=== PATIENT | male | born 1965 | race Caucasian/White ===

== ENCOUNTER 2022-01-25 18:08 | Emergency (ER) | payer MEDICAID, SELFPAY ==
--- NOTE | ~2022-01-25 | CT_ITS ---
EXAMINATION: CT LUMBAR SPINE WITHOUT CONTRAST CLINICAL INFORMATION: Acute on chronic pain sacrum COMPARISON: None TECHNIQUE: No intravenous contrast was utilized. Multidetector helical imaging was performed through the lumbar spine. Coronal and sagittal reformatted images were created. This CT examination was performed using dose optimization techniques as appropriate, variously including the following: *Automated exposure control *Adjustment of mA and/or kV according to patient size (this includes techniques or standardized protocols for targeted exams where dose is matched to indication/reason for exam; i.e. extremities or head) *Use of iterative reconstruction technique DLP; 484 mGy-cm FINDINGS: There is mild anterior wedge compression deformity of L1 which is favored to be chronic. Remaining lumbar vertebral body heights are maintained. Multilevel endplate osteophytes are present. No acute fracture is seen. Lumbar intervertebral disc spaces are relatively well-preserved. No significant stenoses identified, though this would be better assessed on MRI. The sacroiliac joints are intact with degenerative changes noted. Scattered vascular calcifications are present. CT/CT lumbar spine wo con IMPRESSION: Chronic appearing/degenerative changes as noted above. No acute fracture identified. If clinically warranted, assessment for stenoses would be better performed with MRI.
[2022-01-25 20:45] VITALS: BP 131/83; PULSE 89; RESP 16; TEMP 36.5; O2SAT 99; BMI 25.0
--- NOTE | 2022-01-26 02:11 | ED_ITS ---
HPI - General Adult General Chief complaint: Back Pain/Injury Stated complaint: severe back pain/ cant walk Time Seen by Provider: 01/26/22 00:33 Source: patient and family Limitations: no limitations History of Present Illness HPI narrative: This is a 56-year-old male who moved from [place] about 6 months ago. The patient has history of coccyx fracture after falling off of a horse. He subsequently had severe chronic pain and became addicted to opiates for a period of time, had to go through detox. The patient was receiving trigger point and other injections to the area in [place]. Patient has recently had worsened pain. He has had some falls, and his notes that he seems little more unsteady on his feet. He does have diabetes and has some neuropathy. He denies any difficulty with urination or incontinence. He notes the pain is so bad today that he is having trouble walking. Notes that he needs to get plugged into a cash control specialist or pain specialist in [place]. Related Data Previous Rx's Medication Instructions Recorded baclofen 20 mg tablet 20 mg PO TID #20 tab 01/26/22 naproxen 375 mg tablet,delayed 375 mg PO BID #20 tab 01/26/22 release (EC-Naprosyn) Allergies Allergy/AdvReac Type Severity Reaction Status Date / Time No Known Allergies Allergy Mild NONE Unverified 06/12/20 15:23 Review of Systems Review of Systems: As per HPI Yes all other systems are reviewed and are negative Constitutional: Constitutional: Denies fever(s) Eyes: Eyes: Reports as per HPI and Reports no additional eye complaints ENT: Reports system reviewed and no additional complaints, except as documented, Reports as per HPI, Denies nasal congestion, Denies nasal discharge and Denies sore throat Cardiovascular: Cardiovascular: Reports as per HPI, Denies chest pain and Denies dyspnea Respiratory: Respiratory: Reports as per HPI, Denies cough and Denies dyspnea Gastrointestinal: Gastrointestinal: Reports as per HPI, Denies abdominal pain, Denies diarrhea and Denies vomiting Genitourinary: Genitourinary: Reports as per HPI, Denies hematuria, Denies dysuria and Denies urinary frequency Musculoskeletal: Musculoskeletal: Reports back pain and Reports numbness (Decreased sensation to the legs secondary to diabetic neuropathy) Integumentary/Breasts: Skin/Breast: Reports as per HPI and Denies rash Neurologic: Reports numbness (Decreased sensation to the legs secondary to diabetic neuropathy) Psychiatric: Psychiatric: Reports no additional psychiatric complaints and Reports as per HPI Endocrine: Endocrine: Reports no additional endocrine complaints and Reports as per HPI Hematologic/Lymphatic: Hematologic/Lymphatic: Reports no additional hematologic/lymphatic complaints, Reports as per HPI and Reports other (No peripheral edema) Comments: Lower leg swelling [facility] Social History Social History Advance Directives: No Physical Exam ED Vital Signs: Vital Signs - 24 hr 01/25/22 20:45 01/26/22 03:11 Temperature 97.7 F Pulse Rate 89 71 Respiratory Rate 16 15 Blood Pressure 131/83 133/74 Pulse Oximetry 99 96 BMI result Body Mass Index 25.0 Const General: no acute distress Orientation/consciousness: patient oriented x3 HENMT Head: Yes normal to inspection General nose exam: Normal external nose present Mouth: moist mucous membranes Throat: Yes posterior oropharynx normal, Yes tonsils normal and Yes uvula midline Eyes Eyelids: Yes eyelids normal Conjunctivae: conjunctivae normal Pupils: Equal, round and reactive pupils present Neck Neck: Yes supple Resp Effort & Inspection: normal respiratory effort Auscultation: clear to auscultation bilaterally Cardio Rate: regular rate Rhythm: regular rhythm Heart sounds: S1 normal heart sound present, S2 normal heart sound present, no gallops, no murmurs and no rubs GI Inspection: No distended Palpation (GI): Soft to palpation and nontender Auscultation: normal bowel sounds Back/Spine/Pelvis Other: Tender sacral spine Skin General skin exam: other (Warm and dry) Neuro Other: Full power plantar flexion extension bilaterally General: patient oriented x3 and CN's II-XI intact bilaterally Cranial nerves: Yes Equal, round and reactive pupils present Extrem Other: Trace to 1+ pitting edema to the lower legs bilaterally, worse on the left General: Yes no pedal edema Psych Affect: normal affect Attitude: cooperative Medical Decision Making [facility] Narrative Medical decision making narrative: Patient with exacerbation of chronic low back pain, for which he has received extensive evaluation, steroid injections, trigger point injections in the past. Patient has a prior opiate use disorder related to his chronic pain, does not want to receive any opiate type medicines. Patient was given Toradol, Decadron, and Valium and had some improvement in his pain. CT scan not show any concerning findings, the patient has chronic degenerative changes but well- preserved disc heights, and oldL1 compression fracture. Discharge Plan Discharge Clinical Impression: Chronic sacroiliac pain Patient Disposition: Home, Self-Care Instructions: Chronic Pain (ED), Back Pain (ED) Additional Instructions: Follow-up with orthopedics. Use baclofen to help with muscle spasm. Use napr oxen for pain and inflammation Prescriptions: New baclofen 20 mg tablet 20 mg PO TID Qty: 20 0RF naproxen [EC-Naprosyn] 375 mg tablet,delayed release (DR/EC) 375 mg PO BID Qty: 20 0RF Referrals: Abisai Martin MD [Physician] -
[2022-01-26] MEDS: Ketorolac Tromethamine 30 MG/ML VIAL IM (03:00)
[2022-01-26] MEDS: diazePAM 10 MG/2 ML CARTRIDGE 5 MG IM (03:01)
[2022-01-26] MEDS: dexAMETHasone sod phosphate 4 MG/ML VIAL 8 MG IM (03:02)
[2022-01-26 03:11] VITALS: BP 133/74; PULSE 71; RESP 15; O2SAT 96
[2022-01-26 04:00] VITALS: BP 140/88; PULSE 74; RESP 18; TEMP 36.9; O2SAT 96
== END 2022-01-26 04:02 | disposition home or self-care (01) ==
PROVIDERS: Emergency Provider Emergency Medicine
DX: M54.50 Low back pain, unspecified (principal); Z79.899 Other long term (current) drug therapy
CPT/HCPCS: 72131; 96372; 99283; 99284; J1100; J1885; J3360

== ENCOUNTER 2022-06-23 09:08 | Inpatient (IN) | payer MEDICARE, SELFPAY ==
[2022-06-23] VITALS (9 sets, daily range): BP systolic 113–160; BP diastolic 64–116; PULSE 88–104; RESP 13–26; TEMP 36.3–39.5; O2SAT 95–100; BMI 26.7
--- NOTE | ~2022-06-23 | CT_ITS ---
EXAMINATION: CT HEAD WITHOUT CONTRAST CLINICAL INFORMATION: Status post fall with head strike. COMPARISON: None TECHNIQUE: Contiguous axial imaging was performed from the skull base to vertex without intravenous administration of contrast. Coronal and sagittal reformatted images were obtained. This CT examination was performed using dose optimization techniques as appropriate, variously including the following: *Automated exposure control *Adjustment of mA and/or kV according to patient size (this includes techniques or standardized protocols for targeted exams where dose is matched to indication/reason for exam; i.e. extremities or head) *Use of iterative reconstruction technique DLP: 1781 mGy-cm FINDINGS: There is mild widening of the cortical sulci and associated ventriculomegaly. The lateral ventricles are symmetrical. The third and fourth ventricles are in their normal midline position. The basilar and prepontine cisterns are unremarkable. There is no acute intra or extracerebral abnormality. There is no mass effect or midline shift. Sections through the bony calvarium are unremarkable. The orbits are intact. The paranasal sinuses are clear. The mastoid air cells are clear. Mild mid nasal septal deviation, apex of the right. CT/CT head/brain wo IV con IMPRESSION: No acute intracranial pathology.
--- NOTE | ~2022-06-23 | XR_ITS ---
EXAMINATION: XR CHEST CLINICAL INFORMATION: Fever and tachypnea COMPARISON: Previous chest x-ray August 2009 TECHNIQUE: Frontal view of the chest was obtained. FINDINGS: The cardiac and mediastinal contours are normal. The lung volumes are low. There are increased markings at the left lung base questionable for atelectasis or small pneumonia. There is minimal subsegmental atelectasis at the right lung base. There is no pleural effusion or pneumothorax. There are degenerative changes of the spine. XR/XR chest 1V IMPRESSION: Low lung volumes. Question atelectasis or small infiltrate at the left lung base.
--- NOTE | ~2022-06-23 | CT_ITS ---
EXAMINATION: CT LUMBAR SPINE WITHOUT CONTRAST CLINICAL INFORMATION: Fall, increased back pain. COMPARISON: CT lumbar spine noncontrast 01/26/2022 TECHNIQUE: CT lumbar spine is performed without intravenous or intrathecal contrast. Additional 2-D reformatted coronal and sagittal images are generated on the CT workstation and uploaded to PACS. This CT examination was performed using dose optimization techniques as appropriate, variously including the following: *Automated exposure control *Adjustment of mA and/or kV according to patient size (this includes techniques or standardized protocols for targeted exams where dose is matched to indication/reason for exam; i.e. extremities or head) *Use of iterative reconstruction technique DLP; 541 mGy-cm FINDINGS: There is normal lumbar segmentation with 5 nonrib-bearing lumbar vertebrae with normal lumbar lordosis. There is no acute bony abnormality. Old L1 superior endplate depression is similar to prior CT 01/26/2022. This again shows ridging anterior osteophyte. There is no visible fracture and no spondylolisthesis or spondylolysis. No perched facet. No interval joint narrowing. No bony destructive process. No paraspinal soft tissue swelling. No retroperitoneal hematoma. The kidney show no hydronephrosis or perinephric stranding. Abdominal aorta shows no aneurysmal enlargement. CT/CT lumbar spine wo IV con IMPRESSION: -No acute bony abnormality. No visible fracture, spondylolisthesis, or spondylolysis. -Superior endplate depression L1, similar to prior CT 01/26/2022. No paraspinal soft tissue swelling or retroperitoneal hematoma.
--- NOTE | 2022-06-23 09:32 | ECG_ITS ---
Test Reason : Fall Blood Pressure : / mmHG Vent. Rate : 096 BPM Atrial Rate : 096 BPM P-R Int : 148 ms QRS Dur : 086 ms QT Int : 344 ms P-R-T Axes : -25 -28 -18 degrees QTc Int : 434 ms Normal sinus rhythm Nonspecific T wave abnormality Abnormal ECG When compared with ECG of 09-SEP-2009 16:25, Nonspecific T wave abnormality is now Present Referred By: Ashlee Greenfield Electronically Signed By:NASIM FONTENOT
--- NOTE | 2022-06-23 09:32 | ED_ITS ---
HPI - Fall General Chief Complaint: Fall Stated Complaint: witnessed fall- no head strike Time Seen by Provider: 06/23/22 09:18 Source: patient and family Limitations: no limitations History of Present Illness HPI Narrative: Patient presents your the emergency department via EMS with his sister. Sister aids in providing detailed history and past medical history. Patient reportedly had a fall today. Patient states that his legs gave out. Patient's sister reports that this is not uncommon. His gait is unsteady reportedly due to the medications he takes to control his psychiatric conditions he is ambulatory with a cane at baseline and sometimes a walker. Last fall was earlier this month. Typically she is able to get him up with the assist of family members but today was unable to therefore EMS was called. The fall was witnessed. Denies loss of consciousness. Uncertain whether head strike occurred. Patient denies headach e, dizziness, lightheadedness, vision changes, neck pain, neck stiffness. He is reporting lower back pain. Denies chest pain, palpitations, shortness of, difficulty breathing nausea, vomiting, abdominal pain, dysuria, urinary frequency, numbness or tingling of the extremities. Patient is noted to have a resting tremor to all extremities which per his sister is normal at baseline. Denies any precipitating symptoms over the past few days. Related Data Home Medications Medication Instructions Recorded Confirmed acetaminophen 650 mg 650 mg PO TID 06/23/22 06/23/22 tablet,extended release (Mapap Arthritis Pain) benztropine 0.5 mg tablet 1 tab PO QPM 06/23/22 06/23/22 diclofenac sodium 1 % topical gel 2 g topical BID PRN Pain 06/23/22 06/23/22 divalproex 500 mg tablet,delayed 2 tab PO DAILY 06/23/22 06/23/22 release duloxetine 30 mg capsule,delayed 1 cap PO DAILY 06/23/22 06/23/22 release fluoxetine 20 mg capsule 2 cap PO BID 06/23/22 06/23/22 gabapentin 300 mg capsule 1 cap PO TID 06/23/22 06/23/22 hydrocortisone 1 % topical cream 1 appl topical BID PRN Rash 06/23/22 06/23/22 insulin glargine 100 unit/mL (3 25 unit subcut QAM 06/23/22 06/23/22 mL) subcutaneous pen (Lantus Solostar U-100 Insulin) insulin lispro 100 unit/mL 0 sliding scale dose subcut TIDAC 06/23/22 06/23/22 subcutaneous pen lidocaine 4 % topical cream 1 appl topical BID PRN pain 06/23/22 06/23/22 metoprolol tartrate 50 mg tablet 1 tab PO BID 06/23/22 06/23/22 omeprazole 40 mg capsule,delayed 1 cap PO DAILY 06/23/22 06/23/22 release primidone 50 mg tablet 1 tab PO DAILY 06/23/22 06/23/22 quetiapine 100 mg tablet 200 mg PO BEDTIME 06/23/22 06/23/22 rosuvastatin 40 mg tablet 1 tab PO BEDTIME 06/23/22 06/23/22 trazodone 100 mg tablet 1 tab PO BEDTIME 06/23/22 06/23/22 ziprasidone HCl 60 mg capsule 1 cap PO BEDTIME 06/23/22 06/23/22 Allergies Allergy/AdvReac Type Severity Reaction Status Date / Time No Known Allergies Allergy Mild NONE Unverified 06/12/20 15:23 Review of Systems Review of Systems: Constitutional: No weight loss. No fever. No chills. Positive weakness. No fatigue. Eye: No swelling. No redness. ENT: No sore throat. No rhinorrhea. No nasal congestion. No difficulty swallowing. Skin: No rash. No itching. Cardiovascular: No chest pain. No chest pressure. No palpitations. No pedal edema. Respiratory: No shortness of breath. No cough. No sputum production. Gastrointestinal: No nausea. No vomiting. No diarrhea. No abdominal pain. No blood in stool. Genitourinary: No burning micturition. No urinary frequency. No incontinence. Neurologic: No headache. No dizziness. No pre-syncope/ syncope. No unilateral weakness. No numbness. No tingling. No change in bowel or bladder control. Musculoskeletal: No muscle pain. Positive back pain. No joint pain. No stiffness. Hematologic: No bleeding. No bruising. Lymphatics: No enlarged lymph nodes. Psychiatric:No depression. No anxiety. Yes all other systems are reviewed and are negative PMFSH Past Medical History Attestation statement: The following information was validated with the patient. Source: old records reviewed Medical History Bipolar 1 disorder Chronic low back pain Depression Schizophrenia Tremor of both hands Type 2 diabetes mellitus Family History Family History Mother HTN (hypertension) Diabetes Alzheimer disease Father Diabetes HTN (hypertension) Schizophrenia PVD (peripheral vascular disease) CAD (coronary artery disease) Bipolar 1 disorder Social History Social History Patient Tobacco Use Status: Former Tobacco user Use of substances other than those prescribed or required for medical reasons: No Advance Directives: No Physical Exam Vital Signs: Vital Signs: Last Vital Signs Temp 99.6 F 06/23/22 14:58 Pulse 94 06/23/22 14:54 Resp 21 H 06/23/22 14:54 BP 146/64 H 06/23/22 14:54 Pulse Ox 98 06/23/22 14:54 O2 Del Method 06/23/22 14:54 BMI result Body Mass Index 26.7 Appearance: Alert.?Oriented to person, place and time. No acute distress.?Normal affect. Head: Normocephalic atraumatic Eyes: Pupils equal, round and reactive to light.? EOMI ENT: Pharynx normal.?? Neck: Normal inspection.? Neck supple.? No midline cervical spine tenderness, step-offs, deformities Back: No midline thoracic or lumbar spine tenderness, step-offs, deformities? CVS: Heart sounds normal. Normal heart rate and rhythm.? Pulses normal.?? Respiratory: No respiratory distress.? Lung sounds clear to auscultation bilaterally?? Abdomen: Soft and non-tender. Normoactive bowel sounds. Skin: Skin warm and dry.? Normal skin color.? ? Extremities: No lower extremity edema.? No calf ttp? Neuro: Moves all extremities spontaneously. Sensation intact bilaterally. CN II- XII intact. No focal neuro deficits. Course Course Course Narrative: Patient is a 57-year-old male with a past medical history of chronic back pain, bipolar disorder, schizophrenia, hypertension, type 2 diabetes, and chronic resting tremor. Presents to the emergency department for evaluation after a fall, reportedly due to legs giving out which is not uncommon for patient. Denies any precipitating symptoms. Only complaint at this time is lower back pain. Moving all extremities appropriately. Will obtain CBC to evaluate for leukocytosis/ anemia, CMP to evaluate for abnormal electrolytes /abnormal renal function/ abnormal hepatic function, EKG and troponin to evaluate for ischemia/ACS, Urinalysis, CT of the head and CT of lumbar spine. Reevaluation(s) Reevaluation #1: CT of the head with no acute abnormalities. CT of the lumbar spine with no acute abnormalities, similar L1 endplate depression as seen previously. CBC reveals a normocytic anemia, CMP is overall unremarkable. Troponin <3.5, EKG reveals normal sinus rhythm. Patient's sister reporting that his tremor appears to be worse than baseline at this time. Notified by nursing staff that he is febrile 103.1, pulse 104,will obtain lactic acid, blood cultures, urinalysis as previously ordered, chest x-ray, COVID-19, acetaminophen for fever. Infection suspected at this time, will cover prophylactically with Ceftriaxone IV for possible pulmonary or genitourinary source of infection. Patient is altered, attempting to get out to bed, unsteady gait, unable to state where he is trying to go, oriented only to person. Time: 11:57 Reevaluation #2: Chest x-ray reveals question of atelectasis versus small infiltrate at the left lung base. Urinalysis is unremarkable no evidence of infection. COVID-19 testing is negative. Lactic acid is 1.5. Spoke with hospitalist Service, Dr. Sigala, accepts patient for admission to medicine service. Patient and sister, Moriah updated on plan of care. Time: 13:21 MDM - Fall Medical Records Attestation: I reviewed the patient's medical records. Lab Data Attestation: I reviewed the patient's lab results. Result diagrams: 06/23/22 10:44 06/23/22 10:44 Labs: Lab Results 06/23/22 06/23/22 06/23/22 Range/Units 10:44 10:44 10:44 WBC 8.3 (4.8-10.8) X10*3/uL RBC 4.52 L (4.60-5.80) X10*6/uL Hgb 13.5 L (14.0-18.0) g/dl Hct 39.2 L (42.0-52.0) % MCV 86.7 (80.0-98.0) fL MCH 29.9 (27.0-33.0) pg MCHC 34.4 (31.0-36.0) g/dl RDW 12.3 (11.0-16.0) % Plt Count 155 L (160-400) X10*3/uL MPV 9.4 (9.4-12.4) fL Immature Gran % (Auto) 0.2 (0.0-0.4) % Neut % (Auto) 80.2 H (45-73) % Lymph % (Auto) 9.6 L (20-40) % [place] % (Auto) 7.7 (2-11) % Eos % (Auto) 1.9 (0-4) % Baso % (Auto) 0.4 (0-2) % Lymph # (Auto) 0.8 L (1.2-4.9) X10*3/uL [place] # (Auto) 0.6 (0.1-1.2) X10*3/uL Eos # (Auto) 0.2 (0.0-0.4) X10*3/uL Baso # (Auto) 0.0 (0.0-0.2) X10*3/uL Abs Immat Gran (auto) 0.02 (0.00-0.03) X10*3/uL Absolute Neuts (auto) 6.7 (2.0-8.3) x10*3/uL Absolute Nucleated RBC 0.000 (0.0-0.012) X10*3/uL Nucleated RBC % (auto) 0.0 (0.0-0.2) /100WBC Sodium 140 (135-145) mmol/L Potassium 3.9 (3.3-5.1) mmol/L Chloride 99 (96-108) mmol/L Carbon Dioxide 32 H (22-29) mmol/L Anion Gap 13 (12-20) BUN 9 (9-16) mg/dL Creatinine 1.10 (0.5-1.4) mg/dL Estim Creat Clear Calc 70.8 Estimated GFR > 60 Random Glucose 165 H (60-115) mg/dL Lactic Acid (0.5-2.0) mmol/L Calcium 9.8 (8.4-10.2) mg/dL Magnesium 1.6 (1.6-2.6) mg/dL Total Bilirubin 0.5 (0.0-1.0) mg/dL AST 21 (5-37) U/L ALT 33 (0-40) U/L Alkaline Phosphatase 76 (39-117) U/L Troponin I High Sens < 3.5 (<3.5-35.0) ng/L Total Protein 7.4 (6.5-8.0) g/dL Albumin 4.2 (3.5-5.0) g/dL Urine Color Urine Appearance Urine pH (5.0-9.0) Ur Specific [place] (1.005-1.025) Urine Protein (Neg-Trace) mg/dL Urine Glucose (UA) (Negative) mg/dL Urine Ketones (Negative) mg/dL Urine Blood (Negative) Urine Nitrite (Negative) Ur Leukocyte Esterase (Negative) COVID-19 (JERO) (Negative) COVID-19 Clin Com 06/23/22 06/23/22 06/23/22 Range/Units 12:26 12:26 12:55 WBC (4.8-10.8) X10*3/uL RBC (4.60-5.80) X10*6/uL Hgb (14.0-18.0) g/dl Hct (42.0-52.0) % MCV (80.0-98.0) fL MCH (27.0-33.0) pg MCHC (31.0-36.0) g/dl RDW (11.0-16.0) % Plt Count (160-400) X10*3/uL MPV (9.4-12.4) fL Immature Gran % (Auto) (0.0-0.4) % Neut % (Auto) (45-73) % Lymph % (Auto) (20-40) % [place] % (Auto) (2-11) % Eos % (Auto) (0-4) % Baso % (Auto) (0-2) % Lymph # (Auto) (1.2-4.9) X10*3/uL [place] # (Auto) (0.1-1.2) X10*3/uL Eos # (Auto) (0.0-0.4) X10*3/uL Baso # (Auto) (0.0-0.2) X10*3/uL Abs Immat Gran (auto) (0.00-0.03) X10*3/uL Absolute Neuts (auto) (2.0-8.3) x10*3/uL Absolute Nucleated RBC (0.0-0.012) X10*3/uL Nucleated RBC % (auto) (0.0-0.2) /100WBC Sodium (135-145) mmol/L Potassium (3.3-5.1) mmol/L Chloride (96-108) mmol/L Carbon Dioxide (22-29) mmol/L Anion Gap (12-20) BUN (9-16) mg/dL Creatinine (0.5-1.4) mg/dL Estim Creat Clear Calc Estimated GFR Random Glucose (60-115) mg/dL Lactic Acid 1.5 (0.5-2.0) mmol/L Calcium (8.4-10.2) mg/dL Magnesium (1.6-2.6) mg/dL Total Bilirubin (0.0-1.0) mg/dL AST (5-37) U/L ALT (0-40) U/L Alkaline Phosphatase (39-117) U/L Troponin I High Sens (<3.5-35.0) ng/L Total Protein (6.5-8.0) g/dL Albumin (3.5-5.0) g/dL Urine Color Yellow Urine Appearance Clear Urine pH 8.5 (5.0-9.0) Ur Specific [place] 1.015 (1.005-1.025) Urine Protein Negative (Neg-Trace) mg/dL Urine Glucose (UA) 500 H (Negative) mg/dL Urine Ketones Negative (Negative) mg/dL Urine Blood Negative (Negative) Urine Nitrite Negative (Negative) Ur Leukocyte Esterase Negative (Negative) COVID-19 (JERO) Negative (Negative) COVID-19 Clin Com See Note Imaging Data CT scan - head: Radiologist's impression: CT/CT head/brain wo IV con IMPRESSION: No acute intracranial pathology. CT Lumbar: Radiologist's impression: CT/CT lumbar spine wo IV con IMPRESSION: -No acute bony abnormality. No visible fracture, spondylolisthesis, or spondylolysis. ? -Superior endplate depression L1, similar to prior CT 01/26/2022. No paraspinal soft tissue swelling or retroperitoneal hematoma.? Chest x-ray: Radiologist's impression: XR/XR chest 1V IMPRESSION: Low lung volumes. Question atelectasis or small infiltrate at the left lung base. ECG Data Attestation: I personally reviewed and interpreted this ECG as follows: ECG interpretation date: 06/23/22 Interpretation: Rate: 96 Rhythm:? Normal sinus rhythm [place]:? Normal Normal P waves.? Normal JAMAL.?? Normal QRS complex.?? ST T wave :??No ST elevation, no ST depression, no T-wave inversion qTC: 434 prior studies:? None available for review The study has been interpreted contemporaneously by me. Discharge Plan Discharge Clinical Impression: Community acquired pneumonia Patient Disposition: Admitted As Inpatient
[2022-06-23 10:47] LABS: MANUAL DIFF FLAG NO
[2022-06-23 10:50] LABS: Basophils Percent Auto 0.4 % (0-2); Eosinophils Absolute Auto 0.2 X10*3/uL (0.0-0.4); Eosinophils Percent Auto 1.9 % (0-4); Hematocrit 39.2 % (42.0-52.0); Hemoglobin 13.5 g/dl (14.0-18.0); Imm Gran Abs Auto 0.02 X10*3/uL (0.00-0.03); Imm Gran Pct Auto 0.2 % (0.0-0.4); Lymphocytes Absolute Auto 0.8 X10*3/uL (1.2-4.9); Lymphocytes Percent Auto 9.6 % (20-40); Mean Corpuscular HGB Conc 34.4 g/dl (31.0-36.0); Mean Corpuscular Hemoglobin 29.9 pg (27.0-33.0); Mean Corpuscular Volume 86.7 fL (80.0-98.0); Mean Platelet Volume 9.4 fL (9.4-12.4); Monocytes Absolute Auto 0.6 X10*3/uL (0.1-1.2); Monocytes Percent Auto 7.7 % (2-11); Neutrophils Absolute Auto 6.7 x10*3/uL (2.0-8.3); Neutrophils Percent Auto 80.2 % (45-73); Platelet Count 155 X10*3/uL (160-400); Red Blood Count 4.52 X10*6/uL (4.60-5.80); Red Cell Distribution Width 12.3 % (11.0-16.0); White Blood Count 8.3 X10*3/uL (4.8-10.8)
[2022-06-23 11:07] LABS: Troponin-I High Sensitivity < 3.5 ng/L (<3.5-35.0)
[2022-06-23 11:09] LABS: Alanine Aminotransferase 33 U/L (0-40); Albumin Level 4.2 g/dL (3.5-5.0); Alkaline Phosphatase 76 U/L (39-117); Anion Gap 13 (12-20); Aspartate Amino Transferase 21 U/L (5-37); Bilirubin Total 0.5 mg/dL (0.0-1.0); Blood Urea Nitrogen 9 mg/dL (9-16); Calcium 9.8 mg/dL (8.4-10.2); Carbon Dioxide 32 mmol/L (22-29); Chloride 99 mmol/L (96-108); Creatinine Clr Calc Pharmacy 70.8; Estimated Glomerular Filt Rate > 60; Glucose Random 165 mg/dL (60-115); Magnesium 1.6 mg/dL (1.6-2.6); Potassium 3.9 mmol/L (3.3-5.1); Sodium 140 mmol/L (135-145); Total Protein 7.4 g/dL (6.5-8.0)
--- NOTE | 2022-06-23 12:14 | PC.NURSE ---
PT BP is with in the normal limit, Pt is on the telemetry and it shows sinus TACHY, AND HE IS AFRIBILE OF 103.1. RN notified provider. will continue to monitor.
[2022-06-23] MEDS: 0.9 % Sodium Chloride 1,000 ML 999 ML IV (12:22)
[2022-06-23] MEDS: cefTRIAXone sodium 1 GM in 0.9 % Sodium Chloride 50 ML IV (12:38)
[2022-06-23] MEDS: Acetaminophen 325 MG TABLET 975 MG PO (12:57)
[2022-06-23 13:09] LABS: Lactic Acid 1.5 mmol/L (0.5-2.0)
--- NOTE | 2022-06-23 13:09 | PC.NURSE ---
Addendum entered by Pepito Norman 06/23/22 13:19: Pt had the V/S at 11:a.m. Pt had a fiber of 103.1 rectal, MARIA ALEJANDRA Ge and provider was notified. This RN completed the assessment on pt but pt was restless and not communicating very well verbally. Pt nanny caregiver/sister is at bedside, and reported that was not normal of him to not talk. Pt had the alert on sepsis protocol and the check list and labs were drawn. Pt had IVF, and meds administered by order. RN will continue with condom cath. Will continue to monitor. Original Note: Sepsis protocol check list was completed. Pt is frible and BP is within the normal limit, pt is restlessness, and the condom cath fall off, RN will placed another condom cath. Pt was given a thin blanket and meds as order by the provider. Pt on the monitor is Sinus Tachy. RR 24. Will continue to monitor.
[2022-06-23 13:12] LABS: Appearance Urine Clear; Color Urine Yellow; Glucose Urine UA 500 mg/dL (Negative); Leukocyte Esterase Urine Negative (Negative); Nitrite Urine Negative (Negative); PH 8.5 (5.0-9.0); Specific Gravity - Urine 1.015 (1.005-1.025); Urine Blood Negative (Negative); Urine Ketones Negative (Negative); Urine Protein Negative (Neg-Trace)
[2022-06-23 13:14] LABS: COVID-19 Test Negative (Negative); IDNOW Serial# 9DB6401D
--- NOTE | 2022-06-23 13:45 | PC.NURSE ---
Pt IVF still running.
--- NOTE | 2022-06-23 14:21 | PM.IMHP ---
History of Present Illness Date of Service: 06/23/22 Attending physician on admission: Sj Sigala Chief Complaint: fall Patient is a 57-year-old male with a past medical history of chronic back pain, bipolar disorder, schizophrenia, hypertension, type 2 diabetes, and chronic tremor presented to the ED this morning after sustaining a fall because his legs gave out . The patient is a poor historian and much of the history is obtained from his sister with whom the patient lives. His sister, Moriah, states that the patient has had multiple recurrent falls related to his psychiatric medications making him on stable when walking as well as groggy. He does ambulate with a cane and occasionally a walker at baseline. On arrival, she stated she was uncertain of whether had trace occurred. The patient does deny any headaches, dizziness, lightheadedness, blurred vision, diplopia, neck pain, palpitations, shortness of breath, chest pain, nausea, vomiting, abdominal pain, urinary symptoms. He is reporting low back pain but this is noted to be chronic. Head CT negative for any acute intracranial abnormality. CT of the lumbar spine without any acute bony abnormality including fracture, spondylolisthesis, or spondylosis. There is a carrier endplate depression at L1 that has been unchanged without any paraspinal soft tissue swelling or retroperitoneal hematoma. Chest x-ray with low lung volumes as well as question of atelectasis versus small infiltrate at the left lung base. Patient noted to be febrile at 103.1, tachycardia 104, and tachypneic at 26. no hypotension or hypoxia. No leukocytosis. Lactic acid 1.5. Renal function normal. He denies fevers at home, chills, cough, sob, wheezing. No chronic lung disease. Patient denies any smoking. Patient to be admitted for left lower lobe pneumonia with sepsis as well as recurrent falls. Review of Systems Review of Systems: General: No fevers, malaise, unintentional weight loss HEENT: No blurred vision or diplopia Cardiovascular: No chest pain, palpitations, or leg edema Respiratory: No shortness of breath, wheezing, cough GI: No abdominal pain, nausea, vomiting, diarrhea, constipation, melena, hematochezia : No dysuria, hematuria, increased urinary frequency MSK: +low back pain, +falls Neuro: +weakness. No headaches, paresthesias Skin: No rashes or lesions [facility] Medical History Bipolar 1 disorder Chronic low back pain Depression Schizophrenia Tremor of both hands Type 2 diabetes mellitus Family History Mother HTN (hypertension) Diabetes Alzheimer disease Father Diabetes HTN (hypertension) Schizophrenia PVD (peripheral vascular disease) CAD (coronary artery disease) Bipolar 1 disorder Social History Patient Tobacco Use Status: Former Tobacco user Use of substances other than those prescribed or required for medical reasons: No Advance Directives: No Meds Allergies Allergy/AdvReac Type Severity Reaction Status Date / Time No Known Allergies Allergy Mild NONE Unverified 06/12/20 15:23 Active Medications: Current Medications Acetaminophen (Acetaminophen 325 Mg Tablet) 650 mg PO Q6H PRN PRN Reason: Pain, Mild, fever Docusate Sodium (Docusate Sodium 100 Mg Capsule) 100 mg PO BID PRN PRN Reason: Constipation Enoxaparin Sodium (Enoxaparin Sodium 40 Mg/0.4 Ml Syringe) 40 mg SUBCUT Q24H [facility] Azithromycin 500 mg/ Sodium (Chloride) 250 mls @ 125 mls/hr IV ONCE ONE Stop: 06/23/22 15:28 Ondansetron HCl (Ondansetron Hcl 4 Mg/2 Ml Vial) 4 mg IVPUSH Q8H PRN PRN Reason: Nausea and Vomiting Pharmacy Consult (Consult Rx Perform Med Rec) 1 each MISCELLANE ONCE PRN PRN Reason: Consult order Sodium Chloride (0.9 % Sodium Chloride Flush 3 Ml Syringe) [facility] Medication Instructions Recorded Confirmed Last Taken Type acetaminophen 650 mg 650 mg PO TID 06/23/22 06/23/22 06/23/22 History tablet,extended release (Mapap Arthritis Pain) benztropine 0.5 mg tablet 1 tab PO QPM 06/23/22 06/23/22 06/22/22 History diclofenac sodium 1 % topical gel 2 g topical BID PRN Pain 06/23/22 06/23/22 Unknown History divalproex 500 mg tablet,delayed 2 tab PO DAILY 06/23/22 06/23/22 06/23/22 History release duloxetine 30 mg capsule,delayed 1 cap PO DAILY 06/23/22 06/23/22 06/23/22 History release fluoxetine 20 mg capsule 2 cap PO BID 06/23/22 06/23/22 06/23/22 History gabapentin 300 mg capsule 1 cap PO TID 06/23/22 06/23/22 06/23/22 History hydrocortisone 1 % topical cream 1 appl topical BID PRN Rash 06/23/22 06/23/22 Unknown History insulin glargine 100 unit/mL (3 25 unit subcut QAM 06/23/22 06/23/22 06/23/22 History mL) subcutaneous pen (Lantus Solostar U-100 Insulin) insulin lispro 100 unit/mL 0 sliding scale dose subcut TIDAC 06/23/22 06/23/22 06/23/22 History subcutaneous pen lidocaine 4 % topical cream 1 appl topical BID PRN pain 06/23/22 06/23/22 Unknown History metoprolol tartrate 50 mg tablet 1 tab PO BID 06/23/22 06/23/22 06/23/22 History omeprazole 40 mg capsule,delayed 1 cap PO DAILY 06/23/22 06/23/22 06/23/22 History release primidone 50 mg tablet 1 tab PO DAILY 06/23/22 06/23/22 06/23/22 History quetiapine 100 mg tablet 200 mg PO BEDTIME 06/23/22 06/23/22 06/22/22 History rosuvastatin 40 mg tablet 1 tab PO BEDTIME 06/23/22 06/23/22 06/22/22 History trazodone 100 mg tablet 1 tab PO BEDTIME 06/23/22 06/23/22 06/22/22 History ziprasidone HCl 60 mg capsule 1 cap PO BEDTIME 06/23/22 06/23/22 06/22/22 History Physical Exam Vital Signs and Narrative: Vital Signs: Last Vital Signs Temp 102.5 F H 06/23/22 12:16 Pulse 104 H 06/23/22 12:16 Resp 26 H 06/23/22 12:16 BP 137/94 H 06/23/22 12:16 Pulse Ox 100 06/23/22 12:16 O2 Del Method 06/23/22 12:16 BMI result Body Mass Index 26.7 Constitutional - Drowsy providing limited history, but no distress Eyes - PERRLA, EOMI Cardiovascular - S1S2, RRR, No edema Respiratory - Normal lung expansion, Normal respiratory effort, No respiratory distress, CTA bilaterally Gastrointestinal - NT / ND; +BS; No rebound or guarding Extremities - no calf tenderness bilaterally, no swelling Skin - Warm/Dry Neurological - Alert & oriented x3 but a poor historian, CN II - XII in tact, 4/5 strength BUE and BLE Psychological - Appropriate affect Results Labs CBC and Chem 7: 06/23/22 10:44 06/23/22 10:44 Labs: Laboratory Results - last 24 hr 06/23/22 06/23/22 06/23/22 10:44 10:44 12:26 MCV 86.7 MCH 29.9 MCHC 34.4 RDW 12.3 Plt Count 155 L MPV 9.4 Immature Gran % (Auto) 0.2 Neut % (Auto) 80.2 H Lymph % (Auto) 9.6 L [place] % (Auto) 7.7 Eos % (Auto) 1.9 Baso % (Auto) 0.4 Lymph # (Auto) 0.8 L [place] # (Auto) 0.6 Eos # (Auto) 0.2 Baso # (Auto) 0.0 Abs Immat Gran (auto) 0.02 Absolute Neuts (auto) 6.7 Absolute Nucleated RBC 0.000 Nucleated RBC % (auto) 0.0 Anion Gap 13 Estim Creat Clear Calc 70.8 Estimated GFR > 60 Random Glucose 165 H Lactic Acid 1.5 Calcium 9.8 Magnesium 1.6 Total Bilirubin 0.5 AST 21 ALT 33 Alkaline Phosphatase 76 Total Protein 7.4 Albumin 4.2 Urine Color Urine Appearance Urine pH Ur Specific [place] Urine Protein Urine Glucose (UA) Urine Ketones Urine Blood Urine Nitrite Ur Leukocyte Esterase COVID-19 (JERO) COVID-19 Clin Com 06/23/22 06/23/22 12:26 12:55 MCV MCH MCHC RDW Plt Count MPV Immature Gran % (Auto) Neut % (Auto) Lymph % (Auto) [place] % (Auto) Eos % (Auto) Baso % (Auto) Lymph # (Auto) [place] # (Auto) Eos # (Auto) Baso # (Auto) Abs Immat Gran (auto) Absolute Neuts (auto) Absolute Nucleated RBC Nucleated RBC % (auto) Anion Gap Estim Creat Clear Calc Estimated GFR Random Glucose Lactic Acid Calcium Magnesium Total Bilirubin AST ALT Alkaline Phosphatase Total Protein Albumin Urine Color Yellow Urine Appearance Clear Urine pH 8.5 Ur Specific [place] 1.015 Urine Protein Negative Urine Glucose (UA) 500 H Urine Ketones Negative Urine Blood Negative Urine Nitrite Negative Ur Leukocyte Esterase Negative COVID-19 (JERO) Negative COVID-19 Clin Com See Note Imaging Radiologist's Impressions: Impressions Head CT 06/23/22 10:38 IMPRESSION: No acute intracranial pathology. Lumbar Spine CT 06/23/22 10:38 IMPRESSION: -No acute bony abnormality. No visible fracture, spondylolisthesis, or spondylolysis. -Superior endplate depression L1, similar to prior CT 01/26/2022. No paraspinal soft tissue swelling or retroperitoneal hematoma. Chest X-Ray 06/23/22 12:04 IMPRESSION: Low lung volumes. Question atelectasis or small infiltrate at the left lung base. Assessment and Plan (1) Community acquired pneumonia: Status: Acute (2) Sepsis: Status: Acute (3) Recurrent falls: Status: Acute Plan Patient is a 57-year-old male with a past medical history of chronic back pain, bipolar disorder, schizophrenia, hypertension, type 2 diabetes, and chronic tremor admitted for pneumonia with sepsis and recurrent falls. 1-Sepsis secondary to pneumonia -Received 1L NS bolus in ED. Continue IVF -Continue rocephin and change zithromax to doxy -No leukocytosis. Febrile, tachycardia likely secondary to fever, and tachypenic. 2-Pneumonia -CXR with lll infiltrate. COVID19 negative -Continue IV ceftriaxone. Change zithromax to doxycycline -Not hypoxic 3-Recurrent falls -He and sister report psychiatric medications cause drowsiness and unsteadiness. -Psych consult placed for medication review -PT eval ordered 4-Insulin dependent type 2 diabetes -Continue lantus. Humalog ssi -POC glucose -Diabetic diet 5-Schizophrenia/bipolar disorder -Continue home meds for now -psych consult placed 6-Chronic low back pain -lumbar CT without acute changes -Continue gabapentin and tylenol 7-HLD -Continue crestor DVT prophylaxis- lovenox Full code Pt reuquires inpt stay at least 2 midnights for management of pneumonia with sepsis requiring IV abx and IVF. Quality Stroke Does the patient have a stroke diagnosis?: No VTE Prior VTE?: No VTE Risk Level:: Medical - moderate - high VTE Device Contraindication: Treatment Not Indicated VTE Drug Contraindication: N/A - Med Ordered
--- NOTE | 2022-06-23 14:27 | PHA.MEDREC ---
Pharmacy Consult ? Medication Reconciliation Pharmacy has completed the medication reconciliation. Contacted patient's sister, Moriah, who was able to confirm patient medications. Yoselin Pedroza, TeresaD
[2022-06-23] MEDS: Azithromycin 500 MG in 0.9 % Sodium Chloride 250 ML 125 MG IV (14:57)
[2022-06-23] MEDS: Enoxaparin Sodium 40 MG/0.4 ML SYRINGE SUBCUT (14:58)
--- NOTE | 2022-06-23 15:17 | PC.NURSE ---
Pt IVF were running slow, Pt first V/S was obtain and were normal. Pt has low grade fever. Pt administer meds as order. Pt Antibiotics are running. will obtain then second BP within an hour.
[2022-06-23] MEDS: Acetaminophen 325 MG TABLET 650 MG PO (17:12)
--- NOTE | 2022-06-23 17:14 | PC.NURSE ---
patient a&ox2, pt medicated for 10/ headache with tylenol, monitoring tech nsr, vss, pts iv antibiotics continue to run as he has to be reminded to keep arm straight, will begin LR after abx finished, call ribeiro within reach, will continue to monitor
[2022-06-23] MEDS: Benztropine Mesylate 0.5 MG TABLET PO (18:02)
--- NOTE | 2022-06-23 18:03 | PC.NURSE ---
pt medicated per order
[2022-06-23] MEDS: Lactated Ringers 1,000 ML 100 ML IVCONT (18:42)
--- NOTE | 2022-06-23 21:02 | PC.NURSE ---
tech notified this nurse that the patient has a temp, pt not due for tylenol as of yet, dr hammonds has been notified, will continue to monitor
--- NOTE | 2022-06-23 21:05 | MHC.CM.PN ---
IMM 06/23. CM met with admitted patient with bed assignment pending. Pt lives with sister. Uses a cane/walker. Sister is caregiver through [facility]. Pt does not have a guardian. No HCP. Reviewed, completed and signed. Copies given and uploaded into [employer] and [employer]. HCP/sister Moriah Morris ([phone]).Vax x2/boosted x1. PCP Crissy Ritter. Psychiatrist Candace Hastings. Pt is a Rastafarian. PT and psych consult for medication management ordered. Sister is concerned that pt tremors are worsening and may be due to his psych medications. Pt is agreeable to home with PT or STR. Sister will transport home. CM to follow for D/C needs. No referrals placed yet. Awaiting PT evalution. CM to follow for d/c planning.
[2022-06-23] MEDS: traZODone HCL 100 MG TABLET PO (22:19)
[2022-06-23] MEDS: Gabapentin 300 MG CAPSULE PO (22:19)
[2022-06-23] MEDS: Ibuprofen 400 MG TABLET PO (22:19)
[2022-06-23] MEDS: Atorvastatin Calcium 80 MG TABLET PO (22:19)
--- NOTE | 2022-06-23 22:19 | PC.NURSE ---
kian called for missing meds
[2022-06-23] MEDS: Metoprolol Tartrate 50 MG TABLET PO (22:23)
[2022-06-23] MEDS: FLUoxetine HCl 20 MG CAPSULE 40 MG PO (22:23)
[2022-06-23] MEDS: QUEtiapine Fumarate 200 MG TABLET PO (22:23)
[2022-06-23] MEDS: Ziprasidone 60 MG CAPSULE PO (22:23)
[2022-06-23] MEDS: Doxycycline Hyclate 100 MG in 0.9 % Sodium Chloride 250 ML 166.67 MG IV (22:28)
[2022-06-24] VITALS (17 sets, daily range): BP systolic 79–146; BP diastolic 7–94; PULSE 82–105; RESP 15–24; TEMP 36.1–38; O2SAT 94–99
[2022-06-24] MEDS: Acetaminophen 325 MG TABLET 650 MG PO (00:21)
--- NOTE | 2022-06-24 02:29 | PC.NURSE ---
T 99.8. BP 79/42, RR 24. O2 Sat 95% on O2 t [address] Barron notified of BP reading. New order obtained to administer 1 L NS bolus. 1 L NS bolus started per MD order.
[2022-06-24] MEDS: 0.9 % Sodium Chloride 1,000 ML 999 ML IV (02:33)
[2022-06-24] MEDS: Lactated Ringers 1,000 ML 100 ML IVCONT (03:44)
--- NOTE | 2022-06-24 04:05 | PC.NURSE ---
T 98.7. SBP around 90/DBP in 50's. P 80-90. O2 Sat 96-98% on O2 at [address] Barron updated, per MD continue LR at 100 mL/hr, monitor BP.
[2022-06-24] MEDS: Omeprazole 40 MG CAPSULE.DR PO (06:32)
[2022-06-24 06:50] LABS: MANUAL DIFF FLAG NO
[2022-06-24 06:52] LABS: Basophils Percent Auto 0.2 % (0-2); Eosinophils Absolute Auto 0.1 X10*3/uL (0.0-0.4); Eosinophils Percent Auto 1.1 % (0-4); Hemoglobin 11.3 g/dl (14.0-18.0); Imm Gran Abs Auto 0.06 X10*3/uL (0.00-0.03); Imm Gran Pct Auto 0.7 % (0.0-0.4); Lymphocytes Absolute Auto 1.4 X10*3/uL (1.2-4.9); Lymphocytes Percent Auto 16.5 % (20-40); Mean Corpuscular HGB Conc 35.3 g/dl (31.0-36.0); Mean Corpuscular Hemoglobin 30.9 pg (27.0-33.0); Mean Corpuscular Volume 87.4 fL (80.0-98.0); Mean Platelet Volume 9.4 fL (9.4-12.4); Monocytes Absolute Auto 0.9 X10*3/uL (0.1-1.2); Monocytes Percent Auto 11.2 % (2-11); Neutrophils Absolute Auto 5.8 x10*3/uL (2.0-8.3); Neutrophils Percent Auto 70.3 % (45-73); Platelet Count 127 X10*3/uL (160-400); Red Blood Count 3.66 X10*6/uL (4.60-5.80); Red Cell Distribution Width 12.8 % (11.0-16.0); White Blood Count 8.2 X10*3/uL (4.8-10.8)
[2022-06-24 07:33] LABS: Glucose, Whole Blood 90 mg/dL (60-115)
[2022-06-24 08:42] LABS: Glucose, Whole Blood 112 mg/dL (60-115)
[2022-06-24] MEDS: Gabapentin 300 MG CAPSULE PO ×3 (09:03→20:17)
[2022-06-24] MEDS: DULoxetine HCl 30 MG CAPSULE.DR PO (09:03)
[2022-06-24] MEDS: FLUoxetine HCl 20 MG CAPSULE 40 MG PO (09:03)
[2022-06-24] MEDS: Divalproex Sodium 500 MG TABLET.DR 1000 MG PO (09:03)
[2022-06-24] MEDS: Insulin Glargine,Hum.rec.anlog 100 UNIT/ML 10 ML VIAL 25 UNIT SUBCUT (09:04)
[2022-06-24] MEDS: Doxycycline Hyclate 100 MG in 0.9 % Sodium Chloride 250 ML 166.67 MG IV ×2 (09:04→20:17)
--- NOTE | 2022-06-24 10:37 | P.PNIM_ITS ---
Subjective Subjective Date of Service: 06/24/22 Interval History: cc: fall interval history:feeling better today, denies sob Cardiovascular Cardiovascular: Reports no additional cardiovascular complaints Respiratory Respiratory: Reports no additional respiratory complaints Physical Exam Vital Signs: Vital Signs: Last Vital Signs Temp 98.6 F 06/24/22 08:00 Pulse 82 06/24/22 08:00 Resp 16 06/24/22 08:00 BP 135/74 06/24/22 08:00 Pulse Ox 96 06/24/22 08:00 O2 Del Method 06/24/22 08:00 O2 Flow Rate 2 06/24/22 07:45 BMI result Body Mass Index 26.7 General: AO X 3, no acute distress Resp: CTA bilateral, no accessory muscles used CVS: S1,S2,RRR GI: soft, non tender, non distended Neuro: motor grossly intact, alert, resting tremor, improves with activity, some rigidity Psych: appropriate affect, appropriate insight Objective Data Active Medications Acetaminophen (Acetaminophen 325 Mg Tablet) 650 mg PO Q6H PRN PRN Reason: Pain, Mild, fever Last Admin: 06/24/22 00:21 Dose: 650 mg Documented By: CHAITANYA Atorvastatin Calcium (Atorvastatin Calcium 80 Mg Tablet) 80 mg PO BEDTIME [facility] Last Admin: 06/23/22 22:19 Dose: 80 mg Documented By: FRANCISCO J Benztropine Mesylate (Benztropine Mesylate 0.5 Mg Tablet) 0.5 mg PO DAILY@1800 [facility] Last Admin: 06/23/22 18:02 Dose: 0.5 mg Documented By: JUN Divalproex Sodium (Divalproex Sodium 500 Mg Tablet.) 1,000 mg PO DAILY [facility] Last Admin: 06/24/22 09:03 Dose: 1,000 mg Documented By: TENISHA Docusate Sodium (Docusate Sodium 100 Mg Capsule) 100 mg PO BID PRN PRN Reason: Constipation Duloxetine HCl (Duloxetine Hcl 30 Mg Capsule.) 30 mg PO DAILY [facility] Last Admin: 06/24/22 09:03 Dose: 30 mg Documented By: TENISHA Enoxaparin Sodium (Enoxaparin Sodium 40 Mg/0.4 Ml Syringe) 40 mg SUBCUT Q24H [facility] Last Admin: 06/23/22 14:58 Dose: 40 mg Documented By: FRANCISCO J Fluoxetine HCl (Fluoxetine Hcl 20 Mg Capsule) 40 mg PO BID [facility] Last Admin: 06/24/22 09:03 Dose: 40 mg Documented By: TENISHA Gabapentin (Gabapentin 300 Mg Capsule) 300 mg PO TID [facility] Last Admin: 06/24/22 09:03 Dose: 300 mg Documented By: TENISHA Ceftriaxone Sodium 1 gm/ (Sodium Chloride) 50 mls @ 100 mls/hr IV Q24H [facility] Doxycycline Hyclate 100 mg/ (Sodium Chloride) 250 mls @ 166.67 mls/hr IV Q12H [facility] Last Admin: 06/24/22 09:04 Dose: 166.67 mls/hr Documented By: TENISHA Lactated Ringer's (Lr) 1,000 mls @ 100 mls/hr IVCONT .Q10H [facility] Last Admin: 06/24/22 03:44 Dose: 100 mls/hr Documented By: CHAITANYA Insulin Glargine (Insulin Glargine,Hum.Rec.Anlog 100 Unit/Ml 10 Ml Vial) 25 unit SUBCUT DAILY [facility] Last Admin: 06/24/22 09:04 Dose: 25 unit Documented By: TENISHA Metoprolol Tartrate (Metoprolol Tartrate 50 Mg Tablet) 50 mg PO BID [facility]; Protocol Last Admin: 06/23/22 22:23 Dose: 50 mg Documented By: FRANCISCO J Omeprazole (Omeprazole 40 Mg Capsule.Dr) 40 mg PO DAILY@0630 [facility] Last Admin: 06/24/22 06:32 Dose: 40 mg Documented By: CHAITANYA Ondansetron HCl (Ondansetron Hcl 4 Mg/2 Ml Vial) 4 mg IVPUSH Q8H PRN PRN Reason: Nausea and Vomiting Pharmacy Consult (Consult Rx Perform Med Rec) 1 each MISCELLANE ONCE PRN PRN Reason: Consult order Primidone (Primidone 50 Mg Tablet) 50 mg PO DAILY [facility] Quetiapine Fumarate (Quetiapine Fumarate 200 Mg Tablet) 200 mg PO BEDTIME [facility] Last Admin: 06/23/22 22:23 Dose: 200 mg Documented By: FRANCISCO J Sodium Chloride (0.9 % Sodium Chloride Flush 3 Ml Syringe) 3 ml IVFLUSH QSHIFT [facility] Last Admin: 06/24/22 08:47 Dose: Not Given Documented By: TENISHA Non-Admin Reason: IV Running Trazodone HCl (Trazodone Hcl 100 Mg Tablet) 100 mg PO BEDTIME [facility] Last Admin: 06/23/22 22:19 Dose: 100 mg Documented By: FRANCISCO J Ziprasidone (Ziprasidone 60 Mg Capsule) 60 mg PO BEDTIME [facility] Last Admin: 06/23/22 22:23 Dose: 60 mg Documented By: FRANCISCO J Labs CBC & Chem 7: 06/24/22 06:47 06/23/22 10:44 Labs: Laboratory Results - last 24 hr 06/23/22 06/23/22 06/23/22 10:44 10:44 10:44 MCV 86.7 MCH 29.9 MCHC 34.4 RDW 12.3 Plt Count 155 L MPV 9.4 Immature Gran % (Auto) 0.2 Neut % (Auto) 80.2 H Lymph % (Auto) 9.6 L [place] % (Auto) 7.7 Eos % (Auto) 1.9 Baso % (Auto) 0.4 Lymph # (Auto) 0.8 L [place] # (Auto) 0.6 Eos # (Auto) 0.2 Baso # (Auto) 0.0 Abs Immat Gran (auto) 0.02 Absolute Neuts (auto) 6.7 Absolute Nucleated RBC 0.000 Nucleated RBC % (auto) 0.0 Anion Gap 13 Estim Creat Clear Calc 70.8 Estimated GFR > 60 POC Glucose Random Glucose 165 H Lactic Acid Calcium 9.8 Magnesium 1.6 Total Bilirubin 0.5 AST 21 ALT 33 Alkaline Phosphatase 76 Troponin I High Sens < 3.5 Total Protein 7.4 Albumin 4.2 Urine Color Urine Appearance Urine pH Ur Specific [place] Urine Protein Urine Glucose (UA) Urine Ketones Urine Blood Urine Nitrite Ur Leukocyte Esterase COVID-19 ([facility]) COVID-19 Clin Com 06/23/22 06/23/22 06/23/22 12:26 12:26 12:55 MCV MCH MCHC RDW Plt Count MPV Immature Gran % (Auto) Neut % (Auto) Lymph % (Auto) [place] % (Auto) Eos % (Auto) Baso % (Auto) Lymph # (Auto) [place] # (Auto) Eos # (Auto) Baso # (Auto) Abs Immat Gran (auto) Absolute Neuts (auto) Absolute Nucleated RBC Nucleated RBC % (auto) Anion Gap Estim Creat Clear Calc Estimated GFR POC Glucose Random Glucose Lactic Acid 1.5 Calcium Magnesium Total Bilirubin AST ALT Alkaline Phosphatase Troponin I High Sens Total Protein Albumin Urine Color Yellow Urine Appearance Clear Urine pH 8.5 Ur Specific [place] 1.015 Urine Protein Negative Urine Glucose (UA) 500 H Urine Ketones Negative Urine Blood Negative Urine Nitrite Negative Ur Leukocyte Esterase Negative COVID-19 (JERO) Negative COVID-19 Clin Com See Note 06/24/22 06/24/22 06/24/22 06:47 07:25 08:38 MCV 87.4 MCH 30.9 MCHC 35.3 RDW 12.8 Plt Count 127 L MPV 9.4 Immature Gran % (Auto) 0.7 H Neut % (Auto) 70.3 Lymph % (Auto) 16.5 L [place] % (Auto) 11.2 H Eos % (Auto) 1.1 Baso % (Auto) 0.2 Lymph # (Auto) 1.4 [place] # (Auto) 0.9 Eos # (Auto) 0.1 Baso # (Auto) 0.0 Abs Immat Gran (auto) 0.06 H Absolute Neuts (auto) 5.8 Absolute Nucleated RBC 0.000 Nucleated RBC % (auto) 0.0 Anion Gap Estim Creat Clear Calc Estimated GFR POC Glucose 90 112 Random Glucose Lactic Acid Calcium Magnesium Total Bilirubin AST ALT Alkaline Phosphatase Troponin I High Sens Total Protein Albumin Urine Color Urine Appearance Urine pH Ur Specific [place] Urine Protein Urine Glucose (UA) Urine Ketones Urine Blood Urine Nitrite Ur Leukocyte Esterase COVID-19 (JERO) COVID-19 Clin Com Assessment and Plan (1) Sepsis: Status: Acute Plan 57M with PMH of chronic back pain, schizoaffective disorder, HTN, DM, presented with fall, fevers Sepsis present on admission secondary to suspected aspiration pneumonia Continue ceftriaxone and doxycycline Follow-up cultures Recurrent falls Possibly due to extrapyramidal symptoms from antipsychotics Follow-up psychiatry, PT Diabetes Continue insulin, monitor point of care Schizoaffective disorder Continuing antipsychotics and mood stabilizers for now, follow-up psychiatry Chronic low back pain Continue Tylenol and gabapentin Hyperlipidemia Continue statin DVT prophylaxis with Lovenox Full code reason for continued hospitalization: awaiting defervenscence Quality Stroke Does the patient have a stroke diagnosis?: No VTE Prior VTE?: No VTE Risk Level:: Medical - moderate - high VTE Device Contraindication: Treatment Not Indicated VTE Drug Contraindication: N/A - Med Ordered
[2022-06-24] MEDS: Primidone 50 MG TABLET PO (10:39)
[2022-06-24 11:15] LABS: Glucose, Whole Blood 148 mg/dL (60-115)
[2022-06-24] MEDS: cefTRIAXone sodium 1 GM in 0.9 % Sodium Chloride 50 ML IV (12:03)
--- NOTE | 2022-06-24 13:57 | MHC.CM.PN ---
CALL FROM PATIENT'S ARTIFICIAL MARBLE WORKER FOR [facility] ([facility]), GAVINO ([phone]) GAVINO STATES THAT PACE OFFERS P.T., O.T., AND RN SKILLS IN THE HOME IF NEEDED. IF PATIENT IS TO DC TO SNF, THEY ARE CONTRACTED WITH [facility], THE [address] [place] [address] AND [facility]. GAVINO WILL CALL TOMORROW FOR ANOTHER UPDATE. THERE IS A 18/04 CONTACT NUMBER FOR CARE PROVIDERS - [phone]
[2022-06-24] MEDS: Enoxaparin Sodium 40 MG/0.4 ML SYRINGE SUBCUT (15:13)
[2022-06-24] MEDS: 0.9 % Sodium Chloride Flush 3 ML SYRINGE IVFLUSH ×2 (15:14→20:17)
[2022-06-24 15:36] LABS: Glucose, Whole Blood 103 mg/dL (60-115)
--- NOTE | 2022-06-24 16:27 | PM.PSYCN ---
History of Present Illness Date of Service: 06/24/2022 Chief Complaint: Pneumonia, sepsis Reason for Consult: medication Requesting physician: Kely Waggoner Sources of Information: patient interviewed and chart reviewed HPI Narrative: 57M with PMH of chronic back pain, schizoaffective disorder, HTN, DM, presented with fall, fevers. Sepsis present on admission secondary to suspected aspiration pneumonia. Started on ceftriaxone and doxycycline. Hx of recurrent falls, consult placed to assess if psychotropic medications are contributing to mechanical instability. Low suspicion for EPS, as pt is on low doses of antypical antipsychotics. He has parkinsonian tremors, however sister reports he has had tremors for years and she is unsure if it started with medication. R/o if tremor is related to depakote. I spoke with pt's RN, she reports he has had a sitter and close observation due to his level of confusion, presents as significant fall risk. He has been somnolent, fatigued. I spoke with pt's sister who is at his bedsite. She reports at baseline pt is not oriented to the date or situation, needs prompts and reminders for ADLs. She denies that pt has issues with his mood. Pt's sister is his caregiver and she administers medications. Says when he drinks his meds he's calm. At baseline he is usually more energetic but lately he has been sleeping in the day. Pt and his sister recently moved to [place] in April 2021, as his son had brain surgery and he wanted to be close to him. Pt's sister says he has a hx of depression but he now lives with his son and has a service dog, which help. He was diagnosed with bipolar and schizophrenia years ago when he was in [place]. She describes him as a problematic child and suspects his issues started earlier but went undiagnosed. He sometimes hallucinates but there are no behavioral concerns. Pt's sister reports she is concerned with polypharm, as pt has been falling all over, although she says this is not a new issue, he has been falling for the longest now. His memory issues are also not acute and there is a family hx of Alzheimer's (pt's mother). She denies benefit on cogentin or primidone on pt's parkinsonian tremor, says his shaking started years ago when he lived in [place]. She is unable to recall all past med trials. Medical Evaluation Reviewed: Yes [facility] Medical History Bipolar 1 disorder Chronic low back pain Depression Schizophrenia Tremor of both hands Type 2 diabetes mellitus Diagnostics Vital Signs (24Hr): Vital Signs - 24 hr 06/23/22 18:44 06/23/22 20:54 06/23/22 23:14 Temperature 99.4 F 101.0 F H Pulse Rate 98 103 H Respiratory Rate 14 13 Blood Pressure 160/98 H 140/94 H Pulse Oximetry 95 95 Oxygen Delivery Method Room Air Room Air Oxygen Flow Rate 06/24/22 00:15 06/24/22 02:28 06/24/22 02:35 Temperature 100.4 F 99.8 F Pulse Rate 96 88 86 Respiratory Rate 15 24 H 16 Blood Pressure 106/61 79/42 L 81/45 L Pulse Oximetry 96 95 94 Oxygen Delivery Method Room Air Nasal Cannula Nasal Cannula Oxygen Flow Rate 2 2 06/24/22 02:44 06/24/22 02:55 06/24/22 03:06 Temperature Pulse Rate 85 86 85 Respiratory Rate 24 H 23 H 23 H Blood Pressure 90/53 L 99/58 L 103/59 L Pulse Oximetry 95 96 96 Oxygen Delivery Method Nasal Cannula Nasal Cannula Nasal Cannula Oxygen Flow Rate 2 2 2 06/24/22 03:21 06/24/22 03:59 06/24/22 06:16 Temperature 98.7 F 99.0 F Pulse Rate 86 83 86 Respiratory Rate 20 22 H 21 H Blood Pressure 107/61 92/7 L 110/61 Pulse Oximetry 98 97 97 Oxygen Delivery Method Nasal Cannula Nasal Cannula Nasal Cannula Oxygen Flow Rate 2 2 2 06/24/22 06:52 06/24/22 07:45 06/24/22 08:00 Temperature 98.9 F 98.6 F Pulse Rate 82 84 82 Respiratory Rate 15 16 16 Blood Pressure 109/65 103/71 135/74 Pulse Oximetry 98 99 96 Oxygen Delivery Method Nasal Cannula Nasal Cannula Room Air Oxygen Flow Rate 2 2 06/24/22 10:53 06/24/22 12:00 06/24/22 15:23 Temperature 97.2 F 97 F 97.1 F Pulse Rate 97 101 H Respiratory Rate 20 20 Blood Pressure 137/82 146/76 H Pulse Oximetry 94 96 Oxygen Delivery Method Room Air Room Air Oxygen Flow Rate BMI result Body Mass Index 26.7 Labs Results: 06/25/22 05:52 06/25/22 05:52 Labs: Laboratory Results - last 48 hr 06/23/22 06/23/22 06/23/22 10:44 10:44 10:44 WBC 8.3 RBC 4.52 L Hgb 13.5 L Hct 39.2 L MCV 86.7 MCH 29.9 MCHC 34.4 RDW 12.3 Plt Count 155 L MPV 9.4 Immature Gran % (Auto) 0.2 Neut % (Auto) 80.2 H Lymph % (Auto) 9.6 L [place] % (Auto) 7.7 Eos % (Auto) 1.9 Baso % (Auto) 0.4 Lymph # (Auto) 0.8 L [place] # (Auto) 0.6 Eos # (Auto) 0.2 Baso # (Auto) 0.0 Abs Immat Gran (auto) 0.02 Absolute Neuts (auto) 6.7 Absolute Nucleated RBC 0.000 Nucleated RBC % (auto) 0.0 Sodium 140 Potassium 3.9 Chloride 99 Carbon Dioxide 32 H Anion Gap 13 BUN 9 Creatinine 1.10 Estim Creat Clear Calc 70.8 Estimated GFR > 60 POC Glucose Random Glucose 165 H Lactic Acid Calcium 9.8 Magnesium 1.6 Total Bilirubin 0.5 AST 21 ALT 33 Alkaline Phosphatase 76 Troponin I High Sens < 3.5 Total Protein 7.4 Albumin 4.2 Urine Color Urine Appearance Urine pH Ur Specific [place] Urine Protein Urine Glucose (UA) Urine Ketones Urine Blood Urine Nitrite Ur Leukocyte Esterase COVID-19 (JERO) COVID-19 Clin Com 06/23/22 06/23/22 06/23/22 12:26 12:26 12:55 WBC RBC Hgb Hct MCV MCH MCHC RDW Plt Count MPV Immature Gran % (Auto) Neut % (Auto) Lymph % (Auto) Sevier % (Auto) Eos % (Auto) Baso % (Auto) Lymph # (Auto) [place]vier # (Auto) Eos # (Auto) Baso # (Auto) Abs Immat Gran (auto) Absolute Neuts (auto) Absolute Nucleated RBC Nucleated RBC % (auto) Sodium Potassium Chloride Carbon Dioxide Anion Gap BUN Creatinine Estim Creat Clear Calc Estimated GFR POC Glucose Random Glucose Lactic Acid 1.5 Calcium Magnesium Total Bilirubin AST ALT Alkaline Phosphatase Troponin I High Sens Total Protein Albumin Urine Color Yellow Urine Appearance Clear Urine pH 8.5 Ur Specific [place] 1.015 Urine Protein Negative Urine Glucose (UA) 500 H Urine Ketones Negative Urine Blood Negative Urine Nitrite Negative Ur Leukocyte Esterase Negative COVID-19 (JERO) Negative COVID-19 Clin Com See Note 06/24/22 06/24/22 06/24/22 06:47 07:25 08:38 WBC 8.2 RBC 3.66 L Hgb 11.3 L Hct 32.0 L MCV 87.4 MCH 30.9 MCHC 35.3 RDW 12.8 Plt Count 127 L MPV 9.4 Immature Gran % (Auto) 0.7 H Neut % (Auto) 70.3 Lymph % (Auto) 16.5 L [place] % (Auto) 11.2 H Eos % (Auto) 1.1 Baso % (Auto) 0.2 Lymph # (Auto) 1.4 [place]vier # (Auto) 0.9 Eos # (Auto) 0.1 Baso # (Auto) 0.0 Abs Immat Gran (auto) 0.06 H Absolute Neuts (auto) 5.8 Absolute Nucleated RBC 0.000 Nucleated RBC % (auto) 0.0 Sodium Potassium Chloride Carbon Dioxide Anion Gap BUN Creatinine Estim Creat Clear Calc Estimated GFR POC Glucose 90 112 Random Glucose Lactic Acid Calcium Magnesium Total Bilirubin AST ALT Alkaline Phosphatase Troponin I High Sens Total Protein Albumin Urine Color Urine Appearance Urine pH Ur Specific [place] Urine Protein Urine Glucose (UA) Urine Ketones Urine Blood Urine Nitrite Ur Leukocyte Esterase COVID-19 (JERO) COVID-19 Clin Com 06/24/22 06/24/22 11:11 15:33 WBC RBC Hgb Hct MCV MCH MCHC RDW Plt Count MPV Immature Gran % (Auto) Neut % (Auto) Lymph % (Auto) Sevier % (Auto) Eos % (Auto) Baso % (Auto) Lymph # (Auto) [place] # (Auto) Eos # (Auto) Baso # (Auto) Abs Immat Gran (auto) Absolute Neuts (auto) Absolute Nucleated RBC Nucleated RBC % (auto) Sodium Potassium Chloride Carbon Dioxide Anion Gap BUN Creatinine Estim Creat Clear Calc Estimated GFR POC Glucose 148 H 103 Random Glucose Lactic Acid Calcium Magnesium Total Bilirubin AST ALT Alkaline Phosphatase Troponin I High Sens Total Protein Albumin Urine Color Urine Appearance Urine pH Ur Specific [place] Urine Protein Urine Glucose (UA) Urine Ketones Urine Blood Urine Nitrite Ur Leukocyte Esterase COVID-19 (JERO) COVID-19 Clin Com Imaging Radiology Impressions: ITS Impressions Head CT 06/23/22 10:38 IMPRESSION: No acute intracranial pathology. Lumbar Spine CT 06/23/22 10:38 IMPRESSION: -No acute bony abnormality. No visible fracture, spondylolisthesis, or spondylolysis. -Superior endplate depression L1, similar to prior CT 01/26/2022. No paraspinal soft tissue swelling or retroperitoneal hematoma. Chest X-Ray 06/23/22 12:04 IMPRESSION: Low lung volumes. Question atelectasis or small infiltrate at the left lung base. Mental Status Exam Mental Status Exam Narrative: Pt is asleep, laying down in bed under the covers. In hospital attire, normal body habitus. He woke up to eat dinner and was observed to have tremors, confusion, needed assistance with eating. Insight/ Judgment poor. Medications Medications Current Medications Acetaminophen (Acetaminophen 325 Mg Tablet) 650 mg PO Q6H PRN PRN Reason: Pain, Mild, fever Last Admin: 06/24/22 00:21 Dose: 650 mg Atorvastatin Calcium (Atorvastatin Calcium 80 Mg Tablet) 80 mg PO BEDTIME [facility] Last Admin: 06/23/22 22:19 Dose: 80 mg Benztropine Mesylate (Benztropine Mesylate 0.5 Mg Tablet) 0.5 mg PO DAILY@1800 [facility] Last Admin: 06/23/22 18:02 Dose: 0.5 mg Divalproex Sodium (Divalproex Sodium 500 Mg Tablet.) 1,000 mg PO DAILY [facility] Last Admin: 06/24/22 09:03 Dose: 1,000 mg Docusate Sodium (Docusate Sodium 100 Mg Capsule) 100 mg PO BID PRN PRN Reason: Constipation Duloxetine HCl (Duloxetine Hcl 30 Mg Capsule.) 30 mg PO DAILY [facility] Last Admin: 06/24/22 09:03 Dose: 30 mg Enoxaparin Sodium (Enoxaparin Sodium 40 Mg/0.4 Ml Syringe) 40 mg SUBCUT Q24H [facility] Last Admin: 06/24/22 15:13 Dose: 40 mg Fluoxetine HCl (Fluoxetine Hcl 20 Mg Capsule) 40 mg PO BID [facility] Last Admin: 06/24/22 09:03 Dose: 40 mg Gabapentin (Gabapentin 300 Mg Capsule) 300 mg PO TID [facility] Last Admin: 06/24/22 15:13 Dose: 300 mg Ceftriaxone Sodium 1 gm/ (Sodium Chloride) 50 mls @ 100 mls/hr IV Q24H [facility] Last Infusion: 06/24/22 12:48 Dose: Infused Doxycycline Hyclate 100 mg/ (Sodium Chloride) 250 mls @ 166.67 mls/hr IV Q12H [facility] Last Infusion: 06/24/22 11:25 Dose: Infused Insulin Glargine (Insulin Glargine,Hum.Rec.Anlog 100 Unit/Ml 10 Ml Vial) 25 unit SUBCUT DAILY [facility] Last Admin: 06/24/22 09:04 Dose: 25 unit Metoprolol Tartrate (Metoprolol Tartrate 50 Mg Tablet) 50 mg PO BID [facility]; Protocol Last Admin: 06/23/22 22:23 Dose: 50 mg Omeprazole (Omeprazole 40 Mg Capsule.Dr) 40 mg PO DAILY@0630 [facility] Last Admin: 06/24/22 06:32 Dose: 40 mg Ondansetron HCl (Ondansetron Hcl 4 Mg/2 Ml Vial) 4 mg IVPUSH Q8H PRN PRN Reason: Nausea and Vomiting Pharmacy Consult (Consult Rx Perform Med Rec) 1 each MISCELLANE ONCE PRN PRN Reason: Consult order Primidone (Primidone 50 Mg Tablet) 50 mg PO DAILY [facility] Last Admin: 06/24/22 10:39 Dose: 50 mg Quetiapine Fumarate (Quetiapine Fumarate 200 Mg Tablet) 200 mg PO BEDTIME [facility] Last Admin: 06/23/22 22:23 Dose: 200 mg Sodium Chloride (0.9 % Sodium Chloride Flush 3 Ml Syringe) 3 ml IVFLUSH QSHIFT [facility] Last Admin: 06/24/22 15:14 Dose: 3 ml Trazodone HCl (Trazodone Hcl 100 Mg Tablet) 100 mg PO BEDTIME [facility] Last Admin: 06/23/22 22:19 Dose: 100 mg Ziprasidone (Ziprasidone 60 Mg Capsule) 60 mg PO BEDTIME [facility] Last Admin: 06/23/22 22:23 Dose: 60 mg Allergies Allergies Allergy/AdvReac Type Severity Reaction Status Date / Time No Known Allergies Allergy Mild NONE Unverified 06/12/20 15:23 Assessment & Plan Assessment & Plan (1) Schizoaffective disorder, bipolar type: Status: Acute Code(s): F25.0 - Schizoaffective disorder, bipolar type (2) Sepsis: Status: Acute Code(s): A41.9 - Sepsis, unspecified organism Plan Plan: Will d/c fluoxetine, as pt's sister says he is not supposed to be on this. Will obtain trough VPA level (63). Will change depakote ER to depakote sprinkles 375 BID to rule out contributing sedation, tremors. Will discontinue cogentin and primidone, as sister denies benefit and wants him off these meds and may contribute to anticholinergic burden, will trial propranolol 20 mg BID to rule out depakote related tremors. Will lower seroquel to 100 mg QHS, as sister reports oversedation in the morning and he is already on ziprasidone for psychosis and trazodone for sleep. May consider discontinuing. Psychiatry will follow up to monitor med changes for benefit. Thank you for this consultation. If you have any questions or concerns, please do not hesitate to contact psychiatry service. I spent minutes with the patient and/or on the patient floor today, greater than?50% of which was spent counseling/coordinating care. Patient educated on: diagnosis, medication risk/benefits and therapeutic strategies
[2022-06-24 19:36] LABS: Glucose, Whole Blood 177 mg/dL (60-115)
[2022-06-24] MEDS: Ziprasidone 60 MG CAPSULE PO (20:17)
[2022-06-24] MEDS: QUEtiapine Fumarate 100 MG TABLET PO (20:17)
[2022-06-24] MEDS: Atorvastatin Calcium 80 MG TABLET PO (20:17)
[2022-06-24] MEDS: traZODone HCL 100 MG TABLET PO (20:17)
[2022-06-24] MEDS: Propranolol HCL 20 MG TABLET PO (20:27)
[2022-06-25 03:11] VITALS: BP 117/63; PULSE 96; RESP 20; TEMP 37.4; O2SAT 94
[2022-06-25] MEDS: Omeprazole 40 MG CAPSULE.DR PO (05:43)
[2022-06-25 07:06] VITALS: BP 129/78; PULSE 96; RESP 20; TEMP 36.1; O2SAT 95
[2022-06-25 07:11] LABS: Glucose, Whole Blood 130 mg/dL (60-115)
[2022-06-25 07:18] LABS: Hematocrit 34.1 % (42.0-52.0); Hemoglobin 11.9 g/dl (14.0-18.0); Mean Corpuscular HGB Conc 34.9 g/dl (31.0-36.0); Mean Corpuscular Hemoglobin 30.4 pg (27.0-33.0); Mean Corpuscular Volume 87.2 fL (80.0-98.0); Mean Platelet Volume 10.3 fL (9.4-12.4); Platelet Count 148 X10*3/uL (160-400); Red Blood Count 3.91 X10*6/uL (4.60-5.80); White Blood Count 7.5 X10*3/uL (4.8-10.8)
[2022-06-25 07:36] LABS: Anion Gap 19 (12-20); Blood Urea Nitrogen 10 mg/dL (9-16); Calcium 8.6 mg/dL (8.4-10.2); Carbon Dioxide 20 mmol/L (22-29); Chloride 105 mmol/L (96-108); Creatinine Clr Calc Pharmacy 77.9; Estimated Glomerular Filt Rate > 60; Glucose Fasting 114 mg/dL (60-99); Magnesium 1.6 mg/dL (1.6-2.6); Potassium 3.6 mmol/L (3.3-5.1); Sodium 140 mmol/L (135-145)
[2022-06-25] MEDS: 0.9 % Sodium Chloride Flush 3 ML SYRINGE IVFLUSH (09:03)
[2022-06-25] MEDS: Insulin Glargine,Hum.rec.anlog 100 UNIT/ML 10 ML VIAL 25 UNIT SUBCUT (09:03)
[2022-06-25] MEDS: Doxycycline Hyclate 100 MG in 0.9 % Sodium Chloride 250 ML 166.67 MG IV (09:03)
[2022-06-25] MEDS: Propranolol HCL 20 MG TABLET PO (09:04)
[2022-06-25] MEDS: Divalproex Sodium Sprinkles 125 MG CAP.DR.SPR 375 MG PO (09:04)
[2022-06-25] MEDS: Gabapentin 300 MG CAPSULE PO ×2 (09:04→14:13)
[2022-06-25] MEDS: DULoxetine HCl 30 MG CAPSULE.DR PO (09:04)
[2022-06-25 11:13] VITALS: BP 122/75; PULSE 87; RESP 18; TEMP 36.1; O2SAT 96
[2022-06-25 11:23] VITALS: BP 122/75; PULSE 87; O2SAT 96
[2022-06-25 11:25] LABS: Glucose, Whole Blood 197 mg/dL (60-115)
--- NOTE | 2022-06-25 11:52 | P.DS_ITS ---
DS: Providers Provider Date of Service: 06/25/22 Date of admission: 06/23/22 14:04 Primary care physician: Unknown Physician Consults: 06/23/22 15:31 Consult to Psychiatry Routine Consulting Provider: Psych Covering Reason for consultation: medication review- pt having multiple falls/ weakness r/t psych drugs DS: Diagnosis Discharge Diagnosis (1) Schizoaffective disorder, bipolar type: Status: Acute (2) Sepsis: Status: Acute DS: Summary Hospital Course Hospital Course: from initial hpi: Patient is a 57-year-old male with a past medical history of chronic back pain, bipolar disorder, schizophrenia, hypertension, type 2 diabetes, and chronic tremor presented to the ED this morning after sustaining a fall because his legs gave out . The patient is a poor historian and much of the history is obtained from his sister with whom the patient lives.? His sister, Moriah, states that the patient has had multiple recurrent falls related to his psyc hiatric medications making him on stable when walking as well as groggy.? He does ambulate with a cane and occasionally a walker at baseline.? On arrival, she stated she was uncertain of whether had trace occurred.? The patient does deny any headaches, dizziness, lightheadedness, blurred vision, diplopia, neck pain, palpitations, shortness of breath, chest pain, nausea, vomiting, abdominal pain, urinary symptoms.? He is reporting low back pain but this is noted to be chronic.? Head CT negative for any acute intracranial abnormality.? CT of the lumbar spine without any acute bony abnormality including fracture, spondylolisthesis, or spondylosis.? There is a carrier endplate depression at L1 that has been unchanged without any paraspinal soft tissue swelling or retroperitoneal hematoma.? Chest x-ray with low lung volumes as well as question of atelectasis versus small infiltrate at the left lung base.? Patient noted to be febrile at 103.1, tachycardia 104, and tachypneic at 26. no hypotension or hypoxia. No leukocytosis. Lactic acid 1.5. Renal function normal. He denies fevers at home, chills, cough, sob, wheezing.? No chronic lung disease.? Patient denies any smoking.? Patient to be admitted for left lower lobe pneumonia with sepsis as well as recurrent falls. hospital course: Patient was admitted for sepsis secondary to likely aspiration pneumonia in the setting of extrapyramidal symptoms likely from antipsychotics which patient is on for schizoaffective disorder. He was given ceftriaxone doxycycline, sepsis resolved, he will be discharged on 7 more days of Augmentin. He was seen by Psychiatry who made changes to patient's psych medications, please see med reconciliation for full list of changes. For his diabetes was continued on insulin. For his chronic low back pain he will continue Tylenol gabapentin. For his hyperlipidemia is continue on statin. Patient appears back to baseline will be discharged home. Time Spent with Patient Time attestation: Total time spent providing and/or coordinating discharge services: Discharge coordination time: Greater than 30 minutes Quality: Safe Use of Opioids Does Pt have an Active Cancer Diagnosis on the Problem List?: No Quality: Stroke Does the patient have a stroke diagnosis?: No Physical Exam Vital Signs: Vital Signs: Last Vital Signs Temp 97 F 06/25/22 11:13 Pulse 87 06/25/22 11:23 Resp 18 06/25/22 11:13 BP 122/75 06/25/22 11:23 Pulse Ox 96 06/25/22 11:23 O2 Del Method 06/25/22 11:13 O2 Flow Rate 2 06/24/22 07:45 BMI result Body Mass Index 26.7 General: AO X 3, no acute distress Resp: CTA bilateral, no accessory muscles used CVS: S1,S2,RRR GI: soft, non tender, non distended Neuro: motor grossly intact, alert, resting tremor, improves with activity, some rigidity Psych: appropriate affect, appropriate insight DS: Data Data Completed and Pending Labs on day of discharge: Laboratory Results - last 24 hr 06/24/22 06/24/22 06/24/22 15:33 19:32 21:08 WBC RBC Hgb Hct MCV MCH MCHC RDW Plt Count MPV Absolute Nucleated RBC Nucleated RBC % (auto) Sodium Potassium Chloride Carbon Dioxide Anion Gap BUN Creatinine Estim Creat Clear Calc Estimated GFR POC Glucose 103 177 H Fasting Glucose Calcium Magnesium Valproic Acid 63.0 06/25/22 06/25/22 06/25/22 05:52 05:52 07:05 WBC 7.5 RBC 3.91 L Hgb 11.9 L Hct 34.1 L MCV 87.2 MCH 30.4 MCHC 34.9 RDW 13.0 Plt Count 148 L MPV 10.3 Absolute Nucleated RBC 0.000 Nucleated RBC % (auto) 0.0 Sodium 140 Potassium 3.6 Chloride 105 Carbon Dioxide 20 L Anion Gap 19 BUN 10 Creatinine 1.00 Estim Creat Clear Calc 77.9 Estimated GFR > 60 POC Glucose 130 H Fasting Glucose 114 H Calcium 8.6 D Magnesium 1.6 Valproic Acid 06/25/22 11:21 WBC RBC Hgb Hct MCV MCH MCHC RDW Plt Count MPV Absolute Nucleated RBC Nucleated RBC % (auto) Sodium Potassium Chloride Carbon Dioxide Anion Gap BUN Creatinine Estim Creat Clear Calc Estimated GFR POC Glucose 197 H Fasting Glucose Calcium Magnesium Valproic Acid Preliminary micro results at discharge 06/23/22 12:29 Blood Culture - Preliminary Blood - Venous No growth after 24 hours. 06/23/22 12:26 Blood Culture - Preliminary Blood - Venous No growth after 24 hours. Discharge Plan Discharge Anticipated Discharge Date/Time: 06/25/22 11:46 Patient Disposition: Home, Self-Care Discharge Diagnosis: aspiration, sepsis Referrals: Physician,Unknown J [Primary Care Provider] - 1 Week Discharge Medications: New amoxicillin-pot clavulanate 875-125 mg tablet 1 tab PO Q12H Qty: 14 0RF quetiapine 100 mg Tablet 100 mg PO BEDTIME Qty: 30 0RF divalproex 125 mg Capsule, Delayed Rel Sprinkle 375 mg PO BID Qty: 30 0RF Continued lidocaine 4 % cream 1 appl topical BID PRN (Reason: pain) omeprazole 40 mg capsule,delayed release(DR/EC) 1 cap PO DAILY acetaminophen [Mapap Arthritis Pain] 650 mg tablet extended release 650 mg PO TID hydrocortisone 1 % cream 1 appl topical BID PRN (Reason: Rash) metoprolol tartrate 50 mg tablet 1 tab PO BID gabapentin 300 mg capsule 1 cap PO TID ziprasidone HCl 60 mg capsule 1 cap PO BEDTIME insulin lispro 100 unit/mL insulin pen 0 sliding scale dose subcut TIDAC rosuvastatin 40 mg tablet 1 tab PO BEDTIME duloxetine 30 mg capsule,delayed release(DR/EC) 1 cap PO DAILY insulin glargine [Lantus Solostar U-100 Insulin] 100 unit/mL (3 mL) insulin pen 25 unit subcut QAM diclofenac sodium 1 % gel 2 g topical BID PRN (Reason: Pain) trazodone 100 mg tablet 1 tab PO BEDTIME Discontinued primidone 50 mg tablet 1 tab PO DAILY benztropine 0.5 mg tablet 1 tab PO QPM divalproex 500 mg tablet,delayed release (DR/EC) 2 tab PO DAILY quetiapine 100 mg tablet 200 mg PO BEDTIME fluoxetine 20 mg capsule 2 cap PO BID Discharge Orders: Discharge Order (Routine); Ordered 06/25/22 Ordered By: Sj Sigala Diet: Advance to usual diet Activity on Discharge: As tolerated Stand Alone Forms: Patient Portal Discharge page Care Plan Goals: recovery Health Concerns: pna Plan of Treatment: 7 more days augmentin, psych meds altered per med rec Assessment: see above
[2022-06-25] MEDS: cefTRIAXone sodium 1 GM in 0.9 % Sodium Chloride 50 ML IV (12:26)
--- NOTE | 2022-06-25 12:27 | MHC.CM.PN ---
Addendum entered by Sidra Jackman 06/25/22 15:40: ALEXIS SPOKE TO PTS SISTER/HCP, DENG [phone] AND INFORMED HER STR HAD BEEN RECOMMENDED BUT NONE OF THE LOCAL CONTRACTED SNFS HAVE ACCEPTED THE REFERRAL SHE REPORTS SHE FEELS IT WOULD BE BETTER FOR THE PT TO RETURN HOME AND SHE CAN ASK [facility] FOR ASSISTANCE PLACING HIM LATER IF HE DOES NEED IT. SHE IS AWARE [facility] WILL BE PROVIDING THE HOME PHYSICAL THERAPY SERVICES SHE WILL PROVIDE TRANSPORTATION FOR PT AT 1700 HOURS [facility] CM, WAS UPDATED VIA T/C Addendum entered by Sidra Jackman 06/25/22 13:19: FOLLOW UP PT EVAL ALSO PENDING Addendum entered by Sidra Jackman 06/25/22 13:17: CM MET WITH PT WHO REPORTS HE WOULD LIKE TO GO TO [facility] BUT THEN SAYS HE WOULD RATHER HIS SISTER DECIDE CM ATTEMPTED TO REACH HIS SISTER, DEGN [phone], HOWEVER THE CALL WENT TO . MESSAGE LEFT REQUESTING A RETURN CALL Addendum entered by Sidra Jackman 06/25/22 12:39: PT EVAL AND DC SUMMARY FAXED TO [facility] ELECTRONICALLY SENT TO PREFERRED PHARMACY REQUESTED Original Note: PT CLEARED TO DC TODAY CM CALLED HIS CM AT [facility], GAVINO [phone] WHO REPORTS THEY CAN PROVIDE THE HOME PT SERVICES HE REPORTS HE DOES NOT NEED A FACE TO FACE ORDER BUT DOES NEED THE DC SUMMARY AND PT EVAL FAXED TO HIM AT [phone]. HE ALSO ASKS THAT NEW MEDS BE FAXED TO THE [facility] ON [facility] IN [place] PT WILL DC HOME TODAY WITH RESUMPTION OF LABORATORY TECH CARE AND NEW HOME PT SERVICES SISTER TO TRANSPORT
--- NOTE | 2022-06-25 12:29 | W.MHC.F2F ---
Service Date Service Date: 06/25/22 Encounter Date of encounter: 06/25/22 Reasons for Services Signs and symptoms assessed: falls Reason for physical therapy: home safety and mobility, therapeutic exercises, restore joint function and gait/transfer training Homebound: Leaving the home is medically contraindicated at this time without the asist of a device and/or another person due th the listed conditions above and below. Reason homebound: unsteady gait / fall risk Certification: Based on the above findings, I certify that this patient is confined to the home and needs intermittent snf care, physical therapy and/or speech therapy, or continues to need occupational therapy. The patient is under my care, and I have initiated the establishment of the plan of care. The patient will be followed by a physician who will periodically review the plan of care.
[2022-06-25 13:43] VITALS: BP 122/75; PULSE 87; O2SAT 96
[2022-06-25] MEDS: Enoxaparin Sodium 40 MG/0.4 ML SYRINGE SUBCUT (14:13)
[2022-06-25 15:37] VITALS: BP 137/73; PULSE 83; RESP 16; TEMP 36.3; O2SAT 97
--- NOTE | 2022-06-25 15:44 | HO.PM.IMPN ---
Subjective Subjective Date of Service: 06/25/22 Interval History: cc: fall interval history:much better Cardiovascular Cardiovascular: Reports no additional cardiovascular complaints Respiratory Respiratory: Reports no additional respiratory complaints Physical Exam Vital Signs: Vital Signs: Last Vital Signs Temp 97.3 F 06/25/22 15:37 Pulse 83 06/25/22 15:37 Resp 16 06/25/22 15:37 BP 137/73 06/25/22 15:37 Pulse Ox 97 06/25/22 15:37 O2 Del Method 06/25/22 15:37 O2 Flow Rate 2 06/24/22 07:45 BMI result Body Mass Index 26.7 General: AO X 3, no acute distress Resp: CTA bilateral, no accessory muscles used CVS: S1,S2,RRR GI: soft, non tender, non distended Neuro: motor grossly intact, alert, resting tremor, improves with activity, some rigidity Psych: appropriate affect, appropriate insight Objective Data Active Medications Acetaminophen (Acetaminophen 325 Mg Tablet) 650 mg PO Q6H PRN PRN Reason: Pain, Mild, fever Last Admin: 06/24/22 00:21 Dose: 650 mg Documented By: CHAITANYA Atorvastatin Calcium (Atorvastatin Calcium 80 Mg Tablet) 80 mg PO BEDTIME [facility] Last Admin: 06/24/22 20:17 Dose: 80 mg Documented By: NENA Divalproex Sodium (Divalproex Sodium Sprinkles 125 Mg Cap.) 375 mg PO BID [facility] Last Admin: 06/25/22 09:04 Dose: 375 mg Documented By: TENISHA Docusate Sodium (Docusate Sodium 100 Mg Capsule) 100 mg PO BID PRN PRN Reason: Constipation Duloxetine HCl (Duloxetine Hcl 30 Mg Cathie.) 30 mg PO DAILY [facility] Last Admin: 06/25/22 09:04 Dose: 30 mg Documented By: TENISHA Enoxaparin Sodium (Enoxaparin Sodium 40 Mg/0.4 Ml Syringe) 40 mg SUBCUT Q24H [facility] Last Admin: 06/25/22 14:13 Dose: 40 mg Documented By: TENISHA Gabapentin (Gabapentin 300 Mg Capsule) 300 mg PO TID [facility] Last Admin: 06/25/22 14:13 Dose: 300 mg Documented By: TENISHA Ceftriaxone Sodium 1 gm/ (Sodium Chloride) 50 mls @ 100 mls/hr IV Q24H [facility] Last Infusion: 06/25/22 13:32 Dose: 0 mls/hr Documented By: TENISHA Doxycycline Hyclate 100 mg/ (Sodium Chloride) 250 mls @ 166.67 mls/hr IV Q12H [facility] Last Infusion: 06/25/22 12:32 Dose: 0 mls/hr Documented By: TENISHA Insulin Glargine (Insulin Glargine,Hum.Rec.Anlog 100 Unit/Ml 10 Ml Vial) 25 unit SUBCUT DAILY [facility] Last Admin: 06/25/22 09:03 Dose: 25 unit Documented By: TENISHA Metoprolol Tartrate (Metoprolol Tartrate 50 Mg Tablet) 50 mg PO BID [facility]; Protocol Last Admin: 06/23/22 22:23 Dose: 50 mg Documented By: FRANCISCO J Omeprazole (Omeprazole 40 Mg Capsule.) 40 mg PO DAILY@0630 [facility] Last Admin: 06/25/22 05:43 Dose: 40 mg Documented By: NENA Ondansetron HCl (Ondansetron Hcl 4 Mg/2 Ml Vial) 4 mg IVPUSH Q8H PRN PRN Reason: Nausea and Vomiting Pharmacy Consult (Consult Rx Perform Med Rec) 1 each MISCELLANE ONCE PRN PRN Reason: Consult order Propranolol HCl (Propranolol Hcl 20 Mg Tablet) 20 mg PO BID [facility]; Protocol Last Admin: 06/25/22 09:04 Dose: 20 mg Documented By: TENISHA Quetiapine Fumarate (Quetiapine Fumarate 100 Mg Tablet) 100 mg PO BEDTIME [facility] Last Admin: 06/24/22 20:17 Dose: 100 mg Documented By: NENA Sodium Chloride (0.9 % Sodium Chloride Flush 3 Ml Syringe) 3 ml IVFLUSH QSHIFT [facility] Last Admin: 06/25/22 15:02 Dose: Not Given Documented By: TENISHA Non-Admin Reason: Previously Administered Trazodone HCl (Trazodone Hcl 100 Mg Tablet) 100 mg PO BEDTIME [facility] Last Admin: 06/24/22 20:17 Dose: 100 mg Documented By: NENA Ziprasidone (Ziprasidone 60 Mg Capsule) 60 mg PO BEDTIME [facility] Last Admin: 06/24/22 20:17 Dose: 60 mg Documented By: NENA Labs CBC & Chem 7: 06/25/22 05:52 06/25/22 05:52 Labs: Laboratory Results - last 24 hr 06/24/22 06/24/22 06/25/22 19:32 21:08 05:52 MCV 87.2 MCH 30.4 MCHC 34.9 RDW 13.0 Plt Count 148 L MPV 10.3 Absolute Nucleated RBC 0.000 Nucleated RBC % (auto) 0.0 Anion Gap Estim Creat Clear Calc Estimated GFR POC Glucose 177 H Fasting Glucose Calcium Magnesium Valproic Acid 63.0 06/25/22 06/25/22 06/25/22 05:52 07:05 11:21 MCV MCH MCHC RDW Plt Count MPV Absolute Nucleated RBC Nucleated RBC % (auto) Anion Gap 19 Estim Creat Clear Calc 77.9 Estimated GFR > 60 POC Glucose 130 H 197 H Fasting Glucose 114 H Calcium 8.6 D Magnesium 1.6 Valproic Acid Microbiology Microbiology Results: Microbiology 06/23/22 12:29 Blood Culture - Preliminary Blood - Venous No growth after 48 hours. 06/23/22 12:26 Blood Culture - Preliminary Blood - Venous No growth after 48 hours. Assessment and Plan (1) Sepsis: Status: Acute Plan 57M with PMH of chronic back pain, schizoaffective disorder, HTN, DM, presented with fall, fevers Sepsis present on admission secondary to suspected aspiration pneumonia Continue ceftriaxone and doxycycline Follow-up cultures much improved Recurrent falls Possibly due to extrapyramidal symptoms from antipsychotics Follow-up psychiatry, PT Diabetes Continue insulin, monitor point of care Schizoaffective disorder psychiatry appreciated, (see note for med changes) Chronic low back pain Continue Tylenol and gabapentin Hyperlipidemia Continue statin DVT prophylaxis with Lovenox Full code reason for continued hospitalization: awaiting SNF placement Quality Stroke Does the patient have a stroke diagnosis?: No VTE Prior VTE?: No VTE Risk Level:: Medical - moderate - high VTE Device Contraindication: Treatment Not Indicated VTE Drug Contraindication: N/A - Med Ordered
[2022-06-25 16:10] LABS: Glucose, Whole Blood 245 mg/dL (60-115)
== END 2022-06-25 18:44 | disposition home health service (06) | DRG 179 ==
LOC: HO.ED 10:04 → HO.EDOVER 14:28 → HO.S3 06-24 07:29
PROVIDERS: Nurse Practitioner Family; Registered Nurse; Admitting Provider Physician Assistant; Emergency Provider Emergency Medicine; PCP Nurse Practitioner; Visit Provider Internal Medicine
DX: J69.0 Pneumonitis due to inhalation of food and vomit (principal); E78.5 Hyperlipidemia, unspecified; M54.50 Low back pain, unspecified; R29.6 Repeated falls; F25.0 Schizoaffective disorder, bipolar type; Z91.81 History of falling; G25.70 Drug induced movement disorder, unspecified; T43.505A Adverse effect of unspecified antipsychotics and neuroleptics, initial encounter; G89.29 Other chronic pain; Z20.822 Contact with and (suspected) exposure to COVID-19; Z87.891 Personal history of nicotine dependence; Z79.4 Long term (current) use of insulin; Z79.899 Other long term (current) drug therapy
CPT/HCPCS: 36415; 70450; 71045; 72131; 80048; 80053; 80164; 81003; 82947; 83605; 83735; 84484; 85025; 85027; 87040; 87635; 93005; 96361; 96374; 97110; 97116; 97162; 99285; J0456; J0696; J1650

== ENCOUNTER 2022-10-21 18:54 | Emergency (ER) | payer MEDICARE, SELFPAY ==
--- NOTE | ~2022-10-21 | XR_ITS ---
EXAMINATION: PORTABLE CHEST 1 VIEW CLINICAL INFORMATION: cp . COMPARISON: 06/23/2022. TECHNIQUE: Portable frontal view of the chest was obtained. FINDINGS: The lungs are well expanded. Linear scarring or atelectasis at both lung bases again noted. No focal infiltrate, effusion, edema, or pneumothorax. Cardiac and mediastinal silhouettes are within normal limits for technique. Cervical spine hardware partially seen. No acute bony abnormality seen. XR/XR chest 1V IMPRESSION: Chronic appearing changes similar to the 06/23/2022 study.
--- NOTE | 2022-10-21 07:36 | ECG_ITS ---
Test Reason : CP Blood Pressure : / mmHG Vent. Rate : 079 BPM Atrial Rate : 079 BPM P-R Int : 158 ms QRS Dur : 086 ms QT Int : 392 ms P-R-T Axes : 049 016 030 degrees QTc Int : 449 ms Poor data quality, interpretation may be adversely affected Normal sinus rhythm Normal ECG When compared with ECG of 21-OCT-2022 19:29, No significant change was found Referred By: Edi Novoa Electronically Signed By:SERGEY JUSTICE
--- NOTE | 2022-10-21 18:57 | ECG_ITS ---
Test Reason : CHEST PAIN Blood Pressure : / mmHG Vent. Rate : 083 BPM Atrial Rate : 083 BPM P-R Int : 162 ms QRS Dur : 084 ms QT Int : 378 ms P-R-T Axes : 018 -06 019 degrees QTc Int : 444 ms Normal sinus rhythm Normal ECG No significant changes when compared with the previous EKG of 28sept 2021 Referred By: Tosha Rees Electronically Signed By:SREGEY JUSTICE
[2022-10-21 20:13] VITALS: BP 157/97; PULSE 80; RESP 16; TEMP 36.8; O2SAT 99; BMI 26.3
[2022-10-21 21:01] VITALS: BP 161/98; PULSE 76; RESP 18; O2SAT 100
--- NOTE | 2022-10-21 21:20 | ED_ITS ---
HPI - Chest Pain General Chief Complaint: Chest Pain Stated Complaint: chest pain,headache Time Seen by Provider: 10/21/22 21:16 Source: patient Mode of arrival: ambulatory Limitations: no limitations History of Present Illness HPI narrative: Patient has a schizoaffective disorder no known coronary artery disease noticed left-sided chest pain while driving about 3 hours ago chest were localized to the left side with pressure-like feeling constant no radiation of the pain no diaphoresis no shortness of breath while in the waiting area patient also complaining of headache which is diffuse no nausea no vomiting no diaphoresis patient does get headaches off and on. Patient had previous stress test few years ago was negative also had cardiac catheterization few years ago , which was according to patient showed only 30% artery blockage patient take baby aspirin daily Related Data Home Medications Medication Instructions Recorded Confirmed acetaminophen 650 mg 650 mg PO TID 06/23/22 06/23/22 tablet,extended release (Mapap Arthritis Pain) diclofenac sodium 1 % topical gel 2 g topical BID PRN Pain 06/23/22 06/23/22 duloxetine 30 mg capsule,delayed 1 cap PO DAILY 06/23/22 06/23/22 release gabapentin 300 mg capsule 1 cap PO TID 06/23/22 06/23/22 hydrocortisone 1 % topical cream 1 appl topical BID PRN Rash 06/23/22 06/23/22 insulin glargine 100 unit/mL (3 25 unit subcut QAM 06/23/22 06/23/22 mL) subcutaneous pen (Lantus Solostar U-100 Insulin) insulin lispro 100 unit/mL 0 sliding scale dose subcut TIDAC 06/23/22 06/23/22 subcutaneous pen lidocaine 4 % topical cream 1 appl topical BID PRN pain 06/23/22 06/23/22 metoprolol tartrate 50 mg tablet 1 tab PO BID 06/23/22 06/23/22 omeprazole 40 mg capsule,delayed 1 cap PO DAILY 06/23/22 06/23/22 release rosuvastatin 40 mg tablet 1 tab PO BEDTIME 06/23/22 06/23/22 trazodone 100 mg tablet 1 tab PO BEDTIME 06/23/22 06/23/22 ziprasidone HCl 60 mg capsule 1 cap PO BEDTIME 06/23/22 06/23/22 Previous Rx's Medication Instructions Recorded amoxicillin 875 mg-potassium 1 tab PO Q12H #14 tabs 06/25/22 clavulanate 125 mg tablet divalproex 125 mg capsule,delayed 375 mg PO BID #30 caps 06/25/22 release sprinkle quetiapine 100 mg tablet 100 mg PO BEDTIME #30 tabs 06/25/22 Allergies Allergy/AdvReac Type Severity Reaction Status Date / Time No Known Allergies Allergy Mild NONE Unverified 06/12/20 15:23 Review of Systems Review of Systems: Yes all other systems are reviewed and are negative [facility] Past Medical History Medical History Bipolar 1 disorder Chronic low back pain Depression Schizophrenia Tremor of both hands Type 2 diabetes mellitus Family History Family History Mother HTN (hypertension) Diabetes Alzheimer disease Father Diabetes HTN (hypertension) Schizophrenia PVD (peripheral vascular disease) CAD (coronary artery disease) Bipolar 1 disorder Social History Social History Household Members: Family Housing: Apartment Do you presently have visiting nurse or other home services: No Patient Tobacco Use Status: Former Tobacco user Smoked in Last 30 Days: No Use of substances other than those prescribed or required for medical reasons: No Advance Directives: Yes Advance Directives Information Provided: No Advance Directives on File: No service: No Current occupational status: unemployed Physical Exam Vital Signs: Vital Signs: Last Vital Signs Temp 98.0 F 10/21/22 23:18 Pulse 79 10/21/22 23:18 Resp 15 10/21/22 23:18 BP 161/100 H 10/21/22 23:18 Pulse Ox 95 10/21/22 23:18 O2 Del Method 10/21/22 23:18 BMI result Body Mass Index 26.3 Appearance: Alert. Oriented X3. No acute distress. Eyes: PERRLA, No Nystagmus ENT: Pharynx normal. Oral Mucosa moist Neck: Normal inspection. Neck supple. CVS: Normal heart rate and rhythm. Pulses normal. Respiratory: No respiratory distress. Equal air entry bilateral, no wheezing/rales/rhonchi Abdomen: Soft and nontender. Bowel sounds are present, no mass palpable, no CVA tenderness Skin: Skin warm and dry. Normal skin color. Normal skin turgor. Extremities: No lower extremity edema. No calf tenderness Neuro: Oriented X 3. No motor deficit. No sensory deficit.No cerebellar signs , cranial nerves II-XII intact Medications Administered Discontinued Medications Generic Name Dose Route Start Last Admin Trade Name Ladonna PRN Reason Stop Dose Admin Aspirin 162 mg 10/21/22 21:38 10/21/22 21:52 Aspirin 81 Mg Tab.Chew PO 10/21/22 21:39 162 mg ONCE ONE Administration Medical Decision Making Medical Decision Making [facility] Narrative: Patient atypical chest pain normal cardiogram 2 sets of high sensitive troponin negative discharge patient home advised to follow with PCP for further evaluation Lab Data [facility] Lab Attestation statement: I reviewed the patient's lab results. 10/21/22 21:43 10/21/22 21:43 Labs: Lab Results 10/21/22 10/21/22 10/21/22 Range/Units 21:43 21:43 21:43 WBC 4.9 (4.8-10.8) X10*3/uL RBC 4.29 L (4.60-5.80) X10*6/uL Hgb 13.2 L (14.0-18.0) g/dl Hct 36.9 L (42.0-52.0) % MCV 86.0 (80.0-98.0) fL MCH 30.8 (27.0-33.0) pg MCHC 35.8 (31.0-36.0) g/dl RDW 13.8 (11.0-16.0) % Plt Count 176 (160-400) X10*3/uL MPV 10.0 (9.4-12.4) fL Immature Gran % (Auto) 0.2 (0.0-0.4) % Neut % (Auto) 54.9 (45-73) % Lymph % (Auto) 25.7 (20-40) % [place] % (Auto) 9.3 (2-11) % Eos % (Auto) 9.5 H (0-4) % Baso % (Auto) 0.4 (0-2) % Lymph # (Auto) 1.3 (1.2-4.9) X10*3/uL [place] # (Auto) 0.5 (0.1-1.2) X10*3/uL Eos # (Auto) 0.5 H (0.0-0.4) X10*3/uL Baso # (Auto) 0.0 (0.0-0.2) X10*3/uL Abs Immat Gran (auto) 0.01 (0.00-0.03) X10*3/uL Absolute Neuts (auto) 2.7 (2.0-8.3) x10*3/uL Absolute Nucleated RBC 0.000 (0.0-0.012) X10*3/uL Nucleated RBC % (auto) 0.0 (0.0-0.2) /100WBC PT 11.7 (10.0-13.1) SEC INR 1.0 (0.9-1.1) Sodium 138 (135-145) mmol/L Potassium 4.7 D (3.3-5.1) mmol/L Chloride 102 (96-108) mmol/L Carbon Dioxide 28 (22-29) mmol/L Anion Gap 13 (12-20) BUN 7 L (9-16) mg/dL Creatinine 1.07 (0.5-1.4) mg/dL Estim Creat Clear Calc 72.8 Estimated GFR > 60 Random Glucose 216 H (60-115) mg/dL Calcium 9.6 D (8.4-10.2) mg/dL Magnesium 1.9 (1.6-2.6) mg/dL Total Bilirubin 0.7 (0.0-1.0) mg/dL AST 34 (5-37) U/L ALT 51 H (0-40) U/L Alkaline Phosphatase 88 (39-117) U/L Troponin I High Sens (<3.5-35.0) ng/L Total Protein 7.3 (6.5-8.0) g/dL Albumin 4.0 (3.5-5.0) g/dL 10/21/22 10/21/22 Range/Units 21:43 23:47 WBC (4.8-10.8) X10*3/uL RBC (4.60-5.80) X10*6/uL Hgb (14.0-18.0) g/dl Hct (42.0-52.0) % MCV (80.0-98.0) fL MCH (27.0-33.0) pg MCHC (31.0-36.0) g/dl RDW (11.0-16.0) % Plt Count (160-400) X10*3/uL MPV (9.4-12.4) fL Immature Gran % (Auto) (0.0-0.4) % Neut % (Auto) (45-73) % Lymph % (Auto) (20-40) % [place] % (Auto) (2-11) % Eos % (Auto) (0-4) % Baso % (Auto) (0-2) % Lymph # (Auto) (1.2-4.9) X10*3/uL [place] # (Auto) (0.1-1.2) X10*3/uL Eos # (Auto) (0.0-0.4) X10*3/uL Baso # (Auto) (0.0-0.2) X10*3/uL Abs Immat Gran (auto) (0.00-0.03) X10*3/uL Absolute Neuts (auto) (2.0-8.3) x10*3/uL Absolute Nucleated RBC (0.0-0.012) X10*3/uL Nucleated RBC % (auto) (0.0-0.2) /100WBC PT (10.0-13.1) SEC INR (0.9-1.1) Sodium (135-145) mmol/L Potassium (3.3-5.1) mmol/L Chloride (96-108) mmol/L Carbon Dioxide (22-29) mmol/L Anion Gap (12-20) BUN (9-16) mg/dL Creatinine (0.5-1.4) mg/dL Estim Creat Clear Calc Estimated GFR Random Glucose (60-115) mg/dL Calcium (8.4-10.2) mg/dL Magnesium (1.6-2.6) mg/dL Total Bilirubin (0.0-1.0) mg/dL AST (5-37) U/L ALT (0-40) U/L Alkaline Phosphatase (39-117) U/L Troponin I High Sens < 3.5 < 3.5 (<3.5-35.0) ng/L Total Protein (6.5-8.0) g/dL Albumin (3.5-5.0) g/dL Independent Interpretation I performed an independent interpretation of an: EKG Interpretation: Normal sinus rhythm heart rate 79 beats per minute normal interval normal axis no acute distress in acute ischemia impression normal EKG Discharge Plan Discharge Clinical Impression: Chest pain Patient Disposition: Home, Self-Care Instructions: Chest Pain (ED) Additional Instructions: Cause of chest pain is not very clear Follow-up with your PCP of evaluation including stress test Report to the ER if chest pain continues Prescriptions: No Action lidocaine 4 % cream 1 appl topical BID PRN (Reason: pain) omeprazole 40 mg capsule,delayed release(DR/EC) 1 cap PO DAILY acetaminophen [Mapap Arthritis Pain] 650 mg tablet extended release 650 mg PO TID hydrocortisone 1 % cream 1 appl topical BID PRN (Reason: Rash) metoprolol tartrate 50 mg tablet 1 tab PO BID gabapentin 300 mg capsule 1 cap PO TID ziprasidone HCl 60 mg capsule 1 cap PO BEDTIME insulin lispro 100 unit/mL insulin pen 0 sliding scale dose subcut TIDAC rosuvastatin 40 mg tablet 1 tab PO BEDTIME duloxetine 30 mg capsule,delayed release(DR/EC) 1 cap PO DAILY insulin glargine [Lantus Solostar U-100 Insulin] 100 unit/mL (3 mL) insulin pen 25 unit subcut QAM diclofenac sodium 1 % gel 2 g topical BID PRN (Reason: Pain) trazodone 100 mg tablet 1 tab PO BEDTIME amoxicillin-pot clavulanate 875-125 mg tablet 1 tab PO Q12H Qty: 14 0RF quetiapine 100 mg Tablet 100 mg PO BEDTIME Qty: 30 0RF divalproex 125 mg Capsule, Delayed Rel Sprinkle 375 mg PO BID Qty: 30 0RF Interventions: ED Discharge Assessment Last Done: 10/22/22 00:44 Discharge Date/Time: 10/22/22 00:44
[2022-10-21 21:52] LABS: MANUAL DIFF FLAG NO
[2022-10-21] MEDS: Aspirin 81 MG TAB.CHEW 162 MG PO (21:52)
[2022-10-21 21:53] LABS: Basophils Percent Auto 0.4 % (0-2); Eosinophils Absolute Auto 0.5 X10*3/uL (0.0-0.4); Eosinophils Percent Auto 9.5 % (0-4); Hematocrit 36.9 % (42.0-52.0); Hemoglobin 13.2 g/dl (14.0-18.0); Imm Gran Abs Auto 0.01 X10*3/uL (0.00-0.03); Imm Gran Pct Auto 0.2 % (0.0-0.4); Lymphocytes Absolute Auto 1.3 X10*3/uL (1.2-4.9); Lymphocytes Percent Auto 25.7 % (20-40); Mean Corpuscular HGB Conc 35.8 g/dl (31.0-36.0); Mean Corpuscular Hemoglobin 30.8 pg (27.0-33.0); Monocytes Absolute Auto 0.5 X10*3/uL (0.1-1.2); Monocytes Percent Auto 9.3 % (2-11); Neutrophils Absolute Auto 2.7 x10*3/uL (2.0-8.3); Neutrophils Percent Auto 54.9 % (45-73); Platelet Count 176 X10*3/uL (160-400); Red Blood Count 4.29 X10*6/uL (4.60-5.80); Red Cell Distribution Width 13.8 % (11.0-16.0); White Blood Count 4.9 X10*3/uL (4.8-10.8)
[2022-10-21 21:58] LABS: Prothrombin Time 11.7 SEC (10.0-13.1)
[2022-10-21 22:08] LABS: Alanine Aminotransferase 51 U/L (0-40); Alkaline Phosphatase 88 U/L (39-117); Anion Gap 13 (12-20); Aspartate Amino Transferase 34 U/L (5-37); Bilirubin Total 0.7 mg/dL (0.0-1.0); Blood Urea Nitrogen 7 mg/dL (9-16); Calcium 9.6 mg/dL (8.4-10.2); Carbon Dioxide 28 mmol/L (22-29); Chloride 102 mmol/L (96-108); Creatinine Clr Calc Pharmacy 72.8; Estimated Glomerular Filt Rate > 60; Glucose Random 216 mg/dL (60-115); Magnesium 1.9 mg/dL (1.6-2.6); Potassium 4.7 mmol/L (3.3-5.1); Sodium 138 mmol/L (135-145); Total Protein 7.3 g/dL (6.5-8.0)
[2022-10-21 22:20] LABS: Troponin-I High Sensitivity < 3.5 ng/L (<3.5-35.0)
[2022-10-21 23:18] VITALS: BP 161/100; PULSE 79; RESP 15; TEMP 36.7; O2SAT 95
[2022-10-22 00:13] LABS: Troponin-I High Sensitivity < 3.5 ng/L (<3.5-35.0)
--- NOTE | 2022-10-22 00:43 | PC.NURSE ---
Pt aox4 in no apparent distress. Reports no pain. IV line removed with no complication. Pt tolerated well. Discharge instructions reviewed with pt. Pt verbalizes understanding. Pt ambulatory with steady gait. Family at bedside.
== END 2022-10-22 00:44 | disposition home or self-care (01) ==
PROVIDERS: Emergency Provider Internal Medicine
DX: R07.89 Other chest pain (principal); Z79.899 Other long term (current) drug therapy; Z87.891 Personal history of nicotine dependence
CPT/HCPCS: 36415; 71045; 80053; 83735; 84484; 85025; 85610; 93005; 99283; 99285

== ENCOUNTER 2023-03-05 10:42 | Emergency (ER) | payer MEDICARE, MEDICAID, SELFPAY ==
--- NOTE | ~2023-03-05 | XR_ITS ---
EXAMINATION: XR SHOULDER, LEFT CLINICAL INFORMATION: Left shoulder pain. COMPARISON: None available. TECHNIQUE: Three views of the left shoulder. FINDINGS: The bones and soft tissues are normal. No fracture. Glenohumeral and acromioclavicular alignment is anatomic with normal joint space. No abnormal soft tissue calcifications. Anterior cervical spine fixation plate without abnormality. XR/XR shoulder LT min 2V IMPRESSION: Unremarkable left shoulder.
[2023-03-05 10:47] VITALS: BP 136/92; PULSE 100; RESP 19; TEMP 36.6; O2SAT 98; BMI 26.6
--- NOTE | 2023-03-05 11:50 | ED_ITS ---
HPI - Extremity Problem General Chief complaint: Extremity Injury, Upper Stated complaint: l arm shoulder neck locked painfull Time Seen by Provider: 03/05/23 11:43 History of Present Illness HPI Narrative: Patient complains of left sided neck and trapezius pain and spasm similar to prior episodes There is no injury no fever there is no loss of sensation no loss of muscle strength, no change to bowel or bladder no incontinence no dysuria, no fever no headache Related Data Home Medications Medication Instructions Recorded Confirmed acetaminophen 650 mg 650 mg PO TID 06/23/22 06/23/22 tablet,extended release (Mapap Arthritis Pain) diclofenac sodium 1 % topical gel 2 g topical BID PRN Pain 06/23/22 06/23/22 duloxetine 30 mg capsule,delayed 1 cap PO DAILY 06/23/22 06/23/22 release gabapentin 300 mg capsule 1 cap PO TID 06/23/22 06/23/22 hydrocortisone 1 % topical cream 1 appl topical BID PRN Rash 06/23/22 06/23/22 insulin glargine 100 unit/mL (3 25 unit subcut QAM 06/23/22 06/23/22 mL) subcutaneous pen (Lantus Solostar U-100 Insulin) insulin lispro 100 unit/mL 0 sliding scale dose subcut TIDAC 06/23/22 06/23/22 subcutaneous pen lidocaine 4 % topical cream 1 appl topical BID PRN pain 06/23/22 06/23/22 metoprolol tartrate 50 mg tablet 1 tab PO BID 06/23/22 06/23/22 omeprazole 40 mg capsule,delayed 1 cap PO DAILY 06/23/22 06/23/22 release rosuvastatin 40 mg tablet 1 tab PO BEDTIME 06/23/22 06/23/22 trazodone 100 mg tablet 1 tab PO BEDTIME 06/23/22 06/23/22 ziprasidone HCl 60 mg capsule 1 cap PO BEDTIME 06/23/22 06/23/22 Previous Rx's Medication Instructions Recorded amoxicillin 875 mg-potassium 1 tab PO Q12H #14 tabs 06/25/22 clavulanate 125 mg tablet divalproex 125 mg capsule,delayed 375 mg PO BID #30 caps 06/25/22 release sprinkle quetiapine 100 mg tablet 100 mg PO BEDTIME #30 tabs 06/25/22 diazepam 5 mg tablet (Valium) 5 mg PO TID PRN muscle spasm #14 03/05/23 tabs naproxen 500 mg tablet (Naprosyn) 500 mg PO BID PRN pain #20 tabs 03/05/23 prednisone 20 mg tablet 60 mg PO DAILY 2 days #6 tabs 03/05/23 Allergies Allergy/AdvReac Type Severity Reaction Status Date / Time No Known Allergies Allergy Mild NONE Verified 03/05/23 10:47 [facility] Past Medical History Source: nursing notes reviewed Medical History Bipolar 1 disorder Chronic low back pain Depression Schizophrenia Tremor of both hands Type 2 diabetes mellitus Family History Family History Mother HTN (hypertension) Diabetes Alzheimer disease Father Diabetes HTN (hypertension) Schizophrenia PVD (peripheral vascular disease) CAD (coronary artery disease) Bipolar 1 disorder Social History Social History Household Members: Family Housing: Apartment Do you presently have visiting nurse or other home services: No Patient Tobacco Use Status: Former Tobacco user Advance Directives: No Advance Directives Information Provided: Yes service: No Current occupational status: unemployed Physical Exam Vital Signs: Vital Signs: Last Vital Signs Temp 98 F 03/05/23 10:47 Pulse 100 03/05/23 10:47 Resp 19 03/05/23 10:47 BP 136/92 H 03/05/23 10:47 Pulse Ox 98 03/05/23 10:47 O2 Del Method Room Air 03/05/23 10:47 BMI result Body Mass Index 26.6 General appearance uncomfortable no distress Head is normocephalic atraumatic The neck is supple in flexion and extension but lateral movement is painful, he has tenderness over the left lateral paraspinal area and left trapezius, there is no swelling, there is no redness no warmth, skin has no rash and skin is intact, there is no focal bony tenderness Chest is clear to auscultation bilateral no chest wall tenderness Extremities full range of motion x4 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 and symmetrical, sensation is intact and symmetrical in both hands Course Course Course Narrative: Patient with cervical radiculopathy with pain shooting down from the left side of neck to left shoulder and humerus area No neurologic deficit no change to bowel or bladder, there was full range of motion in the shoulder, all tenderness was left-sided neck and trapezius Left shoulder x-ray was done from triage in is normal Well-appearing patient with episode of spasm and pain in left neck and left trapezius similar to prior is discharged with muscle relaxer and analgesics and a short course of steroids Discharge Plan Discharge Clinical Impression: Cervical radiculopathy Patient Disposition: Home, Self-Care Additional Instructions: You likely have a pinched nerve in her neck sending pain into the left trapezius and the left arm Sometimes steroids will help with this so we are doing prednisone for 2 days in addition to today Check your sugars and adjust insulin as needed because prednisone can make sugars go up Follow with primary doctor if pain continues for possible referral to a specialist Return any time any worse condition or or concern Prescriptions: New naproxen [Naprosyn] 500 mg tablet 500 mg PO BID PRN (Reason: pain) Qty: 20 0RF prednisone 20 mg tablet 60 mg PO DAILY 2 Days Qty: 6 0RF diazepam [Valium] 5 mg tablet 5 mg PO TID PRN (Reason: muscle spasm) Qty: 14 0RF No Action lidocaine 4 % cream 1 appl topical BID PRN (Reason: pain) omeprazole 40 mg capsule,delayed release(DR/EC) 1 cap PO DAILY acetaminophen [Mapap Arthritis Pain] 650 mg tablet extended release 650 mg PO TID hydrocortisone 1 % cream 1 appl topical BID PRN (Reason: Rash) metoprolol tartrate 50 mg tablet 1 tab PO BID gabapentin 300 mg capsule 1 cap PO TID ziprasidone HCl 60 mg capsule 1 cap PO BEDTIME insulin lispro 100 unit/mL insulin pen 0 sliding scale dose subcut TIDAC rosuvastatin 40 mg tablet 1 tab PO BEDTIME duloxetine 30 mg capsule,delayed release(DR/EC) 1 cap PO DAILY insulin glargine [Lantus Solostar U-100 Insulin] 100 unit/mL (3 mL) insulin pen 25 unit subcut QAM diclofenac sodium 1 % gel 2 g topical BID PRN (Reason: Pain) trazodone 100 mg tablet 1 tab PO BEDTIME amoxicillin-pot clavulanate 875-125 mg tablet 1 tab PO Q12H Qty: 14 0RF quetiapine 100 mg Tablet 100 mg PO BEDTIME Qty: 30 0RF divalproex 125 mg Capsule, Delayed Rel Sprinkle 375 mg PO BID Qty: 30 0RF
[2023-03-05] MEDS: Acetaminophen 325 MG TABLET 975 MG PO (12:06)
[2023-03-05] MEDS: dexAMETHasone 2 MG TABLET 10 MG PO (12:07)
[2023-03-05] MEDS: diazePAM 2 MG TABLET 5 MG PO (12:08)
[2023-03-05] MEDS: Ketorolac Tromethamine 30 MG/ML VIAL IM (12:10)
== END 2023-03-05 12:24 | disposition home or self-care (01) ==
PROVIDERS: Emergency Provider Emergency Medicine
DX: M54.12 Radiculopathy, cervical region (principal); E11.9 Type 2 diabetes mellitus without complications; Z79.4 Long term (current) use of insulin; Z79.02 Long term (current) use of antithrombotics/antiplatelets; Z79.899 Other long term (current) drug therapy; Z87.891 Personal history of nicotine dependence
CPT/HCPCS: 73030; 96372; 99283; 99284; J1885; J8540

== ENCOUNTER 2023-04-04 12:07 | Outpatient (REF) | payer MEDICARE, SELFPAY ==
[2023-04-04 12:22] LABS: MANUAL DIFF FLAG NO
[2023-04-04 12:33] LABS: Basophils Percent Auto 0.7 % (0-2); Eosinophils Absolute Auto 0.5 X10*3/uL (0.0-0.4); Eosinophils Percent Auto 9.9 % (0-4); Hemoglobin 14.6 g/dl (14.0-18.0); Imm Gran Abs Auto 0.02 X10*3/uL (0.00-0.03); Imm Gran Pct Auto 0.4 % (0.0-0.4); Mean Corpuscular Hemoglobin 30.2 pg (27.0-33.0); Mean Corpuscular Volume 88.8 fL (80.0-98.0); Mean Platelet Volume 10.1 fL (9.4-12.4); Monocytes Absolute Auto 0.6 X10*3/uL (0.1-1.2); Neutrophils Absolute Auto 2.3 x10*3/uL (2.0-8.3); Platelet Count 215 X10*3/uL (160-400); Red Blood Count 4.84 X10*6/uL (4.60-5.80); Red Cell Distribution Width 14.9 % (11.0-16.0); White Blood Count 5.5 X10*3/uL (4.8-10.8)
[2023-04-04 13:48] LABS: Valproate 42.5 mcg/mL (50.0-100.0)
[2023-04-04 14:13] LABS: Estimated Average Glucose 189 mg/dL; Hemoglobin A1c % 8.2 %
[2023-04-04 14:21] LABS: Alanine Aminotransferase 28 U/L (0-40); Albumin Level 3.8 g/dL (3.5-5.0); Alkaline Phosphatase 73 U/L (39-117); Anion Gap 15 (12-20); Aspartate Amino Transferase 19 U/L (5-37); Bilirubin Total 1.1 mg/dL (0.0-1.0); Blood Urea Nitrogen 8 mg/dL (9-16); Calcium 9.8 mg/dL (8.4-10.2); Carbon Dioxide 28 mmol/L (22-29); Chloride 103 mmol/L (96-108); Cholesterol 117 mg/dL; Estimated Glomerular Filt Rate > 60; Glucose Random 208 mg/dL (60-115); HDL Cholesterol 37 mg/dL; LDL Cholesterol Calculated 37 mg/dl; Potassium 5.5 mmol/L (3.3-5.1); Sodium 140 mmol/L (135-145); Total Protein 7.3 g/dL (6.5-8.0); Triglycerides 215 mg/dL; Vitamin D 25-OH Total 34.3 ng/mL (>30)
== END 2023-04-04 12:08 | disposition home or self-care (01) ==
LOC: HO.LAB 12:07
PROVIDERS: Visit Provider Nurse Practitioner
DX: F25.0 Schizoaffective disorder, bipolar type (principal); Z79.899 Other long term (current) drug therapy
CPT/HCPCS: 36415; 80053; 80061; 80164; 82306; 83036; 85025

== ENCOUNTER 2023-09-04 17:12 | Inpatient (IN) | payer MEDICARE, MEDICAID, SELFPAY ==
[2023-09-04] VITALS (7 sets, daily range): BP systolic 103–160; BP diastolic 60–89; PULSE 65–96; RESP 17; TEMP 37; O2SAT 99–100; BMI 23.9
--- NOTE | 2023-09-04 | ECG_ITS ---
Test Reason : FALL Blood Pressure : / mmHG Vent. Rate : 085 BPM Atrial Rate : 085 BPM P-R Int : 128 ms QRS Dur : 092 ms QT Int : 354 ms P-R-T Axes : -23 -26 016 degrees QTc Int : 421 ms Normal sinus rhythm Lateral infarct , age undetermined Abnormal ECG When compared with ECG of 21-OCT-2022 19:47, Lateral infarct is now Present Nonspecific T wave abnormality, worse in Inferior leads Nonspecific T wave abnormality now evident in Lateral leads Referred By: Generic ED Physician Electronically Signed By:Chago Stewart
--- NOTE | ~2023-09-04 | CT_ITS ---
CT/CT head/brain wo IV con IMPRESSION: No intracranial hemorrhage. No cervical spine fracture. EXAMINATION: CT HEAD WITHOUT CONTRAST CT CERVICAL SPINE WITHOUT CONTRAST CLINICAL INFORMATION: Fall COMPARISON: CT head 06/23/2022. TECHNIQUE: Multidetector CT imaging of the head and cervical spine was performed without the use of intravenous contrast. Multiplanar reformats are reviewed. This CT examination was performed using dose optimization techniques as appropriate, variously including the following: *Automated exposure control *Adjustment of mA and/or kV according to patient size (this includes techniques or standardized protocols for targeted exams where dose is matched to indication/reason for exam; i.e. extremities or head) *Use of iterative reconstruction technique DLP: 389 mGy-cm. FINDINGS: There is no evidence of acute intracranial hemorrhage or territorial infarction. No abnormal mass effect or midline shift is seen. Perez to white matter differentiation is well preserved. No extra-axial fluid collections are identified. No hydrocephalus. Proportional prominence of the ventricles and sulcal spaces is consistent with mild volume loss. Patchy periventricular and deep white matter hypoattenuation is consistent with mild small vessel ischemic changes. No acute osseous or soft tissue abnormality. The mastoid air cells and visualized portions of the paranasal sinuses are well aerated. Prevertebral soft tissues appear normal. ACDF C5, C6, C7. Mild degenerative disc disease at C2-C3 and C3-C4. Moderate degenerative disc disease at C4-C5. Moderate facet arthrosis on the left at C2-C3. No visible fracture. Vertebral body heights appear normal. The posterior elements are intact. The paraspinal soft tissues appear normal. The lung apices are clear. No pneumothorax visible. No displaced rib fracture.
--- NOTE | ~2023-09-04 | CT_ITS ---
EXAMINATION: CT HEAD WITHOUT CONTRAST CT CERVICAL SPINE WITHOUT CONTRAST CLINICAL INFORMATION: Fall COMPARISON: CT head 06/23/2022. TECHNIQUE: Multidetector CT imaging of the head and cervical spine was performed without the use of intravenous contrast. Multiplanar reformats are reviewed. This CT examination was performed using dose optimization techniques as appropriate, variously including the following: *Automated exposure control *Adjustment of mA and/or kV according to patient size (this includes techniques or standardized protocols for targeted exams where dose is matched to indication/reason for exam; i.e. extremities or head) *Use of iterative reconstruction technique DLP: 389 mGy-cm. FINDINGS: There is no evidence of acute intracranial hemorrhage or territorial infarction. No abnormal mass effect or midline shift is seen. Perez to white matter differentiation is well preserved. No extra-axial fluid collections are identified. No hydrocephalus. Proportional prominence of the ventricles and sulcal spaces is consistent with mild volume loss. Patchy periventricular and deep white matter hypoattenuation is consistent with mild small vessel ischemic changes. No acute osseous or soft tissue abnormality. The mastoid air cells and visualized portions of the paranasal sinuses are well aerated. Prevertebral soft tissues appear normal. ACDF C5, C6, C7. Mild degenerative disc disease at C2-C3 and C3-C4. Moderate degenerative disc disease at C4-C5. Moderate facet arthrosis on the left at C2-C3. No visible fracture. Vertebral body heights appear normal. The posterior elements are intact. The paraspinal soft tissues appear normal. The lung apices are clear. No pneumothorax visible. No displaced rib fracture. CT/CT cervical spine wo IV con IMPRESSION: No intracranial hemorrhage. No cervical spine fracture.
--- NOTE | 2023-09-04 18:05 | ED.FALL ---
HPI - Fall General Chief Complaint: Fall Stated Complaint: fall Time Seen by Provider: 09/04/23 17:40 Source: patient and old records reviewed Mode of arrival: EMS Limitations: no limitations History of Present Illness HPI Narrative: 58 yo male with PMH of HLD, GERD, pneumonia, schizoaffective disorder, sepsis, from home sounds like he is being worked up for a tremor possible Parkinsons who comes in with c/o recurrent falls was standing had shaking of body then fell backwards hitting head on floor and dog bowls spouse denies LOC but he reports mild LOC it is vague - no hx of seizures. He is back to baseline, no incontinence, no postictal state, no tongue biting. New change in cymbalta from 60 to 90mg. No CP/SOB no GIB symptoms. MD complaint: fall Onset (ago): minute(s) (just prior to arrival ) Fall from: standing Fall witnessed: yes, by family Place fall occurred: home Loss of consciousness: unsure Length of LOC: second(s) Prolonged down time: no Symptoms prior to fall: other (shaking) Context: history of frequent falls Location of injury: head Severity: moderate Quality: aching Associated symptoms (after fall): headache Related Data Home Medications Medication Instructions Recorded Confirmed acetaminophen 650 mg 650 mg PO TID 06/23/22 06/23/22 tablet,extended release (Mapap Arthritis Pain) diclofenac sodium 1 % topical gel 2 g topical BID PRN Pain 06/23/22 06/23/22 duloxetine 30 mg capsule,delayed 1 cap PO DAILY 06/23/22 06/23/22 release gabapentin 300 mg capsule 1 cap PO TID 06/23/22 06/23/22 hydrocortisone 1 % topical cream 1 appl topical BID PRN Rash 06/23/22 06/23/22 insulin glargine 100 unit/mL (3 25 unit subcut QAM 06/23/22 06/23/22 mL) subcutaneous pen (Lantus Solostar U-100 Insulin) insulin lispro 100 unit/mL 0 sliding scale dose subcut TIDAC 06/23/22 06/23/22 subcutaneous pen lidocaine 4 % topical cream 1 appl topical BID PRN pain 06/23/22 06/23/22 metoprolol tartrate 50 mg tablet 1 tab PO BID 06/23/22 06/23/22 omeprazole 40 mg capsule,delayed 1 cap PO DAILY 06/23/22 06/23/22 release rosuvastatin 40 mg tablet 1 tab PO BEDTIME 06/23/22 06/23/22 trazodone 100 mg tablet 1 tab PO BEDTIME 06/23/22 06/23/22 ziprasidone HCl 60 mg capsule 1 cap PO BEDTIME 06/23/22 06/23/22 Previous Rx's Medication Instructions Recorded amoxicillin 875 mg-potassium 1 tab PO Q12H #14 tabs 06/25/22 clavulanate 125 mg tablet divalproex 125 mg capsule,delayed 375 mg (3 x 125 mg) PO BID #30 caps 06/25/22 release sprinkle quetiapine 100 mg tablet 100 mg PO BEDTIME #30 tabs 06/25/22 diazepam 5 mg tablet (Valium) 5 mg PO TID PRN muscle spasm #14 03/05/23 tabs naproxen 500 mg tablet (Naprosyn) 500 mg PO BID PRN pain #20 tabs 03/05/23 prednisone 20 mg tablet 60 mg (3 x 20 mg) PO DAILY 2 days 03/05/23 #6 tabs Allergies Allergy/AdvReac Type Severity Reaction Status Date / Time No Known Allergies Allergy Mild NONE Verified 03/05/23 10:47 Review of Systems Review of Systems: Constitutional : No Fever, No Chills, No Fatigue ENT/Mouth : No sore throat, No Rhinorrhea Eyes: No Eye Pain, No Swelling, No Redness Cardiovascular : No Chest Pain, No SOB, No Dyspnea on Exertion Respiratory : No Cough, No Sputum Gastrointestinal : No Nausea, No Vomiting, No Diarrhea, No abdominal Pain Genitourinary : No Dysuria, No Urinary Frequency, No Hematuria, Musculoskeletal : No joint pain, No Myalgias, No Joint Swelling Skin : No Skin Lesions, No rash Neuro : No Weakness, No Numbness, No Dizziness, positive Headache Psych : No Anxiety/Panic, No Depression Heme/Lymph: No Bruising, No Bleeding,No Lymphadenopathy Endocrine : No Polyuria, No Polydipsia All other systems reviewed and are negative [facility] Past Medical History Attestation statement: The following information was validated with the patient. Source: old records reviewed Medical History Tremor of both hands Chronic low back pain Type 2 diabetes mellitus Depression Bipolar 1 disorder Schizophrenia Family History Family History Mother HTN (hypertension) Diabetes Alzheimer disease Father Diabetes HTN (hypertension) Schizophrenia PVD (peripheral vascular disease) CAD (coronary artery disease) Bipolar 1 disorder Social History Social History Household Members: Family Housing: Apartment Do you presently have visiting nurse or other home services: No Patient Tobacco Use Status: Former Tobacco user Smoked in Last 30 Days: No Use of substances other than those prescribed or required for medical reasons: No Advance Directives: Yes Advance Directives on File: Yes Advance Directives Date on File: 09/04/23 service: No Current occupational status: unemployed Physical Exam Vital Signs: Vital Signs: Last Vital Signs Temp 98.6 F 09/04/23 17:21 Pulse 96 09/04/23 21:34 Resp 17 09/04/23 17:21 BP 108/60 09/04/23 21:34 Pulse Ox 100 09/04/23 17:21 O2 Del Method Room Air 09/04/23 17:21 BMI result Body Mass Index 23.9 Appearance: Alert. Oriented X3. No acute distress. Eyes: Pupils equal, round and reactive to light. ENT: Pharynx normal. Neck: Normal inspection. Neck supple. CVS: Normal heart rate and rhythm. Pulses normal. Respiratory: No respiratory distress. Breath sounds normal. Abdomen: Soft and nontender. Skin: Skin warm and dry. Normal skin color. Normal skin turgor. Extremities: No lower extremity edema. No calf ttp Neuro: Oriented X 3. No motor deficit. No sensory deficit. tremors mild both hands at rest Course Course Course Narrative: lipase is up has no abdominal pain and fell backwards no abdominal trauma Reevaluation(s) Reevaluation #1: still orthostatic after 2L of IVF and symptomatic laying 160 standing 108 SBP HR went from 65 to 96 at this time will admit for orthostatic hypotension with syncope Medications Administered Discontinued Medications Generic Name Dose Route Start Last Admin Trade Name Freq PRN Reason Stop Dose Admin Sodium Chloride 1,000 mls @ 999 mls/hr 09/04/23 18:15 09/04/23 19:53 Ns IV 09/04/23 19:15 Infused .Q1H1M JARED Infusion Sodium Chloride 1,000 mls @ 999 mls/hr 09/04/23 19:45 09/04/23 20:59 Ns IV 09/04/23 20:45 Infused .Q1H1M JARED Infusion Medical Decision Making Medical Decision Making [facility] Narrative: 58 yo male with PMH of HLD, GERD, pneumonia, schizoaffective disorder, sepsis from home had tremors of his body then was standing and fell backwards family states they think he had a seizure but they deny LOC but the patient states he doesn't remember hearing them and thinks he had LOC - it is vague, no CP/SOB. Is being worked up for parkinson's but has not seen a neurologist. He will need CT head/cspine, labs, EKG, ortho VS. Possible syncope in setting of standing up and given recurrent falls possibly BP drops Differential Diagnosis Differential Diagnoses: The differential diagnosis associated with the presentation includes orthostatics, seizures, syncope Admission/Observation Consideration of admission/observation: Escalation of care including admission/observation considered admit for orthostatic hypotension and syncope Lab Data [facility] Lab Attestation statement: I reviewed the patient's lab results. 09/04/23 18:12 09/04/23 18:12 Labs: Lab Results 09/04/23 Range/Units 18:12 WBC 4.6 L (4.8-10.8) X10*3/uL RBC 4.29 L (4.60-5.80) X10*6/uL Hgb 13.4 L (14.0-18.0) g/dl Hct 37.3 L (42.0-52.0) % MCV 86.9 (80.0-98.0) fL MCH 31.2 (27.0-33.0) pg MCHC 35.9 (31.0-36.0) g/dl RDW 12.6 (11.0-16.0) % Plt Count 152 L D (160-400) X10*3/uL MPV 9.9 (9.4-12.4) fL Immature Gran % (Auto) 0.2 (0.0-0.4) % Neut % (Auto) 52.1 (45-73) % Lymph % (Auto) 31.0 (20-40) % [place] % (Auto) 8.8 (2-11) % Eos % (Auto) 7.5 H (0-4) % Baso % (Auto) 0.4 (0-2) % Lymph # (Auto) 1.4 (1.2-4.9) X10*3/uL [place] # (Auto) 0.4 (0.1-1.2) X10*3/uL Eos # (Auto) 0.3 (0.0-0.4) X10*3/uL Baso # (Auto) 0.0 (0.0-0.2) X10*3/uL Abs Immat Gran (auto) 0.01 (0.00-0.03) X10*3/uL Absolute Neuts (auto) 2.4 (2.0-8.3) x10*3/uL Absolute Nucleated RBC 0.000 (0.0-0.012) X10*3/uL Nucleated RBC % (auto) 0.0 (0.0-0.2) /100WBC Sodium 140 (135-145) mmol/L Potassium 4.9 (3.3-5.1) mmol/L Chloride 105 (96-108) mmol/L Carbon Dioxide 29 (22-29) mmol/L Anion Gap 11 L (12-20) BUN 8 L (9-16) mg/dL Creatinine 1.32 (0.5-1.4) mg/dL Estim Creat Clear Calc 58.2 Estimated GFR 56 Random Glucose 279 H (60-115) mg/dL Calcium 10.1 (8.4-10.2) mg/dL Magnesium 1.8 (1.6-2.6) mg/dL Total Bilirubin 0.5 (0.0-1.0) mg/dL Direct Bilirubin 0.2 (0.0-0.5) mg/dL AST 17 (5-37) U/L ALT 21 (0-40) U/L Alkaline Phosphatase 69 (39-117) U/L Troponin I High Sens < 2.7 (<3.5-35.0) ng/L Total Protein 6.5 (6.5-8.0) g/dL Albumin 3.6 (3.5-5.0) g/dL Lipase 293 H (8-78) U/L Valproic Acid 48.5 L (50.0-100.0) mcg/mL Independent Interpretation I performed an independent interpretation of an: EKG and CT Scan (no trauma) Interpretation: Rate: 85 Rhythm: NSR [place]: left Normal P waves. Normal JAMAL. Normal QRS complex. ST T wave : no PER, nonspecific ST T wave changes qTC: normal prior studies: no acute ischemia The study has been interpreted contemporaneously by me. . Radiology Impression Discussion of test interpretation with radiology: I have reviewed the radiologist's reading. Independent Historian Clinical information obtained from an independent historian. History obtained from or confirmed by: Spouse External Record Review External record reviewed: Inpatient record Discharge Plan Discharge Clinical Impression: Recurrent falls, Orthostatic hypotension, Syncope due to orthostatic hypotension Patient Disposition: Admitted As Inpatient Prescriptions: No Action lidocaine 4 % cream 1 appl topical BID PRN (Reason: pain) omeprazole 40 mg capsule,delayed release(DR/EC) 1 cap PO DAILY acetaminophen [Mapap Arthritis Pain] 650 mg tablet extended release 650 mg PO TID hydrocortisone 1 % cream 1 appl topical BID PRN (Reason: Rash) metoprolol tartrate 50 mg tablet 1 tab PO BID gabapentin 300 mg capsule 1 cap PO TID ziprasidone HCl 60 mg capsule 1 cap PO BEDTIME insulin lispro 100 unit/mL insulin pen 0 sliding scale dose subcut TIDAC rosuvastatin 40 mg tablet 1 tab PO BEDTIME duloxetine 30 mg capsule,delayed release(DR/EC) 1 cap PO DAILY insulin glargine [Lantus Solostar U-100 Insulin] 100 unit/mL (3 mL) insulin pen 25 unit subcut QAM diclofenac sodium 1 % gel 2 g topical BID PRN (Reason: Pain) trazodone 100 mg tablet 1 tab PO BEDTIME amoxicillin-pot clavulanate 875-125 mg tablet 1 tab PO Q12H Qty: 14 0RF quetiapine 100 mg Tablet 100 mg PO BEDTIME Qty: 30 0RF divalproex 125 mg Capsule, Delayed Rel Sprinkle 375 mg PO BID Qty: 30 0RF naproxen [Naprosyn] 500 mg tablet 500 mg PO BID PRN (Reason: pain) Qty: 20 0RF prednisone 20 mg tablet 60 mg PO DAILY 2 Days Qty: 6 0RF diazepam [Valium] 5 mg tablet 5 mg PO TID PRN (Reason: muscle spasm) Qty: 14 0RF
[2023-09-04 18:16] LABS: MANUAL DIFF FLAG NO
[2023-09-04 18:19] LABS: Basophils Percent Auto 0.4 % (0-2); Eosinophils Absolute Auto 0.3 X10*3/uL (0.0-0.4); Eosinophils Percent Auto 7.5 % (0-4); Hematocrit 37.3 % (42.0-52.0); Hemoglobin 13.4 g/dl (14.0-18.0); Imm Gran Abs Auto 0.01 X10*3/uL (0.00-0.03); Imm Gran Pct Auto 0.2 % (0.0-0.4); Lymphocytes Absolute Auto 1.4 X10*3/uL (1.2-4.9); Mean Corpuscular HGB Conc 35.9 g/dl (31.0-36.0); Mean Corpuscular Hemoglobin 31.2 pg (27.0-33.0); Mean Corpuscular Volume 86.9 fL (80.0-98.0); Mean Platelet Volume 9.9 fL (9.4-12.4); Monocytes Absolute Auto 0.4 X10*3/uL (0.1-1.2); Monocytes Percent Auto 8.8 % (2-11); Neutrophils Absolute Auto 2.4 x10*3/uL (2.0-8.3); Neutrophils Percent Auto 52.1 % (45-73); Platelet Count 152 X10*3/uL (160-400); Red Blood Count 4.29 X10*6/uL (4.60-5.80); Red Cell Distribution Width 12.6 % (11.0-16.0); White Blood Count 4.6 X10*3/uL (4.8-10.8)
[2023-09-04 18:37] LABS: Alanine Aminotransferase 21 U/L (0-40); Albumin Level 3.6 g/dL (3.5-5.0); Alkaline Phosphatase 69 U/L (39-117); Anion Gap 11 (12-20); Aspartate Amino Transferase 17 U/L (5-37); Bilirubin Direct 0.2 mg/dL (0.0-0.5); Bilirubin Total 0.5 mg/dL (0.0-1.0); Blood Urea Nitrogen 8 mg/dL (9-16); Calcium 10.1 mg/dL (8.4-10.2); Carbon Dioxide 29 mmol/L (22-29); Chloride 105 mmol/L (96-108); Creatinine Clr Calc Pharmacy 58.2; Estimated Glomerular Filt Rate 56; Glucose Random 279 mg/dL (60-115); Lipase 293 U/L (8-78); Magnesium 1.8 mg/dL (1.6-2.6); Potassium 4.9 mmol/L (3.3-5.1); Sodium 140 mmol/L (135-145); Total Protein 6.5 g/dL (6.5-8.0)
[2023-09-04 18:42] LABS: Valproate 48.5 mcg/mL (50.0-100.0)
[2023-09-04] MEDS: 0.9 % Sodium Chloride 1,000 ML 999 ML IV ×2 (18:44→19:54)
[2023-09-04 18:48] LABS: Troponin-I High Sensitivity < 2.7 ng/L (<3.5-35.0)
--- NOTE | 2023-09-04 19:58 | PC.NURSE ---
this rn assumed care of pt @ 1900. family at bedside. pt calm and cooperative. pt medicated according to mar awaiting ed provider to discuss imagining results with pt
--- NOTE | 2023-09-04 22:17 | P.HPHOSP_ITS ---
History of Present Illness Date of Service: 09/04/23 Attending physician on admission: Andres Mcallister Chief Complaint: Syncopal episode Pt is a 58-year-old male with a PMH significant for?essential tremor, HTN, HLD, insulin-dependent diabetes type 2, bipolar disorder, and schizoaffective disorder who presents to the ED for evaluation of frequent falls at home. Pt is a poor historian and rather vague on details, but reports has been experiencing multiple falls at home for past 2-3 months, often when attempting to get up out of bed or from a prone position. Also endorses lightheadedness and dizziness with change in position. Unclear if any LOC during episodes. Reports eating and drinking normally. Patient says he presents today at the insistence of his sister, with whom he lives, and also because today's fall was different and like a seizure . However sister, who initially to the ED with pt, denies any seizure-like activity. Attempted to contact sister for further clarification, but she was unavailable. He denies recent changes to medications, but review of records indicates on 08/31/2023 his Cymbalta was increased from 60mg daily to 90mg daily. He denies any other acute physical complaint: no chest pain/pressure, palpitations. Denies SOB. No fever, chills, N/V, diarrhea, abdominal pain. Of note, pt was admitted to the hospital over a year prior in 05/2022 for similar complaints which were then attributed to side effects of anti-psychotic medications. When asked, pt states he does not remember this admission or being in the hospital before. In the ED pt was afebrile with elevated H are to 96, hypertensive to 160/73. Orthostatics initially positive with SBP drop of 47 and DBP of 10, and again positive after 2L IVF with SBP drop of 52 and DBP drop of 13. Labs were significant for stable H&H of 13.4/37.3, creatinine 1.32. No leukocytosis. Electrolytes WNL. Hepatic function baseline. Troponin negative. Valproic acid levels slightly low at 48.5. CT of head negative for acute intracranial hemorrhage. CT of cervical spine negative for acute fracture or subluxation. EKG showed normal sinus rhythm without significant ST elevations or depressions. Pt was treated with IVF. Pt will be admitted to the hospital for treatment and further evaluation of syncope with positive orthostatic hypotension despite resuscitation with IVF. Review of Systems 2 Review of Systems: Frequent falls at home Lightheadedness, dizziness PMFSH Medical History Tremor of both hands Chronic low back pain Type 2 diabetes mellitus Depression Bipolar 1 disorder Schizophrenia Family History Mother HTN (hypertension) Diabetes Alzheimer disease Father Diabetes HTN (hypertension) Schizophrenia PVD (peripheral vascular disease) CAD (coronary artery disease) Bipolar 1 disorder Social History Household Members: Family Housing: Apartment Do you presently have visiting nurse or other home services: No Patient Tobacco Use Status: Former Tobacco user Smoked in Last 30 Days: No Use of substances other than those prescribed or required for medical reasons: No Advance Directives: Yes Advance Directives on File: Yes Advance Directives Date on File: 09/04/23 service: No Current occupational status: unemployed Meds Allergies Allergy/AdvReac Type Severity Reaction Status Date / Time No Known Allergies Allergy Mild NONE Verified 03/05/23 10:47 Home Medications Medication Instructions Recorded Confirmed Last Taken Type diclofenac sodium 1 % topical gel 2 g topical BID PRN Pain 06/23/22 06/23/22 Unknown History duloxetine 30 mg capsule,delayed 1 cap PO DAILY 06/23/22 09/04/23 06/23/22 History release gabapentin 300 mg capsule 1 cap PO TID 06/23/22 09/04/23 06/23/22 History hydrocortisone 1 % topical cream 1 appl topical BID PRN Rash 06/23/22 09/04/23 Unknown History insulin glargine 100 unit/mL (3 25 unit subcut QAM 06/23/22 09/04/23 06/23/22 History mL) subcutaneous pen (Lantus Solostar U-100 Insulin) insulin lispro 100 unit/mL 0 sliding scale dose subcut TIDAC 06/23/22 09/04/23 06/23/22 History subcutaneous pen lidocaine 4 % topical cream 1 appl topical BID PRN pain 06/23/22 09/04/23 Unknown History metoprolol tartrate 50 mg tablet 1 tab PO BID 06/23/22 09/04/23 06/23/22 History omeprazole 40 mg capsule,delayed 1 cap PO DAILY 06/23/22 09/04/23 06/23/22 History release rosuvastatin 40 mg tablet 1 tab PO BEDTIME 06/23/22 09/04/23 06/22/22 History trazodone 100 mg tablet 1 tab PO BEDTIME 06/23/22 09/04/23 06/22/22 History ziprasidone HCl 60 mg capsule 1 cap PO BEDTIME 06/23/22 06/23/22 06/22/22 History aspirin 81 mg tablet,delayed 81 mg PO DAILY 09/04/23 09/04/23 Unknown History release dulaglutide 1.5 mg/0.5 mL mg subcut 09/04/23 09/04/23 Unknown History subcutaneous pen injector (Trulicity) metformin 500 mg tablet 500 mg PO BID 09/04/23 09/04/23 Unknown History Physical Exam 2 Vital Signs and Narrative: Vital Signs: Last Vital Signs Temp 98.6 F 09/04/23 17:21 Pulse 96 09/04/23 21:34 Resp 17 09/04/23 17:21 BP 108/60 09/04/23 21:34 Pulse Ox 100 09/04/23 17:21 O2 Del Method Room Air 09/04/23 17:21 BMI result Body Mass Index 23.9 General: AOx3, no acute distress Resp: CTA bilaterally CVS: S1, S2, RRR GI: +BS, NT, no distention Skin: Warm, dry Neuro: Cranial nerves II-XII grossly intact bilaterally. Motor grossly intact bilaterally. Moderate resting tremors of upper extremities bilaterally noted. Preserved upper and lower extremity strength. Extremities: No edema Psych: Appropriate affect Results Labs 09/04/23 18:12 09/04/23 18:12 Labs: Laboratory Results - last 24 hr 09/04/23 18:12 MCV 86.9 MCH 31.2 MCHC 35.9 RDW 12.6 Plt Count 152 L D MPV 9.9 Immature Gran % (Auto) 0.2 Neut % (Auto) 52.1 Lymph % (Auto) 31.0 [place] % (Auto) 8.8 Eos % (Auto) 7.5 H Baso % (Auto) 0.4 Lymph # (Auto) 1.4 [place] # (Auto) 0.4 Eos # (Auto) 0.3 Baso # (Auto) 0.0 Abs Immat Gran (auto) 0.01 Absolute Neuts (auto) 2.4 Absolute Nucleated RBC 0.000 Nucleated RBC % (auto) 0.0 Anion Gap 11 L Estim Creat Clear Calc 58.2 Estimated GFR 56 Random Glucose 279 H Calcium 10.1 Magnesium 1.8 Total Bilirubin 0.5 Direct Bilirubin 0.2 AST 17 ALT 21 Alkaline Phosphatase 69 Total Protein 6.5 Albumin 3.6 Lipase 293 H Valproic Acid 48.5 L Imaging Radiologist's Impressions: Impressions Cervical Spine CT 09/04/23 17:56 IMPRESSION: No intracranial hemorrhage. No cervical spine fracture. Head CT 09/04/23 17:56 IMPRESSION: No intracranial hemorrhage. No cervical spine fracture. Assessment and Plan (1) Orthostatic hypotension: Status: Acute (2) Recurrent falls: Status: Acute Plan Pt is a 58-year-old male with a PMH significant for?essential tremor, HTN, HLD, insulin-dependent diabetes type 2, bipolar disorder, and schizoaffective disorder who presents to the ED for evaluation of frequent falls at home. Pt will be admitted to the hospital for treatment and further evaluation of syncope with positive orthostatic hypotension despite resuscitation with IVF. Frequent falls Etiology unclear; differential includes Parkinson's, extrapyramidal side effects, cardiogenic, orthostatics, Cymbalta increase side effect; seizure less likely Orthostatics positive even after 2L IVF Echocardiogram Consider cardiology consult if etiology cardiogenic Repeat orthostatics tomorrow PT evaluation Monitor on telemetry Chronic tremors Etiology unclear: extrapyramidal side effects vs Parkinson's Pt apparently being worked up outpatient for Parkinson's Consider neurology consult Elevated Lipase Unclear etiology: denies heavy alcohol use, no abd pain Consider additional imaging if pt becomes symptomatic Insulin dependent diabetes Hold metformin SSI, Lantus Diabetic diet HLD Continue statin GERD PPI Mood disorder Continue home meds Full Code Attending:?Dr. Mcallister DVT Prophylaxis: Lovenox Pt will require a hospitalization of at least two nights for treatment of? with syncope with positive orthostatic hypotension despite resuscitation with IVF. Pt will be treated with close monitoring and specialist consulstion. Quality Stroke Does the patient have a stroke diagnosis?: No VTE Prior VTE?: No VTE Risk Level:: Medical - moderate - high VTE Device Contraindication: Treatment Not Indicated VTE Drug Contraindication: N/A - Med Ordered
[2023-09-05] VITALS (12 sets, daily range): BP systolic 95–179; BP diastolic 56–104; PULSE 59–101; RESP 12–20; TEMP 36–37.2; O2SAT 95–99; BMI 26.6
[2023-09-05] MEDS: Enoxaparin Sodium 40 MG/0.4 ML SYRINGE SUBCUT ×2 (00:17→21:43)
[2023-09-05] MEDS: 0.9 % Sodium Chloride Flush 3 ML SYRINGE IVFLUSH (00:18)
[2023-09-05] MEDS: 0.9 % Sodium Chloride 1,000 ML 100 ML IVCONT ×3 (00:18→19:23)
--- NOTE | 2023-09-05 00:48 | PC.NURSE ---
pt sister ghislaine can be contacted @ [phone]. pt sister and son went home , pt sister called this rn with pt med list med rec performed by this rn while pt sister on the phone to confirm. pt medicated according to mar
--- NOTE | 2023-09-05 01:30 | PC.NURSE ---
pt able to provide urine sample, urine sent down to lab, pt provided with eduardo jemal and sandwich pt a+o calm and cooperative
[2023-09-05 01:35] LABS: Appearance Urine Clear; Color Urine Yellow; Glucose Urine UA 500 mg/dL (Negative); Leukocyte Esterase Urine Negative (Negative); Nitrite Urine Negative (Negative); Urine Blood Negative (Negative); Urine Ketones Negative (Negative); Urine Protein Negative (Neg-Trace)
[2023-09-05] MEDS: Omeprazole 40 MG CAPSULE.DR PO (06:33)
--- NOTE | 2023-09-05 07:00 | CA_ITS ---
Transthoracic Echocardiogram Patient (Last, First, Middle): Dylan Manriquez, Gender: Male Date of : 1965 Age: 58 Procedure Date: 09/05/2023 Procedure Type: Transthoracic Echocardiogram Location: ER Height: 172.72 cm Weight: 71.22 kg BSA: 1.84 m2 Heart Rate: 69 bpm BP: 155 / 96 mmHg [place] Apprentice: Referring MD: Dorys CUMMINGS Symptoms: Positive orthostatics Study Quality: Adequate ECG Rhythm: Sinus Conclusions: - Normal left ventricular cavity size. There is mildly increased left ventricular wall thickness. The left ventricular systolic function is low normal. The visually estimated ejection fraction is between 50-55%. - E/E prime ratio is between 8 and 15 consistent with indeterminate filling pressures. - Normal right ventricular cavity size and systolic function. - There is no evidence of pericardial effusion. Findings Left Ventricle Normal left ventricular cavity size. There is mildly increased left ventricular wall thickness. The left ventricular systolic function is low normal. The visually estimated ejection fraction is between 50-55%. There is no evidence of regional wall motion abnormalities. Abnormal diastolic function is noted. Spectral Doppler is indicative of an impaired relaxation filling pattern. E/E prime ratio is between 8 and 15 consistent with indeterminate filling pressures. Right Ventricle Normal right ventricular cavity size and systolic function. Atria The left atrium is likely dilated. Aortic Valve The aortic valve structure and function is likely normal. There is no aortic valve stenosis. There is no aortic valve regurgitation. Mitral Valve The mitral valve appears normal. There is trace mitral valve regurgitation. There is no mitral valve stenosis. Pulmonic Valve The pulmonic valve is likely normal. There is trace pulmonic valve regurgitation. Tricuspid Valve Normal tricuspid valve structure. There is trace tricuspid valve regurgitation. Normal right atrial pressure. There is no evidence of pulmonary hypertension. Great Vessels All visible segments of the aorta are normal in size. The visualized portions of the pulmonary artery and branches are normal. Venous The inferior vena cava is normal in size and collapses greater than 50% with inspiration. Pericardium/Pleural There is no evidence of pericardial effusion. Prior Study Comparison No prior study available for comparison. Measurements 2D Linear Measurements IVSd: 1.04 0.6-0.9/0.6-1.0 cm LVIDd: 3.80 3.9-5.3/4.2-5.9 cm LVIDd Index: 2.07 2.4-3.2/2.2-3.1 cm/m2 LVIDs: 2.35 2.0-3.6 cm LVPWd: 1.12 0.7-1.1 cm LA Diam: 3.30 2.7-3.8/3.0-4.0 cm LAIDs Index: 1.79 1.5-2.3 cm/m2 LV Mass: 163.11 67-162/88-224 g LV Mass Index: 88.65 43-95/49-115 g/m2 LVOT Diam: 2.20 3.0+(-)1.3 cm Mitral Valve MV Pk E: 0.72 MV PK A: 0.81 MV Decel Time: 182.00 E/A: 0.90 E'Lateral: 7.18 E'Medial: 5.22 E/E' Med: 13.70 E/E' Lat: 10.00 PHT: 53.00 MVA PHT: 4.15 Decel Rice: 3.94 Aortic Valve AoV Pk Marvin: 0.92 AoV Mn Marvin: 0.60 AoV VTI: 0.20 AoV Pk Grad: 3.00 Aov Mn Grad: 2.00 CARLOS Cont.VTI: 3.12 LVOT LVOT Pk Marvin: 0.79 LVOT Mn Marvin: 0.54 LVOT VTI: 0.17 LVOT Pk Grad: 2.00 LVOT Mn Grad: 1.00 LVOT Diam: 2.20 LVOT Area: 3.80 Diastolic Function MV Pk E: 0.72 MV Pk A: 0.81 E/A: 0.90 E'Medial: 5.22 E/E' Med: 13.70 E' Laterial: 7.18 E/E' Lat: 10.00 Right Ventricle TAPSE (mm): 18.80 TVS' Marvin: 11.20 Tricuspid Valve TR Pk Marvin: 1.66 TR Pk Grad: 11.00 RA Press: 3.00 RVSP: 14.00 Great Vessels Aorta Sinus of Valsalva: 3.30 2.0-3.5 cm Ao Asc: 3.10 2.1-3.4 cm Pulmonary Valve PV Pk Marvin: 0.95 Peak PV Grad: 4.00 Updated in Other Vendor System with Status of Final Chago Stewart MD electronically signed on 09/06/2023 12:02:11 PM with status of Final
[2023-09-05 07:37] LABS: Glucose, Whole Blood 233 mg/dL (60-115)
--- NOTE | 2023-09-05 07:50 | P.PNIM_ITS ---
Subjective Subjective Date of Service: 09/05/23 Interval History: resting tremor Physical Exam 2 Vital Signs: Vital Signs: Last Vital Signs Temp 98.6 F 09/05/23 05:28 Pulse 77 09/05/23 07:15 Resp 20 09/05/23 07:15 BP 155/96 H 09/05/23 05:28 Pulse Ox 98 09/05/23 07:15 O2 Del Method Room Air 09/05/23 07:15 BMI result Body Mass Index 23.9 General: AO X 3, no acute distress Resp: CTA bilateral, no accessory muscles used CVS: S1,S2,RRR GI: soft, non tender, non distended Neuro: motor grossly intact, resting tremor does not diminish on intention, minimal cogwheel rigidity Psych: appropriate affect, appropriate insight Objective Data Active Medications Acetaminophen (Acetaminophen 325 Mg Tablet) 650 mg PO Q6H PRN PRN Reason: Pain, Mild (Pain Scale 1-3) Aspirin (Aspirin Enteric Coated 81 Mg Tablet.) 81 mg PO DAILY [facility] Atorvastatin Calcium (Atorvastatin Calcium 80 Mg Tablet) 80 mg PO BEDTIME [facility] Benzonatate (Benzonatate 100 Mg Capsule) 100 mg PO TID PRN PRN Reason: Cough Dextrose (Dextrose 50 % 25 Gm/50 Ml Syringe) 25 gm IVPUSH Q15M PRN; Protocol PRN Reason: per Hypoglycemia Standing Ord. Divalproex Sodium (Divalproex Sodium Sprinkles 125 Mg Cap.) 375 mg PO BID [facility] Docusate Sodium (Docusate Sodium 100 Mg Capsule) 100 mg PO DAILY PRN PRN Reason: Constipation Duloxetine HCl (Duloxetine Hcl 30 Mg Capsule.) 30 mg PO DAILY [facility] Enoxaparin Sodium (Enoxaparin Sodium 40 Mg/0.4 Ml Syringe) 40 mg SUBCUT Q24H [facility] Last Admin: 09/05/23 00:17 Dose: 40 mg Documented By: KRISSY Gabapentin (Gabapentin 300 Mg Capsule) 300 mg PO TID [facility] Glucose (Glucose Gel 15 Gm Gel..Gram.) 15 gm PO Q15M PRN; Protocol PRN Reason: per Hypoglycemia Standing Ord. Sodium Chloride (Ns) 1,000 mls @ 100 mls/hr IVCONT .Q10H [facility] Last Admin: 09/05/23 00:18 Dose: 100 mls/hr Documented By: KRISSY Insulin Glargine (Insulin Glargine,Hum.Rec.Anlog 100 Unit/Ml 10 Ml Vial) 18 unit SUBCUT DAILY [facility] Insulin Human Lispro (Insulin Lispro 100 Unit/Ml 3 Ml Vial) 0 unit SUBCUT QIDACHS [facility]; Protocol Metoprolol Tartrate (Metoprolol Tartrate 50 Mg Tablet) 50 mg PO BID [facility]; Protocol Naproxen (Naproxen 500 Mg Tablet) 500 mg PO BID PRN PRN Reason: Pain, Mild (Pain Scale 1-3) Omeprazole (Omeprazole 40 Mg Capsule.Dr) 40 mg PO DAILY@0630 [facility] Last Admin: 09/05/23 06:33 Dose: 40 mg Documented By: KRISSY Quetiapine Fumarate (Quetiapine Fumarate 100 Mg Tablet) 100 mg PO BEDTIME [facility] Senna (Sennosides 8.6 Mg Tablet) 17.2 mg PO BEDTIME PRN PRN Reason: Constipation Sodium Chloride (0.9 % Sodium Chloride Flush 3 Ml Syringe) 3 ml IVFLUSH QSHIFT [facility] Last Admin: 09/05/23 00:18 Dose: 3 ml Documented By: KRISSY Trazodone HCl (Trazodone Hcl 100 Mg Tablet) 100 mg PO BEDTIME [facility] Labs 09/04/23 18:12 09/04/23 18:12 Labs: Laboratory Results - last 24 hr 09/04/23 09/05/23 09/05/23 18:12 01:26 07:11 MCV 86.9 MCH 31.2 MCHC 35.9 RDW 12.6 Plt Count 152 L D MPV 9.9 Immature Gran % (Auto) 0.2 Neut % (Auto) 52.1 Lymph % (Auto) 31.0 [place] % (Auto) 8.8 Eos % (Auto) 7.5 H Baso % (Auto) 0.4 Lymph # (Auto) 1.4 Perkins # (Auto) 0.4 Eos # (Auto) 0.3 Baso # (Auto) 0.0 Abs Immat Gran (auto) 0.01 Absolute Neuts (auto) 2.4 Absolute Nucleated RBC 0.000 Nucleated RBC % (auto) 0.0 Anion Gap 11 L Estim Creat Clear Calc 58.2 Estimated GFR 56 POC Glucose 233 H Random Glucose 279 H Calcium 10.1 Magnesium 1.8 Total Bilirubin 0.5 Direct Bilirubin 0.2 AST 17 ALT 21 Alkaline Phosphatase 69 Total Protein 6.5 Albumin 3.6 Lipase 293 H Urine Color Yellow Urine Appearance Clear Urine pH 6.0 Ur Specific [place] 1.010 Urine Protein Negative Urine Glucose (UA) 500 H Urine Ketones Negative Urine Blood Negative Urine Nitrite Negative Ur Leukocyte Esterase Negative Valproic Acid 48.5 L Assessment and Plan (1) Syncope due to orthostatic hypotension: Status: Acute Plan 58M PMH essential tremor, htn, hld, dm, schizoaffective presented with syncope syncope due to orthostatic hypotension ivf, monitor orthostatics rule out other etiology check echo, monitor on tele PT eval essential tremor with changing tremor symptoms ? second tremor syndrome neuro eval DM insulin hld statin gerd ppi schizoaffective seroquel dvt prophylaxis - lovenox full code reason for continued hospitalization: still orthostatic Quality Stroke Does the patient have a stroke diagnosis?: No VTE Prior VTE?: No VTE Risk Level:: Medical - moderate - high VTE Device Contraindication: Treatment Not Indicated VTE Drug Contraindication: N/A - Med Ordered
[2023-09-05] MEDS: Divalproex Sodium Sprinkles 125 MG CAP.DR.SPR 375 MG PO ×2 (08:39→21:42)
[2023-09-05] MEDS: Metoprolol Tartrate 50 MG TABLET PO ×2 (08:39→21:43)
[2023-09-05] MEDS: Gabapentin 300 MG CAPSULE PO ×3 (08:39→21:43)
[2023-09-05] MEDS: DULoxetine HCl 30 MG CAPSULE.DR PO (08:39)
[2023-09-05] MEDS: Aspirin Enteric Coated 81 MG TABLET.DR PO (08:39)
[2023-09-05] MEDS: Insulin Glargine,Hum.rec.anlog 100 UNIT/ML 10 ML VIAL 18 UNIT SUBCUT (08:40)
[2023-09-05] MEDS: Insulin Lispro 100 UNIT/ML 3 ML VIAL SUBCUT ×2 (08:40→19:08)
--- NOTE | 2023-09-05 08:53 | MHC.CM.PN ---
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 CM ATTEMPTED TO REACH PTS SISTER/HCP, DENG MATOS [phone] TO COMPLETE BOMB TECHNICIAN VM MESSAGE LEFT REQUESTING A RETURN CALL PER EMR, PT LIVES WITH HIS SISTER WHO IS HIS PAID CAREGIVER THROUGH [facility]. HE HAS A HCP AND MOLST ON FILE NO PCP ON FILE.
--- NOTE | 2023-09-05 09:54 | PC.NURSE ---
Seen by physical therapy
--- NOTE | 2023-09-05 10:37 | PHA.MEDREC ---
Pharmacy Consult ? Medication Reconciliation Pharmacy has completed the medication reconciliation. Spoke to patient and verified medication list.
--- NOTE | 2023-09-05 12:08 | PM.CNCAR ---
History of Present Illness History of Present Illness Date of Service: 09/05/23 Requesting physician: Sj Sigala Chief complaint: Syncopal episode, positive orthostatics Narrative: [age] gentleman presenting for syncope due to orthostatic hypotension. He has background history of diabetes and peripheral neuropathy. He was a heavy drinker has a 5 years ago. He said that he has felt dizziness previously but this time he does not remember. He has a vague historian. Recently had some change in his medication including Cymbalta which was increased from 60-90 mg. He was orthostatic in the ER with systolic blood pressure dropping by 47 mm Hg on standing. Blood pressure today is lower and he is slightly more tachycardic. 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 He said he has stop using them on his own. As mentioned quite vague historian and has background of alcoholism. [facility] Past Medical History Medical History Tremor of both hands Chronic low back pain Type 2 diabetes mellitus Depression Bipolar 1 disorder Schizophrenia Family History Family History Mother HTN (hypertension) Diabetes Alzheimer disease Father Diabetes HTN (hypertension) Schizophrenia PVD (peripheral vascular disease) CAD (coronary artery disease) Bipolar 1 disorder Social History Social History Household Members: Family Housing: Apartment Do you presently have visiting nurse or other home services: No Patient Tobacco Use Status: Former Tobacco user Smoked in Last 30 Days: No Use of substances other than those prescribed or required for medical reasons: No Advance Directives: Yes Advance Directives on File: Yes Advance Directives Date on File: 09/04/23 service: No Current occupational status: unemployed Meds Allergies Allergy/AdvReac Type Severity Reaction Status Date / Time No Known Allergies Allergy Mild NONE Verified 03/05/23 10:47 Active Medications: Current Medications Acetaminophen (Acetaminophen 325 Mg Tablet) 650 mg PO Q6H PRN PRN Reason: Pain, Mild (Pain Scale 1-3) Aspirin (Aspirin Enteric Coated 81 Mg Tablet.) 81 mg PO DAILY [facility] Last Admin: 09/05/23 08:39 Dose: 81 mg Atorvastatin Calcium (Atorvastatin Calcium 80 Mg Tablet) 80 mg PO BEDTIME [facility] Benzonatate (Benzonatate 100 Mg Capsule) 100 mg PO TID PRN PRN Reason: Cough Dextrose (Dextrose 50 % 25 Gm/50 Ml Syringe) 25 gm IVPUSH Q15M PRN; Protocol PRN Reason: per Hypoglycemia Standing Ord. Divalproex Sodium (Divalproex Sodium Sprinkles 125 Mg Cap.) 375 mg PO BID [facility] Last Admin: 09/05/23 08:39 Dose: 375 mg Docusate Sodium (Docusate Sodium 100 Mg Capsule) 100 mg PO DAILY PRN PRN Reason: Constipation Duloxetine HCl (Duloxetine Hcl 30 Mg Capsule.) 30 mg PO DAILY [facility] Last Admin: 09/05/23 08:39 Dose: 30 mg Enoxaparin Sodium (Enoxaparin Sodium 40 Mg/0.4 Ml Syringe) 40 mg SUBCUT Q24H [facility] Last Admin: 09/05/23 00:17 Dose: 40 mg Gabapentin (Gabapentin 300 Mg Capsule) 300 mg PO TID [facility] Last Admin: 09/05/23 08:39 Dose: 300 mg Glucose (Glucose Gel 15 Gm Gel..Gram.) 15 gm PO Q15M PRN; Protocol PRN Reason: per Hypoglycemia Standing Ord. Sodium Chloride (Ns) 1,000 mls @ 100 mls/hr IVCONT .Q10H [facility] Last Admin: 09/05/23 10:03 Dose: 100 mls/hr Insulin Glargine (Insulin Glargine,Hum.Rec.Anlog 100 Unit/Ml 10 Ml Vial) 18 unit SUBCUT DAILY [facility] Last Admin: 09/05/23 08:40 Dose: 18 unit Insulin Human Lispro (Insulin Lispro 100 Unit/Ml 3 Ml Vial) 0 unit SUBCUT QIDACHS [facility]; Protocol Last Admin: 09/05/23 08:40 Dose: 2 unit Metoprolol Tartrate (Metoprolol Tartrate 50 Mg Tablet) 50 mg PO BID [facility]; Protocol Last Admin: 09/05/23 08:39 Dose: 50 mg Naproxen (Naproxen 500 Mg Tablet) 500 mg PO BID PRN PRN Reason: Pain, Mild (Pain Scale 1-3) Omeprazole (Omeprazole 40 Mg Capsule.) 40 mg PO DAILY@0630 [facility] Last Admin: 09/05/23 06:33 Dose: 40 mg Quetiapine Fumarate (Quetiapine Fumarate 100 Mg Tablet) 100 mg PO BEDTIME [facility] Senna (Sennosides 8.6 Mg Tablet) 17.2 mg PO BEDTIME PRN PRN Reason: Constipation Sodium Chloride (0.9 % Sodium Chloride Flush 3 Ml Syringe) 3 ml IVFLUSH QSHIFT [facility] Last Admin: 09/05/23 08:41 Dose: Not Given Trazodone HCl (Trazodone Hcl 100 Mg Tablet) 100 mg PO BEDTIME [facility] Home Medications Medication Instructions Recorded Confirmed Last Taken Type diclofenac sodium 1 % topical gel 2 g topical BID PRN Pain 06/23/22 09/05/23 Unknown History duloxetine 30 mg capsule,delayed 30 mg PO DAILY 06/23/22 09/05/23 09/04/23 History release gabapentin 300 mg capsule 1 cap PO TID 06/23/22 09/05/23 09/04/23 History insulin glargine 100 unit/mL (3 25 unit subcut QAM 06/23/22 09/05/23 09/04/23 History mL) subcutaneous pen (Lantus Solostar U-100 Insulin) insulin lispro 100 unit/mL 0 sliding scale dose subcut TIDAC 06/23/22 09/04/23 06/23/22 History subcutaneous pen metoprolol tartrate 50 mg tablet 1 tab PO BID 06/23/22 09/05/23 09/04/23 History omeprazole 40 mg capsule,delayed 1 cap PO DAILY 06/23/22 09/05/23 09/04/23 History release rosuvastatin 40 mg tablet 1 tab PO BEDTIME 06/23/22 09/05/23 09/04/23 History trazodone 100 mg tablet 1 tab PO BEDTIME 06/23/22 09/05/23 09/04/23 History aspirin 81 mg tablet,delayed 81 mg PO DAILY 09/04/23 09/05/23 09/04/23 History release dulaglutide 1.5 mg/0.5 mL 1.5 mg subcut QWEEK 09/04/23 09/05/23 Unknown History subcutaneous pen injector (Trulicity) metformin 500 mg tablet 500 mg PO BID 09/04/23 09/05/23 09/04/23 History acetaminophen 650 mg 650 mg PO TID 09/05/23 09/05/23 Unknown History tablet,extended release duloxetine 60 mg capsule,delayed 60 mg PO DAILY 09/05/23 09/05/23 09/04/23 History release sprinkle Physical Exam Vital Signs: Vital Signs: Last Vital Signs Temp 98.4 F 09/05/23 09:07 Pulse 101 H 09/05/23 09:14 Resp 14 09/05/23 09:07 BP 95/64 09/05/23 09:14 Pulse Ox 97 09/05/23 09:07 O2 Del Method Room Air 09/05/23 09:07 BMI result Body Mass Index 23.9 GENERAL APPEARANCE: in no acute distress, pleasant. NECK: no carotid bruit, no jugular venous distention. SKIN: no suspicious lesions, warm and dry. HEART: no murmurs, regular rate and rhythm. LUNGS: clear to auscultation bilaterally. ABDOMEN: soft, nontender. EXTREMITIES: no edema. PERIPHERAL PULSES: equal. NEUROLOGIC: Tremors affecting right side of the body. Objective Labs and Meds 09/04/23 18:12 09/04/23 18:12 Lab results: Laboratory Results - last 24 hr 09/04/23 09/05/23 09/05/23 18:12 01:26 07:11 WBC 4.6 L RBC 4.29 L Hgb 13.4 L Hct 37.3 L MCV 86.9 MCH 31.2 MCHC 35.9 RDW 12.6 Plt Count 152 L D MPV 9.9 Immature Gran % (Auto) 0.2 Neut % (Auto) 52.1 Lymph % (Auto) 31.0 [place] % (Auto) 8.8 Eos % (Auto) 7.5 H Baso % (Auto) 0.4 Lymph # (Auto) 1.4 George # (Auto) 0.4 Eos # (Auto) 0.3 Baso # (Auto) 0.0 Abs Immat Gran (auto) 0.01 Absolute Neuts (auto) 2.4 Absolute Nucleated RBC 0.000 Nucleated RBC % (auto) 0.0 Sodium 140 Potassium 4.9 Chloride 105 Carbon Dioxide 29 Anion Gap 11 L BUN 8 L Creatinine 1.32 Estim Creat Clear Calc 58.2 Estimated GFR 56 POC Glucose 233 H Random Glucose 279 H Calcium 10.1 Magnesium 1.8 Total Bilirubin 0.5 Direct Bilirubin 0.2 AST 17 ALT 21 Alkaline Phosphatase 69 Troponin I High Sens < 2.7 Total Protein 6.5 Albumin 3.6 Lipase 293 H Urine Color Yellow Urine Appearance Clear Urine pH 6.0 Ur Specific [place] 1.010 Urine Protein Negative Urine Glucose (UA) 500 H Urine Ketones Negative Urine Blood Negative Urine Nitrite Negative Ur Leukocyte Esterase Negative Valproic Acid 48.5 L Imaging Radiologist's impression: Impressions Cervical Spine CT 09/04/23 17:56 IMPRESSION: No intracranial hemorrhage. No cervical spine fracture. Head CT 09/04/23 17:56 IMPRESSION: No intracranial hemorrhage. No cervical spine fracture. Assessment and Plan (1) Syncope due to orthostatic hypotension: Status: Acute Plan [age] year gentleman with syncope in the setting of orthostasis. Blood pressure currently is low and he is slightly more tachycardic. Recommend fluid resuscitation and reassessment of orthostatic vital signs. AFib with adequate resuscitation the blood pressure continues to be labile then he may have autonomic issues due to diabetes and previous use of alcohol. He does have peripheral neuropathy. He should have a morning cortisol checked to make sure does not have adrenal insufficiency. Currently I think we should resuscitate him and not label him as autonomic dysfunction. Thank you for allowing me to participate in the care of your patient. Please feel free to contact me if you have any questions. Procedures Date of Service Date of Service: 09/05/23
--- NOTE | 2023-09-05 12:31 | PM.NEUROCN ---
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 He was not seeing any and neurologist at this time. He said that he has been admitted on psychiatric floor many times. He was not having any cold or flu-like illness or numbness or tingling or any significant pain. Review of Systems Review of Systems: No recent cold or flu-like illness PMFSH Past Medical History Medical History Tremor of both hands Chronic low back pain Type 2 diabetes mellitus Depression Bipolar 1 disorder Schizophrenia Family History Family History Mother HTN (hypertension) Diabetes Alzheimer disease Father Diabetes HTN (hypertension) Schizophrenia PVD (peripheral vascular disease) CAD (coronary artery disease) Bipolar 1 disorder Social History Social History Household Members: Family Housing: Apartment Do you presently have visiting nurse or other home services: No Patient Tobacco Use Status: Former Tobacco user Smoked in Last 30 Days: No Use of substances other than those prescribed or required for medical reasons: No Advance Directives: Yes Advance Directives on File: Yes Advance Directives Date on File: 09/04/23 service: No Current occupational status: unemployed Meds Allergies Allergy/AdvReac Type Severity Reaction Status Date / Time No Known Allergies Allergy Mild NONE Verified 03/05/23 10:47 Active Medications: Current Medications Acetaminophen (Acetaminophen 325 Mg Tablet) 650 mg PO Q6H PRN PRN Reason: Pain, Mild (Pain Scale 1-3) Aspirin (Aspirin Enteric Coated 81 Mg Tablet.) 81 mg PO DAILY [facility] Last Admin: 09/05/23 08:39 Dose: 81 mg Atorvastatin Calcium (Atorvastatin Calcium 80 Mg Tablet) 80 mg PO BEDTIME [facility] Benzonatate (Benzonatate 100 Mg Capsule) 100 mg PO TID PRN PRN Reason: Cough Dextrose (Dextrose 50 % 25 Gm/50 Ml Syringe) 25 gm IVPUSH Q15M PRN; Protocol PRN Reason: per Hypoglycemia Standing Ord. Divalproex Sodium (Divalproex Sodium Sprinkles 125 Mg Cap) 375 mg PO BID [facility] Last Admin: 09/05/23 08:39 Dose: 375 mg Docusate Sodium (Docusate Sodium 100 Mg Capsule) 100 mg PO DAILY PRN PRN Reason: Constipation Duloxetine HCl (Duloxetine Hcl 30 Mg Capsule.) 30 mg PO DAILY [facility] Last Admin: 09/05/23 08:39 Dose: 30 mg Enoxaparin Sodium (Enoxaparin Sodium 40 Mg/0.4 Ml Syringe) 40 mg SUBCUT Q24H [facility] Last Admin: 09/05/23 00:17 Dose: 40 mg Gabapentin (Gabapentin 300 Mg Capsule) 300 mg PO TID [facility] Last Admin: 09/05/23 08:39 Dose: 300 mg Glucose (Glucose Gel 15 Gm Gel..Gram.) 15 gm PO Q15M PRN; Protocol PRN Reason: per Hypoglycemia Standing Ord. Sodium Chloride (Ns) 1,000 mls @ 100 mls/hr IVCONT .Q10H [facility] Last Admin: 09/05/23 10:03 Dose: 100 mls/hr Insulin Glargine (Insulin Glargine,Hum.Rec.Anlog 100 Unit/Ml 10 Ml Vial) 18 unit SUBCUT DAILY [facility] Last Admin: 09/05/23 08:40 Dose: 18 unit Insulin Human Lispro (Insulin Lispro 100 Unit/Ml 3 Ml Vial) 0 unit SUBCUT QIDACHS [facility]; Protocol Last Admin: 09/05/23 08:40 Dose: 2 unit Metoprolol Tartrate (Metoprolol Tartrate 50 Mg Tablet) 50 mg PO BID [facility]; Protocol Last Admin: 09/05/23 08:39 Dose: 50 mg Naproxen (Naproxen 500 Mg Tablet) 500 mg PO BID PRN PRN Reason: Pain, Mild (Pain Scale 1-3) Omeprazole (Omeprazole 40 Mg Capsule.) 40 mg PO DAILY@0630 [facility] Last Admin: 09/05/23 06:33 Dose: 40 mg Quetiapine Fumarate (Quetiapine Fumarate 100 Mg Tablet) 100 mg PO BEDTIME [facility] Senna (Sennosides 8.6 Mg Tablet) 17.2 mg PO BEDTIME PRN PRN Reason: Constipation Sodium Chloride (0.9 % Sodium Chloride Flush 3 Ml Syringe) 3 ml IVFLUSH QSHIFT [facility] Last Admin: 12/11/23 08:41 Dose: Not Given Trazodone HCl (Trazodone Hcl 100 Mg Tablet) 100 mg PO BEDTIME [facility] Home Medications Medication Instructions Recorded Confirmed Last Taken Type diclofenac sodium 1 % topical gel 2 g topical BID PRN Pain 06/23/22 09/05/23 Unknown History duloxetine 30 mg capsule,delayed 30 mg PO DAILY 06/23/22 09/05/23 09/04/23 History release gabapentin 300 mg capsule 1 cap PO TID 06/23/22 09/05/23 09/04/23 History insulin glargine 100 unit/mL (3 25 unit subcut QAM 06/23/22 09/05/23 09/04/23 History mL) subcutaneous pen (Lantus Solostar U-100 Insulin) insulin lispro 100 unit/mL 0 sliding scale dose subcut TIDAC 06/23/22 09/04/23 06/23/22 History subcutaneous pen metoprolol tartrate 50 mg tablet 1 tab PO BID 06/23/22 09/05/23 09/04/23 History omeprazole 40 mg capsule,delayed 1 cap PO DAILY 06/23/22 09/05/23 09/04/23 History release rosuvastatin 40 mg tablet 1 tab PO BEDTIME 06/23/22 09/05/23 09/04/23 History trazodone 100 mg tablet 1 tab PO BEDTIME 06/23/22 09/05/23 09/04/23 History aspirin 81 mg tablet,delayed 81 mg PO DAILY 09/04/23 09/05/23 09/04/23 History release dulaglutide 1.5 mg/0.5 mL 1.5 mg subcut QWEEK 09/04/23 09/05/23 Unknown History subcutaneous pen injector (Trulicity) metformin 500 mg tablet 500 mg PO BID 09/04/23 09/05/23 09/04/23 History acetaminophen 650 mg 650 mg PO TID 09/05/23 09/05/23 Unknown History tablet,extended release duloxetine 60 mg capsule,delayed 60 mg PO DAILY 09/05/23 09/05/23 09/04/23 History release sprinkle Physical Exam Vital Signs: Vital Signs: Last Vital Signs Temp 98.4 F 09/05/23 09:07 Pulse 101 H 09/05/23 09:14 Resp 14 09/05/23 09:07 BP 95/64 09/05/23 09:14 Pulse Ox 97 09/05/23 09:07 O2 Del Method Room Air 09/05/23 09:07 BMI result Body Mass Index 23.9 Neuro: Other: He is alert and awake with normal spontaneity of speech fluency comprehension and affect. Face is symmetrical. Gaze is full. Visual christopher are full. Mild bilateral hand resting tremor and postural tremor is noted. Deep tendon reflexes are trace to absent with flat plantars. Results Labs 09/04/23 18:12 09/04/23 18:12 Labs: Short CBC 09/04/23 Range/Units 18:12 WBC 4.6 L (4.8-10.8) X10*3/uL Hgb 13.4 L (14.0-18.0) g/dl Hct 37.3 L (42.0-52.0) % Plt Count 152 L D (160-400) X10*3/uL BMP 09/04/23 18:12 Sodium 140 Potassium 4.9 Chloride 105 Carbon Dioxide 29 BUN 8 L Creatinine 1.32 Calcium 10.1 Liver Function 09/04/23 Range/Units 18:12 Total Bilirubin 0.5 (0.0-1.0) mg/dL Direct Bilirubin 0.2 (0.0-0.5) mg/dL AST 17 (5-37) U/L ALT 21 (0-40) U/L Alkaline Phosphatase 69 (39-117) U/L Albumin 3.6 (3.5-5.0) g/dL Urine 09/05/23 Range/Units 01:26 Urine Color Yellow Urine Appearance Clear Urine pH 6.0 (5.0-9.0) Ur Specific [place] 1.010 (1.005-1.025) Urine Protein Negative (Neg-Trace) mg/dL Urine Glucose (UA) 500 H (Negative) mg/dL Head CT did not reveal any significant abnormality more than mild atrophy. Assessment and Plan (1) Recurrent falls: Status: Acute 58 years old man with mild bilateral mixed tremor. He was here with complain of tremor and loss of balance. Examination also suggested neuropathy. This is probably chronic related to neuropathy, which might be diabetic in nature. Routine EMG nerve conduction study is recommended. Procedures Date of Service Date of Service: 09/05/23
[2023-09-05 13:20] LABS: Glucose, Whole Blood 147 mg/dL (60-115)
[2023-09-05 20:27] LABS: Glucose, Whole Blood 205 mg/dL (60-115)
[2023-09-05] MEDS: QUEtiapine Fumarate 100 MG TABLET PO (21:43)
[2023-09-05] MEDS: Atorvastatin Calcium 80 MG TABLET PO (21:43)
[2023-09-05] MEDS: traZODone HCL 100 MG TABLET PO (21:43)
[2023-09-06] VITALS (7 sets, daily range): BP systolic 102–132; BP diastolic 60–86; PULSE 75–90; RESP 18–20; TEMP 36.1–36.7; O2SAT 95–99
[2023-09-06] MEDS: Omeprazole 40 MG CAPSULE.DR PO (05:20)
[2023-09-06] MEDS: 0.9 % Sodium Chloride 1,000 ML 100 ML IVCONT ×2 (05:21→16:39)
[2023-09-06 07:15] LABS: Glucose, Whole Blood 149 mg/dL (60-115)
[2023-09-06] MEDS: Metoprolol Tartrate 50 MG TABLET PO ×2 (07:50→20:46)
[2023-09-06] MEDS: Insulin Glargine,Hum.rec.anlog 100 UNIT/ML 10 ML VIAL 18 UNIT SUBCUT (07:51)
[2023-09-06] MEDS: Divalproex Sodium Sprinkles 125 MG CAP.DR.SPR 375 MG PO ×2 (07:51→20:46)
[2023-09-06] MEDS: Gabapentin 300 MG CAPSULE PO ×3 (07:51→20:46)
[2023-09-06] MEDS: Aspirin Enteric Coated 81 MG TABLET.DR PO (07:51)
[2023-09-06] MEDS: DULoxetine HCl 30 MG CAPSULE.DR PO (07:51)
[2023-09-06 07:52] LABS: Hematocrit 36.6 % (42.0-52.0); Hemoglobin 12.8 g/dl (14.0-18.0); Mean Corpuscular Hemoglobin 30.7 pg (27.0-33.0); Mean Corpuscular Volume 87.8 fL (80.0-98.0); Mean Platelet Volume 10.9 fL (9.4-12.4); Platelet Count 134 X10*3/uL (160-400); Red Blood Count 4.17 X10*6/uL (4.60-5.80); Red Cell Distribution Width 12.7 % (11.0-16.0); White Blood Count 4.5 X10*3/uL (4.8-10.8)
[2023-09-06 08:05] LABS: Anion Gap 11 (12-20); Blood Urea Nitrogen 12 mg/dL (9-16); Carbon Dioxide 27 mmol/L (22-29); Chloride 107 mmol/L (96-108); Creatinine Clr Calc Pharmacy 73.9; Estimated Glomerular Filt Rate > 60; Glucose Fasting 161 mg/dL (60-99); Sodium 141 mmol/L (135-145)
[2023-09-06 08:21] LABS: Cortisol Random 6.1 ug/dL
--- NOTE | 2023-09-06 09:27 | P.PNIM_ITS ---
Subjective Subjective Date of Service: 09/06/23 Interval History: still dizzy on standing Physical Exam 2 Vital Signs: Vital Signs: Last Vital Signs Temp 97.4 F 09/06/23 07:16 Pulse 75 09/06/23 07:16 Resp 18 09/06/23 07:16 BP 102/68 09/06/23 07:16 Pulse Ox 96 09/06/23 07:16 O2 Del Method Room Air 09/06/23 07:16 BMI result Body Mass Index 26.6 Neuro: Other: He is alert and awake with normal spontaneity of speech fluency comprehension and affect. Face is symmetrical. Gaze is full. Visual christopher are full. Mild bilateral hand resting tremor and postural tremor is noted. Deep tendon reflexes are trace to absent with flat plantars. Objective Data Active Medications Acetaminophen (Acetaminophen 325 Mg Tablet) 650 mg PO Q6H PRN PRN Reason: Pain, Mild (Pain Scale 1-3) Aspirin (Aspirin Enteric Coated 81 Mg Tablet.) 81 mg PO DAILY [facility] Last Admin: 09/06/23 07:51 Dose: 81 mg Documented By: LYNESY Atorvastatin Calcium (Atorvastatin Calcium 80 Mg Tablet) 80 mg PO BEDTIME [facility] Last Admin: 09/05/23 21:43 Dose: 80 mg Documented By: SYLVIA Benzonatate (Benzonatate 100 Mg Capsule) 100 mg PO TID PRN PRN Reason: Cough Dextrose (Dextrose 50 % 25 Gm/50 Ml Syringe) 25 gm IVPUSH Q15M PRN; Protocol PRN Reason: per Hypoglycemia Standing Ord. Divalproex Sodium (Divalproex Sodium Sprinkles 125 Mg Cap.) 375 mg PO BID [facility] Last Admin: 09/06/23 07:51 Dose: 375 mg Documented By: LYNSEY Docusate Sodium (Docusate Sodium 100 Mg Capsule) 100 mg PO DAILY PRN PRN Reason: Constipation Duloxetine HCl (Duloxetine Hcl 30 Mg Capsule.) 30 mg PO DAILY [facility] Last Admin: 09/06/23 07:51 Dose: 30 mg Documented By: LYNSEY Enoxaparin Sodium (Enoxaparin Sodium 40 Mg/0.4 Ml Syringe) 40 mg SUBCUT Q24H [facility] Last Admin: 09/05/23 21:43 Dose: 40 mg Documented By: SYLVIA Gabapentin (Gabapentin 300 Mg Capsule) 300 mg PO TID [facility] Last Admin: 09/06/23 07:51 Dose: 300 mg Documented By: LYNSEY Glucose (Glucose Gel 15 Gm Gel..Gram.) 15 gm PO Q15M PRN; Protocol PRN Reason: per Hypoglycemia Standing Ord. Sodium Chloride (Ns) 1,000 mls @ 100 mls/hr IVCONT .Q10H [facility] Last Admin: 09/06/23 05:21 Dose: 100 mls/hr Documented By: SYLVIA Insulin Glargine (Insulin Glargine,Hum.Rec.Anlog 100 Unit/Ml 10 Ml Vial) 18 unit SUBCUT DAILY [facility] Last Admin: 09/06/23 07:51 Dose: 18 unit Documented By: LYNSEY Insulin Human Lispro (Insulin Lispro 100 Unit/Ml 3 Ml Vial) 0 unit SUBCUT QIDACHS [facility]; Protocol Last Admin: 09/06/23 07:41 Dose: Not Given Documented By: LYNSEY Non-Admin Reason: No Insulin Coverage Metoprolol Tartrate (Metoprolol Tartrate 50 Mg Tablet) 50 mg PO BID [facility]; Protocol Last Admin: 09/06/23 07:50 Dose: 50 mg Documented By: LYNSEY Naproxen (Naproxen 500 Mg Tablet) 500 mg PO BID PRN PRN Reason: Pain, Mild (Pain Scale 1-3) Omeprazole (Omeprazole 40 Mg Capsule.Dr) 40 mg PO DAILY@0630 [facility] Last Admin: 09/06/23 05:20 Dose: 40 mg Documented By: SYLVIA Quetiapine Fumarate (Quetiapine Fumarate 100 Mg Tablet) 100 mg PO BEDTIME [facility] Last Admin: 09/05/23 21:43 Dose: 100 mg Documented By: SYLVIA Senna (Sennosides 8.6 Mg Tablet) 17.2 mg PO BEDTIME PRN PRN Reason: Constipation Sodium Chloride (0.9 % Sodium Chloride Flush 3 Ml Syringe) 3 ml IVFLUSH QSHIFT [facility] Last Admin: 09/06/23 07:52 Dose: Not Given Documented By: LYNSEY Non-Admin Reason: IV Running Trazodone HCl (Trazodone Hcl 100 Mg Tablet) 100 mg PO BEDTIME [facility] Last Admin: 09/05/23 21:43 Dose: 100 mg Documented By: HO.BELANGB Labs 09/06/23 06:31 09/06/23 06:31 Labs: Laboratory Results - last 24 hr 09/05/23 09/05/23 09/06/23 13:16 19:02 06:31 MCV 87.8 MCH 30.7 MCHC 35.0 RDW 12.7 Plt Count 134 L MPV 10.9 Absolute Nucleated RBC 0.000 Nucleated RBC % (auto) 0.0 Anion Gap 11 L Estim Creat Clear Calc 73.9 Estimated GFR > 60 POC Glucose 147 H 205 H Fasting Glucose 161 H Calcium 9.0 D Random Cortisol 6.1 09/06/23 07:08 MCV MCH MCHC RDW Plt Count MPV Absolute Nucleated RBC Nucleated RBC % (auto) Anion Gap Estim Creat Clear Calc Estimated GFR POC Glucose 149 H Fasting Glucose Calcium Random Cortisol Assessment and Plan (1) Syncope due to orthostatic hypotension: Status: Acute Plan 58M PMH essential tremor, htn, hld, dm, schizoaffective presented with syncope syncope due to orthostatic hypotension ivf, monitor orthostatics follow up echo, monitor on tele taper off cymbalta PT appreciated - home vs str (TBD) am cortisol WNL DM insulin hld statin gerd ppi schizoaffective seroquel dvt prophylaxis - lovenox full code reason for continued hospitalization: still orthostatic Quality Stroke Does the patient have a stroke diagnosis?: No VTE Prior VTE?: No VTE Risk Level:: Medical - moderate - high VTE Device Contraindication: Treatment Not Indicated VTE Drug Contraindication: N/A - Med Ordered
--- NOTE | 2023-09-06 10:18 | MHC.CM.PN ---
Patient is part of [facility]; CM spoke with Portillo from [facility] @ [phone]. PT is recommending home PT and Patient is likely going to need RN visits r/t his BP. Portillo has indicated that whatever services are needed will be provided to the Patient through [facility]; Portillo will just need to be notified of the dc date and dc summary faxed to him @ [phone].CM will follow.
--- NOTE | 2023-09-06 10:48 | P.PNCA_ITS ---
Subjective Subjective Date of Service: 09/06/23 Interval history: Seen examined at bedside. He said he stood up today and had some dizziness. Physical Exam Vital Signs: Last Vital Signs Temp 97.4 F 09/06/23 07:16 Pulse 75 09/06/23 07:16 Resp 18 09/06/23 07:16 BP 102/68 09/06/23 07:16 Pulse Ox 96 09/06/23 07:16 O2 Del Method Room Air 09/06/23 07:16 BMI result Body Mass Index 26.6 GENERAL APPEARANCE: in no acute distress, pleasant. NECK: no carotid bruit, no jugular venous distention. SKIN: no suspicious lesions, warm and dry. HEART: no murmurs, regular rate and rhythm. LUNGS: clear to auscultation bilaterally. ABDOMEN: soft, nontender. EXTREMITIES: no edema. PERIPHERAL PULSES: equal. NEUROLOGIC: Tremors affecting right side of the body. Objective Labs and Meds 09/06/23 06:31 09/06/23 06:31 Lab results: Laboratory Results - last 24 hr 09/05/23 09/05/23 09/06/23 13:16 19:02 06:31 WBC 4.5 L RBC 4.17 L Hgb 12.8 L Hct 36.6 L MCV 87.8 MCH 30.7 MCHC 35.0 RDW 12.7 Plt Count 134 L MPV 10.9 Absolute Nucleated RBC 0.000 Nucleated RBC % (auto) 0.0 Sodium 141 Potassium 4.0 Chloride 107 Carbon Dioxide 27 Anion Gap 11 L BUN 12 Creatinine 1.04 Estim Creat Clear Calc 73.9 Estimated GFR > 60 POC Glucose 147 H 205 H Fasting Glucose 161 H Calcium 9.0 D Random Cortisol 6.1 09/06/23 07:08 WBC RBC Hgb Hct MCV MCH MCHC RDW Plt Count MPV Absolute Nucleated RBC Nucleated RBC % (auto) Sodium Potassium Chloride Carbon Dioxide Anion Gap BUN Creatinine Estim Creat Clear Calc Estimated GFR POC Glucose 149 H Fasting Glucose Calcium Random Cortisol Progress Note: A&P Assessment and plan (1) Syncope due to orthostatic hypotension: Status: Acute Plan 58-year-old gentleman with syncope due to orthostatic hypotension. Blood pressures are borderline. He has been hydrated with IV fluids. Check orthostatics. His cortisol level is low normal. If orthostatics are still positive despite fluid resuscitation then can try low- dose midodrine. Thank you for allowing me to participate in the care of your patient. Please feel free to contact me if you have any questions. Time Spent With Patient Time: Total time managing care of this patient today ____ minutes. Progress Note: Quality Stroke Does the patient have a stroke diagnosis?: No Procedures Date of Service Date of Service: 09/06/23
[2023-09-06 11:37] LABS: Glucose, Whole Blood 188 mg/dL (60-115)
[2023-09-06] MEDS: Insulin Lispro 100 UNIT/ML 3 ML VIAL SUBCUT ×3 (11:57→20:46)
[2023-09-06 16:20] LABS: Glucose, Whole Blood 228 mg/dL (60-115)
[2023-09-06] MEDS: 0.9 % Sodium Chloride Flush 3 ML SYRINGE IVFLUSH ×2 (16:36→20:47)
[2023-09-06] MEDS: Acetaminophen 325 MG TABLET 650 MG PO (16:37)
[2023-09-06 20:10] LABS: Glucose, Whole Blood 233 mg/dL (60-115)
[2023-09-06] MEDS: Atorvastatin Calcium 80 MG TABLET PO (20:46)
[2023-09-06] MEDS: QUEtiapine Fumarate 100 MG TABLET PO (20:46)
[2023-09-06] MEDS: traZODone HCL 100 MG TABLET PO (20:46)
[2023-09-06] MEDS: Enoxaparin Sodium 40 MG/0.4 ML SYRINGE SUBCUT (23:48)
[2023-09-07] VITALS (11 sets, daily range): BP systolic 91–153; BP diastolic 59–87; PULSE 73–91; RESP 16–20; TEMP 36.3–36.5; O2SAT 96–99
[2023-09-07] MEDS: Omeprazole 40 MG CAPSULE.DR PO (05:39)
[2023-09-07 07:39] LABS: Glucose, Whole Blood 142 mg/dL (60-115)
[2023-09-07] MEDS: DULoxetine HCl 30 MG CAPSULE.DR PO (08:01)
[2023-09-07] MEDS: Metoprolol Tartrate 50 MG TABLET PO (08:01)
[2023-09-07] MEDS: Gabapentin 300 MG CAPSULE PO ×3 (08:01→21:58)
[2023-09-07] MEDS: Aspirin Enteric Coated 81 MG TABLET.DR PO (08:01)
[2023-09-07] MEDS: Divalproex Sodium Sprinkles 125 MG CAP.DR.SPR 375 MG PO ×2 (08:02→21:58)
[2023-09-07] MEDS: 0.9 % Sodium Chloride Flush 3 ML SYRINGE IVFLUSH ×3 (08:02→22:00)
[2023-09-07] MEDS: Insulin Glargine,Hum.rec.anlog 100 UNIT/ML 10 ML VIAL 18 UNIT SUBCUT (08:02)
[2023-09-07] MEDS: Fludrocortisone Acetate 0.1 MG TABLET 0.2 MG PO (09:48)
--- NOTE | 2023-09-07 10:12 | MHC.CM.PN ---
Per ROUNDS discussion, Patient is still orthostatic and having med changes. Patient is not yet medically cleared for dc. Home with services is the goal and CM will continue to follow.
[2023-09-07 11:22] LABS: Glucose, Whole Blood 245 mg/dL (60-115)
[2023-09-07] MEDS: Insulin Lispro 100 UNIT/ML 3 ML VIAL SUBCUT ×3 (12:03→21:59)
--- NOTE | 2023-09-07 13:56 | HO.PM.IMPN ---
Subjective Subjective Date of Service: 09/07/23 Interval History: Seen and evaluated this morning Positive orthostatic vitals and feeling lightheadedness upon standing No syncopal episodes Review of Systems Review of Systems: Yes all other systems are reviewed and are negative Physical Exam Vital Signs: Vital Signs: Last Vital Signs Temp 97.6 F 09/07/23 11:17 Pulse 80 09/07/23 11:17 Resp 18 09/07/23 11:17 BP 119/75 09/07/23 11:17 Pulse Ox 97 09/07/23 11:17 O2 Del Method Room Air 09/07/23 11:17 BMI result Body Mass Index 26.6 Const: Other: Constitutional : Awake, interactive, not in distress Neck : Normal inspection, Supple Cardiovascular : RRR, no JVP, no lower extremity edema Respiratory : good bilateral air entry, no crackles, wheezes or rhonchi Gastrointestinal: soft, lax, Normal bowel sounds, Non tender Skin : Warm, Dry Neurological : Alert & oriented to self and place, No focal deficit Objective Data Active Medications Acetaminophen (Acetaminophen 325 Mg Tablet) 650 mg PO Q6H PRN PRN Reason: Pain, Mild (Pain Scale 1-3) Last Admin: 09/06/23 16:37 Dose: 650 mg Documented By: LYNSEY Aspirin (Aspirin Enteric Coated 81 Mg Tablet.) 81 mg PO DAILY [facility] Last Admin: 09/07/23 08:01 Dose: 81 mg Documented By: LYNSEY Atorvastatin Calcium (Atorvastatin Calcium 80 Mg Tablet) 80 mg PO BEDTIME [facility] Last Admin: 09/06/23 20:46 Dose: 80 mg Documented By: SHELDON Benzonatate (Benzonatate 100 Mg Capsule) 100 mg PO TID PRN PRN Reason: Cough Dextrose (Dextrose 50 % 25 Gm/50 Ml Syringe) 25 gm IVPUSH Q15M PRN; Protocol PRN Reason: per Hypoglycemia Standing Ord. Divalproex Sodium (Divalproex Sodium Sprinkles 125 Mg ) 375 mg PO BID [facility] Last Admin: 09/07/23 08:02 Dose: 375 mg Documented By: LYNSEY Docusate Sodium (Docusate Sodium 100 Mg Capsule) 100 mg PO DAILY PRN PRN Reason: Constipation Duloxetine HCl (Duloxetine Hcl 30 Mg Capsule.) 30 mg PO DAILY [facility] Last Admin: 09/07/23 08:01 Dose: 30 mg Documented By: LYNSEY Enoxaparin Sodium (Enoxaparin Sodium 40 Mg/0.4 Ml Syringe) 40 mg SUBCUT Q24H [facility] Last Admin: 09/06/23 23:48 Dose: 40 mg Documented By: SHELDON Fludrocortisone Acetate (Fludrocortisone Acetate 0.1 Mg Tablet) 0.2 mg PO DAILY [facility] Last Admin: 09/07/23 09:48 Dose: 0.2 mg Documented By: LYNSEY Gabapentin (Gabapentin 300 Mg Capsule) 300 mg PO TID [facility] Last Admin: 09/07/23 08:01 Dose: 300 mg Documented By: LYNSEY Glucose (Glucose Gel 15 Gm Gel..Gram.) 15 gm PO Q15M PRN; Protocol PRN Reason: per Hypoglycemia Standing Ord. Insulin Glargine (Insulin Glargine,Hum.Rec.Anlog 100 Unit/Ml 10 Ml Vial) 18 unit SUBCUT DAILY [facility] Last Admin: 09/07/23 08:02 Dose: 18 unit Documented By: LYNSEY Insulin Human Lispro (Insulin Lispro 100 Unit/Ml 3 Ml Vial) 0 unit SUBCUT QIDACHS [facility]; Protocol Last Admin: 09/07/23 12:03 Dose: 4 unit Documented By: LYNSEY Metoprolol Tartrate (Metoprolol Tartrate 25 Mg Tablet) 25 mg PO BID [facility]; Protocol Naproxen (Naproxen 500 Mg Tablet) 500 mg PO BID PRN PRN Reason: Pain, Mild (Pain Scale 1-3) Omeprazole (Omeprazole 40 Mg Capsule.) 40 mg PO DAILY@0630 [facility] Last Admin: 09/07/23 05:39 Dose: 40 mg Documented By: SHELDON Quetiapine Fumarate (Quetiapine Fumarate 100 Mg Tablet) 100 mg PO BEDTIME [facility] Last Admin: 09/06/23 20:46 Dose: 100 mg Documented By: SHELDON Senna (Sennosides 8.6 Mg Tablet) 17.2 mg PO BEDTIME PRN PRN Reason: Constipation Sodium Chloride (0.9 % Sodium Chloride Flush 3 Ml Syringe) 3 ml IVFLUSH QSHIFT [facility] Last Admin: 09/07/23 08:02 Dose: 3 ml Documented By: LYNSEY Trazodone HCl (Trazodone Hcl 100 Mg Tablet) 100 mg PO BEDTIME [facility] Last Admin: 09/06/23 20:46 Dose: 100 mg Documented By: SHELDON Labs 09/06/23 06:31 09/06/23 06:31 Labs: Laboratory Results - last 24 hr 09/06/23 09/06/23 09/07/23 16:16 20:03 07:02 POC Glucose 228 H 233 H 142 H 09/07/23 11:19 POC Glucose 245 H Assessment and Plan (1) Syncope due to orthostatic hypotension: Status: Acute Plan 58M PMH essential tremor, htn, hld, dm, schizoaffective presented with syncope syncope due to orthostatic hypotension still positive To give ivf Add Fludricortisone, consider Midodrine Cut down Metoprolol Echo within normal, on tele taper off cymbalta PT following am cortisol WNL DM insulin hld statin gerd ppi schizoaffective seroquel dvt prophylaxis - lovenox full code reason for continued hospitalization: still orthostatic with risk of falls and injury. Quality Stroke Does the patient have a stroke diagnosis?: No VTE Prior VTE?: No VTE Risk Level:: Medical - moderate - high VTE Device Contraindication: Treatment Not Indicated VTE Drug Contraindication: N/A - Med Ordered
[2023-09-07 16:30] LABS: Glucose, Whole Blood 188 mg/dL (60-115)
[2023-09-07] MEDS: 0.9 % Sodium Chloride 1,000 ML 100 ML IVCONT (16:56)
[2023-09-07 20:50] LABS: Glucose, Whole Blood 245 mg/dL (60-115)
[2023-09-07] MEDS: Midodrine HCl 2.5 MG TABLET PO (21:58)
[2023-09-07] MEDS: traZODone HCL 100 MG TABLET PO (21:58)
[2023-09-07] MEDS: Metoprolol Tartrate 12.5 MG HALFTAB PO (21:58)
[2023-09-07] MEDS: Atorvastatin Calcium 80 MG TABLET PO (21:58)
[2023-09-07] MEDS: Enoxaparin Sodium 40 MG/0.4 ML SYRINGE SUBCUT (21:59)
[2023-09-07] MEDS: QUEtiapine Fumarate 100 MG TABLET PO (21:59)
[2023-09-08] VITALS (7 sets, daily range): BP systolic 121–179; BP diastolic 68–101; PULSE 73–86; RESP 20; TEMP 36.1–36.6; O2SAT 96–98
[2023-09-08] MEDS: 0.9 % Sodium Chloride 1,000 ML 100 ML IVCONT (05:14)
[2023-09-08] MEDS: Omeprazole 40 MG CAPSULE.DR PO (06:09)
[2023-09-08 07:01] LABS: Glucose, Whole Blood 134 mg/dL (60-115)
[2023-09-08] MEDS: 0.9 % Sodium Chloride 500 ML IV (07:51)
[2023-09-08] MEDS: Insulin Glargine,Hum.rec.anlog 100 UNIT/ML 10 ML VIAL 18 UNIT SUBCUT (07:52)
[2023-09-08] MEDS: Aspirin Enteric Coated 81 MG TABLET.DR PO (07:52)
[2023-09-08] MEDS: Gabapentin 300 MG CAPSULE PO (07:52)
[2023-09-08] MEDS: DULoxetine HCl 30 MG CAPSULE.DR PO (07:52)
[2023-09-08] MEDS: Fludrocortisone Acetate 0.1 MG TABLET 0.2 MG PO (07:53)
[2023-09-08] MEDS: Divalproex Sodium Sprinkles 125 MG CAP.DR.SPR 375 MG PO (07:53)
[2023-09-08] MEDS: Midodrine HCl 2.5 MG TABLET PO (07:53)
--- NOTE | 2023-09-08 09:27 | P.CONNP_ITS ---
History of Present Illness Reason for Consult Consult date: 09/08/23 Reason for consult: Orthostatc Hypotension Chief Complaint Chief complaint: Syncopal episode, positive orthostatics History of Present Illness Narrative: [id number] with ?essential tremor, h/o HTN, HLD, Longstanding insulin- dependent diabetes type 2,- About 15 years bipolar disorder, and schizoaffective disorder who presented to the ED for evaluation of frequent falls at home. Pt is a poor historian and rather vague on details, but reports has been experiencing multiple falls at home for past 2-3 months, often when attempting to get up out of bed or from a prone position. Also endorses lightheadedness and dizziness with change in position. Unclear if any LOC during episodes. Reports eating and drinking normally. He denies recent changes to medications, but review of records indicates on 08/31/2023 his Cymbalta was increased from 60mg daily to 90mg daily. He denies any other acute physical complaint: no chest pain/pressure, palpitations. Denies SOB. No fever, chills, N/V, diarrhea, abdominal pain. Of note, pt was admitted to the hospital over a year prior in 05/2022 for similar complaints which were then attributed to side effects of anti-psychotic medications. He has not been on steroids He is on Gabapentin Review of Systems Constitutional: Denies fever(s) and Denies weight loss Cardiovascular: Denies chest pain Respiratory: Denies cough and Denies hemoptysis Gastrointestinal: Denies abdominal pain, Denies diarrhea and Denies nausea Musculoskeletal: Denies back pain Denies focal weakness PMFSH Past Medical History Medical History Tremor of both hands Chronic low back pain Type 2 diabetes mellitus Depression Bipolar 1 disorder Schizophrenia Family History Family History Mother HTN (hypertension) Diabetes Alzheimer disease Father Diabetes HTN (hypertension) Schizophrenia PVD (peripheral vascular disease) CAD (coronary artery disease) Bipolar 1 disorder Social History Social History Household Members: Other Household Members Other:: sister Housing: Apartment Do you presently have visiting nurse or other home services: Yes Patient Tobacco Use Status: Former Tobacco user Advance Directives Date on File: 09/04/23 service: No Current occupational status: unemployed Meds Allergies Allergy/AdvReac Type Severity Reaction Status Date / Time No Known Allergies Allergy Mild NONE Verified 03/05/23 10:47 Active Medications: Current Medications Acetaminophen (Acetaminophen 325 Mg Tablet) 650 mg PO Q6H PRN PRN Reason: Pain, Mild (Pain Scale 1-3) Last Admin: 09/06/23 16:37 Dose: 650 mg Aspirin (Aspirin Enteric Coated 81 Mg Tablet.) 81 mg PO DAILY [facility] Last Admin: 09/08/23 07:52 Dose: 81 mg Atorvastatin Calcium (Atorvastatin Calcium 80 Mg Tablet) 80 mg PO BEDTIME [facility] Last Admin: 09/07/23 21:58 Dose: 80 mg Benzonatate (Benzonatate 100 Mg Capsule) 100 mg PO TID PRN PRN Reason: Cough Dextrose (Dextrose 50 % 25 Gm/50 Ml Syringe) 25 gm IVPUSH Q15M PRN; Protocol PRN Reason: per Hypoglycemia Standing Ord. Divalproex Sodium (Divalproex Sodium Sprinkles 125 Mg ) 375 mg PO BID [facility] Last Admin: 09/08/23 07:53 Dose: 375 mg Docusate Sodium (Docusate Sodium 100 Mg Capsule) 100 mg PO DAILY PRN PRN Reason: Constipation Duloxetine HCl (Duloxetine Hcl 30 Mg Capsule.) 30 mg PO DAILY [facility] Last Admin: 09/08/23 07:52 Dose: 30 mg Enoxaparin Sodium (Enoxaparin Sodium 40 Mg/0.4 Ml Syringe) 40 mg SUBCUT Q24H [facility] Last Admin: 09/07/23 21:59 Dose: 40 mg Fludrocortisone Acetate (Fludrocortisone Acetate 0.1 Mg Tablet) 0.2 mg PO DAILY [facility] Last Admin: 09/08/23 07:53 Dose: 0.2 mg Gabapentin (Gabapentin 300 Mg Capsule) 300 mg PO TID [facility] Last Admin: 09/08/23 07:52 Dose: 300 mg Glucose (Glucose Gel 15 Gm Gel..Gram.) 15 gm PO Q15M PRN; Protocol PRN Reason: per Hypoglycemia Standing Ord. Insulin Glargine (Insulin Glargine,Hum.Rec.Anlog 100 Unit/Ml 10 Ml Vial) 18 unit SUBCUT DAILY [facility] Last Admin: 09/08/23 07:52 Dose: 18 unit Insulin Human Lispro (Insulin Lispro 100 Unit/Ml 3 Ml Vial) 0 unit SUBCUT QIDACHS [facility]; Protocol Last Admin: 09/08/23 07:52 Dose: Not Given Metoprolol Tartrate (Metoprolol Tartrate 12.5 Mg Halftab) 12.5 mg PO BID [facility]; Protocol Last Admin: 09/07/23 21:58 Dose: 12.5 mg Midodrine (Midodrine Hcl 2.5 Mg Tablet) 2.5 mg PO TID [facility] Last Admin: 09/08/23 07:53 Dose: 2.5 mg Naproxen (Naproxen 500 Mg Tablet) 500 mg PO BID PRN PRN Reason: Pain, Mild (Pain Scale 1-3) Omeprazole (Omeprazole 40 Mg Capsule.Dr) 40 mg PO DAILY@0630 [facility] Last Admin: 09/08/23 06:09 Dose: 40 mg Quetiapine Fumarate (Quetiapine Fumarate 100 Mg Tablet) 100 mg PO BEDTIME [facility] Last Admin: 09/07/23 21:59 Dose: 100 mg Senna (Sennosides 8.6 Mg Tablet) 17.2 mg PO BEDTIME PRN PRN Reason: Constipation Sodium Chloride (0.9 % Sodium Chloride Flush 3 Ml Syringe) 3 ml IVFLUSH QSHIFT [facility] Last Admin: 09/08/23 07:57 Dose: Not Given Trazodone HCl (Trazodone Hcl 100 Mg Tablet) 100 mg PO BEDTIME [facility] Last Admin: 09/07/23 21:58 Dose: 100 mg Home Medications Medication Instructions Recorded Confirmed Last Taken Type diclofenac sodium 1 % topical gel 2 g topical BID PRN Pain 06/23/22 09/05/23 Unknown History duloxetine 30 mg capsule,delayed 30 mg PO DAILY 06/23/22 09/05/23 09/04/23 History release gabapentin 300 mg capsule 1 cap PO TID 06/23/22 09/05/23 09/04/23 History insulin glargine 100 unit/mL (3 25 unit subcut QAM 06/23/22 09/05/23 09/04/23 History mL) subcutaneous pen (Lantus Solostar U-100 Insulin) insulin lispro 100 unit/mL 0 sliding scale dose subcut TIDAC 06/23/22 09/04/23 06/23/22 History subcutaneous pen metoprolol tartrate 50 mg tablet 1 tab PO BID 06/23/22 09/05/23 09/04/23 History omeprazole 40 mg capsule,delayed 1 cap PO DAILY 06/23/22 09/05/23 09/04/23 History release rosuvastatin 40 mg tablet 1 tab PO BEDTIME 06/23/22 09/05/23 09/04/23 History trazodone 100 mg tablet 1 tab PO BEDTIME 06/23/22 09/05/23 09/04/23 History aspirin 81 mg tablet,delayed 81 mg PO DAILY 09/04/23 09/05/23 09/04/23 History release dulaglutide 1.5 mg/0.5 mL 1.5 mg subcut QWEEK 09/04/23 09/05/23 Unknown History subcutaneous pen injector (Trulicity) metformin 500 mg tablet 500 mg PO BID 09/04/23 09/05/23 09/04/23 History acetaminophen 650 mg 650 mg PO TID 09/05/23 09/05/23 Unknown History tablet,extended release duloxetine 60 mg capsule,delayed 60 mg PO DAILY 09/05/23 09/05/23 09/04/23 History release sprinkle Physical Exam Vital Signs: Last Vital Signs Temp 97.9 F 09/08/23 06:59 Pulse 80 09/08/23 06:59 Resp 20 09/08/23 06:59 BP 127/73 09/08/23 06:59 Pulse Ox 98 09/08/23 06:59 O2 Del Method Room Air 09/08/23 06:59 BMI result Body Mass Index 26.6 Const General: comfortable Nutritional Appearance: well nourished Orientation/consciousness: patient oriented x3 HEENT Head: No normal to inspection Mouth: moist mucous membranes Neck Neck: Yes supple and Yes no JVD Resp Auscultation: clear to auscultation bilaterally, no rales and rub present Cardio Jugular venous distension: no JVD Palpation: no palpable S3 and no palpable S4 Heart sounds: no rubs GI Palpation (GI): Soft to palpation and nontender Percussion: No Fluid wave present General: Yes no CVA tenderness Back/Spine/Pelvis Back: no CVA tenderness Skin General skin exam: no rashes or lesions noted Neuro General: patient oriented x3 Extrem General: Yes no pedal edema and No clubbing Results Lab Results 09/06/23 06:31 09/06/23 06:31 Lab results: Chemistry 09/06/23 06:31 Sodium 141 Potassium 4.0 Carbon Dioxide 27 BUN 12 Creatinine 1.04 Calcium 9.0 D Hematology 09/06/23 06:31 WBC 4.5 L Hgb 12.8 L Plt Count 134 L Assessment and Plan (1) Orthostatic hypotension: Status: Acute Plan Middle aged man with long standing DM with orhtstatic hypotension r/o Autonomic dysfunction r/o Adrenal insufficiency r/o other causes including volume depletion ? secondary to medications Recommend Urine Na/Cr Serum cortisol check Metanephrines ( all ordered) Agree with IV hydration with NS and reassess BP Orthostatic precautions: Head end elevation : 30 Deg; TRAVIS, Cautious change in posture.- Discussed with patient Shall follow along Thank you Procedures Date of Service Date of Service: 09/08/23
[2023-09-08 11:02] LABS: Glucose, Whole Blood 193 mg/dL (60-115)
--- NOTE | 2023-09-08 11:15 | P.F2F_ITS ---
Service Date Service Date: 09/08/23 Encounter Date of encounter: 09/08/23 Reasons for Services Signs and symptoms assessed: Physical deconditioning, postural hypotension Falls Reason for physical therapy: home safety and mobility and therapeutic exercises Homebound: Leaving the home is medically contraindicated at this time without the asist of a device and/or another person due th the listed conditions above and below. Reason homebound: unsteady gait / fall risk and fall risk related to blood pre ssure changes Certification: Based on the above findings, I certify that this patient is confined to the home and needs intermittent residential care, physical therapy and/or speech therapy, or continues to need occupational therapy. The patient is under my care, and I have initiated the establishment of the plan of care. The patient will be followed by a physician who will periodically review the plan of care. Time Spent With Patient Time: Total time managing care of this patient today ____ minutes.
--- NOTE | 2023-09-08 11:16 | PM.DS ---
DS: Providers Provider Date of Service: 09/08/23 Date of admission: 09/04/23 23:03 Primary care physician: Ashlee Coon NP Consults: 09/04/23 23:09 Consult to Cardiology Routine Consulting Provider: [facility] Reason for consultation: Positive orthostatics 09/05/23 07:10 Consult to Neurology Routine Consulting Provider: [facility] Reason for consultation: frequent falls, orthostatic, ?parkinsons 09/07/23 15:58 Consult to Nephrology Routine Consulting Provider: Dieter Martinez Reason for consultation: Orthostatic hypotension DS: Diagnosis Discharge Diagnosis (1) Orthostatic hypotension: Status: Acute (2) Syncope due to orthostatic hypotension: Status: Acute (3) Recurrent falls: Status: Acute (4) Tremor of both hands: Status: Acute DS: Summary Hospital Course Hospital Course: Admission note HPI Pt is a 58-year-old male with a PMH significant for?essential tremor, HTN, HLD, insulin-dependent diabetes type 2, bipolar disorder, and schizoaffective disorder who presents to the ED for evaluation of frequent falls at home. Pt is a poor historian and rather vague on details, but reports has been experiencing multiple falls at home for past 2-3 months, often when attempting to get up out of bed or from a prone position. Also endorses lightheadedness and dizziness with change in position. Unclear if any LOC during episodes. Reports eating and drinking normally. Patient says he presents today at the insistence of his sister, with whom he lives, and also because today's fall was different and like a seizure . However sister, who initially to the ED with pt, denies any seizure-like activity. Attempted to contact sister for further clarification, but she was unavailable. He denies recent changes to medications, but review of records indicates on 08/31/2023 his Cymbalta was increased from 60mg daily to 90mg daily. He denies any other acute physical complaint: no chest pain/pressure, palpitations. Denies SOB. No fever, chills, N/V, diarrhea, abdominal pain. Of note, pt was admitted to the hospital over a year prior in 05/2022 for similar complaints which were then attributed to side effects of anti-psychotic medications. When asked, pt states he does not remember this admission or being in the hospital before. In the ED pt was afebrile with elevated H are to 96, hypertensive to 160/73. Orthostatics initially positive with SBP drop of 47 and DBP of 10, and again positive after 2L IVF with SBP drop of 52 and DBP drop of 13. Labs were significant for stable H&H of 13.4/37.3, creatinine 1.32. No leukocytosis. Electrolytes WNL. Hepatic function baseline. Troponin negative. Valproic acid levels slightly low at 48.5. CT of head negative for acute intracranial hemorrhage. CT of cervical spine negative for acute fracture or subluxation. EKG showed normal sinus rhythm without significant ST elevations or depressions. Pt was treated with IVF. Pt will be admitted to the hospital for treatment and further evaluation of syncope with positive orthostatic hypotension despite resuscitation with IVF. Hospital course The patient was evaluated for syncope due to orthostatic hypotension as he reports falling at home and dizziness upon standing up. Treated with IV fluids with minimal improvement as cortisol level came low normal. Metoprolol was stopped and Fludricortisone was added with good response along with Midodrine. Given high BP readings will discharge him only on Fludricortisone and discontinuation of Metoprolol (originally prescribed for HTN and essential tremors). the Tremors were evaluated by neurologist who recommended outpatient EMG study. He was able to participate with PT who recommended home PT. Follow with dr Villalpando from Neurology for Routine EMG nerve conduction study Stop Metoprolol Start Fludricortisone Take your time with changing position. increase physical activity as tolerated Time Attestation Discharge coordination time: Greater than 30 minutes Quality: Safe Use of Opioids Does Pt have an Active Cancer Diagnosis on the Problem List?: No Quality: Stroke Does the patient have a stroke diagnosis?: No Physical Exam Vital Signs: Vital Signs: Last Vital Signs Temp 97.5 F 09/08/23 11:00 Pulse 84 09/08/23 11:00 Resp 20 09/08/23 11:00 BP 167/87 H 09/08/23 11:00 Pulse Ox 97 09/08/23 11:00 O2 Del Method Room Air 09/08/23 11:00 BMI result Body Mass Index 26.6 Const: Other: Constitutional : Awake, interactive, not in distress Neck : Normal inspection, Supple Cardiovascular : RRR, no JVP, no lower extremity edema Respiratory : good bilateral air entry, no crackles, wheezes or rhonchi Gastrointestinal: soft, lax, Normal bowel sounds, Non tender Skin : Warm, Dry Neurological : Alert & oriented to self and place, No focal deficit DS: Data Data Completed and Pending Labs on day of discharge: Laboratory Results - last 24 hr 09/07/23 09/07/23 09/07/23 11:19 16:26 20:40 POC Glucose 245 H 188 H 245 H 09/08/23 09/08/23 06:54 10:55 POC Glucose 134 H 193 H Imaging Chest x-ray: Radiologist's impression: ITS Impressions Cervical Spine CT 09/04/23 17:56 IMPRESSION: No intracranial hemorrhage. No cervical spine fracture. Head CT 09/04/23 17:56 IMPRESSION: No intracranial hemorrhage. No cervical spine fracture. Discharge Plan Discharge Anticipated Discharge Date/Time: 09/08/23 11:08 Patient Disposition: Home Health Service Discharge Diagnosis: Orthostatic hypotension Referrals: Ashlee Coon, [facility] ENGINE[employer] [Primary Care Provider] - 1 Week Discharge Medications: New fludrocortisone 0.1 mg Tablet 0.2 mg PO DAILY Qty: 60 0RF Continued omeprazole 40 mg capsule,delayed release(DR/EC) 1 cap PO DAILY gabapentin 300 mg capsule 1 cap PO TID insulin lispro 100 unit/mL insulin pen 0 sliding scale dose subcut TIDAC rosuvastatin 40 mg tablet 1 tab PO BEDTIME duloxetine 30 mg capsule,delayed release(DR/EC) 30 mg PO DAILY insulin glargine [Lantus Solostar U-100 Insulin] 100 unit/mL (3 mL) insulin pen 25 unit subcut QAM diclofenac sodium 1 % gel 2 g topical BID PRN (Reason: Pain) trazodone 100 mg tablet 1 tab PO BEDTIME quetiapine 100 mg Tablet 100 mg PO BEDTIME Qty: 30 0RF divalproex 125 mg Capsule, Delayed Rel Sprinkle 375 mg PO BID Qty: 30 0RF diazepam [Valium] 5 mg tablet 5 mg PO TID PRN (Reason: muscle spasm) Qty: 14 0RF metformin 500 mg tablet 500 mg PO BID aspirin 81 mg tablet,delayed release (DR/EC) 81 mg PO DAILY Trulicity 1.5 mg/0.5 mL pen injector 1.5 mg subcut QWEEK duloxetine 60 mg Capsule, Delayed Rel Sprinkle 60 mg PO DAILY Rx Instructions: take 30mg with 60mg acetaminophen 650 mg tablet extended release 650 mg PO TID Discontinued metoprolol tartrate 50 mg tablet 1 tab PO BID Discharge Orders: Discharge Order (Routine); Ordered 09/08/23 Ordered By: Nelly Bolivar Diet: Advance to usual diet Activity on Discharge: As tolerated Stand Alone Forms: Patient Portal Discharge page Care Plan Goals: Read below Health Concerns: Read below Plan of Treatment: Read below Assessment: You were admitted to the hospital for evaluation of falls. found to have a drop in blood pressure. Metoprolol was stopped and Fludricortisone was added along with IV fluids with good response as your blood pressure improved. Follow with dr Villalpando from Neurology for Routine EMG nerve conduction study Stop Metoprolol Start Fludricortisone Take your time with changing position. increase physical activity as tolerated
--- NOTE | 2023-09-08 11:49 | MHC.CM.PN ---
Patient has been medically cleared for dc to home today, with services. AELXIS spoke with [place] [facility] REP/Port[facility] @ [phone] and informed him of today's dc. Portillo stated that [facility] will have a RN/PT/OT eval Patient once home. ALEXIS left a detailed message for Sister/HCP/[place] @ [phone], addressing the IMM and informing her of today's dc.
--- NOTE | 2023-09-08 11:56 | MHC.CM.PN ---
DC Summary has been successfully faxed to Portillo from [place] [facility] @ [phone].
[2023-09-08] MEDS: Insulin Lispro 100 UNIT/ML 3 ML VIAL SUBCUT (11:57)
== END 2023-09-08 13:07 | disposition home health service (06) | DRG 312 ==
LOC: HO.ED 21:50 → HO.EDOVER 23:17 → HO.IMC 09-05 18:52
PROVIDERS: Internal Medicine; Admitting Provider Student in an Organized Health Care Education/Training Program; Emergency Provider Emergency Medicine; PCP Nurse Practitioner Gerontology; Visit Provider Student in an Organized Health Care Education/Training Program
DX: I95.1 Orthostatic hypotension (principal); E78.5 Hyperlipidemia, unspecified; F43.10 Post-traumatic stress disorder, unspecified; F41.1 Generalized anxiety disorder; F25.9 Schizoaffective disorder, unspecified; E11.42 Type 2 diabetes mellitus with diabetic polyneuropathy; Z87.891 Personal history of nicotine dependence; Z79.4 Long term (current) use of insulin; Z79.82 Long term (current) use of aspirin; Z79.84 Long term (current) use of oral hypoglycemic drugs; Z79.85 Long-term (current) use of injectable non-insulin antidiabetic drugs; Z79.899 Other long term (current) drug therapy
CPT/HCPCS: 36415; 70450; 72125; 80048; 80076; 80164; 81003; 82533; 82947; 83690; 83735; 84484; 85025; 85027; 93005; 93306; 97116; 97161; 97530; 99285; J1650

== ENCOUNTER 2023-09-04 23:03 | Outpatient (BNV) | payer MEDICARE, MEDICAID, SELFPAY | END 2023-09-05 07:00 | PROVIDERS: Admitting Provider Student in an Organized Health Care Education/Training Program; Emergency Provider Emergency Medicine; PCP Nurse Practitioner Gerontology; Visit Provider Internal Medicine Cardiovascular Disease | DX: I95.1 Orthostatic hypotension (principal); R29.6 Repeated falls | CPT/HCPCS: 93306 ==

== ENCOUNTER → 2023-09-04 23:03 | Outpatient (BNV) | payer MEDICARE, MEDICAID, SELFPAY | PROVIDERS: Admitting Provider Student in an Organized Health Care Education/Training Program; Emergency Provider Emergency Medicine; Visit Provider Internal Medicine Cardiovascular Disease | DX: I95.1 Orthostatic hypotension (principal); R94.31 Abnormal electrocardiogram [ECG] [EKG] | CPT/HCPCS: 93010; 99222; 99232 ==

== ENCOUNTER → 2023-09-04 23:03 | Outpatient (BNV) | payer MEDICARE, MEDICAID, SELFPAY | PROVIDERS: Admitting Provider Student in an Organized Health Care Education/Training Program; Emergency Provider Emergency Medicine; PCP Nurse Practitioner Gerontology; Visit Provider Internal Medicine Hypertension Specialist | DX: I95.1 Orthostatic hypotension (principal) | CPT/HCPCS: 99222 ==

== ENCOUNTER → 2023-09-04 23:03 | Outpatient (BNV) | payer MEDICARE, MEDICAID, SELFPAY | PROVIDERS: Admitting Provider Student in an Organized Health Care Education/Training Program; Emergency Provider Emergency Medicine; Visit Provider Student in an Organized Health Care Education/Training Program | DX: I95.1 Orthostatic hypotension (principal); R29.6 Repeated falls; R25.1 Tremor, unspecified | CPT/HCPCS: 99223; 99232; 99239; G0180 ==

== ENCOUNTER 2025-02-03 13:37 | Inpatient (IN) | payer MEDICARE, MEDICAID, SELFPAY ==
[2025-02-03] VITALS (8 sets, daily range): BP systolic 82–160; BP diastolic 55–91; PULSE 72–113; RESP 14–17; TEMP 36.6; O2SAT 93–100; BMI 19.8
--- NOTE | ~2025-02-03 | CT_ITS ---
CLINICAL HISTORY: syncope, elevated d dimer CT angiography of the chest with IV contrast. 3D/MIP post processing reconstructions were performed. COMPARISON: None FINDINGS: There are no intraluminal filling defects to suggest pulmonary embolism. No evidence of right heart strain. Visualized thyroid is unremarkable. No supraclavicular or axillary lymphadenopathy. Ascending aorta and main pulmonary artery are normal in caliber. Coronary artery calcifications present within the LAD and circumflex. No pericardial effusion. Normal esophagus. No mediastinal or hilar lymphadenopathy. No pleural effusion. Minimal layering atelectasis along the posterior lower lobes. Mild subpleural intralobular septal thickening along the mid to lower lungs. Trachea and central airways are clear. No significant bronchial wall thickening. Cholelithiasis present within the gallbladder neck. No pericholecystic inflammatory changes. Flowing marginal osteophytes present throughout the thoracic spine. No acute fracture or suspicious bone lesion IMPRESSION: 1. No evidence of pulmonary embolism. 2. No acute intrathoracic findings. No evidence of pneumonia. 3. Mild subpleural fibrotic interstitial anomaly along the mid to lower lungs may represent an early lung fibrosis. Would recommend clinical evaluation for potential causes, including collagen vascular disease and inhalation exposures. Continual annual evaluation is likely appropriate. This document has been electronically signed by: Muarice Amador MD on 02/03/2025 17:49:19
--- NOTE | ~2025-02-03 | US_ITS ---
EXAMINATION: BILATERAL CAROTID ULTRASOUND WITH DOPPLER HISTORY: syncope COMPARISON: There are no prior studies for comparison. TECHNIQUE: Real time and Color and Spectral doppler ultrasonography of the carotid and vertebral arteries was performed in multiple planes. FINDINGS: There is a small amount of plaque in both internal carotid arteries. VERTEBRAL FLOW DIRECTION: Antegrade bilaterally. PEAK SYSTOLIC VELOCITIES (in cm/sec): RIGHT: CCA: Prox: 81.4 Dist: 81.2 ICA: Prox: 58.0 Mid: 99.8 Dist: 96.6 ICA/CCA Ratio: 1.23 ECA: 138 Peak ICA end diastolic velocity (EDV): 32.9 LEFT: CCA: Prox: 129 Dist: 91.8 ICA: Prox: 87.0 Mid: 100 Dist: 86.9 ICA/CCA Ratio: 0.78 ECA: 120 Peak ICA end diastolic velocity (EDV): 30.8 US/US carotid duplex BI IMPRESSION: Findings consistent with 0-49% stenosis of the bilateral internal carotid arteries. Electronically signed by: Rodney Pendleton MD 02/04/2025 10:20 AM EDT
--- NOTE | ~2025-02-03 | CT_ITS ---
CLINICAL HISTORY: dizziness, fall, head strike CT head without contrast. COMPARISON: CT head dated 09/04/23 at 17:46 EST FINDINGS: The visualized paranasal sinuses are clear. The mastoid air cells are clear. No calvarial fracture. Atherosclerotic intracranial vasculature. No evidence for mass or mass effect. No intracranial hemorrhage or abnormal extra-axial fluid collection. No CT evidence of acute infarct. The ventricles are proportional with the degree of mild global cerebral volume loss without evidence of hydrocephalus. Basilar cisterns are patent. There are periventricular areas of low attenuation compatible with mild white matter small vessel disease. Posterior fossa appears unremarkable. IMPRESSION: 1. No acute intracranial findings. This document has been electronically signed by: Maurice Amador MD on 02/03/2025 15:06:29
--- NOTE | ~2025-02-03 | XR_ITS ---
CLINICAL HISTORY: pain, injury ; PT states previous FX about a year and a half ago, pain after fall today. Four views of the right ankle. COMPARISON: None FINDINGS: Lateral right ankle soft tissue swelling. Atherosclerotic vascular calcifications. Calcaneal enthesophyte present. Mildly displaced oblique fracture of the lateral malleolus of the distal fibula. Distal tibia appears intact. Ankle mortise appears symmetric on non-stressed views. Talar dome appears intact. Visualized tarsal bones appear intact. IMPRESSION: 1. Mildly displaced oblique fracture of the lateral malleolus of the distal fibula. There is overlying soft tissue swelling. This document has been electronically signed by: Maurice Amador MD on 02/03/2025 14:31:50
--- NOTE | 2025-02-03 13:46 | ED_ITS ---
HPI - General Adult General Chief complaint: Dizziness Stated complaint: fall Time Seen by Provider: 02/03/25 14:18 Source: patient, RN notes reviewed and old records reviewed Mode of arrival: ambulatory Limitations: no limitations History of Present Illness ED Provider: Gretchen HPI narrative: Patient is a 59-year-old male with history of essential tremor, HTN, HLD, bipolar disorder, schizoaffective disorder, T2DM presenting to the emergency department with complaint of right ankle pain and swelling after a fall at home this morning. States that he became dizzy and blacked out, then woke up on the floor with injuries. Lives with sister, fall was unwitnessed. He is not anticoagulated. States he has had similar episodes in the past, and has been evaluated for this dizziness/syncope. Denies seizure history. Denies headache, vision changes, neck or back pain. Denies chest pain, dyspnea, palpitations. Reports history of fracture to right ankle in the past. Denies numbness/tingling to right foot. MD complaint: right ankle pain, syncope Related Data Home Medications ?Medication ?Instructions ?Recorded ?Confirmed diclofenac sodium 1 % topical gel 2 g topical BID PRN Pain 06/23/22 09/05/23 duloxetine 30 mg capsule,delayed 30 mg PO DAILY 06/23/22 09/05/23 release gabapentin 300 mg capsule 1 cap PO TID 06/23/22 09/05/23 insulin glargine 100 unit/mL (3 25 unit subcut QAM 06/23/22 09/05/23 mL) subcutaneous pen (Lantus Solostar U-100 Insulin) insulin lispro 100 unit/mL 0 sliding scale dose subcut TIDAC 06/23/22 09/04/23 subcutaneous pen omeprazole 40 mg capsule,delayed 1 cap PO DAILY 06/23/22 09/05/23 release rosuvastatin 40 mg tablet 1 tab PO BEDTIME 06/23/22 09/05/23 trazodone 100 mg tablet 1 tab PO BEDTIME 06/23/22 09/05/23 aspirin 81 mg tablet,delayed 81 mg PO DAILY 09/04/23 09/05/23 release dulaglutide 1.5 mg/0.5 mL 1.5 mg subcut QWEEK 09/04/23 09/05/23 subcutaneous pen injector ([facility]) metformin 500 mg tablet 500 mg PO BID 09/04/23 09/05/23 acetaminophen 650 mg 650 mg PO TID 09/05/23 09/05/23 tablet,extended release duloxetine 60 mg capsule,delayed 60 mg PO DAILY 09/05/23 09/05/23 release sprinkle Previous Rx's ?Medication ?Instructions ?Recorded divalproex 125 mg capsule,delayed 375 mg (3 x 125 mg) PO BID #30 caps 06/25/22 release sprinkle quetiapine 100 mg tablet 100 mg PO BEDTIME #30 tabs 06/25/22 diazepam 5 mg tablet (Valium) 5 mg PO TID PRN muscle spasm #14 03/05/23 tabs fludrocortisone 0.1 mg tablet 0.2 mg (2 x 0.1 mg) PO DAILY #60 09/08/23 tabs Allergies Allergy/AdvReac Type Severity Reaction Status Date / Time No Known Allergies Allergy Mild NONE Verified 02/03/25 13:48 Review of Systems 2 Review of Systems: As per HPI Yes all other systems are reviewed and are negative Constitutional: Constitutional: Reports as per HPI PMFSH Past Medical History Medical History (Updated 02/03/25 @ 17:45 by Zoraida Godinez NP) Tremor of both hands Chronic low back pain Type 2 diabetes mellitus Depression Bipolar 1 disorder Schizophrenia Family History Family History Mother HTN (hypertension) Diabetes Alzheimer disease Father Diabetes HTN (hypertension) Schizophrenia PVD (peripheral vascular disease) CAD (coronary artery disease) Bipolar 1 disorder Social History Social History Household Members: Other Household Members Other:: sister Housing: Apartment Do you presently have visiting nurse or other home services: Yes Patient Tobacco Use Status: Former Tobacco user Smoked in Last 30 Days: No Use of substances other than those prescribed or required for medical reasons: No Advance Directives: Yes Advance Directives on File: Yes Advance Directives Date on File: 09/04/23 Do you have a plan to hurt others: No Plan service: No Current occupational status: unemployed Physical Exam ED Vital Signs: Vital Signs - 24 hr 02/03/25 13:47 02/03/25 14:24 02/03/25 16:00 Temperature 98 F 97.9 F Pulse Rate 93 93 85 Respiratory Rate 17 16 15 Blood Pressure 115/80 123/64 139/87 Pulse Oximetry 98 99 94 Oxygen Delivery Method Room Air Room Air Room Air 02/03/25 16:14 02/03/25 16:14 02/03/25 16:14 Temperature Pulse Rate 79 81 81 Respiratory Rate Blood Pressure 128/84 101/73 82/68 L Pulse Oximetry Oxygen Delivery Method BMI result Body Mass Index 19.8 Vital signs have been reviewed and appear to be correct. Blood pressure normal. Heart rate normal. Respiratory rate normal. Temperature normal. Oxygen saturation normal. Const General: cooperative, healthy appearing and no acute distress Orientation/consciousness: oriented to person, oriented to place, oriented to time and patient oriented x3 Limitations: no limitations HENMT Head: Yes normocephalic and Yes atraumatic Ears: external ears normal General nose exam: Normal external nose present Face and sinus: Yes face symmetric Mouth: oropharynx normal and moist mucous membranes Throat: Yes uvula midline Eyes Pupils: Equal, round and reactive pupils present Neck Neck: Yes normal visual inspection, Yes supple and Yes no JVD Resp Effort & Inspection: normal respiratory effort and able to speak in complete sentences Auscultation: clear to auscultation bilaterally Cardio Rate: regular rate Rhythm: regular rhythm Heart sounds: S1 normal heart sound present and S2 normal heart sound present GI Palpation (GI): Soft to palpation and nontender Auscultation: normoactive bowel sounds General: Yes no CVA tenderness Back/Spine/Pelvis Back: no CVA tenderness Skin General skin exam: elasticity normal and turgor normal Neuro General: oriented to person, oriented to place, oriented to time, patient oriented x3, moves all extremities, no focal motor deficits and CN's II-XI intact bilaterally Cranial nerves: Yes Equal, round and reactive pupils present Cognition (Neuro): normal cognition Extrem General: Yes full ROM, Yes no pedal edema and Yes no calf tenderness Right lower extremity: lower leg Details: abrasion proximal lower leg anterior , ankle Details: tenderness Location: of the lateral malleolus and swelling Details: laterally; no ecchymosis and foot Details: toes with normal ROM and vascular exam Details: dorsalis pedis pulse present, posterior tibial pulse present and normal capillary refill Left lower extremity: lower leg Details: abrasion proximal lower leg anterior Psych Mental Status: mental status grossly normal Affect: normal affect Thought process: Normal thought process present Course Course Course Narrative: RME performed by Jacy Ramos PA-C. Patient is a 59 year old assigned male at presenting to the emergency department with right ankle pain after a fall. Patient states that he got dizzy and fell 2 hours prior to arrival, striking his head and injuring his right ankle. Detailed physical exam and review of systems are deferred to the booth usher. EKG, labs, imaging, and swabs ordered. Patient placed back in the waiting room pending room availability and results. Medications Administered Discontinued Medications Generic Name Dose Route Start Last Admin Trade Name Freq PRN Reason Stop Dose Admin Sodium Chloride 1,000 mls @ 999 mls/hr 02/03/25 15:30 02/03/25 16:48 Ns IV 02/03/25 16:30 Infused .Q1H1M JARED Infusion Sodium Chloride 1,000 mls @ 999 mls/hr 02/03/25 17:30 02/03/25 17:26 Ns IV 02/03/25 18:30 999 mls/hr .Q1H1M JARED Administration Insulin Human Regular 5 unit 02/03/25 15:29 02/03/25 15:47 Insulin Regular, Human 100 Unit/Ml 10 Ml Vial IVPUSH 02/03/25 15:30 5 unit ONCE ONE Administration Iohexol 100 ml 02/03/25 16:22 02/03/25 16:23 Iohexol 350 Mg/Ml 100 Ml Infus..Btl IV 02/03/25 16:23 65 ml ONCE ONE Administration Oxycodone HCl 5 mg 02/03/25 17:35 02/03/25 17:48 Oxycodone Hcl Immed Release 5 Mg Tablet PO 02/03/25 17:36 5 mg ONCE ONE Administration Sodium Zirconium Cyclosilicate 10 gm 02/03/25 15:25 02/03/25 15:47 Sodium Zirconium Cyclosilicate 10 Gm Powd.Pack PO 02/03/25 15:26 10 gm ONCE ONE Administration Procedures Orthopedic Splinting/Casting Injury #1: Side: right Lower Extremity Injury Location: ankle Lower Extremity Immobilizer: posterior splint and stirrup splint Additional Comments: +CMS prior to and after application of splint Medical Decision Making Medical Decision Making MDM Narrative: Patient is a 59-year-old male with history of essential tremor, HTN, HLD, bipolar disorder, schizoaffective disorder, T2DM presenting to the emergency department with complaint of right ankle pain and swelling after a fall/?syncope at home this morning. On exam patient is awake, A+Ox3, VS WNL, afebrile, normal neurological exam without focal deficits, physical exam findings as above. Given reported symptoms and physical exam findings, initial differential includes but is not limited to right ankle strain, sprain, fracture, syncope, seizure, orthostatic intolerance, electrolyte abnormality, ICH, PE, arrhythmia. Labs notable for no leukocytosis, hyperkalemia to 5.5, mildly elevated BUN/Cr, hyperglycemia without anion gap,troponin negative, elevated D-dimer. Viral serology negativ. EKG shows normal sinus rhythm, no significant changes or prolonged QTc. CTA chest ordered. X-ray right ankle ordered by triage provider notable for lateral malleolus fracture. CT head notable for no evidence of ICH. My interpretation is in agreement with the radiologist's interpretation. Orthostatic intolerance noted on orthostatic vital signs. Right ankle splinted as per procedure note. Patient was admitted here in Aug for similar episodes of syncope and orthostatic hypotension, was discharged home on fludricortisone which he is still taking. CTA notable for no PE. Differential Diagnosis Differential Diagnoses: The differential diagnosis associated with the presentation includes as per [facility] Admission/Observation Consideration of admission/observation: Escalation of care including admission/observation considered Consult Healthcare Provider Management of the patient was discussed with: Hospitalist (Dr. Tyson) Lab Data [facility] Lab Attestation statement: I reviewed the patient's lab results. as per [facility] 02/03/25 14:37 02/03/25 14:37 Labs: Lab Results 02/03/25 02/03/25 Range/Units 14:37 15:40 WBC 6.3 (4.8-10.8) X10*3/uL RBC 4.46 L (4.60-5.80) X10*6/uL Hgb 13.5 L (14.0-18.0) g/dl Hct 39.7 L (42.0-52.0) % MCV 89.0 (80.0-98.0) fL MCH 30.3 (27.0-33.0) pg MCHC 34.0 (31.0-36.0) g/dl RDW 13.2 (11.0-16.0) % Plt Count 183 D (160-400) X10*3/uL MPV 10.1 (9.4-12.4) fL Immature Gran % (Auto) 0.2 (0.0-0.4) % Neut % (Auto) 56.6 (45-73) % Lymph % (Auto) 26.0 (20-40) % [place] % (Auto) 8.7 (2-11) % Eos % (Auto) 7.7 H (0-4) % Baso % (Auto) 0.8 (0-2) % Lymph # (Auto) 1.7 (1.2-4.9) X10*3/uL [place] # (Auto) 0.6 (0.1-1.2) X10*3/uL Eos # (Auto) 0.5 H (0.0-0.4) X10*3/uL Baso # (Auto) 0.1 (0.0-0.2) X10*3/uL Abs Immat Gran (auto) 0.01 (0.00-0.03) X10*3/uL Absolute Neuts (auto) 3.6 (2.0-8.3) x10*3/uL Absolute Nucleated RBC 0.000 (0.0-0.012) X10*3/uL Nucleated RBC % (auto) 0.0 (0.0-0.2) /100WBC PT 11.7 (10.9-12.4) SEC INR 1.0 (0.9-1.1) D-Dimer High Sensitivty 1006 NG/ML Sodium 138 (135-145) mmol/L Potassium 5.5 H (3.3-5.1) mmol/L Chloride 99 (96-108) mmol/L Carbon Dioxide 26 (22-29) mmol/L Anion Gap 19 (12-20) BUN 18 H (9-16) mg/dL Creatinine 1.59 H (0.5-1.4) mg/dL Estim Creat Clear Calc 41.2 Estimated GFR 45 Random Glucose 476 H* (60-115) mg/dL Calcium 10.2 D (8.4-10.2) mg/dL Magnesium 2.3 (1.6-2.6) mg/dL Total Bilirubin 0.6 (0.0-1.0) mg/dL AST 37 (5-37) U/L ALT 58 H (0-40) U/L Alkaline Phosphatase 80 (39-117) U/L Troponin I High Sens < 2.7 (<3.5-35.0) ng/L Total Protein 7.6 (6.5-8.0) g/dL Albumin 4.0 (3.5-5.0) g/dL Urine Color Yellow Urine Appearance Clear Urine pH 5.5 (5.0-9.0) Ur Specific [place] 1.025 (1.005-1.025) Urine Protein Negative (Neg-Trace) mg/dL Urine Glucose (UA) >=1000 H (Negative) mg/dL Urine Ketones Negative (Negative) mg/dL Urine Blood Negative (Negative) Urine Nitrite Negative (Negative) Ur Leukocyte Esterase Negative (Negative) Urine RBC 0-2 (0-2) /HPF Urine WBC 0-5 (0-5) /HPF Ur Squamous Epith Cells 0-2 (0-2) /HPF Urine Bacteria None Seen (None Seen) Hyaline Casts 0-2 (0-2) /LPF Influenza Type A (PCR) NEGATIVE (Negative) Influenza Type B (PCR) NEGATIVE (Negative) RSV RNA Qual (PCR) NEGATIVE (Negative) SARS-CoV-2 RNA (RT-PCR) NEGATIVE (Negative) Independent Interpretation I performed an independent interpretation of an: EKG (Normal sinus rhythm, rate 88 beats per minute, normal DE interval and QTC) and Plain X-Ray Interpretation: Right ankle x-ray shows lateral malleolus fracture. Radiology Impression Discussion of test interpretation with radiology: I have reviewed the radiologist's reading. Radiologist Impression: CLINICAL HISTORY: pain, injury ; PT states previous FX about a year and a half ago, pain after fall today. Four views of the right ankle. COMPARISON: None FINDINGS: Lateral right ankle soft tissue swelling. Atherosclerotic vascular calcifications. Calcaneal enthesophyte present. Mildly displaced oblique fracture of the lateral malleolus of the distal fibula. Distal tibia appears intact. Ankle mortise appears symmetric on non-stressed views. Talar dome appears intact. Visualized tarsal bones appear intact. IMPRESSION: 1. Mildly displaced oblique fracture of the lateral malleolus of the distal fibula. There is overlying soft tissue swelling. External Record Review External record reviewed: Inpatient record, Office record and Outpatient record Discharge Plan Discharge Clinical Impression: Fracture of distal end of fibula, Syncope Patient Disposition: Admitted As Inpatient
--- NOTE | 2025-02-03 13:47 | ECG_ITS ---
Test Reason : DIZZINESS Blood Pressure : */* mmHG Vent. Rate : 88 BPM Atrial Rate : 88 BPM P-R Int : 156 ms QRS Dur : 92 ms QT Int : 350 ms P-R-T Axes : 13 11 16 degrees QTcB Int : 423 ms Normal sinus rhythm Normal ECG When compared with ECG of 04-Sep-2023 18:22, QRS axis Shifted right Criteria for Lateral infarct are no longer Present Nonspecific T wave abnormality, improved in Inferior leads Nonspecific T wave abnormality no longer evident in Lateral leads Referred By: Jacy Ramos Electronically Signed By: CYRUS SOLIS MD
--- OUTSIDE RECORDS SUMMARY | 2025-02-03 14:38 | XMS_ITS | Data Portability ---
Author Organization [facility] - Edi mandyLAKEISHA_CARDIO_CC_CCMOB [address] Address [address] [place] [address] Care Team Providers Care Coke Wheeler Name Role Phone NASIM BOLANOS Psychiatrist [facility] Assessment Encounter Date Assessment Date Assessment LastModified by Organization Details LastModified Time 05/16/2019 05/16/2019 30% stenosis from [facility] a year ago he says asymptomatic cv Patient had his psych meds changed and in mid February patient was falling and having increased weakness. March patient fell out of car and was unable to get up. In ED patient was ruled out for stroke and carotid within nl limits . Since stopping the Valium no further isssues with fall and weakness. [place] to be non cardiac creat elevated on admission and improved after IVF's. Due to fall/weakness will check echo to assess EF and r/o valvular disease . CV maddox doing well denies any complaints. EKG; SR tot chol 190, trig 240, HDL 37 , LDL 117 ---last OV started on Atorvastatin 20mg daily H/H -nl BUN/Creat 20/1.29, pot 5.1 AST 30/ ALT 49 PLAN Increase Atorvastatin 40mg daily Hepatic profile, lipids recheck in 4 months Echo now F/u one year as long as Echo normal ecg reviewed/interp eted today -nsr and normal normal carotids [email or web address] Not available 05/16/2019 14:13:30 03/14/2020 03/14/2020 The Patient (or patient's guardian) acknowledged, consented and participated in this virtual visit which was conducted over the phone. 1. Patient's identity was verbally confirmed 2. Provider's identity was verbally confirmed 3..The visit lasted 15 minutes. Please select the time duration of the visit and use the appropriate code. 11-20 minutes, [id number] Heart cath 2016 --30% stenosis asymptomatic cv Labs 10/2019 Creatinine 0.8 lfts normal otherwise, TC 229, HDL 32, TG 261, LDL 154, CBC hgb 15.8, plt 230 pt stopped taking all statin and fibrate -CV maddox doing well denies any complaints. EKG; SR baseline on metoprolol, aspirin, mikel-i [id number] lvef normal, mild lvh, mild mvp/ MR/TR PLAN start Atorvastatin 40mg daily Hepatic profile, lipids recheck F/u 3 months with lipids/labs ecg baseline -nsr and normal Not available 03/14/2020 16:09:10 Plan of Treatment Reminders Order Date Submit Date Provider Last Modified By Organization Details Last Modified Time Details Appointments None recorded. Lab lipid panel, serum 2019 020 [employer] [facility], [address], [place], [address], 0 03:08:56 hepatic function panel, serum 2019 020 [employer] [facility], [address], [place], [address], 0 03:08:57 lipid panel, serum 2018 019 [employer] [facility], [address], [place], [address], 9 05:34:59 hepatic function panel, serum 2018 020 [email or web address] [id number] [facility], [address], [place], [address], 0 15:53:12 CHEM8+ iStat 2018 019 [email or web address] 9 [facility] (For In-Office Services Only), [address] [place], [address], 9 13:50:32 hemoglobin A1C, fingerstic k 2018 019 [id number] 9 [facility] (For In-Office Services Only), [address] [place], [address], 9 15:56:32 CMP, serum or plasma 2018 019 [employer] [facility], [address], [place], [address], 9 16:57:26 CBC w/ auto diff 2018 019 [employer] [facility], [address], [place], [address], 9 16:56:47 lipid panel, serum 2018 019 [employer] [facility], [address], [place], [address], 9 11:29:50 Referral emergency medicine referral 2018 019 [email or web address] 5 [facility] Emergency [facility], [address], [place], [address], 9 16:18:26 Procedures None recorded. Surgeries None recorded. Imaging electrocar diogram 2018 019 [facility] [employer] (For In-Office Services Only), [address] [place], [address], 9 14:42:13 US, echocardio gram 2018 019 [facility], [address], [address], [place], [address], 9 12:31:51 US, echocardio gram, transthora cic, complete, w/ color flow 2018 019 [facility] - [facility], [address], [address], [place], [address], 0 11:26:08 electrocar diogram 2018 019 [email or web address] 5 [facility] (For In-Office Services Only), [address] [facility], [place], [address], 9 16:18:26 XR, chest, 2 view - right sided chest pain, described as a burning sensation. 2018 019 [facility], [address], [address], [place], [address], 9 17:11:50 Medication Orders atorvastat in 40 mg tablet 2019 020 [facility] #54468, [address] [place], [place], [id number], 0 16:07:54 atorvastat in 40 mg tablet 2018 019 [facility] #[id number], [address] [place], [place], [id number], 0 16:03:41 neomycin-p olymyxin-h ydrocort 3.5 mg/mL-10,0 00 unit/mL-1 % ear solution 2018 019 [facility] #31493, [address] [place], [place], [id number], 9 13:38:45 amoxicilli n 500 mg tablet 2018 [facility]78, [address] [facility], [place], [place], [id number], 9 13:32:37 Patient Targets Encounter Date Encounter Id Patient Goals Patient Target Last Modified By Organization Details Last Modified Time 09/07/2018 [id number] [employer] goal of Blood Pressure 140/90 Not available Not available Not available Blood Pressure 140/90 Not available Not available Not available Hemoglobin A1C <7.0 Not available Not available Not available [employer] goal of Glucose, Fasting 70-130 Not available Not available Not available Cholesterol, LDL <100 Not available Not available Not available Patient Instructions Encounter Date Encounter Id Patient Instructions Last Modified By Organization Details Last Modified Time 09/07/2018 [id number] presi? ? ?n arterial elevada: instrucciones de cuidado - [elevated blood pressure: care instructions] Not available 09/07/2018 15:26:00 diabetes tipo 2: instrucciones de cuidado - [type 2 diabetes: care instructions] Not available 09/07/2018 15:26:00 02/26/2019 [id number] go to emergency room [email or web address] Not available 02/26/2019 14:25:29 swimmer's ear: care instructions [id number] Not available 02/26/2019 13:50:32 type 2 diabetes: care instructions [id number] Not available 02/26/2019 14:26:22 high cholesterol : care instructions [id number] Not available 02/26/2019 14:26:22 A healthy lifestyle: care instructions [id number] Not available 03/03/2019 11:05:11 ear infection (otitis media): care instructions [id number] Not available 02/26/2019 13:50:32 Reason for Referral Emergency Medicine Referral for Chest pain Referring Physician: Joleen Estrada, Urgent Care, Encounter Date: 02/26/2019 Results Created Date Observation Date Name Description Value Unit Range Abnormal Flag Note LastModifiedBy Organization Detail LastModifiedTime 02/27/20 19 02/26/2019 hemog lobin A1C, finge rstic k HbA1c 7.8 Not Available [facility] (For In-Office Services Only) [address] [place], [address], 02/26/2019 13:49:48 08/09/20 18 08/09/2018 hemog lobin A1C, miesha knowles k HbA1c 7.3% Not Available [facility] Services Only) 1 [place], [address], 08/09/2018 08:23:35 08/14/20 18 08/14/2018 lipid panel , serum cholesterol total 122 mg/dL <=200 normal Not Available [facility] [address] [place], [address], 08/14/2018 21:03:27 08/14/20 18 08/14/2018 lipid panel , serum triglyceride s 175 mg/dL <=150 high Not Available [facility] [address] [place], [address], 08/14/2018 21:03:27 08/14/20 18 08/14/2018 lipid panel , serum HDL cholesterol 32 mg/dL >=40 low + Inter preta tive data: Pleas e note HDL and LDL calcu latio ns are not accur ate when Trigl yceri apolonia are great er than 400 mg/dL . Not Available [facility] [address] [place], [address], 08/14/2018 21:03:27 08/14/20 18 08/14/2018 lipid panel , serum low density lipoprotein chol 55 mg/dL <=130 normal Not Available [facility] [address] [place], [address], 08/14/2018 21:03:27 08/14/20 18 08/14/2018 lipid panel , serum LDL/HDL ratio 1.7 <=3.6 normal Not Available [facility] [address] [place], [address], 08/14/2018 21:03:27 08/14/20 18 08/14/2018 GFR, estim ated (eGFR ), serum eGFR- 94 >=60 normal Not Available [facility] [address], [address], 08/14/2018 21:03:27 08/14/20 18 08/14/2018 GFR, estim ated (eGFR ), serum eGFR- non 78 >=60 normal + Inter preta tive data: Value s are race depen dent and units are in ml/mi n/1.7 3m2. The MDRD formu la for estim ation of GFR (eGFR ) was valid ated in a popul ation of adult s 19-70 years old with slowl y-dec linin g or stabl e reduc ed kidne y funct ion and eGFR up to 90. It shoul d not be used alone to predi ct GFR in unsta ble patie nts and beyon d this age range . Decre ased GFR for >= 3 month s to level s of 30-59 is class ified as chron ic renal disea se, Stage 3, and 15-29 as Stage 4. Not Available [facility] [address], [address], 08/14/2018 21:03:27 08/14/20 18 08/14/2018 CMP, serum or plasm a sodium level 137 mmol/ L 135-14 5 normal Not Available [facility] [address], [address], 08/14/2018 21:03:28 08/14/20 18 08/14/2018 CMP, serum or plasm a potassium level 5.2 mmol/ L 3.5-5. 4 normal Not Available [facility] [address], [address], 08/14/2018 21:03:28 08/14/20 18 08/14/2018 CMP, serum or plasm a chloride level 101 mmol/ L 98-110 normal Not Available [facility] [address], [address], 08/14/2018 21:03:28 08/14/20 18 08/14/2018 CMP, serum or plasm a carbon dioxide 29 mmol/ L 22-32 normal Not Available [facility] [address], [address], 08/14/2018 21:03:28 08/14/20 18 08/14/2018 CMP, serum or plasm a anion gap (cls) 12 mmol/ L 9-22 normal Not Available [facility] [address], [address], 08/14/2018 21:03:28 08/14/20 18 08/14/2018 CMP, serum or plasm a glucose level 157 mg/dL 70-99 high + Inter preta tive data: Fasti ng plasm a gluco se value s: Melissa l: <100 mg/dL Impai red fasti ng gluco se: >100 mg/dL but <126 mg/dL Abnor mal fasti ng gluco se: >or = 126 mg/dL Abnor mal fasti ng gluco ses (>= 126 mg/dL ) shoul d be confi rmed by repea t testi ng on anoth er day or by doing an oral gluco se thomas ance. Not Available [facility] [address], [address], 08/14/2018 21:03:28 08/14/20 18 08/14/2018 CMP, serum or plasm a blood urea nitrogen (cls) 13 mg/dL 7-25 normal Not Available [facility] [address], [address], 08/14/2018 21:03:28 08/14/20 18 08/14/2018 CMP, serum or plasm a creatinine 1.0 mg/dL 0.7-1. 5 normal Not Available [facility] [address], [address], 08/14/2018 21:03:28 08/14/20 18 08/14/2018 CMP, serum or plasm a osmolality calculated (cls) 293 mOsm/ kg 280-30 0 normal Pleas e note that the calcu latio n for Osmol ethan garza has gomez ed 2017* Previ ous Calcu latio n: ( 1.86 * Na ) + ( Glu / 18.0 ) + ( BUN / 2.80 ) + 9.0 Curre nt Calcu latio n: (1.86 *(Na+ K))+( 1.15* (Glu* 0.055 5))+( BUN*0 .357) +14 Curre nt refer ence range will remai n the same at 280-3 00 mOSM/ kg Pleas e note that there will be a one-t deepthi incre ase of appro ximat herman 5% in patie nt resul ts. Not Available [facility] [address], [address], 08/14/2018 21:03:28 08/14/20 18 08/14/2018 CMP, serum or plasm a protein, total 7.2 g/dL 6.0-8. 5 normal Not Available [facility] [address], [address], 08/14/2018 21:03:28 08/14/20 18 08/14/2018 CMP, serum or plasm a bilirubin, total 0.8 mg/dL 0.3-1. 8 normal Not Available [facility] [address], [address], 08/14/2018 21:03:28 08/14/20 18 08/14/2018 CMP, serum or plasm a albumin level 4.1 g/dL 3.4-5. 1 normal Not Available [facility] [address], [address], 08/14/2018 21:03:28 08/14/20 18 08/14/2018 CMP, serum or plasm a albumin/glob ulin ratio 1.3 1.0-2. 2 normal Not Available [facility] [address], [address], 08/14/2018 21:03:28 08/14/20 18 08/14/2018 CMP, serum or plasm a calcium level 9.7 mg/dL 8.5-10 .5 normal Not Available [facility] [address], [address], 08/14/2018 21:03:28 08/14/20 18 08/14/2018 CMP, serum or plasm a alkaline phosphatase 63 intun it/L 38-126 normal Not Available [facility] [address], [address], 08/14/2018 21:03:28 08/14/20 18 08/14/2018 CMP, serum or plasm a AST asparate aminotransfe rase 19 intun it/L 15-41 normal Not Available [facility] [address], [address], 08/14/2018 21:03:28 08/14/20 18 08/14/2018 CMP, serum or plasm a ALT alanine aminotransfe rase 26 intun it/L 17-63 normal + Inter preta tive data: Patie nts treat ed with Sulfa pamela ine may gener ate a false low resul t for ALT by appro ximat herman 30%. Not Available [facility] [address], [address], 08/14/2018 21:03:28 08/14/20 18 08/15/2018 HbA1c (hemo globi n A1c), blood hemoglobin A1C (glyco) 7.1 % 4.0-7. 0 high + Inter preta tive data: 4.0 to 6.0 Non Diabe tic Range < 7.0 ADA Goal for Diabe tics Hemog lobin A1c is perfo rmed using an Ion Excha nge High Perfo rmanc e Liqui d Chrom atogr aphy (HPLC ) metho d certi fied by the Kashif villavicencio Glyco hemog lobin Stand tereza ation Progr am. Not Available [facility] [address], [address], 08/15/2018 09:26:32 02/27/20 19 02/27/2019 lipid panel , serum cholesterol, total 190 mg/dL <200 normal Not Available [facility] [address], [place], [address], 02/27/2019 11:29:50 02/27/2002/27/2019 lipid panel , serum HDL cholesterol 37 mg/dL >40 low Not Available [facility] [place] [facility] [address], [place], [address], 02/27/2019 11:29:50 02/27/2002/27/2019 lipid panel , serum triglyceride s 240 mg/dL <150 high Not Available [facility] [address], [place], [address], 02/27/2019 11:29:50 02/27/2002/27/2019 lipid panel , serum LDL-choleste rol 117 mg/dL _(darling c) high Refer ence range : <100 Peter able range <100 mg/dL for prima ry preve ntion ; <70 mg/dL for patie nts with CHD or diabe tic patie nts with > or = 2 CHD risk facto rs. LDL-C is now calcu lated using the Heather n-Hop kins calcu ravi n, which is a valid ated novel shawandao manuela carmona r accur acy than the Fried rachel equat ion in the estim ation of LDL-C . Heather rodriguez SS et al. ONESIMO. 2013; 310(1 9): 2061- 2068 (http ://ed ucati on.Qu estDi vetoos Boujus. com/f aq/FA Q164) Not Available [facility] [address], [place], [address], 02/27/2019 11:29:50 02/27/2002/27/2019 lipid panel , serum chol/HDLC ratio 5.1 (calc ) <5.0 high Not Available [facility] [address], [place], [address], 02/27/2019 11:29:50 02/27/2002/27/2019 lipid panel , serum non HDL cholesterol 153 mg/dL _(darling c) <130 high For patie nts with diabe cristhian plus 1 major ASCVD risk facto r, treat ing to a non-H DL-C goal of <100 mg/dL (LDL- C of <70 mg/dL ) is consi dered a thera peuti c optio n. Not Available [facility] [place] [facility] [address], [place], [address], 02/27/2019 11:29:50 02/27/2002/27/2019 CMP, serum or plasm a glucose 138 mg/dL 65-99 high Fasti ng refer ence inter andrea For someo ne witho ut known diabe cristhian, a gluco se value >125 mg/dL indic ates that they may have diabe cristhian and this shoul d be confi rmed with a follo w-up test. Not Available [facility] [place] [facility] [address], [place], [address], 02/27/2019 11:29:50 02/27/2002/27/2019 CMP, serum or plasm a urea nitrogen (BUN) 20 mg/dL 7-25 normal Not Available [facility] [place] [facility] [address], [place], [address], 02/27/2019 11:29:50 02/27/2002/27/2019 CMP, serum or plasm a creatinine 1.29 mg/dL 0.70-1 .33 normal For patie nts >49 years of age, the refer ence limit for Creat inine is appro ximat herman 13% highe r for peopl e ident ified as Afric an-Am armen n. Not Available [facility] [place] [facility] [address], [place], [address], 02/27/2019 11:29:50 02/27/20 19 02/27/2019 CMP, serum or plasm a eGFR non-afr. malaysian 62 mL/mi n/1.7 3m2 > or = 60 normal Not Available [facility] [address], [place], [address], 02/27/2019 11:29:50 02/27/20 19 02/27/2019 CMP, serum or plasm a eGFR 72 mL/mi n/1.7 3m2 > or = 60 normal Not Available [facility] [address], [place], [address], 02/27/2019 11:29:50 02/27/20 19 02/27/2019 CMP, serum or plasm a BUN/creatini ne ratio NOT APPLIC ABLE (calc ) 6-22 Not Available [facility] [address], [place], [address], 02/27/2019 11:29:50 02/27/20 19 02/27/2019 CMP, serum or plasm a sodium 139 mmol/ L 135-14 6 normal Not Available [facility] [address], [place], [address], 02/27/2019 11:29:50 02/27/20 19 02/27/2019 CMP, serum or plasm a potassium 5.1 mmol/ L 3.5-5. 3 normal Not Available [facility] [address] [place], [address], 02/27/2019 11:29:50 02/27/20 19 02/27/2019 CMP, serum or plasm a chloride 100 mmol/ L 98-110 normal Not Available [facility] [address] [place], [address], 02/27/2019 11:29:50 02/27/20 19 02/27/2019 CMP, serum or plasm a carbon dioxide 31 mmol/ L 20-32 normal Not Available [facility] [place] [facility] [address], [place], [address], 02/27/2019 11:29:50 02/27/20 19 02/27/2019 CMP, serum or plasm a calcium 9.3 mg/dL 8.6-10 .3 normal Not Available [facility] [address], [place], [address], 02/27/2019 11:29:50 02/27/2002/27/2019 CMP, serum or plasm a protein, total 7.6 g/dL 6.1-8. 1 normal Not Available [facility] [address], [place], [address], 02/27/2019 11:29:50 02/27/20 19 02/27/2019 CMP, serum or plasm a albumin 4.4 g/dL 3.6-5. 1 normal Not Available [facility] [address], [place], [address], 02/27/2019 11:29:50 02/27/2002/27/2019 CMP, serum or plasm a globulin 3.2 g/dL_ (calc ) 1.9-3. 7 normal Not Available [facility] [address], [place], [address], 02/27/2019 11:29:50 02/27/2002/27/2019 CMP, serum or plasm a albumin/glob ulin ratio 1.4 (calc ) 1.0-2. 5 normal Not Available [facility] [address], [place], [address], 02/27/2019 11:29:50 02/27/2002/27/2019 CMP, serum or plasm a bilirubin, total 0.6 mg/dL 0.2-1. 2 normal Not Available [facility] [address], [place], [address], 02/27/2019 11:29:50 02/27/20 19 02/27/2019 CMP, serum or plasm a alkaline phosphatase 66 U/L 40-115 normal Not Available [facility] [address], [place], [address], 02/27/2019 11:29:50 02/27/20 19 02/27/2019 CMP, serum or plasm a AST 30 U/L 10-35 normal Not Available [facility] [address], [place], [address], 02/27/2019 11:29:50 02/27/20 19 02/27/2019 CMP, serum or plasm a ALT 49 U/L 9-46 high Not Available [facility] [address], [place], [address], 02/27/2019 11:29:50 02/27/20 19 02/27/2019 CBC w/ auto diff white blood cell count 8.8 thous and/u L 3.8-10 .8 normal Not Available [facility] [address] [place], [address], 02/27/2019 11:29:51 02/27/20 19 02/27/2019 CBC w/ auto diff red blood cell count 4.38 lisa on/uL 4.20-5 .80 normal Not Available [facility] [address] [place], [address], 02/27/2019 11:29:51 02/27/2002/27/2019 CBC w/ auto diff hemoglobin 14.5 g/dL 13.2-1 7.1 normal Not Available [facility] [address] [place], [address], 02/27/2019 11:29:51 02/27/2002/27/2019 CBC w/ auto diff hematocrit 42.4 % 38.5-5 0.0 normal Not Available [facility] [address], [place], [address], 02/27/2019 11:29:51 02/27/20 19 02/27/2019 CBC w/ auto diff MCV 96.8 fL 80.0-1 00.0 normal Not Available [facility] [address], [place], [address], 02/27/2019 11:29:51 02/27/20 19 02/27/2019 CBC w/ auto diff MCH 33.1 pg 27.0-3 3.0 high Not Available [facility] [address], [place], [address], 02/27/2019 11:29:51 02/27/20 19 02/27/2019 CBC w/ auto diff MCHC 34.2 g/dL 32.0-3 6.0 normal Not Available [facility] [address], [place], [address], 02/27/2019 11:29:51 02/27/20 19 02/27/2019 CBC w/ auto diff RDW 14.0 % 11.0-1 5.0 normal Not Available [facility] [address], [place], [address], 02/27/2019 11:29:51 02/27/20 19 02/27/2019 CBC w/ auto diff platelet count 205 thous and/u L 140-40 0 normal Not Available [facility] [address], [place], [address], 02/27/2019 11:29:51 02/27/2002/27/2019 CBC w/ auto diff MPV 10.2 fL 7.5-12 .5 normal Not Available [facility] [address], [place], [address], 02/27/2019 11:29:51 06/03/20 19 02/27/2019 CBC w/ auto diff absolute neutrophils 6424 cells /uL 1500-7 800 normal Not Available [facility] [place] [facility] [address], [place], [address], 02/27/2019 11:29:51 02/27/20 19 02/27/2019 CBC w/ auto diff absolute lymphocytes 1522 cells /uL 850-39 00 normal Not Available [facility] [place] [facility] [address], [place], [address], 02/27/2019 11:29:51 02/27/20 19 02/27/2019 CBC w/ auto diff absolute monocytes 678 cells /uL 200-95 0 normal Not Available [facility] [place] [facility] [address], [place], [address], 02/27/2019 11:29:51 02/27/20 19 02/27/2019 CBC w/ auto diff absolute eosinophils 150 cells /uL 15-500 normal Not Available [facility] [place] [facility] [address], [place], [address], 02/27/2019 11:29:51 02/27/20 19 02/27/2019 CBC w/ auto diff absolute basophils 26 cells /uL 0-200 normal Not Available [facility] [place] [facility] [address], [place], [address], 02/27/2019 11:29:51 02/27/2002/27/2019 CBC w/ auto diff neutrophils 73 % normal Not Available [facility] [place] [facility] [address], [place], [address], 02/27/2019 11:29:51 02/27/20 19 02/27/2019 CBC w/ auto diff lymphocytes 17.3 % normal Not Available [facility] [place] [facility] [address], [place], [address], 02/27/2019 11:29:51 02/27/20 19 02/27/2019 CBC w/ auto diff monocytes 7.7 % normal Not Available [facility] [place] [facility] [address], [place], [address], 02/27/2019 11:29:51 02/27/20 19 02/27/2019 CBC w/ auto diff eosinophils 1.7 % normal Not Available [facility] [place] [facility] [address], [place], [address], 02/27/2019 11:29:51 02/27/20 19 02/27/2019 CBC w/ auto diff basophils 0.3 % normal Not Available [facility] [place] [facility] [address], [place], [address], 02/27/2019 11:29:51 02/27/20 19 02/26/2019 CHEM8 + iStat Na 140 normal Not Available [facility] (For In-Office Services Only) 1 [place], [address], 02/26/2019 13:49:42 02/27/20 19 02/26/2019 CHEM8 + iStat K 4.4 normal Not Available [facility] (For In-Office Services Only) 1 [place], [address], 02/26/2019 13:49:42 02/27/20 19 02/26/2019 CHEM8 + iStat ica 1.22 normal Not Available [facility] Physician [place] Orders (For In-Office Services Only) 1 [place], [address], 02/26/2019 13:49:42 02/27/20 19 02/26/2019 CHEM8 + iStat glu 149 high Not Available [facility] (For In-Office Services Only) 1 [place], [address], 02/26/2019 13:49:42 02/27/20 19 02/26/2019 CHEM8 + iStat BUN/urea 21 normal Not Available [facility] Physician [facility] Orders (For In-Office Services Only) 1 [place], [address], 02/26/2019 13:49:42 02/27/20 19 02/26/2019 CHEM8 + iStat TCO2 26 normal Not Available [facility] Orders (For In-Office Services Only) 1 [place], [address], 02/26/2019 13:49:42 02/27/20 19 02/26/2019 CHEM8 + iStat crea 1.2 intermedi ate Not Available [facility] Physician [facility] Orders (For In-Office Services Only) 1 [place], [address], 02/26/2019 13:49:42 02/27/20 19 02/26/2019 CHEM8 + iStat HCT 44 normal Not Available [facility]ician [facility] Orders (For In-Office Services Only) 1 [place], [address], 02/26/2019 13:49:42 02/27/20 19 02/26/2019 CHEM8 + iStat anion gap 22 high Not Available [facility] Physician [facility] Orders (For In-Office Services Only) 1 [place], [address], 02/26/2019 13:49:42 02/27/20 19 02/26/2019 CHEM8 + iStat HGB 15 normal Not Available [facility] Orders (For In-Office Services Only) 1 [place], [address], 02/26/2019 13:49:42 02/27/20 19 02/26/2019 CHEM8 + iStat cL 98 normal Not Available [facility] Orders (For In-Office Services Only) 1 [place], [address], 02/26/2019 13:49:42 02/27/20 19 elect rocar diogr am No observ ation record ed. [email or web address] Not Available 12/2018 09:20:32 02/27/20 19 02/26/2019 elect rocar diogr am No observ ation record ed. BARCODE Not Available 2018 15:47:24 03/14/20 19 02/26/2019 XR, chest , 2 view No observ ation record ed. [facility] [address] [facility], [place], [address], 03/14/2019 17:19:58 05/16/20 19 elect rocar diogr am No observ ation record ed. [email or web address] Not Available 14:08:23 08/04/20 19 08/03/2019 , [facility] ardio gram No observ ation record ed. [email or web address] [facility] [address] [facility], [place], [address], 11/12/2019 09:51:39 12/07/19 20 10/18/2019 exerc ise stres s test No observ ation record ed. [email or web address] Not Available 2019 15:08:01 12/07/19 20 elect rocar diogr am No observ ation record ed. [email or web address] Not Available 2019 15:20:44 02/25/20 20 02/20/2020 , [facility] ardio gram No observ ation record ed. [facility] [address], [place], [address], 03/14/2020 15:58:58 Result Notes None recorded. Problems Name Problem SNOMED Code Status Onset Date Resolution Date Notes Provider Name and Address Organization Details Recorded Time Bipolar disorder 73025253 Active 2017 Paige Tarango INTERNAL MEDICINE SPECIALIST [address], [place], [address] , [facility] 8 15:31:58 Hypertensive disorder 99429677 Active 2017 Paige Tarango INTERNAL MEDICINE SPECIALIST [address], [place], [address] , [facility] 8 15:32:22 Uncontrolled type 2 diabetes mellitus 817569926 Active 2017 Paige Tarango INTERNAL MEDICINE SPECIALIST [address], [place], [address] , [facility] 8 15:32:37 Neuropathy due to diabetes mellitus 493322804 Active 2017 Paige Tarango INTERNAL MEDICINE SPECIALIST [address], [facility] [place], [address] , [facility] 8 15:32:48 Anxiety 06308202 Active 2017 Paige Tarango INTERNAL MEDICINE SPECIALIST [address], [facility] [place], [address] , [facility] 8 15:39:52 Degeneration of cervical intervertebr al disc 26684343 Active 2017 S/P fusion ÁLVARO NORMAN MD [address], [place], [address] , [facility] 8 12:12:26 Spasm of back muscles 607627194 Active 2017 ÁLVARO NORMAN MD [address], [facility] [place], [address] , [facility] 8 12:12:41 Coronary arterioscler osis 33349385 Active 2017 Last cath 2015. ÁLVARO NORMAN MD [address], [facility] [place], [address] , [facility] 8 12:26:24 Chronic tremor 284440207 Active 2017 ÁLVARO NORMAN MD [address], [facility] [place], [address] , [facility] 8 12:28:20 Problem Notes None recorded. Procedures Surgical History Date Name Laterality Status Provider Name and Address Organization Details Recorded Time 12/17/19 18 Functional Assessment (Rhodes Index) completed ÁLVARO NORMAN MD [address], [place], [address], [facility] 12/16/2017 12:01:30 09/26/19 18 catheterization of left heart completed Joleen Estrada PA-C [address], [place], [address], [facility] 03/03/2019 11:02:22 [facility] 14:24:57 Imaging Results Imaging Date Name Status LastModified by Organization Details LastModified Time 02/26/2019 electrocardiogram completed [email or web address] Inform ation not available 02/27/2019 09:20:32 02/26/2019 electrocardiogram completed [email or web address] Informa tion not available 02/26/2019 15:47:24 02/26/2019 XR, chest, 2 view completed [address] [place] [address], [place], [address], 03/14/2019 17:19:58 05/16/2019 electrocardiogram completed [email or web address] Info rmation not available 05/16/2019 14:08:23 08/03/2019 US, echocardiogram completed [email or web address] [facility] [address] [place] [address], [place], [address], 11/12/2019 09:51:39 10/18/2019 exercise stress test completed Info rmation not available 12/10/2019 15:08:01 12/07/2019 electrocardiogram completed Informa tion not available 12/10/2019 15:20:44 02/20/2020 US, echocardiogram completed [facility] [address], [place], [address], 03/14/2020 15:58:58 Procedure Notes None recorded. Medical Equipment None Reported. Allergies No known drug allergies Medications Name Sig Start Date Stop Date Status Note LastModified by Organization Details LastModified Time insulin syringe 31g x 5/16 1 ml misc 03/14 completed Not Available Not Available Not Available quetiapin e 25 mg tablet 08/09 completed Not Available Not Available Not Available cyclobenz aprine 10 mg tablet TK 1 T PO TID active Not Available Not Available No t Available hydroxyzi ne pamoate 100 mg capsule 08/09 completed Not Available Not Available Not Available amoxicill in 500 mg capsule 03/14 completed Not Available Not Available Not Available atorvasta tin 40 mg tablet TAKE 1 TABLET BY MOUTH EVERY DAY FOR 30 DAYS 2019 active Not Available Not Available Not Avai lable neomycin- polymyxin -hydrocor t 3.5 mg/mL-10, 000 unit/mL-1 % ear solution INSTILL 4 DROPS INTO AFFECTED EAR(S) BY OTIC ROUTE 3 TIMES PER DAY 05/16 completed Not Available Not Available Not Available clonidine HCl 0.1 mg tablet TK 1 TO 2 TS PO PRF WITHDRAW AL SYMPTOMS FOR 10 DAYS active Not Available Not Available No t Available atorvasta tin 20 mg tablet Take 1 tablet every day by oral route at dinner. 03/14 completed Not Available Not Available Not Available quetiapin e 300 mg tablet TK 1 T PO QHS active Not Available Not Available No t Available loperamid e 2 mg capsule active Not Available Not Available Not Available atorvasta tin 10 mg tablet Take 1 tablet every day by oral route. 12/16 completed Not Available Not Available Not Available Prozac 40 mg capsule Take 1 capsule every day by oral route. active Not Available Not Available No t Available ibuprofen 800 mg tablet 03/14 completed Not Available Not Available Not Available levetirac etam 500 mg tablet 05/16 completed Not Available Not Available Not Available risperido ne 4 mg tablet 08/09 completed Not Available Not Available Not Available hydrocodo ne 5 mg-acetam inophen 325 mg tablet 03/14 completed Not Available Not Available Not Available Nystop 100,000 unit/gram topical powder APPLY A THIN LAYER BID FOR 25 DAYS active Not Available Not Available No t Available quetiapin e 200 mg tablet 05/16 completed Not Available Not Available Not Available divalproe x 500 mg tablet,de layed release TK 2 TS PO QD active Not Available Not Available No t Available hydrocodo ne 10 mg-acetam inophen 325 mg tablet 05/16 completed Not Available Not Available Not Available omeprazol e 40 mg capsule,d elayed release TK ONE C PO QD active Not Available Not Available No t Available aspirin 81 mg tablet,de layed release Take 1 tablet every day by oral route. 2017 active Over the counter Not Available Not Available Not Available tramadol 50 mg tablet 01/31 completed drug interact ion with psych meds Not Available Not Available Not Available quetiapin e 100 mg tablet Take 1 tablet twice a day by oral route. active Not Available Not Available No t Available amoxicill in 500 mg tablet Take 2 tablets 3 times a day by oral route for 7 days. 05/16 completed Not Available Not Available Not Available baclofen 20 mg tablet TAKE 1 TABLET BY MOUTH ONE TO TWICE DAILY 05/16 completed Not Available Not Available Not Available ketorolac 10 mg tablet TK 1 T PO QD active Not Available Not Available No t Available risperido ne 2 mg tablet TAKE 1 TABLET BY MOUTH TWICE DAILY 08/09 completed Not Available Not Available Not Available lorazepam 0.5 mg tablet 01/31 completed Not Available Not Available Not Available tamsulosi n 0.4 mg capsule TK 1 C PO QHS active Not Available Not Available No t Available gabapenti n 800 mg tablet TAKE 1 TABLET BY MOUTH TWICE DAILY active Not Available Not Available No t Available trazodone 100 mg tablet TK 1 T PO QHS active Not Available Not Available No t Available meclizine 25 mg tablet 05/16 completed Not Available Not Available Not Available lithium carbonate 300 mg capsule 05/16 completed Rx by Annalee Green Not Available Not Available Not Available buspirone 30 mg tablet 05/26 completed Not Available Not Available Not Available buspirone 10 mg tablet 08/09 completed Rx by Annalee sharpe Not Available Not Available Not Available divalproe x ER 500 mg tablet,ex tended release 24 hr 05/16 completed Not Available Not Available Not Available clonazepa m 2 mg tablet 05/16 completed Not Available Not Available Not Available Humulin 70/30 U-100 Insulin 100 unit/mL subcutane ous suspensio n USE UTD SUBCUTAN EOUSLY BID FOR 90 DAYS active Not Available Not Available No t Available benztropi ne 1 mg tablet 05/26 completed Rx by Psychiat rist Not Available Not Available Not Available metoprolo l tartrate 50 mg tablet TK 1 T PO BID active Not Available Not Available No t Available benztropi ne 2 mg tablet 05/16 completed Not Available Not Available Not Available diclofena c sodium 75 mg tablet,de layed release 05/16 completed Not Available Not Available Not Available hydroxyzi ne HCl 25 mg tablet TK 1 TO 2 TS PO PRN FOR WITHDRAW AL SYMPTOMS FOR 10 DAYS SUPPLY active Not Available Not Available No t Available morphine ER 15 mg tablet,ex tended release TK 1 T PO Q 12 H FOR NON ACUTE PAIN active Not Available Not Available No t Available pravastat in 20 mg tablet Take 1 tablet every day by oral route. 05/26 completed Not Available Not Available Not Available lisinopri l 5 mg tablet TK 1 T PO QD active Not Available Not Available No t Available diclofena c sodium 50 mg tablet,de layed release TAKE 1 TABLET BY MOUTH WITH FOOD ONLY NEEDED FOR PAIN, UP TO ONCE OR TWICE A DAY DIRECTED 08/09 completed Not Available Not Available Not Available ziprasido ne 40 mg capsule TK 1 C PO QHS active Not Available Not Available No t Available lorazepam 1 mg tablet Take 1 tablet 3 times a day by oral route as needed for 30 days. 01/31 completed Not Available Not Available Not Available zaleplon 5 mg capsule 08/09 completed Not Available Not Available Not Available testoster one cypionate 200 mg/mL intramusc ular oil active Not Available Not Available Not Available levofloxa ewa 500 mg tablet 03/14 completed Not Available Not Available Not Available oxycodone -acetamin ophen 7.5 mg-325 mg tablet TK 1 T PO Q 8 H FOR PAIN active Not Available Not Available No t Available zolpidem 10 mg tablet Take 1 tablet as needed by oral route at bedtime for 30 days. 01/31 completed Not Available Not Available Not Available methylpre dnisolone 4 mg tablets in a dose pack 05/16 completed Not Available Not Available Not Available fluoxetin e 20 mg capsule TK 3 CS PO QD FOR PTSD active Not Available Not Available No t Available risperido ne 1 mg tablet 05/16 completed Not Available Not Available Not Available lisinopri l 2.5 mg tablet TAKE 1 TABLET BY MOUTH EVERY DAY in am 09/07 completed Not Available Not Available Not Available dicyclomi ne 10 mg capsule active Not Available Not Available Not Available buspirone 15 mg tablet 05/16 completed Rx by Psychiat calvint - Dr Green Not Available Not Available Not Available rosuvasta tin 40 mg tablet TK 1 T PO QD active Not Available Not Available No t Available eszopiclo ne 1 mg tablet 08/09 completed Not Available Not Available Not Available Humulin 70/30 U-100 Insulin 10/06 completed Not Available Not Available Not Available aripipraz ole 2 mg tablet 08/09 completed Not Available Not Available Not Available quetiapin e 50 mg tablet 05/16 completed Not Available Not Available Not Available cholecalc iferol (vitamin D3) 1,250 mcg (50,000 unit) capsule Take 1 capsule twice a week by oral route at dinner. 05/16 completed Not Available Not Available Not Available fenofibra te 54 mg tablet 03/14 completed pt not aware of being prescrib ed Not Available Not Available Not Available Accu-Chek Sana Plus test strips USE 1 STRIP VIA METER ONCE A DAY active Not Available Not Available No t Available Accu-Chek Sana Plus Meter USE UTD ONCE A DAY active Not Available Not Available No t Available Narcan 4 mg/actuat ion nasal spray JUSTEN REP ALN active Not Available Not Available No t Available Shingrix (PF) 50 mcg/0.5 mL intramusc ular suspensio n, kit active Not Available Not Available Not Available Flucelvax Quad (PF) 60 mcg (15 mcg x 4)/0.5 mL IM syringe active Not Available Not Available Not Available Vitals Date Recorded Body height Body mass index (BMI) Body weight Body temperature Respiratory rate Oxygen saturation Oxygen saturation in Arterial blood by Pulse oximetry Heart rate Systolic blood pressure Diastolic blood pressure Provider Name and Address Organization Details Last Updated DateTime 8 175.26 cm 27 kg/m2 33851.4 g 97.8 [degF] 17 /min 100 % 100 % 97 /min 113 mm[Hg] 83 mm[Hg] Rebekah Shaikh [facility] [place] - [facility] 8 14:39:30 Date Recorded Body height Body mass index (BMI) Body weight Heart rate Respiratory rate Oxygen saturation Oxygen saturation in Arterial blood by Pulse oximetry Body temperature Systolic blood pressure Diastolic blood pressure Provider Name and Address Organization Details Last Updated DateTime 9 175.26 cm 27.3 kg/m2 59107.5 9 g 98 /min 18 /min 94 % 94 % 98.2 [degF] 112 mm[Hg] 81 mm[Hg] Laura Sanabria [facility] 9 13:36:30 Date Recorded Body height Body mass index (BMI) Body weight Heart rate Systolic blood pressure Diastolic blood pressure Provider Name and Address Organization Details Last Updated DateTime 9 175.26 cm 27.2 kg/m2 57588 g 86 /min 110 mm[Hg] 70 mm[Hg] Kely Christensen [facility] 9 13:33:29 Date Recorded Body height Provider Name an d Address Organization Details Last Updated DateTime 03/14/2020 175.26 cm Apolonia Kuhnell [facility] 03/14/2020 15:56:33 Social History Question Answer Notes LastModified by Organizat ion Details LastModified Time Tobacco Smoking Status [facility]2017 15:05:37 What Is Your Level Of Alcohol Consumption? Occasional Very Little Information not available 10/31/2017 How Many Years Have You Consumed Alcohol? 020 Information not available 12/16/2017 Are You Blind Or Do You Have Difficulty Seeing? No Information not available 10/06/2017 What Is Your Level Of Caffeine Consumption? Moderate 1 Cup Of Coffee Per Day, Diet Soda Information not available 10/31/2017 How Much Tobacco Do You Chew? None Information not available 10/31/2017 Are You Currently Employed? No Information not available 12/16/2017 Are You Deaf Or Do You Have Serious Difficulty Hearing? No Information not available 10/06/2017 What Type Of Diet Are You Following? REGULAR Information not available 10/31/2017 Which Illicit Or Recreational Drugs Have You Used? None Reported Information not available 10/31/2017 How Many Days Of Moderate To Strenuous Exercise, Like A Brisk Walk, Did You Do In The Last 7 Days? 0 Information not available 12/16/2017 On Those Days That You Engage In Moderate To Strenuous Exercise, How Many Minutes, On Average, Do You Exercise? 0 Information not available 12/16/2017 How Hard Is It For You To Pay For The Very Basics Like Food, Housing, Medical Care, And Heating? [id number] Information not available 12/16/2017 How Many Days In The Past Year Have You Had A Heavy Drinking Consumption (4+ Female, 5+ Male)? 0 Information not available 10/31/2017 Hard Of Hearing Or Deaf In One Or Both Ears? No Information not available 10/31/2017 Legally Blind In One Or Both Eyes? No Information not available 10/31/2017 Live Alone Or With Others? With Others Information not available 10/31/2017 Marital Status Informatio n not available 12/16/2017 What Was The Date Of Your Most Recent Tobacco Screening? 03/03/2019 Information not available 04/20/2019 How Many Children Do You Have? 3 Information not available 10/31/2017 Performs Monthly Self-breast Exam? No Information not available 10/31/2017 Seat Belts Used Routinely Yes Information not available 10/31/2017 Are You Sexually Active? No Information not available 10/31/2017 Are You Passively Exposed To Smoke? No Information not available 10/31/2017 How Much Tobacco Do You Smoke? No Information not available 10/06/2017 Do You Feel Stressed (tense, Restless, Nervous, Or Anxious, Or Unable To Sleep At Night)? [id number] Information not available 12/16/2017 Do You Use Sunscreen Routinely? Yes Information not available 10/31/2017 Sex: Unknown Functional Status Question Answer Note LastModified by Organization D etails LastModified Time Do you have difficulty walking or climbing stairs? No Information not available 10/06/2017 Do you have difficulty doing errands alone? No Information not available 10/06/2017 Do you have difficulty dressing or bathing? No Information not available 10/06/2017 What is your exercise level? None Information not available 10/31/2017 Mental Status Question Answer Note LastModified by Organization D etails LastModified Time Do you have difficulty concentrating, remembering or making decisions? No Information no t available 10/06/2017 Family History Relationship Description Onset Age of this Age Resolved Age Notes LastModified by Organization Details LastModified Time Mother Hypertensive disorder [email or web address] Not available 2017 14:24:38 Father Blood coagulation disorder wnelms Not available 2017 14:24:38 Sister Depressive disorder wnelms Not available 2017 14:24:38 Sister Diabetes mellitus wnelms Not available 2017 14:24:38 Sister Blood coagulation disorder wnelms Not available 2017 14:24:38 Sister Hypercholest erolemia wnelms Not available 2017 14:24:38 Sister Coronary artery bypass grafts x 3 restolas Not available 01/31 09:18:18 Sister Coronary arterioscler osis restolas Not available 2017 09:18:18 Medical History Condition Response HIV or AIDS N lupus N valvular heart disease N varicosities N asthma N cardiomyopathy N heart arrhythmia N ulcers N pacemaker N coronary artery disease N obesity N acid reflux/GERD N aortic aneurysm N bleeding disorder N diabetes mellitus N aneurysm N seizures N migraines N sleep apnea N kidney stones N developmental or behavioral disorder N breast problems N deep vein thrombosis N hiatal hernia N carotid disease N congestive heart failure N heart murmur N other cardiovascular issue N high cholesterol N cancer N other genitourinary issue N ADD or ADHD N depression Y high blood pressure Y peripheral arterial disease N emphysema N heart attack (NM) N blood clots N atrial fibrillation N leg or foot ulcers N psychiatric illness N thyroid disease N arrhythmia N heart problems N positive PPD N heart disease N hay fever N hyperlipidemia N hepatitis N stroke N Immunizations Vaccine Type Date Status Note Provider Nam e and Address Organization Details Recorded Time Influenza, split virus, trivalent, PF 10/31/2017 completed Not Available [facility] 2019 02:47:55 Influenza, MDCK, quadrivalent, PF 08/09/2018 completed Not Available [facility] 0 02:57:42 Past Encounters Encounter ID Performer Location Encounter Start Date Encounter Closed Date Diagnosis/Indication Diagnosis SNOMED-CT Code Diagnosis ICD10 Code Diagnosis Note [id number] Paige Tarango APRN [facility] _[place] [address] 10/06/2017 13:57:52 10/06/2017 15:56:44 Body mass index 25-29 - overweight 660445426 Z68.27 Uncontroll ed type 2 diabetes mellitus 388264946 E11.65 Neuropathy due to diabetes mellitus 489936533 E11.40 Hypertensive disorder 38 182719 I10 Bipolar disorder 3928628 4 F31.9 Informed pt that psych is a self referral. Anxiety 61913260 F41.9 Chronic neck pain 713973 3466 107 M54.2 Vitamin D deficiency 347 63712 E55.9 Thyroid di sorder screening 116516352 Z13.29 Screening for malignant neoplasm of prostate 562739796 Z12.5 [id number] ÁLVARO NORMAN MD [facility] [place] [address] 10/31/2017 11:14:58 10/31/2017 13:40:21 Administration of influenza vaccine 94666018 Z23 Diabetes mellitus 079999 09 E11.65 Provided patient education to assist in self-manag ement their disease state. Plan of care (POC) for the patient's specific disease developed and reviewed with patient. Instructio ns on how to monitor the patient's disease state provided. Provided patient with educationa l material related to their disease. Patient encouraged to monitor their disease state, to keep log of such and to bring to each visit for review. Bipolar disorder 3107873 4 F31.9 Hyperlipidemia 94566262 E78.5 Degenerati on of cervical intervertebral disc 07393938 M50.30 Liver func tion tests outside reference range 505718826 R94.5 Uncontroll ed type 2 diabetes mellitus 474531057 E11.65 Hypertensive disorder 38 968947 I10 Neuropathy due to diabetes mellitus 460393394 E11.40 Coronary arteriosclerosis 84813341 I25.10 Viral screening 30727200 4 Z11.59 [id number] YINKA lizCLSD_SVP E_CARDIO_ [facility] [id number] [place] [address] 12/02/2017 13:01:29 12/02/2017 13:37:55 Coronary arteriosclerosis 51980821 I25.10 Hypertensive disorder 38 572715 I10 Uncontroll ed type 2 diabetes mellitus 231738361 E11.65 [id number] MD Lusi GARCIA_[facility] E_PRIMARY _[address] [place] [address] 12/16/2017 10:43:56 12/16/2017 12:01:06 Adult health examination 464826792 Z00.01 Risk assessment done 712 167475 Z76.89 Neuropathy due to diabetes mellitus 673580021 E11.40 Chronic neck pain 919910 2051 107 M54.2 Bipolar disorder 2525545 4 F31.9 Hypertensive disorder 38 094461 I10 Uncontroll ed type 2 diabetes mellitus 965748633 E11.65 Anxiety 83254904 F41.9 Depression screening 171 773902 Z13.89 Screening for malignant neoplasm of colon 326109247 Z12.11 Z12.12 [id number] MD Luis GARCIA_SVP [address] [place] [address] 01/31/2018 09:12:01 01/31/2018 10:24:37 Bipolar disorder 56255863 F31.9 Uncontroll ed type 2 diabetes mellitus 621792851 E11.65 Hypertensive disorder 38 242706 I10 Chronic neck pain 238315 3354 107 M54.2 Gastroesop hageal reflux disease without esophagitis 754663773 K21.9 [id number] MD Lusi GARCIA_SVP [address] [place] [address] 05/26/2018 09:45:35 05/26/2018 11:06:48 Hypertensive disorder 28509310 I10 Neuropathy due to diabetes mellitus 059892338 E11.40 Coronary arteriosclerosis 41452985 I25.10 Degenerati on of cervical intervertebral disc 30594527 M50.30 Bipolar disorder 0932918 4 F31.9 FU w psych. Uncontroll ed type 2 diabetes mellitus 951241660 E11.65 Spasm of back muscles 20 6006766 M62.830 Hyperlipidemia 53906962 E78.5 [id number] Paige Paezre SOLORZANO zCLSD_SVP E_PRIMARY _[address],[facility] [place] [address] 08/09/2018 08:08:50 08/09/2018 08:54:25 Uncontrolled type 2 diabetes mellitus 995908824 E11.65 Hypertensive disorder 38 292291 I10 increase lisinopril to 5 mg/day Bipolar disorder 1961137 4 F31.9 f/u w/psych as scheduled Blurring o f visual image 485962056 H53.8 Vitamin D deficiency 347 28692 E55.9 Body mass index 25-29 - overweight 518585064 Z68.26 Administra tion of influenza vaccine 19254841 Z23 [id number] Paige Emelinare SOLORZANO zCLSD_SVP E_[address],[facility] [place] [address] 09/07/2018 14:25:57 09/07/2018 15:42:09 Spasm of back muscles 195309068 M62.830 discuss baclofen with pain mgmt. Degenerati on of cervical intervertebral disc 75473667 M50.30 Neuropathy due to diabetes mellitus 476825463 E11.40 discuss pain mgmt about switching from gabapentin to nortriptyl ine. Uncontroll ed type 2 diabetes mellitus 201858789 E11.65 pending scheduling w/endo Hypertensive disorder 38 472853 I10 Bipolar disorder 1953496 4 F31.9 f/u w/psych as scheduled. Discuss new med cogentin. Stressed importance of getting involved in community , helping others, having fun, going to gym - at least 2-3 x/wk and work up to 5 days/wk. Discussed several ideas. [id number] Joleen Estrada PA-C [facility] [address] [place] [address] 02/26/2019 13:22:16 02/26/2019 16:18:26 Chest pain 52162853 R07.9 - The patient is actively followed by a Cardiologi . He had a left heart catheteriz ation one year ago that showed 30% stenosis. He was started on secondary prevention but admits to not taking his statin.- EKG showed NSR at a rate of [address]-T waves.- iSTAT showed elevated glucose and elevated serum creatinine . Otherwise, no significan t abnormalit ies.- Fingerstic k hemoglobin A1c was elevated at 7.8 (his las A1c from July 2018 was 7.1).- CXR showed no acute cardiopulm onary process.- Discussed limitation s to today's evaluation . We cannot definitely rule out a cardiac cause for the patient's symptoms without obtaining cardiac enzymes. While the patient's EKG and chest XR are normal, my recommenda tion is that the patient have a complete cardiac work up in the Emergency Department . The patient understand s my recommenda tions. Otitis media 96968201 H6 6.93 Otitis externa 2771764 H 60.93 Dyslipidemia 934742573 E 78.5 - Patient has orders for lipid panel, CBC, CMP, and A1c but there are no results noted in the [facility] result database.- The last set of labs that I can find for him are from 2018. Will reorder the tests that the patient was supposed to complete.- The patient should contact Dr. Tarango / his PCP to schedule a follow up appointmen t where he can discuss the results of his lab work. Uncontrol ed type 2 diabetes mellitus 878922532 E11.65 - Fingerstic k hemoglobin A1c obtained in the [facility] today was elevated at 7.8. His las A1c from July 2018 was 7.1.- Patient has orders for lipid panel, CBC, CMP, and A1c but there are no results noted in the [facility] result database. - The last set of labs that I can find for him are from 2018. Will reorder the tests that the patient was supposed to complete.- The patient should contact Dr. Tarango / his PCP to schedule a follow up appointmen t where he can discuss the results of his lab work. Body mass index 25-29 - overweight 401322525 Z68.27 [id number] YINKA BENNETT MD zCLSD_SVP E_CARDIO_ SS_JAB [address] [facility] [place] [address] 05/16/2019 13:25:17 05/16/2019 15:47:26 Coronary arteriosclerosis 48311837 I25.10 Started on ASA 11/2018 Hypertensive disorder 38 377109 I10 Stable Uncontroll ed type 2 diabetes mellitus 007929752 E11.65 Dyslipidemia 091537524 E 78.5 results above will increase Atorvastat in 40mg daily [place] 563449011 R29.6 EKG within nl limitsWill check echo assess EF and valvular diseaseHea rt cath 2017 --30% stenosis [id number] YINKA lizCLSD_SVP E_CARDIO_ SS_JAB [address] [facility],[address] [place] [address] 08/31/2019 14:45:55 09/05/2019 03:47:52 [id number] YINKA lizCLSD_SVP E_CARDIO_ SS_JAB [address] [facility],[address] [place] [address] 03/14/2020 15:56:10 03/17/2020 14:07:10 Coronary arteriosclerosis 91220527 I25.10 Started on ASA 11/2018 Hypertensive disorder 38 065799 I10 Stable Uncontroll ed type 2 diabetes mellitus 014260727 E11.65 Dyslipidemia 758770327 E 78.5 results above will increase Atorvastat in 40mg daily Health Concerns Section Related Observation LastModified by Organization Detai ls LastModified Time None Recorded Concern Status LastModified by Organization Details LastModified Time None Recorded Advance Directives Directive None Recorded Payers Insurance Date Sequence Insurance Name Policy Number Policy Nj Covered Member ID Nj Member ID Guarantor Name 05/03/2024 1 [employer] - GOLD PLUS (MEDICARE REPLACEMENT HMO) Dylan Navarro [id number] Dylan Navarro 10/31/2017 1 [place] Dylan Navarro [id number] Dylan Navarro 02/14/2020 1 [employer] [place] HEALTH[place] - BLUE PREFERRED (MEDICARE REPLACEMENT HMO) Dylan Navarro [id number] Dylan Navarro Notes Date Note Type Note Provider Name and Address Organization Details Recorded Time 09/07/2018 text/html Diabetes*Reporte d bypatient.Review finger sticks:fasting: >170-200 Duration:chronic Control:normal range of home blood sugars (in the low 100s) Compliance:compliant with medications; compliant with follow-up visits;noncompliant with diet;noncompliant with home glucose monitoring Self Care:not seeing eye doctor yearly Associated Symptoms:no dizziness; no sweats; no headaches; no confusion;increased thirst;increased appetite;increased urination;blurred vision; states w/lithium Complications:no diabetic ketoacidosis;hyperten sionHyperlipidemia*Re ported bypatient.Type of hyperlipidemia:combin ed;hypercholesterolem ia Duration:chronic Compliance:compliant; compliant with dietHypertension F/U*Reported bypatient.Associated Symptoms:no dizziness; no lightheadedness; no chest pain; no shortness of breath; no palpitations; no edema; no calf pain with exertion; blurred vision, no headaches Lifestyle:regular exercise; limiting/avoiding salt Medications:taking medications as directed; no side effects from medication; checks blood pressure at home, range: (120/90); due for eye exam.Pain Management F/UReported bypatient.Location:ar m bilateral; upper back bilateral; leg bilateral; Chronic neck, back, arms, legs pains Quality:sharp Severity:moderate (5-7);interference with sleep;interference with work Duration:present for >12 months; chronic Timing:constant Context:overuse Aggravating Factors:movement/posi tioning; bending over Associated Symptoms:no skin changes; no fever; no swelling; no bowel changes; no bladder changesNotes:FU w pain management, dosen't want percocet and baclofen, only wants to sleep and takes pills Paige Tarango INTERNAL MEDICINE SPECIALIST [address], [place], [address], [facility] 09/07/2018 15:26:04 02/26/2019 text/html HISTORY OF PRESE NT ILLNESS: The patient is a very pleasant 53yo male who presents to the [facility] requesting evaluation of right sided chest pain. Symptoms have been occuring intermittently for the last 2-3 days. Patient describesA right sided, burning sensation in the chest that radiates to both arms. He has some intermittent episodes where he feels dizzy and has tingling in his fingertips as well. The patient's sister presents specifically asking to have the patient's glucose checked because she is not confident that he has been taking his medications.Patient has a history of a left heart catheterization last year showing 36% stenosis. The patient was started on a cholesterol medication for secondary prevention but he admits to not consistently taking the medicine. When asked when the last time he took it was, he implies that it has been over a year since he last took a statin.Symptoms come and go randomly. They are not associated with exertion or moving around. He denies any associated shortness of breath. No sweating episodes. Currently, his symptoms are not present. As also reports some mild pressure in the bilateral ears that started this week. His family member reports that the patient is swimming every day and they have seen him using Q tips a lot after he swims. Besides what is described above, the patient has no other complaints at this time. Patient denies any fevers, chills, nausea, vomiting, diarrhea, or abdominal pain. No cough, shortness of breath, lower extremity swelling, or palpitations. No dysuria, flank pain, or black/bloody stools. The patient denies any headache, dizziness, vision changes, slurred speech, confusion, or focal neurological deficits. REVIEW OF SYSTEMS: All other systems reviewed and negative except for what is described in the HPI PAST MEDICAL HISTORY: Reviewed/discussed. See problem list. PAST SURGICAL HISTORY: Reviewed/discussed. See list in the patient's EMR. CURRENT MEDICATIONS: Reviewed. Please see list in medication reconciliation. ALLERGIES: Reviewed. NKDA. SOCIAL HISTORY: The patient is . He lives locally with family. He is a former smoker with tobacco cessation several years ago. He denies any significant alcohol use. FAMILY MEDICAL HISTORY: Discussed/reviewed. See detailed family medical history in the patient's EMR. Joleen Estrada PA-C [address], [place], [address], [facility] 03/03/2019 11:07:46 05/16/2019 text/html Patient returns for followup after his inital consultation.Patient was in ED in March due to increased falls and weakness. He was admitted for dehydration and ruled out for stroke. His carotid duplex was normal. YINKA BENNETT MD [address], [place], [address], [facility] 05/16/2019 14:13:37 03/14/2020 text/html doing wellno car diac c/osdiscussed echo resultsverified personally home meds todaynot taking atorvastatin or crestor, or fibrate YINKA BENNETT MD [address], [place], [address], [facility] 03/14/2020 16:09:21
--- OUTSIDE RECORDS SUMMARY | 2025-02-03 14:38 | XMS_ITS | Data Portability ---
Author Organization [facility] - [facility] Address [address] [place] [address] Care Team Providers Care Focused Factory Manager Name Role Phone MOLLY DRIVER Primary Care Provider [phone] MOLLY DRIVER Referring Provider Assessment Encounter Date Assessment Date Assessment LastModified by Organization Details LastModified Time 03/12/2024 03/12/2024 IMAGING: Radiographs were taken of the patient's right lower extremity. The radiographs demonstrate a Maisonneuve fracture, where the patient fractured down the ankle and up in the fibula. The fractures have not shifted, and the ankle appears stable. ASSESSMENT: Dylan Navarro is a 58-year-old male diagnosed with a right Maisonneuve fracture. PLAN: - Follow up with Dr. Hutchinson for consultation - Splint the patient's right lower leg - Advise the patient to be non-weight bearing at this time - Future physical therapy is anticipated once the fracture has healed [email or web address] Not available 03/12/2024 17:42:48 04/05/2024 04/05/2024 Impression: 1) Maisonneuve's fracture of right proximal fibula Onset: Injury Date: 2-3 weeks ago Comorbidities: N/A [email or web address] Not available 04/05/2024 10:03:40 06/11/2024 06/11/2024 Impression: 1) Maisonneuve's fracture of right proximal fibula Onset: Injury Date: 2-3 weeks ago Comorbidities: N/A [email or web address] Not available 06/11/2024 07:51:31 Plan of Treatment Reminders Order Date Submit Date Provider Last Modified By Organization Details Last Modified Time Details Appointments None recorded. Lab None recorded. Referral orthopedi c surgeon referral 2023 024 [email or web address] Deyvi Vidal MD, [address], [place], [address], 4 14:22:52 Procedures None recorded. Surgeries None recorded. Imaging XR, ankle, 3 or more view 2023 024 [email or web address] [facility], [address], [address], [place], [address], Ph [phone] 4 15:14:59 XR, tibia + fibula, 2 view 2023 024 [email or web address] [facility], [address], [place], [address], Ph [phone] 4 15:14:59 XR, ankle, 3 or more view 2023 024 [email or web address] [facility], [address], [place], [address], Ph [phone] 4 10:04:21 XR, tibia + fibula, 2 view 2023 024 [email or web address] [facility], [address], [address], [place], [address], Ph [phone] 4 10:04:04 XR, tibia + fibula, 2 view 2023 024 [email or web address] [facility], [address] [address], [place], [address], 4 16:26:57 Medication Orders None recorded. Patient TargetsNo targets recorded. Patient InstructionsNo instructions recorded. Reason for Referral Orthopedic Surgeon Referral for Fracture of fibula Referring Physician: Aaron Guerra, Orthopedics, Encounter Date: 03/12/2024 Results Created Date Observation Date Name Description Value Unit Range Abnormal Flag Note LastModifiedBy Organization Detail LastModifiedTime 03/12/20 24 XR, tibia + fibul a, 2 view No observ ation [facility] [address], [place], [address], 03/12/2024 14:23:30 04/05/20 24 XR, tibia + fibul a, 2 view No observ ation record ed. jose antonio Krishnan [address], [place], [address], Ph [phone] 04/05/2024 10:04:04 04/05/20 24 XR, ankle , 3 or more view No observ ation record ed. jose antonio [address], [place], [address], Ph [phone] 04/05/2024 10:04:20 06/11/20 24 XR, tibia + fibul a, 2 view No observ ation record ed. savannah [address], [place], [address], Ph [phone] 06/11/2024 15:14:53 06/11/20 24 XR, ankle , 3 or more view No observ ation record ed. savannah [address], [place], [address], Ph [phone] 06/11/2024 15:14:42 Result Notes None recorded. Procedures Surgical History None recorded. Imaging Results Imaging Date Name Status LastModified by [employer] Details LastModified Time 03/12/2024 XR, tibia + fibula, 2 view completed eric [facility] [address], [place], [address], 03/12/2024 14:23:30 04/05/2024 XR, tibia + fibula, 2 view completed jose antonio Krishnan [address], [place], [address], Ph [phone] 04/05/2024 10:04:04 04/05/2024 XR, ankle, 3 or more view completed [email or web address] [facility] [address], [place], [address], Ph [phone] 04/05/2024 10:04:20 06/11/2024 XR, tibia + fibula, 2 view completed [email or web address] [facility] [address], [place], [address], Ph [phone] 06/11/2024 15:14:53 06/11/2024 XR, ankle, 3 or more view completed [email or web address] [facility] [address], [place], [address], Ph [phone] 06/11/2024 15:14:42 Procedure Notes None recorded. Medical Equipment None Reported. Allergies No known drug allergies Medications Name Sig Start Date Stop Date Status Note LastModified by Organization Details LastModified Time celecoxib 200 mg capsule TAKE 1 CAPSULE BY MOUTH DAILY active Not Available Not Available Not Available fluconazole 100 mg tablet TAKE 1 TABLET BY MOUTH DAILY FOR 3 DAYS active Not Available Not Available N ot Available gabapentin 600 mg tablet TAKE 1 TABLET BY MOUTH THREE TIMES DAILY active Not Available Not Available Not Available tizanidine 4 mg tablet TAKE 1 TABLET BY MOUTH THREE TIMES DAILY active Not Available Not Available Not Available metformin 850 mg tablet TAKE 1 TABLET BY MOUTH TWICE DAILY WITH A MEAL active Not Available Not Available No t Available omeprazole 40 mg capsule,delgado yed release TAKE 1 CAPSULE BY MOUTH DAILY 30 MINUTES BEFORE BREAKFAST active Not Available Not Available No t Available tramadol 50 mg tablet TAKE 1 TABLET BY MOUTH THREE TIMES DAILY FOR NON ACUTE PAIN active Not Available Not Available N ot Available quetiapine 100 mg tablet TAKE 1 TABLET BY MOUTH AT BEDTIME active Not Available Not Available No t Available lamotrigine 25 mg tablet TAKE 2 TABLETS BY MOUTH TWICE DAILY FOR 15 DAYS FOR MOOD active Not Available Not Available No t Available trazodone 100 mg tablet active Not Available Not Available Not Available divalproex ER 500 mg tablet,exten ded release 24 hr TAKE 1 TABLET BY MOUTH TWICE DAILY FOR 15 DAYS FOR SEIZURES active Not Available Not Available No t Available lidocaine 5 % topical patch APPLY 1 PATCH TOPICALLY TO THE SKIN DAILY. MAY WEAR UP TO 12 HOURS active Not Available Not Available No t Available bupropion HCl 75 mg tablet TAKE 1/2 TABLET BY MOUTH EVERY MORNING FOR 7 DAYS. THEN INCREASE TO 1 TABLET BY MOUTH EVERY MORNING active Not Available Not Available No t Available metoprolol succinate ER 25 mg tablet,exten ded release 24 hr TAKE 1 TABLET BY MOUTH DAILY active Not Available Not Available Not Available fludrocortis one 0.1 mg tablet TAKE 2 TABLETS BY MOUTH ONCE A DAY IN THE MORNING active Not Available Not Available Not Available lisinopril 2.5 mg tablet TAKE 1 TABLET BY MOUTH DAILY active Not Available Not Available Not Available aripiprazole 5 mg tablet TAKE 1 TABLET BY MOUTH TWICE DAILY FOR 15 DAYS FOR PSYCHOSIS active Not Available Not Available No t Available rosuvastatin 40 mg tablet TAKE 1 TABLET BY MOUTH DAILY active Not Available Not Available Not Available duloxetine 30 mg capsule,delgado yed release TAKE 1 CAPSULE BY MOUTH DAILY active Not Available Not Available Not Available duloxetine 60 mg capsule,delgdao yed release TAKE 1 CAPSULE BY MOUTH DAILY active Not Available Not Available Not Available diclofenac potassium 25 mg capsule TAKE 1 CAPSULE BY MOUTH FOUR TIMES DAILY active Not Available Not Available Not Available Trulicity 1.5 mg/0.5 mL subcutaneous pen injector ADMINISTER 1.5 MG UNDER THE SKIN 1 TIME A WEEK active Not Available Not Available No t Available quetiapine 150 mg tablet TAKE 1 TABLET BY MOUTH DAILY AT BEDTIME active Not Available Not Available N ot Available Vitals Date Recorded Body height Body mass index (BMI) Body weight Provider Name and Address Organization Details Last Updated DateTime 03/12/2024 172.72 cm 24.5 kg/m2 99635.37 g Rodney Bourne [facility] 03/12/2024 14:25:49 Date Recorded Body height Body mass index (BMI) Body weight Provider Name and Address Organization Details Last Updated DateTime 04/05/2024 172.72 cm 24.5 kg/m2 28038.37 g Lawrence Jackson [facility] 04/05/2024 09:39:36 Social History Question Answer Notes LastModified by Organizat ion Details LastModified Time Tobacco Smoking Status Former Smoker Rodney amezcua [facility] 03/12/2024 14:26:10 What Was The Date Of Your Most Recent Tobacco Screening? 04/05/2024 [email or web address] Information not available 04/05/2024 Sex: Unknown Functional Status None recorded. Mental Status None recorded. Family History Nothing Reported. Medical History No medical history recorded. Past Encounters Encounter ID Performer Location Encounter Start Date Encounter Closed Date Diagnosis/Indication Diagnosis SNOMED-CT Code Diagnosis ICD10 Code Diagnosis Note [id number] Aaron Guerra MD [facility] [address] [place] [address] 03/12/2024 14:01:14 03/12/2024 15:40:30 Pain in right lower limb 079581329 M79.604 Fracture of fibula 37952 007 S82.861A Closed fra cture of medial malleolus of right distal tibia [id number] 1743558 S82.54XA [id number] Deyvi Vidal MD [facility] [address] [place] [address] N,[address] [place] [address] 04/05/2024 08:33:45 04/05/2024 14:02:26 Pain in right lower limb 869823611 M79.604 Pain of ri ght ankle joint 2583366360 6315934 M25.571 Closed fra cture of shaft of fibula 26179273 S82.431A Clinical and radiograph ic findings discussed at length with the patient. All questions were answered. I have advised the patient to {{initiate * continue }} use of ice and NSAIDS (if tolerated) to reduce pain and swelling as needed and continue with activity modificati on. The patient has been placed in a CAM boot that is medically necessary for immobiliza tion and support. The patient was advised to wear the CAM boot continuous ly, including sleeping, only removing for one hour daily for hygiene purposes. I advised the patient that they may begin gentle dorsal/viki ntar flexion exercises occasional ly while out of the boot. Patient advised to remain {{non weightbear ing partia l weightbear ing full weightbear ing*}}. The patient will follow up in 2 weeks for reevaluati on. [id number] Deyvi Vidal MD [facility] [address] [place] [address] 06/11/2024 14:01:40 06/11/2024 16:39:20 Pain in right lower limb 915989656 M79.604 X-rays demonstrat e good overall bone alignment and progressiv e healing. Soft tissue are normal. There is otherwise no evidence of any new fracture, dislocatio n or osseous lesion. Pain of ri ght ankle joint [id number] 6069673 M25.571 X-rays demonstrat e good overall bone alignment and progressiv e healing. Soft tissue are normal. There is otherwise no evidence of any new fracture, dislocatio n or osseous lesion. Closed fra cture of shaft of fibula 99159528 S82.431A Clinical and radiograph ic findings discussed at length with the patient. All questions were answered. I have advised the patient to {{initiate * continue }} use of ice and NSAIDS (if tolerated) to reduce pain and swelling as needed and continue with activity modificati on. Patient ordered {{velocity ankle brace* air stirrup ankle brace lace up ankle brace}} at today's appointmen t that is medically necessary for ambulation and support. Patient to transition from tall CAM boot into ankle brace as tolerated. The patient will follow up in 4-6 weeks for reevaluati on. Health Concerns Section Related Observation LastModified by Organization Detai ls LastModified Time None Recorded Concern Status LastModified by Organization Details LastModified Time None Recorded Advance Directives Directive None Recorded Payers Insurance Date Sequence Insurance Name Policy Number Policy Nj Covered Member ID Nj Member ID Guarantor Name 08/11/2024 1 [employer] - GOLD [employer]US (MEDICARE REPLACEMENT HMO) Dylan Navarro [id number] Dylan Navarro Notes Date Note Type Note Provider Name and Address Organization Details Recorded Time 03/12/2024 text/html New patient reports to clinic for right knee pain. Patient states his current pain is 8/10 and at its worst 10/10. Patient states he fell about 3-4 weeks ago, standing behind his couch and turned and fell, then was not able to work. Patient states he went to [facility] urgent care the day of his fall in [facility] and xrays and said he had a sprain, they gave him pain medications then sent him home. He states they went back 2-3 days later due to how bad the pain was and they did a sonogram which then noticed a fracture, then he came here.Dylan Navarro is a 58-year-old male who presents to the clinic for a knee issue. The patient reports that he was standing near the kitchen counter when he put his foot down, and it twisted, causing him to fall. He has a history of multiple surgeries, including 14 surgeries on his right arm and 5 surgeries on his left arm. 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 The patient's doctor suspects that he might have osteoporosis due to his frequent bone fractures at a young age and a family history of the condition. The patient [place] on [address], [place] [address] [facility], near [facility]. Aaron Guerra MD [address], [place], [address], [facility] [place]12[place]24 17:46:08 04/05/2024 text/html Patient presents to the clinic for {{left right* bila teral}} {{foot ankle* feet ankles}} {{follow up post op new problem* new patient}} appointment. Patient reports current pain is {{mild moderate se divina*}}. Patient states that 3 weeks ago he was in his kitchen, twisted around to talk to someone, and injured his right calf and ankle. Patient presents PWB with a short splint and walker. Deyvi Vidal MD [address], [place], [address], [facility] [place] 04/05/2024 10:13:02 06/11/2024 text/html Patient presents to the clinic for {{left right* bila teral}} {{foot ankle* feet ankles}} {{follow up* post op new problem new patient}} appointment. Patient reports current pain is {{mild* moderate s evere}}. Patient denies any new falls or traumas since last appointment. Patient denies any calf tenderness. ZOILA ARAMBULA [address], [place], [address], [facility] [place] 06/11/2024 15:15:35
[2025-02-03 14:48] LABS: MANUAL DIFF FLAG NO
[2025-02-03 14:50] LABS: Basophils Absolute Auto 0.1 X10*3/uL (0.0-0.2); Basophils Percent Auto 0.8 % (0-2); Eosinophils Absolute Auto 0.5 X10*3/uL (0.0-0.4); Eosinophils Percent Auto 7.7 % (0-4); Hematocrit 39.7 % (42.0-52.0); Hemoglobin 13.5 g/dl (14.0-18.0); Imm Gran Abs Auto 0.01 X10*3/uL (0.00-0.03); Imm Gran Pct Auto 0.2 % (0.0-0.4); Lymphocytes Absolute Auto 1.7 X10*3/uL (1.2-4.9); Mean Corpuscular Hemoglobin 30.3 pg (27.0-33.0); Mean Platelet Volume 10.1 fL (9.4-12.4); Monocytes Absolute Auto 0.6 X10*3/uL (0.1-1.2); Monocytes Percent Auto 8.7 % (2-11); Neutrophils Absolute Auto 3.6 x10*3/uL (2.0-8.3); Neutrophils Percent Auto 56.6 % (45-73); Platelet Count 183 X10*3/uL (160-400); Red Blood Count 4.46 X10*6/uL (4.60-5.80); Red Cell Distribution Width 13.2 % (11.0-16.0); White Blood Count 6.3 X10*3/uL (4.8-10.8)
[2025-02-03 15:09] LABS: Prothrombin Time 11.7 SEC (10.9-12.4)
[2025-02-03 15:14] LABS: Troponin-I High Sensitivity < 2.7 ng/L (<3.5-35.0)
[2025-02-03 15:15] LABS: Alanine Aminotransferase 58 U/L (0-40); Anion Gap 19 (12-20); Aspartate Amino Transferase 37 U/L (5-37); Bilirubin Total 0.6 mg/dL (0.0-1.0); Blood Urea Nitrogen 18 mg/dL (9-16); Calcium 10.2 mg/dL (8.4-10.2); Carbon Dioxide 26 mmol/L (22-29); Chloride 99 mmol/L (96-108); Creatinine Clr Calc Pharmacy 41.2; Estimated Glomerular Filt Rate 45; Glucose Random 476 mg/dL (60-115); Magnesium 2.3 mg/dL (1.6-2.6); Potassium 5.5 mmol/L (3.3-5.1); Sodium 138 mmol/L (135-145); Total Protein 7.6 g/dL (6.5-8.0)
[2025-02-03 15:20] LABS: Alkaline Phosphatase 80 U/L (39-117)
[2025-02-03 15:24] LABS: D Dimer High Sensitivity 1006 NG/ML
[2025-02-03] MEDS: 0.9 % Sodium Chloride 1,000 ML 999 ML IV ×2 (15:37→17:26)
[2025-02-03] MEDS: Insulin Regular, Human 100 UNIT/ML 10 ML VIAL IVPUSH (15:47)
[2025-02-03] MEDS: Sodium Zirconium Cyclosilicate 10 GM POWD.PACK PO (15:47)
[2025-02-03 15:52] LABS: Appearance Urine Clear; Color Urine Yellow; Glucose Urine UA >=1000 mg/dL (Negative); Leukocyte Esterase Urine Negative (Negative); Nitrite Urine Negative (Negative); PH 5.5 (5.0-9.0); Specific Gravity - Urine 1.025 (1.005-1.025); UMIC TRIGGER UACC YES; Urine Blood Negative (Negative); Urine Ketones Negative (Negative); Urine Protein Negative (Neg-Trace)
[2025-02-03 15:57] LABS: Bacteria Urine None Seen (None Seen); Hyaline Casts Urine 0-2 /LPF (0-2); RBC Urine 0-2 /HPF (0-2); Squamous Epithelial Cell Urine 0-2 /HPF (0-2); WBC Urine 0-5 /HPF (0-5)
[2025-02-03] MEDS: iohexoL 350 MG/ML 100 ML INFUS..BTL IV (16:23)
[2025-02-03 17:44] LABS: Influenza A PCR NEGATIVE (Negative); Influenza B PCR NEGATIVE (Negative); Resp Syncy Virus RNA Qual PCR NEGATIVE (Negative); SARS COV2 PCR INHOUSE NEGATIVE (Negative)
[2025-02-03] MEDS: oxyCODONE HCl Immed Release 5 MG TABLET PO (17:48)
--- NOTE | 2025-02-03 19:00 | P.HPHOSP_ITS ---
History of Present Illness Date of Service: 02/03/25 Attending physician on admission: Quintin [place] Chief Complaint: fainted, RLE pain Patient is a 59-year-old male with past medical history osteoarthritis, GERD, insulin-dependent diabetes type 2, right elbow replacement, syncope, orthostasis, severe depression, bipolar disorder, schizoaffective disorder, urinary incontinence, penile pump for erectile dysfunction, degenerative spine disease and cervical spine surgery,l right hand trauma, essential tremor, history of alcohol abuse, history of cocaine abuse, history of tobacco abuse and patient is a Jehovah Witness and is against blood transfusions presents to the emergency department with complaint of a syncopal episode unwitnessed. Patient states the incident occurred while he was in the kitchen walking to his sister's bedroom and patient was found down in front of his sister's bedroom door. Patient feels he was out for approximately a few sec. Patient denies a hit to the head. Patient did report pain in the right lower extremity and patient was not able to bear weight. Patient was not diaphoretic but is not sure if his blood sugar was low at the time. Patient states his appetite has been poor but denies any weight loss. This policy writer sales has not been able to contact pt's sister to review this occurrence or review pt's medication status and hx. Head CT negative for any acute findings. Pt found to have Mildly displaced oblique fracture of the lateral malleolus of the distal fibula with overlying soft tissue swelling. Pt splinted in ED. Pain is well controlled. Per ED note, pt states he has fractured the right ankle in the past. Incidentally D-dimer was also elevated and CTA completed which was negative for PE. Noted was cholelithiasis and early lung fibrosis. Pt currently on RA. Potassium also elevated, 5.5 to 5.8 and pt received lokelma in the ED. Renal fx slightly decreaed but rebounded with fluids. UA negative for ketones, protein. Patient reports ongoing issues with dizziness, orthostasis and syncopal episodes over the last year. Patient was started on medication to help with this (fludrocortisone)but patient continues to have episodes. Patient moved from [place] with his sister back to [place] 2 months ago as he was about to become homeless. The relative they were living in [place] with sold their home and they had no where to go. Patient has not had any psychiatric or primary care since moving to [place]. Patient has been feeling more depressed and has not been managing his diabetes using insulin or checking his blood sugars. In addition, patient has had no psychiatric medications as he does not currently have a provider in this area. Pt has his first PCP appt in August 2025. Pt states he has been feeling suicidal lately but has no plan. Pt denies having SI, HI at this time. Pt reports he feels safe and is very close to his sister and safe at home. Pt being admitted for syncope, R ankle injury, hyperkalemia, hyperglycemia and noted psychiatric hx off medications due to lack of access to care feeling depressed. [facility] Medical History (Updated 02/03/25 @ 19:10 by MICHAEL Garcia) Cocaine abuse History of tobacco abuse History of alcohol abuse Penile lump Urinary incontinence GERD (gastroesophageal reflux disease) Osteoarthritis Injury of right hand Syncope Tremor of both hands Chronic low back pain Type 2 diabetes mellitus Depression Bipolar 1 disorder Schizophrenia Cognitive capacity: alert and orientated x3, poor recall Functional capacity: uses cane/walker Family History Mother HTN (hypertension) Diabetes Alzheimer disease Father Diabetes HTN (hypertension) Schizophrenia PVD (peripheral vascular disease) CAD (coronary artery disease) Bipolar 1 disorder Surgical History H/O cervical spine surgery Elbow joint replacement status Social History Household Members: Other Household Members Other:: sister Housing: Apartment Do you presently have visiting nurse or other home services: Yes Patient Tobacco Use Status: Former Tobacco user Smoked in Last 30 Days: No Use of substances other than those prescribed or required for medical reasons: No Advance Directives: Yes Advance Directives on File: Yes Advance Directives Date on File: 09/04/23 Do you have a plan to hurt others: No Plan service: No Current occupational status: unemployed Ebola Risk: Travel/Contact With Anyone From Affected Area/s: No Has Patient Experienced Ebola Symptoms: No Meds Allergies Allergy/AdvReac Type Severity Reaction Status Date / Time No Known Allergies Allergy Mild NONE Verified 02/03/25 13:48 Active Medications: Current Medications Acetaminophen (Acetaminophen 325 Mg Tablet) 650 mg PO Q6H PRN PRN Reason: Pain, Mild 1-3,fever,headache Acetaminophen (Acetaminophen 325 Mg Tablet) 650 mg PO Q6H PRN PRN Reason: Pain, Mild 1-3,fever,headache Calcium Carbonate (Calcium Carbonate 750 Mg Tab.Chew) 750 mg PO Q4H PRN PRN Reason: Heartburn Calcium Carbonate (Calcium Carbonate 750 Mg Tab.Chew) 750 mg PO Q4H PRN PRN Reason: Heartburn Dextrose (Dextrose 50 % 25 Gm/50 Ml Syringe) 25 gm IVPUSH Q15M PRN; Protocol PRN Reason: per Hypoglycemia Standing Ord. Enoxaparin Sodium (Enoxaparin Sodium 40 Mg/0.4 Ml Syringe) 40 mg SUBCUT Q24H [facility] Glucose (Glucose Gel 15 Gm Gel..Gram.) 15 gm PO Q15M PRN; Protocol PRN Reason: per Hypoglycemia Standing Ord. Sodium Chloride (Ns) 1,000 mls @ 100 mls/hr IVCONT .Q10H [facility] Insulin Human Lispro (Insulin Lispro 100 Unit/Ml 3 Ml Vial) 0 unit SUBCUT QIDACHS [facility]; Protocol Magnesium Hydroxide (Milk Of Magnesia 30 Ml Oral.Susp) 30 ml PO DAILY PRN PRN Reason: Constipation Magnesium Hydroxide (Milk Of Magnesia 30 Ml Oral.Susp) 30 ml PO DAILY PRN PRN Reason: Constipation Melatonin (Melatonin 3 Mg Tablet) 6 mg PO BEDTIME PRN PRN Reason: Insomnia Melatonin (Melatonin 3 Mg Tablet) 6 mg PO BEDTIME PRN PRN Reason: Insomnia Ondansetron HCl (Ondansetron Hcl 4 Mg/2 Ml Vial) 4 mg IVPUSH Q8H PRN PRN Reason: Nausea and Vomiting Senna (Sennosides 8.6 Mg Tablet) 17.2 mg PO BEDTIME [facility] Sodium Chloride (0.9 % Sodium Chloride Flush 3 Ml Syringe) 3 ml IVFLUSH QSHIFT [facility] Sodium Chloride (0.9 % Sodium Chloride Flush 3 Ml Syringe) 3 ml IVFLUSH QSHIFT [facility] Home Medications ?Medication ?Instructions ?Recorded ?Confirmed ?Last Taken ?Type diclofenac sodium 1 % topical gel 2 g topical BID PRN Pain 06/23/22 09/05/23 Unknown History duloxetine 30 mg capsule,delayed 30 mg PO DAILY 06/23/22 09/05/23 09/04/23 History release gabapentin 300 mg capsule 1 cap PO TID 06/23/22 09/05/23 09/04/23 History insulin glargine 100 unit/mL (3 25 unit subcut QAM 06/23/22 09/05/23 09/04/23 History mL) subcutaneous pen (Lantus Solostar U-100 Insulin) insulin lispro 100 unit/mL 0 sliding scale dose subcut TIDAC 06/23/22 09/04/23 06/23/22 History subcutaneous pen omeprazole 40 mg capsule,delayed 1 cap PO DAILY 06/23/22 09/05/23 09/04/23 History release rosuvastatin 40 mg tablet 1 tab PO BEDTIME 06/23/22 09/05/23 09/04/23 History trazodone 100 mg tablet 1 tab PO BEDTIME 06/23/22 09/05/23 09/04/23 History aspirin 81 mg tablet,delayed 81 mg PO DAILY 09/04/23 09/05/23 09/04/23 History release dulaglutide 1.5 mg/0.5 mL 1.5 mg subcut QWEEK 09/04/23 09/05/23 Unknown History subcutaneous pen injector (Trulicity) metformin 500 mg tablet 500 mg PO BID 09/04/23 09/05/23 09/04/23 History acetaminophen 650 mg 650 mg PO TID 09/05/23 09/05/23 Unknown History tablet,extended release duloxetine 60 mg capsule,delayed 60 mg PO DAILY 09/05/23 09/05/23 09/04/23 History release sprinkle Physical Exam 2 Vital Signs and Narrative: Vital Signs: Last Vital Signs Temp 97.9 F 02/03/25 14:24 Pulse 81 02/03/25 16:14 Resp 15 02/03/25 16:00 BP 82/68 L 02/03/25 16:14 Pulse Ox 94 02/03/25 16:00 O2 Del Method Room Air 02/03/25 16:00 BMI result Body Mass Index 19.8 Alert and orientated X3, poor recall with names, diagnoses, dates Neuro: CN II-X11 intact, no deficits, visual acuity intact EYES: PERRLA, EOM intact, wears glasses ENT: hearing intact, no issues with swallowing, uvula midline, lips moist, nares patent no epistaxis, possible incomplete septum due to hx of cocaine use Cardiac: S1 S2 RRR, no murmur, no JVD, no edema in Lower ext, no carotid bruit B Pulmonary: lungs clear to ausculation B Abdominal: BS active in all 4 quadrants, no guarding, tenderness, rebounding MSK: strength 4/5 upper and L lower extremities , unable to assess strength in RLE due to cast , skin warm, sensation intact : no CVA tenderness no bladder distension Extremities: no edema in lower extremities, PT and DP pulses palpable +2 Psych: mood depressed, judgement and insight fair Skin: no open wounds noted or reported by pt Results Labs 02/03/25 14:37 02/03/25 18:53 Labs: Laboratory Results - last 24 hr 02/03/25 02/03/25 14:37 15:40 MCV 89.0 MCH 30.3 MCHC 34.0 RDW 13.2 Plt Count 183 D MPV 10.1 Immature Gran % (Auto) 0.2 Neut % (Auto) 56.6 Lymph % (Auto) 26.0 [place] % (Auto) 8.7 Eos % (Auto) 7.7 H Baso % (Auto) 0.8 Lymph # (Auto) 1.7 [place] # (Auto) 0.6 Eos # (Auto) 0.5 H Baso # (Auto) 0.1 Abs Immat Gran (auto) 0.01 Absolute Neuts (auto) 3.6 Absolute Nucleated RBC 0.000 Nucleated RBC % (auto) 0.0 PT 11.7 INR 1.0 D-Dimer High Sensitivty 1006 Anion Gap 19 Estim Creat Clear Calc 41.2 Estimated GFR 45 Random Glucose 476 H* Calcium 10.2 D Magnesium 2.3 Total Bilirubin 0.6 AST 37 ALT 58 H Alkaline Phosphatase 80 Total Protein 7.6 Albumin 4.0 Urine Color Yellow Urine Appearance Clear Urine pH 5.5 Ur Specific [place] 1.025 Urine Protein Negative Urine Glucose (UA) >=1000 H Urine Ketones Negative Urine Blood Negative Urine Nitrite Negative Ur Leukocyte Esterase Negative Urine RBC 0-2 Urine WBC 0-5 Ur Squamous Epith Cells 0-2 Urine Bacteria None Seen Hyaline Casts 0-2 Influenza Type A (PCR) NEGATIVE Influenza Type B (PCR) NEGATIVE RSV RNA Qual (PCR) NEGATIVE SARS-CoV-2 RNA (RT-PCR) NEGATIVE ECG Attestation: I personally reviewed and interpreted this ECG as follows: (NSR normal Qtc, no ischemic changes ) Prior ECG tracings: available for review Imaging Radiologist's Impressions: CTA IMPRESSION: 1. No evidence of pulmonary embolism. 2. No acute intrathoracic findings. No evidence of pneumonia. 3. Mild subpleural fibrotic interstitial anomaly along the mid to lower lungs may represent an early lung fibrosis. Would recommend clinical evaluation for potential causes, including collagen vascular disease and inhalation exposures. Continual annual evaluation is likely appropriate. HEAD CT FINDINGS: The visualized paranasal sinuses are clear. The mastoid air cells are clear. No calvarial fracture. Atherosclerotic intracranial vasculature. No evidence for mass or mass effect. No intracranial hemorrhage or abnormal extra-axial fluid collection. No CT evidence of acute infarct. The ventricles are proportional with the degree of mild global cerebral volume loss without evidence of hydrocephalus. Basilar cisterns are patent. There are periventricular areas of low attenuation compatible with mild white matter small vessel disease. Posterior fossa appears unremarkable. IMPRESSION: 1. No acute intracranial findings. Assessment and Plan (1) Syncope: Qualifiers: Syncope type: unspecified Qualified Code(s): R55 - Syncope and collapse Status: Acute Plan Patient is a 59-year-old male with past medical history osteoarthritis, GERD, insulin-dependent diabetes type 2, right elbow replacement, syncope, orthostasis, severe depression, bipolar disorder, schizoaffective disorder, urinary incontinence, penile pump for erectile dysfunction, degenerative spine disease and cervical spine surgery, right hand trauma, essential tremor, history of alcohol abuse, history of cocaine abuse, history of tobacco abuse and patient is a Jehovah Witness and is against blood transfusions admitted for syncope/ orthostasis, R ankle injury currently splinted, hyperkalemia, hyperglycemia, depression and no current access to psychiatric care due to recent move. Syncope/Orthostasis -Cardiology consulted -ECHO and carotid dopplers ordered -TEDS ordered -IV 0.9 NS 100 per hour -Orthostatics QShift X48 hours -hold fludrocortisol -Telemetry -Troponin, BNP and ECG WNL Hyperkalemia -Lokelma in ED, 10 gms -repeat BMP, treat accordingly -telemetry -IVF R malleolus/distal fibula fracture -Orthopedics consulted -pain well controlled, start with nonnarcotics, advance as needed Hyperglycemia/ IDDM II -Pt has been non compliant with insulin and checking BG levels over last 2-3 months due to move from [place] and depression. BG 476 closed AG, no ketones on arrival, repeat with fluids and Regular Insulin 5 units, BG 196. -SSI -Lantus 10 HS, pt had been on Lantus in [place] -AIC AM -Diabetic diet, nutritional consult for education -unclear if pt is still using Trulicity weekly, if so this could be contributing to poor appetite (no wt loss or constipation reported) -PCP/ endocrine as an outpatient Depression/schizoaffective disorder/ Bipolar -Psychiatric consult ordered -Await med rec, review with sister if pt has had access to usual medications, pt states no psych meds in 2-3 months -Section 12 not indicated pt is not currently having SI, HI with a plan, has had feelings of suicide with no plan in the recent past Essential tremor -Chronic with no report of hx of tardive dyskinesia, EPS or parkinson's or parkinsonism like symptoms GERD -Omeperazole ordered HX of polysubstance abuse -remission with no relapses in 7 years -once transitioned to Jehovah Witness, pt has abstained from alcohol and drug use Jehova Witness - no blood transfusions DVT prophylaxis: lovenox PPI prophylaxis: omeperazole Full Code: unclear if pt has a guardian, unable to reach sister to confirm this. Pt did state verbally that he would want to be a DNR/DNI. This should be reviewed with family and HCP (not a relative) prior to changing. MED REC pending Quality Stroke Does the patient have a stroke diagnosis?: No Reason for No Anti-thrombotic by Day Two: N/A - Med Ordered VTE Prior VTE?: No VTE Risk Level:: Medical - moderate - high VTE Device Contraindication: N/A - Device Ordered VTE Drug Contraindication: N/A - Med Ordered
[2025-02-03] MEDS: 0.9 % Sodium Chloride 1,000 ML 100 ML IVCONT (19:13)
[2025-02-03 19:16] LABS: Anion Gap 15 (12-20); Blood Urea Nitrogen 16 mg/dL (9-16); Calcium 9.1 mg/dL (8.4-10.2); Carbon Dioxide 27 mmol/L (22-29); Chloride 106 mmol/L (96-108); Creatinine Clr Calc Pharmacy 55.5; Estimated Glomerular Filt Rate > 60; Glucose Random 196 mg/dL (60-115); Potassium 5.8 mmol/L (3.3-5.1); Sodium 142 mmol/L (135-145)
[2025-02-03] MEDS: Enoxaparin Sodium 40 MG/0.4 ML SYRINGE SUBCUT (19:16)
[2025-02-03 19:20] LABS: B Type Natriuretic Peptide 26 pg/mL (<100)
[2025-02-03 19:39] LABS: Free T4 (Free Thyroxine) 0.91 ng/dL (0.71-1.85); Thyroid Stimulating Hormone 3.72 uIU/mL (0.32-4.0)
[2025-02-03 21:57] LABS: Glucose, Whole Blood 196 mg/dL (60-115)
[2025-02-03] MEDS: Insulin Glargine,Hum.rec.anlog 100 UNIT/ML 10 ML VIAL 10 UNIT SUBCUT (23:02)
[2025-02-03] MEDS: Insulin Lispro 100 UNIT/ML 3 ML VIAL SUBCUT (23:03)
[2025-02-03] MEDS: Sennosides 8.6 MG TABLET 17.2 MG PO (23:07)
[2025-02-03] MEDS: HYDROmorphone HCl 1 MG/ML SYRINGE IVPUSH (23:32)
[2025-02-04] VITALS (11 sets, daily range): BP systolic 102–169; BP diastolic 62–96; PULSE 72–118; RESP 17–18; TEMP 36.1–37.3; O2SAT 95–99; BMI 19.5
[2025-02-04] MEDS: 0.9 % Sodium Chloride 1,000 ML 100 ML IVCONT ×3 (04:37→22:58)
[2025-02-04] MEDS: Omeprazole 20 MG CAPSULE.DR PO (04:40)
[2025-02-04 06:13] LABS: MANUAL DIFF FLAG NO
[2025-02-04 06:19] LABS: Basophils Absolute Auto 0.1 X10*3/uL (0.0-0.2); Basophils Percent Auto 0.8 % (0-2); Eosinophils Absolute Auto 0.7 X10*3/uL (0.0-0.4); Eosinophils Percent Auto 10.9 % (0-4); Hematocrit 37.5 % (42.0-52.0); Imm Gran Abs Auto 0.01 X10*3/uL (0.00-0.03); Imm Gran Pct Auto 0.2 % (0.0-0.4); Lymphocytes Absolute Auto 1.7 X10*3/uL (1.2-4.9); Lymphocytes Percent Auto 26.6 % (20-40); Mean Corpuscular HGB Conc 34.7 g/dl (31.0-36.0); Mean Corpuscular Hemoglobin 30.4 pg (27.0-33.0); Mean Corpuscular Volume 87.8 fL (80.0-98.0); Mean Platelet Volume 10.1 fL (9.4-12.4); Monocytes Absolute Auto 0.6 X10*3/uL (0.1-1.2); Neutrophils Absolute Auto 3.2 x10*3/uL (2.0-8.3); Neutrophils Percent Auto 51.5 % (45-73); Platelet Count 165 X10*3/uL (160-400); Red Blood Count 4.27 X10*6/uL (4.60-5.80); Red Cell Distribution Width 13.1 % (11.0-16.0); White Blood Count 6.2 X10*3/uL (4.8-10.8)
[2025-02-04 06:33] LABS: Alanine Aminotransferase 39 U/L (0-40); Albumin Level 3.4 g/dL (3.5-5.0); Alkaline Phosphatase 71 U/L (39-117); Anion Gap 13 (12-20); Aspartate Amino Transferase 31 U/L (5-37); Bilirubin Total 0.5 mg/dL (0.0-1.0); Blood Urea Nitrogen 11 mg/dL (9-16); Calcium 8.6 mg/dL (8.4-10.2); Carbon Dioxide 22 mmol/L (22-29); Chloride 107 mmol/L (96-108); Creatinine Clr Calc Pharmacy 67.5; Estimated Glomerular Filt Rate > 60; Glucose Random 145 mg/dL (60-115); Potassium 4.3 mmol/L (3.3-5.1); Sodium 138 mmol/L (135-145); Total Protein 6.7 g/dL (6.5-8.0)
[2025-02-04 06:48] LABS: Estimated Average Glucose 186 mg/dL; Hemoglobin A1C 221.6728 umol/L; Hemoglobin A1c % 8.1 % (<6.0); Total Hemoglobin (HGBA1C) 3399.5918 umol/L
--- NOTE | 2025-02-04 07:00 | CA_ITS ---
Transthoracic Echocardiogram Patient (Last, First, Middle): Dylan Manriquez, Gender: Male Date of : 1965 Age: 59 Procedure Date: 02/04/2025 Procedure Type: Transthoracic Echocardiogram Location: [facility] [place] Height: 172.72 cm Weight: 58.06 kg BSA: 1.69 m2 Heart Rate: 90 bpm BP: 163 / 94 mmHg Pretzel Cooker: BRINA Referring MD: Char Arreguin [facility] Activity Therapy Teacher: Isaac Leach MD Symptoms: syncope Study Quality: Adequate ECG Rhythm: Sinus Conclusions: - 1. Normal LV ejection fraction 55-60% 2. Moderate mitral calcification with normal cardiac valvular Dopplers 3. No gross pericardial effusion Findings Left Ventricle Normal left ventricular size, thickness, and systolic function. The visually estimated ejection fraction is between 55-60%. Spectral Doppler is indicative of an impaired relaxation filling pattern. E/E prime ratio is between 8 and 15 consistent with indeterminate filling pressures. There is mild septal asymmetric hypertrophy. Right Ventricle Normal right ventricular cavity size and systolic function. Atria Both atria are normal in size. Interatrial shunt cannot be excluded. Aortic Valve Normal aortic valve structure and function. There is no aortic valve stenosis. There is no aortic valve regurgitation. Mitral Valve There is mild anterior and moderate posterior mitral leaflet thickening. There is moderate mitral annular calcification. There is trace mitral valve regurgitation. There is no mitral valve stenosis. Pulmonic Valve The pulmonic valve was not well visualized. Tricuspid Valve Likely normal tricuspid valve structure and function. Tricuspid regurgitation envelope is inadequate for calculation of right ventricular systolic pressure. Normal right atrial pressure. Great Vessels All visible segments of the aorta are normal in size. The pulmonary artery was not well visualized. There is no dilatation of the ascending aorta measuring 3.20 cm. Venous The inferior vena cava is normal in size and collapses greater than 50% with inspiration. Pericardium/Pleural There is no evidence of pericardial effusion. Prior Study Comparison No significant change compared to prior study dated: 09/05/2023. Measurements 2D Linear Measurements IVSd: 0.89 0.6-0.9/0.6-1.0 cm LVIDd: 3.94 3.9-5.3/4.2-5.9 cm LVIDd Index: 2.33 2.4-3.2/2.2-3.1 cm/m2 LVIDs: 2.95 2.0-3.6 cm LA Diam: 3.30 2.7-3.8/3.0-4.0 cm LAIDs Index: 1.95 1.5-2.3 cm/m2 LVOT Diam: 2.30 3.0+(-)1.3 cm 2D Systolic Function EF 4C: 60.70 >55% Mitral Valve MV VTI: 0.22 MV Pk Marvin: 1.18 MV Mn Marvin: 0.81 MV Pk Grad: 6.00 MV Mn Grad: 3.00 MV Pk E: 0.87 MV PK A: 1.15 MV Decel Time: 157.00 E/A: 0.80 E'Lateral: 10.70 E'Medial: 6.20 E/E' Med: 14.00 E/E' Lat: 8.10 PHT: 46.00 MVA PHT: 4.78 MVA Continuity: 4.90 Decel [place]: 5.53 Aortic Valve AoV Pk Marvin: 1.16 AoV Pk Grad: 5.00 CARLOS: 4.22 LVOT LVOT Pk Marvin: 1.15 LVOT Mn Marvin: 0.88 LVOT VTI: 0.25 LVOT Pk Grad: 5.00 LVOT Mn Grad: 3.00 LVOT Diam: 2.30 LVOT Area: 4.15 Diastolic Function MV Pk E: 0.87 MV Pk A: 1.15 E/A: 0.80 E'Medial: 6.20 E/E' Med: 14.00 E' Laterial: 10.70 E/E' Lat: 8.10 Right Ventricle TAPSE (mm): 23.50 TVS' Marvin: 14.90 Tricuspid Valve RA Press: 3.00 Great Vessels Aorta Sinus of Valsalva: 3.30 2.0-3.5 cm Ao Asc: 3.20 2.1-3.4 cm Pulmonary Veins Pulm Vein S/D 1.80 Pulmonary Valve PV Pk Marvin: 1.00 Peak PV Grad: 4.00 Updated in Other Vendor System with Status of Final Isaac Leach MD electronically signed on 02/04/2025 4:23:00 PM with status of Final
[2025-02-04] MEDS: oxyCODONE HCl Immed Release 5 MG TABLET PO ×3 (07:34→17:35)
[2025-02-04] MEDS: 0.9 % Sodium Chloride Flush 3 ML SYRINGE IVFLUSH ×3 (07:34→21:22)
[2025-02-04 08:20] LABS: Glucose, Whole Blood 117 mg/dL (60-115)
--- NOTE | 2025-02-04 08:54 | P.PNIM_ITS ---
Subjective Subjective Date of Service: 02/04/25 Interval History: Follow up fall and syncope, orthostasis No dizziness at this time Review of Systems Review of Systems: Yes all other systems are reviewed and are negative Physical Exam 2 Vital Signs: Vital Signs: Last Vital Signs Temp 98.4 F 02/04/25 07:58 Pulse 100 02/04/25 08:26 Resp 17 02/04/25 07:58 BP 124/83 02/04/25 08:26 Pulse Ox 99 02/04/25 07:58 O2 Del Method Room Air 02/04/25 07:58 BMI result Body Mass Index 19.5 Appearing in no acute distress lung sounds are clear to auscultation heart regular rate rhythm, clear S1, S2 positive bowel sounds, abdomen is soft, nontender neuro patient is alert x3, no focal deficits Right leg cast Objective Data Active Medications Acetaminophen (Acetaminophen 325 Mg Tablet) 650 mg PO Q6H PRN PRN Reason: Pain, Mild 1-3,fever,headache Acetaminophen (Acetaminophen 325 Mg Tablet) 650 mg PO Q6H PRN PRN Reason: Pain, Mild 1-3,fever,headache Calcium Carbonate (Calcium Carbonate 750 Mg Tab.Chew) 750 mg PO Q4H PRN PRN Reason: Heartburn Calcium Carbonate (Calcium Carbonate 750 Mg Tab.Chew) 750 mg PO Q4H PRN PRN Reason: Heartburn Dextrose (Dextrose 50 % 25 Gm/50 Ml Syringe) 25 gm IVPUSH Q15M PRN; Protocol PRN Reason: per Hypoglycemia Standing Ord. Enoxaparin Sodium (Enoxaparin Sodium 40 Mg/0.4 Ml Syringe) 40 mg SUBCUT Q24H [facility] Last Admin: 02/03/25 19:16 Dose: 40 mg Documented By: ARMINDA Glucose (Glucose Gel 15 Gm Gel..Gram.) 15 gm PO Q15M PRN; Protocol PRN Reason: per Hypoglycemia Standing Ord. Hydromorphone HCl (Hydromorphone Hcl 0.5 Mg/0.5 Ml Syringe) 0.5 mg IVPUSH Q4H PRN; Protocol PRN Reason: Pain, Severe (Pain Scale 7-10) Sodium Chloride (Ns) 1,000 mls @ 100 mls/hr IVCONT .Q10H [facility] Last Admin: 02/04/25 04:37 Dose: 100 mls/hr Documented By: ALICIA Insulin Glargine (Insulin Glargine,Hum.Rec.Anlog 100 Unit/Ml 10 Ml Vial) 10 unit SUBCUT BEDTIME [facility] Last Admin: 02/03/25 23:02 Dose: 10 unit Documented By: ALICIA Insulin Human Lispro (Insulin Lispro 100 Unit/Ml 3 Ml Vial) 0 unit SUBCUT QIDACHS [facility]; Protocol Last Admin: 02/04/25 08:28 Dose: Not Given Documented By: JEAN PAUL Non-Admin Reason: poc= 117 Magnesium Hydroxide (Milk Of Magnesia 30 Ml Oral.Susp) 30 ml PO DAILY PRN PRN Reason: Constipation Magnesium Hydroxide (Milk Of Magnesia 30 Ml Oral.Susp) 30 ml PO DAILY PRN PRN Reason: Constipation Melatonin (Melatonin 3 Mg Tablet) 6 mg PO BEDTIME PRN PRN Reason: Insomnia Melatonin (Melatonin 3 Mg Tablet) 6 mg PO BEDTIME PRN PRN Reason: Insomnia Omeprazole (Omeprazole 20 Mg Capsule.Dr) 20 mg PO DAILY@0630 [facility] Last Admin: 02/04/25 04:40 Dose: 20 mg Documented By: ALICIA Ondansetron HCl (Ondansetron Hcl 4 Mg/2 Ml Vial) 4 mg IVPUSH Q8H PRN PRN Reason: Nausea and Vomiting Oxycodone HCl (Oxycodone Hcl Immed Release 5 Mg Tablet) 5 mg PO Q4H PRN PRN Reason: Pain, Moderate(Pain Scale 4-6) Last Admin: 02/04/25 07:34 Dose: 5 mg Documented By: JEAN PAUL Senna (Sennosides 8.6 Mg Tablet) 17.2 mg PO BEDTIME [facility] Last Admin: 02/03/25 23:07 Dose: 17.2 mg Documented By: ALICIA Sodium Chloride (0.9 % Sodium Chloride Flush 3 Ml Syringe) 3 ml IVFLUSH [facility] Last Admin: 02/04/25 07:34 Dose: 3 ml Documented By: JEAN PAUL Sodium Chloride (0.9 % Sodium Chloride Flush 3 Ml Syringe) 3 ml IVFLUSH [facility] Last Admin: 02/04/25 07:34 Dose: Not Given Documented By: JEAN PAUL Non-Admin Reason: Duplicate Order Labs 02/04/25 05:43 02/04/25 05:43 Labs: Laboratory Results - last 24 hr 02/03/25 02/03/25 02/03/25 14:37 15:40 18:53 MCV 89.0 MCH 30.3 MCHC 34.0 RDW 13.2 Plt Count 183 D MPV 10.1 Immature Gran % (Auto) 0.2 Neut % (Auto) 56.6 Lymph % (Auto) 26.0 Garrett % (Auto) 8.7 Eos % (Auto) 7.7 H Baso % (Auto) 0.8 Lymph # (Auto) 1.7 Garrett # (Auto) 0.6 Eos # (Auto) 0.5 H Baso # (Auto) 0.1 Abs Immat Gran (auto) 0.01 Absolute Neuts (auto) 3.6 Absolute Nucleated RBC 0.000 Nucleated RBC % (auto) 0.0 PT 11.7 INR 1.0 D-Dimer High Sensitivty 1006 Anion Gap 19 15 Estim Creat Clear Calc 41.2 55.5 Estimated GFR 45 > 60 POC Glucose Random Glucose 476 H* 196 H Estimat Average Glucose Hemoglobin A1c % Calcium 10.2 D 9.1 D Magnesium 2.3 Total Bilirubin 0.6 AST 37 ALT 58 H Alkaline Phosphatase 80 B-Natriuretic Peptide 26 Total Protein 7.6 Albumin 4.0 TSH 3.72 Free T4 0.91 Urine Color Yellow Urine Appearance Clear Urine pH 5.5 Ur Specific [place] 1.025 Urine Protein Negative Urine Glucose (UA) >=1000 H Urine Ketones Negative Urine Blood Negative Urine Nitrite Negative Ur Leukocyte Esterase Negative Urine RBC 0-2 Urine WBC 0-5 Ur Squamous Epith Cells 0-2 Urine Bacteria None Seen Hyaline Casts 0-2 Influenza Type A (PCR) NEGATIVE Influenza Type B (PCR) NEGATIVE RSV RNA Qual (PCR) NEGATIVE SARS-CoV-2 RNA (RT-PCR) NEGATIVE 02/03/25 02/04/25 02/04/25 21:54 05:43 07:57 MCV 87.8 MCH 30.4 MCHC 34.7 RDW 13.1 Plt Count 165 MPV 10.1 Immature Gran % (Auto) 0.2 Neut % (Auto) 51.5 Lymph % (Auto) 26.6 Garrett % (Auto) 10.0 Eos % (Auto) 10.9 H Baso % (Auto) 0.8 Lymph # (Auto) 1.7 Garrett # (Auto) 0.6 Eos # (Auto) 0.7 H Baso # (Auto) 0.1 Abs Immat Gran (auto) 0.01 Absolute Neuts (auto) 3.2 Absolute Nucleated RBC 0.000 Nucleated RBC % (auto) 0.0 PT INR D-Dimer High Sensitivty Anion Gap 13 Estim Creat Clear Calc 67.5 Estimated GFR > 60 POC Glucose 196 H 117 H Random Glucose 145 H Estimat Average Glucose 186 Hemoglobin A1c % 8.1 H Calcium 8.6 Magnesium Total Bilirubin 0.5 AST 31 ALT 39 Alkaline Phosphatase 71 B-Natriuretic Peptide Total Protein 6.7 Albumin 3.4 L TSH Free T4 Urine Color Urine Appearance Urine pH Ur Specific [place] Urine Protein Urine Glucose (UA) Urine Ketones Urine Blood Urine Nitrite Ur Leukocyte Esterase Urine RBC Urine WBC Ur Squamous Epith Cells Urine Bacteria Hyaline Casts Influenza Type A (PCR) Influenza Type B (PCR) RSV RNA Qual (PCR) SARS-CoV-2 RNA (RT-PCR) Assessment and Plan (1) Type 2 diabetes mellitus: Status: Acute Plan Patient is a 59-year-old male with past medical history osteoarthritis, GERD, insulin-dependent diabetes type 2, right elbow replacement, syncope, orthostasis, severe depression, bipolar disorder, schizoaffective disorder, urinary incontinence, penile pump for erectile dysfunction, degenerative spine disease and cervical spine surgery, right hand trauma, essential tremor, history of alcohol abuse, history of cocaine abuse, history of tobacco abuse and patient is a Jehovah Witness and is against blood transfusions admitted for syncope/ orthostasis, R ankle injury currently splinted, hyperkalemia, hyperglycemia, depression and no current access to psychiatric care due to recent move. Syncope/Orthostasis, acute on chronic Cardiology consulted ECHO and carotid dopplers ordered TEDS ordered orthostatics QShift X48 hours hold fludrocortisol Troponin, BNP and ECG WNL Hyperkalemia. Resolved Lokelma in ED, 10 gms R malleolus/distal fibula fracture Orthopedics consulted pain well controlled Hyperglycemia/ IDDM II Pt has been non compliant with insulin and checking BG levels over last 2-3 months due to move from [place] and depression. BG 476 closed AG SSI, Lantus 10 HS AIC 8.1 Diabetic diet unclear if pt is still using Trulicity weekly, if so this could be contributing to poor appetite (no wt loss or constipation reported) Depression/schizoaffective disorder/ Bipolar Await med rec, review with sister if pt has had access to usual medications, pt states no psych meds in 2-3 months Essential tremor Chronic with no report of hx of tardive dyskinesia, EPS or parkinson's or parkinsonism like symptoms GERD Omeperazole Jeh[place] Witness no blood transfusions DVT prophylaxis: lovenox Full code Quality Stroke Does the patient have a stroke diagnosis?: No Reason for No Anti-thrombotic by Day Two: N/A - Med Ordered VTE Prior VTE?: No VTE Risk Level:: Medical - moderate - high VTE Device Contraindication: N/A - Device Ordered VTE Drug Contraindication: N/A - Med Ordered
--- NOTE | 2025-02-04 09:07 | PM.CNOR ---
History of Present Illness HPI Consult date: 02/04/25 Chief complaint: Syncope Narrative: Patient is a 59-year-old male admitted to the hospital for syncope and hyperglycemia Patient was also found to have a right lateral malleolus fracture, minimally displaced Patient resting comfortably in bed this morning Pain well managed No acute events overnight No other acute complaints or concerns at this time PMFSH Past Medical History Medical History (Updated 02/04/25 @ 09:11 by ZOILA Nguyen) Cocaine abuse History of tobacco abuse History of alcohol abuse Penile lump Urinary incontinence GERD (gastroesophageal reflux disease) Osteoarthritis Injury of right hand Syncope Tremor of both hands Chronic low back pain Type 2 diabetes mellitus Depression Bipolar 1 disorder Schizophrenia Family History Family History Mother HTN (hypertension) Diabetes Alzheimer disease Father Diabetes HTN (hypertension) Schizophrenia PVD (peripheral vascular disease) CAD (coronary artery disease) Bipolar 1 disorder Surgical History Surgical History H/O cervical spine surgery Elbow joint replacement status Social History Social History Household Members: Family Household Members Other:: sister Housing: Apartment Do you presently have visiting nurse or other home services: Yes Patient Tobacco Use Status: Former Tobacco user Smoked in Last 30 Days: No Use of substances other than those prescribed or required for medical reasons: No Advance Directives: Yes Advance Directives on File: Yes Advance Directives Date on File: 09/04/23 Do you have a plan to hurt others: No Plan Recently lost weight without trying: No service: No Current occupational status: unemployed Travel History Ebola Risk: Travel/Contact With Anyone From Affected Area/s: No Has Patient Experienced Ebola Symptoms: No Meds Allergies Allergy/AdvReac Type Severity Reaction Status Date / Time No Known Allergies Allergy Mild NONE Verified 02/03/25 13:48 Active Medications: Current Medications Acetaminophen (Acetaminophen 325 Mg Tablet) 650 mg PO Q6H PRN PRN Reason: Pain, Mild 1-3,fever,headache Acetaminophen (Acetaminophen 325 Mg Tablet) 650 mg PO Q6H PRN PRN Reason: Pain, Mild 1-3,fever,headache Calcium Carbonate (Calcium Carbonate 750 Mg Tab.Chew) 750 mg PO Q4H PRN PRN Reason: Heartburn Calcium Carbonate (Calcium Carbonate 750 Mg Tab.Chew) 750 mg PO Q4H PRN PRN Reason: Heartburn Dextrose (Dextrose 50 % 25 Gm/50 Ml Syringe) 25 gm IVPUSH Q15M PRN; Protocol PRN Reason: per Hypoglycemia Standing Ord. Enoxaparin Sodium (Enoxaparin Sodium 40 Mg/0.4 Ml Syringe) 40 mg SUBCUT Q24H [facility] Last Admin: 02/03/25 19:16 Dose: 40 mg Glucose (Glucose Gel 15 Gm Gel..Gram.) 15 gm PO Q15M PRN; Protocol PRN Reason: per Hypoglycemia Standing Ord. Hydromorphone HCl (Hydromorphone Hcl 0.5 Mg/0.5 Ml Syringe) 0.5 mg IVPUSH Q4H PRN; Protocol PRN Reason: Pain, Severe (Pain Scale 7-10) Sodium Chloride (Ns) 1,000 mls @ 100 mls/hr IVCONT .Q10H [facility] Last Admin: 02/04/25 04:37 Dose: 100 mls/hr Insulin Glargine (Insulin Glargine,Hum.Rec.Anlog 100 Unit/Ml 10 Ml Vial) 10 unit SUBCUT BEDTIME [facility] Last Admin: 02/03/25 23:02 Dose: 10 unit Insulin Human Lispro (Insulin Lispro 100 Unit/Ml 3 Ml Vial) 0 unit SUBCUT QIDACHS [facility]; Protocol Last Admin: 02/04/25 08:28 Dose: Not Given Magnesium Hydroxide (Milk Of Magnesia 30 Ml Oral.Susp) 30 ml PO DAILY PRN PRN Reason: Constipation Magnesium Hydroxide (Milk Of Magnesia 30 Ml Oral.Susp) 30 ml PO DAILY PRN PRN Reason: Constipation Melatonin (Melatonin 3 Mg Tablet) 6 mg PO BEDTIME PRN PRN Reason: Insomnia Melatonin (Melatonin 3 Mg Tablet) 6 mg PO BEDTIME PRN PRN Reason: Insomnia Omeprazole (Omeprazole 20 Mg Capsule.Dr) 20 mg PO DAILY@0630 [facility] Last Admin: 02/04/25 04:40 Dose: 20 mg Ondansetron HCl (Ondansetron Hcl 4 Mg/2 Ml Vial) 4 mg IVPUSH Q8H PRN PRN Reason: Nausea and Vomiting Oxycodone HCl (Oxycodone Hcl Immed Release 5 Mg Tablet) 5 mg PO Q4H PRN PRN Reason: Pain, Moderate(Pain Scale 4-6) Last Admin: 02/04/25 07:34 Dose: 5 mg Senna (Sennosides 8.6 Mg Tablet) 17.2 mg PO BEDTIME [facility] Last Admin: 02/03/25 23:07 Dose: 17.2 mg Sodium Chloride (0.9 % Sodium Chloride Flush 3 Ml Syringe) [facility] Last Admin: 02/04/25 07:34 Dose: 3 ml Sodium Chloride (0.9 % Sodium Chloride Flush 3 Ml Syringe) 3 ml IVFLUSH [facility] Last Admin: 02/04/25 07:34 Dose: Not Given Home Medications ?Medication ?Instructions ?Recorded ?Confirmed ?Last Taken ?Type diclofenac sodium 1 % topical gel 2 g topical BID PRN Pain 06/23/22 09/05/23 Unknown History duloxetine 30 mg capsule,delayed 30 mg PO DAILY 06/23/22 09/05/23 09/04/23 History release gabapentin 300 mg capsule 1 cap PO TID 06/23/22 09/05/23 09/04/23 History insulin glargine 100 unit/mL (3 25 unit subcut QAM 06/23/22 09/05/23 09/04/23 History mL) subcutaneous pen (Lantus Solostar U-100 Insulin) insulin lispro 100 unit/mL 0 sliding scale dose subcut TIDAC 06/23/22 09/04/23 06/23/22 History subcutaneous pen omeprazole 40 mg capsule,delayed 40 mg PO DAILY@0630 06/23/22 09/05/23 09/04/23 History release rosuvastatin 40 mg tablet 1 tab PO BEDTIME 06/23/22 09/05/23 09/04/23 History trazodone 100 mg tablet 1 tab PO BEDTIME 06/23/22 09/05/23 09/04/23 History aspirin 81 mg tablet,delayed 81 mg PO DAILY 09/04/23 09/05/23 09/04/23 History release dulaglutide 1.5 mg/0.5 mL 1.5 mg subcut QWEEK 09/04/23 09/05/23 Unknown History subcutaneous pen injector (Trulicity) metformin 500 mg tablet 500 mg PO BID 09/04/23 09/05/2309/04/23 History acetaminophen 650 mg 650 mg PO TID 09/05/23 09/05/23 Unknown History tablet,extended release duloxetine 60 mg capsule,delayed 60 mg PO DAILY 09/05/23 09/05/23 09/04/23 History release sprinkle divalproex 250 mg tablet,delayed 500 mg PO BID 02/04/25 Unknown History release fluticasone propionate 50 1 spray intranasal BID 02/04/25 Unknown History mcg/actuation nasal spray,suspension metoprolol succinate 25 mg 50 mg PO DAILY 02/04/25 Unknown History tablet,extended release 24 hr primidone 50 mg tablet 50 mg PO BEDTIME 02/04/25 Unknown History tamsulosin 0.4 mg capsule 0.4 mg PO BEDTIME 02/04/25 Unknown History tramadol 50 mg tablet 50 mg PO TID 02/04/25 Unknown History Physical Exam Vital Signs: Vital Signs: Last Vital Signs Temp 98.4 F 02/04/25 07:58 Pulse 100 02/04/25 08:26 Resp 17 02/04/25 07:58 BP 124/83 02/04/25 08:26 Pulse Ox 99 02/04/25 07:58 O2 Del Method Room Air 02/04/25 07:58 BMI result Body Mass Index 19.5 Extrem: Other: Splint on right ankle clean, dry, intact No evidence of surrounding erythema, ecchymosis No evidence of infection Patient is able to flex and extend the digits of the right foot without difficulty Compartments soft, nontender Distal sensation intact Capillary refill brisk Results Labs 02/04/25 05:43 02/04/25 05:43 Labs: Abnormal lab results 02/03/25 02/03/25 02/03/25 Range/Units 14:37 15:40 18:53 RBC 4.46 L (4.60-5.80) X10*6/uL Hgb 13.5 L (14.0-18.0) g/dl Hct 39.7 L (42.0-52.0) % Eos % (Auto) 7.7 H (0-4) % Eos # (Auto) 0.5 H (0.0-0.4) X10*3/uL Potassium 5.5 H 5.8 H (3.3-5.1) mmol/L BUN 18 H (9-16) mg/dL Creatinine 1.59 H (0.5-1.4) mg/dL POC Glucose (60-115) mg/dL Random Glucose 476 H* 196 H (60-115) mg/dL Hemoglobin A1c % (<6.0) % ALT 58 H (0-40) U/L Albumin (3.5-5.0) g/dL Urine Glucose (UA) >=1000 H (Negative) mg/dL 02/03/25 02/04/25 02/04/25 Range/Units 21:54 05:43 07:57 RBC 4.27 L (4.60-5.80) X10*6/uL Hgb 13.0 L (14.0-18.0) g/dl Hct 37.5 L (42.0-52.0) % Eos % (Auto) 10.9 H (0-4) % Eos # (Auto) 0.7 H (0.0-0.4) X10*3/uL Potassium (3.3-5.1) mmol/L BUN (9-16) mg/dL Creatinine (0.5-1.4) mg/dL POC Glucose 196 H 117 H (60-115) mg/dL Random Glucose 145 H (60-115) mg/dL Hemoglobin A1c % 8.1 H (<6.0) % ALT (0-40) U/L Albumin 3.4 L (3.5-5.0) g/dL Urine Glucose (UA) (Negative) mg/dL H & H 02/03/25 02/04/25 Range/Units 14:37 05:43 Hgb 13.5 L 13.0 L (14.0-18.0) g/dl Hct 39.7 L 37.5 L (42.0-52.0) % Coagulation 02/03/25 Range/Units 14:37 INR 1.0 (0.9-1.1) All other labs normal. Diagnostic results Ankle/Foot x-ray: report reviewed and image reviewed Assessment and Plan (1) Fracture of right ankle, lateral malleolus: Status: Acute Plan 1. Right lateral malleolus fracture Date of injury 02/03/2025 Patient is educated about this condition Patient is educated about the typical treatment course No acute intervention indicated for this fracture while patient is hospitalized Should follow-up with us in outpatient clinic upon discharge Nonweightbearing on right lower extremity Splint must remain clean, dry, intact Elevate right foot and ankle on at least 1-2 pillows as much as possible Continue with all other recommendations per Medicine Procedures Date of Service Date of Service: 02/04/25
--- NOTE | 2025-02-04 09:54 | P.CONCA_ITS ---
History of Present Illness History of Present Illness Date of Service: 02/04/25 [facility] reason: other ( syncope) Chief complaint: Syncope Narrative: I was consulted to see Dylan in cardiology consultation today for syncopal episode leading to right ankle fracture. Patient is a 59-year-old male with prior history of diabetes for about last 30 years, psychiatric disorder on psychoactive medications, prior history of syncope. He said over the last year he has had multiple episodes of syncope in the past. He also has prior history of alcoholism as well as spinal injury and spinal surgeries and corrections he said he has history with peripheral neuropathy with diabetes, related to also spine injury is unclear. Patient came to the hospital after he said that he passed out while walking to the bathroom. He unfortunately does not have any clear aura or symptoms preceding passing out. He said when he is upright these episodes come on to him. He then passes out and wakes up very quickly. Same thing happened. He has no clear seizure disorder noted. He was admitted 1 time in August here with orthostatic hypotension and syncope. Was started on fludrocortisone at that point time. Came in yesterday again with similar episode and noted to have right ankle injury with right ankle fracture unfortunately. Blood pressure initially noted to be in the 80s. Blood pressure now than 150s and 160s supine. Patient is currently not having any cardiac symptoms. Patient denies any palpitations, chest pain, shortness of breath. Overall functionality is limited. He has diffuse tremors of both hands question related to his psychoactive medications and/or Parkinson's disease. Review of Systems 2 Constitutional: Constitutional: Reports poor appetite Eyes: Eyes: Reports no additional eye complaints Cardiovascular: Cardiovascular: Denies chest pain, Denies rapid heart rate, Denies lightheadedness, Reports Loss of Consciousness, Denies palpitations and Denies dyspnea Respiratory: Respiratory: Reports no additional respiratory complaints and Denies dyspnea Gastrointestinal: Gastrointestinal: Reports no additional gastrointestinal complaints Genitourinary: Genitourinary: Reports no additional male genitourinary complaints Integumentary/Breasts: Skin/Breast: Reports system reviewed and no additional complaints, except as docu Psychiatric: Psychiatric: Reports no additional psychiatric complaints Endocrine: Endocrine: Reports no additional endocrine complaints and Denies palpitations PMFSH Past Medical History Medical History Cocaine abuse History of tobacco abuse History of alcohol abuse Penile lump Urinary incontinence GERD (gastroesophageal reflux disease) Osteoarthritis Injury of right hand Syncope Tremor of both hands Chronic low back pain Type 2 diabetes mellitus Depression Bipolar 1 disorder Schizophrenia Family History Family History Mother HTN (hypertension) Diabetes Alzheimer disease Father Diabetes HTN (hypertension) Schizophrenia PVD (peripheral vascular disease) CAD (coronary artery disease) Bipolar 1 disorder Surgical History Surgical History H/O cervical spine surgery Elbow joint replacement status Social History Social History Household Members: Family Household Members Other:: sister Housing: Apartment Do you presently have visiting nurse or other home services: Yes Patient Tobacco Use Status: Former Tobacco user Smoked in Last 30 Days: No Use of substances other than those prescribed or required for medical reasons: No Advance Directives: Yes Advance Directives on File: Yes Advance Directives Date on File: 09/04/23 Do you have a plan to hurt others: No Plan Recently lost weight without trying: No service: No Current occupational status: unemployed Travel History Ebola Risk: Travel/Contact With Anyone From Affected Area/s: No Has Patient Experienced Ebola Symptoms: No Meds Allergies Allergy/AdvReac Type Severity Reaction Status Date / Time No Known Allergies Allergy Mild NONE Verified 02/03/25 13:48 Active Medications: Current Medications Acetaminophen (Acetaminophen 325 Mg Tablet) 650 mg PO Q6H PRN PRN Reason: Pain, Mild 1-3,fever,headache Acetaminophen (Acetaminophen 325 Mg Tablet) 650 mg PO Q6H PRN PRN Reason: Pain, Mild 1-3,fever,headache Calcium Carbonate (Calcium Carbonate 750 Mg Tab.Chew) 750 mg PO Q4H PRN PRN Reason: Heartburn Calcium Carbonate (Calcium Carbonate 750 Mg Tab.Chew) 750 mg PO Q4H PRN PRN Reason: Heartburn Dextrose (Dextrose 50 % 25 Gm/50 Ml Syringe) 25 gm IVPUSH Q15M PRN; Protocol PRN Reason: per Hypoglycemia Standing Ord. Enoxaparin Sodium (Enoxaparin Sodium 40 Mg/0.4 Ml Syringe) 40 mg SUBCUT Q24H [facility] Last Admin: 02/03/25 19:16 Dose: 40 mg Glucose (Glucose Gel 15 Gm Gel..Gram.) 15 gm PO Q15M PRN; Protocol PRN Reason: per Hypoglycemia Standing Ord. Hydromorphone HCl (Hydromorphone Hcl 0.5 Mg/0.5 Ml Syringe) 0.5 mg IVPUSH Q4H PRN; Protocol PRN Reason: Pain, Severe (Pain Scale 7-10) Sodium Chloride (Ns) 1,000 mls @ 100 mls/hr IVCONT .Q10H [facility] Last Admin: 02/04/25 04:37 Dose: 100 mls/hr Insulin Glargine (Insulin Glargine,Hum.Rec.Anlog 100 Unit/Ml 10 Ml Vial) 10 unit SUBCUT BEDTIME [facility] Last Admin: 02/03/25 23:02 Dose: 10 unit Insulin Human Lispro (Insulin Lispro 100 Unit/Ml 3 Ml Vial) 0 unit SUBCUT QIDACHS [facility]; Protocol Last Admin: 02/04/25 08:28 Dose: Not Given Magnesium Hydroxide (Milk Of Magnesia 30 Ml Oral.Susp) 30 ml PO DAILY PRN PRN Reason: Constipation Magnesium Hydroxide (Milk Of Magnesia 30 Ml Oral.Susp) 30 ml PO DAILY PRN PRN Reason: Constipation Melatonin (Melatonin 3 Mg Tablet) 6 mg PO BEDTIME PRN PRN Reason: Insomnia Melatonin (Melatonin 3 Mg Tablet) 6 mg PO BEDTIME PRN PRN Reason: Insomnia Omeprazole (Omeprazole 20 Mg Capsule.Dr) 20 mg PO DAILY@0630 [facility] Last Admin: 02/04/25 04:40 Dose: 20 mg Ondansetron HCl (Ondansetron Hcl 4 Mg/2 Ml Vial) 4 mg IVPUSH Q8H PRN PRN Reason: Nausea and Vomiting Oxycodone HCl (Oxycodone Hcl Immed Release 5 Mg Tablet) 5 mg PO Q4H PRN PRN Reason: Pain, Moderate(Pain Scale 4-6) Last Admin: 02/04/25 07:34 Dose: 5 mg Senna (Sennosides 8.6 Mg Tablet) 17.2 mg PO BEDTIME [facility] Last Admin: 02/03/25 23:07 Dose: 17.2 mg Sodium Chloride (0.9 % Sodium Chloride Flush 3 Ml Syringe) [facility] Last Admin: 02/04/25 07:34 Dose: 3 ml Sodium Chloride (0.9 % Sodium Chloride Flush 3 Ml Syringe) 3 ml IVFLUSH [facility] Last Admin: 02/04/25 07:34 Dose: Not Given Home Medications ?Medication ?Instructions ?Recorded ?Confirmed ?Last Taken ?Type diclofenac sodium 1 % topical gel 2 g topical BID PRN Pain 06/23/22 09/05/23 Unknown History duloxetine 30 mg capsule,delayed 30 mg PO DAILY 06/23/22 09/05/23 09/04/23 History release gabapentin 300 mg capsule 1 cap PO TID 06/23/22 09/05/23 09/04/23 History insulin glargine 100 unit/mL (3 25 unit subcut QAM 06/23/22 09/05/23 09/04/23 History mL) subcutaneous pen (Lantus Solostar U-100 Insulin) insulin lispro 100 unit/mL 0 sliding scale dose subcut TIDAC 06/23/22 09/04/23 06/23/22 History subcutaneous pen omeprazole 40 mg capsule,delayed 40 mg PO DAILY@0630 06/23/22 09/05/23 09/04/23 History release rosuvastatin 40 mg tablet 1 tab PO BEDTIME 06/23/22 09/05/23 09/04/23 History trazodone 100 mg tablet 1 tab PO BEDTIME 06/23/22 09/05/23 09/04/23 History aspirin 81 mg tablet,delayed 81 mg PO DAILY 09/04/23 09/05/23 09/04/23 History release dulaglutide 1.5 mg/0.5 mL 1.5 mg subcut QWEEK 09/04/23 09/05/23 Unknown History subcutaneous pen injector (Trulicity) metformin 500 mg tablet 500 mg PO BID 09/04/23 09/05/23 09/04/23 History acetaminophen 650 mg 650 mg PO TID 09/05/23 09/05/23 Unknown History tablet,extended release duloxetine 60 mg capsule,delayed 60 mg PO DAILY 09/05/23 09/05/23 09/04/23 History release sprinkle divalproex 250 mg tablet,delayed 500 mg PO BID 02/04/25 Unknown History release fluticasone propionate 50 1 spray intranasal BID 02/04/25 Unknown History mcg/actuation nasal spray,suspension metoprolol succinate 25 mg 50 mg PO DAILY 02/04/25 Unknown History tablet,extended release 24 hr primidone 50 mg tablet 50 mg PO BEDTIME 02/04/25 Unknown History tamsulosin 0.4 mg capsule 0.4 mg PO BEDTIME 02/04/25 Unknown History tramadol 50 mg tablet 50 mg PO TID 02/04/25 Unknown History Physical Exam 2 Vital Signs: Vital Signs: Last Vital Signs Temp 98.4 F 02/04/25 07:58 Pulse 100 02/04/25 08:26 Resp 17 02/04/25 07:58 BP 124/83 02/04/25 08:26 Pulse Ox 99 02/04/25 07:58 O2 Del Method Room Air 02/04/25 07:58 BMI result Body Mass Index 19.5 Const: General: cooperative, comfortable, no acute distress, alert and awake Nutritional Appearance: average body habitus Orientation/consciousness: p atient oriented x3 HEENT: Head: Yes normocephalic and Yes atraumatic Neck: Neck: Yes trachea midline, Yes supple and Yes no JVD Resp: Effort & Inspection: normal respiratory effort Auscultation: clear to auscultation bilaterally Cardio: Jugular venous distension: no JVD Rate: regular rate Rhythm: r egular rhythm Heart sounds: S1 normal heart sound present, S2 normal heart sound present, no click, no gallops, no murmurs and no rubs GI: Auscultation: normal bowel sounds Skin: General skin exam: no rashes or lesions noted Neuro: General: patient oriented x3, no focal motor deficits and other ( Bilateral tremors) Extrem: General: Yes no clubbing, cyanosis or edema Objective Labs and Meds 02/04/25 05:43 02/04/25 05:43 Lab results: Laboratory Results - last 24 hr 02/03/25 02/03/25 02/03/25 14:37 15:40 18:53 WBC 6.3 RBC 4.46 L Hgb 13.5 L Hct 39.7 L MCV 89.0 MCH 30.3 MCHC 34.0 RDW 13.2 Plt Count 183 D MPV 10.1 Immature Gran % (Auto) 0.2 Neut % (Auto) 56.6 Lymph % (Auto) 26.0 Ritchie % (Auto) 8.7 Eos % (Auto) 7.7 H Baso % (Auto) 0.8 Lymph # (Auto) 1.7 Ritchie # (Auto) 0.6 Eos # (Auto) 0.5 H Baso # (Auto) 0.1 Abs Immat Gran (auto) 0.01 Absolute Neuts (auto) 3.6 Absolute Nucleated RBC 0.000 Nucleated RBC % (auto) 0.0 PT 11.7 INR 1.0 D-Dimer High Sensitivty 1006 Sodium 138 142 Potassium 5.5 H 5.8 H Chloride 99 106 Carbon Dioxide 26 27 Anion Gap 19 15 BUN 18 H 16 Creatinine 1.59 H 1.18 Estim Creat Clear Calc 41.2 55.5 Estimated GFR 45 > 60 POC Glucose Random Glucose 476 H* 196 H Estimat Average Glucose Hemoglobin A1c % Calcium 10.2 D 9.1 D Magnesium 2.3 Total Bilirubin 0.6 AST 37 ALT 58 H Alkaline Phosphatase 80 Troponin I High Sens < 2.7 B-Natriuretic Peptide 26 Total Protein 7.6 Albumin 4.0 TSH 3.72 Free T4 0.91 Urine Color Yellow Urine Appearance Clear Urine pH 5.5 Ur Specific Lincoln 1.025 Urine Protein Negative Urine Glucose (UA) >=1000 H Urine Ketones Negative Urine Blood Negative Urine Nitrite Negative Ur Leukocyte Esterase Negative Urine RBC 0-2 Urine WBC 0-5 Ur Squamous Epith Cells 0-2 Urine Bacteria None Seen Hyaline Casts 0-2 Influenza Type A (PCR) NEGATIVE Influenza Type B (PCR) NEGATIVE RSV RNA Qual (PCR) NEGATIVE SARS-CoV-2 RNA (RT-PCR) NEGATIVE 02/03/25 02/04/25 02/04/25 21:54 05:43 07:57 WBC 6.2 RBC 4.27 L Hgb 13.0 L Hct 37.5 L MCV 87.8 MCH 30.4 MCHC 34.7 RDW 13.1 Plt Count 165 MPV 10.1 Immature Gran % (Auto) 0.2 Neut % (Auto) 51.5 Lymph % (Auto) 26.6 Ritchie % (Auto) 10.0 Eos % (Auto) 10.9 H Baso % (Auto) 0.8 Lymph # (Auto) 1.7 Ritchie # (Auto) 0.6 Eos # (Auto) 0.7 H Baso # (Auto) 0.1 Abs Immat Gran (auto) 0.01 Absolute Neuts (auto) 3.2 Absolute Nucleated RBC 0.000 Nucleated RBC % (auto) 0.0 PT INR D-Dimer High Sensitivty Sodium 138 Potassium 4.3 D Chloride 107 Carbon Dioxide 22 Anion Gap 13 BUN 11 Creatinine 0.97 Estim Creat Clear Calc 67.5 Estimated GFR > 60 POC Glucose 196 H 117 H Random Glucose 145 H Estimat Average Glucose 186 Hemoglobin A1c % 8.1 H Calcium 8.6 Magnesium Total Bilirubin 0.5 AST 31 ALT 39 Alkaline Phosphatase 71 Troponin I High Sens B-Natriuretic Peptide Total Protein 6.7 Albumin 3.4 L TSH Free T4 Urine Color Urine Appearance Urine pH Ur Specific Lincoln Urine Protein Urine Glucose (UA) Urine Ketones Urine Blood Urine Nitrite Ur Leukocyte Esterase Urine RBC Urine WBC Ur Squamous Epith Cells Urine Bacteria Hyaline Casts Influenza Type A (PCR) Influenza Type B (PCR) RSV RNA Qual (PCR) SARS-CoV-2 RNA (RT-PCR) Assessment and Plan (1) Dysautonomia orthostatic hypotension syndrome: Status: Acute patient with syncope secondary to orthostatic hypotension and has had this in the past with supine hypertension now suggestive of this autonomic syndrome with labile blood pressure most likely related to I had the longstanding diabetes with neuropathy and/or central parkinsonian syndrome. this is an extremely difficult clinical scenario to treat as patient does not have clear aura prior to passing out that can be corrected quickly. Patient does pass out and has significant injury especially current admission with right ankle fracture. Likelihood to have these episodes in the future. These low blood pressure issues may need to be treated with vasoconstrictors such as midodrine and/or Northera. We can start him on midodrine 2.5 mg initially and b.i.d. prior to breakfast and lunch so as to make him able to be able to somewhat upright in the day hours. This is likely to cause supine hypertension which can then be treated with low dose short-acting vasodilators such as hydralazine to be given at nighttime to avoid significant supine nocturnal hypotension. Again mentioned with patient about difficulty in managing this situation. He should be adequately hydrated and advised him to continue to push fluid. For now I would treat him for 1 more day of IV fluids. Check orthostatic vitals frequently. Other potential interventions who can perform is to sleep in his semi reclining position to reduce risk of sudden change in position and was this into eventually may mitigate his orthostatic hypotension hopefully. Also compression stockings can help. Overall though this is a difficult clinical scenario and will have to titrate his medications as tolerated and assessing his response. Will sign of the case. Thank you for allowing me to partake in his care Procedures Date of Service Date of Service: 02/04/25
--- NOTE | 2025-02-04 10:25 | MHC.CM.PN ---
IMM 02/04/25 S/P Fall, Ankle FX He lives with his sister. She is his Primary before and after school daycare worker. She is admitted to [facility] too. She passed out and broke her ankle in the front loby. She was coming in to visit her brother. DME Cane Walker Requires assist with ADLs. He does not have a PCP. He was on Brule Pace. His PCP was Ashlee Coon. Now he is active with [employer] insurance. [facility] Doctors brochure has been provided. DP pending PT eval STR via BLS vs home with services. He may need assist from [facility] transport.
[2025-02-04 11:25] LABS: Glucose, Whole Blood 258 mg/dL (60-115)
[2025-02-04] MEDS: Insulin Lispro 100 UNIT/ML 3 ML VIAL SUBCUT ×3 (11:50→21:21)
[2025-02-04] MEDS: Midodrine HCl 2.5 MG TABLET PO ×2 (11:50→21:20)
--- NOTE | 2025-02-04 12:40 | PHA.MEDREC ---
Pharmacy Consult ? Medication Reconciliation Pharmacy has completed the medication reconciliation. Rachna spoke with patient to confirm meds, but patient was unaware of dosages for most, pt referrefili hutchison to contact sister. [facility] did the med rec with sister to confirm meds. Both pt and sister state she takes tramadol for bedtime, flonase prn for sinus pressure, metoprolol at night. There are no claims for insulin, but both pt and sister confirmed Lantus 25 units HS and lispro sliding scale. Pt takes metformin 850mg BID with meals. Trulicity on Tuesdays.
[2025-02-04 15:51] LABS: Glucose, Whole Blood 278 mg/dL (60-115)
[2025-02-04] MEDS: Enoxaparin Sodium 40 MG/0.4 ML SYRINGE SUBCUT (17:21)
[2025-02-04 21:07] LABS: Glucose, Whole Blood 200 mg/dL (60-115)
[2025-02-04] MEDS: Sennosides 8.6 MG TABLET 17.2 MG PO (21:20)
[2025-02-04] MEDS: traMADoL HCL 50 MG TABLET PO (21:20)
[2025-02-04] MEDS: Gabapentin 300 MG CAPSULE 600 MG PO (21:20)
[2025-02-04] MEDS: QUEtiapine Fumarate 100 MG TABLET PO (21:20)
[2025-02-04] MEDS: Primidone 50 MG TABLET PO (21:20)
[2025-02-04] MEDS: Atorvastatin Calcium 80 MG TABLET PO (21:20)
[2025-02-04] MEDS: Divalproex Sodium 500 MG TABLET.DR PO (21:21)
[2025-02-04] MEDS: Insulin Glargine,Hum.rec.anlog 100 UNIT/ML 10 ML VIAL 10 UNIT SUBCUT (21:21)
[2025-02-04] MEDS: Metoprolol Succinate ER 50 MG TAB.ER.24H PO (21:21)
[2025-02-05] VITALS (12 sets, daily range): BP systolic 92–154; BP diastolic 58–90; PULSE 78–95; RESP 16–18; TEMP 36.1–36.6; O2SAT 96–100
[2025-02-05] MEDS: Omeprazole 40 MG CAPSULE.DR PO (06:39)
[2025-02-05] MEDS: oxyCODONE HCl Immed Release 5 MG TABLET PO ×3 (06:39→16:20)
[2025-02-05 08:02] LABS: Glucose, Whole Blood 154 mg/dL (60-115)
[2025-02-05] MEDS: Insulin Lispro 100 UNIT/ML 3 ML VIAL SUBCUT ×4 (08:14→21:02)
[2025-02-05] MEDS: Gabapentin 300 MG CAPSULE 600 MG PO ×2 (08:14→21:00)
[2025-02-05] MEDS: Aspirin Enteric Coated 81 MG TABLET.DR PO (08:14)
[2025-02-05] MEDS: DULoxetine HCl 30 MG CAPSULE.DR PO (08:14)
[2025-02-05] MEDS: DULoxetine HCl 60 MG CAPSULE.DR PO (08:14)
[2025-02-05] MEDS: Acetaminophen 325 MG TABLET 650 MG PO (08:14)
[2025-02-05] MEDS: Divalproex Sodium 500 MG TABLET.DR PO ×2 (08:14→21:00)
[2025-02-05] MEDS: Midodrine HCl 2.5 MG TABLET PO ×2 (08:14→21:01)
[2025-02-05] MEDS: 0.9 % Sodium Chloride Flush 3 ML SYRINGE IVFLUSH ×3 (08:15→21:02)
[2025-02-05] MEDS: 0.9 % Sodium Chloride 1,000 ML 100 ML IVCONT (09:05)
--- NOTE | 2025-02-05 10:35 | HO.PM.IMPN ---
Subjective Subjective Date of Service: 02/05/25 Interval History: Follow up fall and syncope, orthostasis No dizziness at this time Review of Systems Review of Systems: Yes all other systems are reviewed and are negative Physical Exam Vital Signs: Vital Signs: Last Vital Signs Temp 97.2 F 02/05/25 07:18 Pulse 80 02/05/25 09:00 Resp 18 02/05/25 07:18 BP 114/76 02/05/25 09:00 Pulse Ox 96 02/05/25 07:18 O2 Del Method Room Air 02/05/25 07:18 BMI result Body Mass Index 19.5 Appearing in no acute distress lung sounds are clear to auscultation heart regular rate rhythm, clear S1, S2 positive bowel sounds, abdomen is soft, nontender neuro patient is alert x3, no focal deficits Objective Data Active Medications Acetaminophen (Acetaminophen 325 Mg Tablet) 650 mg PO Q6H PRN PRN Reason: Pain, Mild 1-3,fever,headache Last Admin: 02/05/25 08:14 Dose: 650 mg Documented By: DAR Aspirin (Aspirin Enteric Coated 81 Mg Tablet.) 81 mg PO DAILY [facility] Last Admin: 02/05/25 08:14 Dose: 81 mg Documented By: DAR Atorvastatin Calcium (Atorvastatin Calcium 80 Mg Tablet) 80 mg PO BEDTIME [facility] Last Admin: 02/04/25 21:20 Dose: 80 mg Documented By: YOJANA-JACLYNZEKelsea Calcium Carbonate (Calcium Carbonate 750 Mg Tab.Chew) 750 mg PO Q4H PRN PRN Reason: Heartburn Dextrose (Dextrose 50 % 25 Gm/50 Ml Syringe) 25 gm IVPUSH Q15M PRN; Protocol PRN Reason: per Hypoglycemia Standing Ord. Divalproex Sodium (Divalproex Sodium 500 Mg Tablet.) 500 mg PO BID [facility] Last Admin: 02/05/25 08:14 Dose: 500 mg Documented By: DAR Duloxetine HCl (Duloxetine Hcl 30 Mg Capsule.) 30 mg PO DAILY [facility] Last Admin: 02/05/25 08:14 Dose: 30 mg Documented By: DAR Duloxetine HCl (Duloxetine Hcl 60 Mg Capsule.) 60 mg PO DAILY [facility] Last Admin: 02/05/25 08:14 Dose: 60 mg Documented By: DAR Enoxaparin Sodium (Enoxaparin Sodium 40 Mg/0.4 Ml Syringe) 40 mg SUBCUT Q24H [facility] Last Admin: 02/04/25 17:21 Dose: 40 mg Documented By: JEAN PAUL Gabapentin (Gabapentin 300 Mg Capsule) 600 mg PO BID [facility] Last Admin: 02/05/25 08:14 Dose: 600 mg Documented By: DAR Glucose (Glucose Gel 15 Gm Gel..Gram.) 15 gm PO Q15M PRN; Protocol PRN Reason: per Hypoglycemia Standing Ord. Hydromorphone HCl (Hydromorphone Hcl 0.5 Mg/0.5 Ml Syringe) 0.5 mg IVPUSH Q4H PRN; Protocol PRN Reason: Pain, Severe (Pain Scale 7-10) Sodium Chloride (Ns) 1,000 mls @ 100 mls/hr IVCONT .Q10H [facility] Last Admin: 02/05/25 09:05 Dose: 100 mls/hr Documented By: DAR Insulin Glargine (Insulin Glargine,Hum.Rec.Anlog 100 Unit/Ml 10 Ml Vial) 10 unit SUBCUT BEDTIME [facility] Last Admin: 02/04/25 21:21 Dose: 10 unit Documented By: ALICIA Comments: barcode damaged Insulin Human Lispro (Insulin Lispro 100 Unit/Ml 3 Ml Vial) 0 unit SUBCUT QIDACHS [facility]; Protocol Last Admin: 02/05/25 08:14 Dose: 2 unit Documented By: DAR Magnesium Hydroxide (Milk Of Magnesia 30 Ml Oral.Susp) 30 ml PO DAILY PRN PRN Reason: Constipation Melatonin (Melatonin 3 Mg Tablet) 6 mg PO BEDTIME PRN PRN Reason: Insomnia Metoprolol Succinate (Metoprolol Succinate Er 50 Mg Tab.Er.24h) 50 mg PO BEDTIME [facility]; Protocol Last Admin: 02/04/25 21:21 Dose: 50 mg Documented By: ALICIA Midodrine (Midodrine Hcl 2.5 Mg Tablet) 2.5 mg PO BID [facility] Last Admin: 02/05/25 08:14 Dose: 2.5 mg Documented By: DAR Omeprazole (Omeprazole 40 Mg Capsule.Dr) 40 mg PO DAILY@0630 [facility] Last Admin: 02/05/25 06:39 Dose: 40 mg Documented By: ALICIA Ondansetron HCl (Ondansetron Hcl 4 Mg/2 Ml Vial) 4 mg IVPUSH Q8H PRN PRN Reason: Nausea and Vomiting Oxycodone HCl (Oxycodone Hcl Immed Release 5 Mg Tablet) 5 mg PO Q4H PRN PRN Reason: Pain, Moderate(Pain Scale 4-6) Last Admin: 02/05/25 06:39 Dose: 5 mg Documented By: ALICIA Primidone (Primidone 50 Mg Tablet) 50 mg PO BEDTIME [facility] Last Admin: 02/04/25 21:20 Dose: 50 mg Documented By: ALICIA Quetiapine Fumarate (Quetiapine Fumarate 100 Mg Tablet) 100 mg PO BEDTIME [facility] Last Admin: 02/04/25 21:20 Dose: 100 mg Documented By: ALICIA Senna (Sennosides 8.6 Mg Tablet) 17.2 mg PO BEDTIME [facility] Last Admin: 02/04/25 21:20 Dose: 17.2 mg Documented By: ALICIA Sodium Chloride (0.9 % Sodium Chloride Flush 3 Ml Syringe) 3 ml IVFLUSH [facility] Last Admin: 02/05/25 08:15 Dose: 3 ml Documented By: DAR Sodium Chloride (0.9 % Sodium Chloride Flush 3 Ml Syringe) 3 ml IVFLUSH [facility] Last Admin: 02/05/25 08:11 Dose: Not Given Documented By: DAR Non-Admin Reason: Duplicate Order Tramadol HCl (Tramadol Hcl 50 Mg Tablet) 50 mg PO BEDTIME [facility] Last Admin: 02/04/25 21:20 Dose: 50 mg Documented By: ALICIA Trazodone HCl (Trazodone Hcl 100 Mg Tablet) 100 mg PO BEDTIME PRN PRN Reason: Sleep Labs 02/04/25 05:43 02/04/25 05:43 Labs: Laboratory Results - last 24 hr 02/04/25 02/04/25 02/04/25 11:20 15:19 21:03 POC Glucose 258 H 278 H 200 H 02/05/25 07:58 POC Glucose 154 H Assessment and Plan (1) Type 2 diabetes mellitus: Status: Acute Plan 59-year-old male with past medical history osteoarthritis, GERD, insulin-dependent diabetes type 2, right elbow replacement, syncope, orthostasis, severe depression, bipolar disorder, schizoaffective disorder, urinary incontinence, penile pump for erectile dysfunction, degenerative spine disease and cervical spine surgery, right hand trauma, essential tremor, history of alcohol abuse, history of cocaine abuse, history of tobacco abuse and patient is a Jehovah Witness and is against blood transfusions admitted for syncope/ orthostasis, R ankle injury currently splinted, hyperkalemia, hyperglycemia, depression and no current access to psychiatric care due to recent move. Syncope/Orthostasis, acute on chronic ECHO with EF of 55-60% and no significant valvular abnormalities carotid dopplers showing 0-49% stenosis of the bilateral internal carotid arteries TEDS ordered orthostatics QShift X48 hours Cardiology following>rec midodrine 2.5 mg before breakfast and lunch. , may use hydralazine for rebound hypertension Physical therapy consultation Hyperkalemia. Resolved s/p Lokelma R malleolus/distal fibula fracture Orthopedics consulted> no acute intervention indicated, follow up with Orthopedic surgery outpatient, nonweightbearing on right lower extremity, foot elevation with at least 1-2 pillows as much as possible pain well controlled Hyperglycemia/ IDDM II AIC 8.1 Sliding scale, Diabetic diet Depression/schizoaffective disorder/ Bipolar Seroquel at bedtime Cymbalta and Depakote Essential tremor Chronic with no report of hx of tardive dyskinesia, EPS or parkinson's or parkinsonism like symptoms GERD Omeperazole Jehova Witness no blood transfusions DVT prophylaxis: lovenox Full code Quality Stroke Does the patient have a stroke diagnosis?: No Reason for No Anti-thrombotic by Day Two: N/A - Med Ordered VTE Prior VTE?: No VTE Risk Level:: Medical - moderate - high VTE Device Contraindication: N/A - Device Ordered VTE Drug Contraindication: N/A - Med Ordered
[2025-02-05 11:15] LABS: Glucose, Whole Blood 274 mg/dL (60-115)
--- NOTE | 2025-02-05 12:51 | MHC.CM.PN ---
Addendum entered by Emily Santa 02/05/25 15:50: [place] is reviewing the EMR. Original Note: Patient and his sister would like to go to the same [facility]. Information has been sent to [facility]. The PT eval has been ordered, but is still pending. DP STR via BLS.
[2025-02-05 15:34] LABS: Glucose, Whole Blood 294 mg/dL (60-115)
--- NOTE | 2025-02-05 15:51 | P.DS_ITS ---
DS: Providers Provider Date of admission: 02/03/25 18:04 Primary care physician: None Physician Consults: 02/03/25 18:57 Consult to Cardiology Routine Consulting Provider: [facility] Reason for consultation: syncope, orthostasis Has provider been notified: No 02/03/25 19:49 Consult to Orthopedics Routine Consulting Provider: [facility] Reason for consultation: R ankle injury, malleolus and distal fibular fracture Has provider been notified: No DS: Diagnosis Discharge Diagnosis (1) Type 2 diabetes mellitus: Status: Acute DS: Summary Hospital Course Hospital Course: History and physical as per admitting provider. Patient is a 59-year-old male with past medical history osteoarthritis, GERD, insulin- dependent diabetes type 2, right elbow replacement, syncope, orthostasis, severe depression, bipolar disorder, schizoaffective disorder, urinary incontinence, penile pump for erectile dysfunction, degenerative spine disease and cervical spine surgery,l right hand trauma, essential tremor, history of alcohol abuse, history of cocaine abuse, history of tobacco abuse and patient is a Jehovah Witness and is against blood transfusions presents to the emergency department with complaint of a syncopal episode unwitnessed. Patient states the incident occurred while he was in the kitchen walking to his sister's bedroom and patient was found down in front of his sister's bedroom door. Patient feels he was out for approximately a few sec. Patient denies a hit to the head. Patient did report pain in the right lower extremity and patient was not able to bear weight. Patient was not diaphoretic but is not sure if his blood sugar was low at the time. Patient states his appetite has been poor but denies any weight loss. This racebook writer has not been able to contact pt's sister to review this occurrence or review pt's medication status and hx. Head CT negative for any acute findings. Pt found to have Mildly displaced oblique fracture of t he lateral malleolus of the distal fibula with overlying soft tissue swelling. Pt splinted in ED. Pain is well controlled. Per ED note, pt states he has fractured the right ankle in the past. Incidentally D-dimer was also elevated and CTA completed which was negative for PE. Noted was cholelithiasis and early lung fibrosis. Pt currently on RA. Potassium also elevated, 5.5 to 5.8 and pt received lokelma in the ED. Renal fx slightly decreaed but rebounded with fluids. UA negative for ketones, protein.Patient reports ongoing issues with dizziness, orthostasis and syncopal episodes over the last year. Patient was started on medication to help with this (fludrocortisone)but patient continues to have episodes. Patient moved from [place] with his sister back to [place] 2 months ago as he was about to become homeless. The relative they were living in [place] with sold their home and they had no where to go. Patient has not had any psychiatric or primary care since moving to [place]. Patient has been feeling more depressed and has not been managing his diabetes using insulin or checking his blood sugars. In addition, patient has had no psychiatric medications as he does not currently have a provider in this area. Pt has his first PCP appt in August 2025. Pt states he has been feeling suicidal lately but has no plan. Pt denies having SI, HI at this time. Pt reports he feels safe and is very close to his sister and safe at home. Pt being admitted for syncope, R ankle injury, hyperkalemia, hyperglycemia and noted psychiatric hx off medications due to lack of access to care feeling depressed. Syncope/Orthostasis, acute on chronic . ECHO with EF of 55-60% and no significant valvular abnormalities. carotid dopplers showing 0-49% stenosis of the bilateral internal carotid arteries. TEDS ordered . Cardiology following>rec midodrine 2.5 mg before breakfast and lunch. may use hydralazine for rebound hypertension. Physical therapy rec STR. Hyperkalemia. Resolved . s/p Lokelma R malleolus/distal fibula fracture . Orthopedics consulted> no acute intervention indicated, follow up with Orthopedic surgery outpatient, nonweightbearing on right lower extremity, foot elevation with at least 1-2 pillows as much as possible. pain well controlled Hyperglycemia/ IDDM II . AIC 8.1. continue home medications Depression/schizoaffective disorder/ Bipolar . Seroquel at bedtime. Cymbalta and Depakote Essential tremor Chronic with no report of hx of tardive dyskinesia, EPS or parkinson's or parkinsonism like symptoms GERD. Omeperazole Jehova Witness .no blood transfusions Physical Exam Vital Signs: Vital Signs: Last Vital Signs Temp 97.9 F 02/05/25 15:26 Pulse 81 02/05/25 15:26 Resp 18 02/05/25 15:26 BP 142/77 H 02/05/25 15:26 Pulse Ox 100 02/05/25 15:26 O2 Del Method Room Air 02/05/25 15:26 BMI result Body Mass Index 19.5 DS: Data Data Completed and Pending Labs on day of discharge: Laboratory Results - last 24 hr 02/04/25 02/04/25 02/05/25 15:19 21:03 07:58 POC Glucose 278 H 200 H 154 H 02/05/25 02/05/25 11:09 15:29 POC Glucose 274 H 294 H Discharge Plan Discharge Discharge Diagnosis: Syncope Orthostasis R malleolus/distal fibula fracture Referrals: Physician,None [Primary Care Provider] - 1 Week Discharge Medications: New midodrine 2.5 mg Tablet 2.5 mg PO BID Qty: 60 0RF Rx Instructions: before breakfast and before lunch Continued omeprazole 40 mg capsule,delayed release(DR/EC) 40 mg PO DAILY@0630 gabapentin 300 mg capsule 600 mg PO BID insulin lispro 100 unit/mL insulin pen 0 sliding scale dose subcut TIDAC rosuvastatin 40 mg tablet 1 tab PO BEDTIME duloxetine 30 mg capsule,delayed release(DR/EC) 30 mg PO DAILY insulin glargine [Lantus Solostar U-100 Insulin] 100 unit/mL (3 mL) insulin pen 25 unit subcut BEDTIME trazodone 100 mg tablet 1 tab PO BEDTIME PRN (Reason: Sleep) quetiapine 100 mg Tablet 100 mg PO BEDTIME Qty: 30 0RF primidone 50 mg tablet 50 mg PO BEDTIME divalproex 250 mg tablet,delayed release (DR/EC) 500 mg PO BID tramadol 50 mg tablet 50 mg PO BEDTIME metoprolol succinate 25 mg tablet extended release 24 hr 50 mg PO BEDTIME fluticasone propionate 50 mcg/actuation spray,suspension 1 spray intranasal BID PRN (Reason: sinus pressure) diclofenac sodium 25 mg tablet,delayed release (DR/EC) 25 mg PO BID PRN (Reason: Pain) metformin 850 mg tablet 850 mg PO BIDWM ibuprofen [Advil] 200 mg Tablet 200 mg PO Q6H PRN (Reason: Pain) aspirin 81 mg tablet,delayed release (DR/EC) 81 mg PO DAILY Trulicity 1.5 mg/0.5 mL pen injector 1.5 mg subcut TU duloxetine 60 mg Capsule, Delayed Rel Sprinkle 60 mg PO DAILY Rx Instructions: take 30mg with 60mg acetaminophen 650 mg tablet extended release 650 mg PO TID PRN (Reason: Pain) Diet: Advance to usual diet Activity on Discharge: As tolerated Print Language: [place] Health Concerns: Syncope Orthostasis R malleolus/distal fibula fracture Plan of Treatment: Follow up with primary care provider as needed Take all medications as prescribed Assessment: See discharge summary
[2025-02-05] MEDS: Enoxaparin Sodium 40 MG/0.4 ML SYRINGE SUBCUT (17:39)
[2025-02-05 20:20] LABS: Glucose, Whole Blood 201 mg/dL (60-115)
[2025-02-05] MEDS: traMADoL HCL 50 MG TABLET PO (21:00)
[2025-02-05] MEDS: Metoprolol Succinate ER 50 MG TAB.ER.24H PO (21:01)
[2025-02-05] MEDS: Primidone 50 MG TABLET PO (21:01)
[2025-02-05] MEDS: Atorvastatin Calcium 80 MG TABLET PO (21:01)
[2025-02-05] MEDS: Sennosides 8.6 MG TABLET 17.2 MG PO (21:01)
[2025-02-05] MEDS: QUEtiapine Fumarate 100 MG TABLET PO (21:01)
[2025-02-05] MEDS: Insulin Glargine,Hum.rec.anlog 100 UNIT/ML 10 ML VIAL 10 UNIT SUBCUT (21:03)
[2025-02-06] VITALS (7 sets, daily range): BP systolic 101–124; BP diastolic 63–77; PULSE 70–100; RESP 16–18; TEMP 36–37.2; O2SAT 96–98; BMI 24.1
[2025-02-06] MEDS: Omeprazole 40 MG CAPSULE.DR PO (06:02)
[2025-02-06] MEDS: oxyCODONE HCl Immed Release 5 MG TABLET PO ×3 (06:04→16:05)
[2025-02-06 07:35] LABS: Glucose, Whole Blood 158 mg/dL (60-115)
[2025-02-06] MEDS: 0.9 % Sodium Chloride Flush 3 ML SYRINGE IVFLUSH ×3 (08:44→20:55)
[2025-02-06] MEDS: Aspirin Enteric Coated 81 MG TABLET.DR PO (08:45)
[2025-02-06] MEDS: DULoxetine HCl 60 MG CAPSULE.DR PO (08:45)
[2025-02-06] MEDS: Gabapentin 300 MG CAPSULE 600 MG PO ×2 (08:45→19:28)
[2025-02-06] MEDS: DULoxetine HCl 30 MG CAPSULE.DR PO (08:45)
[2025-02-06] MEDS: Divalproex Sodium 500 MG TABLET.DR PO ×2 (08:46→19:28)
[2025-02-06] MEDS: Insulin Lispro 100 UNIT/ML 3 ML VIAL SUBCUT ×4 (08:46→20:52)
[2025-02-06] MEDS: Midodrine HCl 2.5 MG TABLET PO ×2 (08:46→19:28)
[2025-02-06] MEDS: Acetaminophen 325 MG TABLET 650 MG PO (08:47)
[2025-02-06 11:13] LABS: Glucose, Whole Blood 269 mg/dL (60-115)
--- NOTE | 2025-02-06 11:26 | MHC.CM.PN ---
[facility] has requested a psych eval before they can consider offering a bed. The PA has been notified. A clinical update has been sent to the facility. DP STR via BLS. Patients sister has accepted a bed offer from the facility.
--- NOTE | 2025-02-06 14:34 | MHC.CARE ---
RAD Team completed CC referral for this pt via email
[2025-02-06 15:23] LABS: Glucose, Whole Blood 160 mg/dL (60-115)
--- NOTE | 2025-02-06 15:46 | PM.PSYCN ---
History of Present Illness Date of Service: 02/06/2025 Chief Complaint: Syncope Discussed with referring provider: Yes Sources of Information: patient interviewed, chart reviewed and crisis/core team assessment reviewed HPI Narrative: Mr. Manriquez is a 59 year-old male with hx of mood disorder who was admitted for R ankle fracture. Pt reported he recently moved back from [place] with his sister and has not been able to continue medications for depression. He reported feeling more depressed in the past 2 weeks. He denies SI/HI. Pt is known to psychiatric service through previous admission when pt presented increasingly more confused and it appears that at baseline he has memory impairments. No formal dx of dementia. He also has movement disorder- resting and action tremor. It does not appear essential tremors but parkinsonian tremor. Psychiatry asked to assess pt for depression. He was recently restarted on cymbalta 90mg po daily, seroquel at bedtime and depakote. Pt seen in his room. He presents as calm and friendly. He reports he has been feeling more depressed for the past 2 weeks. This in the context of recent ankle fracture and moving back from [place] to [facility]. He reports his sister is main caregiver but she is also going through medical issues. He denies SI/HI. He reports he is sleeping well. He does not know what medications he has been in the past. He reports his sister assists with this. No signs of psychosis or delusions at this time. [facility] Medical History Cocaine abuse History of tobacco abuse History of alcohol abuse Penile lump Urinary incontinence GERD (gastroesophageal reflux disease) Osteoarthritis Injury of right hand Syncope Tremor of both hands Chronic low back pain Type 2 diabetes mellitus Depression Bipolar 1 disorder Schizophrenia Surgical History H/O cervical spine surgery Elbow joint replacement status Diagnostics Vital Signs (24Hr): Vital Signs - 24 hr 02/05/25 20:00 02/05/25 23:35 02/05/25 23:36 Temperature 97.1 F Pulse Rate 79 95 83 Respiratory Rate 16 Blood Pressure 148/90 H 92/58 L 106/73 Pulse Oximetry 98 Oxygen Delivery Method Room Air 02/05/25 23:37 02/05/25 23:38 02/06/25 03:21 Temperature 97 F 98.3 F Pulse Rate 79 79 77 Respiratory Rate 16 16 Blood Pressure 154/90 H 154/90 H 116/76 Pulse Oximetry 100 98 Oxygen Delivery Method Room Air Room Air 02/06/25 07:40 02/06/25 11:16 02/06/25 14:18 Temperature 98.9 F 97.9 F Pulse Rate 77 70 100 Respiratory Rate 18 18 Blood Pressure 101/63 124/74 Pulse Oximetry 97 97 Oxygen Delivery Method Room Air Room Air 02/06/25 15:30 Temperature 98.3 F Pulse Rate 84 Respiratory Rate 18 Blood Pressure 117/74 Pulse Oximetry 97 Oxygen Delivery Method Room Air BMI result Body Mass Index 24.1 Labs 02/04/25 05:43 02/04/25 05:43 Labs: Laboratory Results - last 48 hr 02/04/25 02/04/25 02/05/25 15:19 21:03 07:58 POC Glucose 278 H 200 H 154 H 02/05/25 02/05/25 02/05/25 11:09 15:29 20:07 POC Glucose 274 H 294 H 201 H 02/06/25 02/06/25 02/06/25 07:27 11:09 15:19 POC Glucose 158 H 269 H 160 H Imaging Radiology Impressions: ITS Impressions Carotid Doppler Study 02/04/25 08:50 IMPRESSION: Findings consistent with 0-49% stenosis of the bilateral internal carotid arteries. Electronically signed by: Rodney Pendleton MD 02/04/2025 10:20 AM EDT RP Mental Status Exam Mental Status Exam Narrative: Appearance: wearing hospital gown, fair hygine, in NAD Behavior: cooperative, friendly Psychomotor: resting bilat tremor, also noted action tremors, mild cogwheel Speech: mostly clear, normal rate/rhythm/volume, spontaneous TP: mostly linear but limited but memory gaps TC: feeling better but concern about process to get providers back here in [place] Mood: better Affect: somewhat constricted. SI: denies HI: denies VH/AH: none Delusions: none Insight/judgment: poor x 2. Memory/cog: alert, oriented to place, situation. not assessed for month or year. nor additional formal testing. but would recommend OP referral to assess memory/cog. Medications Medications Current Medications Acetaminophen (Acetaminophen 325 Mg Tablet) 650 mg PO Q6H PRN PRN Reason: Pain, Mild 1-3,fever,headache Last Admin: 02/06/25 08:47 Dose: 650 mg Aspirin (Aspirin Enteric Coated 81 Mg Tablet.) 81 mg PO DAILY [facility] Last Admin: 02/06/25 08:45 Dose: 81 mg Atorvastatin Calcium (Atorvastatin Calcium 80 Mg Tablet) 80 mg PO BEDTIME [facility] Last Admin: 02/05/25 21:01 Dose: 80 mg Calcium Carbonate (Calcium Carbonate 750 Mg Tab.Chew) 750 mg PO Q4H PRN PRN Reason: Heartburn Dextrose (Dextrose 50 % 25 Gm/50 Ml Syringe) 25 gm IVPUSH Q15M PRN; Protocol PRN Reason: per Hypoglycemia Standing Ord. Divalproex Sodium (Divalproex Sodium 500 Mg Tablet.) 500 mg PO BID [facility] Last Admin: 02/06/25 08:46 Dose: 500 mg Duloxetine HCl (Duloxetine Hcl 30 Mg Capsule.) 30 mg PO DAILY [facility] Last Admin: 02/06/25 08:45 Dose: 30 mg Duloxetine HCl (Duloxetine Hcl 60 Mg Capsule.) 60 mg PO DAILY [facility] Last Admin: 02/06/25 08:45 Dose: 60 mg Enoxaparin Sodium (Enoxaparin Sodium 40 Mg/0.4 Ml Syringe) 40 mg SUBCUT Q24H [facility] Last Admin: 02/05/25 17:39 Dose: 40 mg Gabapentin (Gabapentin 300 Mg Capsule) 600 mg PO BID [facility] Last Admin: 02/06/25 08:45 Dose: 600 mg Glucose (Glucose Gel 15 Gm Gel..Gram.) 15 gm PO Q15M PRN; Protocol PRN Reason: per Hypoglycemia Standing Ord. Hydromorphone HCl (Hydromorphone Hcl 0.5 Mg/0.5 Ml Syringe) 0.5 mg IVPUSH Q4H PRN; Protocol PRN Reason: Pain, Severe (Pain Scale 7-10) Insulin Glargine (Insulin Glargine,Hum.Rec.Anlog 100 Unit/Ml 10 Ml Vial) 10 unit SUBCUT BEDTIME [facility] Last Admin: 02/05/25 21:03 Dose: 10 unit Insulin Human Lispro (Insulin Lispro 100 Unit/Ml 3 Ml Vial) 0 unit SUBCUT QIDACHS [facility]; Protocol Last Admin: 02/06/25 11:52 Dose: 6 unit Magnesium Hydroxide (Milk Of Magnesia 30 Ml Oral.Susp) 30 ml PO DAILY PRN PRN Reason: Constipation Melatonin (Melatonin 3 Mg Tablet) 6 mg PO BEDTIME PRN PRN Reason: Insomnia Metoprolol Succinate (Metoprolol Succinate Er 50 Mg Tab.Er.24h) 50 mg PO BEDTIME [facility]; Protocol Last Admin: 02/05/25 21:01 Dose: 50 mg Midodrine (Midodrine Hcl 2.5 Mg Tablet) 2.5 mg PO BID [facility] Last Admin: 02/06/25 08:46 Dose: 2.5 mg Omeprazole (Omeprazole 40 Mg Capsule.Dr) 40 mg PO DAILY@0630 [facility] Last Admin: 02/06/25 06:02 Dose: 40 mg Ondansetron HCl (Ondansetron Hcl 4 Mg/2 Ml Vial) 4 mg IVPUSH Q8H PRN PRN Reason: Nausea and Vomiting Oxycodone HCl (Oxycodone Hcl Immed Release 5 Mg Tablet) 5 mg PO Q4H PRN PRN Reason: Pain, Moderate(Pain Scale 4-6) Last Admin: 02/06/25 11:52 Dose: 5 mg Primidone (Primidone 50 Mg Tablet) 50 mg PO BEDTIME [facility] Last Admin: 02/05/25 21:01 Dose: 50 mg Quetiapine Fumarate (Quetiapine Fumarate 100 Mg Tablet) 100 mg PO BEDTIME [facility] Last Admin: 02/05/25 21:01 Dose: 100 mg Senna (Sennosides 8.6 Mg Tablet) 17.2 mg PO BEDTIME [facility] Last Admin: 02/05/25 21:01 Dose: 17.2 mg Sodium Chloride (0.9 % Sodium Chloride Flush 3 Ml Syringe) 3 ml IVFLUSH [facility] Last Admin: 02/06/25 08:44 Dose: 3 ml Sodium Chloride (0.9 % Sodium Chloride Flush 3 Ml Syringe) [facility] Last Admin: 02/06/25 08:38 Dose: Not Given Tramadol HCl (Tramadol Hcl 50 Mg Tablet) 50 mg PO BEDTIME [facility] Last Admin: 02/05/25 21:00 Dose: 50 mg Trazodone HCl (Trazodone Hcl 100 Mg Tablet) 100 mg PO BEDTIME PRN PRN Reason: Sleep Allergies Allergies Allergy/AdvReac Type Severity Reaction Status Date / Time No Known Allergies Allergy Mild NONE Verified 02/03/25 13:48 Assessment & Plan Assessment & Plan (1) Mood disorder: Status: Acute Code(s): F39 - Unspecified mood [affective] disorder Plan Mr. Manriquez is a 59 year-old male with hx of mood disorder. He was admitted due to R ankle fracture. He reported increase depression for the past 2 weeks. No SI/HI. He reported he has not been on medication for depression/mood. He was since restarted on cymbalta, depakote, seroquel. PLAN 1. no need for inpt psych level of care 2. continue cymbalta, depakote, seroquel 3. tremors seem parkinsonism. not essential tremors. Total time managing care of this patient today ____ minutes.
[2025-02-06] MEDS: Enoxaparin Sodium 40 MG/0.4 ML SYRINGE SUBCUT (18:30)
--- NOTE | 2025-02-06 19:09 | P.PNIM_ITS ---
Subjective Subjective Date of Service: 02/06/25 Interval History: Pain well-controlled on current regimen Denies numbness or tingling in extremities Has been experiencing increased depression with the past few weeks after moving from [place] to [place] Denies SI No lightheadedness, dizziness Denies SOB or difficulty breathing, no chest pain/pressure, palpitations Review of Systems Review of Systems: Yes all other systems are reviewed and are negative Physical Exam 2 Vital Signs: Vital Signs: Last Vital Signs Temp 98.3 F 02/06/25 15:30 Pulse 84 02/06/25 15:30 Resp 18 02/06/25 15:30 BP 117/74 02/06/25 15:30 Pulse Ox 97 02/06/25 15:30 O2 Del Method Room Air 02/06/25 15:30 BMI result Body Mass Index 24.1 General: AOx3, no acute distress Resp: CTA bilaterally CVS: S1, S2, RRR GI: +BS, NT, no distention Skin: Warm, dry Neuro: Cranial nerves II-XII grossly intact bilaterally. Motor grossly intact bilaterally Extremities: No edema. Right foot and ankle in brace Psych: Appropriate affect Objective Data Active Medications Acetaminophen (Acetaminophen 325 Mg Tablet) 650 mg PO Q6H PRN PRN Reason: Pain, Mild 1-3,fever,headache Last Admin: 02/06/25 08:47 Dose: 650 mg Documented By: DAR Aspirin (Aspirin Enteric Coated 81 Mg Tablet.) 81 mg PO DAILY [facility] Last Admin: 02/06/25 08:45 Dose: 81 mg Documented By: DAR Atorvastatin Calcium (Atorvastatin Calcium 80 Mg Tablet) 80 mg PO BEDTIME [facility] Last Admin: 02/05/25 21:01 Dose: 80 mg Documented By: TRISHA Calcium Carbonate (Calcium Carbonate 750 Mg Tab.Chew) 750 mg PO Q4H PRN PRN Reason: Heartburn Dextrose (Dextrose 50 % 25 Gm/50 Ml Syringe) 25 gm IVPUSH Q15M PRN; Protocol PRN Reason: per Hypoglycemia Standing Ord. Divalproex Sodium (Divalproex Sodium 500 Mg Tablet.) 500 mg PO BID [facility] Last Admin: 02/06/25 08:46 Dose: 500 mg Documented By: DAR Duloxetine HCl (Duloxetine Hcl 30 Mg Capsule.) 30 mg PO DAILY [facility] Last Admin: 02/06/25 08:45 Dose: 30 mg Documented By: DAR Duloxetine HCl (Duloxetine Hcl 60 Mg Capsule.) 60 mg PO DAILY [facility] Last Admin: 02/06/25 08:45 Dose: 60 mg Documented By: DAR Enoxaparin Sodium (Enoxaparin Sodium 40 Mg/0.4 Ml Syringe) 40 mg SUBCUT Q24H [facility] Last Admin: 02/06/25 18:30 Dose: 40 mg Documented By: DAR Gabapentin (Gabapentin 300 Mg Capsule) 600 mg PO BID [facility] Last Admin: 02/06/25 08:45 Dose: 600 mg Documented By: DAR Glucose (Glucose Gel 15 Gm Gel..Gram.) 15 gm PO Q15M PRN; Protocol PRN Reason: per Hypoglycemia Standing Ord. Hydromorphone HCl (Hydromorphone Hcl 0.5 Mg/0.5 Ml Syringe) 0.5 mg IVPUSH Q4H PRN; Protocol PRN Reason: Pain, Severe (Pain Scale 7-10) Insulin Glargine (Insulin Glargine,Hum.Rec.Anlog 100 Unit/Ml 10 Ml Vial) 10 unit SUBCUT BEDTIME [facility] Last Admin: 02/05/25 21:03 Dose: 10 unit Documented By: TRISHA Insulin Human Lispro (Insulin Lispro 100 Unit/Ml 3 Ml Vial) 0 unit SUBCUT QIDACHS [facility]; Protocol Last Admin: 02/06/25 16:05 Dose: 2 unit Documented By: DAR Magnesium Hydroxide (Milk Of Magnesia 30 Ml Oral.Susp) 30 ml PO DAILY PRN PRN Reason: Constipation Melatonin (Melatonin 3 Mg Tablet) 6 mg PO BEDTIME PRN PRN Reason: Insomnia Metoprolol Succinate (Metoprolol Succinate Er 50 Mg Tab.Er.24h) 50 mg PO BEDTIME [facility]; Protocol Last Admin: 02/05/25 21:01 Dose: 50 mg Documented By: TRISHA Midodrine (Midodrine Hcl 2.5 Mg Tablet) 2.5 mg PO BID [facility] Last Admin: 02/06/25 08:46 Dose: 2.5 mg Documented By: DAR Omeprazole (Omeprazole 40 Mg Capsule.) 40 mg PO DAILY@0630 [facility] Last Admin: 02/06/25 06:02 Dose: 40 mg Documented By: TRISHA Ondansetron HCl (Ondansetron Hcl 4 Mg/2 Ml Vial) 4 mg IVPUSH Q8H PRN PRN Reason: Nausea and Vomiting Oxycodone HCl (Oxycodone Hcl Immed Release 5 Mg Tablet) 5 mg PO Q4H PRN PRN Reason: Pain, Moderate(Pain Scale 4-6) Last Admin: 02/06/25 16:05 Dose: 5 mg Documented By: DAR Primidone (Primidone 50 Mg Tablet) 50 mg PO BEDTIME [facility] Last Admin: 02/05/25 21:01 Dose: 50 mg Documented By: TRISHA Quetiapine Fumarate (Quetiapine Fumarate 100 Mg Tablet) 100 mg PO BEDTIME [facility] Last Admin: 02/05/25 21:01 Dose: 100 mg Documented By: TRISHA Senna (Sennosides 8.6 Mg Tablet) 17.2 mg PO BEDTIME [facility] Last Admin: 02/05/25 21:01 Dose: 17.2 mg Documented By: TRISHA Sodium Chloride (0.9 % Sodium Chloride Flush 3 Ml Syringe) 3 ml IVFLUSH [facility] Last Admin: 02/06/25 16:05 Dose: 3 ml Documented By: DAR Sodium Chloride (0.9 % Sodium Chloride Flush 3 Ml Syringe) 3 ml IVFLUSH [facility] Last Admin: 02/06/25 16:05 Dose: Not Given Documented By: DAR Non-Admin Reason: Duplicate Order Tramadol HCl (Tramadol Hcl 50 Mg Tablet) 50 mg PO BEDTIME [facility] Last Admin: 02/05/25 21:00 Dose: 50 mg Documented By: TRISHA Trazodone HCl (Trazodone Hcl 100 Mg Tablet) 100 mg PO BEDTIME PRN PRN Reason: Sleep Labs 02/04/25 05:43 02/04/25 05:43 Labs: Laboratory Results - last 24 hr 02/05/25 02/06/25 02/06/25 20:07 07:27 11:09 POC Glucose 201 H 158 H 269 H 02/06/25 15:19 POC Glucose 160 H Assessment and Plan (1) Fracture of distal end of fibula: Status: Acute Plan 59-year-old male with past medical history osteoarthritis, GERD, insulin-dependent diabetes type 2, right elbow replacement, syncope, orthostasis, severe depression, bipolar disorder, schizoaffective disorder, urinary incontinence, penile pump for erectile dysfunction, degenerative spine disease and cervical spine surgery, right hand trauma, essential tremor, history of alcohol abuse, history of cocaine abuse, history of tobacco abuse and patient is a Jehovah Witness and is against blood transfusions admitted for syncope/ orthostasis, R ankle injury currently splinted, hyperkalemia, hyperglycemia, depression and no current access to psychiatric care due to recent move. Syncope/Orthostasis, acute on chronic ECHO with EF of 55-60% and no significant valvular abnormalities carotid dopplers showing 0-49% stenosis of the bilateral internal carotid arteries TEDS ordered Cardiology following>rec midodrine 2.5 mg before breakfast and lunch. may use hydralazine for rebound hypertension STR at dc Hyperkalemia. Resolved s/p Lokelma R malleolus/distal fibula fracture Orthopedics consulted> no acute intervention indicated, follow up with Orthopedic surgery outpatient, nonweightbearing on right lower extremity, foot elevation with at least 1-2 pillows as much as possible pain well controlled Hyperglycemia/ IDDM II AIC 8.1 Sliding scale, Diabetic diet Depression/schizoaffective disorder/ Bipolar Pt apparently voiced passive SI in the ED Currently reports being increasingly depressed, but denies SI Seroquel at bedtime Cymbalta and Depakote Care team/psychiatry evaluation Pt will need psychiatric clearance prior to acceptance at [facility] Essential tremor Chronic with no report of hx of tardive dyskinesia, EPS or parkinson's or parkinsonism like symptoms GERD Omeperazole Jehova Witness no blood transfusions DVT prophylaxis: lovenox Full code Pt will require additional hospital stay while awaiting placement to ST are that will likely occur tomorrow Quality Stroke Does the patient have a stroke diagnosis?: No Reason for No Anti-thrombotic by Day Two: N/A - Med Ordered VTE Prior VTE?: No VTE Risk Level:: Medical - moderate - high VTE Device Contraindication: N/A - Device Ordered VTE Drug Contraindication: N/A - Med Ordered
[2025-02-06] MEDS: Atorvastatin Calcium 80 MG TABLET PO (19:27)
[2025-02-06] MEDS: QUEtiapine Fumarate 100 MG TABLET PO (19:28)
[2025-02-06] MEDS: Primidone 50 MG TABLET PO (19:28)
[2025-02-06] MEDS: Metoprolol Succinate ER 50 MG TAB.ER.24H PO (19:28)
[2025-02-06 20:02] LABS: Glucose, Whole Blood 236 mg/dL (60-115)
[2025-02-06] MEDS: Insulin Glargine,Hum.rec.anlog 100 UNIT/ML 10 ML VIAL 10 UNIT SUBCUT (20:52)
[2025-02-06] MEDS: traMADoL HCL 50 MG TABLET PO (20:53)
[2025-02-07 03:36] VITALS: BP 112/74; PULSE 75; RESP 20; TEMP 37.1; O2SAT 98
[2025-02-07] MEDS: oxyCODONE HCl Immed Release 5 MG TABLET PO (05:12)
[2025-02-07] MEDS: Omeprazole 40 MG CAPSULE.DR PO (05:13)
[2025-02-07 06:00] VITALS: BMI 24.4
[2025-02-07 07:20] LABS: Glucose, Whole Blood 161 mg/dL (60-115)
[2025-02-07 07:23] VITALS: BP 110/74; PULSE 79; RESP 14; TEMP 37.1; O2SAT 100
[2025-02-07] MEDS: DULoxetine HCl 60 MG CAPSULE.DR PO (07:52)
[2025-02-07] MEDS: Divalproex Sodium 500 MG TABLET.DR PO ×2 (07:52→19:29)
[2025-02-07] MEDS: Midodrine HCl 2.5 MG TABLET PO ×2 (07:52→11:47)
[2025-02-07] MEDS: Gabapentin 300 MG CAPSULE 600 MG PO ×2 (07:52→19:29)
[2025-02-07] MEDS: Aspirin Enteric Coated 81 MG TABLET.DR PO (07:52)
[2025-02-07] MEDS: DULoxetine HCl 30 MG CAPSULE.DR PO (07:52)
[2025-02-07] MEDS: Insulin Lispro 100 UNIT/ML 3 ML VIAL SUBCUT ×4 (07:53→21:24)
[2025-02-07] MEDS: 0.9 % Sodium Chloride Flush 3 ML SYRINGE IVFLUSH ×3 (07:59→19:34)
--- NOTE | 2025-02-07 08:23 | P.CNNE_ITS ---
History of Present Illness Data of Consult Service Date: 02/07/25 Primary Care Provider: None Physician HPI Reason for consult: Tremor 59 years old man with complicated past medical and psychiatric history who I was asked to see for possibility of Parkinson's disease. Patient stated that he suffered from tremor since he was about 29 years old. Many family members suffered from similar tremor. He said that he was taking primidone but that was not helping. He was taking a dose at night. He probably had fallen recently. Review of Systems 2 Review of Systems: Generalized tremor. [facility] Past Medical History Medical History Cocaine abuse History of tobacco abuse History of alcohol abuse Penile lump Urinary incontinence GERD (gastroesophageal reflux disease) Osteoarthritis Injury of right hand Syncope Tremor of both hands Chronic low back pain Type 2 diabetes mellitus Depression Bipolar 1 disorder Schizophrenia Family History Family History Mother HTN (hypertension) Diabetes Alzheimer disease Father Diabetes HTN (hypertension) Schizophrenia PVD (peripheral vascular disease) CAD (coronary artery disease) Bipolar 1 disorder Surgical History Surgical History H/O cervical spine surgery Elbow joint replacement status Social History Social History Household Members: Family Household Members Other:: sister Housing: Apartment Do you presently have visiting nurse or other home services: Yes Patient Tobacco Use Status: Former Tobacco user Advance Directives Date on File: 09/04/23 service: No Current occupational status: unemployed Travel History Ebola Risk: Travel/Contact With Anyone From Affected Area/s: No Has Patient Experienced Ebola Symptoms: No Meds Allergies Allergy/AdvReac Type Severity Reaction Status Date / Time No Known Allergies Allergy Mild NONE Verified 02/03/25 13:48 Active Medications: Current Medications Acetaminophen (Acetaminophen 325 Mg Tablet) 650 mg PO Q6H PRN PRN Reason: Pain, Mild 1-3,fever,headache Last Admin: 02/06/25 08:47 Dose: 650 mg Aspirin (Aspirin Enteric Coated 81 Mg Tablet.) 81 mg PO DAILY [facility] Last Admin: 02/07/25 07:52 Dose: 81 mg Atorvastatin Calcium (Atorvastatin Calcium 80 Mg Tablet) 80 mg PO BEDTIME [facility] Last Admin: 02/06/25 19:27 Dose: 80 mg Calcium Carbonate (Calcium Carbonate 750 Mg Tab.Chew) 750 mg PO Q4H PRN PRN Reason: Heartburn Dextrose (Dextrose 50 % 25 Gm/50 Ml Syringe) 25 gm IVPUSH Q15M PRN; Protocol PRN Reason: per Hypoglycemia Standing Ord. Divalproex Sodium (Divalproex Sodium 500 Mg Tablet.) 500 mg PO BID [facility] Last Admin: 02/07/25 07:52 Dose: 500 mg Duloxetine HCl (Duloxetine Hcl 30 Mg Capsule.) 30 mg PO DAILY [facility] Last Admin: 02/07/25 07:52 Dose: 30 mg Duloxetine HCl (Duloxetine Hcl 60 Mg Capsule.) 60 mg PO DAILY [facility] Last Admin: 02/07/25 07:52 Dose: 60 mg Enoxaparin Sodium (Enoxaparin Sodium 40 Mg/0.4 Ml Syringe) 40 mg SUBCUT Q24H [facility] Last Admin: 02/06/25 18:30 Dose: 40 mg Gabapentin (Gabapentin 300 Mg Capsule) 600 mg PO BID [facility] Last Admin: 02/07/25 07:52 Dose: 600 mg Glucose (Glucose Gel 15 Gm Gel..Gram.) 15 gm PO Q15M PRN; Protocol PRN Reason: per Hypoglycemia Standing Ord. Hydromorphone HCl (Hydromorphone Hcl 0.5 Mg/0.5 Ml Syringe) 0.5 mg IVPUSH Q4H PRN; Protocol PRN Reason: Pain, Severe (Pain Scale 7-10) Insulin Glargine (Insulin Glargine,Hum.Rec.Anlog 100 Unit/Ml 10 Ml Vial) 10 unit SUBCUT BEDTIME [facility] Last Admin: 02/06/25 20:52 Dose: 10 unit Insulin Human Lispro (Insulin Lispro 100 Unit/Ml 3 Ml Vial) 0 unit SUBCUT QIDACHS [facility]; Protocol Last Admin: 02/07/25 07:53 Dose: 2 unit Magnesium Hydroxide (Milk Of Magnesia 30 Ml Oral.Susp) 30 ml PO DAILY PRN PRN Reason: Constipation Melatonin (Melatonin 3 Mg Tablet) 6 mg PO BEDTIME PRN PRN Reason: Insomnia Metoprolol Succinate (Metoprolol Succinate Er 50 Mg Tab.Er.24h) 50 mg PO BEDTIME [facility]; Protocol Last Admin: 02/06/25 19:28 Dose: 50 mg Midodrine (Midodrine Hcl 2.5 Mg Tablet) 2.5 mg PO BID [facility] Last Admin: 02/07/25 07:52 Dose: 2.5 mg Omeprazole (Omeprazole 40 Mg Capsule.Dr) 40 mg PO DAILY@0630 [facility] Last Admin: 02/07/25 05:13 Dose: 40 mg Ondansetron HCl (Ondansetron Hcl 4 Mg/2 Ml Vial) 4 mg IVPUSH Q8H PRN PRN Reason: Nausea and Vomiting Oxycodone HCl (Oxycodone Hcl Immed Release 5 Mg Tablet) 5 mg PO Q4H PRN PRN Reason: Pain, Moderate(Pain Scale 4-6) Last Admin: 02/07/25 05:12 Dose: 5 mg Primidone (Primidone 50 Mg Tablet) 50 mg PO BEDTIME [facility] Last Admin: 02/06/25 19:28 Dose: 50 mg Quetiapine Fumarate (Quetiapine Fumarate 100 Mg Tablet) 100 mg PO BEDTIME [facility] Last Admin: 02/06/25 19:28 Dose: 100 mg Senna (Sennosides 8.6 Mg Tablet) 17.2 mg PO BEDTIME [facility] Last Admin: 02/06/25 20:45 Dose: Not Given Sodium Chloride (0.9 % Sodium Chloride Flush 3 Ml Syringe) [facility] Last Admin: 02/07/25 07:59 Dose: 3 ml Sodium Chloride (0.9 % Sodium Chloride Flush 3 Ml Syringe) [facility] Last Admin: 02/07/25 07:59 Dose: Not Given Tramadol HCl (Tramadol Hcl 50 Mg Tablet) 50 mg PO BEDTIME [facility] Last Admin: 02/06/25 20:53 Dose: 50 mg Trazodone HCl (Trazodone Hcl 100 Mg Tablet) 100 mg PO BEDTIME PRN PRN Reason: Sleep Home Medications ?Medication ?Instructions ?Recorded ?Confirmed ?Last Taken ?Type duloxetine 30 mg capsule,delayed 30 mg PO DAILY 06/23/22 02/04/25 09/04/23 History release gabapentin 300 mg capsule 600 mg PO BID 06/23/22 02/04/25 02/02/25 History insulin glargine 100 unit/mL (3 25 unit subcut BEDTIME 09/28/22 05/12/25 05/10/25 History mL) subcutaneous pen (Lantus Solostar U-100 Insulin) insulin lispro 100 unit/mL 0 sliding scale dose subcut TIDAC 06/23/22 02/04/25 02/02/25 History subcutaneous pen omeprazole 40 mg capsule,delayed 40 mg PO DAILY@0630 06/23/22 02/04/25 09/04/23 History release rosuvastatin 40 mg tablet 1 tab PO BEDTIME 06/23/22 02/04/25 09/04/23 History trazodone 100 mg tablet 1 tab PO BEDTIME PRN Sleep 06/23/22 02/04/25 09/04/23 History aspirin 81 mg tablet,delayed 81 mg PO DAILY 09/04/23 02/04/25 02/02/25 History release dulaglutide 1.5 mg/0.5 mL 1.5 mg subcut TU 09/04/23 02/04/25 Unknown History subcutaneous pen injector (Trulicity) acetaminophen 650 mg 650 mg PO TID PRN Pain 09/05/23 02/04/25 Unknown History tablet,extended release duloxetine 60 mg capsule,delayed 60 mg PO DAILY 09/05/23 02/04/25 09/04/23 History release sprinkle diclofenac sodium 25 mg 25 mg PO BID PRN Pain 02/04/25 02/04/25 Unknown History tablet,delayed release divalproex 250 mg tablet,delayed 500 mg PO BID 02/04/25 02/04/25 02/02/25 History release fluticasone propionate 50 1 spray intranasal BID PRN sinus 02/04/25 02/04/25 Unknown History mcg/actuation nasal pressure spray,suspension ibuprofen 200 mg tablet (Advil) 200 mg PO Q6H PRN Pain 02/04/25 02/04/25 Unknown History metformin 850 mg tablet 850 mg PO BIDWM 02/04/25 02/04/25 02/02/25 History metoprolol succinate 25 mg 50 mg PO BEDTIME 02/04/25 02/04/25 Unknown History tablet,extended release 24 hr primidone 50 mg tablet 50 mg PO BEDTIME tremors 02/04/25 02/04/25 Unknown History tramadol 50 mg tablet 50 mg PO BEDTIME 02/04/25 02/04/25 Unknown History Physical Exam 2 Vital Signs: Vital Signs: Last Vital Signs Temp 98.7 F 02/07/25 07:23 Pulse 79 02/07/25 07:23 Resp 14 02/07/25 07:23 BP 110/74 02/07/25 07:23 Pulse Ox 100 02/07/25 07:23 O2 Del Method Room Air 02/07/25 07:23 BMI result Body Mass Index 24.4 Neuro: Other: He is alert and awake with normal spontaneity of speech fluency comprehension and affect. Face is symmetrical. Facial expressions are maintained. Extraocular muscles are intact. Visual christopher are full. Moderate postural and action tremor is noted bilaterally. Mild speech tremor is noted. Deep tendon reflexes are absent with flexor plantars. Examination is limited partly due to his back wound and dressing due to which she could not lay flat. Results Labs 02/04/25 05:43 02/04/25 05:43 Labs: Head CT revealed mild diffuse cerebral and cerebellar atrophy. Assessment and Plan (1) Benign essential tremor: Status: Acute 59 years old man with complicated medical and psychiatric history reported having tremor sense he was about 29 years old. He said that many family members also suffered from similar tremor. At this time on examination he has moderate amount of action or postural tremor with mild speech tremor. There are no significant signs to suggest Parkinson's disease. I had noticed that he is taking Depakote, which seem to make this tremor worse but the dizzy and about Depakote should be made based upon its behavioral response. Usually, treatment is beta blockers or primidone. I would suggest increasing dose of primidone 250 mg 3 times a day. Procedures Date of Service Date of Service: 02/07/25
[2025-02-07 11:12] LABS: Glucose, Whole Blood 290 mg/dL (60-115)
[2025-02-07 11:31] VITALS: BP 110/71; PULSE 81; RESP 17; TEMP 36.1; O2SAT 97
--- NOTE | 2025-02-07 11:47 | PC.NURSE ---
pt was administered 4 units of insulin during lunch as pt requested and reported poor appetite today.
--- NOTE | 2025-02-07 12:20 | MHC.CM.PN ---
[facility] @ [facility] has accepted Patient and CM has asked that they initiate insurance auth with [employer]. CM will follow.
--- NOTE | 2025-02-07 15:49 | HO.PM.IMPN ---
Subjective Subjective Date of Service: 02/07/25 Interval History: Seen and examined this morning Follow-up for ankle fracture, orthostatic hypotension No overnight events, no specific complaints this morning Review of Systems Review of Systems: Yes all other systems are reviewed and are negative Constitutional Constitutional: Denies fever(s) Physical Exam Vital Signs: Vital Signs: Last Vital Signs Temp 97 F 02/07/25 11:31 Pulse 81 02/07/25 11:31 Resp 17 02/07/25 11:31 BP 110/71 02/07/25 11:31 Pulse Ox 97 02/07/25 11:31 O2 Del Method Room Air 02/07/25 11:31 BMI result Body Mass Index 24.4 Const: General: cooperative, comfortable, no acute distress, alert and awake Nutritional Appearance: average body habitus Orientation/consciousness: patient oriented x3 Resp: Effort & Inspection: normal respiratory effort, able to speak in complete sentences, no respiratory distress and no use of accessory muscles Cardio: Rate: regular rate GI: Inspection: No distended Palpation (GI): Soft to palpation and nontender Neuro: General: patient oriented x3, moves all extremities and CN's II-XI intact bilaterally Extrem: Other: Right foot/ankle splinted Objective Data Active Medications Acetaminophen (Acetaminophen 325 Mg Tablet) 650 mg PO Q6H PRN PRN Reason: Pain, Mild 1-3,fever,headache Last Admin: 02/06/25 08:47 Dose: 650 mg Documented By: DAR Aspirin (Aspirin Enteric Coated 81 Mg Tablet.) 81 mg PO DAILY [facility] Last Admin: 02/07/25 07:52 Dose: 81 mg Documented By: BEBETO Atorvastatin Calcium (Atorvastatin Calcium 80 Mg Tablet) 80 mg PO BEDTIME [facility] Last Admin: 02/06/25 19:27 Dose: 80 mg Documented By: LOU Calcium Carbonate (Calcium Carbonate 750 Mg Tab.Chew) 750 mg PO Q4H PRN PRN Reason: Heartburn Dextrose (Dextrose 50 % 25 Gm/50 Ml Syringe) 25 gm IVPUSH Q15M PRN; Protocol PRN Reason: per Hypoglycemia Standing Ord. Divalproex Sodium (Divalproex Sodium 500 Mg Tablet.) 500 mg PO BID [facility] Last Admin: 02/07/25 07:52 Dose: 500 mg Documented By: BEBETO Duloxetine HCl (Duloxetine Hcl 30 Mg Capsule.) 30 mg PO DAILY [facility] Last Admin: 02/07/25 07:52 Dose: 30 mg Documented By: BEBETO Duloxetine HCl (Duloxetine Hcl 60 Mg Capsule.) 60 mg PO DAILY [facility] Last Admin: 02/07/25 07:52 Dose: 60 mg Documented By: BEBETO Enoxaparin Sodium (Enoxaparin Sodium 40 Mg/0.4 Ml Syringe) 40 mg SUBCUT Q24H [facility] Last Admin: 02/06/25 18:30 Dose: 40 mg Documented By: DAR Gabapentin (Gabapentin 300 Mg Capsule) 600 mg PO BID [facility] Last Admin: 02/07/25 07:52 Dose: 600 mg Documented By: BEBETO Glucose (Glucose Gel 15 Gm Gel..Gram.) 15 gm PO Q15M PRN; Protocol PRN Reason: per Hypoglycemia Standing Ord. Hydromorphone HCl (Hydromorphone Hcl 0.5 Mg/0.5 Ml Syringe) 0.5 mg IVPUSH Q4H PRN; Protocol PRN Reason: Pain, Severe (Pain Scale 7-10) Insulin Glargine (Insulin Glargine,Hum.Rec.Anlog 100 Unit/Ml 10 Ml Vial) 10 unit SUBCUT BEDTIME [facility] Last Admin: 02/06/25 20:52 Dose: 10 unit Documented By: LOU Insulin Human Lispro (Insulin Lispro 100 Unit/Ml 3 Ml Vial) 0 unit SUBCUT QIDACHS [facility]; Protocol Last Admin: 02/07/25 11:47 Dose: 4 unit Documented By: BEBETO Magnesium Hydroxide (Milk Of Magnesia 30 Ml Oral.Susp) 30 ml PO DAILY PRN PRN Reason: Constipation Melatonin (Melatonin 3 Mg Tablet) 6 mg PO BEDTIME PRN PRN Reason: Insomnia Metoprolol Succinate (Metoprolol Succinate Er 50 Mg Tab.Er.24h) 50 mg PO BEDTIME [facility]; Protocol Last Admin: 02/06/25 19:28 Dose: 50 mg Documented By: LOU Midodrine (Midodrine Hcl 2.5 Mg Tablet) 2.5 mg PO BID@0730,1130 [facility] Last Admin: 02/07/25 11:47 Dose: 2.5 mg Documented By: BEBETO Omeprazole (Omeprazole 40 Mg Capsule.) 40 mg PO DAILY@0630 [facility] Last Admin: 02/07/25 05:13 Dose: 40 mg Documented By: LOU Ondansetron HCl (Ondansetron Hcl 4 Mg/2 Ml Vial) 4 mg IVPUSH Q8H PRN PRN Reason: Nausea and Vomiting Oxycodone HCl (Oxycodone Hcl Immed Release 5 Mg Tablet) 5 mg PO Q4H PRN PRN Reason: Pain, Moderate(Pain Scale 4-6) Last Admin: 02/07/25 05:12 Dose: 5 mg Documented By: LOU Primidone (Primidone 50 Mg Tablet) 50 mg PO BEDTIME [facility] Last Admin: 02/06/25 19:28 Dose: 50 mg Documented By: LOU Quetiapine Fumarate (Quetiapine Fumarate 100 Mg Tablet) 100 mg PO BEDTIME [facility] Last Admin: 02/06/25 19:28 Dose: 100 mg Documented By: LOU Senna (Sennosides 8.6 Mg Tablet) 17.2 mg PO BEDTIME [facility] Last Admin: 02/06/25 20:45 Dose: Not Given Documented By: LOU Non-Admin Reason: Patient Refused Sodium Chloride (0.9 % Sodium Chloride Flush 3 Ml Syringe) 3 ml IVFLUSH [facility] Last Admin: 02/07/25 07:59 Dose: 3 ml Documented By: BEBETO Sodium Chloride (0.9 % Sodium Chloride Flush 3 Ml Syringe) 3 ml IVFLUSH [facility] Last Admin: 02/07/25 07:59 Dose: Not Given Documented By: BEBETO Non-Admin Reason: Duplicate Order Tramadol HCl (Tramadol Hcl 50 Mg Tablet) 50 mg PO BEDTIME [facility] Last Admin: 02/06/25 20:53 Dose: 50 mg Documented By: LOU Trazodone HCl (Trazodone Hcl 100 Mg Tablet) 100 mg PO BEDTIME PRN PRN Reason: Sleep Labs 02/04/25 05:43 02/04/25 05:43 Labs: Laboratory Results - last 24 hr 02/06/25 02/07/25 02/07/25 19:58 07:16 11:08 POC Glucose 236 H 161 H 290 H Assessment and Plan (1) Dysautonomia orthostatic hypotension syndrome: Status: Acute (2) Fracture of right ankle, lateral malleolus: Status: Acute (3) Benign essential tremor: Status: Acute Plan This is a 59-year-old male with past medical history osteoarthritis, GERD, insulin-dependent diabetes type 2, right elbow replacement, syncope, orthostasis, severe depression, bipolar disorder, schizoaffective disorder, urinary incontinence, penile pump for erectile dysfunction, degenerative spine disease and cervical spine surgery, right hand trauma, essential tremor, history of alcohol abuse, history of cocaine abuse, history of tobacco abuse and patient is a Jehov[employer] Witness and is against blood transfusions admitted for syncope/ orthostasis, R ankle injury currently splinted, hyperkalemia, hyperglycemia, depression and no current access to psychiatric care due to recent move. Syncope/Orthostasis, acute on chronic ECHO with EF of 55-60% and no significant valvular abnormalities carotid dopplers showing 0-49% stenosis of the bilateral internal carotid arteries TEDS ordered Cardiology following>rec midodrine 2.5 mg before breakfast and lunch. may use hydralazine for rebound hypertension STR at dc Hyperkalemia. Resolved s/p Lokelma R malleolus/distal fibula fracture Orthopedics consulted> no acute intervention indicated, follow up with Orthopedic surgery outpatient, nonweightbearing on right lower extremity, foot elevation with at least 1-2 pillows as much as possible Hyperglycemia/ IDDM II AIC 8.1 Sliding scale, Diabetic diet Depression/schizoaffective disorder/ Bipolar Pt apparently voiced passive SI in the ED Currently reports being increasingly depressed, but denies SI Seroquel at bedtime Cymbalta and Depakote Care team/psychiatry evaluation Seen by psychiatric team, no change to medications recommended. Cleared by care team. Essential tremor Chronic with no report of hx of tardive dyskinesia, EPS or parkinson's or parkinsonism like symptoms psych requested neuro consult - consider increasing primidone to 250 3 times daily. Although already on multiple sedating medications GERD Omeprazole Jeh[employer] Witness no blood transfusions DVT prophylaxis: lovenox Full code Pt will require additional hospital stay while awaiting placement to STR Quality Stroke Does the patient have a stroke diagnosis?: No Reason for No Anti-thrombotic by Day Two: N/A - Med Ordered VTE Prior VTE?: No VTE Risk Level:: Medical - moderate - high VTE Device Contraindication: N/A - Device Ordered VTE Drug Contraindication: N/A - Med Ordered
[2025-02-07 16:00] VITALS: BP 141/82; PULSE 80; RESP 20; TEMP 36.3; O2SAT 98
[2025-02-07 16:04] LABS: Glucose, Whole Blood 246 mg/dL (60-115)
[2025-02-07 19:00] VITALS: BP 144/85; PULSE 90; RESP 18; TEMP 36; O2SAT 98
[2025-02-07] MEDS: Atorvastatin Calcium 80 MG TABLET PO (19:28)
[2025-02-07] MEDS: Primidone 50 MG TABLET PO (19:28)
[2025-02-07] MEDS: traMADoL HCL 50 MG TABLET PO (19:28)
[2025-02-07] MEDS: QUEtiapine Fumarate 100 MG TABLET PO (19:28)
[2025-02-07] MEDS: Metoprolol Succinate ER 50 MG TAB.ER.24H PO (19:28)
[2025-02-07] MEDS: Enoxaparin Sodium 40 MG/0.4 ML SYRINGE SUBCUT (19:29)
[2025-02-07 20:46] LABS: Glucose, Whole Blood 315 mg/dL (60-115)
[2025-02-07] MEDS: Insulin Glargine,Hum.rec.anlog 100 UNIT/ML 10 ML VIAL 10 UNIT SUBCUT (21:23)
[2025-02-07 23:11] VITALS: BP 105/63; PULSE 83; RESP 18; TEMP 36.8; O2SAT 99
[2025-02-08 02:34] VITALS: BP 125/79; PULSE 80; RESP 18; TEMP 36.8; O2SAT 99
[2025-02-08] MEDS: oxyCODONE HCl Immed Release 5 MG TABLET PO ×2 (04:23→13:07)
[2025-02-08] MEDS: Omeprazole 40 MG CAPSULE.DR PO (04:23)
[2025-02-08 06:00] VITALS: BMI 24.4
[2025-02-08 07:15] LABS: Glucose, Whole Blood 275 mg/dL (60-115)
[2025-02-08 07:19] VITALS: BP 129/83; PULSE 82; RESP 15; TEMP 36.1; O2SAT 98
[2025-02-08] MEDS: Gabapentin 300 MG CAPSULE 600 MG PO (07:37)
[2025-02-08] MEDS: Aspirin Enteric Coated 81 MG TABLET.DR PO (07:37)
[2025-02-08] MEDS: Midodrine HCl 2.5 MG TABLET PO ×2 (07:37→11:59)
[2025-02-08] MEDS: Divalproex Sodium 500 MG TABLET.DR PO (07:37)
[2025-02-08] MEDS: DULoxetine HCl 60 MG CAPSULE.DR PO (07:37)
[2025-02-08] MEDS: DULoxetine HCl 30 MG CAPSULE.DR PO (07:38)
[2025-02-08] MEDS: Insulin Lispro 100 UNIT/ML 3 ML VIAL SUBCUT ×2 (07:38→11:59)
[2025-02-08] MEDS: 0.9 % Sodium Chloride Flush 3 ML SYRINGE IVFLUSH (07:46)
--- NOTE | 2025-02-08 09:43 | PM.DS ---
DS: Providers Provider Date of Service: 02/08/25 Date of admission: 02/03/25 18:04 Date of discharge: 02/08/25 Primary care physician: None Physician Consults: 02/03/25 18:57 Consult to Cardiology Routine Consulting Provider: [facility] Reason for consultation: syncope, orthostasis Has provider been notified: No 02/03/25 19:49 Consult to Orthopedics Routine Consulting Provider: [facility] Reason for consultation: R ankle injury, malleolus and distal fibular fracture Has provider been notified: No 02/06/25 10:50 Inpt CARE Team Crisis Consult Routine Comment: Reason for consultation: Depression, ?SI as reported in the ED 02/06/25 15:47 Consult to Neurology Routine Consulting Provider: [facility] Reason for consultation: parkinson's Has provider been notified: Yes Attending physician on discharge: Quintin Mclean [place] Discharging clinician: Jessica Chaves DS: Diagnosis Discharge Diagnosis (1) Dysautonomia orthostatic hypotension syndrome: Status: Acute (2) Fracture of right ankle, lateral malleolus: Status: Acute (3) Benign essential tremor: Status: Acute DS: Summary Hospital Course Hospital Course: History and physical as per admitting provider. Patient is a 59-year-old male with past medical history osteoarthritis, GERD, insulin-dependent diabetes type 2, right elbow replacement, syncope, orthostasis, severe depression, bipolar disorder, schizoaffective disorder, urinary incontinence, penile pump for erectile dysfunction, degenerative spine disease and cervical spine surgery,l right hand trauma, essential tremor, history of alcohol abuse, history of cocaine abuse, history of tobacco abuse and patient is a Jehovah Witness and is against blood transfusions presents to the emergency department with complaint of a syncopal episode unwitnessed. Patient states the incident occurred while he was in the kitchen walking to his sister's bedroom and patient was found down in front of his sister's bedroom door. Patient feels he was out for approximately a few sec. Patient denies a hit to the head. Patient did report pain in the right lower extremity and patient was not able to bear weight. Patient was not diaphoretic but is not sure if his blood sugar was low at the time. Patient states his appetite has been poor but denies any weight loss. This newswriter has not been able to contact pt's sister to review this occurrence or review pt's medication status and hx. Head CT negative for any acute findings. Pt found to have Mildly displaced oblique fracture of the lateral malleolus of the distal fibula with overlying soft tissue swelling. Pt splinted in ED. Pain is well controlled. Per ED note, pt states he has fractured the right ankle in the past. Incidentally D-dimer was also elevated and CTA completed which was negative for PE. Noted was cholelithiasis and early lung fibrosis. Pt currently on RA. Potassium also elevated, 5.5 to 5.8 and pt received lokelma in the ED. Renal fx slightly decreaed but rebounded with fluids. UA negative for ketones, protein.Patient reports ongoing issues with dizziness, orthostasis and syncopal episodes over the last year. Patient was started on medication to help with this (fludrocortisone)but patient continues to have episodes. Patient moved from [place] with his sister back to [place] 2 months ago as he was about to become homeless. The relative they were living in [place] with sold their home and they had no where to go. Patient has not had any psychiatric or primary care since moving to [place]. Patient has been feeling more depressed and has not been managing his diabetes using insulin or checking his blood sugars. In addition, patient has had no psychiatric medications as he does not currently have a provider in this area. Pt has his first PCP appt in August 2025. Pt states he has been feeling suicidal lately but has no plan. Pt denies having SI, HI at this time. Pt reports he feels safe and is very close to his sister and safe at home. Pt being admitted for syncope, R ankle injury, hyperkalemia, hyperglycemia and noted psychiatric hx off medications due to lack of access to care feeling depressed. Syncope/Orthostasis, acute on chronic . ECHO with EF of 55-60% and no significant valvular abnormalities. carotid dopplers showing 0-49% stenosis of the bilateral internal carotid arteries. TEDS ordered. Cardiology following>rec midodrine 2.5 mg before breakfast and lunch. may use hydralazine for rebound hypertension. Physical therapy rec STR. R malleolus/distal fibula fracture . Orthopedics consulted> no acute intervention indicated, follow up with Orthopedic surgery outpatient, nonweightbearing on right lower extremity, foot elevation with at least 1-2 pillows as much as possible. pain well controlled Hyperglycemia/ IDDM II . AIC 8.1. continue home medications Depression/schizoaffective disorder/ Bipolar Seroquel at bedtime. Cymbalta and Depakote Hyperkalemia. Resolved. s/p Lokelma Essential tremor Chronic with no report of hx of tardive dyskinesia, EPS or parkinson's or parkinsonism like symptoms. Seen by Neurology-no significant size to suggest Parkinson's disease. can consider increasing primidone to 250 three times daily if worsens GERD. Omeperazole Jehova Witness .no blood transfusions Anticipate less than 30 day stay at SNF Time Attestation Discharge Coordination Time (in mins): 36 Quality: Safe Use of Opioids Does Pt have an Active Cancer Diagnosis on the Problem List?: No Quality: Stroke Does the patient have a stroke diagnosis?: No Physical Exam Vital Signs: Vital Signs: Last Vital Signs Temp 97.0 F 02/08/25 07:19 Pulse 82 02/08/25 07:19 Resp 15 02/08/25 07:19 BP 129/83 02/08/25 07:19 Pulse Ox 98 02/08/25 07:19 O2 Del Method Room Air 02/08/25 07:19 BMI result Body Mass Index 24.4 Const: General: cooperative, comfortable, no acute distress, alert and awake Nutritional Appearance: average body habitus Orientation/consciousness: patient oriented x3 Resp: Effort & Inspection: normal respiratory effort, able to speak in complete sentences, no respiratory distress and no use of accessory muscles Cardio: Rate: regular rate GI: Inspection: No distended Palpation (GI): Soft to palpation and nontender Neuro: General: patient oriented x3, moves all extremities and CN's II-XI intact bilaterally Extrem: Other: Right foot/ankle splinted DS: Data Data Completed and Pending Labs on day of discharge: Laboratory Results - last 24 hr 02/07/25 02/07/25 02/07/25 11:08 15:59 20:41 POC Glucose 290 H 246 H 315 H 02/08/25 07:06 POC Glucose 275 H Discharge Plan Discharge Anticipated Discharge Date/Time: 02/08/25 09:47 Patient Disposition: Xfer SNF Discharge Diagnosis: Syncope Orthostasis R malleolus/distal fibula fracture Referrals: [facility] [Outside] - 1 Week (TRANSFER FOR SHORT TERM REHAB) Alex Wooten PA [Physician Supervisor Grounds] - 1 Week Physician,None [Primary Care Provider] - 1 Week Discharge Medications: New midodrine 2.5 mg Tablet 2.5 mg PO BID Qty: 60 0RF Rx Instructions: before breakfast and before lunch oxycodone 5 mg Tablet 5 mg PO Q4H PRN (Reason: Pain, Moderate(Pain Scale 4-6)) Qty: 10 0RF Rx Instructions: Partial Fill upon patient request. Continued omeprazole 40 mg capsule,delayed release(DR/EC) 40 mg PO DAILY@0630 gabapentin 300 mg capsule 600 mg PO BID insulin lispro 100 unit/mL insulin pen 0 sliding scale dose subcut TIDAC rosuvastatin 40 mg tablet 1 tab PO BEDTIME duloxetine 30 mg capsule,delayed release(DR/EC) 30 mg PO DAILY trazodone 100 mg tablet 1 tab PO BEDTIME PRN (Reason: Sleep) quetiapine 100 mg Tablet 100 mg PO BEDTIME Qty: 30 0RF primidone 50 mg tablet 50 mg PO BEDTIME divalproex 250 mg tablet,delayed release (DR/EC) 500 mg PO BID tramadol 50 mg tablet 50 mg PO BEDTIME metoprolol succinate 25 mg tablet extended release 24 hr 50 mg PO BEDTIME fluticasone propionate 50 mcg/actuation spray,suspension 1 spray intranasal BID PRN (Reason: sinus pressure) diclofenac sodium 25 mg tablet,delayed release (DR/EC) 25 mg PO BID PRN (Reason: Pain) metformin 850 mg tablet 850 mg PO BIDWM ibuprofen [Advil] 200 mg Tablet 200 mg PO Q6H PRN (Reason: Pain) aspirin 81 mg tablet,delayed release (DR/EC) 81 mg PO DAILY Trulicity 1.5 mg/0.5 mL pen injector 1.5 mg subcut TU duloxetine 60 mg Capsule, Delayed Rel Sprinkle 60 mg PO DAILY Rx Instructions: take 30mg with 60mg acetaminophen 650 mg tablet extended release 650 mg PO TID PRN (Reason: Pain) Changed insulin glargine [Lantus Solostar U-100 Insulin] 100 unit/mL (3 mL) insulin pen 15 unit subcut BEDTIME Qty: 15 0RF Discharge Orders: Discharge Order (Routine); Ordered 02/08/25 Ordered By: Jessica Chaves Diet: Advance to usual diet Activity on Discharge: As tolerated Stand Alone Forms: Patient Portal Discharge page Print Language: Cook Islander Care Plan Goals: see below Health Concerns: Syncope Orthostasis R malleolus/distal fibula fracture Plan of Treatment: Follow up with primary care provider as needed Take all medications as prescribed - midodrine dosed at breakfast and lunch For R malleolus/distal fibula fracture: Should follow-up with us in outpatient clinic next week- call to schedule an appointment Nonweightbearing on right lower extremity Splint must remain clean, dry, intact Elevate right foot and ankle on at least 1-2 pillows as much as possible Assessment: See discharge summary
--- NOTE | 2025-02-08 10:42 | MHC.CM.PN ---
DP: PT HAS BEEN MEDICALLY CLEARED FOR DC TO [facility]. [facility] HAS OBTAINED INSURANCE AUTH FOR ADMISSION. PA/RN AWARE. BLS TRANSPORT BOOKED FOR 1 PM VIA [facility]. FINAL IMM DELIVERED.
[2025-02-08 11:18] VITALS: BP 127/77; PULSE 85; RESP 17; TEMP 36.7; O2SAT 98
[2025-02-08 11:20] LABS: Glucose, Whole Blood 353 mg/dL (60-115)
== END 2025-02-08 13:23 | disposition skilled nursing facility (03) | DRG 312 ==
LOC: HO.ED 18:08 → HO.EDOVER 18:25 → HO.IMC 19:33
PROVIDERS: Nurse Practitioner Acute Care; Physician Assistant Medical; Registered Nurse Emergency; Student in an Organized Health Care Education/Training Program; Admitting Provider Nurse Practitioner Family; Emergency Provider Emergency Medicine Emergency Medical Services; Visit Provider Physician Assistant Medical
DX: I95.1 Orthostatic hypotension (principal); S82.431A Displaced oblique fracture of shaft of right fibula, initial encounter for closed fracture; W19.XXXA Unspecified fall, initial encounter; E11.65 Type 2 diabetes mellitus with hyperglycemia; K21.9 Gastro-esophageal reflux disease without esophagitis; F32.A Depression, unspecified; F25.9 Schizoaffective disorder, unspecified; G25.0 Essential tremor; I65.23 Occlusion and stenosis of bilateral carotid arteries; E87.5 Hyperkalemia; Z20.822 Contact with and (suspected) exposure to COVID-19; Z87.891 Personal history of nicotine dependence; Z79.4 Long term (current) use of insulin; Z79.82 Long term (current) use of aspirin; Z79.84 Long term (current) use of oral hypoglycemic drugs; Z79.85 Long-term (current) use of injectable non-insulin antidiabetic drugs; Z79.899 Other long term (current) drug therapy
CPT/HCPCS: 0241U; 36415; 70450; 71275; 73610; 80048; 80053; 81001; 82947; 83036; 83735; 83880; 84439; 84443; 84484; 85025; 85379; 85610; 93005; 93306; 93880; 97116; 97162; 99285; J1171; J1650; Q9967; S9485

== ENCOUNTER → 2025-02-03 13:47 | Outpatient (BNV) | payer MEDICARE, MEDICAID, SELFPAY | PROVIDERS: Emergency Provider Emergency Medicine Emergency Medical Services; Visit Provider Radiology Diagnostic Radiology | DX: R55 Syncope and collapse (principal); R42 Dizziness and giddiness; S82.64XA Nondisplaced fracture of lateral malleolus of right fibula, initial encounter for closed fracture | CPT/HCPCS: 70450; 71275; 73610 ==

== ENCOUNTER 2025-02-03 18:04 | Outpatient (BNV) | payer MEDICARE, MEDICAID, SELFPAY | END 2025-02-04 07:00 | PROVIDERS: Admitting Provider Nurse Practitioner Family; Emergency Provider Emergency Medicine Emergency Medical Services; Visit Provider Radiology Diagnostic Radiology | DX: R55 Syncope and collapse (principal) | CPT/HCPCS: 93880 ==

== ENCOUNTER 2025-02-03 18:04 | Outpatient (BNV) | payer MEDICARE, MEDICAID, SELFPAY | END 2025-02-04 07:00 | PROVIDERS: Admitting Provider Nurse Practitioner Family; Emergency Provider Emergency Medicine Emergency Medical Services; Visit Provider Internal Medicine Cardiovascular Disease | DX: I34.81 Nonrheumatic mitral (valve) annulus calcification (principal); I34.0 Nonrheumatic mitral (valve) insufficiency; I36.1 Nonrheumatic tricuspid (valve) insufficiency; I42.8 Other cardiomyopathies | CPT/HCPCS: 93306 ==

== ENCOUNTER → 2025-02-03 18:04 | Outpatient (BNV) | payer MEDICARE, MEDICAID, SELFPAY | PROVIDERS: Admitting Provider Nurse Practitioner Family; Emergency Provider Emergency Medicine Emergency Medical Services; Visit Provider Internal Medicine Cardiovascular Disease | DX: I95.1 Orthostatic hypotension (principal) | CPT/HCPCS: 93010; 99222 ==

== ENCOUNTER → 2025-02-03 18:04 | Outpatient (BNV) | payer MEDICARE, MEDICAID, SELFPAY | PROVIDERS: Admitting Provider Nurse Practitioner Family; Emergency Provider Emergency Medicine Emergency Medical Services | DX: S82.61XA Displaced fracture of lateral malleolus of right fibula, initial encounter for closed fracture (principal) | CPT/HCPCS: 99222 ==

== ENCOUNTER → 2025-02-03 18:04 | Outpatient (BNV) | payer MEDICARE, MEDICAID, SELFPAY | PROVIDERS: Admitting Provider Nurse Practitioner Family; Emergency Provider Emergency Medicine Emergency Medical Services; Visit Provider Social Worker | DX: F39 Unspecified mood [affective] disorder (principal) | CPT/HCPCS: 99232 ==

== ENCOUNTER → 2025-02-03 18:04 | Outpatient (BNV) | payer MEDICARE, MEDICAID, SELFPAY | PROVIDERS: Admitting Provider Nurse Practitioner Family; Emergency Provider Emergency Medicine Emergency Medical Services; Visit Provider Psychiatry & Neurology Neurology | DX: G25.0 Essential tremor (principal) | CPT/HCPCS: 99222 ==

== ENCOUNTER → 2025-02-03 18:04 | Outpatient (BNV) | payer MEDICARE, MEDICAID, SELFPAY | PROVIDERS: Admitting Provider Nurse Practitioner Family; Emergency Provider Emergency Medicine Emergency Medical Services; Visit Provider Nurse Practitioner Acute Care | DX: E11.9 Type 2 diabetes mellitus without complications (principal); R55 Syncope and collapse | CPT/HCPCS: 99223; 99232 ==

== ENCOUNTER 2025-02-11 08:38 | Outpatient (REF) | payer MEDICARE, MEDICAID, SELFPAY | END 2025-02-11 08:39 | disposition home or self-care (01) | LOC: HO.HOSX 08:38 | PROVIDERS: Visit Provider Physician Assistant | DX: Z13.89 Encounter for screening for other disorder (principal) ==

== ENCOUNTER 2025-02-22 08:39 | Outpatient (REF) | payer MEDICARE, MEDICAID, SELFPAY ==
--- NOTE | ~2025-02-22 | XR_ITS ---
EXAMINATION: XR ANKLE, RIGHT CLINICAL INFORMATION: M25.571 - Pain in right ankle and joints of right foot COMPARISON: None available. TECHNIQUE: AP, lateral, and mortise views of the right ankle. FINDINGS: Bilateral oblique fracture of the lateral malleolus with minimal displacement, unchanged. Fracture line still well seen without gross callus. No additional fractures evident. The mortise remains intact. The talar dome is normal. The subtalar joints and calcaneus appear intact. There is a moderate-sized dorsal calcaneal spur. There is similar lateral soft tissue swelling. There are vascular calcifications in the soft tissues. XR/XR ankle RT min 3V IMPRESSION: Fracture of the lateral malleolus, minimally displaced, unchanged. Overlying soft tissue swelling. Electronically signed by: Juan Antonio Parham MD 02/22/2025 11:58 AM EDT
--- OUTSIDE RECORDS SUMMARY | 2025-02-25 08:58 | XMS_ITS | Continuity of Care Document ---
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 Name Role Phone Jer FREY, Ujjwala Unavailable [...] 08/31/2023 appt with psych amrit hastings from [facility] Lantus U-100 Insulin 100 unit/mL subcutaneous [...] Has been filled by Psych so far SEElogix Bebe 2 Independence use to read blood sugar QID - Active Advance Directives Directive Yes / No Effective Date File Name No Information Encounters Encounter Description Practice Location Reason(s) For Visit Diagnoses Date Provider [facility], 1 On license of [facility] [address], [place], [place], [id number], [place] tel:[phone] [place] No Information Shreyas- 0-202 4 Jer Fletcherjjjanea. [address] [place], [place], [id number], [place]. tel:[phone] [facility], [address], [place], [place], [id number], [place] tel:[phone] [place] No Information January-2 4-202 4 Coon Ashlee. [address] [place], [place], [id number], [place]. tel:[phone] [facility], [address] [facility], [place], [place], [id number], [place] tel:[phone] [place] No Information January-2 3-202 4 Coon Ashlee. [address] [place], [place], [id number], [place]. tel:[phone] [facility], [address], [place], [place], [address], [place] tel:[phone] [place] No Information Dec-3 0-202 4 Coon Ashlee. [address] [place], [place], [address], [place]. tel:[phone] [facility], [facility] [address], [place], [place], [id number], [place] tel:[phone] [place] No Information Dec-2 2-202 4 Coon Ashlee. [address] [place], [place], [id number], [place]. tel:[phone] [facility], [address], [place], [place], [address], [place] tel:[phone] [place] No Information Dec-1 9-202 4 Coon Ashlee. [address] [place], [place], [address], [place]. tel:[phone] [facility], [address], [place], [place], [id number], [place] tel:[phone] [place] No Information 4 Coon Ashlee. [address] [place], [address], [place]. tel:[phone] [facility], 1 [facility] [address] [facility] [facility], [place], [place], [address], [place] tel:[phone] [place] No Information 4 Pitsiladis Adelina. [address] [facility] [place], [id number], [place]. tel:[phone] [facility], [address] [address], [place], [place], [address], [place] tel:[phone] [place] No Information 4 Coon Ashlee. [address] [facility] [place], [address], [place]. tel:[phone] [facility], 1 [facility], [place], [place], [address], [place] tel:[phone] [place] Encounter for nutritional assessmentDiabetic nutritional counseling completed 4 Normile Caitlin. [address] [facility] [place], [id number], [place]. tel:[phone] [facility], [address] [address], [place], [place], [address], [place] tel:[phone] [place] No Information 4 Coon Ashlee. [address] [facility] [place], [address], [place]. tel:[phone] [facility], [address] [address], [place], [place], [address], [place] tel:[phone] [place] Muscle weakness (generalized) b0 4 Brianna Leonarda. [address] [facility] [place], [address], [place]. tel:[phone] [facility], 1 [facility] [address], [place], [place], [address], [place] tel:[phone] [place] Difficulty in walkin g, not elsewhere classified [address] Caraballo[address] [facility] [place], [address], [place]. tel:[phone] [facility], 1 [facility], [place], [place], [address], [place] tel:[phone] [place] Muscle weakness (generalized) 4 Brianna Brower. [address] [facility] [place], [address], [place]. tel:[phone] [facility], 1 [facility], [place], [place], [address], [place] tel:[phone] [place] Encounter for rehabilitation evaluation 4 Brianna Brower. [address], [place], [place], [address], [place]. tel:[phone] [facility], 1 [facility] [address] [facility], [place], [place], [address], [place] tel:[phone] [place] Semi-Annua l (chief complaint) cont (chief complaint) Type 2 diabetes mellitus with diabetic polyneuropathy, unspecified whether mcfp insulin useCurrent use of insulinSeizureOpioid dependence in remissionHistory of cocaine abusePTSD (post-traumatic stress disorder)Schizoaffectiv e disorder, bipolar typeHypercholesteremiaH ypertension, unspecified typeOrthostatic hypotensionEssential tremorCervical disc diseaseChronic bilateral low back pain without sciaticaOther chronic painObstructive sleep apneaDysautonomiaMercy Hospital care maintenance 4 Shaggy Rosado. [address] [place], [place], [address], [place]. tel:[phone] [facility], 1 [facility] [address] [facility], [place], [place], [address], [place] tel:[phone] [place] No Information 4 Coonbridgett Rosado. [address] [place], [place], [address], [place]. tel:[phone] [facility], [address], [place], [place], [address], [place] tel:[phone] [place] No Information 4 Jake Hoffman. [address] [place], [place], [address], [place]. tel:[phone] [facility], [address], [place], [place], [address], [place] tel:[phone] [place] Difficulty in walkin g, not elsewhere classified [address] Caraballo[address] [place], [place], [address], [place]. tel:[phone] [facility], [address], [place], [place], [address], [place] tel:[phone] [place] Difficulty in walkin g, not elsewhere classified [address] Caraballo[address] [place], [place], [address], [place]. tel:[phone] [facility], [address], [place], [place], [address], [place] tel:[phone] [place] Encounter for rehabilitation evaluationDifficulty in walking, not elsewhere classified [address] Caraballo. [address], [place], [place], [address], [place]. tel:[phone] [facility], [address], [place], [place], [address], [place] tel:[phone] [place] No Information 3 Shaggy Rosado. [address] [place], [place], [address], [place]. tel:[phone] [facility], [address], [place], [place], [address], [place] tel:[phone] [place] Muscle weakness (generalized) Aug- 3 [address] Caraballo. [address] [place], [place], [address], [place]. tel:[phone] [facility], [address], [place], [place], [address], [place] tel:[phone] [place] Other abnormalities of gait and mobility [address] Caraballo[address], [place], [place], [address], [place]. tel:[phone] [facility], [address], [place], [place], [address], [place] tel:[phone] [place] No Information 3 Shaggy Rosado. [address] [place], [place], [address], [place]. tel:[phone] [facility], [address], [place], [place], [address], [place] tel:[phone] [place] No Information 3 Shaggy Rosado. [address] [place], [place], [address], [place]. tel:[phone] [facility], [address], [place], [place], [address], [place] tel:[phone] [place] Difficulty in walkin g, not elsewhere classified [address]ab[address] [place], [place], [address], [place]. tel:[phone] [facility], [address], [place], [place], [address], [place] tel:[phone] [place] Difficulty in walkin g, not elsewhere classified [address] Carab[address] [place], [place], [address], [place]. tel:[phone] [facility], [address] [facility], [place], [place], [address], [place] tel:[phone] [place] Acute Visit (chief complaint) Essential tremorObstructive sleep apneaOrthostatic hypotensionOther chronic pain 3 Shaggy Rosado. [address] [place], [place], [address], [place]. tel:[phone] [facility], 1 [facility], [place], [place], [address], [place] tel:[phone] [place] Difficulty in walkin g, not elsewhere classified [address]ab[address] [place], [place], [address], [place]. tel:[phone] [facility], 1 [facility], [place], [place], [address], [place] tel:[phone] [place] Difficulty in walkin g, not elsewhere classified [address]mi[address] [place], [place], [address], [place]. tel:[phone] [facility], 1 [facility], [place], [place], [address], [place] tel:[phone] [place] Encounter for rehabilitation evaluation [address] Rashmi[address] [place], [place], [address], [place]. tel:[phone] [facility], 1 [facility], [place], [place], [address], [place] tel:[phone] [place] No Information 3 Danny Hodges. [address] [place], [place], [address], [place]. tel:[phone] [facility], 1 [facility] [address], [place], [place], [address], [place] tel:[phone] [place] Semi-Annua l (chief complaint) Schizophrenia, unspecified typeBipolar 1 disorderHealthcare maintenanceObstructive sleep apneaEssential tremorChronic pain syndromeCervical disc diseaseSeizureHyperchol esteremiaChronic bilateral low back pain, unspecified whether sciatica presentOther chronic painErectile dysfunction, unspecified erectile dysfunction typeUrinary incontinence, unspecified typeType 2 diabetes mellitus with diabetic polyneuropathy, unspecified whether mcfp insulin useCurrent use of insulinPrimary hypertensionOpioid dependence in remissionHistory of cocaine abusePTSD (post-traumatic stress disorder) 3 Shaggy Rosado. [address] [facility] [address], [place], [place], [id number], [place]. tel:[phone] [facility], [facility] [address] [facility], [place], [place], [address], [place] tel:[phone] [place] Encounter for nutritional assessmentAt risk for inadequate oral intakeDiabetic nutritional counseling completed 3 Pelon Tucker. [address] [place], [place], [address], [place]. tel:[phone] [facility], [address] [facility] [facility] [address] [facility], [place], [place], [address], [place] tel:[phone] [place] Dorsalgia, unspecified 3 Bhagavatula Uclaricejwala. [address], [place], [place], [address], [place]. tel:[phone] [facility], 1 [facility] AQSte [facility], [place], [place], [address], [place] tel:[phone] [place] Encounter for genera l adult medical examination without abnormal findings 3 Robert Johnson. [address] [place], [place], [id number], [place]. tel:[phone] [facility], [facility], [place], [place], [address], [place] tel:[phone] [place] Type 2 diabetes mellitus with other skin complications 3 Bhagavatula Ujjwala. [address] [facility] [place], [address], [place]. tel:[phone] [facility], [address], [place], [place], [address], [place] tel:[phone] [place] Other chest pain 3 Robert Johnson. [address] [place], [place], [address], [place]. tel:[phone] [facility], [facility], [place], [place], [address], [place] tel:[phone] [place] Encounter for nutritional assessmentDiabetes education, encounter forExcessive carbohydrate intakeAt risk for inadequate oral intake 3 Pelon Tucker. [address] [facility] [place], [address], [place]. tel:[phone] [facility], [facility], [place], [place], [address], [place] tel:[phone] [place] Other chronic pain 3 Praneeth Cerna. [address] [facility], [place], [place], [address], [place]. tel:[phone] [facility], 1 [facility] [address] [facility], [place], [place], [address], [place] tel:[phone] [place] Encounter for rehabilitation evaluation 3 Praneeth Cerna. [address] [facility] [place], [address], [place]. tel:[phone] [facility], [address], [place], [place], [address], [place] tel:[phone] [place] Encounter for rehabilitation evaluation 3 Jamshid Fregoso. [address] [facility] [place], [address], [place]. tel:[phone] [facility], [address], [place], [place], [address], [place] tel:[phone] [place] FATOU (chief complaint) Schizophrenia, unspecified typeBipolar 1 disorderLong term current use of antipsychotic medicationHistory of cocaine abuseHypertension, unspecified typeHypercholesteremiaT ype 2 diabetes mellitus with diabetic polyneuropathy, with long-term current use of insulinLong term (current) use of insulinEssential tremorSeizureLong term (current) use of oral hypoglycemic drugsOpioid dependence, in remission 3 Robert Alex. [address] [place], [place], [id number], [place]. tel:[phone] [facility], [facility], [place], [place], [address], [place] tel:[phone] [place] No Information 2 Danny Hodges. [address] [place], [place], [address], [place]. tel:[phone] [facility], [address] [facility] [facility], [place], [place], [address], [place] tel:[phone] [place] Muscle weakness (generalized) 2 Kirsten Kip. [address] [place], [address]. tel:[phone] [facility], [address], [place], [place], [address], [place] tel:[phone] [place] PHV (chief complaint) longterm current use of antipsychotic medicationAspiration pneumonia, unspecified aspiration pneumonia type, unspecified laterality, unspecified part of lung 2 Os Crissy. [address] [place], [place], [address], [place]. tel:[phone] [facility], [address] [facility] [address] [place] [address], [id number], [place] tel:[phone] [place] No Information 2 Danny Hodges. [address] [place], [place], [address], [place]. tel:[phone] [facility], [address] [facility] [facility], [place], [place], [address], [place] tel:[phone] [place] Muscle weakness (generalized) 2 Kirsten Kip. [address] [place], [address]. tel:[phone] [facility], 1 [facility] [address] [facility], [place], [place], [address], [place] tel:[phone] [place] Muscle weakness (generalized) 2 Kirsten Kip. [address] [place] [place], [address]. tel:[phone] [facility], 1 [facility] [facility], [place], [place], [address], [place] tel:[phone] [place] No Information 2 Os Crissy. [address] [place], [place], [address], [place]. tel:[phone] [facility], 1 [facility], [place], [place], [address], [place] tel:[phone] [place] Hemiplegia and hemiparesis following unspecified cerebrovascular disease affecting right non-dominant sideMuscle weakness (generalized) 2 Kirsten Kip. [address] [place], [address]. tel:[phone] [facility], 1 [facility], [place], [place], [address], [place] tel:[phone] [place] Diabetes education, encounter forEncounter for nutritional assessmentExcessive carbohydrate intake 2 Normile Caitlin. [address] [place], [place], [address], [place]. 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 [address] [place], [place], [address], [place]. tel:[phone] [facility], 1 [facility], [place], [place], [address], [place] tel:[phone] [place] Extraction of tooth needed 2 Os Crissy. [address] [place], [place], [address], [place]. tel:[phone] [facility], 1 [facility] [address] [facility], [place], [place], [address], [place] tel:[phone] [place] Muscle weakness (generalized) 2 Kirsten Kip. [address] [place], [address]. tel:[phone] [facility], 1 [facility] [address] [facility], [place], [place], [address], [place] tel:[phone] [place] Muscle weakness (generalized) 2 Kirsten Kip. [address], [place], [address]. tel:[phone] [facility], 1 [facility], [place], [place], [address], [place] tel:[phone] [place] Obstructive sleep apnea 2 Os Crissy. [address] [place], [place], [address], [place]. tel:[phone] [facility], 1 [facility] [address] [facility], [place], [place], [address], [place] tel:[phone] [place] Difficulty in walkin g, not elsewhere classified 2 Kirsten Kip. [address] [place], [address]. tel:[phone] [facility], [facility] [facility], [place], [place], [address], [place] tel:[phone] [place] Other chronic pain 2 Danny Carroll. [address] [place], [address], [place]. tel:[phone] [facility], [facility] [address], [place], [place], [address], [place] tel:[phone] [place] Type 2 diabetes mellitus with diabetic polyneuropathy, unspecified whether mcfp insulin use 2 Os Crissy. [address] [place], [place], [address], [place]. tel:[phone] [facility], 1 [facility] [address] [facility], [place], [place], [address], [place] tel:[phone] [place] FUV (chief complaint) Edema, unspecified type 2 Os Crissy. [address] [place], [place], [address], [place]. tel:[phone] [facility], 1 [facility], [place], [place], [address], [place] tel:[phone] [place] PHV (chief complaint) Back pain, unspecified back location, unspecified back pain laterality, unspecified chronicity 2 Os Crissy. [address] [place], [place], [address], [place]. tel:[phone] [facility], [facility], [place], [place], [address], [place] tel:[phone] [place] OV (chief complaint) Current use of insulinFall, initial encounterType 2 diabetes mellitus without complication, with long-term current use of insulin 2 Os Crissy. [address] [place], [place], [address], [place]. tel:[phone] [facility], [facility] [facility], [place], [place], [address], [place] tel:[phone] [place] No Information 2 Os Crissy. [address] [place], [place], [address], [place]. tel:[phone] [facility], 1 [facility] [facility], [place], [place], [address], [place] tel:[phone] [place] Type 2 diabetes mellitus with diabetic polyneuropathy, unspecified whether mcfp insulin use 2 Os Crissy. [address] [place], [place], [address], [place]. tel:[phone] [facility], 1 [facility], [place], [place], [address], [place] tel:[phone] [place] Encounter for nutritional assessmentAbnormal weight lossDiabetes education, encounter for 2 Normile Caitlin. [address] [place], [place], [address], [place]. 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 [address] [place], [place], [address], [place]. tel:[phone] [facility], 1 [facility] [address], [place], [place], [address], [place] tel:[phone] [place] Encounter for rehabilitation evaluation 2 Kirsten Shin. [address], [place], [address]. tel:[phone] [facility], 1 [facility] [address] [facility], [place], [place], [address], [place] tel:[phone] [place] Encounter for rehabilitation evaluationDifficulty in walking, not elsewhere classifiedAlteration in performance of activities of daily living 2 Deirdre Garcia Zenobia Leonard. [address] [place], [place], [address]. tel:[phone] [facility], 1 [facility] [address] [facility], [place], [place], [address], [place] tel:[phone] [place] Encounter for genera l adult medical examination without abnormal findings 2 Jeffrey Robins. [address], [place], [place], [address], [place]. tel:[phone] [facility], 1 [facility] [address] [facility], [place], [place], [address], [place] tel:[phone] [place] No Information 2 Aria Chambers. [address] [place], [address], [place]. tel:[phone] Family History Family Member Type Diagnosis Age At Onset Mother Problem Diabetes mellitus Father Problem Heart disease Immunizations Vaccine Date Status Comments Zoster recombinant subunit administered S ource: New Immunization Record Flu-IIV4, p-free administered Source: Ot er Registry COVID-19 Pfizer Bivalent 12y+ administere d Source: Other Registry Fluzone Quad administered [facility] e: New Immunization Record Prevnar 13 administered Source: New Imm unization Record Fluzone Quad [id number] administered Note: Got influenza vaccine same day as COVID ; Source: Other Registry COVID-19 (Pfizer) administered Source: Ot [facility] Provider COVID-19 (Pfizer) administered Source: Ot her Provider Payers Payer name Insurance type Covered republican ID Keiko berman(abiel) [facility] 16 [id number] [facility] 16 [id number] [facility] 16 [id number] [facility] 16 [id number] Social History Type Description Quantity Date Captured Comments Sex Male Smoking Status No Information Chief Complaint And Reason For Visit No Information Plan Of Treatment Date Type Action Status Referral Ordered: Referrals: Neurology. Location: [facility] Appointment date/timeframe: 10/26/2023 ordered Referral Ordered: Referrals: Cardiology. Location: [facility]. Consult Appointment date/timeframe: 02/28/2024 ordered Referral Ordered: Referrals: Pain Medicine. Consult ordered Referral Ordered: Referrals: Gastroenterology Appointment date/timeframe: 03/08/2023 ordered Referral Ordered: Referrals: [facility] [place] [facility] [place] ordered Referral Ordered: Referrals: Podiatry Appointment date/timeframe: 11/29/2022 ordered Referral Ordered: Referrals: [facility] [employer] Appointment date/timeframe: 01/18/2023 ordered Referral Referred To: [...] 2D image, spectral Doppler, color flow image ([id number]), Ordered on: Ordered Future Order: Radiology Order Po lysomnography, 4+ add'l params ([id number]), Ordered on: Ordered History Of Present Illness Encounter Date Complaint History Of Prese nt Illness Semi-Annual Patient was seen today for their Semiannual at the office accompanied by sister who is paid manager long term care. Marquise is known for cancelling or not showing up for appts and had cancelled this appt multiple times and had to be reminded the importance of coming into appts so we can take care of him. Marquise enrolled at in 10/2021. Marquise lives with his sister/paid manager long term care and son who his sister and himself take care of in a first floor appt in [place]. The main goal of marquise and his [...] have orthostasis. No falls in last month. [facility] 09/04- presented for frequent falls at home [...] saw neuro today. ADLs/services: Sister is paid manager long term care and helps with meals, drives ppt [...] this. Mental Health: Follows with Candace Hastings [facility] for schizoaffective disorder bipolar type and [...] has his own teeth and [place] [facility] [place] last seen 05/16/2023 when he had a filling done however this was not scanned in. Denies issues with chewing or swallowing. Had a prior tooth extraction in may 2022. Currently no issues will assess follow up at next semi unless issues. Ophthalmology: Follows with [facility] optometry seen 12/2022 ordered bifocals for presbyopia, age related cataracts bilateral not yet indicated for surgical intervention. Will need follow up at next semi. Cardiology: March 19, 2022 [facility] cardiology Dr. Banda [...] without regional wall motion.Endocrinology: I actually saw [facility] as endo provider through [facility] last apr 2022 most recently was seen [...] : polysommogram with cpap on 04/19/2022 at [facility] referred for non-restorative sleep. Found [...] pain and reported had injections monthly in [place]. He states he had injections of Toradol. Worse pain in his back and his spine does not support his upper body and he falls from side to side but no falls recently. Sister said issue with morphine and this was stopped. Moved from [place] in apr 2021 to be with son who has brain tumor. Ppt was never seen by a provider needed [place] pain management notes and did not offer medical management at this time. This note was written by an RN and it was just a call to the ppt. Awaiting notes from [place] pain management to go any further. Currently pain more controlled does not seem interested at this point. Neurology: 10/26/2023 Dr. Villalpando from [facility] went for tremor that has [...] anything in the last [address] [facility]. Referral placed awaiting [...] given shingles vaccines today and due for obys6Wz:Mind: AxOx4 can be forgetful mild cognitive impairment [...] and +s2Abd soft, non tender, non distended, +tjk8Ftxufc gait Skin intactFeet well taken care for, [...] no nystagmusMAE=strongLSCTA bilaterallyheart rate regular +s1 and +p9yzzbqecbn hand tremors moderate at rest and when [...] home accompanied by sister who is paid manager long term care. We have made multiple attempts to get ppt to come into site and call but no one picked up. Discussed with paid manager long term care that she needs to be available by phone. She checked her phone to make sure there was nothing wrong. She reported she never got any calls. We verified her number along with ppt. Ppt FATOU was due a week earlier but never showed up multiple times and then there was two provider changes. This is my first time meeting [facility] as new pcp. Ppt enrolled at in 10/2021. Ppt lives with his sister/paid manager long term care and son in an first floor appt in [place]. HHN will be getting VS as not done today due to equipment errorNo recent hospitalization, SNFs or falls per ppt, collective and [facility] review in the last year.Complaints/concerns: No real concerns. Sister feels ppt is a little down however ppt reports he just wishes he was living in [place] and that is his goal. ADLs/services: Sister is paid manager long term care and helps with meals, drives ppt [...] has his own teeth and follows with [facility] last seen 05/16/2023 when he had a filling done. Denies issues with chewing or swallowing.Ophthalmology: Follows with [facility] optometry seen 12/2022 ordered bifocals for presbyopia, age related cataracts bilateral not yet indicated for surgical intervention. Cardiology: March 19, 2022 [facility] cardiology Dr. Banda [...] as endo provider through [facility] last apr 2022 most recently was seen [...] of month. 2022 labs [facility] Urine microalbumin neg, lipid panel 108/217/33/32, alc 8%, cr 1.1 and gfr 81. Olvin wnlNlaisha diagnostic: polysommogram with cpap on 04/19/2022 at [facility] referred for non-restorative sleep. Found [...] pain and reported had injections monthly in [place]. He states he had injections of Toradol. Worse pain in his back and his spine does not support his upper body and he falls from side to side but no falls recently. Sister said issue with morphine and this was stopped. Moved from [place] in apr 2021 to be with son who has brain tumor. Ppt was never seen by a provider needed [place] pain management notes and did not offer medical management at this time. This note was written by an RN and it was just a call to the ppt. Awaiting notes from [place] pain management to go any further. Colonoscopy: ppt is unsure. I do not see anything in the last [address] [facility]. Will try to [...] for shingles vaccines, tdap, and flu in iwbx4Ua:Mind: AxOx4 can be forgetful mild cognitive impairment [...] sometimes praveena related to [place] living [place] middle age rdtsAuYs8YBSMRInzgbrr intact Pt has own teeth with no concerns Moist mucous membranesNo enlarged cervical lymph nodes, thyroid inspected with no nodules palpatedBilateral hand tremor restingLSCTA bilaterally Heart regular rate +s1 and +s2Abd soft, non tender, non distended, +rgy5Vwdurt gait Skin intactFeet well taken care for, [...] - appt pending Prescriber - Candace Hastings ([facility])No questions or concerns he is doing so much better reports a family memberHX OF COCCAINE/OPIOID ABUSEDenies current useHTNMetoprololBP 104/70 todayLabs later DM w/ [id number] - 7% (04/2022)Foot exam?Metformin, lantus, HumalogDoes not [...] to paul feetOrdered CBC, CMP today FUV Comments: Rogelio mo is a 56 year old male who is being seen today for a PHV. Pt was brought to [facility] on 01/25 for back pain. He [...] on referrals in placeAll questions answered. OV PEE Comments: Rogelio mo is a 56 [...] his 30s when he was living in [place]. He reported his ex- determined he had [...] is a good support along with his mandaen. -Currently denies any type of hallucinations or delusions. Denies wanting to hurt himself or anyone else. Denies SI. Both he and his sister feel he is the best he has been and in a stable place. Reports a little depressed as he wants to move to [place] but comes and goes. Follows with Candace Hastings [facility] for schizoaffective disorder bipolar type and [...] prnSW is working on getting ppt into [facility] therapyContinue to monitor Related to Schizoaffective [...] a good support and also Jehovah witness mandaen. No longer doing drugs for some time [...] the same as well as sister (in [place])denies any current useusing non opioid alternatives for chronic pain with sucess like gabapentin and cymbalta Related to Opioid dependence in remission no seizure activityN a wnl at [facility] depokote 375 bid with [...] s endo provider through [facility] last apr 2022 most recently was seen [...] care givergoal is to move down [place] to find out if had colonoscopy if [...] po lysommogram with cpap on 04/19/2022 at [facility] referred for non-restorative sleep. Found [...] notes from pts previous pain clinic in [facility].Pt does not want any aggressive measures nor wanting any narcotics d/t past hx of addition. Currently on cymbalta, gabapentin and voltaren, tylenol and recently went up on gabapentin. Reports pain controlled. Since pain clinic won't see him without [place] notes and unable to obtain and ppt reports controlled willl d/c referral ppt is okay with this. Related to Chronic bilateral low back pain without sciatica Chronic back pain r/ t multiple surgeries per pt. Pt has pain clinic referral though pain clinic is waiting for past notes from pts previous pain clinic in [facility].Pt does not want any aggressive measures nor wanting any narcotics d/t past hx of addition. Currently on cymbalta, gabapentin and voltaren, tylenol and recently went up on gabapentin. Reports pain controlled. Since pain clinic won't see him without [place] notes and unable to obtain and ppt [...] placed but unable to get notes from [place] and wont' see him. Reports currently pain controlled and does not need referral. Related to Cervical disc disease 10/26/[address] Sanjay finley from [facility] due to ongoing tremors affecting quality [...] gait and speech at times. However admitted [facility] 09/04-09/08 for syncope found [...] plan to do echo. Treadmill standard with [facility] on 09/2008 due to chest pain found [...] can result in this had admit [place] [facility] [place] for syncope, falls, dizziness found [...] pain and reported had injections monthly in [place]. He states he had injections of Toradol. Worse pain in his back and his spine does not support his upper body and he falls from side to side but no falls recently until today. Sister said issue with morphine and this was stopped. Moved from [place] in apr 2021 to be with son who has brain tumor. Ppt was never seen by a provider needed [place] pain management notes and did not offer [...] po lysommogram with cpap on 04/19/2022 at [facility] referred for non-restorative sleep. Found [...] pain mangement but didn't have records from [facility] so wouldn't see him per pptneuro can [...] opioids ie morphineppt enodrses the same (in [place])denies any current usewill re-eval for acute pain/surgical [...] s endo provider through [facility] last apr 2022 most recently was seen [...] of month. 2022 labs [facility] Urine microalbumin neg, lipid panel 108/217/33/32, alc 8%, cr 1.1 and gfr 81. Lytes wnlgoal alc less than 7% and discussed microvascular and macrovascular complications of uncontrolled dm Related to Type 2 diabetes mellitus with diabetic polyneuropathy, unspecified whether mcfp insulin use has seen urology in past [...] notes from pts previous pain clinic in [facility].Pt does not want any aggressive measures nor [...] notes from pts previous pain clinic in [facility].Pt does not want any aggressive measures nor [...] pain and reported had injections monthly in [place]. He states he had injections of Toradol. Worse pain in his back and his spine does not support his upper body and he falls from side to side but no falls recently. Sister said issue with morphine and this was stopped. Moved from [place] in apr 2021 to be with son who has brain tumor. Ppt was never seen by a provider needed [place] pain management notes and did not offer [...] po lysommogram with cpap on 04/19/2022 at [facility] referred for non-restorative sleep. Found [...] care givergoal [place] to [place] if had [place]oscopy if not due for oneno longer needs to see endo I can manage thatcontinue to follow with pysch Related to Healthcare maintenance bipolar well control led without symptoms just some mild sadness as he wants to move to [place] but reports he is happy most days [...] his 30s when he was living in [place]. He reported his ex- determined he had [...] depressed as he wants to move to [place] but comes and goes. -Continue: seroquel 100mg [...] dependance on opioidsppt enodrses the same (in [place])denies any current usewill re-eval for acute pain/surgical [...] exam benign except for decreased sensationref to adpnueciz3b and labs todayeval ongoing Related to Type 2 diabetes mellitus with diabetic polyneuropathy, with long-term current use of insulin last a1c 7.00using C GMsugars sometimes labile - may be d/t antipsychotic use continues on humalog, lantus, metforminfoot exam benign except for decreased sensationref to zplpnchjm5b and labs todayeval ongoing Related to longterm [...] cymbalta, seroq uel, trazodone, ziprasidone 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 He did not receive the medication nor notify [facility] until Tuesday that the pharmacy could not fill as they were out of stock . Ppt did tell SE he would be going back to [facility] for symptoms on 06/28/22 at 4:15p. [...] type, unspecified laterality, unspecified part of lung [facility] 05/29 Admitted for sepsis secondary to [...] for medical records from pain clinic in [place] Related to Opioid dependence, in remission He [...] prescribed and managed by psych. Related to longterm current use of antipsychotic medication Mild tremor [...] notes from pts previous pain clinic in [facility].Pt does not want any aggressive measures nor wanting any narcotics d/t past hx of addition. He is agreeable to wait for pain clinic. Related to Back pain, unspecified back location, unspecified back pain laterality, unspecified chronicity Pt had been diagnose d w/ bipolar and schizophrenia in his 30s when he was living in [place]. He reported his ex- determined he had [...] and made the following recommendations -Changed: insulin [id number]> 17unitsSTARTED lantus 24units in AMCONTINUE metformin 500mg BIDNeuropathy reported in paul feet; numbness and tingling.Abnormal monofilment exam, loss of protective sensation. Diabetic foot exam education. -Continue gabapentin-Education provided on new medications and daily feet checks. 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 Pt was brought to [facility] on 01/25 for back pain. He received 3 injections (1 in each arm and one in his left leg per sister). Today pt continues to complain of back pain. 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 -Has attempted suicide 2x in the past: cutting and cocaine overdose. Identifies his sister is a good support. Plan: drug screen Related to History of cocaine abuse History of T2DM [facility] age 34 being treated w/ [...] neck and spine. Last injection was in [place] 5 months ago. Pt reports 8/10 pain [...] be contributing. Related to Essential tremor Pt at first was hesi tant to open up about past traumas. 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 He reported his ex- determined he had [...] his 30s when he was living in [place]. He reported his ex- determined he had [...] of dose. Related to Bipolar 1 disorder BP 114/60-Currently taking metoprolol and lisinopril Related to Hypertension, unspecified type Per preenrollment re cords. Lipid panel ordered.-Currently taking [id number] daily Related to Hypercholesteremia History of T2DM [...]
== END 2025-02-22 08:40 | disposition home or self-care (01) ==
LOC: HO.HOSX 08:39
PROVIDERS: Visit Provider Physician Assistant
DX: M25.571 Pain in right ankle and joints of right foot (principal); S82.61XA Displaced fracture of lateral malleolus of right fibula, initial encounter for closed fracture
CPT/HCPCS: 27786; 73610; 99202

== ENCOUNTER 2025-02-22 09:40 | Outpatient (AMB) | payer MEDICARE, MEDICAID, SELFPAY ==
[2025-02-22 09:44] VITALS: BMI 24.3
--- NOTE | 2025-02-22 09:44 | A.OFFVIS_ITS ---
Vital Signs 02/22/25 09:44 Height 5 ft 8 in Weight 160 lb BMI 24.3 Intake Visit Reasons: FC- Right lateral malleolus fx DOI 02/03/25 Intake Note: Dylan is a 59 year old male who presents today for an ER follow up of right lateral malleolus fracture, DOI 02/03/25. Patient presented to [facility] after he sustained a fall at home. Per ER note patient became dizzy and blacked out, then woke up on the floor. X-rays were obtained which revealed a fracture and was placed in a posterior and stirrup splint. Today patient reports ongoing pain at the lateral aspect of ankle. Hisotry of repeat fractures, stating this is the 3rd time in the same place. Allergies No Known Allergies Allergy (Mild, Verified 02/22/25 10:00) NONE Medication List - Last Reconciled 02/22/25 by Rigo Candelario PA-C acetaminophen ER 650 mg PO TID PRN aspirin 81 mg PO DAILY diclofenac sodium 25 mg PO BID PRN divalproex 500 mg PO BID dulaglutide (Trulicity) 1.5 mg subcut TU duloxetine 60 mg PO DAILY enoxaparin (Lovenox) 40 mg subcut DAILY fluticasone propionate 50 mcg/actuation 1 spray intranasal BID PRN gabapentin 600 mg PO BID ibuprofen (Advil) 200 mg PO Q6H PRN insulin glargine (Lantus Solostar U-100 Insulin) 15 units (0.15 mL) subcut BEDTIME insulin lispro 0 sliding scale doses subcut TIDAC metformin 850 mg PO BIDWM metoprolol succinate ER 50 mg PO BEDTIME midodrine 2.5 mg PO BID omeprazole 40 mg PO DAILY@0630 oxycodone 5 mg PO Q4H PRN primidone 50 mg PO BEDTIME quetiapine 100 mg PO BEDTIME tamsulosin 0.4 mg PO BEDTIME tramadol 50 mg PO BEDTIME HPI HPI FC- Right lateral malleolus fx DOI 02/03/25: Details: 59-year-old gentleman presents to the office today for an injury he sustained to his right ankle on 02/03/2025. States he was at home when he became dizzy and fell. He noticed immediate pain and inability to weightbear on his right ankle therefore he was brought to the emergency department. X-rays revealed a minimally displaced distal fibular fracture. He was placed in a splint and transferred to a short-term rehab. He was referred to our office for ortho eval. [facility] Medical History Cocaine abuse History of tobacco abuse History of alcohol abuse Penile lump Urinary incontinence GERD (gastroesophageal reflux disease) Osteoarthritis Injury of right hand Syncope Tremor of both hands Chronic low back pain Type 2 diabetes mellitus Depression Bipolar 1 disorder Schizophrenia Surgical History H/O cervical spine surgery Elbow joint replacement status Family History Mother HTN (hypertension) Diabetes Alzheimer disease Father Diabetes HTN (hypertension) Schizophrenia PVD (peripheral vascular disease) CAD (coronary artery disease) Bipolar 1 disorder Social History Household Members: Family Household Members Other:: sister Housing: Apartment Do you presently have visiting nurse or other home services: Yes Patient Tobacco Use Status: Former Tobacco user Advance Directives Date on File: 09/04/23 service: No Current occupational status: unemployed Review of Systems Const All systems reviewed & are unremarkable except as noted in HPI and below Physical Exam Vital Signs: BMI result Body Mass Index 24.3 Const General: cooperative and no acute distress Orientation/consciousness: patient oriented x3 Resp Effort & Inspection: normal respiratory effort and able to speak in complete sentences Cardio Peripheral pulses: Peripheral pulses 2+ throughout Neuro General: patient oriented x3 Extrem Other: Right ankle is normal to inspection he does have diffuse swelling in the foot. Mild tenderness over the distal fibula. Pulses are present sensation intact. Office Procedures AMB Fracture Care Fracture Billing Code: Fracture Billing Code Casting/Splints 21947-[id number] Leg Cast Application Procedure code (CPT) selection complete Results Reviewed Results Reviewed: X-rays of the right ankle obtained in the office today and reviewed by me show minimally displaced distal fibular fracture. Ankle mortise intact. Assessment & Plan Assessment & Plan (1) Fracture of right ankle, lateral malleolus: Code(s): S82.61XA - Displaced fracture of lateral malleolus of right fibula, initial encounter for closed fracture Category: Medical Plan: I explained the extent of the injury to the patient. We will treat this nonoperatively with a cast. He was placed in a short-leg cast today. He will remain nonweightbearing for up to 6 weeks. I explained to the patient if there is any discomfort with the cast or becomes loose or painful he should contact our office for a cast change. Otherwise I will see him back in 4 weeks with cast off and new x-rays, sooner if needed. Orders: Orders XR ankle RT min 3V Today M25.571 - Pain in right ankle and joints of right foot Coding Level of Care Code New Pt Level 3 (22557) Complex EM visit Add On G2211 Diagnoses Fracture of right ankle, lateral malleolus S82.61XA CPT Codes Fracture Care - Fracture Billing Code: Fracture Billing Code ([id number]) Casting - CPT: 08416-Fvvgy Leg Cast Application ([id number])
--- OUTSIDE RECORDS SUMMARY | 2025-02-22 10:04 | XMS_ITS | Continuity of Care Document ---
Author Organization [facility] Address [address] [address] Phone Care Team Providers Care Try Out Person Name Role Phone Jer FREY, Ujjwala Unavailable [...] 08/31/2023 appt with psych amrit hastings from [facility] Lantus U-100 Insulin 100 unit/mL subcutaneous solution [...] Has been filled by Psych so far Smart Gardener Bebe 2 [place] use to read blood sugar QID - Active Advance Directives Directive Yes / No Effective Date File Name No Information Encounters Encounter Description Practice Location Reason(s) For Visit Diagnoses Date Provider [facility], [address] [facility] [address], [place], [place], [id number], [place] tel:[phone] [place] No Information Shreyas- 0-202 4 Jer Fletcherjjjanea. [address] [place], [place], [id number], [place]. tel:[phone] [facility], [address], [place], [place], [id number], [place] tel:[phone] [place] No Information January-2 4-202 4 Coon Ashlee. [address] [place], [place], [id number], [place]. tel:[phone] [facility], [address] [facility], [place], [place], [id number], [place] tel:[phone] [place] No Information January-2 3-202 4 Coon Ashlee. [address] [place], [place], [id number], [place]. tel:[phone] [facility], [address], [place], [place], [id number], [place] tel:[phone] [place] No Information Dec-3 0-202 4 Coon Ashlee. [address] [place], [place], [address], [place]. tel:[phone] [facility], [address] [facility], [place], [place], [id number], [place] tel:[phone] [place] No Information Dec-2 2-202 4 Coon Ashlee. [address] [place], [place], [id number], [place]. tel:[phone] [facility], [address], [place], [place], [id number], [place] tel:[phone] [place] No Information Dec-1 9-202 4 Coon Ashlee. [address] [place], [place], [id number], [place]. tel:[phone] [facility], [address], [place], [place], [id number], [place] tel:[phone] [place] No Information 4 Coon Ashlee. [address] [place], [place], [id number], [place]. tel:[phone] [facility], [address] [facility], [place], [place], [id number], [place] tel:[phone] [place] No Information [address] [facility], [id number], [place]. tel:[phone] [facility], [address] [address], [place], [place], [address], [place] tel:[phone] [place] No Information [address] [facility] [place], [id number], [place]. tel:[phone] [facility], [address] [facility], [place], [place], [id number], [place] tel:[phone] [place] Encounter for nutritional assessmentDiabetic nutritional counseling completed [address] [facility] [place], [id number], [place]. tel:[phone] [facility], [address] [address], [place], [place], [address], [place] tel:[phone] [place] No Information [address] [facility] [place], [address], [place]. tel:[phone] [facility], [address] [address], [place], [place], [address], [place] tel:[phone] [place] Muscle weakness (generalized) b0 [address] [facility] [place], [id number], [place]. tel:[phone] [facility], [address] [facility] [address], [place], [place], [address], [place] tel:[phone] [place] Difficulty in walkin g, not elsewhere classified [address] [facility] [place], [address], [place]. tel:[phone] [facility], [address] [facility], [place], [place], [address], [place] tel:[phone] [place] Muscle weakness (generalized) [address] [facility] [place], [address], [place]. tel:[phone] [facility], [address] [facility], [place], [place], [address], [place] tel:[phone] [place] Encounter for rehabilitation evaluation 4 Brianna Brower. [address], [place], [place], [address], [place]. tel:[phone] [facility], [address] [facility] [address], [place], [place], [address], [place] tel:[phone] [place] Semi-Annua l (chief complaint) cont (chief complaint) Type 2 diabetes mellitus with diabetic polyneuropathy, unspecified whether prison insulin useCurrent use of insulinSeizureOpioid dependence in remissionHistory of cocaine abusePTSD (post-traumatic stress disorder)Schizoaffectiv e disorder, bipolar typeHypercholesteremiaH ypertension, unspecified typeOrthostatic hypotensionEssential tremorCervical disc diseaseChronic bilateral low back pain without sciaticaOther chronic painObstructive sleep apneaDysautonomiaMer[facility] Health [facility] care maintenance 4 Shaggy Rosado. [address] [place], [place], [id number], [place]. tel:[phone] [facility], [address] [facility] [address] [facility], [place], [place], [address], [place] tel:[phone] [place] No Information 4 Coonbridgett Rosado. [address] [place], [place], [id number], [place]. tel:[phone] [facility], [address], [place], [place], [address], [place] tel:[phone] [place] No Information 4 Jake Hoffman. [address] [place], [place], [id number], [place]. tel:[phone] [facility], [address], [place], [place], [address], [place] tel:[phone] [place] Difficulty in walkin g, not elsewhere classified [address] Caraballo[address] [place], [place], [address], [place]. tel:[phone] [facility], [address], [place], [place], [address], [place] tel:[phone] [place] Difficulty in walkin g, not elsewhere classified [address] Caraballo[address] [place], [place], [address], [place]. tel:[phone] [facility], [address], [place], [place], [address], [place] tel:[phone] [place] Encounter for rehabilitation evaluationDifficulty in walking, not elsewhere classified [address] Caraballo[address], [place], [place], [address], [place]. tel:[phone] [facility], [address], [place], [place], [address], [place] tel:[phone] [place] No Information 3 Shaggy Rosado. [address] [place], [place], [address], [place]. tel:[phone] [facility], [address], [place], [place], [address], [place] tel:[phone] [place] Muscle weakness (generalized) Aug- 3 [address] Caraballo. [address] [place], [place], [id number], [place]. tel:[phone] [facility], [address], [place], [place], [address], [place] tel:[phone] [place] Other abnormalities of gait and mobility [address] Caraballo[address], [place], [place], [address], [place]. tel:[phone] [facility], [address], [place], [place], [address], [place] tel:[phone] [place] No Information 3 Shaggy Rosado. [address] [place], [place], [address], [place]. tel:[phone] [facility], [address], [place], [place], [address], [place] tel:[phone] [place] No Information 3 Shaggy Rosado. [address] [place], [place], [address], [place]. tel:[phone] [facility], [address], [place], [place], [address], [place] tel:[phone] [place] Difficulty in walkin g, not elsewhere classified [address] Caraballo[address] [place], [place], [id number], [place]. tel:[phone] [facility], [address], [place], [place], [address], [place] tel:[phone] [place] Difficulty in walkin g, not elsewhere classified [address] Caraballo[address] [place], [place], [id number], [place]. tel:[phone] [facility], [address] [facility], [place], [place], [id number], [place] tel:[phone] [place] Acute Visit (chief complaint) Essential tremorObstructive sleep apneaOrthostatic hypotensionOther chronic pain 3 Shaggy Rosado. [address] [place], [place], [address], [place]. tel:[phone] [facility], [address] [facility], [place], [place], [address], [place] tel:[phone] [place] Difficulty in walkin g, not elsewhere classified [address] Caraballo[address] [place], [place], [address], [place]. tel:[phone] [facility], [address] [facility], [place], [place], [address], [place] tel:[phone] [place] Difficulty in walkin g, not elsewhere classified [address] Rashmi[address] [place], [place], [address], [place]. tel:[phone] [facility], [address] [facility], [place], [place], [address], [place] tel:[phone] [place] Encounter for rehabilitation evaluation 3 [address] Rashmi[address] [place], [place], [id number], [place]. tel:[phone] [facility], [address] [facility], [place], [place], [address], [place] tel:[phone] [place] No Information 3 Danny Hodges. [address] [place], [place], [address], [place]. tel:[phone] [facility], [address] [facility] [address] [address], [place], [place], [address], [place] tel:[phone] [place] Semi-Annua l (chief complaint) Schizophrenia, unspecified typeBipolar 1 disorderHealthcare maintenanceObstructive sleep apneaEssential tremorChronic pain syndromeCervical disc diseaseSeizureHyperchol esteremiaChronic bilateral low back pain, unspecified whether sciatica presentOther chronic painErectile dysfunction, unspecified erectile dysfunction typeUrinary incontinence, unspecified typeType 2 diabetes mellitus with diabetic polyneuropathy, unspecified whether prison insulin useCurrent use of insulinPrimary hypertensionOpioid dependence in remissionHistory of cocaine abusePTSD (post-traumatic stress disorder) [address] [facility] [place], [place], [place], [id number], [place]. tel:[phone] [facility], [address] [facility], [place], [place], [address], [place] tel:[phone] [place] Encounter for nutritional assessmentAt risk for inadequate oral intakeDiabetic nutritional counseling completed 3 Pelon Tucker. [address] [place], [place], [id number], [place]. tel:[phone] [facility], [address] [facility] [address], [place], [place], [address], [place] tel:[phone] [place] Dorsalgia, unspecified 3 Bhagavatula Uclaricejwala. [address] [facility] [place], [place], [place], [address], [place]. tel:[phone] [facility], [address] [facility], [place], [place], [address], [place] tel:[phone] [place] Encounter for genera l adult medical examination without abnormal findings 3 Robert Johnson. [address] [place], [place], [id number], [place]. tel:[phone] [facility], [address] [facility] [address], [place], [place], [address], [place] tel:[phone] [place] Type 2 diabetes mellitus with other skin complications [address] [facility] [place], [id number], [place]. tel:[phone] [facility], [address], [place], [place], [address], [place] tel:[phone] [place] Other chest pain 3 Robert Johnson. [address] [place], [place], [address], [place]. tel:[phone] [facility], [address] [facility] [address], [place], [place], [address], [place] tel:[phone] [place] Encounter for nutritional assessmentDiabetes education, encounter forExcessive carbohydrate intakeAt risk for inadequate oral intake [address] [facility] [place], [id number], [place]. tel:[phone] [facility], [address] [facility] [address], [place], [place], [address], [place] tel:[phone] [place] Other chronic pain [address] [facility] [address], [place], [place], [address], [place]. tel:[phone] [facility], [address] [facility] [address], [place], [place], [address], [place] tel:[phone] [place] Encounter for rehabilitation evaluation [address] [facility] [place], [address], [place]. tel:[phone] [facility], [address], [place], [place], [address], [place] tel:[phone] [place] Encounter for rehabilitation evaluation [address] [facility] [place], [address], [place]. tel:[phone] [facility], [address], [place], [place], [address], [place] tel:[phone] [place] FATOU (chief complaint) Schizophrenia, unspecified typeBipolar 1 disorderLong term current use of antipsychotic medicationHistory of cocaine abuseHypertension, unspecified typeHypercholesteremiaT ype 2 diabetes mellitus with diabetic polyneuropathy, with long-term current use of insulinLong term (current) use of insulinEssential tremorSeizureLong term (current) use of oral hypoglycemic drugsOpioid dependence, in remission 3 Robert Alex. [address] [place], [place], [id number], [place]. tel:[phone] [facility], [address] [facility] [address], [place], [place], [address], [place] tel:[phone] [place] No Information 2 Danny Hodges. [address] [place], [place], [address], [place]. tel:[phone] [facility], [address] [facility], [place], [place], [address], [place] tel:[phone] [place] Muscle weakness (generalized) 2 Kirsten Kip. [address] [place], [address]. tel:[phone] [facility], [address], [place], [place], [address], [place] tel:[phone] [place] PHV (chief complaint) [facility] current use of antipsychotic medicationAspiration pneumonia, unspecified aspiration pneumonia type, unspecified laterality, unspecified part of lung 2 Os Crissy. [address] [place], [place], [address], [place]. tel:[phone] [facility], [address] [facility] [place] [address], [id number], [place] tel:[phone] [place] No Information 2 Danny Hodges. [address] [place], [place], [id number], [place]. tel:[phone] [facility], [address] [facility], [place], [place], [address], [place] tel:[phone] [place] Muscle weakness (generalized) 2 Kirsten Kip. [address] [place], [address]. tel:[phone] [facility], [address] [facility] [address], [place], [place], [address], [place] tel:[phone] [place] Muscle weakness (generalized) 2 Kirsten Kip. [address] [place], [address]. tel:[phone] [facility], [address] [facility], [place], [place], [address], [place] tel:[phone] [place] No Information 2 Os Crissy. [address] [place], [place], [address], [place]. tel:[phone] [facility], [address] [facility], [place], [place], [address], [place] tel:[phone] [place] Hemiplegia and hemiparesis following unspecified cerebrovascular disease affecting right non-dominant sideMuscle weakness (generalized) 2 Kirsten Kip. [address] [place], [address]. tel:[phone] [facility], [address] [facility], [place], [place], [address], [place] tel:[phone] [place] Diabetes education, encounter forEncounter for nutritional assessmentExcessive carbohydrate intake 2 Normile Caitlin. [address] [place], [place], [address], [place]. 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 [address] [place], [place], [address], [place]. tel:[phone] [facility], [address] [facility], [place], [place], [address], [place] tel:[phone] [place] Extraction of tooth needed 2 Os Crissy. [address] [place], [place], [address], [place]. tel:[phone] [facility], [address] [facility] [address], [place], [place], [address], [place] tel:[phone] [place] Muscle weakness (generalized) 2 Kirsten Kip. [address] [place], [address]. tel:[phone] [facility], [address] [facility] [address], [place], [place], [address], [place] tel:[phone] [place] Muscle weakness (generalized) 2 Kirsten Kip. [address], [place], [address]. tel:[phone] [facility], [address] [facility], [place], [place], [address], [place] tel:[phone] [place] Obstructive sleep apnea 2 Os Crissy. [address] [place], [place], [address], [place]. tel:[phone] [facility], [address] [facility] [address], [place], [place], [address], [place] tel:[phone] [place] Difficulty in walkin g, not elsewhere classified 2 Kirsten Kip. [address] [place], [address]. tel:[phone] [facility], [address] [facility], [place], [place], [address], [place] tel:[phone] [place] Other chronic pain 2 Danny Carroll. [address] [place], [place], [address], [place]. tel:[phone] [facility], [address] [facility], [place], [place], [address], [place] tel:[phone] [place] Type 2 diabetes mellitus with diabetic polyneuropathy, unspecified whether prison insulin use 2 Os Crissy. [address] [place], [place], [address], [place]. tel:[phone] [facility], [address] [facility] [address] [facility], [place], [place], [address], [place] tel:[phone] [place] FUV (chief complaint) Edema, unspecified type 2 Os Crissy. [address] [place], [place], [address], [place]. tel:[phone] [facility], [address] [facility], [place], [place], [address], [place] tel:[phone] [place] PHV (chief complaint) Back pain, unspecified back location, unspecified back pain laterality, unspecified chronicity 2 Os Crissy. [address] [place], [place], [address], [place]. tel:[phone] [facility], [address] [facility], [place], [place], [address], [place] tel:[phone] [place] OV (chief complaint) Current use of insulinFall, initial encounterType 2 diabetes mellitus without complication, with long-term current use of insulin 2 Os Crissy. [address] [place], [place], [address], [place]. tel:[phone] [facility], [address] [facility], [place], [place], [address], [place] tel:[phone] [place] No Information 2 Os Crissy. [address] [place], [place], [address], [place]. tel:[phone] [facility], [address] [facility], [place], [place], [address], [place] tel:[phone] [place] Type 2 diabetes mellitus with diabetic polyneuropathy, unspecified whether prison insulin use 2 Os Crissy. [address] [place], [place], [address], [place]. tel:[phone] [facility], [address] [facility], [place], [place], [address], [place] tel:[phone] [place] Encounter for nutritional assessmentAbnormal weight lossDiabetes education, encounter for 2 Normile Caitlin. [address] [place], [place], [address], [place]. 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 [address] [place], [place], [address], [place]. tel:[phone] [facility], [address] [facility], [place], [place], [address], [place] tel:[phone] [place] Encounter for rehabilitation evaluation 2 Kirsten Shin. [address], [place], [address]. tel:[phone] [facility], [address] [facility] [address], [place], [place], [address], [place] tel:[phone] [place] Encounter for rehabilitation evaluationDifficulty in walking, not elsewhere classifiedAlteration in performance of activities of daily living 2 Deirdre Garcia Zenobia Leonard. [address] [place], [place], [address]. tel:[phone] [facility], [address] [facility] [address], [place], [place], [address], [place] tel:[phone] [place] Encounter for genera l adult medical examination without abnormal findings 2 Jeffrey Robins. [address], [place], [place], [address], [place]. tel:[phone] [facility], [address] [facility] [address], [place], [place], [address], [place] tel:[phone] [place] No Information 2 Aria Chambers. [address] [place], [address], [place]. tel:[phone] Family History Family Member Type Diagnosis Age At Onset Mother Problem Diabetes mellitus Father Problem Heart disease Immunizations Vaccine Date Status Comments Zoster recombinant subunit administered S ource: New Immunization Record Flu-IIV4, p-free administered Source: Ot er Registry COVID-19 Pfizer Bivalent 12y+ administere d Source: Other Registry Fluzone Quad administered [facility] e: New Immunization Record Prevnar 13 administered Source: New Imm unization Record Fluzone Quad [id number] administered Note: Got influenza vaccine same day as COVID ; Source: Other Registry COVID-19 (Pfizer) administered Source: Ot [facility] Provider COVID-19 (Pfizer) administered Source: Ot her Provider Payers Payer name Insurance type Covered constitution party ID Keiko berman(abiel) [facility] 16 [id number] [facility] 16 [id number] [facility] 16 [id number] [facility] 16 [id number] Social History Type Description Quantity Date Captured Comments Sex Male Smoking Status No Information Chief Complaint And Reason For Visit No Information Plan Of Treatment Date Type Action Status Referral Ordered: Referrals: Neurology. Location: [facility] Appointment date/timeframe: 10/26/2023 ordered Referral Ordered: Referrals: Cardiology. Location: [facility]. Consult Appointment date/timeframe: 02/28/2024 ordered Referral Ordered: Referrals: Pain Medicine. Consult ordered Referral Ordered: Referrals: Gastroenterology Appointment date/timeframe: 03/08/2023 ordered Referral Ordered: Referrals: [facility] [place] [facility] [place] and treat ordered Referral Ordered: Referrals: Podiatry Appointment date/timeframe: 11/29/2022 ordered Referral Ordered: Referrals: Storage Manager Appointment date/timeframe: 01/18/2023 ordered Referral Referred To: [...] 2D image, spectral Doppler, color flow image ([id number]), Ordered on: Ordered Future Order: Radiology Order Po lysomnography, 4+ add'l params (97304), Ordered on: Ordered History Of Present Illness Encounter Date Complaint History Of Prese nt Illness Semi-Annual Patient was seen today for their Semiannual at the office accompanied by sister who is paid rn wound care. Marquise is known for cancelling or not showing up for appts and had cancelled this appt multiple times and had to be reminded the importance of coming into appts so we can take care of him. Maruqise enrolled at in 10/2021. Marquise lives with his sister/paid rn wound care and son who his sister and himself take care of in a first floor appt in [place]. The main goal of marquise and his sister is to move to [place] to the sun[place] and get away from the cold and meet up with family down there. This has been a goal for some time but has not come to fruition. The family will be going to [place] for 2 weeks of vacation and the [...] have orthostasis. No falls in last month. [facility] 09/04- presented for frequent falls at [...] rain, snow and wants to move to [place]. Intermittent chest pressure/burning and dizziness/sweating when going up or down the stairs that goes away when sitting down. Ppt being worked up by neuro and cards recent hospitalization for syncope and dizziness due to orthostasis. Worried about his tremors and worried has parkinsons saw neuro today. ADLs/services: Sister is paid rn wound care and helps with meals, drives ppt to [...] this. Mental Health: Follows with Candace Hastings [facility] for schizoaffective disorder bipolar type and used [...] has his own teeth and follows with [facility] last seen 05/16/2023 when he had a filling done however this was not scanned in. Denies issues with chewing or swallowing. Had a prior tooth extraction in may 2022. Currently no issues will assess follow up at next semi unless issues. Ophthalmology: Follows with [facility] optometry seen 12/2022 ordered bifocals for presbyopia, age related cataracts bilateral not yet indicated for surgical intervention. Will need follow up at next semi. Cardiology: March 19, 2022 [facility] cardiology Dr. Banda for HTN had been [...] wall motion.Endocrinology: I actually saw [facility] as endo provider through [facility] last apr 2022 most recently was seen [...] : polysommogram with cpap on 04/19/2022 at [facility] referred for non-restorative sleep. Found [...] pain and reported had injections monthly in [place]. He states he had injections of Toradol. Worse pain in his back and his spine does not support his upper body and he falls from side to side but no falls recently. Sister said issue with morphine and this was stopped. Moved from [place] in apr 2021 to be with son who has brain tumor. Ppt was never seen by a provider needed [place] pain management notes and did not offer medical management at this time. This note was written by an RN and it was just a call to the ppt. Awaiting notes from [place] pain management to go any further. Currently [...] anything in the last 5 years at [facility]. Referral placed awaiting for colonoscopy. Dexa: Has [...] given shingles vaccines today and due for gpsc8Vb:Mind: AxOx4 can be forgetful mild cognitive impairment moca in 10/2021 not reflective of cognitive ability, very independantMeds: sister helps with meds but makes him do it while supervises so he knows how to do itMobility: independentMM: Ppt wants to move to [place] and is his main goal. ROSDenies fever [...] sometimes praveena related to not living in [place]. Does not like the cold. Does still [...] and +s2Abd soft, non tender, non distended, +hem2Yuzymx gait Skin intactFeet well taken care for, [...] no nystagmusMAE=strongLSCTA bilaterallyheart rate regular +s1 and +q7jewzdojmv hand tremors moderate at rest and when [...] home accompanied by sister who is paid rn wound care. We have made multiple attempts to get ppt to come into site and call but no one picked up. Discussed with paid rn wound care that she needs to be available by phone. She checked her phone to make sure there was nothing wrong. She reported she never got any calls. We verified her number along with ppt. Ppt FATOU was due a week earlier but never showed up multiple times and then there was two provider changes. This is my first time meeting [facility] as new pcp. Ppt enrolled at in 10/2021. Ppt lives with his sister/paid rn wound care and son in an first floor appt in [place]. HHN will be getting VS as not done today due to equipment errorNo recent hospitalization, SNFs or falls per ppt, collective and [facility] review in the last year.Complaints/concerns: No real concerns. Sister feels ppt is a little down however ppt reports he just wishes he was living in [place] and that is his goal. ADLs/services: Sister is paid rn wound care and helps with meals, drives ppt to [...] has his own teeth and follows with [facility] last seen 05/16/2023 when he had a filling done. Denies issues with chewing or swallowing.Ophthalmology: Follows with [facility] optometry seen 12/2022 ordered bifocals for presbyopia, age related cataracts bilateral not yet indicated for surgical intervention. Cardiology: March 19, 2022 [facility] cardiology Dr. Banda for HTN had been [...] actually saw ppt as endo provider through [facility] last apr 2022 most recently was seen [...] do at end of month. 2022 labs [facility] Urine microalbumin neg, lipid panel 108/217/33/32, alc 8%, cr 1.1 and gfr 81. Olvin wnlNlaisha diagnostic: polysommogram with cpap on 04/19/2022 at [facility] referred for non-restorative sleep. Found [...] pain and reported had injections monthly in [place]. He states he had injections of Toradol. Worse pain in his back and his spine does not support his upper body and he falls from side to side but no falls recently. Sister said issue with morphine and this was stopped. Moved from [place] in apr 2021 to be with son who has brain tumor. Ppt was never seen by a provider needed [place] pain management notes and did not offer medical management at this time. This note was written by an RN and it was just a call to the ppt. Awaiting notes from [place] pain management to go any further. Colonoscopy: ppt is unsure. I do not see anything in the last 5 years at [facility]. Will try to find if he has [...] for shingles vaccines, tdap, and flu in zwzf4Ch:Mind: AxOx4 can be forgetful mild cognitive impairment [...] sometimes praveena related to [place] living [place] middle age amdxGsNk4YMETELpnoldd intact Pt has own teeth with no concerns Moist mucous membranesNo enlarged cervical lymph nodes, thyroid inspected with no nodules palpatedBilateral hand tremor restingLSCTA bilaterally Heart regular rate +s1 and +s2Abd soft, non tender, non distended, +ami8Amvjth gait Skin intactFeet well taken care for, [...] - appt pending Prescriber - Candace Hastings ([facility])No questions or concerns he is doing so much better reports a family memberHX OF COCCAINE/OPIOID ABUSEDenies current useHTNMetoprololBP 104/70 todayLabs later DM w/ [id number] - 7% (04/2022)Foot exam?Metformin, lantus, HumalogDoes not [...] injections- pt cant go until records form [place] get to pain clinic-Pysch: referral in place- [...] for a PHV. Pt was brought to [facility] on 01/25 for back pain. He [...] is a good support along with his hindu. -Currently denies any type of hallucinations or delusions. Denies wanting to hurt himself or anyone else. Denies SI. Both he and his sister feel he is the best he has been and in a stable place. Reports a little depressed as he wants to move to [place] but comes and goes. Follows with Candace Hastings [facility] for schizoaffective disorder bipolar type and [...] prnSW is working on getting ppt into [facility] therapyContinue to monitor Related to Schizoaffective [...] a good support and also Jehovah witness hindu. No longer doing drugs for some time [...] the same as well as sister (in [place])denies any current useusing non opioid alternatives for chronic pain with sucess like gabapentin and cymbalta Related to Opioid dependence in remission no seizure activityN a wnl at [facility] depokote 375 bid with valporic acid level [...] saw ppt a s endo provider through [facility] last apr 2022 most recently was seen [...] diabetes mellitus with diabetic polyneuropathy, unspecified whether prison insulin use wants cpr but dni wh ich doesn't make sense but does not want to change anything. Ppt is his own person and educated.lives with sister who is hcp proxy and paid care givergoal [place] if had colonoscopy if [...] po lysommogram with cpap on 04/19/2022 at [facility] referred for non-restorative sleep. Found [...] notes from pts previous pain clinic in [facility].Pt does not want any aggressive measures nor wanting any narcotics d/t past hx of addition. Currently on cymbalta, gabapentin and voltaren, tylenol and recently went up on gabapentin. Reports pain controlled. Since pain clinic won't see him without [place] notes and unable to obtain and ppt reports controlled willl d/c referral ppt is okay with this. Related to Chronic bilateral low back pain without sciatica Chronic back pain r/ t multiple surgeries per pt. Pt has pain clinic referral though pain clinic is waiting for past notes from pts previous pain clinic in [facility].Pt does not want any aggressive measures nor wanting any narcotics d/t past hx of addition. Currently on cymbalta, gabapentin and voltaren, tylenol and recently went up on gabapentin. Reports pain controlled. Since pain clinic won't see him without [place] notes and unable to obtain and ppt reports controlled willl d/c referral ppt is okay with this. Related to Other chronic pain I have deterioratio n of my spine like my father he reported. He reports he had been getting monthly injections in his neck and spine. Last injection was in [place].Pt reports chronic pain in his back. He [...] placed but unable to get notes from [place] and wont' see him. Reports currently pain controlled and does not need referral. Related to Cervical disc disease 10/26/[address] Sanjay finley from [facility] due to ongoing tremors affecting quality [...] gait and speech at times. However admitted [facility] 09/04-09/08 for syncope found to have orthostasis [...] plan to do echo. Treadmill standard with [facility] on 09/2008 due to chest pain [...] can result in this had admit to [facility] in aug for syncope, falls, dizziness found [...] pain and reported had injections monthly in [place]. He states he had injections of Toradol. Worse pain in his back and his spine does not support his upper body and he falls from side to side but no falls recently until today. Sister said issue with morphine and this was stopped. Moved from [place] in apr 2021 to be with son who has brain tumor. Ppt was never seen by a provider needed [place] pain management notes and did not offer medical management at this time. This note was written by an RN and it was just a call to the ppt. Awaiting notes from [place] pain management to go any further. on [...] po lysommogram with cpap on 04/19/2022 at [facility] referred for non-restorative sleep. Found [...] pain mangement but didn't have records from [facility] so wouldn't see him per pptneuro [...] troy call to make another appt. PHQ2=0 currenclaudio. Still awaiting therapist referral is in. denies [...] psych Related to PTSD (post-traumatic stress disorder) no current useno que stions or concerns from patient or family present Related to History of cocaine abuse Records indicate pas t dependance on opioids ie morphineppt enodrses the same (in [place])denies any current usewill re-eval for acute pain/surgical needswould consider non opioid alternatives if needed Related to Opioid dependence in remission due to equiptment er ror no bp [...] saw ppt a s endo provider through [facility] last apr 2022 most recently was seen [...] do at end of month. 2022 labs [facility] Urine microalbumin neg, lipid panel 108/217/33/32, alc 8%, cr 1.1 and gfr 81. Lytes wnlgoal alc less than 7% and discussed microvascular and macrovascular complications of uncontrolled dm Related to Type 2 diabetes mellitus with diabetic polyneuropathy, unspecified whether prison insulin use has seen urology in past [...] notes from pts previous pain clinic in [facility].Pt does not want any aggressive measures nor wanting any narcotics d/t past hx of addition. He is agreeable to wait for pain clinic. Currently on cymbalta, gabapentin and voltaren, tylenol Related to Other chronic pain Chronic back pain r/ t multiple surgeries per pt. Pt has pain clinic referral though pain clinic is waiting for past notes from pts previous pain clinic in [facility].Pt does not want any aggressive measures nor wanting any narcotics d/t past hx of addition. He is agreeable to wait for pain clinic. Currently on cymbalta, gabapentin and voltaren, tylenol Related to Chronic bilateral low back pain, unspecified whether sciatica present 2022 [facility] lipid panel 108/217/33/32continue crestor [...] pain and reported had injections monthly in [place]. He states he had injections of Toradol. Worse pain in his back and his spine does not support his upper body and he falls from side to side but no falls recently. Sister said issue with morphine and this was stopped. Moved from [place] in apr 2021 to be with son who has brain tumor. Ppt was never seen by a provider needed [place] pain management notes and did not offer medical management at this time. This note was written by an RN and it was just a call to the ppt. Awaiting notes from [place] pain management to go any further. on [...] po lysommogram with cpap on 04/19/2022 at [facility] referred for non-restorative sleep. Found [...] care givergoal is to [place] if had [place]oscopy if not due for oneno longer needs to see endo I can manage thatcontinue to follow with pysch Related to Healthcare maintenance bipolar well control led without symptoms just some mild sadness as he wants to move to [place] but reports he is happy most days [...] depressed as he wants to move to [place] but comes and goes. -Continue: seroquel 100mg [...] dependance on opioidsppt enodrses the same (in [place])denies any current usewill re-eval for acute pain/surgical [...] exam benign except for decreased sensationref to tfofsakcc5y and labs todayeval ongoing Related to Type 2 diabetes mellitus with diabetic polyneuropathy, with long-term current use of insulin last a1c 7.00using C GMsugars sometimes labile - may be d/t antipsychotic use continues on humalog, lantus, metforminfoot exam benign except for decreased sensationref to mcgciodnj6x and labs todayeval ongoing Related to [facility] (current) use of insulin continues on STATIN [...] seroq uel, trazodone, ziprasidone 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 He did not receive the medication nor notify [facility] until Tuesday that the pharmacy could not fill as they were out of stock . Ppt did tell SE he would be going back to [facility] for symptoms on 06/28/22 at 4:15p. [...] type, unspecified laterality, unspecified part of lung [facility] 05/29 Admitted for sepsis secondary to likely aspiration pneumonia in the setting of extrapyramidal symptoms from Antipsychotics. He was given ceftriaxone, doxycycline sepsis resolved and was discharged home on 7 more days of augmentin.Medication changes:Antipsychotics have been prescribed by Jeremias Vizcarra's office-Seroquel 100mg at bedtime-Depakote DR 375mg BID Related to [facility] current use of antipsychotic medication Pt reports [...] for medical records from pain clinic in [place] Related to Opioid dependence, in remission Chronic back pain r/ t multiple surgeries per pt. Pt has pain clinic referral though pain clinic is waiting for past notes from pts previous pain clinic in [facility].Pt does not want any aggressive [...] prescribed and managed by psych. Related to [facility] current use of antipsychotic medication Pt at [...] taking his medication from previous PCP in [place]). He had been referred to a therapist [...] and made the following recommendations -Changed: insulin -143 [id number]> 17unitsSTARTED lantus 24units in AMCONTINUE metformin 500mg BIDNeuropathy reported in paul feet; numbness and tingling.Abnormal monofilment exam, loss of protective sensation. Diabetic foot exam education. -Continue gabapentin-Education provided on new medications and daily feet checks. Related to Type 2 diabetes mellitus with diabetic polyneuropathy, unspecified whether prison insulin use No symptoms reported at this [...] and made the following recommendations -Changed: insulin [id number]> 17unitsSTARTED lantus 24units in AMCONTINUE metformin 500mg [...] diabetes mellitus with diabetic polyneuropathy, unspecified whether prison insulin use Discussed during las t visit [...] a PHV . Pt was brought to [facility] on 01/25 for back pain. He received 3 injections (1 in each arm and one in his left leg per sister). Today pt continues to complain of back pain. Pt had been going to pain clinic when he was living in [place] and reported relief w/ injections.Plan: Discussed trying [...] Current use of insulin History of T2DM [facility] age 34 being treated w/ [...] mellitus with diabetic polyneuropathy, unspecified whether terminal makeup operator insulin use Denied cocaine abuse early in our conversation though then discussed cocaine use for a suicide attempt. -Has attempted suicide 2x in the past: cutting and cocaine overdose. Identifies his sister is a good support. Plan: drug screen Related to History of cocaine abuse History of T2DM [facility] age 34 being treated w/ [...] diabetes mellitus with diabetic polyneuropathy, unspecified whether prison insulin use I have deterieratio n of [...] referral Related to Opioid dependence, in remission Per preenrollment re cords. Evident on exam. Pt reports tremor has been noted since living in [place]. Treated w/ primidone.He is on several psychiatric [...] clinic referral Related to Chronic pain syndrome I have deterieratio n of my spine [...] clinic referral Related to Cervical disc disease ED treated w/ a IPP 10 years ago. He takes testosterone injections monthly though has not taken since leaving [place] 5 months ago. Discussed referring back to [...] taking his medication from previous PCP in [place]). He had been referred to a therapist [...] taking his medication from previous PCP in [place]). He had been referred to a therapist [...] taking his medication from previous PCP in [place]). -Continue: seroquel 200mg at bedtime ziprasidone 80mg at bedtime, fluoxetine 60mg daily, primodone 50mg daily, trazodone 10mg daily, and depakote 1000mg daily. 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 He had been referred to a therapist [...] of dose. Related to Schizophrenia, unspecified type BP 114/60-Currently taking metoprolol and lisinopril Related to Hypertension, unspecified type Per preenrollment re cords. Lipid panel ordered.-Currently taking [id number] daily Related to Hypercholesteremia History of T2DM [...] Health Concern Goal Type Priority Status Date Dlyan is at risk for falls due to [...]
== END 2025-02-22 11:09 | disposition home or self-care (01) ==
LOC: HO.HOS 09:41
PROVIDERS: Visit Provider Physician Assistant
DX: S82.61XA Displaced fracture of lateral malleolus of right fibula, initial encounter for closed fracture (principal)
CPT/HCPCS: 27786; 99203; G2211

== ENCOUNTER → 2025-02-22 09:45 | Outpatient (BNV) | payer MEDICARE, MEDICAID, SELFPAY | PROVIDERS: Visit Provider Radiology Diagnostic Radiology | DX: M25.571 Pain in right ankle and joints of right foot (principal); S82.61XA Displaced fracture of lateral malleolus of right fibula, initial encounter for closed fracture | CPT/HCPCS: 73610 ==

== ENCOUNTER 2025-03-25 07:10 | Outpatient (REF) | payer MEDICARE, MEDICAID, SELFPAY ==
--- OUTSIDE RECORDS SUMMARY | 2024-03-05 05:14 | XMS_ITS | Continuity of Care Document ---
Author Organization [facility] Address [address] [address] Phone Care Team Providers Care Master Automotive Technician Name Role Phone Jer FREY, Ujjwala Unavailable [...] 08/31/2023 appt with psych amrit hastings from [facility] Lantus U-100 Insulin 100 unit/mL subcutaneous [...] Has been filled by Psych so far [id number] Bebe 2 [place] use to read blood sugar QID - Active Advance Directives Directive Yes / No Effective Date File Name No Information Encounters Encounter Description Practice Location Reason(s) For Visit Diagnoses Date Provider [facility], [address] [facility] [address], [place], [place], [id number], [place] tel:[phone] Ashley No Information Shreyas- 0-202 4 Jer Fletcherjjjanea. [address] [place], [place], [id number], [place]. tel:[phone] [facility], [address], [place], [place], [id number], [place] tel:[phone] Ashley No Information January-2 4-202 4 Coon Ashlee. [address] [place], [place], [id number], [place]. tel:[phone] [facility], [address] [facility], [place], [place], [id number], [place] tel:[phone] Ashley No Information January-2 3-202 4 Coon Ashlee. [address] [place], [place], [address], [place]. tel:[phone] [facility], [address], [place], [place], [id number], [place] tel:[phone] Ashley No Information Dec-3 0-202 4 Coon Ashlee. [address] [place], [place], [id number], [place]. tel:[phone] [facility], [address] [facility] [address], [place], [place], [address], [place] tel:[phone] Ashley No Information Dec-2 2-202 4 Coon Ashlee. [address] [place], [place], [address], [place]. tel:[phone] [facility], [address], [place], [place], [id number], [place] tel:[phone] Ashley No Information Dec-1 9-202 4 Coon Ashlee. [address] [place], [place], [address], [place]. tel:[phone] [facility], [address], [place], [place], [id number], [place] tel:[phone] Ashley No Information 4 Coon Ashlee. [address] [place], [id number], [place]. tel:[phone] [facility], [address] [facility], [place], [place], [id number], [place] tel:[phone] Ashley No Information 4 Pitsiladis Adelina. [address] [facility] [place], [id number], [place]. tel:[phone] [facility], [address] [address], [place], [place], [id number], [place] tel:[phone] Ashley No Information 4 Coon Ashlee. [address] [facility] [place], [address], [place]. tel:[phone] [facility], [address] [facility], [place], [place], [id number], [place] tel:[phone] Ashley Encounter for nutritional assessmentDiabetic nutritional counseling completed 4 Normile Caitlin. [address] [facility] [place], [id number], [place]. tel:[phone] [facility], [address] [address], [place], [place], [address], [place] tel:[phone] Ashley No Information 4 Coon Ashlee. [address] [facility] [address] [place], [id number], [place]. tel:[phone] [facility], [address] [address], [place], [place], [address], [place] tel:[phone] Ashley Muscle weakness (generalized) b0 4 Brianna Leonarda. [address] [facility] [place] [place], [address], [place]. tel:[phone] [facility], [address] [facility] [address], [place], [place], [address], [place] tel:[phone] Ashley Difficulty in walkin g, not elsewhere classified [address] Caraballo. [address] [facility] [place], [address], [place]. tel:[phone] [facility], [address] [facility], [place], [place], [id number], [place] tel:[phone] Ashley Muscle weakness (generalized) 4 Brianna Brower. [address] [facility] [place], [address], [place]. tel:[phone] [facility], [address] [facility], [place], [place], [id number], [place] tel:[phone] Ashley Encounter for rehabilitation evaluation 4 Brianna Brower. [address], [place], [place], [address], [place]. tel:[phone] [facility], [address] [facility] [address] [facility], [place], [place], [id number], [place] tel:[phone] Ashley Semi-Annua l (chief complaint) cont (chief complaint) Type 2 diabetes mellitus with diabetic polyneuropathy, unspecified whether fpc insulin useCurrent use of insulinSeizureOpioid dependence in remissionHistory of cocaine abusePTSD (post-traumatic stress disorder)Schizoaffectiv e disorder, bipolar typeHypercholesteremiaH ypertension, unspecified typeOrthostatic hypotensionEssential tremorCervical disc diseaseChronic bilateral low back pain without sciaticaOther chronic painObstructive sleep apneaDysautonomiaSelect Medical Specialty [facility] care maintenance 4 Shaggy Rosado. [address] [place], [address], [place]. tel:[phone] [facility], [address] [facility] [address] [facility], [place], [place], [address], [place] tel:[phone] Ashley No Information 4 Coonbridgett Rosado. [address] [place], [place], [address], [place]. tel:[phone] [facility], [address], [place], [place], [address], [place] tel:[phone] Ashley No Information 4 Jake Hoffman. [address] [place], [place], [address], [place]. tel:[phone] [facility], [address], [place], [place], [address], [place] tel:[phone] Ashley Difficulty in walkin g, not elsewhere classified [address] [place], [place], [address], [place]. tel:[phone] [facility], [address], [place], [place], [id number], [place] tel:[phone] Ashley Difficulty in walkin g, not elsewhere classified [address] [place], [place], [address], [place]. tel:[phone] [facility], [address], [place], [place], [address], [place] tel:[phone] Ashley Encounter for rehabilitation evaluationDifficulty in walking, not elsewhere classified [address] Carab[address], [place], [place], [address], [place]. tel:[phone] [facility], [address], [place], [place], [address], [place] tel:[phone] Ashley No Information 3 Shaggy Rosado. [address] [place], [place], [address], [place]. tel:[phone] [facility], [address], [place], [place], [id number], [place] tel:[phone] Ashley Muscle weakness (generalized) Aug- [address] Carab[address]. [address] [place], [place], [address], [place]. tel:[phone] [facility], [address], [place], [place], [id number], [place] tel:[phone] Ashley Other abnormalities of gait and mobility [address] Carab[address], [place], [place], [address], [place]. tel:[phone] [facility], [address], [place], [place], [address], [place] tel:[phone] Ashley No Information 3 Shaggy Rosado. [address] [place], [place], [address], [place]. tel:[phone] [facility], [address], [place], [place], [address], [place] tel:[phone] Ashley No Information 3 Shaggy Rosado. [address] [place], [place], [address], [place]. tel:[phone] [facility], [address], [place], [place], [address], [place] tel:[phone] Ashley Difficulty in walkin g, not elsewhere classified [address] [place], [place], [address], [place]. tel:[phone] [facility], [address], [place], [place], [address], [place] tel:[phone] Ashley Difficulty in walkin g, not elsewhere classified [address] [place], [place], [address], [place]. tel:[phone] [facility], [address] [facility], [place], [place], [address], [place] tel:[phone] Ashley Acute Visit (chief complaint) Essential tremorObstructive sleep apneaOrthostatic hypotensionOther chronic pain 3 Shaggy Rosado. [address] [place], [place], [address], [place]. tel:[phone] [facility], [address] [facility], [place], [place], [address], [place] tel:[phone] Ashley Difficulty in walkin g, not elsewhere classified [address] [place], [place], [address], [place]. tel:[phone] [facility], [address] [facility], [place], [place], [id number], [place] tel:[phone] Ashley Difficulty in walkin g, not elsewhere classified [address] [place], [place], [id number], [place]. tel:[phone] [facility], [address] [facility], [place], [place], [id number], [place] tel:[phone] Ashley Encounter for rehabilitation evaluation [address] [place], [place], [id number], [place]. tel:[phone] [facility], [address] [facility], [place], [place], [id number], [place] tel:[phone] Ashley No Information 3 Danny Hodges. [address] [place], [place], [address], [place]. tel:[phone] [facility], [address], [place], [place], [address], [place] tel:[phone] Ashley Semi-Annua l (chief complaint) Schizophrenia, unspecified typeBipolar 1 disorderHealthcare maintenanceObstructive sleep apneaEssential tremorChronic pain syndromeCervical disc diseaseSeizureHyperchol esteremiaChronic bilateral low back pain, unspecified whether sciatica presentOther chronic painErectile dysfunction, unspecified erectile dysfunction typeUrinary incontinence, unspecified typeType 2 diabetes mellitus with diabetic polyneuropathy, unspecified whether fpc insulin useCurrent use of insulinPrimary hypertensionOpioid dependence in remissionHistory of cocaine abusePTSD (post-traumatic stress disorder) 3 Shaggy Rosado. [address] [facility] [address], [place], [place], [address], [place]. tel:[phone] [facility], [address] [facility] [address], [place], [place], [address], [place] tel:[phone] Ashley Encounter for nutritional assessmentAt risk for inadequate oral intakeDiabetic nutritional counseling completed 3 Pelon Tucker. [address] [place], [place], [id number], [place]. tel:[phone] [facility], [address] [facility], [place], [place], [address], [place] tel:[phone] Ashley Dorsalgia, unspecified 3 Bhagavatula Uclaricejwala. [address] [facility] [address], [place], [place], [address], [place]. tel:[phone] [facility], [address] [facility] InstrumentLifete [facility], [place], [place], [address], [place] tel:[phone] Ashley Encounter for genera l adult medical examination without abnormal findings 3 Robert Johnson. [address] [place], [place], [address], [place]. tel:[phone] [facility], [address] [facility] [address], [place], [place], [address], [place] tel:[phone] Ashley Type 2 diabetes mellitus with other skin complications 3 Bhagavatula Ujjwala. [address] [facility] [place], [address], [place]. tel:[phone] [facility], [address], [place], [place], [address], [place] tel:[phone] Ashley Other chest pain 3 Robert Johnson. [address] [place], [address], [place]. tel:[phone] [facility], [address] [facility] [address], [place], [place], [address], [place] tel:[phone] Ashley Encounter for nutritional assessmentDiabetes education, encounter forExcessive carbohydrate intakeAt risk for inadequate oral intake 3 Pelon Tucker. [address] [facility] [place], [address], [place]. tel:[phone] [facility], [address] [facility] [address], [place], [place], [address], [place] tel:[phone] Ashley Other chronic pain 3 Praneeth Cerna. [address] [facility] [address], [place], [place], [address], [place]. tel:[phone] [facility], [address] [facility] [address] [facility], [place], [place], [address], [place] tel:[phone] Ashley Encounter for rehabilitation evaluation 3 Praneeth Cerna. [address] [facility] [place], [address], [place]. tel:[phone] [facility], [address], [place], [place], [address], [place] tel:[phone] Ashley Encounter for rehabilitation evaluation 3 Jamshid Fregoso. [address] [facility] [place], [address], [place]. tel:[phone] [facility], [address], [place], [place], [address], [place] tel:[phone] Ashley FATOU (chief complaint) Schizophrenia, unspecified typeBipolar 1 disorderLong term current use of antipsychotic medicationHistory of cocaine abuseHypertension, unspecified typeHypercholesteremiaT ype 2 diabetes mellitus with diabetic polyneuropathy, with long-term current use of insulinLong term (current) use of insulinEssential tremorSeizureLong term (current) use of oral hypoglycemic drugsOpioid dependence, in remission 3 Robert Alex. [address] [place], [place], [id number], [place]. tel:[phone] [facility], [address] [facility] [address], [place], [place], [address], [place] tel:[phone] Ashley No Information 2 Danny Hodges. [address] [place], [place], [id number], [place]. tel:[phone] [facility], [address] [facility] [address] [facility], [place], [place], [address], [place] tel:[phone] Ashley Muscle weakness (generalized) 2 Kirsten Kip. [address] [place], [address]. tel:[phone] [facility], [address], [place], [place], [address], [place] tel:[phone] Ashley PHV (chief complaint) assisted current use of antipsychotic medicationAspiration pneumonia, unspecified aspiration pneumonia type, unspecified laterality, unspecified part of lung 2 Os Crissy. [address] [place], [place], [id number], [place]. tel:[phone] [facility], [address] [facility] [address] [place] [address], [id number], [place] tel:[phone] Ashley No Information 2 Danny Hodges. [address] [place], [place], [id number], [place]. tel:[phone] [facility], [address] [facility] [address] [facility], [place], [place], [address], [place] tel:[phone] Ashley Muscle weakness (generalized) 2 Kirsten Kip. [address] [place], [address]. tel:[phone] [facility], [address] [facility] [address], [place], [place], [address], [place] tel:[phone] Ashley Muscle weakness (generalized) 2 Kirsten Kip. [address] [place], [address]. tel:[phone] [facility], [address] [facility], [place], [place], [address], [place] tel:[phone] Ashley No Information 2 Os Crissy. [address] [place], [address], [place]. tel:[phone] [facility], [address] [facility], [place], [place], [address], [place] tel:[phone] Ashley Hemiplegia and hemiparesis following unspecified cerebrovascular disease affecting right non-dominant sideMuscle weakness (generalized) 2 Kirsten Kip. [address] [place], [address]. tel:[phone] [facility], [address] [facility], [place], [place], [address], [place] tel:[phone] Ashley Diabetes education, encounter forEncounter for nutritional assessmentExcessive carbohydrate intake 2 Normile Caitlin. [address] [place], [place], [address], [place]. tel:[phone] [facility], [address] [facility], [place], [place], [address], [place] tel:[phone] Ashley FATOU (chief complaint) Hypertension, unspecified typeHypercholesteremiaC urrent use of insulinType 2 diabetes mellitus with diabetic polyneuropathy, unspecified whether intermediate designer insulin useSchizophrenia, unspecified typeBipolar 1 disorderPTSD (post-traumatic stress disorder)intermediate designer current use of antipsychotic medicationBack pain, unspecified back location, unspecified back pain laterality, unspecified chronicitySeizureEssent ial tremorOpioid dependence, in remission 2 Os Crissy. [address] [place], [place], [address], [place]. tel:[phone] [facility], [address] [facility], [place], [place], [address], [place] tel:[phone] Ashley Extraction of tooth needed 2 Os Crissy. [address] [place], [place], [address], [place]. tel:[phone] [facility], [address] [facility] [address] [facility], [place], [place], [address], [place] tel:[phone] Ashley Muscle weakness (generalized) 2 Kirsten Kip. [address] [place], [address]. tel:[phone] [facility], [address] [facility] [address] [facility], [place], [place], [address], [place] tel:[phone] Ashley Muscle weakness (generalized) 2 Kirsten Kip. [address], [place], [address]. tel:[phone] [facility], [address] [facility], [place], [place], [address], [place] tel:[phone] Ashley Obstructive sleep apnea 2 Os Crissy. [address] [place], [place], [address], [place]. tel:[phone] [facility], [address] [facility] [address] [facility], [place], [place], [address], [place] tel:[phone] Ashley Difficulty in walkin g, not elsewhere classified 2 Kirsten Ikp. [address] [place], [address]. tel:[phone] [facility], [address] [facility] [address] [facility], [place], [place], [address], [place] tel:[phone] Ashley Other chronic pain 2 Danny Carroll. [address] [place], [address], [place]. tel:[phone] [facility], [address] [facility] [facility], [place], [place], [address], [place] tel:[phone] Ashley Type 2 diabetes mellitus with diabetic polyneuropathy, unspecified whether fpc insulin use 2 Os Crissy. [address] [place], [address], [place]. tel:[phone] [facility], [address] [facility] [address] [facility], [place], [place], [address], [place] tel:[phone] Ashley FUV (chief complaint) Edema, unspecified type 2 Os Crissy. [address] [place], [address], [place]. tel:[phone] [facility], [address] [facility], [place], [place], [address], [place] tel:[phone] Ashley PHV (chief complaint) Back pain, unspecified back location, unspecified back pain laterality, unspecified chronicity 2 Os Crissy. [address] [place], [place], [address], [place]. tel:[phone] [facility], [address] [facility] [address] [facility], [place], [place], [address], [place] tel:[phone] Ashley OV (chief complaint) Current use of insulinFall, initial encounterType 2 diabetes mellitus without complication, with long-term current use of insulin 2 Os Crissy. [address] [place], [place], [address], [place]. tel:[phone] [facility], [address] [facility] [address] [facility], [place], [place], [address], [place] tel:[phone] Ashley No Information 2 Os Crissy. [address] [place], [place], [address], [place]. tel:[phone] [facility], [address] [facility] [address] [facility], [place], [place], [address], [place] tel:[phone] Ashley Type 2 diabetes mellitus with diabetic polyneuropathy, unspecified whether fpc insulin use 2 Os Crissy. [address] [place], [place], [address], [place]. tel:[phone] [facility], [address] [facility], [place], [place], [address], [place] tel:[phone] Ashley Encounter for nutritional assessmentAbnormal weight lossDiabetes education, encounter for 2 Normile Caitlin. [address] [place], [place], [address], [place]. tel:[phone] [facility], [address] [facility] [address], [place], [place], [address], [place] tel:[phone] Ashley PEE (chief complaint) Hypertension, unspecified typeHypercholesteremiaC urrent use of insulinErectile dysfunction, unspecified erectile dysfunction typeSchizophrenia, unspecified typeBipolar 1 disorderPTSD (post-traumatic stress disorder)intermediate designer current use of antipsychotic medicationSeizureCervic al disc diseaseChronic pain syndromeEssential tremorEncounter for general adult medical examination without abnormal findingsOpioid dependence, in remissionType 2 diabetes mellitus with diabetic polyneuropathy, unspecified whether intermediate designer insulin useHistory of cocaine abuse 2 Os Crissy. [address] [place], [place], [address], [place]. tel:[phone] [facility], [address], [place], [place], [address], [place] tel:[phone] Ashley Encounter for rehabilitation evaluation 2 Kirsten Shin. [address], [place], [address]. tel:[phone] [facility], [address] [facility] [address] [facility], [place], [place], [address], [place] tel:[phone] Ashley Encounter for rehabilitation evaluationDifficulty in walking, not elsewhere classifiedAlteration in performance of activities of daily living 2 Deirdre Garcia Zenobia Leonard. [address] [place], [place], [address]. tel:[phone] [facility], [address] [facility] [address], [place], [place], [address], [place] tel:[phone] Ashley Encounter for genera l adult medical examination without abnormal findings 2 Jeffrey Robins. [address], [place], [place], [address], [place]. tel:[phone] [facility], [address] [facility] [address] [facility], [place], [place], [address], [place] tel:[phone] Ashley No Information 2 Aria Chambers. [address] [place], [address], [place]. tel:[phone] Family History Family Member Type Diagnosis Age At Onset Mother Problem Diabetes mellitus Father Problem Heart disease Immunizations Vaccine Date Status Comments Zoster recombinant subunit administered S ource: New Immunization Record Flu-IIV4, p-free administered Source: Ot er Registry COVID-19 Pfizer Bivalent 12y+ administere d Source: Other Registry Fluzone Quad administered [facility] e: New Immunization Record Prevnar 13 administered Source: New Imm unization Record Fluzone Quad [id number] administered Note: Got influenza vaccine same day as COVID ; Source: Other Registry COVID-19 (Pfizer) administered Source: Ot [facility] Provider COVID-19 (Pfizer) administered Source: Ot her Provider Payers Payer name Insurance type Covered alliance party ID Keiko berman(abiel) [facility] 16 [id number] [facility] 16 [id number] [facility] 16 [id number] [facility] Health 16 [id number] Social History Type Description Quantity Date Captured Comments Sex Male Smoking Status No Information Chief Complaint And Reason For Visit No Information Plan Of Treatment Date Type Action Status Referral Ordered: Referrals: Neurology. Location: [facility] Appointment date/timeframe: 10/26/2023 ordered Referral Ordered: Referrals: Cardiology. Location: [facility]. Consult Appointment date/timeframe: 02/28/2024 ordered Referral Ordered: Referrals: Pain Medicine. Consult ordered Referral Ordered: Referrals: Gastroenterology Appointment date/timeframe: 03/08/2023 ordered Referral Ordered: Referrals: [facility] [facility] Evaluate and treat ordered Referral Ordered: Referrals: Podiatry Appointment date/timeframe: 11/29/2022 ordered Referral Ordered: Referrals: [facility] [employer] Appointment date/timeframe: 01/18/2023 ordered Referral Referred To: [...] 2D image, spectral Doppler, color flow image ([id number]), Ordered on: Ordered Future Order: Radiology Order Po lysomnography, 4+ add'l params ([id number]), Ordered on: Ordered History Of Present Illness Encounter Date Complaint History Of Prese nt Illness cont Neuro diagnostic : polysommogram with cpap on 04/19/2022 at [facility] referred for non-restorative sleep. Found [...] pain and reported had injections monthly in [place]. He states he had injections of Toradol. Worse pain in his back and his spine does not support his upper body and he falls from side to side but no falls recently. Sister said issue with morphine and this was stopped. Moved from [place] in apr 2021 to be with son who has brain tumor. Ppt was never seen by a provider needed [place] pain management notes and did not offer medical management at this time. This note was written by an RN and it was just a call to the ppt. Awaiting notes from [place] pain management to go any further. Currently pain more controlled does not seem interested at this point. Neurology: 10/26/2023 Dr. Villalpando from [facility] went for tremor that has affected [...] anything in the last 5 [place] [facility] Referral placed awaiting for colonoscopy. Dexa: Has [...] given shingles vaccines today and due for [id number]:Mind: AxOx4 can be forgetful mild cognitive impairment [...] and +s2Abd soft, non tender, non distended, +pjk9Ucywfd gait Skin intactFeet well taken care for, nails trimmed, +pp, no edema, reduced microfilament test, +cmsCalm and cooperative Semi-Annual Patient was seen today for their Semiannual at the office accompanied by sister who is paid career based intervention coordinator. Marquise is known for cancelling or not showing up for appts and had cancelled this appt multiple times and had to be reminded the importance of coming into appts so we can take care of him. Marquise enrolled at in 10/2021. Marquise lives with his sister/paid career based intervention coordinator and son who his sister and himself take care of in a first floor appt in [place]. The main goal of marquise and his [...] have orthostasis. No falls in last month. [facility] 09/04- presented for frequent falls at [...] saw neuro today. ADLs/services: Sister is paid career based intervention coordinator and helps with meals, drives ppt to [...] this. Mental Health: Follows with Candace Hastings [facility] for schizoaffective disorder bipolar type [...] next semi unless issues. Ophthalmology: Follows with [facility]ometry seen 12/2022 ordered bifocals for presbyopia, age related cataracts bilateral not yet indicated for surgical intervention. Will need follow up at next semi. Cardiology: March 19, 2022 [facility] [place] Dr. Banda for HTN had been on lisinopril and amlodipine in past that were stopped due to renal dysfunction ? blood clot in kidney per [facility]. Ppt had swelling at time [...] without regional wall motion.Endocrinology: I actually saw [facility] as endo provider through [facility] last apr 2022 most recently was seen [...] no nystagmusMAE=strongLSCTA bilaterallyheart rate regular +s1 and +r4fnrbhiwtv hand tremors moderate at rest and when [...] home accompanied by sister who is paid career based intervention coordinator. We have made multiple attempts to get ppt to come into site and call but no one picked up. Discussed with paid career based intervention coordinator that she needs to be available by phone. She checked her phone to make sure there was nothing wrong. She reported she never got any calls. We verified her number along with ppt. Ppt FATOU was due a week earlier but never showed up multiple times and then there was two provider changes. This is my first time meeting [facility] as new pcp. Ppt enrolled at in 10/2021. Ppt lives with his sister/paid career based intervention coordinator and son in an first floor appt in [place]. HHN will be getting VS as not done today due to equipment errorNo recent hospitalization, SNFs or falls per ppt, collective and [facility] review in the last year.Complaints/concerns: No real concerns. Sister feels ppt is a little down however ppt reports he just wishes he was living in [place] and that is his goal. ADLs/services: Sister is paid career based intervention coordinator and helps with meals, drives ppt to [...] issues with chewing or swallowing.Ophthalmology: Follows with [facility] optometry seen 12/2022 ordered bifocals for presbyopia, age related cataracts bilateral not yet indicated for surgical intervention. Cardiology: March 19, 2022 [facility] cardi[place] Dr. Banda for HTN had been [...] actually saw ppt as endo provider through [facility] last apr 2022 most recently was seen [...] do at end of month. 2022 labs [facility] Urine microalbumin neg, lipid panel 108/217/33/32, alc 8%, cr 1.1 and gfr 81. Olvin wnlNlaisha diagnostic: polysommogram with cpap on 04/19/2022 at [facility] referred for non-restorative sleep. Found [...] pain and reported had injections monthly in [place]. He states he had injections of Toradol. Worse pain in his back and his spine does not support his upper body and he falls from side to side but no falls recently. Sister said issue with morphine and this was stopped. Moved from [place] in apr 2021 to be with son who has brain tumor. Ppt was never seen by a provider needed [place] pain management notes and did not offer medical management at this time. This note was written by an RN and it was just a call to the ppt. Awaiting notes from [place] pain management to go any further. Colonoscopy: ppt is unsure. I do not see anything in the last 5 years at [facility]. Will try to find if he has [...] for shingles vaccines, tdap, and flu in tbig5Fs:Mind: AxOx4 can be forgetful mild cognitive impairment [...] sometimes praveena related to not living in [place] middle age [id number] intact Pt has own teeth with no concerns Moist mucous membranesNo enlarged cervical lymph nodes, thyroid inspected with no nodules palpatedBilateral hand tremor restingLSCTA bilaterally Heart regular rate +s1 and +s2Abd soft, non tender, non distended, +yup7Oukzma gait Skin intactFeet well taken care for, [...] - appt pending Prescriber - Candace Hastings ([facility])No questions or concerns he is doing so much better reports a family memberHX OF COCCAINE/OPIOID ABUSEDenies current useHTNMetoprololBP 104/70 todayLabs later DM w/ [id number] - 7% (04/2022)Foot exam?Metformin, lantus, HumalogDoes not [...] ect.): pain be managed without addictive medications Comments: Rogelio mo is a 56 year [...] for a PHV. Pt was brought to [facility] on 01/25 for back pain. He [...] his 30s when he was living in [place]. He reported his ex- determined he had [...] is a good support along with his pentecostal. -Currently denies any type of hallucinations or delusions. Denies wanting to hurt himself or anyone else. Denies SI. Both he and his sister feel he is the best he has been and in a stable place. Reports a little depressed as he wants to move to [place] but comes and goes. Follows with Candace Hastings [facility] for schizoaffective disorder bipolar type [...] prnSW is working on getting ppt into [facility] therapyContinue to monitor Related to [...] a good support and also Jehovah witness pentecostal. No longer doing drugs for some time [...] the same as well as sister (in [place])denies any current useusing non opioid alternatives for chronic pain with sucess like gabapentin and cymbalta Related to Opioid dependence in remission no seizure activityN a wnl at [facility] depokote 375 bid with valporic acid level [...] saw ppt a s endo provider through [facility] last apr 2022 most recently was seen [...] diabetes mellitus with diabetic polyneuropathy, unspecified whether fpc insulin use wants cpr but dni wh ich doesn't make sense but does not want to change anything. Ppt is his own person and educated.lives with sister who is hcp proxy and paid care givergoal is to move down [place] to find out if had colonoscopy if [...] po lysommogram with cpap on 04/19/2022 at [facility] referred for non-restorative sleep. Found [...] notes from pts previous pain clinic in [facility].Pt does not want any aggressive measures nor wanting any narcotics d/t past hx of addition. Currently on cymbalta, gabapentin and voltaren, tylenol and recently went up on gabapentin. Reports pain controlled. Since pain clinic won't see him without [place] notes and unable to obtain and ppt reports controlled willl d/c referral ppt is okay with this. Related to Chronic bilateral low back pain without sciatica Chronic back pain r/ t multiple surgeries per pt. Pt has pain clinic referral though pain clinic is waiting for past notes from pts previous pain clinic in [facility].Pt does not want any aggressive measures nor wanting any narcotics d/t past hx of addition. Currently on cymbalta, gabapentin and voltaren, tylenol and recently went up on gabapentin. Reports pain controlled. Since pain clinic won't see him without [place] notes and unable to obtain and ppt [...] placed but unable to get notes from [place] and wont' see him. Reports currently pain controlled and does not need referral. Related to Cervical disc disease 10/26/[address] Sanjay finley from [place] [facility] due to ongoing tremors affecting quality [...] speech at times. However admitted [facility] 09/04[facility]08 for syncope found to have orthostasis [...] result in this had admit to [facility] [place] for syncope, falls, dizziness found [...] pain and reported had injections monthly in [place]. He states he had injections of Toradol. Worse pain in his back and his spine does not support his upper body and he falls from side to side but no falls recently until today. Sister said issue with morphine and this was stopped. Moved from [place] in apr 2021 to be with son who has brain tumor. Ppt was never seen by a provider needed [place] pain management notes and did not offer [...] po lysommogram with cpap on 04/19/2022 at [facility] referred for non-restorative sleep. Found [...] pain mangement but didn't have records from [facility] so wouldn't see him per pptneuro [...] opioids ie morphineppt enodrses the same (in [place])denies any current usewill re-eval for acute pain/surgical [...] saw ppt a s endo provider through [facility] last apr 2022 most recently was seen [...] do at end of month. 2022 labs [facility] Urine microalbumin neg, lipid panel 108/217/33/32, alc 8%, cr 1.1 and gfr 81. Lytes wnlgoal alc less than 7% and discussed microvascular and macrovascular complications of uncontrolled dm Related to Type 2 diabetes mellitus with diabetic polyneuropathy, unspecified whether fpc insulin use has seen urology in past [...] notes from pts previous pain clinic in [facility].Pt does not want any aggressive measures [...] notes from pts previous pain clinic in [facility].Pt does not want any aggressive measures [...] pain and reported had injections monthly in [place]. He states he had injections of Toradol. Worse pain in his back and his spine does not support his upper body and he falls from side to side but no falls recently. Sister said issue with morphine and this was stopped. Moved from [place] in apr 2021 to be with son who has brain tumor. Ppt was never seen by a provider needed [place] pain management notes and did not offer [...] po lysommogram with cpap on 04/19/2022 at [facility] referred for non-restorative sleep. Found [...] care givergoal [place] to [place] if had colonoscopy if not due for oneno longer needs to see endo I can manage thatcontinue to follow with pysch Related to Healthcare maintenance bipolar well control led without symptoms just some mild sadness as he wants to move to [place] but reports he is happy most days [...] his 30s when he was living in [place]. He reported his ex- determined he had [...] depressed as he wants to move to [place] but comes and goes. -Continue: seroquel 100mg [...] dependance on opioidsppt enodrses the same (in [place])denies any current usewill re-eval for acute pain/surgical [...] exam benign except for decreased sensationref to oauxrmwmz9n and labs todayeval ongoing Related to Type 2 diabetes mellitus with diabetic polyneuropathy, with long-term current use of insulin last a1c 7.00using C GMsugars sometimes labile - may be d/t antipsychotic use continues on humalog, lantus, metforminfoot exam benign except for decreased sensationref to otljloqpp5v and labs todayeval ongoing Related to assisted (current) use of insulin continues on STATIN [...] cymbalta, seroq uel, trazodone, ziprasidone Related to intermediate designer current use of antipsychotic medication No symptoms [...] 06/25 w/ script sent to his pharmacy [facility]. He did not receive the medication nor notify [facility] until Tuesday that the pharmacy could not fill as they were out of stock . Ppt did tell SE he would be going back to [facility] for symptoms on 06/28/22 at 4:15p. [...] type, unspecified laterality, unspecified part of lung [facility] 05/29 Admitted for sepsis secondary to likely aspiration pneumonia in the setting of extrapyramidal symptoms from Antipsychotics. He was given ceftriaxone, doxycycline sepsis resolved and was discharged home on 7 more days of augmentin.Medication changes:Antipsychotics have been prescribed by Jeremias Vizcarra's office-Seroquel 100mg at bedtime-Depakote DR 375mg BID Related to assisted current use of antipsychotic medication Pt reports [...] for medical records from pain clinic in [place] Related to Opioid dependence, in remission Chronic back pain r/ t multiple surgeries per pt. Pt has pain clinic referral though pain clinic is waiting for past notes from pts previous pain clinic in [facility].Pt does not want any aggressive measures [...] prescribed and managed by psych. Related to assisted current use of antipsychotic medication Pt at [...] and made the following recommendations -Changed: insulin [id number]> 17unitsSTARTED lantus 24units in AMCONTINUE metformin 500mg BIDNeuropathy reported in paul feet; numbness and tingling.Abnormal monofilment exam, loss of protective sensation. Diabetic foot exam education. -Continue gabapentin-Education provided on new medications and daily feet checks. Related to Type 2 diabetes mellitus with diabetic polyneuropathy, unspecified whether fpc insulin use No symptoms reported at this [...] his 30s when he was living in [place]. He reported his ex- determined he had [...] and made the following recommendations -Changed: insulin [id number]> 17unitsSTARTED lantus 24units in AMCONTINUE metformin 500mg [...] diabetes mellitus with diabetic polyneuropathy, unspecified whether fpc insulin use Discussed during las t visit [...] a PHV . Pt was brought to [facility] on 01/25 for back pain. He received 3 injections (1 in each arm and one in his left leg per sister). Today pt continues to complain of back pain. Pt had been going to pain clinic when he was living in [place] and reported relief w/ injections.Plan: Discussed trying [...] Current use of insulin History of T2DM [facility] age 34 being treated w/ [...] diabetes mellitus with diabetic polyneuropathy, unspecified whether intermediate designer insulin use Denied cocaine abuse early in our conversation though then discussed cocaine use for a suicide attempt. -Has attempted suicide 2x in the past: cutting and cocaine overdose. Identifies his sister is a good support. Plan: drug screen Related to History of cocaine abuse History of T2DM [facility] age 34 being treated w/ [...] diabetes mellitus with diabetic polyneuropathy, unspecified whether fpc insulin use I have deterieratio n of [...] his 30s when he was living in [place]. He reported his ex- determined he had [...] his 30s when he was living in [place]. He reported his ex- determined he had [...] valporic acid level, primidone level Related to assisted current use of antipsychotic medication Pt reports I had a seizure along time ago . No clarity on when this event took place. He is on depakote. Related to Seizure BP 114/60-Currently taking metoprolol and lisinopril Related to Hypertension, unspecified type Per preenrollment re cords. Lipid panel ordered.-Currently taking ojuothu49nd daily Related to Hypercholesteremia History of T2DM [...]
--- NOTE | ~2025-03-25 | XR_ITS ---
EXAMINATION: XR ANKLE, RIGHT CLINICAL INFORMATION: M25.571 - Pain in right ankle and joints of right foot COMPARISON: February 22, 2025. TECHNIQUE: AP, lateral, and mortise views of the right ankle. FINDINGS: Diagonally oriented fracture with a 3 mm gap between the fragments involving the lateral malleolus. There is minimal callus formation. Distal tibia and talus and calcaneus are intact. There is an exostosis at the Achilles tendon insertion. Vascular calcifications. XR/XR ankle RT min 3V IMPRESSION: Minimal healing, lateral malleolus fracture. Nonunion fracture cannot be excluded. Electronically signed by: Noe Bolaños MD 03/25/2025 11:28 AM EDT
--- OUTSIDE RECORDS SUMMARY | 2025-03-26 07:12 | XMS_ITS | Patient Health Record ---
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 Name Role Phone Nino Gonsalves Primary Care Provider Reason For Referral No Information Medications Medication SIG (Take, Route, Frequency, Duration) Notes Start Date End Date Status Antivert 25 mg 1 tab po tid prn for 30 day(s) 04/10/2019 Active Nystatin powder 100,000 units/g as directed topically apply thin layer bid for 30 day(s) 02/12/2019 Active gabapentin 800 mg 1 tab(s) orally 2 ti mes a day for 30 day(s) Active diclofenac sodium 50 mg 1 tab(s) orally 2 times a day Active HumuLIN 70/30 human recombinant 70 units-30 units/mL 38 units am, 18 units hs subcutaneously bid for 30 day(s) Active cyclobenzaprine 10 mg 1 tab(s) orally 3 times a day Active Atorvastatin Calcium 20 mg 1 tab(s) oral ly once a day for 90 days Active Baclofen 20 mg 1 tab(s) orally bid Active divalproex sodium 500 mg 1 tab(s) orally 3 times a day Active omeprazole 40 mg 1 cap(s) orally once a day for 90 Active FLUoxetine 20 mg 1 cap(s) orally once a day for 30 day(s) Active clonazePAM 2 mg 1 tab(s) orally qhs Active metoprolol 50 mg 1 tab(s) orally 2 ti mes a day for 90 Active Zofran ODT 4 mg 1 tab(s) orally 3 ti mes a day for 30 day(s) Active Levaquin 500 mg 1 tab(s) orally ever y 24 hours for 14 day(s) 08/08/2019 Active Aspir-Low 81 mg 1 tab(s) orally once a day for 90 days Active QUEtiapine 100 mg 1 tab orally qhs Active Dicyclomine Hydrochloride 10 mg 1 cap(s) orally tid for 10 day(s) Active lisinopril 5 mg 1 tab(s) orally once a day for 90 Active Social History Tobacco Use: Social History Observation Description Date Details (start date - stop date) Never Smoker NA - NA Alcohol: Question Answer Notes How often did you have a dri nk containing alcohol in the past year? never (0 points) How many drinks did you have on a typical day when you were drinking in the past year? 1 or 2 drinks (0 points) How often did you have 6 or more drinks on one occasion in the past year? never (0 points) Did you have a drink contain ing alcohol in the past year? No Points 0 Interpretation Negative Smoking: Question Answer Notes Are you a: never smoker Additional Findings: Tobacco Non-User Aggressive non-smoker Problems Problem Type SNOMED Code ICD Code Onset Dates Problem Status W/U Status Risk Notes Problem Mixed hyperlipidemia (681636897) Mixed hyperlipidemia (E78.2) Active confirmed Problem Insomnia (437404694) Insomnia, unspecified (G47.00) Active confirmed Problem Bipolar disorder (55396204) Bipolar disorder, unspecified (F31.9) Active confirmed Problem Schizophrenia (49718908) Schizophrenia, unspecified (F20.9) Active confirmed Problem Diabetic polyneuropathy (80523980) Other specified diabetes mellitus with diabetic polyneuropathy (E13.42) Active confirmed Problem Vaccination given (224085076) Encounter for immunization (Z23) Active confirmed Problem Problem, abnormal examination (11307944) Encounter for general adult medical examination with abnormal findings (Z00.01) Active confirmed Problem Atherosclerotic heart disease of [place] coronary artery without angina pectoris (299289469345505) Atherosclerotic heart disease of [place] coronary artery without angina pectoris (I25.10) Active confirmed Problem Type II diabetes mellitus without complication (877183435) Type 2 diabetes mellitus without complications (E11.9) Active confirmed Problem Essential hypertension (44285401) Essential (primary) hypertension (I10) Active confirmed Problem Screening for malignant neoplasm of colon (684980235) Encounter for screening for malignant neoplasm of colon (Z12.11) Active confirmed Problem Diarrhea (24487933) Diarrhea, unspecified (R19.7) Active confirmed Problem Nausea and vomiting (20626333) Nausea with vomiting, unspecified (R11.2) Active confirmed Problem Generalized abdominal pain (031552320) Generalized abdominal pain (R10.84) Active confirmed Problem Labyrinthitis (95840999) Labyrinthitis, unspecified ear (H83.09) Active confirmed Problem Epilepsy (49093805) Epilepsy, unspecified, not intractable, without status epilepticus (G40.909) Active confirmed Problem Polyneuropathy due to type 2 diabetes mellitus (924696021) Type 2 diabetes mellitus with diabetic polyneuropathy (E11.42) Active confirmed Problem Salmonella enteritis (605024957) Salmonella enteritis (A02.0) Active confirmed Problem Gastro-esophageal reflux disease without esophagitis (372766779) Gastro-esophageal reflux disease without esophagitis (K21.9) Active confirmed Problem Dizziness and giddiness (346361133) Dizziness and giddiness (R42) Active confirmed Problem Screening for malignant neoplasm of prostate (009064941) Encounter for screening for malignant neoplasm of prostate (Z12.5) Active confirmed Problem Body mass index 20-24 - normal (056284432) Body mass index (BMI) 23.0-23.9, adult (Z68.23) Active confirmed Problem Body mass index 25-29 - overweight (192305816) Body mass index (BMI) 27.0-27.9, adult (Z68.27) Active confirmed Problem Syncope and collapse (794086180) Syncope and collapse (R55) Active confirmed Problem Eruption of skin (132010841) Rash and other nonspecific skin eruption (R21) Active confirmed Plan Of Treatment Pending Test Test Name Order Date STOOL, CULTURE, FATOU/SHIG/CAMPY AND SHIGA TOXINS EI 07/12/2019 LIPID PANEL WITH REFLEX TO DIRECT LDL-14 852 02/12/2019 CBC (H/H, RBC, INDICES, WBC, PLT)-1759 0 01/01/2019 H.PYLORI AB (IGG), WB 07/12/2019 H.PYLORI AB (IGA), WB 07/12/2019 Stool C Difficile Toxins A+B, EIA 2018 Stool Guaiac (Occult Blood) 07/12/2019 HEMOGLOBIN [id number] 02/12/2019 HEMOGLOBIN H4e-004 01/01/2019 PSA, TOTAL 01/01/2019 URINALYSIS, COMPLETE-5463 01/01/2019 MICROALBUMIN, RANDOM URINE (W/CREATININE ) 02/12/2019 MICROALBUMIN, RANDOM URINE (W/CREATININE ) 01/01/2019 STOOL, OVA AND PARASITES 07/12/2019 LIPID PANEL 01/01/2019 TSH, 3RD GENERATION-899 01/01/2019 CLOSTRIDIUM DIFFICILE TOXIN/GDH W/REFL T O PCR 07/12/2019 CT ABDOMEN W/O CONT 07/12/2019 US CAROTID DOPPLER 03/27/2019 COMPREHENSIVE METABOLIC PANEL-60363 01/25 COMPREHENSIVE METABOLIC PANEL-92567 04/2019 URINALYSIS, COMPLETE 01/01/2019 LIPID PANEL WITH DIRECT LDL 01/01/2019 LIPID PANEL WITH DIRECT LDL 02/12/2019 COMPREHENSIVE METABOLIC PANEL 02/12/2019 COMPREHENSIVE METABOLIC PANEL 01/01/2019 HEMOGLOBIN A1c 01/01/2019 HEMOGLOBIN A1c 02/12/2019 Insurance Providers Payer Name Payer Address Payer Phone Subscriber Number Group Number Insured Name Patient Relationship to Insured Coverage Start Date Coverage End Date [employer] [address] [address] [place] [address] MESSI MCRAE Self - patient is the insured Medical (General) History Medical History History ICD Code DEPRESSION MUSCLE SPAMS DIABETes TYPE 2 dx 2009 HYPERTENSION GERD EPILEPSY BIPOLAR Insomnia Surgical History Surgery Date(Month/Year) 3 Right Hand Surgery 4 right arm Elbow Surgery 2 Cervical Surgery Left hand Middle finger surgery 2 right wrist surgery heart cath [place] 2013 colonoscopy [place]-- polypectomy
--- OUTSIDE RECORDS SUMMARY | 2025-03-26 07:12 | XMS_ITS | Patient Health Record ---
Author Organization [facility] Address [address] [place] [address] Care Team Providers Care Lead Driver Name Role Phone Jerri FREY, Sophia Primary Care Provider [phone] Nayeli FREY, Tutu Unavailable [phone] Caitlin Qureshi Unavailable [phone] Allergies No Known Allergies Results Component Value Reference Range Notes HEPATITIS PANEL, GENERAL Reviewed date:04/13/2024 09:24:05 AM Interpretation: Performing Lab:TP, [facility][id number] [address], [id number] Gualberto Sesay MD Notes/Report: 0 0 0 0 HEPATITIS A AB, TOTAL REACTIVE NON-REACTIVE educational purposes only.) http://TellFi/faq/AXF009 (This link is being provided for informational/ For additional information, please refer to HEPATITIS B SURFACE ANTIBODY QL NON-REACTIVE NON-REACTIVE HEPATITIS B SURFACE ANTIGEN NON-REACTIVE NON-REACTIVE educational purposes only.) (This link is being provided for informational/ For additional information, please refer to http://Catawiki.Jiankongbao/faq/FYJ618 HEPATITIS B CORE AB TOTAL NON-REACTIVE NON-REACTIVE http://TellFi/faq/PMI739 For additional information, please refer to educational purposes only.) (This link is being provided for informational/ HEPATITIS C ANTIBODY NON-REACTIVE NON-REACTIVE educational purposes only.) if recent HCV exposure is suspected, a test for HCV RNA In most cases, no further action is required. However, For additional information please refer to evidence of HCV infection. http://Catawiki.Jiankongbao/faq/ONS14c9 (This link is being provided for informational/ (test code 69068) is suggested. HCV antibody was non-reactive. There is no laboratory HIV 1/2 ANTIGEN/ANTIBODY,FOU RTH GENERATION W/RFL Reviewed date:04/13/2024 09:24:05 AM Interpretation: Performing Lab:[facility]-[id number], [id number] Gualberto Sesay MD Notes/Report: 0 0 0 0 HIV AG/AB, 4TH GEN NON-REACTIVE NON-REACTIVE detected. There is no laboratory evidence of HIV protected by state law. If your state requires such http://TellFi/faq/PCW412 PLEASE NOTE: This information has been disclosed to other information is NOT sufficient for this purpose. HIV-1 antigen and HIV-1/HIV-2 antibodies were not educational purposes only.) A general authorization for the release of medical or you from records whose confidentiality may be The performance of this assay has not been clinically For additional information please refer to without the specific written consent of the person to whom it pertains, or as otherwise permitted by law. protection, then the state law prohibits you from making any further disclosure of the information validated in patients less than 2 years old. infection. (This link is being provided for informational/ VDRL, SERUM Reviewed date:04/13/2024 09:24:05 AM Interpretation: Performing Lab:[facility]/Johnathan Vu [id number] Jacek Sandhu, [id number] Mario Rubio M.D.,PhD Notes/Report: 0 0 0 0 VDRL, SERUM Nonreactive Reference range: NONREACTIVE a treponemal-specific confirmatory test should be documented for this patient. performed unless prior syphilis infection has been The VDRL is a qfm-zybbfsstvd-vqmbnuxv test; therefore, MICROALBUMIN, RANDOM URINE ( W/CREATININE) Reviewed date:10/25/2024 10:26:20 AM Interpretation: Performing Lab:[facility]-[id number] [address], [id number] Gualberto Sesay MD Notes/Report: FASTING FASTING FASTING FASTING FASTING FASTING FASTING FASTING CREATININE, RANDOM URINE 51 20-320 mg/dL ALBUMIN, URINE 0.8 See Note: mg/dL Not established Reference Range: Reference Range ALBUMIN/CREATININE RATIO, RANDOM URINE 16 <30 mg/g creat Normal to Mildly increased <30 The ADA defines abnormalities in albumin excretion as follows: Albuminuria Category Result (mg/g creatinine) Moderately increased 30-299 abnormal before considering a patient to be The ADA recommends that at least two of three within a diagnostic category. specimens collected within a 3-6 month period be Severely increased > OR = 300 LIPID PANEL Reviewed date:10/25/2024 10:26:20 AM Interpretation: Performing Lab:[facility]-Smets2275 Christelle [id number] Gualberto Sesay MD Notes/Report: FASTING FASTING FASTING FASTING FASTING FASTING FASTING FASTING CHOLESTEROL, TOTAL 91 <200 mg/dL HDL CHOLESTEROL 28 > OR = 40 mg/dL TRIGLYCERIDES 160 <150 mg/dL LDL-CHOLESTEROL 39 (http://education.Impel NeuroPharma/faq/LDX325) <70 mg/dL for patients with CHD or diabetic patients better accuracy than the Friedewald equation in the LDL-C is now calculated using the [facility] Reference range: <100 calculation, which is a validated novel method providing Robert SS et al. ONESIMO. 2013;310(19): 8425-6345 Desirable range <100 mg/dL for primary prevention; estimation of LDL-C. with > or = 2 CHD risk factors. CHOL/HDLC RATIO 3.3 <5.0 (calc) NON HDL CHOLESTEROL 63 <130 mg/dL (calc) option. (LDL-C of <70 mg/dL) is considered a therapeutic factor, treating to a non-HDL-C goal of <100 mg/dL For patients with diabetes plus 1 major ASCVD risk COMPREHENSIVE METABOLIC PANE L Reviewed date:10/25/2024 10:26:20 AM Interpretation: Performing Lab:[facility] MigueEjioo7452 Magdalena [id number] Gualberto Sesay MD Notes/Report: FASTING FASTING FASTING FASTING FASTING FASTING FASTING FASTING GLUCOSE 144 65-99 mg/dL diabetes and this should be confirmed with a For someone without known diabetes, a glucose follow-up test. value >125 mg/dL indicates that they may have Fasting reference interval UREA NITROGEN (BUN) 10 7-25 mg/dL CREATININE 1.26 0.70-1.35 mg/dL EGFR 65 > OR = 60 mL/min/1.73m2 BUN/CREATININE RATIO SEE NOTE: 6-22 (calc) Not Reported: BUN and Creatinine are within reference range. SODIUM 139 135-146 mmol/L POTASSIUM 4.6 3.5-5.3 mmol/L CHLORIDE 101 98-110 mmol/L CARBON DIOXIDE 29 20-32 mmol/L CALCIUM 9.7 8.6-10.3 mg/dL PROTEIN, TOTAL 6.8 6.1-8.1 g/dL ALBUMIN 4.0 3.6-5.1 g/dL GLOBULIN 2.8 1.9-3.7 g/dL (calc) ALBUMIN/GLOBULIN RATIO 1.4 1.0-2.5 (calc) BILIRUBIN, TOTAL 0.4 0.2-1.2 mg/dL ALKALINE PHOSPHATASE 66 35-144 U/L AST 19 10-35 U/L ALT 20 9-46 U/L CBC (INCLUDES DIFF/PLT) Reviewed date:10/25/2024 10:26:20 AM Interpretation: Performing Lab:[facility], [facility]Ulquf[address], [id number] Gualberto Sesay MD Notes/Report: FASTING FASTING FASTING FASTING FASTING FASTING FASTING FASTING WHITE BLOOD CELL COUNT 6.5 3.8-10.8 Thousand/ uL RED BLOOD CELL COUNT 4.18 4.20-5.80 Million/uL HEMOGLOBIN 12.8 13.2-17.1 g/dL HEMATOCRIT 39.4 38.5-50.0 % MCV 94.3 80.0-100.0 fL MCH 30.6 27.0-33.0 pg MCHC 32.5 32.0-36.0 g/dL not clinically significant; however, it should be interpreted with caution in correlation with other red cell parameters and the patient's clinical value (in the range of 30 to 32 g/dL) is most likely For adults, a slight decrease in the calculated MCHC condition. RDW 13.4 11.0-15.0 % PLATELET COUNT 203 140-400 Thousand/uL MPV 11.6 7.5-12.5 fL ABSOLUTE NEUTROPHILS 2951 6665-1132 cells/uL ABSOLUTE LYMPHOCYTES 2256 850-3900 cells/uL ABSOLUTE MONOCYTES 559 200-950 cells/uL ABSOLUTE EOSINOPHILS 676 15-500 cells/uL ABSOLUTE BASOPHILS 59 0-200 cells/uL NEUTROPHILS 45.4 LYMPHOCYTES 34.7 MONOCYTES 8.6 EOSINOPHILS 10.4 BASOPHILS 0.9 URINALYSIS, COMPLETE Reviewed date:10/25/2024 10:26:20 AM Interpretation: Performing Lab:[facility]Nnqjv7599 [address] [id number] Gualberto Sesay MD Notes/Report: FASTING FASTING FASTING FASTING FASTING FASTING FASTING FASTING COLOR YELLOW YELLOW APPEARANCE CLEAR CLEAR SPECIFIC GRAVITY 1.012 1.001-1.035 PH 7.0 5.0-8.0 GLUCOSE 1+ NEGATIVE BILIRUBIN NEGATIVE NEGATIVE KETONES NEGATIVE NEGATIVE OCCULT BLOOD NEGATIVE NEGATIVE PROTEIN NEGATIVE NEGATIVE NITRITE NEGATIVE NEGATIVE LEUKOCYTE ESTERASE NEGATIVE NEGATIVE WBC NONE SEEN < OR = 5 /HPF RBC NONE SEEN < OR = 2 /HPF SQUAMOUS EPITHELIAL CELLS NONE SEEN < OR = 5 /HPF BACTERIA NONE SEEN NONE SEEN /HPF HYALINE CAST NONE SEEN NONE SEEN /LPF NOTE Only those elements seen were reported. This urine was analyzed for the presence of WBC, RBC, bacteria, casts, and other formed elements. HEMOGLOBIN A1c Reviewed date:10/25/2024 10:26:20 AM Interpretation: Performing Lab:[facility]-Mbaos2878 [address] [id number] Gualberto Sesay MD Notes/Report: FASTING FASTING FASTING FASTING FASTING FASTING FASTING FASTING HEMOGLOBIN A1c 6.6 <5.7 % of total Hgb hemoglobin A1c for diagnosis of diabetes for children. value of 6.5% or greater indicates that they may have control. A1c targets should be individualized based on test. duration of diabetes, age, comorbid conditions, and that their diabetes is well controlled and a value diabetes and this should be confirmed with a follow-up For someone with known diabetes, a value <7% indicates Currently, no consensus exists regarding use of For someone without known diabetes, a hemoglobin A1c other considerations. greater than or equal to 7% indicates suboptimal VITAMIN D,25-OH,TOTAL,IA Reviewed date:10/25/2024 10:26:20 AM Interpretation: Performing Lab:[facility] MigueJjsgb6103 [address] [id number] Gualberto Sesay MD Notes/Report: FASTING FASTING FASTING FASTING FASTING FASTING FASTING FASTING VITAMIN D,25-OH,TOTAL,IA 42 30-100 ng/mL Insufficiency: 20 - 29 ng/mL (This link is being provided for informational/ For 25-OH Vitamin D testing on patients on 25-OH VIT D, (D2,D3), LC/MS/MS is recommended: order D2-supplementation and patients for whom quantitation educational purposes only.) http://education.Crelow/faq/DDC792 Note 1 Optimal: > or = 30 ng/mL See Note 1 For additional information, please refer to Vitamin D Status 25-OH Vitamin D: code 90587 (patients >2yrs). of D2 and D3 fractions is required, the QuestAssureD(TM) Deficiency: <20 ng/mL VITAMIN B12/FOLATE, SERUM PA EDYTA Reviewed date:10/25/2024 10:26:20 AM Interpretation: Performing Lab:TP, [facility]Hpzhe1013 [address], [id number] Gualberto Sesay MD Notes/Report: FASTING FASTING FASTING FASTING FASTING FASTING FASTING FASTING VITAMIN B12 400 078-2161 pg/mL FOLATE, SERUM 10.7 Borderline: 3.4-5.4 Reference Range Normal: >5.4 Low: <3.4 COVID Rapid Test (Rebekah ) Reviewed date:11/13/2024 04:45:50 PM Interpretation:Negative Performing Lab: Notes/Report: Negative Urinalysis, Auto, without mi croscopy (Dip Stick) Reviewed date:11/13/2024 04:47:19 PM Interpretation: Performing Lab: Notes/Report: Urine-Color YELLOW Glucose 3+ Bilirubin NEG Ketones +- 5 MG/DL Specific [place] 1.010 Blood NEG pH 6.0 Protein NEG Urobilinogen 0.2 MG/DL Nitrite NEG Leukocytes NEG IH Rapid Strep Reviewed date:11/13/2024 04:45:11 PM Interpretation:Negative Performing Lab: Notes/Report: Negative Strep Screen, Rapid NEG IH Rapid Flu Reviewed date:11/13/2024 04:44:23 PM Interpretation:Negative Performing Lab: Notes/Report: Negative Influenza A NEG Influenza B NEG Cardiology : 2D Echo with Co kristel-Flow Doppler Reviewed date:07/16/2024 09:09:23 AM Interpretation: Performing Lab: Notes/Report: TESTOSTERONE, TOTAL, MALES ( ADULT), IA Reviewed date:04/13/2024 09:24:05 AM Interpretation: Performing Lab:TP, [facility]-[id number] [address] Hamiltonlokesh, [id number] Gualberto Sesay MD Notes/Report: 0 0 0 0 TESTOSTERONE, TOTAL, MALES (ADULT), IA 331 250-827 ng/dL XRAY, spine, sacrum and cocc yx, minimum 2 views Reviewed date:05/03/2024 08:47:17 AM Interpretation: Performing Lab: Notes/Report: CULTURE, URINE, ROUTINE Reviewed date:10/25/2024 10:26:20 AM Interpretation: Performing Lab:[facility]-Hytwm0138 [address], [id number] Gualberto Sesay MD Notes/Report: FASTING FASTING FASTING FASTING FASTING FASTING FASTING FASTING CULTURE, URINE, ROUTINE tube with either no order indicated or a source Specimen Quality: Adequate Specimen Source: Urine Micro Number: [id number] Result: No Growth We received a preserved urine culture transport CULTURE, URINE, ROUTINE Test Status: Final which is inappropriate for the test requested. A also inquire about alternative or additional we can adjust our billing appropriately. You may urine culture was performed. If this is not what testing. you intended to order, please contact your local client support manager immediately so that Reason For Referral Reason pt was dx with spira l fubila fracture at [facility] on February 2024, has not been seeing as aoutpatient ortho, BDT osteopenia Diagnosis 1 Fibula fracture (S82 .409A) Referral Organization [facility] [place] Referring Provider First Name Sophia Referring Provider Last Name Jerri Referring Provider Speciality Critical access hospital Referred Provider [facility], . Referred Provider Specialty Surgery - Or thopedic Procedure 1 Office Visit, New Pt ., Level 4 (45 min) (64067) Procedure 2 EST. PT. 25 MIN. MOD ERATE (13248) General Notes Crissy Dacosta 0 04/04/2024 11:13:52 AM >Rec'd ref req from Dr. Sánchez for ortho, sent for ref numb., eclinicalworks, support 04/04/2024 11:16:02 AM>, Authorization is based on information provided; it is not a guarantee of payment. Billed services are subject to medical necessity, appropriate setting, billing/coding, plan limits, eligibility at time of service. Verify benefits online or call Customer Service., Crissy Dacosta 04/04/2024 12:47:11 PM >Ref approved and faxed to [phone]., Radha Estrada 04/04/2024 12:55:46 PM >VOICEMAIL WASLEFT A SMS TXT WAS SENT. Clinical Notes Crissy Dacosta 0 04/04/2024 11:13:02 AM >Please fax consult notes to [phone]. Referral Priority Routine Referral Appointment Date 04/05/2024 Reason Echocardiogram Diagnosis 1 Encounter for screen ing for cardiovascular disorders (Z13.6) Referral Organization [facility] Referring Provider First Name Sophia Referring Provider Last Name Lorena Referring Provider [facility] ctice Ref[facility] Provider [facility], . Referred Provider Specialty Diagnostic T esting Procedure 1 Tte wdoppler complet e (90268) General Notes Zarina Greenwood 024 03:51:00 PM >Received referral via referral queue from Dr. Sánchez referring the pt to Radiology. This referral was created and processed for in house echo.Krystyna Leah 04/10/2024 03:51:18 PM >A TE was not sent due to pt already being contacted by front desk attendant. Referral Priority Routine Reason walking boot right s emily Diagnosis 1 Fibula fracture (S82 .409A) Referral Organization [facility] [place] Referring Provider First Name Sophia Referring Provider Last Name [facility] Referring Provider [facility] ctice Referred Provider [facility], . Referred Provider Specialty Orthotics/Pr osthetics Procedure 1 Office Visit, New Pt ., Level 4 (45 min) (41444) Procedure 2 EST. PT. 25 MIN. MOD ERATE (00852) General Notes Roseline Johnson 09/2023 09:05:59 AM >REFERRAL PLACED BY SOPHIA SÁNCHEZ IN THE [place]. [facility], eclinicalworks, support 04/26/2024 09:07:21 AM>, Authorization is based on information provided; it is not a guarantee of payment. Billed services are subject to medical necessity, appropriate setting, billing/coding, plan limits, eligibility at time of service. Verify benefits online or call Customer Service., Roseline Johnson 04/26/2024 09:18:10 AM >REFERRAL HAS BEEN APPROVED AND FAXED WITH OFFICE NOTES TO CAROLINE AT [phone], Radha Estrada 04/26/2024 09:25:51 AM >PT WAS NOTIFIED AND A SMS TXT MESSAGE WAS SENT Referral Priority Urgent Reason eval and treat and m edication management RN EVAL AND TREAT, INTERMEDIATE, OT. Diagnosis 1 Schizophrenia (F20.9 ) Referral Organization [facility] Referring Provider First Name Caitlin Referring Provider Last Name Titus Referring Provider Speciality Internal M edicine Referred Provider [facility], . Referred Provider Specialty [facility] General Notes Roseline Johnson 04/27 10:18:16 AM >HOME HEALTH REFERRAL PLACED BY CAITLIN QURESHI IN THE [place], I HAVE EMAILED THE [facility] REFERRAL FORM TO BIJAN AT [facility] FOR THE PROVIDER TO SIGN. Alex EDWARDS Makayla 05/24/2024 04:47:20 PM >REFERRAL, OFFICE NOTES AND REFERRAL FORM HAVE BEEN UPLOADED INTO THE [facility] PORTAL AND FAXED TO [facility] AT . [facility].Zach Franz 05/29/2024 11:15:59 AM >PER [facility] PORTAL PATIENT IS ASSIGNED TO [facility]. - PHONE :[phone] Referral Priority Routine Reason right ankle pain aft er a fall , needs stat x ray Diagnosis 1 Ankle pain (M25.579) Referral Organization [facility] Referring Provider First Name Sophia Referring Provider Last Name Jerri Referring Provider Speciality [facility] Referred Provider [facility], . Referred Provider Specialty Radiology Procedure 1 RT RAD EXAM ANKLE CO MPLT MINI 3 VIEWS (05616) General Notes Sandra Balatzar 2023 10:43:34 AM >This request was received via the referral queue, from PCP who is referring the patient to Radiology .This referral was created and processed., [employer]ett[employer], support 07/31/2024 10:45:40 AM>, Authorization is based on information provided; it is not a guarantee of payment. Billed services are subject to medical necessity, appropriate setting, billing/coding, plan limits, eligibility at time of service. Verify benefits online or call Customer Service., Sandra Baltazar 07/31/2024 10:52:48 AM >Referral has been authorized and faxed to specialist office. , Radha Estrada 07/31/2024 10:57:00 AM >PT WAS NOTIFIED A SMS TXT WAS SENT Clinical Notes Sandra Baltazar 2023 10:43:47 AM >: Please fax results back to PCP office [phone] Referral Priority Stat Reason having fall due to b uckling of the right knee, already had a ankle fracture few months ago Diagnosis 1 Right knee buckling (M25.361) Referral Organization [facility] [place] Referring Provider First Name Sophia Referring Provider Last Name Lorena Referring Provider [facility] Referred Provider [facility], . Referred Provider Specialty Surgery - Or thopedic Procedure 1 Office Visit, New Pt ., Level 4 (45 min) (22973) Procedure 2 EST. PT. 25 MIN. MOD ERATE (64434) Procedure 3 RT X-ray exam knee 4 or more (14641) Procedure 4 Draininject jointbur sa () Procedure 5 DRAIN/INJ JOINT/BURS A W/US () Procedure 6 Kenalog-10 MG (J3301 ) General Notes Sandra Baltazar 2023 12:58:57 PM >This STAT/ URGENT request was received via Fadi Camarena, from Pcp who is referring the patient . This referral was created and processed., [employer], support 07/31/2024 13:01:20 PM>, Authorization is based on information provided; it is not a guarantee of payment. Billed services are subject to medical necessity, appropriate setting, billing/coding, plan limits, eligibility at time of service. Verify benefits online or call Customer Service., Sandra Baltazar 07/31/2024 02:07:27 PM >Referral has been authorized and faxed to specialist office. , Radha Estrada 07/31/2024 02:12:16 PM >PT WAS NOTIFIED A SMS TXT WAS SENT Clinical Notes Brian Baltazarin 2023 12:59:02 PM >Please fax office notes. If patient cancels/misses appointment please notify our office. Thank you. Referral Priority Stat Reason MRI CERVICAL SPINE MRI LUMBAR SPINE Diagnosis 1 Cervical radiculopat hy (M54.12) Diagnosis 2 Lumbar radiculopathy (M54.16) Referral Organization [facility] Referring Provider First Name Sophia Referring Provider Last Name [facility] Referring Provider [facility] ctice Referred Provider [facility], . Referred Provider Specialty Radiology Procedure 1 Mri neck spine wo dy e (19262) Procedure 2 Mri lumbar spine wo dye (57262) General Notes Lorenza Raya 07/31/2024 03:20:11 PM >RECV'D A FAX REQUEST FROM DR LUONG FOR AN MRI CERVICAL AND LUMBAR SPINE. CREATED A REFERRAL FOR CAIN AND SENT FOR APPROVAL, [employer], support 07/31/2024 15:22:40 PM>, Authorization is based on information provided; it is not a guarantee of payment. Billed services are subject to medical necessity, appropriate setting, billing/coding, plan limits, eligibility at time of service. 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 Referred Provider Specialty Radiology Procedure 1 Radiologic examinati on, hip, bilateral, with pelvis when performed, 2 views (11987) General Notes Radha Estrada 05/2024 01:04:36 PM >I received referral from danie camarena pt will be seen at [facility] for radiology hips with pelvis referral is being completed, [employer], support 08/04/2024 13:06:40 PM>, Authorization is based on information provided; it is not a guarantee of payment. Billed services are subject to medical necessity, appropriate setting, billing/coding, plan limits, eligibility at time of service. Verify benefits online or call Customer Service., Radha Estrada 08/04/2024 01:10:56 PM >REFERRAL IS APPROVAL COMPLETED AND FAX WITH A AUTH Clinical Notes Radha Estrada 05/2024 01:03:16 PM >PLEASE FAX CONSULTS NOTES TO [facility] AT [phone] Referral Priority Routine Reason Home Health Aid- Pat ient needs assistance with taking medications, cleaning the house, going to medical appointments. RN EVAL AND TREAT Diagnosis 1 Dementia in other di seases classified elsewhere, unspecified severity, without behavioral disturbance, psychotic disturbance, mood disturbance, and anxiety (F02.80) Referral Organization [facility] Referring Provider First Name Sophia Referring Provider Last Name Jerri Referring Provider Speciality Family Pra ctice Referred Provider [facility], . Referred Provider Specialty Home Health General Notes Aggie Avitia 1 11/13/2023 09:00:09 AM >This is not a covered service under medicare unless the pt has a qualifying skill in the home., Kaushik Tomlin 09/12/2024 09:54:34 AM >UNDERSTOOD. WILL TRY TO SEE WHAT ONE HOME IN CASE., HOME HEALTH REFERRAL PLACED BY SOPHIA SÁNCHEZ IN THE [place], I HAVE EMAILED THE [facility] REFERRAL FORM TO [facility] FOR PCP TO SIGN.Nabor Joe 09/13/2024 10:51:08 AM >REFERRAL, REFERRAL REQUEST FORM, AND PROGRESS NOTES [facility]ED [facility] 10/09/2024 08:37:29 AM > PER TE RECIEVED ON 10/08/2024, [facility] DOES NOT OFFER SERVICE. INSTEAD, THEY HAVE OFFERED AN ALTERNATIVE NUMBER FOR PATIENT TO RECIEVE THE TYPE OF SERVICE REQUESTED. CALLED PT. TO PROVIDE INFO BUT NO RESPONSE. WILL TRY AGAIN LATER. Referral Priority Routine Reason Wants to be transfer red to [address] Diagnosis 1 Falls (R29.6) Diagnosis 2 Dementia in other di seases classified elsewhere, unspecified severity, without behavioral disturbance, psychotic disturbance, mood disturbance, and anxiety (F02.80) Diagnosis 3 Assistance needed fo r personal hygiene (Z74.1) Referral Organization [facility] Referring Provider First Name Sophia Referring Provider Last Name Jerri Referring Provider [facility] fredyingrid Referred Provider [address], . Referred Provider Specialty Physical Med icine and Rehabilitation Procedure 1 PT EVAL LOW COMPLEX 20 MIN (90589) Procedure 2 PT EVAL MOD COMPLEX 30 MIN (68436) Procedure 3 PT EVAL HIGH COMPLEX 45 MIN (50039) General Notes Doug Estrada 0 10/05/2024 10:41:06 AM >Received referral from Fadi Soriano , Referral was created and processed to the office. Once approved the referral will be faxed back to the specialist. Consult notes requested to be sent back to pcp., Doug Estrada 10/05/2024 10:41:25 AM >REFERRAL COMPLETED AND FAXED TO PHILLY AT , COMPLETED AND FAXED, Radha Estrada 10/05/2024 11:20:02 AM >PT VM IS FULL I SENT A SMS TXT Clinical Notes Doug Estrada 0 10/05/2024 10:41:33 AM >Please fax all consult notes [facility] . If pt no shows or cancels please let us know., Urmila Taylor 12/12/2024 04:07:13 PM >LEFT MESSAGE, THEY CLOSE AT 4PM ON WEDNESDAYS Referral Priority Routine Reason SIMA WEI - DR ALLISON GA OV- EVAL AND TREAT Diagnosis 1 Abdominal pain (R10. 9) Referral Organization [facility] Referring Provider First Name Sophia Referring Provider Last Name Jerri [facility] Provider [address]A AGU[address]A [address], . Referred Provider Specialty Gastroentero logy Procedure 1 Office Visit, New Pt ., Level 4 (45 min) (73053) Procedure 2 EST. PT. 25 MIN. MOD ERATE (67944) General Notes Dana Mckeon 04/2025 01:16:23 PM >REF REQ VIA FAX FROM [facility] - SIMA SANJUANA - [place] - PLACED STAT VIA TEAMS - REF CREATED, jeison, support 10/03/2024 13:17:40 PM>, Authorization is based on information provided; it is not a guarantee of payment. Billed services are subject to medical necessity, appropriate setting, billing/coding, plan limits, eligibility at time of service. Verify benefits online or call Customer Service., MckeonClariceDana 10/03/2024 01:19:16 PM >PROCESSED AND COMPLETED - FAXED TO REQUESTOR - BRANDT RANKIN [phone] Clinical Notes Clarice Mckeonberly 04/2025 01:19:28 PM >PLEASE FAX ALL CONSULT NOTES AND RESULTS TO PCP: KEREN SIDDIQUI - ALONG WITH ANY NOTIFICATIONS OF CANCELLATIONS OR NO-SHOWS- THANK YOU., Urmila Taylor 12/21/2024 03:04:38 PM >PATIENT NO SHOWED FOR HIS APPT ON 10-04-2024 Referral Priority Routine Referral Appointment Date 10/04/[address] [facility], AYED Diagnosis 1 Acute anemia (D64.9) Referral Organization [facility] Referring Provider First Name Sophia Referring Provider Last Name Lorena Referring Provider Speciality [facility] ctice Referred Provider [facility] Referred Provider Specialty Hematology/O ncology Procedure 1 Office Visit, New Pt ., Level 4 (45 min) (71092) Procedure 2 EST. PT. 25 MIN. MOD ERATE (06866) General Notes Lorenza Raya 10/24/2024 02:42:18 PM >RECV'D A FAX REQUEST FROM [facility] TO ESTABLISH CARE. CREATED A REFERRAL AND SENT FOR APPROVAL, jeison, support 10/24/2024 14:44:00 PM>, Incorrect number of visits, Procedure quantity value must be between 1 and 99, [employer], support 10/24/2024 16:09:40 PM>, Authorization is based on information provided; it is not a guarantee of payment. Billed services are subject to medical necessity, appropriate setting, billing/coding, plan limits, eligibility at time of service. Verify benefits online or call Customer Service., Giorgio Raya 10/24/2024 04:10:28 PM >APPROVED AND FAXED TO [phone] Clinical Notes Lorenza Raya navneet 10/24/2024 02:42:31 PM >PLEASE FAX NOTES TO [facility]. THANK YOU! Referral Priority Routine Reason pt on Divalproex sin ce 08/2024 due to seizures, taking 500mg BID, therapeutic level at d/c from MD alvin believes seizures caused by to many pain meds prescribed at the same time by pain management. brain athrophy, cxognitive impairment, DM uncontrolled, non compliance. Diagnosis 1 Epilepsy, unspecifie d, not intractable, without status epilepticus (G40.909) Referral Organization [facility] Referring Provider First Name Sophia Referring Provider Last Name Jerri Referring Provider [facility] Referred Provider MARYANN FRANCOIS Referred Provider Specialty Neurology Procedure 1 Office Visit, New Pt ., Level 4 (45 min) (83772) Procedure 2 EST. PT. 25 MIN. MOD ERATE (31477) General Notes Sandra Baltazar 2024 11:51:46 AM >This request was received via Fadi Camarena, from Pcp who is referring the patient . This referral was created and processed., [employer], support 11/01/2024 11:54:21 AM>, The referral reason exceeds the length 264 allowed by [facility], [employer], support 11/02/2024 09:48:00 AM>, Authorization is based on information provided; it is not a guarantee of payment. Billed services are subject to medical necessity, appropriate setting, billing/coding, plan limits, eligibility at time of service. Verify benefits online or call Customer Service.Giovanny Jasmin 11/02/2024 09:50:44 AM >Referral has been authorized and faxed to specialist office. , Aggie Avitia 11/02/2024 09:53:55 AM >pt notified of neurology referral via sms and voice message with information.Moses Shaik 12/26/2024 07:54:33 PM >REFERRAL NOT CLOSED, AUTH TYPE IS PENDING Clinical Notes Sandra Baltazar 02/06/ 2025 11:51:41 AM >Please fax office notes. If patient cancels/misses appointment please notify our office. Thank you. Referral Priority Routine Referral Appointment Date 11/08/2024 Reason OFFICE VISIT Diagnosis 1 Chronic pain syndrom e (G89.4) Referral Organization [facility] Referring Provider First Name Sophia Referring Provider Last Name Jerri Referring Provider [facility] Referred Provider YVETTE LUONG Referred Provider Specialty Pain Managem ent Procedure 1 EST. PT. 25 MIN. MOD ERATE (75008) General Notes Lorenza Raya navneet 12/17/2024 02:30:21 PM >RECV'D A FAX REQUEST FROM DR LUONG FOR AN OV. CREATED A REFERRAL AND SENT FOR APPROVAL, [employer], support 12/17/2024 14:32:00 PM>, Authorization is based on information provided; it is not a guarantee of payment. Billed services are subject to medical necessity, appropriate setting, billing/coding, plan limits, eligibility at time of service. Verify benefits online or call Customer Service., Neha Rayakeisha 12/17/2024 03:18:30 PM >APPROVED AND FAXED TO [phone] Clinical Notes Lorenza Raya navneet 12/17/2024 02:30:33 PM >PLEASE FAX NOTES TO [facility], THANK YOU! Referral Priority Routine Reason EEG Awake and Drowsy Diagnosis 1 Other seizures (G40. 89) Diagnosis 2 Anxiety related trem or (R25.1) Referral Organization [facility] Referring Provider First Name Sophia Referring Provider Last Name Jerri [facility] Referred Provider MARYANN FRANCOIS Referred Provider Specialty Neurology Procedure 1 Eeg awake and drowsy (65497) General Notes Aggie Avitia 0 01/01/2025 02:35:46 PM >recv'd fax request from dr francois office requestng auth for upcoming eeg appt. referral was created and submitted for approval., [employer], support 01/01/2025 14:37:20 PM>, Authorization is based on information provided; it is not a guarantee of payment. Billed services are subject to medical necessity, appropriate setting, billing/coding, plan limits, eligibility at time of service. Verify benefits online or call Customer Service., Aggie Avitia 01/01/2025 02:50:53 PM >referral was approved and faxed back to dr francois office. Clinical Notes Aggie Avitia 0 01/01/2025 02:35:05 PM >please [facility]. thank you Referral Priority Routine Referral Appointment Date 01/01/2025 Reason RN evaluation, OT an d PT 3 times per week for 4 weeks RN EVAL AND TREAT Diagnosis 1 Repeated falls (R29. 6) Diagnosis 2 Muscle weakness (M62 .81) Referral Organization [facility] Referring Provider First Name Sophia Referring Provider Last Name Jerri Referring Provider [facility] ctice Referred Provider [facility], . Referred Provider Specialty Home Health General Notes Roseline Johnson 09/27 08:40:36 AM >HOME HEALTH REFERRAL PLACED BY SOPHIA S[facility]NCHEZ IN THE [facility], I HAVE EMAILED THE ONE HOME REFERRAL FORM TO [place] AT [facility] FOR PCP TO SIGN. MRPAlex Makayla 10/18/2024 03:25:05 PM >REFERRAL, OFFICE NOTES AND REFERRAL FORM HAVE BEEN FAXED TO [facility] AT VIA SureDone. MRP Referral Priority Routine Reason EMG/NCS Diagnosis 1 Displacement of lumb ar disc with radiculopathy (M51.16) Diagnosis 2 Acute painful diabet ic polyneuropathy (E11.42) Referral Organization [facility] Referring Provider First Name Sophia Referring Provider Last Name Jerri Referring Provider [facility] ctice Referred Provider YVETTE LUONG Referred Provider Specialty Pain Managem ent Procedure 1 Musc test done wn te st comp (05669) Procedure 2 Nrv cndj test 11-12 studies (91927) Procedure 3 Autonomic nrv parasy m inervj (41398) Procedure 4 Autonomic nrv syst f unj test (62433) Procedure 5 Autonomic nrv adrenr g inervj (42129) General Notes Kely Nash 08/22/2024 08:33:40 AM >RCVD A REFERRAL REQUEST IN THE INCOMING FAX QUE FOR PATIENT TO SEE SPECIALIST OFFICE. REFERRAL HAS BEEN CREATED., [employer], support 08/22/2024 08:35:41 AM>, Authorization is based on information provided; it is not a guarantee of payment. Billed services are subject to medical necessity, appropriate setting, billing/coding, plan limits, eligibility at time of service. Verify benefits online or call Customer Service., Kely Nash 08/22/2024 09:43:30 AM >AUTHORIZATION HAS BEEN OBTAINED. A COPY OF THIS AUTH HAS BEEN FAXED TO SPECIALIST OFFICE . THANKS Clinical Notes Kely Nash 08/22/2024 08:33:47 AM >PLEASE FAX ALL NOTES TO [facility] AT [phone]. THANKS Referral Priority Routine Reason Coccygeal Nerve Bloc k Diagnosis 1 Coccyalgia (M53.3) Referral Organization [facility] Referring Provider First Name Sophia Referring Provider Last Name [facility] Referring Provider [facility] Referred Provider YVETTE LUONG Referred Provider Specialty Pain Managem ent Procedure 1 N block other periph eral (18704) General Notes Aggie Avitia 1 10/13/2023 03:47:17 PM >recv'd fax request from dr luong requesting auth for injections. referral was created and submitted for approval., [employer], support 08/13/2024 15:49:01 PM>, Authorization is based on information provided; it is not a guarantee of payment. Billed services are subject to medical necessity, appropriate setting, billing/coding, plan limits, eligibility at time of service. Verify benefits online or call Customer Service., Aggie Avitia 08/13/2024 04:03:56 PM >referral was approved and faxed back to dr luong office. Clinical Notes Aggie Avitia 1 10/13/2023 03:46:46 PM >please fax notes [facility] to [facility]. thank you Referral Priority Routine Referral Appointment Date 08/17/2024 Reason Velocity ankle brace Diagnosis 1 Displaced oblique fr acture of shaft of right fibula, initial encounter for closed fracture (S82.431A) Referral Organization [facility] Referring Provider First Name Sophia Referring Provider Last Name [facility] Referring Provider [facility] Referred Provider [facility], . Referred Provider Specialty DME Procedure 1 AFO MXILIGUS ANK SUP P PRFAB W/FIT&A (L1906) General Notes Crissy Dacosta 0 06/19/2024 07:07:08 PM >Rec'd ref req from ortho for velocity ankle brace, sent for ref numb., [employer], support 06/19/2024 19:10:40 PM>, Authorization is based on information provided; it is not a guarantee of payment. Billed services are subject to medical necessity, appropriate setting, billing/coding, plan limits, eligibility at time of service. Verify benefits online or call Customer Service., Crissy Dacosta 06/19/2024 07:12:24 PM >Ref approved and faxed to [phone]. Clinical Notes Crissy Dacosta 0 06/19/2024 07:07:29 PM >Please fax consult notes to [phone]. Referral Priority Routine Reason refer to Dr Yvette Peters Diagnosis 1 Chronic pain (G89.29 ) Referral Organization [facility] [place] Referring Provider First Name Sophia Referring Provider Last Name Jerri Referring Provider [facility] Referred Provider YVETTE LUONG Referred Provider Specialty Pain Managem ent Procedure 1 EST. PT. 25 MIN. MOD ERATE (62900) General Notes Crissy Dacosta 0 06/13/2024 12:59:57 PM >rec'd ref req from Dr. Sánchez for pain management f/u, sent for ref numb., [employer], support 06/13/2024 13:02:20 PM>, Authorization is based on information provided; it is not a guarantee of payment. Billed services are subject to medical necessity, appropriate setting, billing/coding, plan limits, eligibility at time of service. Verify benefits online or call Customer Service., Crissy Dacosta 06/13/2024 03:36:42 PM >Ref approved and faxed to [phone]., Radha Estrada 06/13/2024 04:02:13 PM >PT WAS NOTIFIED A SMS TXT WAS SENT Clinical Notes Crissy Dacosta 0 06/13/2024 01:00:22 PM >Please fax consult notes to [phone]. Referral Priority Routine Referral Appointment Date 07/24/2024 Reason XRAY CERVICAL SPINE Diagnosis 1 Cervical pain (neck) (M54.2) Referral Organization [facility] Referring Provider First Name Sophia Referring Provider Last Name Jerri Referring Provider [facility] Referred Provider [facility], . Referred Provider Specialty Radiology Procedure 1 X-ray exam neck spin e 2-3 vw (38666) General Notes Asiya Perry 05/29/2024 11:33:33 AM >REF REQ VIA QUEUE FOR CERVICAL SPINE XRAY COMPLETED. WAITING FOR AUTH, [employer], support 05/29/2024 11:35:01 AM>, Authorization is based on information provided; it is not a guarantee of payment. Billed services are subject to medical necessity, appropriate setting, billing/coding, plan limits, eligibility at time of service. Verify benefits online or call Customer Service., Josué Asiya Steele Deangelo 05/29/2024 11:46:10 AM >REF AUTH FAXED TO [phone] FOR AN APPTShane Catherine M 05/29/2024 03:01:42 PM >SMS TEXT AND VOICE MESSAGE SENT Clinical Notes Asiya Perry 05/29/2024 11:33:12 AM >PLEASE CALL PATIENT TO SCHEDULE AN APPOINTMENT AND FAX PATIENT'S CLINICALS BACK TO US AFTER THE APPOINTMENT. THANK YOU. Referral Priority Routine Reason XRAY, spine, sacrum and coccyx, minimum 2 views Diagnosis 1 Chronic pain syndrom e (G89.4) Referral Organization [facility] Referring Provider First Name Sophia Referring Provider Last Name Jerri Referring Provider [facility] Referred Provider [facility], . Referred Provider Specialty Radiology Procedure 1 X-ray exam sacrum ta jack (43336) General Notes Zarina Greenwood 024 02:26:50 PM >Received referral via referral queue from Dr. Sánchez referring the pt to Radiology . This referral was created and processed for [place] [facility]., [employer], support 04/10/2024 14:28:40 PM>, Authorization is based on information provided; it is not a guarantee of payment. Billed services are subject to medical necessity, appropriate setting, billing/coding, plan limits, eligibility at time of service. Verify benefits online or call Customer Service., Zarina Greenwood 04/10/2024 02:48:25 PM >A copy of the referral was faxed to their office a [phone]. I requested the results to be sent back to the PCP for review., Radha Estrada 04/10/2024 02:55:11 PM >PATIENT WAS NOTIFIED A SMS TXT WAS SENT. Clinical Notes Zarina Greenwood 024 02:26:35 PM >PLEASE CONTACT THE PT TO SCHEDULE AN APPT. IF PT MISSES/CANCELS APPT PLEASE NOTIFY US. CLINICAL NOTES CAN BE FAXED TO [phone] Referral Priority Routine Referral Appointment Date 04/27/2024 Reason Pnuematic Tall Walki ng Boot Diagnosis 1 Displaced oblique fr acture of shaft of right fibula, initial encounter for closed fracture (S82.431A) Referral Organization [facility] Referring Provider First Name Sophia Referring Provider Last Name Jerri Referring Provider [facility], . Referred Provider Specialty DME Procedure 1 WALKING BOOT PNEUMAT IC AND/OR VAC (L4361) General Notes Lorenza Raya 04/10/2024 11:42:26 AM >Recv'd a fax request from [facility] [place] for a Walking Boot to be ordered through [facility]. Created a referral and sent for approval, [employer], support 04/10/2024 11:45:02 AM>, Authorization is based on information provided; it is not a guarantee of payment. Billed services are subject to medical necessity, appropriate setting, billing/coding, plan limits, eligibility at time of service. Verify benefits online or call Customer Service., Giorgio Raya 04/10/2024 01:17:23 PM >Auth approved and faxed to [facility] Clinical Notes Lorenza Raya 04/10/2024 11:43:14 AM >Please contact [facility] for any questions. Thank you! Referral Priority Routine Reason refer to Dr Yvette Peters Diagnosis 1 Chronic pain syndrom e (G89.4) [facility] Referring Provider First Name Sophia Referring Provider Last Name Jerri Referring Provider [facility] radha Referred Provider YVETTE LUONG Referred Provider Specialty Pain Managem ent Procedure 1 Office Visit, New Pt ., Level 4 (45 min) (12750) Procedure 2 EST. PT. 25 MIN. MOD ERATE (09707) General Notes Zarina Greenwood 03:20:30 PM >Received referral via referral queue from referring the pt to Pain Management. This referral was created and processed for Dr. Luong., [employer], support 04/09/2024 15:22:01 PM>, Authorization is based on information provided; it is not a guarantee of payment. Billed services are subject to medical necessity, appropriate setting, billing/coding, plan limits, eligibility at time of service. Verify benefits online or call Customer Service., Krystyna Zarina 04/09/2024 03:47:05 PM >A copy of the referral was faxed to their office a [phone]. I requested the results to be sent back to the PCP for review., Radha Estrada 04/09/2024 03:56:14 PM >PATIENT WAS NOTIFIED A SMS TXT WAS SENT Clinical Notes Zarina Greenwood 03:20:33 PM >PLEASE CONTACT THE PT TO SCHEDULE AN APPT. IF PT MISSES/CANCELS APPT PLEASE NOTIFY US. CLINICAL NOTES CAN BE FAXED TO [phone] Referral Priority Routine Reason eval and treat Diagnosis 1 Displacement of lumb ar disc with radiculopathy (M51.16) [facility] Referring Provider First Name Sophia Referring Provider Last Name Jerri [facility] Referred Provider MARYANN FRANCOIS Referred Provider Specialty Neurology Procedure 1 Musc test done wn te st comp (20633) Procedure 2 Nrv cndj test 9-10 s tudies (20339) Procedure 3 Nrv cndj test 11-12 studies (92626) General Notes Savannah Sanders 04:09:16 PM >REFERRAL RECEIVED VIA FAX PROCESSED AND FAXED FOR AUTHORIZATION FOR [facility] FOR NEUROLOGY.THANKS, [employer], support 01/09/2025 16:10:41 PM>, Authorization is based on information provided; it is not a guarantee of payment. Billed services are subject to medical necessity, appropriate setting, billing/coding, plan limits, eligibility at time of service. Verify benefits online or call Customer Service., SandersSavannah 01/09/2025 04:31:02 PM >REFERRAL COMPLETED AND FAXED TO [facility] @ [phone].THANKS Clinical Notes Savannah Sanders 04:09:20 PM >PLEASE FAX ALL CONSULT NOTES AND OR PROCEDURES BACK TO PCP PERTAINING TO THIS REFERRAL @ [phone].THANKS, PLEASE CONTACT PATIENT FOR APPT.THANKS Referral Priority Urgent Medications Medication SIG (Take, Route, Frequency, Duration) Notes Start Date End Date Status Fluticasone Propionate 50 MCG/ACT 1 spray in each nostril Nasally Twice a day for 30 days 11/13/2024 Active Tamsulosin HCl 0.4 MG 1 capsule Orally e very night for 90 days 11/13/2024 Active Aspirin 81 81 MG 1 tablet Orally Once a day Active Buprenorphine 5 MCG/HR APPLY ONE PATCH T O THE SKIN EVERY WEEK FOR NONACUTE PAIN Transdermal for Not Available Active Rosuvastatin Calcium 40 MG 1 tablet Orally Once a day for 90 days Active DULoxetine HCl 60 MG TAKE 1 CAPSULE BY M OUTH DAILY for 90 Active Diclofenac Potassium 25 MG 1 capsule as needed Orally Four times a day for 30 days Active traZODone HCl 100 MG 1 tablet at bedtime Orally Once a day for sleep Active Divalproex Sodium 250 MG TAKE TWO TABLET S BY MOUTH TWICE A DAY Oral for Not Available Active CeleBREX 200 MG 1 capsule with food Orally Once a day for 30 days 10/24/2024 Not-Taking Metoprolol Succinate ER 25 MG Take 2 tablets Orally Once a day for 90 days Active DULoxetine HCl 30 MG TAKE 1 CAPSULE BY M OUTH DAILY for 90 Active Lisinopril 2.5 MG 1 tablet Orally Once a day for 90 days 04/09/2024 Not-Taking Gabapentin 300 MG 2 capsule Orally twi ce a day for 90 days Active Lantus 100 UNIT/ML as directed 24Units Subcutaneous Active metFORMIN HCl 850 MG 1 tablet with a whitney l Orally Twice a day for 90 days Active Trulicity 1.5 MG/0.5ML inject 1.5mg Subcutaneously once a week Active Omeprazole 40 MG 1 capsule 30 minutes before morning meal Orally Once a day for 90 days Active QUEtiapine Fumarate 100 MG TAKE 1 TABLET BY MOUTH AT BEDTIME for 90 Active Immunizations Vaccine Route Administration Date Status Comme nts COVID-19 Vaccine Moderna 1st dose IM Intramuscular 01/08/2021 Administered Pt tolerated vaccine well. No adverse reaction to vaccine. COVID-19 Vaccine Moderna 1st dose Unknown 01/08/2021 Administered Administered at [facility] Influenza (Flucelvax Multi Dose), trivalent (ccIIV3), derived from cell cultures, subunit, antibiotic free, 0.5-mL dosage, for intramuscular use IM Intramuscular 06/05/2024 Administered Influenza Flucelvax (CCIIV4) (single-dose syringe) IM Intramuscular 06/17/2020 Administered given by [facility] Pneumococcal Conjugate PCV20 (Prevnar 20) IM Intramuscular 04/09/2024 Administered Shingles RZV (Shingrix) Unknown 06/18/2020 Administered given by [facility] Shingles RZV (Shingrix) IM Intramuscular 08/29/2020 Administered LOT # [id number], GS K Social History Tobacco Use: Social History Observation Description Date Details (start date - stop date) Never Smoker NA - NA Tobacco Use/Smoking Question Answer Notes Are you a nonsmoker Additional Findings: Tobacco Non-User Current no n-smoker Sexual History Question Answer Notes Had sex in the past 12 months (vaginal, oral, or anal)? No Have you ever had a Sexually transmitted disease ? No AUDIT-C (Standard) Question Answer Notes Did you have a drink containing alcohol in the p ast year? No Points 0 Interpretation Negative Section Notes: PATIENT IS ON DISABILITY, KARRIE BALDERAS IS HIS SISTER DENG, HE HAS A SON IN [place], HE DOES NOT USE STREET [employer] PATIENT IS ON DISABILITY, KARRIE BALDERAS IS HIS SISTER DENG, HE HAS A SON IN [place], HE DOES NOT USE STREET [employer]UGS PATIENT IS ON DISABILITY, KARRIE BALDERAS IS HIS SISTER DENG, HE HAS A SON IN [place], HE DOES NOT USE STREET [employer]UGS PATIENT IS ON DISABILITY, KARRIE BALDERAS IS HIS SISTER DENG, HE HAS A SON IN [place], HE DOES NOT USE STREET [employer]UGS PATIENT IS ON DISABILITY, KARRIE BALDERAS IS HIS SISTER DENG, HE HAS A SON IN [place], HE DOES NOT USE STREET [employer]UGS Problems Problem Type SNOMED Code ICD Code Onset Dates Problem Status W/U Status Risk Notes Problem Hyperlipidemia (78301880) Hyperlipidemia (E78.5) Active confirmed Problem Gastroesophageal reflux disease (447866267) GERD (gastroesophageal reflux disease) (K21.9) Active confirmed Problem Mixed hyperlipidemia (520675380) Mixed hyperlipidemia (E78.2) Inactive confirmed Stable Problem Chronic kidney disease stage 1 (383647278) Chronic kidney disease, stage I (N18.1) Inactive confirmed Problem Testicular hypofunction (033117778) 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 confirmed Stable Problem Chronic diastolic heart failure (921204683) Chronic diastolic (congestive) heart failure (I50.32) Active confirmed Problem Chronic pain (43961873) Chronic pain (G89.29) Active confirmed Problem Bipolar disorder (35960167) Bipolar disorder (F31.9) Active confirmed Problem Long-term current use of insulin (535144635) Insulin long-term use (Z79.4) Active confirmed Problem Schizophrenia (26069470) Schizophrenia (F20.9) Active confirmed Problem 680932540 Essential tremor (G25.0) Active confirmed Stable Problem Atherosclerosis of aorta (75744340) Aortic atherosclerosis (I70.0) Active confirmed Problem Altered mental status (906646380) Altered mental status (R41.82) Active confirmed Problem Chronic pain syndrome (112843767) Chronic pain syndrome (G89.4) Active confirmed Stable Problem Osteoarthritis (480141906) Unspecified osteoarthritis, unspecified site (M19.90) Active confirmed Problem Hyperglycemia due to type 2 diabetes mellitus (978750410394345) Type 2 diabetes mellitus with hyperglycemia (E11.65) Inactive confirmed Stable Problem Essential hypertension (76602005) Essential (primary) hypertension (I10) Inactive confirmed Stable Problem Abnormal glucose level (787232199) Other abnormal glucose (R73.09) Inactive confirmed Problem Anxiety disorder (846014639) Anxiety disorder, unspecified (F41.9) Active confirmed Problem Bipolar disorder (27445758) Bipolar disorder, unspecified (F31.9) Active confirmed Problem Moderate recurrent major depression (46436433) Major depressive disorder, recurrent, moderate (F33.1) Active confirmed Problem Epilepsy (30113782) Epilepsy, unspecified, not intractable, without status epilepticus (G40.909) Active confirmed Problem Bronchiolectasis (80003454) Bronchiectasis, uncomplicated (J47.9) Active confirmed Problem 728908225 Post-void dribbling (N39.43) Active confirmed Problem Impotence of organic origin (594182582) Male erectile dysfunction, unspecified (N52.9) Active confirmed Problem 99175924 Ataxic gait (R26.0) Active confirmed Problem Recurrent falls (742631076) Repeated falls (R29.6) Active confirmed Problem Problem, abnormal examination (91869232) Encounter for general adult medical examination with abnormal findings (Z00.01) Problem resolved confirmed Problem Viral screening (419613021) Encounter for screening for other viral diseases (Z11.59) Problem resolved confirmed Problem Normal body mass index (72394016) Body mass index (BMI) 24.0-24.9, adult (Z68.24) Problem resolved confirmed Problem Counseling (150978079) Other specified counseling (Z71.89) Problem resolved confirmed Problem Nicotine dependence (91708845) Personal history of nicotine dependence (Z87.891) Inactive confirmed Problem Bladder incontinence (448946973) Bladder incontinence (R32) Active confirmed Problem Nicotine dependence (16140481) Nicotine dependence (F17.200) Active confirmed Problem Chronic kidney disease stage 2 (236154710) Chronic kidney disease (CKD), stage II (mild) (N18.2) Active confirmed Problem 104310666 Benign prostatic hyperplasia with lower urinary tract symptoms (N40.1) Active confirmed Problem Atherosclerosis of southern [place] arteries of the extremities (176791004564926) Bilateral atherosclerosis of legs (I70.203) Inactive confirmed Problem Displacement of thoracic intervertebral disc without myelopathy (24522297) Bulge of thoracic disc without myelopathy (M51.24) Active confirmed Problem Type 2 diabetes mellitus with peripheral angiopathy (327788145) Controlled diabetes mellitus with diabetic peripheral angiopathy without gangrene (E11.51) Inactive confirmed Problem Polyneuropathy due to type 2 diabetes mellitus (440700639) Diabetes mellitus type II with polyneuropathy (E11.42) Active confirmed Problem Polyneuropathy due to type 2 diabetes mellitus (609374091) Diabetes mellitus type II with polyneuropathy (E11.42) Active confirmed Problem Diabetes mellitu s II with other specified complication (E11.69) Active confirmed Problem 749157644 Penile lump (N48.89) Inactive confirmed Stable Problem Cervical spondylosis without myelopathy (480229392) Cervical spondylosis without cord compression (M47.812) Active confirmed Problem Diabetic renal disease (218999010) Diabetes mellitus with chronic kidney disease (E11.22) Active confirmed Problem Dementia (82080965) Dementia in other diseases classified elsewhere, unspecified severity, without behavioral disturbance, psychotic disturbance, mood disturbance, and anxiety (F02.80) Active confirmed Vital Signs Heart Rate 115 /min 11/13/2024 Emani Hammond 11/13/2024 04:12:05 PM EST > Temperature 98.0 degrees Fahrenheit 11/13/2024 Will Carly warren 11/13/2024 04:12:05 PM EST > Respiratory Rate 17 /min 11/13/2024 Navneet Hammond 11/13/2024 04:12:05 PM EST > Oximetry 93 % 11/13/2024 Emani Hammond 11/13/2024 04:12:05 PM EST > Blood pressure diastolic 82 mm Hg 11/13/2024 Raymond Carly caldera 11/13/2024 04:12:05 PM EST > Height 69 inches 11/13/2024 Emani Hammond 11/13/2024 04:12:05 PM EST > Blood pressure systolic 116 mm Hg 11/13/2024 Will Carly warren 11/13/2024 04:12:05 PM EST > Weight 154.2 lbs 11/13/2024 Emani Hammond 11/13/2024 04:12:05 PM EST > BMI 22.77 kg/m2 11/13/2024 Emani Hammond 11/13/2024 04:12:05 PM EST > Procedures Procedure Date Ordered Date Performed Result Body Sit e Monofilament 04/09/2024 04/09/2024 N/A Encounters Encounter Location Date Provider Diagnosis [facility] [address] [place] [phone] 03/28/2024 Sophia Sánchez [facility] [address] [place] [phone] 04/03/2024 Sophia Yssa [facility] [address] [place] [id number] 04/24/2024 Sophia Yssa [facility] [address] [place] [phone] 04/25/2024 Sophia Sánchez Fibula fracture S82.409A [facility] [address] [place] [phone] 04/26/2024 Sophia Yssa [facility] [address] [place] [phone] 04/26/2024 Sophia Yssa [facility] [address] [place] [phone] 04/30/2024 Sophia Yssa [facility] [address] [place] [phone] 04/30/2024 Sophia Yssa [facility] [address] [place] [phone] 05/02/2024 Sophia Yssa [facility] [address] [place] [phone] 05/18/2024 Sophia Yssa [facility] [address] [place] [phone] 05/21/2024 Sophia Yssa [facility] [address] [place] [phone] 05/21/2024 Sophia Yssa [facility] [address] [place] [phone] 05/22/2024 Sophia Yssa [facility] [address] [place] [phone] 05/22/2024 Sophia Yssa [facility] [address] [place] [phone] 05/22/2024 Sophia Yssa [facility] [address] [place] [address] 05/22/2024 Sophia Yssa [facility] [address] [place] [address] 05/23/2024 Sophia Yssa [facility] [address] [place] [address] 05/24/2024 Sophia Yssa [facility] [address] [place] [address] 05/29/2024 Sophia Yssa [facility] [address] [place] [address] 05/30/2024 Sophia Yssa [facility] [address] [place] [phone] 06/04/2024 Sophia Yssa [facility] [address] [place] [address] 06/04/2024 Sophia Yssa [facility] [address] [place] [address] 06/08/2024 Sophia Yssa [facility] [address] [place] [address] 06/14/2024 Sophia Yssa [facility] [address] [place] [phone] 06/15/2024 Sophia Carrillosa [facility] [address] [place] [phone] 06/21/2024 Sophia Yssa [facility] [address] [place] [address] 07/03/2024 Sophia Yssa [facility] [address] [place] [address] 07/05/2024 Sophia Yssa [facility] [address] [place] [phone] 07/06/2024 Sophia Yssa [facility] [address] [place] [phone] 07/09/2024 Sophia Yssa [facility] [address] [place] [phone] 07/09/2024 Sophia Yssa [facility] [address] [place] [phone] 07/10/2024 Sophia Sánchez [facility] [address] [place] [phone] 07/10/2024 Sophia Sánchez [facility] [address] [place] [phone] 07/11/2024 Sophia Sánchez [facility] [address] [place] [phone] 07/11/2024 Sophia Sánchez [facility] [address] [place] [phone] 07/11/2024 Sophia Sánchez [facility] [address] [place] [phone] 07/30/2024 Sophia Sánchez [facility] [address] [place] [phone] 07/30/2024 Sophia Sánchez Diabetes mellitus wi th chronic kidney disease E11.22 [facility] [address] [place] [phone] 08/02/2024 Sophia Sánchez [facility] [address] [place] [phone] 08/08/2024 Sophia Sánchez Diabetes mellitus wi th chronic kidney disease E11.22 [facility] [address] [place] [phone] 08/21/2024 Sophia Sánchez [facility] [address] [place] [phone] 08/22/2024 Sophia Sánchez [facility] [address] [place] [phone] 08/23/2024 Sophia Sánchez [facility] [address] [place] [phone] 08/30/2024 Sophia Sánchez [facility] [address] [place] [phone] 09/03/2024 Sophia Sánchez [facility] [address] [place] [phone] 09/10/2024 Sophia Sánchez Schizophrenia, unspecified type F20.9 [facility] [address] [place] [phone] 09/10/2024 Sophia Jerri Dementia in other diseases classified elsewhere, unspecified severity, without behavioral disturbance, psychotic disturbance, mood disturbance, and anxiety F02.80 [facility] [address] 09/11/2024 [facility] [address] 09/11/2024 [facility] [address] [place] [address] 09/12/2024 Sophia Carrillosa [facility] [address] [place] [phone] 09/20/2024 Sophia Carrillosa [facility] [address] [address] 09/24/2024 Sophia Carrillosa [facility] [address] 09/28/2024 Sophia Lorena [facility] [address] [place] [address] 09/28/2024 Sophia Sánchez [address] [address] 09/28/2024 Sophia S[facility]chez [facility] [address] 10/01/2024 Sophia Sánchez [facility] [address] 10/04/2024 Sophia Lorenasa [facility] [address] [place] [address] 10/08/2024 Sophia S[facility]chez [facility] [address] 10/11/2024 Sophia Yssa [facility] [address] [place] [address] 10/16/2024 Sophia Lorenasa [facility] [address] [place] [address] 10/17/2024 Sophia Sánchez Repeated falls R29.6 and Muscle weakness M62.81 [facility] [address] [place] [address] 10/17/2024 [facility] [address] 10/17/2024 Sophia Sánchez Diabetes mellitus ty pe II with polyneuropathy E11.42 [facility] [address] [place] [address] 10/23/2024 Sophia Sánchez Diabetes mellitus ty pe II with polyneuropathy E11.42 [facility] [address] [place] [address] 10/24/2024 Sophia Sánchez Tachycardia R00.0 an d Diabetes mellitus type II with polyneuropathy E11.42 [facility] [address] [place] [id number] 10/24/2024 Sophia Sánchez [facility] [address] [place] [address] 10/26/2024 Sophia Sánchez [facility] [address] [place] [phone] 11/01/2024 Sophia Sánchez [facility] [address] [place] [address] 11/06/2024 Sophia Sánchez [facility] [address] [place] [phone] 11/06/2024 Sophia Sánchez [facility] [address] [place] [phone] 11/06/2024 Sophia Sánchez [facility] [address] [place] [phone] 11/07/2024 Sophia Sánchez [facility] [address] [place] [phone] 11/07/2024 Sophia Sánchez [facility] [address] [place] [phone] 11/08/2024 Sophia Sánchez [facility] [address] [place] [phone] 11/13/2024 Sophia Sánchez [facility] [address] [place] [phone] 11/13/2024 Sophia Carrillosa [facility] [address] [place] [phone] 11/19/2024 Sophia Sánchez Diabetes mellitus ty pe II with polyneuropathy E11.42 [facility] [address] [place] [phone] 11/20/2024 Sophia Sánchez [facility] [address] [place] [phone] 11/23/2024 Sophia Sánchez [facility] [address] [place] [phone] 11/26/2024 Sophia Sánchez Tachycardia R00.[address] [address] 12/04/2024 [facility] [address] [place] [phone] 12/05/2024 Sophia Sánchez [facility] [address] [place] [phone] 01/01/2025 [facility] [address] [place] [phone] 01/08/2025 [facility] [address] [place] [phone] 07/11/2024 Sophia Jerri Screening for cardiovascular condition Z13.[address] [address] 04/09/2024 Sophia Sánchez Diabetes mellitus wi th chronic kidney disease E11.22 ; Diabetes mellitus II with other specified complication E11.69 ; Diabetes mellitus type II with polyneuropathy E11.42 ; Chronic kidney disease (CKD), stage II (mild) N18.2 ; Male erectile dysfunction, unspecified N52.9 ; Insulin long-term use Z79.4 ; Bladder incontinence R32 ; Aortic atherosclerosis I70.0 ; Unspecified osteoarthritis, unspecified site M19.90 ; Chronic pain syndrome G89.4 ; Cervical spondylosis without cord compression M47.812 ; Bulge of thoracic disc without myelopathy M51.24 ; Sexually transmitted disease exposure Z20.2 ; Testicular hypofunction E29.1 ; Schizophrenia F20.9 ; Tachycardia R00.0 ; Encounter for screening for cardiovascular disorders Z13.6 ; Hyperlipidemia E78.5 ; GERD (gastroesophageal reflux disease) K21.9 ; Essential tremor G25.0 ; Encounter for immunization Z23 ; Major depressive disorder, recurrent, moderate F33.1 ; Anxiety disorder, unspecified F41.9 ; Osteopenia M85.80 ; Rash R21 ; Coccyalgia M53.3 and Encounter for administration of vaccine Z23 [facility] [address] [place] [phone] 06/05/2024 Sophia Sánchez Encounter for immunization Z23 [facility] [address] [place] [phone] 10/23/2024 [facility] [address] [place] [phone] 10/23/2024 Sophia Encounter for medication counseling Z71.89 [facility] [address] [place] [phone] 05/24/2024 Sophia [facility] Encounter for medication counseling Z71.[address] [address] 11/13/2024 Tutu Tyler Acute non-recurrent sinusitis, unspecified location J01.90 ; Post-void dribbling N39.43 and Benign prostatic hyperplasia with lower urinary tract symptoms N40.[address] [address] 06/06/2024 Sophia Sánchez Chronic pain G89.[address] [address] 07/31/2024 Sophia Sánchez Ankle pain M25.579 ; Falls W19.XXXA and Right knee buckling M25.[address] [address] 07/03/2024 Sophia Sánchez Advance directive discussed with patient Z71.89 ; Alcohol screening Z13.39 ; Colon cancer screening Z12.11 ; Depression screening Z13.31 ; Diabetes mellitus screening Z13.1 ; Diabetes mellitus type II with polyneuropathy E11.42 and Penile implant failure, 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 [address] [address] 10/24/2024 Sophia Sánchez Encounter for examination following treatment at hospital Z09 ; Altered mental status R41.82 ; Epilepsy, unspecified, not intractable, without status epilepticus G40.909 ; Chronic diastolic (congestive) heart failure I50.32 and Chronic pain G89.[address] [address] 04/30/2024 Machel Titus Schizophrenia F20.9 ; Suicidal ideation R45.851 ; Major depressive disorder, recurrent, moderate F33.1 and Anxiety disorder, unspecified F41.[address] [address] 04/03/2024 Sophia Sánchez Fibula fracture S82.409A and Osteopenia M85.[address] [address] 05/22/2024 Machkb Qureshi Schizophrenia F20.9 ; Hospital discharge follow-up Z09 ; Major depressive disorder, recurrent, moderate F33.1 ; Anxiety disorder, unspecified F41.9 ; Diabetes mellitus type II with polyneuropathy E11.42 and Cervical pain (neck) M54.2 Assessments Encounter Date Diagnosis (ICD Code) Assessment Notes Treatment Notes Treatment Clinical Notes Section Notes 04/03/2024 Fibula fracture (ICD-10 - S82.409A) right fibular fracture Referral to be seen as an outpatient orthopedic doctor March. 04/03/2024 Osteopenia (ICD-10 - M85.80) bone density test March 27, 2024 lumbar spine T score-0.3 Left hip T score -0.7 Left hip trochanteric T score -1.3 Osteopenia. Recommendation to take Caltrate D1 tablet daily 04/09/2024 Diabetes mellitus with chronic kidney disease (ICD-10 - E11.22) Blood sugar 334Hemoglobin A1c 7.7% in February 2024Medications:increa se Metformin 850 mg twice a day April 09, 2024.Lantus TrulicityEye exam recommendedKidney function Creatinine 1.11 eGFR 76 March 07, 2024 ADA diet education every visitDiabetic shoes recommendedFeet exam April 09, 2024.Quanta elizabeth next visitARB/Stephen restart lisinopril 2.5 mg daily April 09, 2024.LDL 35 March 07, 2024 rosuvastatin PO QHS 04/09/2024 Diabetes mellitus II with other specified complication (ICD-10 - E11.69) ED Blood sugar 334Hemoglobin A1c 7.7% in February 2024Medications:increa se Metformin 850 mg twice a day April 09, 2024.Lantus TrulicityEye exam recommendedKidney function Creatinine 111 eGFR 76 March 07, 2024 ADA diet education every visitJb hobbspaolo recommendedFeet exam April 09, 2024.Quanta elizabeth next visitARB/Stephen restart lisinopril 2.5 mg daily April 09, 2024.LDL 35 March 07, 2024 rosuvastatin PO QHS 04/25/2024 Fibula fracture (ICD-10 - S82.409A) 04/30/2024 Schizophrenia (ICD-10 - F20.9) as under R45.851 05/24/2024 Encounter for medication counseling (ICD-10 - Z71.89) 06/05/2024 Encounter for immunization (ICD-10 - Z23) 06/06/2024 Chronic pain (ICD-10 - G89.29) 07/03/2024 Advance directive discussed with patient (ICD-10 - Z71.89) 07/03/2024 Alcohol screening (ICD-10 - Z13.39) 04/30/2024 Suicidal ideation (ICD-10 - R45.851) Pt is on multiple medications but apparently, his regimen was changed on last visit. Based on what the caregiver is stating from the list he came home with from last visit, there was a drastic change in his regimen and she had wanted to get clarification but was never able to reach his PCP Dr. Sánchez. She went ahead and gave him the medications according to the list. However, on chart review, I do not see where there was a significant change in his regimen. I do see where there was a lot of medications discontinued but it apparently appeared as if they were d/c because of duplicates. His original regimen appeared to remain the same. Now, since the pt has been getting under-dosed from his original regimen, he has succumbed to multiple issues including suicidal ideation, hearing voices, insomnia, increased aggressiveness and likely some withdrawal effects. To caregiver's knowledge, he has not attempted suicide during this episode. He is becoming very aggressive and caregiver is very concerned that he may harm himself. I have advised to bring pt straight to ED and caregiver has agreed. I have also advised that he will need to come after for f/u for ED vs hosp f/u to readress his medications. She reports that she will definitely be there on the next visit. It is likely that he will need to go back on his original regimen. Again, this likely seems to be miscommunication on his medication regimen that has precipitated this psychotic break. Will advise pt's PCP to follow through. 05/22/2024 Schizophrenia (ICD-10 - F20.9) Pt's medication regimen has changed. We did not recieve inpatient psych notes. Sister will call w/ updated medication list. Home health referral for medication management 07/11/2024 Screening for cardiovascular condition (ICD-10 - Z13.6) 07/30/2024 Diabetes mellitus with chronic kidney disease (ICD-10 - E11.22) 07/31/2024 Ankle pain (ICD-10 - M25.579) printed and given referral for stat right ankle xray, given to pt 07/31/24 i will communicate with pt as soon as x ray is done 09/10/2024 Dementia in other diseases classified elsewhere, unspecified severity, without behavioral disturbance, psychotic disturbance, mood disturbance, and anxiety (ICD-10 - F02.80) 10/17/2024 Repeated falls (ICD-10 - R29.6) 10/17/2024 Muscle weakness (ICD-10 - M62.81) 10/17/2024 Diabetes mellitus type II with polyneuropathy (ICD-10 - E11.42) 10/23/2024 Encounter for medication counseling (ICD-10 - Z71.89) 10/23/2024 Diabetes mellitus type II with polyneuropathy (ICD-10 - E11.42) 10/24/2024 Encounter for examination following treatment at hospital (ICD-10 - Z09) altered mental status hypotension. All other diagnosis stable 10/24/2024 Altered mental status (ICD-10 - R41.82) strong recommendation to improve nutrition strong recommendation to avoid opioids All other diagnosis stable 07/31/2024 Falls (ICD-10 - W19.XXXA) caused by buckling of the right knee ref to ortho 07/31/24 strong recommendation to use walker to prevent more falls 08/08/2024 Diabetes mellitus with chronic kidney disease (ICD-10 - E11.22) 09/10/2024 Schizophrenia, unspecified type (ICD-10 - F20.9) 05/22/2024 Hospital discharge follow-up (ICD-10 - Z09) Pt was admitted to inpatient psych and sister reports he was in there for about 2 weeks. We have initial ED notes but we do not have inpatient psych notes. Entire medication regimen was changed, therefore unable to do correct medication reconciliation as med list from ED is no longer up to date. Sister will call w/ updated medication list. 10/24/2024 Tachycardia (ICD-10 - R00.0) 11/13/2024 Acute non-recurrent sinusitis, unspecified location (ICD-10 - J01.90) Patient has a pretty classic acute sinusitis bacterial. He had a cold with fevers and bodyaches he was very congested in his head and then it started to turn into ear pressure face pressure face swelling headache and thick discharge on 1 side. Will prescribe Augmentin 875 twice a day for 10 days All conditions stable 11/13/2024 Post-void dribbling (ICD-10 - N39.43) Try tamsulosin All conditions stable 11/19/2024 Diabetes mellitus type II with polyneuropathy (ICD-10 - E11.42) 11/26/2024 Tachycardia (ICD-10 - R00.0) 11/13/2024 Benign prostatic hyperplasia with lower urinary tract symptoms (ICD-10 - N40.1) Patient has pretty significant BPH symptoms. Will try tamsulosin since he is on nothing but he may need urology at this point based on the degree of his symptoms but will give tamsulosin 0.4 at bedtime to try All conditions stable 10/24/2024 Diabetes mellitus type II with polyneuropathy (ICD-10 - E11.42) 10/24/2024 Epilepsy, unspecified, not intractable, without status epilepticus (ICD-10 - G40.909) neurologist referral October 24, 2024. Refill 1 month of the divalproex 250 mg 2 tablets twice a day as per hospital discharge papersTo many pain medications as started at the same time decrease day threshold for seizures His pain management is Dr. Yvette Peters, patient missed his appointment today, patient made the doctor's appointments on the same day All other diagnosis stable 07/31/2024 Right knee buckling (ICD-10 - M25.361) ortho referral 07/31/24 strong recommendation to use walker to prevent more falls use walker 18/04 pt has a walker at home rec the use of a knee brace to give some support 05/22/2024 Major depressive disorder, recurrent, moderate (ICD-10 - F33.1) Pt's medication regimen has changed. We did not recieve inpatient psych notes. Sister will call w/ updated medication list. Pt currently denies any SI. States his mood is stable at this time. 07/03/2024 Colon cancer screening (ICD-10 - Z12.11) 04/30/2024 Major depressive disorder, recurrent, moderate (ICD-10 - F33.1) as under R45.851 04/09/2024 Diabetes mellitus type II with polyneuropathy (ICD-10 - E11.42) Blood sugar 334Hemoglobin A1c 7.7% in February 2024Medications:increa se Metformin 850 mg twice a day April 09, 2024.Chelsey Swift exam recommendedKidney function Creatinine 1.11 eGFR 76 March 07, 2024 ADA diet education every visitDiabetic shoes recommendedFeet exam April 09, 2024.Quanta elizabeth next visitARB/Stephen restart lisinopril 2.5 mg daily April 09, 2024.LDL 35 March 07, 2024 rosuvastatin PO QHS 04/30/2024 Anxiety disorder, unspecified (ICD-10 - F41.9) as under R45.851 04/09/2024 Chronic kidney disease (CKD), stage II (mild) (ICD-10 - N18.2) Creatinine 1.11 eGFR 76 March 07, 2024 Avoid nephrotoxic agents like alcohol , anti-inflammatories such as ibuprofen , Advil, Aleve, Naproxen, Meloxican, Celebrex . 07/03/2024 Depression screening (ICD-10 - Z13.31) 05/22/2024 Anxiety disorder, unspecified (ICD-10 - F41.9) as under F33.1 10/24/2024 Chronic diastolic (congestive) heart failure (ICD-10 - I50.32) as per echo cont observation All other diagnosis stable 10/24/2024 Chronic pain (ICD-10 - G89.29) continue follow-up Dr. Peters His sister does know what to patient to be on any opioids Sister requesting Celebrex for patient Medication prescribed All other diagnosis stable 05/22/2024 Diabetes mellitus type II with polyneuropathy (ICD-10 - E11.42) [facility] 07/03/2024 Diabetes mellitus screening (ICD-10 - Z13.1) 04/09/2024 Male erectile dysfunction, unspecified (ICD-10 - N52.9) continue observation secondary to diabetes Currently notTaking any medications 04/09/2024 Insulin long-term use (ICD-10 - Z79.4) bring insulin next visit 07/03/2024 Diabetes mellitus type II with polyneuropathy (ICD-10 - E11.42) Requesting refills on trulicity. 05/22/2024 Cervical pain (neck) (ICD-10 - M54.2) This is chronic but pt reports it is not well controlled. He is requesting neck xray as his pain has been worsening. Stats to have had hx of neck injections Xray of cervical spine. Toradol shot. Tylenol as needed; warm compress to neck as needed. 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 Relax and tighten the muscles that controlled the urine flow. Several times a day and also during urination. 04/09/2024 Aortic atherosclerosis (ICD-10 - I70.0) continue rosuvastatin 04/09/2024 Unspecified osteoarthritis, unspecified site (ICD-10 - M19.90) referral pain management Dr. Yvette peters April 09, 2024. refill duloxetine 30 mg He takes duloxetine 60 as well 04/09/2024 Chronic pain syndrome (ICD-10 - G89.4) referral to pain management Dr. Yvette Nguyen 04/09/2024 Cervical spondylosis without cord compression (ICD-10 - M47.812) Referral to pain management April 09, 2024. Duloxetine 90 mg daily gabapentin 04/09/2024 Bulge of thoracic disc without myelopathy (ICD-10 - M51.24) referral to pain management April 09, 2024. Duloxetine 90 mg daily Gabapentin 04/09/2024 Sexually transmitted disease exposure (ICD-10 - Z20.2) blood work today April 09, 2024. Fluconazole 100 mg daily for 3 days 04/09/2024 Testicular hypofunction (ICD-10 - E29.1) order testosterone level April 09, 2024. 04/09/2024 Schizophrenia (ICD-10 - F20.9) printed psych referral from March 02, 2024 04/09/2024 Tachycardia (ICD-10 - R00.0) restart metoprolol ER 25 mg daily April 09, 2024. EKG is sinus tachycardia 112 April 09, 2024. 04/09/2024 Encounter for screening for cardiovascular disorders (ICD-10 - Z13.6) order for echocardiogram April 09, 2024. 04/09/2024 Hyperlipidemia (ICD-10 - E78.5) LDL 43 March 07, 2024 rosuvastatin 40 mg daily Encouraged patient to consume a healthy diet consisting of lean protein, low in fat, low in simple carbohydrates. Encouraged patient to increase fruit and vegetable consumption. Discussed importance of complying with medication regimen as indicated. Patient to excercise as tolerated with stretching and weight bearing, low impact excercise. 04/09/2024 GERD (gastroesophagea l reflux disease) (ICD-10 - K21.9) Omeprazole 40 mg by mouth daily as needed, aware of the association with prolonged use of PPI with memory loss , and kidney failure, Patient decided to keep taking it diet recommendations Diet recommendations for reflux , Avoiding acid food, fatty food and over eating, avoid eating 3 hours before bed time void triggers such as caffeine, chocolate, spicy foods, high fat foods, carbonated beverage. Avoid tight fitting garments. Avoid tobacco and alcohol, elevation of head of bed. 04/09/2024 Essential tremor (ICD-10 - G25.0) discontinue caffeine Restart metoprolol April 09, 2024. 04/09/2024 Encounter for immunization (ICD-10 - Z23) Prevnar 20 04/09/24 04/09/2024 Major depressive disorder, recurrent, moderate (ICD-10 - F33.1) Depression test done 0 April 09, 2024.Patient denies suicidal or homicidal ideationPsychotherapy offered in cases needed.printed referral to psychiatry is done March 02, 2024 04/09/2024 Anxiety disorder, unspecified (ICD-10 - F41.9) printed referral to psychiatry is done March 02, 2024 04/09/2024 Osteopenia (ICD-10 - M85.80) bone density test March 27, 2024 Recommendation to take Caltrate D1 tablet daily 04/09/2024 Rash (ICD-10 - R21) fluconazole 100 mg daily for 3 days Continue topical powder with miconazole 04/09/2024 Coccyalgia (ICD-10 - M53.3) referral to pain management April 09, 2024. 04/09/2024 Encounter for administration of vaccine (ICD-10 - Z23) 04/09/2024 Other prevnar April 09, 2024. 40 minutes were spent with the patient reviewing his history, performingthe exam, and establishing a treatment plan. 04/03/2024 Other 22 minutes were spent with the patient reviewing his history by audio telemedicine, and establishing a treatment plan. 05/04/2024 Other I have reviewed and updated the HPI, Current Medications, PFSH, ROS, and Preventive Medicine Screening done by ancillary staff. Patient was given a personalized prevention plan. 04/30/2024 Other I spent 30 minutes on this patient encounter 05/22/2024 Other Patient's hospital records have been reviewed. Only the one from ED recieved. Records for inpatient psych has not been reviewed. Unable to reconcile medications due to medications have been changed w/ psych and no records received. Patient has been instructed to call if symptoms progress/worse n or develops any acute concerning changes. 07/03/2024 Other I have reviewed and updated the HPI, Current Medications, PFSH, ROS, and Preventive Medicine Screening done by ancillary staff. Patient was given a personalized prevention plan. 05/24/2024 Other Medication Action Plan The patient's hospital discharge medications were reconciled with the current list in [facility], the patient's sister, and external fill history, Medications were reviewed post hospital discharge: ASV OBS summary available. Ovid summary was not available New medications per discharge: 1) Lisinopril (per ASV OBS) 2) Lamotrigine (per claims - same date as Ovid discharge) 3) Trazodone (per claims - same date as Ovid discharge) 4) Aripiprazole (per claims - same date as Ovid discharge) Medications discontinued per discharge: 1) Trazodone (ASV OBS) Dose changes per discharge: 1) Divalproex (dose decreased, formulation changed - new claim seen same date as Ovid discharge) 2) Duloxetine (dose decreased - new claim seen same date as Ovid discharge) Discrepancies noted as follows: 1) Trazodone was d/c by psych inpatient. Outpatient psych initiated. Agree with inpatient d/c if patient taking Mirtazapine (No mentions of medication by sister and no claims seen despite medication being listed in ASV discharge summary). Adherence to prescribed regimen: Yes Additional Notes/ Recommendation s: 1) Encouraged sister administer medications based off most recent discharge. (IE continue with new dosing for Duloxetine and Divalproex.) 2) Refill requested for Omeprazole. Will send TE request for further evaluation. 07/31/2024 Other 20 minutes were spent with the patient reviewing his history, performingthe exam, and establishing a treatment plan. 10/24/2024 Other 40 minutes were spent with the patient reviewing his history by video and audio telemedicine, and establishing a treatment plan. Patient at home, at office . All other diagnosis stable 10/23/2024 Other Medication Action Plan The patient's hospital discharge medications were reconciled with the current list in ecw,and external fill history. Medications were reviewed post hospital discharge: Yes, summary available New medications per discharge: (7 Day supplies, additional refills may be needed). 1) Buprenorphine Film 2) Divalproex 250 3) Gabapentin 300 4) Morphine Medications discontinued per discharge: None specified Dose changes per discharge: None specified Discrepancies noted as follows: 1) Duplicate therapy - Omeprazole and Pantoprazole (both recently filled. Clarity on which to continue warranted. - Metoprolol XL. Appear dose changed once discharged. Recent fill for both. Clarity warranted on how to continue. Adherence to prescribed regimen: No. Please see notes in medication list Additional notes/ Recommendation s 1) CARDIOPULMONARY PHYSICAL THERAPIST Depressants/ Fall Risk - Morphine - Seroquel - Trazodone - Gabapentin - Buprenorphine 2) DM. Happy to collaborate with MD upon referral and patient agreement. Pt BG has been increasing. No recent claims seen for insulins. Only Metformin and Trulicity. Insulin would be warranted based of FBG and inpatient A1C. 11/13/2024 Other I spent time wi th the patient reviewing history, performing the exam, reviewing the record and establishing a treatment plan for . 30 minutes All conditions stable Plan Of Treatment Pending Test Test Name Order Date IH Electrocardiogram (ECG) 01/29/2021 DPN Exam 01/29/2021 Future Test Test Name Order Date Echocardiogram 04/09/2024 XRAY, spine, cervical, 2 or 3 views 04/27 Insurance Providers Payer Name Payer Address Payer Phone Subscriber Number Group Number Insured Name Patient Relationship to Insured Coverage Start Date Coverage End Date [employer] AD[employer] HMO [address] [address] [place] [phone] [id number] [id number] Self - patient is the insured Medications Administered Medication Instructions Date of Administration Dosage Notes Ketorolac Tromethamine 05/22/2024 2 mL methylPREDNISolone Sodium Succ 06/06/2024 125 mg Patient Tolerate d Well Testosterone (Patient Supplied) 05/28/2020 100 mg lot # [id number] [facility] [place] 2[place] [id number] Testosterone (Patient Supplied) 07/31/2020 1 mg Testosterone (Patient Supplied) 04/23/2021 1 mg Testosterone Cypionate 200mg 06/24/2020 0.5 mL Testosterone Cypionate 200mg 07/10/2020 100 mg Testosterone Cypionate 200mg 09/02/2020 1 mL Testosterone Cypionate 200mg 10/17/2020 1 mL Testosterone Cypionate 200mg 11/07/2020 1 mL Testosterone Cypionate 200mg 11/28/2020 2 mL Testosterone Cypionate 200mg 12/30/2020 2 mL Testosterone Cypionate 200mg 01/29/2021 200 mg lot -[id number] t brought injection Testosterone Cypionate 200mg 04/02/2021 1 mL Medical (General) History Medical History History ICD Code R leg fracture late January 2024 Encounter for general adult medical examination with abnormal findings (resolved 01/26/2021) undefined Body mass index (BMI) 24.0-24.9, adult ( resolved 01/26/2021) Other specified counseling (resolved 11/2020) Frequent falls (resolved 01/28/2021) Encounter for screening for other viral diseases (resolved 03/25/2021) Benign prostatic hyperplasia with lower urinary tract symptoms N40.1 Surgical History Surgery Date(Month/Year) Right Hand Surgery 2001 C3 and C7 surgery 2006 Hospitalization History Reason Date(Month/Year) Right leg pain-[facility] 02/25/2024
--- OUTSIDE RECORDS SUMMARY | 2025-03-26 07:13 | XMS_ITS | Patient Health Record ---
Author Organization [facility] Address [address] [facility] [address] [place] [address] Care Team Providers Care Awning Maker And Installer Name Role Phone YVETTE LUONG Unavailable [phone] Allergies No Known Allergies Results Component Value Reference Range Notes EMG/NCV Upper Extremities Reviewed date:07/30/2024 11:03:44 AM Interpretation: Performing Lab: Notes/Report: EMG/NCV Lower Extremities Reviewed date:08/20/2024 12:55:32 PM Interpretation: Performing Lab: Notes/Report: MRI : Lumbar without contras t Reviewed date:07/30/2024 08:43:35 AM Interpretation: Performing Lab: Notes/Report: MRI : Cervical without Contr ast Reviewed date:07/30/2024 08:51:09 AM Interpretation: Performing Lab: Notes/Report: X ray : Pelvis Reviewed date:07/30/2024 08:42:43 AM Interpretation: Performing Lab: Notes/Report: Reason For Referral Reason [id number] DIETARY COOK OV Diagnosis 1 Chronic pain disorde r (G89.4) Referred Organization [facility] Referred Provider YVETTE LUONG Referred Address [address] [facility] [address], [place],[address], Referred Provider Specialty [facility] Medic[facility] e Referral Priority Routine Reason 12431 EST OV Diagnosis 1 Chronic pain disorde r (G89.4) Referred Organization [facility] Referred Provider YVETTE LUONG Referred Address [address] [facility] [address], [place],[address], Referred Provider Specialty Pain Medic[facility] e Referral Priority Routine Reason EMG/NCS: BLE Send to PCP to refer Diagnosis 1 Lumbar disc disease with radiculopathy (M51.16) Ref[facility] Referred Provider YVETTE LUONG Referred Address [address] [place] [address],[address],[place], [place],[address], Referred Provider Specialty Pain Medicin e Referral Priority Routine Reason NVT Diagnosis 1 Type 2 diabetes mono itus with peripheral neuropathy (E11.42) Ref[facility] Referred Provider YVETTE LUNOG Referred Address [address] [place] [address],[address],[place], [place],[address], Referred Provider Specialty Pain Medicin e Referral Priority Routine Reason BL Coccygeal NB unde r fluoro Diagnosis 1 Coccydynia (M53.3) Referred Organization [facility] Referred Provider YVETTE LUONG Referred Address [address] [place] [address],[address],[place], [place],[address] [place] [address], Referred Provider Specialty Pain Medicin e Referral Priority Routine Reason EST OV x3 Diagnosis 1 Chronic pain syndrom e (G89.4) Referred Organization [facility] Referred Provider YVETTE LUONG Referred Address [address] [place] [address],[address],[place], [place],[address] [place] [address], Referred Provider Special[facility] Pain Medic[facility] Referral Priority Routine Reason EST OV x3 Diagnosis 1 Chronic pain syndrom e (G89.4) Referred Organization [facility] Referred Provider YVETTE LUONG Referred Address [address] [place] [address],[address],[place], [place],[address], Referred Provider Special[facility] Referral Priority Routine Medications Medication SIG (Take, Route, Frequency, Duration) Notes Start Date End Date Status Divalproex Sodium ER 500 MG TAKE 1 TABLE T BY MOUTH TWICE DAILY FOR 15 DAYS FOR SEIZURES Oral; Duration: 15 Days Active FreeStyle Bebe 2 Sensor - USE TO CHECK BLOOD SUGAR CHANGE EVERY 14 DAYS; Duration: 28 Days Active lamoTRIgine 25 MG Oral; Duration: 15 Days Active Gabapentin 300 MG Oral; Duration: 28 Days Active Lidocaine 5 % APPLY 1 PATCH TOPICA LLY TO THE SKIN DAILY. MAY WEAR UP TO 12 HOURS External; Duration: 30 Days Active QUEtiapine Fumarate 100 MG Oral; Duration: 28 Days Active Primidone 50 MG Oral; Duration: 28 Days Active Rosuvastatin Calcium 40 MG TAKE 1 TABLET BY MOUTH DAILY Oral; Duration: 90 Days Active Lantus 100 UNIT/ML Subcutaneous; Durati on: 30 Days Active ARIPiprazole 5 MG TAKE 1 TABLET BY BIPIN TH TWICE DAILY FOR 15 DAYS FOR PSYCHOSIS Oral; Duration: 15 Days Active True Comfort Pen [place] 32G X 4 MM ; Duration: 30 Days Active Omeprazole 40 MG TAKE 1 CAPSULE BY MO UTH DAILY 30 MINUTES BEFORE BREAKFAST Oral; Duration: 90 Days Active Senna 8.6 MG Oral; Duration: 28 Days Active metFORMIN HCl 850 MG TAKE 1 TABLET BY MO UTH TWICE DAILY WITH A MEAL Oral; Duration: 30 Days Active buPROPion HCl 75 MG TAKE 1/2 TABLET BY M OUTH EVERY MORNING FOR 7 DAYS. THEN INCREASE TO 1 TABLET BY MOUTH EVERY MORNING Oral; Duration: 33 Days Active Lisinopril 2.5 MG TAKE 1 TABLET BY BIPIN TH DAILY Oral; Duration: 90 Days Active Diclofenac Potassium 25 MG TAKE 1 CAPSUL E BY MOUTH FOUR TIMES DAILY Oral; Duration: 30 Days Active Metoprolol Succinate ER 25 MG TAKE 1 TABLET BY MOUTH DAILY Oral; Duration: 30 Days Active Trulicity 1.5 MG/0.5ML ADMINISTER 1.5 MG UNDER THE SKIN 1 TIME A WEEK Subcutaneous; Duration: 84 Days Active Aspirin Low Dose 81 MG Oral; Duration: 28 Days Active DULoxetine HCl 60 MG TAKE 1 CAPSULE BY M OUTH DAILY Oral; Duration: 90 Days Active traZODone HCl 100 MG Oral; Duration: 15 Days Active Gabapentin 600 MG 1 TAB BY MOUTH THREE TIMES PER DAY; Duration: 30 days 07/24/2024 Active QUEtiapine Fumarate 100 MG TAKE 1 TABLET BY MOUTH AT BEDTIME Oral; Duration: 90 Days Active Social History Tobacco Use: Social History Observation Description Date Details (start date - stop date) Former Smoker NA - NA Sex Assigned At : Social History Observation Description Sex Assigned At Male Tobacco Control (Standard) Question Answer Notes Tobacco use: Former smoker How long has it been since you last smoked? 5-10 years Additional Findings: Tobacco user Cigar smoker Additional Findings: Tobacco non-user Current no nsmoker,Ex-cigar smoker Section Notes: SOAPP- 21 ORT- 29 SOAPP- ORT- 29 SOAPP- ORT- 29 SOAPP- 21 ORT- 29 SOAPP- 21 ORT- 29 SOAPP- 21 ORT- 29 SOAPP- ORT- 29 Problems Problem Type SNOMED Code ICD Code Onset Dates Problem Status W/U Status Risk Notes Problem Chronic pain syndrome (723758120) Chronic pain syndrome (G89.4) Active confirmed Problem Osteoarthritis of knee (331075764) Bilateral primary osteoarthritis of knee (M17.0) Active confirmed Problem Localized, primary osteoarthritis of the shoulder region (731295226) Primary osteoarthritis, right shoulder (M19.011) Active confirmed Problem Localized, primary osteoarthritis of the shoulder region (601538734) Primary osteoarthritis, left shoulder (M19.012) Active confirmed Problem Localized, primary osteoarthritis of the hand (527010359) Primary osteoarthritis, right hand (M19.041) Active confirmed Problem Localized, primary osteoarthritis of the hand (648128662) Primary osteoarthritis, left hand (M19.042) Active confirmed Problem Therapeutic drug monitoring, quantitative (regime/therapy) (20790063) Encounter for therapeutic drug level monitoring (Z51.81) Active confirmed Problem Lumbar spondylosis (902219018) Lumbar spondylosis (M47.816) Active confirmed Problem Localized, primary osteoarthritis of the pelvic region and thigh (158082166) Primary osteoarthritis of both hips (M16.0) Active confirmed Problem Sacroiliitis (05455405) Sacroiliitis (M46.1) Active confirmed Problem Coccydynia (60857405) Coccydynia (M53.3) Active confirmed Problem Cervical disc disorder with radiculopathy (904000143) Cervical disc disorder with radiculopathy (M50.10) Active confirmed Problem Radiculopathy due to lumbar intervertebral disc disorder (915807484161101) Lumbar disc disease with radiculopathy (M51.16) Active confirmed Problem Polyneuropathy due to type 2 diabetes mellitus (397495029) Type 2 diabetes mellitus with peripheral neuropathy (E11.42) Active confirmed Problem 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) Active confirmed Vital Signs Heart Rate 84 /min 11/23/2024 Respiratory Rate 16 /min 11/23/2024 Height-cm 175.26 cm 11/23/2024 Blood pressure diastolic 76 mm Hg 11/23/2024 Weight-kg 72.12 kg 11/23/2024 Height 69 in 11/23/2024 Blood pressure systolic 114 mm Hg 11/23/2024 Weight 159 lbs 11/23/2024 BMI 23.48 kg/m2 11/23/2024 Procedures Procedure Date Ordered Date Performed Result Body Sit e ANNUAL DEPRESSION SCREENING 15 MIN 07/24/2024 07/27/2024 N /A Psychological Testing 07/24/2024 07/27/2024 N/A NRPSYC TST EVAL PHYS/QHP 07/24/2024 07/27/2024 N/A Alcohol and/or abuse 07/24/2024 07/27/2024 N/A PSYCL/NRPSYC TECH 1ST 07/24/2024 07/27/2024 N/A AUTONOMIC NERV FUNCTION TEST 07/24/2024 08/20/2024 N/A AUTONOMIC NERV FUNCTION TEST 07/24/2024 08/20/2024 N/A EXTREMITY STUDY 07/24/2024 08/20/2024 N/A Coccygeal Nerve Block 07/24/2024 08/27/2024 N/A Shoulder Joint Injection 11/23/2024 11/30/2024 N/A Coccygeal Nerve Block 11/23/2024 11/30/2024 N/A Encounters Encounter Location Date Provider Diagnosis [facility] [address] [facility] [address] [place] [address] 07/24/2024 YVETTE AG Coccydynia M53.3 ; Lumbar disc disease with radiculopathy M51.16 ; Lumbar spondylosis M47.816 ; Cervical disc disorder with radiculopathy M50.10 ; Disorder of sacrococcygeal spine M53.3 ; Sacroiliitis M46.1 ; Primary osteoarthritis of both hips M16.0 ; Bilateral primary osteoarthritis of knee M17.0 ; Primary osteoarthritis, right hand M19.041 ; Primary osteoarthritis, left hand M19.042 ; Chronic pain syndrome G89.4 ; Encounter for therapeutic drug level monitoring Z51.81 and Type 2 diabetes mellitus with peripheral neuropathy E11.42 [facility] [address] [facility] [address] [place] [address] 08/17/2024 [facility] Lumbar disc disease with radiculopathy M51.16 ; Lumbar spondylosis M47.816 ; Cervical disc disorder with radiculopathy M50.10 ; Disorder of sacrococcygeal spine M53.3 ; Sacroiliitis M46.1 ; Primary osteoarthritis of both hips M16.0 ; Bilateral primary osteoarthritis of knee M17.0 ; Primary osteoarthritis, right hand M19.041 ; Primary osteoarthritis, left hand M19.042 ; Chronic pain syndrome G89.4 ; Encounter for therapeutic drug level monitoring Z51.81 and Type 2 diabetes mellitus with peripheral neuropathy E11.42 [facility] [address] [place] [address] 09/03/2024 [facility] [address] [place] [address] 10/05/2024 [facility] Lumbar spondylosis M47.816 ; Lumbar disc disease with radiculopathy M51.16 ; Cervical disc disorder with radiculopathy M50.10 ; Disorder of sacrococcygeal spine M53.3 ; Sacroiliitis M46.1 ; Primary osteoarthritis of both hips M16.0 ; Bilateral primary osteoarthritis of knee M17.0 ; Primary osteoarthritis, right hand M19.041 ; Primary osteoarthritis, left hand M19.042 ; Chronic pain syndrome G89.4 ; Encounter for therapeutic drug level monitoring Z51.81 and Type 2 diabetes mellitus with peripheral neuropathy E11.42 [facility] [address] [place] [address] 11/23/2024 [facility] Disorder of sacrococcygeal spine M53.3 ; Lumbar disc disease with radiculopathy M51.16 ; Primary osteoarthritis, right shoulder M19.011 ; Primary osteoarthritis, left shoulder M19.012 ; Lumbar spondylosis M47.816 ; Cervical disc disorder with radiculopathy M50.10 ; Primary osteoarthritis of both hips M16.0 ; Bilateral primary osteoarthritis of knee M17.0 ; Chronic pain syndrome G89.4 ; Encounter for therapeutic drug level monitoring Z51.81 and Type 2 diabetes mellitus with peripheral neuropathy E11.42 [facility] [address] [place] [address] [facility] Disorder of sacrococcygeal spine M53.3 ; Lumbar disc disease with radiculopathy M51.16 ; Primary osteoarthritis, right shoulder M19.011 ; Primary osteoarthritis, left shoulder M19.012 ; Lumbar spondylosis M47.816 ; Cervical disc disorder with radiculopathy M50.10 ; Primary osteoarthritis of both hips M16.0 ; Bilateral primary osteoarthritis of knee M17.0 ; Chronic pain syndrome G89.4 ; Encounter for therapeutic drug level monitoring Z51.81 and Type 2 diabetes mellitus with peripheral neuropathy E11.42 [facility] [address] [facility] [address] [place] [address] 04/10/2024 YVETTE FLORETE [facility] [address] [facility] [address] [place] [address] 04/12/2024 YVETTE FLORETE [facility] [address] [facility] [address] [place] [address] 04/16/2024 YVETTE FLORETE [facility] [address] [facility] [address] [place] [address] 06/27/2024 YVETTE FLORETE [facility] [address] [facility] [address] [place] [address] 06/27/2024 YVETTE FLORETE [facility] [address] [facility] [address] [place] [address] 07/26/2024 YVETTE FLORETE [facility] [address] [facility] [address] [place] [address] 07/26/2024 YVETTE FLORETE [facility] [address] [facility] [address] [place] [address] 08/27/2024 YVETTE FLORETE [facility] [address] [facility] [address] [place] [address] 08/30/2024 YVETTE FLORETE [facility] [address] [facility] [address] [place] [address] 09/03/2024 YVETTE FLORETE Lumbar disc disease with radiculopathy M51.16 [facility] [address] [facility] [address] [place] [address] 09/03/2024 YVETTE FLORETE [facility] [address] [facility] [address] [place] [address] 09/06/2024 YVETTE FLORETE [facility] [address] [facility] [address] [place] [address] 09/06/2024 YVETTE FLORETE [facility] [address] [facility] [address] [place] [address] 09/14/2024 YVETTE FLORETE [facility] [address] [facility] [address] [place] [address] 10/19/2024 [facility] [address] [place] [address] [address] [place] [address] 11/23/2024 [facility] [address] [place] [address] [address] [place] [address] 11/30/2024 [facility] Assessments Encounter Date Diagnosis (ICD Code) Assessment Notes Treatment Notes Treatment Clinical Notes Section Notes 07/24/2024 Coccydynia (ICD-10 - M53.3) Injective therapy: I will schedule this patient to undergo bilateral coccygeal nerve block x 2, 2 weeks apart 08/17/2024 Lumbar spondylosis (ICD-10 - M47.816) 08/17/2024 Lumbar disc disease with radiculopathy (ICD-10 - M51.16) The appropriate use of opioids or any controlled medications was explained to the patient. Relevant questioning of the patient revealed nothing to suggest past or potential aberrant behavior or medication abuse or diversion. Emphasis was placed on tolerance abuse and dependence. The patient was educated on proper storage and safe keeping of controlled medications. The opioid medication use contract was reviewed and signed by the patient. The patient agrees to comply in full. The patient is aware that if there is any evidence of illicit substance abuse or diversion, the opiate prescriptions will immediately be canceled. The patient was also advised that random urine analysis or blood testing can be done at any time for screening and monitoring purposes. Reports improved quality of life; no adverse effects of opioid analgesics. Review of PDMP shows acceptable prescription patterns, no evidence of addiction, urine drug screen consistent with prescribed products, increased functionality and equivalent dose medically necessary due to none efficiency of the lower dose opiates was determined. Discussed multimodal pain management approach including medications, procedures, therapies and consultations as needed. Discussed role of non-opiate pain medication and role of extended release appeared medication. If appropriate may utilize opiates and non-opiate pain medications every 30 days and reassess benefits thereafter the expected duration of intervention is 99 months. As per [place] Bill 21, the prescription drug monitoring program (PDMP) was accessed and reviewed at today's visit prior to prescriptions being given. 09/03/2024 Lumbar disc disease with radiculopathy (ICD-10 - M51.16) 10/05/2024 Lumbar spondylosis (ICD-10 - M47.816) 11/23/2024 Disorder of sacrococcygeal spine (ICD-10 - M53.3) 12/21/2024 Disorder of sacrococcygeal spine (ICD-10 - M53.3) 12/21/2024 Lumbar disc disease with radiculopathy (ICD-10 - M51.16) 11/23/2024 Lumbar disc disease with radiculopathy (ICD-10 - M51.16) The appropriate use of opioids or any controlled medications was explained to the patient. Relevant questioning of the patient revealed nothing to suggest past or potential aberrant behavior or medication abuse or diversion. Emphasis was placed on tolerance abuse and dependence. The patient was educated on proper storage and safe keeping of controlled medications. The opioid medication use contract was reviewed and signed by the patient. The patient agrees to comply in full. The patient is aware that if there is any evidence of illicit substance abuse or diversion, the opiate prescriptions will immediately be canceled. The patient was also advised that random urine analysis or blood testing can be done at any time for screening and monitoring purposes. Reports improved quality of life; no adverse effects of opioid analgesics. Review of PDMP shows acceptable prescription patterns, no evidence of addiction, urine drug screen consistent with prescribed products, increased functionality and equivalent dose medically necessary due to none efficiency of the lower dose opiates was determined. Discussed multimodal pain management approach including medications, procedures, therapies and consultations as needed. Discussed role of non-opiate pain medication and role of extended release appeared medication. If appropriate may utilize opiates and non-opiate pain medications every 30 days and reassess benefits thereafter the expected duration of intervention is 99 months. As per [place] Bill 21, the prescription drug monitoring program (PDMP) was accessed and reviewed at today's visit prior to prescriptions being given. 11/23/2024 Primary osteoarthritis, right shoulder (ICD-10 - M19.011) 10/05/2024 Lumbar disc disease with radiculopathy (ICD-10 - M51.16) 08/17/2024 Cervical disc disorder with radiculopathy (ICD-10 - M50.10) 07/24/2024 Lumbar disc disease with radiculopathy (ICD-10 - M51.16) Diagnostic: MRI of the lumbar spineEMG/NCV of the bilateral lower extremitiesFor neurovascular testing 07/24/2024 Lumbar spondylosis (ICD-10 - M47.816) Patient has completed >6 weeks of formal physical therapy in the past as well as physician directed home exercise program (HEP) consisting of lower trunk rotation stretch, lumbar extensions, cat camel, bridging, single knee to chest, piriformis stretch, pelvic tilt within the prior 6 months without substantial relief. Patient have been doing the HEP 30 mins/day, 4-5 days/week. Has had xray of affected area which have been reviewed. Reports constant disabling pain unreasponsive to NSAIDs, heat, ice, immobilization and alternative conservative therapies. Patient have symptoms that are not getting better with therapy. MRI and Xray bending views requested. I will plan procedures based on results. TED/Facet Joint Injection/MBB/RFA if needed. Please include in the MRI report if there are Modic Changes. These are recognized on magnetic resonance imaging (MRI) scans as alterations in signal intensity of the bone marrow adjacent to a degenerated disc. There are three types of Modic changes namely signs of bone marrow edema (Modic Type I), fat (Modic Type II) and osseous sclerosis (Modic Type III). Please document at least one of the following if present. Modic Type I and/or Modic Type II. Endplate changes, inflammation, edema, disruption, and/or fissuring; Fibrovascular bone marrow changes (hypointensive signal for Modic Type I); Fatty bone marrow replacement (hyperintensive signal for Modic Type II). 08/17/2024 Disorder of sacrococcygeal spine (ICD-10 - M53.3) 10/05/2024 Cervical disc disorder with radiculopathy (ICD-10 - M50.10) 11/23/2024 Primary osteoarthritis, left shoulder (ICD-10 - M19.012) 12/21/2024 Primary osteoarthritis, right shoulder (ICD-10 - M19.011) 12/21/2024 Primary osteoarthritis, left shoulder (ICD-10 - M19.012) 11/23/2024 Lumbar spondylosis (ICD-10 - M47.816) 10/05/2024 Disorder of sacrococcygeal spine (ICD-10 - M53.3) 07/24/2024 Cervical disc disorder with radiculopathy (ICD-10 - M50.10) MRI of the cervical spineEMG/NCV of the bilateral upper extremitiesPatient has completed >6 weeks of formal physical therapy in the past as well as physician directed home exercise program (HEP) consisting of cervical chin tuck, cervical rotations, cervical nods, upper trap stretch, levator scapulae stretch for 4-5 days a week and for 30 mins/day within the prior 6 months without substantial relief. Has had xray of affected area which have been reviewed. Reports constant disabling pain unresponsive to NSAIDs, heat, ice, immobilization, HEP and alternative conservative therapies. Patient has pain (with reported nerve problems) that does not improve depsite aiming to avoid surgery. Patient also has worsening of nerve problems despite treatment. MRI and Xray Bending Views requested. I will plan procedures based on results. TED/Facet MBB/FJI/RFA if needed. 08/17/2024 Sacroiliitis (ICD-10 - M46.1) 08/17/2024 Primary osteoarthritis of both hips (ICD-10 - M16.0) 07/24/2024 Disorder of sacrococcygeal spine (ICD-10 - M53.3) 10/05/2024 Sacroiliitis (ICD-10 - M46.1) 11/23/2024 Cervical disc disorder with radiculopathy (ICD-10 - M50.10) 12/21/2024 Lumbar spondylosis (ICD-10 - M47.816) 12/21/2024 Cervical disc disorder with radiculopathy (ICD-10 - M50.10) 11/23/2024 Primary osteoarthritis of both hips (ICD-10 - M16.0) 10/05/2024 Primary osteoarthritis of both hips (ICD-10 - M16.0) 08/17/2024 Bilateral primary osteoarthritis of knee (ICD-10 - M17.0) 07/24/2024 Sacroiliitis (ICD-10 - M46.1) 07/24/2024 Primary osteoarthritis of both hips (ICD-10 - M16.0) X-ray of the bilateral hip and pelvis AP and lateral views 08/17/2024 Primary osteoarthritis, right hand (ICD-10 - M19.041) 10/05/2024 Bilateral primary osteoarthritis of knee (ICD-10 - M17.0) 11/23/2024 Bilateral primary osteoarthritis of knee (ICD-10 - M17.0) 12/21/2024 Primary osteoarthritis of both hips (ICD-10 - M16.0) 12/21/2024 Bilateral primary osteoarthritis of knee (ICD-10 - M17.0) 11/23/2024 Chronic pain syndrome (ICD-10 - G89.4) 10/05/2024 Primary osteoarthritis, right hand (ICD-10 - M19.041) 08/17/2024 Primary osteoarthritis, left hand (ICD-10 - M19.042) 07/24/2024 Bilateral primary osteoarthritis of knee (ICD-10 - M17.0) X-rays of the bilateral knees AP and lateral views 07/24/2024 Primary osteoarthritis, right hand (ICD-10 - M19.041) 08/17/2024 Chronic pain syndrome (ICD-10 - G89.4) 10/05/2024 Primary osteoarthritis, left hand (ICD-10 - M19.042) 11/23/2024 Encounter for therapeutic drug level monitoring (ICD-10 - Z51.81) 12/21/2024 Chronic pain syndrome (ICD-10 - G89.4) 11/23/2024 Type 2 diabetes mellitus with peripheral neuropathy (ICD-10 - E11.42) 12/21/2024 Encounter for therapeutic drug level monitoring (ICD-10 - Z51.81) 10/05/2024 Chronic pain syndrome (ICD-10 - G89.4) 07/24/2024 Primary osteoarthritis, left hand (ICD-10 - M19.042) 08/17/2024 Encounter for therapeutic drug level monitoring (ICD-10 - Z51.81) 07/24/2024 Chronic pain syndrome (ICD-10 - G89.4) Discussed initial diagnosis and treatment recommendations with the patient. Explained the risks and benefits of behavioral health assessments. Discussed program related to current medication management protocols. Developed treatment plan above with the patient. Patient verbalized understanding and agreement with treatment plan. Discussed confidentiallity and limits of confidentiality as it applies to behavioral health assessments. Reviewed the behavioral health informed consent form with the patient and provided an opportunity for him/her to ask questions. The patient verbalized understanding of informed consent form and agreed to enter treatment. Provided the patient with Behavioral Response Evaluation Program brochure that outlines the program objectives and how he/she can reach me and the office and provided him/her with instructions on how to contact [facility] in the event that he/she has an emergency/crisis. Individual behavioral health therapy is recommended for the patient. Treatment will be coordinated with [facility] Behavioral Response Evaluation Program. Frequency of service: Patient to participate in monthly [facility] assessment via Telehealth with assigned [facility] Clinical Cage Tender on my behalf every 1 month. Frequency of sessions will be monthly and reevaluated annually to address treatment goals. Projected Discharge Date: [1 year: 07/23/2025] Treatment Plan: see HPI above. Behavioral Health Treatment Plan: Start Date of Plan: 07/24/2024 Services: Referred to [facility] Program Services Strengths: Patient is highly motivated. Patient also have good family support. Limitations: Patient needs reinforcement. Frequency of Service: We will meet every 1 month. Frequency of sessions will decrease as the patient reaches his/her treatment goals/medication management protocols. Projected Discharge Date: [1 year: 07/23/2025] Date of Next Review: 1 month This plan was developed collaboratively with the patient. Discussed therapeutic interventions designed to assist him/her in reaching his/her goals and objectives. The patient verbalized understanding and agreement with the goals, objectives, and interventions. Goals/Objectives: Reduce hospitalizations and emergency services. Identify even slight changes in mental health. Reduce common medication side-effects and interactions. Reduce other mental health incidences having to do with depression, addiction and cognitive decline. 08/17/2024 Type 2 diabetes mellitus with peripheral neuropathy (ICD-10 - E11.42) 10/05/2024 Encounter for therapeutic drug level monitoring (ICD-10 - Z51.81) 12/21/2024 Type 2 diabetes mellitus with peripheral neuropathy (ICD-10 - E11.42) 10/05/2024 Type 2 diabetes mellitus with peripheral neuropathy (ICD-10 - E11.42) 07/24/2024 Encounter for therapeutic drug level monitoring (ICD-10 - Z51.81) 07/24/2024 Type 2 diabetes mellitus with peripheral neuropathy (ICD-10 - E11.42) Patient have a medical history of peripheral autonomic neuropathy and peripheral vascular disease. We will proceed with Neurovascular Testing (NVT) to evaluate sensory and motor function ( neuro ) and peripheral circulation. 07/24/2024 Other The appropriate use of opioids or any controlled medications was explained to the patient. Relevant questioning of the patient revealed nothing to suggest past or potential aberrant behavior or medication abuse or diversion. Emphasis was placed on tolerance abuse and dependence. The patient was educated on proper storage and safe keeping of controlled medications. The opioid medication use contract was reviewed and signed by the patient. The patient agrees to comply in full. The patient is aware that if there is any evidence of illicit substance abuse or diversion, the opiate prescriptions will immediately be canceled. The patient was also advised that random urine analysis or blood testing can be done at any time for screening and monitoring purposes. Reports improved quality of life; no adverse effects of opioid analgesics. Review of PDMP shows acceptable prescription patterns, no evidence of addiction, urine drug screen consistent with prescribed products, increased functionality and equivalent dose medically necessary due to none efficiency of the lower dose opiates was determined. Discussed multimodal pain management approach including medications, procedures, therapies and consultations as needed. Discussed role of non-opiate pain medication and role of extended release appeared medication. If appropriate may utilize opiates and non-opiate pain medications every 30 days and reassess benefits thereafter the expected duration of intervention is 99 months. As per [place] Bill 21, the prescription drug monitoring program (PDMP) was accessed and reviewed at today's visit prior to prescriptions being given. 08/17/2024 Other [facility] Time Spent 30-39 minutes. Time was spent in the following manner: Reviewing tests in preparation for the visit. Obtaining and/or reviewing separately obtained history. Performing a medically necessary appropriate examination. Counseling and educating the patient, family or caregiver. Ordering medications, tests, procedures. Referring and communicating with other healthcare providers. Documenting clinical information in the EHR. Independently interpreting results (not separately reported) and communications to the patient, family or caregiver. Care coordination. 11/23/2024 Other [facility] Time Spent 30-39 minutes. Time was spent in the following manner: Obtaining and/or reviewing separately obtained history. Performing a medically necessary appropriate examination. Ordering medications, tests, procedures. Documenting clinical information in the EHR. Independently interpreting results (not separately reported) and communications to the patient, family or caregiver. Care coordination. Reviewing tests in preparation for the visit. Counseling and educating the patient, family or caregiver. Referring and communicating other healthcare providers. Plan Of Treatment Pending Test Test Name Order Date X ray : Hip, bilateral 07/24/2024 X ray : Knee, left 2 views 07/24/2024 X ray : Knee, right 2 views 07/24/2024 Urine toxicology 07/24/2024 Insurance Providers Payer Name Payer Address Payer Phone Subscriber Number Group Number Insured Name Patient Relationship to Insured Coverage Start Date Coverage End Date [employer] G[employer] O [address] [address] [place], [place] [id number] [phone] [id number] Dylan Cooney Self - patient is the insured Medical (General) History Medical History History ICD Code diabetes hypertension gastroesophageal reflux disease depression constipation hyperlipidemia Arthritis bipolar disorder schizophrenia cane use Surgical History Surgery Date(Month/Year) elbow surgery (LEFT) neck surgery 1989 hand surgery 1979
--- OUTSIDE RECORDS SUMMARY | 2025-03-26 07:13 | XMS_ITS | Data Portability ---
Author Organization [place] - [facility] Dodge CL N [facility] Address [address] [facility] [address] [place] [address] Care Team Providers Care Weight Loss Physician Name Role Phone MOLLY DRIVER Primary Care [...] is anticipated once the fracture has healed [email or web address] Not available 03/12/2024 17:42:48 04/05/2024 04/05/2024 Impression: [...] MD, [address], [place], [address], 4 14:22:52 Procedures None recorded. Surgeries None recorded. Imaging XR, ankle, 3 or more view 2023 024 [email or web address] Sos [facility], [address], [place], [address], Ph [phone] 4 15:14:59 XR, tibia + fibula, 2 view 2023 024 [email or web address] S[facility], [address], [place], [address], Ph [phone] 4 15:14:59 XR, ankle, 3 or more view 2023 024 [email or web address] Sos [facility], [address], [place], [address], Ph [phone] 4 10:04:21 XR, tibia + fibula, 2 view 2023 024 [email or web address] Sos [facility], [address], [place], [address], Ph [phone] 4 10:04:04 XR, tibia + fibula, 2 view 2023 024 [email or web address] Sos [facility], [address], [place], [address], 4 16:26:57 Medication Orders None recorded. Patient [...] No observ ation record ed. eric Krishnan [facility] [address], [place], [address], 03/12/2024 14:23:30 04/05/20 24 XR, tibia + fibul a, 2 view No observ ation record ed. jose antonio [facility] [id number] [place] [address] [address], [place], [address], Ph [phone] 04/05/2024 10:04:04 04/05/20 24 XR, ankle , 3 or more view No observ ation record ed. jose antonio [address], [place], [address], Ph [phone] 04/05/2024 10:04:20 06/11/20 24 XR, tibia + fibul a, 2 view No observ ation record ed. savannah [address], [place], [address], Ph [phone] 06/11/2024 15:14:53 06/11/20 24 XR, ankle , 3 or more view No observ ation record ed. savannah [address], [place], [address], Ph [phone] 06/11/2024 15:14:42 Result Notes None recorded. Medical [...] Updated DateTime 03/12/2024 172.72 cm 24.5 kg/m2 70137.37 g Rodney Bourne [facility] 03/12/2024 14:25:49 Date Recorded Body height Body mass index (BMI) Body weight Provider Name and Address Organization Details Last Updated DateTime 04/05/2024 172.72 cm 24.5 kg/m2 46494.37 g Lawrence Jackson [facility] 04/05/2024 09:39:36 Social History Question Answer Notes LastModified by Organizat ion Details LastModified Time Tobacco Smoking Status Former Smoker Rodney [email or web address], [facility] 03/12/2024 14:26:10 What Was The Date Of Your Most Recent Tobacco Screening? 04/05/2024 [email or web address] Information not available 04/05/2024 Sex: Unknown Functional Status None recorded. Mental Status None recorded. Family History Nothing Reported. Medical History No medical history recorded. Past Encounters Encounter ID Performer Location Encounter Start Date Encounter Closed Date Diagnosis/Indication Diagnosis SNOMED-CT Code Diagnosis ICD10 Code Diagnosis Note [id number] Aaron Guerra MD [facility] [address] [place] [address] 03/12/2024 14:01:14 03/12/2024 15:40:30 Pain in right lower limb 749867872 M79.604 Fracture of fibula 74833 007 S82.861A Closed fra cture of medial malleolus of right distal tibia [id number] 9340338 S82.54XA [id number] Deyvi Vidal MD [facility] [address] [place], [place] [address] [place] [address] 04/05/2024 08:33:45 04/05/2024 14:02:26 Pain in right lower limb 552061459 M79.604 Pain of ri ght ankle joint 4888450752 1061347 M25.571 Closed fra cture of shaft of fibula 52242739 S82.431A Clinical and radiograph ic findings discussed [...] up in 2 weeks for reevaluati on. [id number] Deyvi Vidal MD [facility] [address] [place] [address] 06/11/2024 14:01:40 06/11/2024 16:39:20 Pain in right lower limb 301758227 M79.604 X-rays demonstrat e good overall bone alignment and progressiv e healing. Soft tissue are normal. There is otherwise no evidence of any new fracture, dislocatio n or osseous lesion. Pain of ri ght ankle joint 6856822627 9900455 M25.571 X-rays demonstrat e good overall bone alignment and progressiv e healing. Soft tissue are normal. There is otherwise no evidence of any new fracture, dislocatio n or osseous lesion. Closed fra cture of shaft of fibula 22378489 S82.431A Clinical and radiograph ic findings discussed at length with the patient. All questions were answered. I have advised the patient to initiate use of ice and NSAIDS (if tolerated) to reduce pain and swelling as needed and continue with activity modificati on. Patient ordered velocity ankle brace at today's [facility] that is medically necessary for ambulation and [...] (MEDICARE REPLACEMENT/A DVANTAGE - HMO) Dylan Navarro [id number] Dylan Navarro Notes Date Note Type Note [...] to work. Patient states he went to [facility] urgent care the day of his fall in [facility] and xrays and said he had [...] of the condition. The patient lives on [facility] [facility], [place] off [facility], near [facility]. Aaron Guerra MD [address], [place], [address], [facility] 03/12/2024 17:46:08 04/05/2024 text/html Patient presents to the clinic for right ankle new problem appointment. Patient reports current pain is severe. Patient states that 3 weeks ago he was in his kitchen, twisted around to talk to someone, and injured his right calf and ankle. Patient presents PWB with a short splint and walker. Deyvi Vidal MD [address], [place], [address], [facility] 04/05/2024 10:13:02 06/11/2024 text/html Patient presents to the clinic for right ankle follow up appointment. Patient reports current pain is mild. Patient denies any new falls or traumas since last appointment. Patient denies any calf tenderness. ZOILA ARAMBULA [address], [place], [address], [facility] 06/11/2024 15:15:35
== END 2025-03-25 07:11 | disposition home or self-care (01) ==
LOC: HO.HOSX 07:10
PROVIDERS: Visit Provider Physician Assistant
DX: S82.61XA Displaced fracture of lateral malleolus of right fibula, initial encounter for closed fracture (principal)
CPT/HCPCS: 73610; 99212

== ENCOUNTER 2025-03-25 10:57 | Outpatient (AMB) | payer MEDICARE, MEDICAID, SELFPAY ==
--- NOTE | 2025-03-25 11:24 | MHC.OFFVIS ---
Intake Visit Reasons: OV- Right lateral malleolus fx DOI 02/03/25 Intake Note: Dylan is a 59 year old male who presents today for a follow up of right lateral malleolus fracture, DOI 02/03/25. AT his last visit he was placed in a short leg cast, instructed to follow up in 4 weeks with cast off and x-rays updated. Patient reports he was placed in a splint due to cast being wet, he states ongoing pain however it has been tolerable. Allergies No Known Allergies Allergy (Mild, Verified 03/25/25 11:26) NONE Medication List - Last Reconciled 03/25/25 by Rigo Candelario PA-C acetaminophen ER 650 mg PO TID PRN aspirin 81 mg PO DAILY diclofenac sodium 25 mg PO BID PRN divalproex 500 mg PO BID dulaglutide (Trulicity) 1.5 mg subcut TU duloxetine 60 mg PO DAILY enoxaparin (Lovenox) 40 mg subcut DAILY fluticasone propionate 50 mcg/actuation 1 spray intranasal BID PRN gabapentin 600 mg PO BID ibuprofen (Advil) 200 mg PO Q6H PRN insulin glargine (Lantus Solostar U-100 Insulin) 15 units (0.15 mL) subcut BEDTIME insulin lispro 0 sliding scale doses subcut TIDAC metformin 850 mg PO BIDWM metoprolol succinate ER 50 mg PO BEDTIME midodrine 2.5 mg PO BID omeprazole 40 mg PO DAILY@0630 oxycodone 5 mg PO Q4H PRN primidone 50 mg PO BEDTIME quetiapine 100 mg PO BEDTIME tamsulosin 0.4 mg PO BEDTIME tramadol 50 mg PO BEDTIME HPI HPI OV- Right lateral malleolus fx DOI 02/03/25: Details: 59-year-old gentleman returns to the office today 6 weeks follow-up right ankle fracture date of injury 02/03/2025. He was placed in a cast at his last visit however this got wet a few days ago and was seen in the emergency department where the cast was removed and he was placed in a short-leg splint. The patient has been nonweightbearing. He states his pain has improved and he has no concerns. [facility] Medical History Cocaine abuse History of tobacco abuse History of alcohol abuse Penile lump Urinary incontinence GERD (gastroesophageal reflux disease) Osteoarthritis Injury of right hand Syncope Tremor of both hands Chronic low back pain Type 2 diabetes mellitus Depression Bipolar 1 disorder Schizophrenia Surgical History H/O cervical spine surgery Elbow joint replacement status Family History Mother HTN (hypertension) Diabetes Alzheimer disease Father Diabetes HTN (hypertension) Schizophrenia PVD (peripheral vascular disease) CAD (coronary artery disease) Bipolar 1 disorder Social History Household Members: Family Household Members Other:: sister Housing: Apartment Do you presently have visiting nurse or other home services: Yes Patient Tobacco Use Status: Former Tobacco user Advance Directives Date on File: 09/04/23 service: No Current occupational status: unemployed Review of Systems Const All systems reviewed & are unremarkable except as noted in HPI and below Physical Exam Const General: cooperative and no acute distress Orientation/consciousness: patient oriented x3 Resp Effort & Inspection: normal respiratory effort and able to speak in complete sentences Cardio Peripheral pulses: Peripheral pulses 2+ throughout Neuro General: patient oriented x3 Extrem Other: Right ankle normal to inspection no swelling. Mild tenderness over the distal fibula. No tenderness over the syndesmosis. Pulses present sensation intact. Results Reviewed Results Reviewed: X-rays of the right ankle obtained in the office today and reviewed by me show a healing minimally displaced distal fibular fracture. Ankle mortise intact. Assessment & Plan Assessment & Plan (1) Fracture of right ankle, lateral malleolus: Code(s): S82.61XA - Displaced fracture of lateral malleolus of right fibula, initial encounter for closed fracture Category: Medical Plan: Patient was transitioned to a boot weightbearing as tolerated. Can remove the boot for hygiene and exercises. If physical therapy order was placed for range of motion gentle strengthening and proprioceptive training. I would like to see him back in 6 weeks with x-rays, sooner if needed. Orders: Orders PT Evaluation and Treatment Today S82.61XA - Displaced fracture of lateral malleolus of right fibula, initial encounter for closed fracture XR ankle RT min 3V Today M25.571 - Pain in right ankle and joints of right foot Coding Level of Care Code Global (81098) Diagnoses Fracture of right ankle, lateral malleolus S82.61XA
--- OUTSIDE RECORDS SUMMARY | 2025-03-25 11:49 | XMS_ITS | Data Portability ---
Author Organization [place] [facility] Address [address] [facility] [address] [place] [address] Care Team Providers Care Top Stop Attacher Name Role Phone MOLLY DRIVER Primary Care Provider MOLLY DRIVER Referring Provider Assessment Encounter Date [...] is anticipated once the fracture has healed [email or web address] Not available 03/12/2024 17:42:48 04/05/2024 04/05/2024 Impression: [...] MD, [address], [place], [address], 4 14:22:52 Procedures None recorded. Surgeries None recorded. Imaging XR, ankle, 3 or more view 2023 024 [email or web address] Sos [facility], [address], [place], [address], Ph [phone] 4 15:14:59 XR, tibia + fibula, 2 view 2023 024 [email or web address] Sos [facility], [address], [place], [address], Ph [phone] 4 15:14:59 XR, ankle, 3 or more view 2023 024 [email or web address] Sos [facility], [address], [place], [address], Ph [phone] 4 10:04:21 XR, tibia + fibula, 2 view 2023 024 [email or web address] Sos [facility], [address], [place], [address], Ph [phone] 4 10:04:04 XR, tibia + fibula, 2 view 2023 024 [email or web address] Sos [facility], [address], [place], [address], 4 16:26:57 Medication Orders None recorded. Patient TargetsNo targets recorded. Patient InstructionsNo instructions recorded. Reason for Referral Orthopedic Surgeon Referral for Fracture of fibula Referring Physician: Aaron Guerra, Orthopedics, Encounter Date: 03/12/2024 Results Created Date Observation Date Name Description Value Unit Range Abnormal Flag Note LastModifiedBy Organization Detail LastModifiedTime 03/12/20 24 XR, tibia + fibul a, 2 view No observ ation record ed. eric Krishnan [facility] [address], [place], [address], 03/12/2024 14:23:30 04/05/20 24 XR, tibia + fibul a, 2 view No observ ation record ed. jose antonio [facility] [address] [place] [address] [address], [place], [address], Ph [phone] 04/05/2024 10:04:04 04/05/20 24 XR, ankle , 3 or more view No observ ation record ed. jose antonio [address], [place], [address], Ph [phone] 04/05/2024 10:04:20 06/11/20 24 XR, tibia + fibul a, 2 view No observ ation record ed. savannah [address], [place], [address], Ph [phone] 06/11/2024 15:14:53 06/11/20 24 XR, ankle , 3 or more view No observ ation record ed. savannah [address], [place], [address], Ph [phone] 06/11/2024 15:14:42 Result Notes None recorded. Medical Equipment None Reported. [...] Not Available Not Available duloxetine 60 mg capsule,delgado yed release TAKE 1 CAPSULE [...] Updated DateTime 03/12/2024 172.72 cm 24.5 kg/m2 54877.37 g Rodney Bourne [facility] 03/12/2024 14:25:49 Date Recorded Body height Body mass index (BMI) Body weight Provider Name and Address Organization Details Last Updated DateTime 04/05/2024 172.72 cm 24.5 kg/m2 68174.37 g Lawrence [place] [facility] 04/05/2024 09:39:36 Social History Question Answer Notes LastModified by Organizat ion Details LastModified Time Tobacco Smoking Status Former Smoker Rodney [email or web address], [facility] 03/12/2024 14:26:10 What Was The Date Of Your Most Recent Tobacco Screening? 04/05/2024 [email or web address] Information not available 04/05/2024 Sex: Unknown Functional Status None recorded. Mental Status None recorded. Family History Nothing Reported. Medical History No medical history recorded. Past Encounters Encounter ID Performer Location Encounter Start Date Encounter Closed Date Diagnosis/Indication Diagnosis SNOMED-CT Code Diagnosis ICD10 Code Diagnosis Note [id number] Aaron Guerra MD [facility] [address] [place] [address] 03/12/2024 14:01:14 03/12/2024 15:40:30 Pain in right lower limb 365962880 M79.604 Fracture of fibula 37542 007 S82.861A Closed fra cture of medial malleolus of right distal tibia [id number] 0470157 S82.54XA [id number] Deyvi Vidal MD [facility] [address] [place], [place] [address] [place] [address] 04/05/2024 08:33:45 04/05/2024 14:02:26 Pain in right lower limb [id number] M79.604 Pain of ri ght ankle joint 1433978315 4677852 M25.571 Closed fra cture of shaft of fibula 65099283 S82.431A Clinical and radiograph ic findings discussed at length with the patient. All questions were answered. I have advised the patient to initiate use of ice and NSAIDS (if tolerated) [...] of the boot. Patient advised to remain full weightbear ing. The patient will follow up in 2 weeks for reevaluati on. [id number] Deyvi Vidal MD [facility] [address] [facility] [place] [address] 06/11/2024 14:01:40 06/11/2024 16:39:20 Pain in right lower limb 947482442 M79.604 X-rays demonstrat e good overall bone alignment and progressiv e healing. Soft tissue are normal. There is otherwise no evidence of any new fracture, dislocatio n or osseous lesion. Pain of ri ght ankle joint 6269911184 8121905 M25.571 X-rays demonstrat e good overall bone alignment and progressiv e healing. Soft tissue are normal. There is otherwise no evidence of any new fracture, dislocatio n or osseous lesion. Closed fra cture of shaft of fibula 53193407 S82.431A Clinical and radiograph ic findings discussed at length with the patient. All questions were answered. I have advised the patient to initiate use of ice and NSAIDS (if tolerated) to reduce pain and swelling as needed and continue with activity modificati on. Patient ordered velocity ankle brace at [facility]'s [facility] that is medically necessary for ambulation and [...] 08/11/2024 1 [employer] - GOLD [employer]US (MEDICARE REPLACEMENT/A DVANTAGE - HMO) Dylan Navarro [id number] Dylan Navarro Notes Date Note Type Note [...] to work. Patient states he went to [facility] urgent care the day of his fall in [facility] and xrays and said he had [...] of the condition. The patient lives on [facility], [place] [address] off [facility], near [facility]. Aaron Guerra MD [address], [place], [address], [facility] 03/12/2024 17:46:08 04/05/2024 text/html Patient presents to the clinic for right ankle new problem appointment. Patient reports current pain is severe. Patient states that 3 weeks ago he was in his kitchen, twisted around to talk to someone, and injured his right calf and ankle. Patient presents PWB with a short splint and walker. Deyvi Vidal MD [address], [place], [address], [facility] 04/05/2024 10:13:02 06/11/2024 text/html Patient presents to the clinic for right ankle follow up appointment. Patient reports current pain is mild. Patient denies any new falls or traumas since last appointment. Patient denies any calf tenderness. ZOILA ARAMBULA [address], [place], [address], [facility] 06/11/2024 15:15:35
== END 2025-03-25 11:42 | disposition home or self-care (01) ==
LOC: HO.HOS 10:57
PROVIDERS: Visit Provider Physician Assistant
DX: S82.61XA Displaced fracture of lateral malleolus of right fibula, initial encounter for closed fracture (principal)
CPT/HCPCS: 99024

== ENCOUNTER → 2025-03-25 11:02 | Outpatient (BNV) | payer MEDICARE, MEDICAID, SELFPAY | PROVIDERS: Visit Provider Radiology Diagnostic Radiology | DX: S82.66 Nondisplaced fracture of lateral malleolus of unspecified fibula (principal) | CPT/HCPCS: 73610 ==

== ENCOUNTER 2025-03-27 13:14 | Outpatient (REF) | payer MEDICARE, MEDICAID, SELFPAY ==
--- OUTSIDE RECORDS SUMMARY | 2024-03-05 05:14 | XMS_ITS | Continuity of Care Document ---
Author Organization [facility] Address [address] [address] Phone Care Team Providers Care Nursery Hand Name Role Phone Jer FREY, Ujjwala Unavailable [...] 08/31/2023 appt with psych amrit hastings from [facility] Lantus U-100 Insulin 100 unit/mL [...] Has been filled by Psych so far Qui.lt Bebe 2 [place] use to read blood sugar QID - Active Advance Directives Directive Yes / No Effective Date File Name No Information Encounters Encounter Description Practice Location Reason(s) For Visit Diagnoses Date Provider [facility], [address] [facility] [address], [place], [place], [id number], [place] tel:[phone] [place] No Information Shreyas- 0-202 4 Jer Fletcherjjjanea. [address] [place], [place], [id number], [place]. tel:[phone] [facility], [address], [place], [place], [id number], [place] tel:[phone] [place] No Information January-2 4-202 4 Coon Ashlee. [address] [place], [place], [id number], [place]. tel:[phone] [facility], [address] [facility], [place], [place], [id number], [place] tel:[phone] [place] No Information January-2 3-202 4 Coon Ashlee. [address] [place], [place], [id number], [place]. tel:[phone] [facility], [address], [place], [place], [id number], [place] tel:[phone] [place] No Information Dec-3 0-202 4 Coon Ashlee. [address] [place], [place], [id number], [place]. tel:[phone] [facility], [address] [facility] [facility], [place], [place], [id number], [place] tel:[phone] [place] No Information Dec-2 2-202 4 Coon Ashlee. [address] [place], [place], [id number], [place]. tel:[phone] [facility], [address], [place], [place], [id number], [place] tel:[phone] [place] No Information Dec-1 9-202 4 Coon Ashlee. [address] [place], [place], [id number], [place]. tel:[phone] [facility], [address], [place], [place], [id number], [place] tel:[phone] [place] No Information 4 Coon Ashlee. [address] [place], [id number], [place]. tel:[phone] [facility], [address] [facility], [place], [place], [id number], [place] tel:[phone] [place] No Information 4 Pitsiladis Adelina. [address] [facility] [place], [id number], [place]. tel:[phone] [facility], [address] [address], [place], [place], [id number], [place] tel:[phone] [place] No Information 4 Coon Ashlee. [address] [facility] [address] [place], [id number], [place]. tel:[phone] [facility], [address] [facility], [place], [place], [id number], [place] tel:[phone] [place] Encounter for nutritional assessmentDiabetic nutritional counseling completed 4 Normile Caitlin. [address] [facility] [address] [place], [id number], [place]. tel:[phone] [facility], [address] [address], [place], [place], [id number], [place] tel:[phone] [place] No Information 4 Coon Ashlee. [address] [facility] [address] [place], [id number], [place]. tel:[phone] [facility], [address] [address], [place], [place], [id number], [place] tel:[phone] [place] Muscle weakness (generalized) b0 4 Brianna Leonarda. [address] [facility] [address] [place], [id number], [place]. tel:[phone] [facility], [address] [facility] [address], [place], [place], [id number], [place] tel:[phone] [place] Difficulty in walkin g, not elsewhere classified 4 [address] Caraballo. [address] [facility] [address] [place], [id number], [place]. tel:[phone] [facility], [address] [facility], [place], [place], [id number], [place] tel:[phone] [place] Muscle weakness (generalized) 4 Brianna Brower. [address] [facility] [address] [place], [id number], [place]. tel:[phone] [facility], [address] [facility], [place], [place], [id number], [place] tel:[phone] [place] Encounter for rehabilitation evaluation 4 Brianna Brower. [address], [place], [place], [id number], [place]. tel:[phone] [facility], [address] [facility] [address] [facility], [place], [place], [id number], [place] tel:[phone] [place] Semi-Annua l (chief complaint) cont (chief complaint) Type 2 diabetes mellitus with diabetic polyneuropathy, unspecified whether fci insulin useCurrent use of insulinSeizureOpioid dependence in remissionHistory of cocaine abusePTSD (post-traumatic stress disorder)Schizoaffectiv e disorder, bipolar typeHypercholesteremiaH ypertension, unspecified typeOrthostatic hypotensionEssential tremorCervical disc diseaseChronic bilateral low back pain without sciaticaOther chronic painObstructive sleep apneaDysautonomiaOhiohealth Nelsonville [facility] Center care maintenance 4 Shaggy Rosado. [address] [place], [id number], [place]. tel:[phone] [facility], [address] [facility] [address] [facility], [place], [place], [id number], [place] tel:[phone] [place] No Information 4 Coonbridgett Rosado. [address] [place], [place], [id number], [place]. tel:[phone] [facility], [address], [place], [place], [id number], [place] tel:[phone] [place] No Information 4 Jake Hoffman. [address] [place], [place], [id number], [place]. tel:[phone] [facility], [address], [place], [place], [address], [place] tel:[phone] [place] Difficulty in walkin g, not elsewhere classified [address] Caraballo[address] [place], [place], [id number], [place]. tel:[phone] [facility], [address], [place], [place], [id number], [place] tel:[phone] [place] Difficulty in walkin g, not elsewhere classified [address] Caraballo[address] [place], [place], [address], [place]. tel:[phone] [facility], [address], [place], [place], [id number], [place] tel:[phone] [place] Encounter for rehabilitation evaluationDifficulty in walking, not elsewhere classified [address] Caraballo. [address], [place], [place], [address], [place]. tel:[phone] [facility], [address], [place], [place], [id number], [place] tel:[phone] [place] No Information 3 Shaggy Rosado. [address] [place], [place], [id number], [place]. tel:[phone] [facility], [address], [place], [place], [id number], [place] tel:[phone] [place] Muscle weakness (generalized) Aug- 3 Court Caraballo. [address] [place], [place], [id number], [place]. tel:[phone] [facility], [address], [place], [place], [id number], [place] tel:[phone] [place] Other abnormalities of gait and mobility 3 [address] Caraballo. [address], [place], [place], [id number], [place]. tel:[phone] [facility], [address], [place], [place], [address], [place] tel:[phone] [place] No Information 3 Shaggy Rosado. [address] [place], [place], [address], [place]. tel:[phone] [facility], [address], [place], [place], [id number], [place] tel:[phone] [place] No Information 3 Shaggy Rosado. [address] [place], [place], [id number], [place]. tel:[phone] [facility], [address], [place], [place], [id number], [place] tel:[phone] [place] Difficulty in walkin g, not elsewhere classified [address]ab[address] [place], [place], [id number], [place]. tel:[phone] [facility], [address], [place], [place], [address], [place] tel:[phone] [place] Difficulty in walkin g, not elsewhere classified [address] [place], [place], [id number], [place]. tel:[phone] [facility], [address] [facility], [place], [place], [address], [place] tel:[phone] [place] Acute Visit (chief complaint) Essential tremorObstructive sleep apneaOrthostatic hypotensionOther chronic pain 3 Shaggy Rosado. [address] [place], [place], [id number], [place]. tel:[phone] [facility], [address] [facility], [place], [place], [id number], [place] tel:[phone] [place] Difficulty in walkin g, not elsewhere classified [address] Carab[address] [place], [place], [id number], [place]. tel:[phone] [facility], [address] [facility], [place], [place], [id number], [place] tel:[phone] [place] Difficulty in walkin g, not elsewhere classified [address]mi[address] [place], [place], [address], [place]. tel:[phone] [facility], [address] [facility], [place], [place], [id number], [place] tel:[phone] [place] Encounter for rehabilitation evaluation [address] Court Rashmi[address] [place], [place], [id number], [place]. tel:[phone] [facility], [address] [facility], [place], [place], [id number], [place] tel:[phone] [place] No Information 3 Danny Hodges. [address] [place], [place], [id number], [place]. tel:[phone] [facility], [address] [facility] [address], [place], [place], [address], [place] tel:[phone] [place] Semi-Annua l (chief complaint) Schizophrenia, unspecified typeBipolar 1 disorderHealthcare maintenanceObstructive sleep apneaEssential tremorChronic pain syndromeCervical disc diseaseSeizureHyperchol esteremiaChronic bilateral low back pain, unspecified whether sciatica presentOther chronic painErectile dysfunction, unspecified erectile dysfunction typeUrinary incontinence, unspecified typeType 2 diabetes mellitus with diabetic polyneuropathy, unspecified whether fci insulin useCurrent use of insulinPrimary hypertensionOpioid dependence in remissionHistory of cocaine abusePTSD (post-traumatic stress disorder) 3 Shaggy Rosado. [address] [facility] [address], [place], [place], [id number], [place]. tel:[phone] [facility], [address] [facility] [address] [facility], [place], [place], [id number], [place] tel:[phone] [place] Encounter for nutritional assessmentAt risk for inadequate oral intakeDiabetic nutritional counseling completed 3 Pelon Tucker. [address] [place], [place], [id number], [place]. tel:[phone] [facility], [address] [facility] [facility], [place], [place], [id number], [place] tel:[phone] [place] Dorsalgia, unspecified 3 Bhagavatula Uclaricejwala. [address] [facility] [address], [place], [place], [id number], [place]. tel:[phone] [facility], 1 [facility], [place], [place], [id number], [place] tel:[phone] [place] Encounter for genera l adult medical examination without abnormal findings 3 Robert Johnson. [address] [place], [place], [id number], [place]. tel:[phone] [facility], [address] [facility] [address], [place], [place], [id number], [place] tel:[phone] [place] Type 2 diabetes mellitus with other skin complications 3 Bhagavatula Ujjwala. [address] [facility] [address] [place], [address], [place]. tel:[phone] [facility], [address], [place], [place], [id number], [place] tel:[phone] [place] Other chest pain 3 Robert Johnson. [address] [place], [address], [place]. tel:[phone] [facility], [address] [facility] [address], [place], [place], [id number], [place] tel:[phone] [place] Encounter for nutritional assessmentDiabetes education, encounter forExcessive carbohydrate intakeAt risk for inadequate oral intake 3 Pelon Tucker. [address] [facility] [address] [place], [id number], [place]. tel:[phone] [facility], [address] [facility] [address], [place], [place], [address], [place] tel:[phone] [place] Other chronic pain 3 Praneeth Cerna. [address] [facility] [address], [place], [place], [id number], [place]. tel:[phone] [facility], [address] [facility] [address] [facility], [place], [place], [id number], [place] tel:[phone] [place] Encounter for rehabilitation evaluation 3 Praneeth Cerna. [address] [facility] [address] [place], [id number], [place]. tel:[phone] [facility], [address], [place], [place], [id number], [place] tel:[phone] [place] Encounter for rehabilitation evaluation 3 Jamshid Fregoso. [address] [facility] [address] [place], [id number], [place]. tel:[phone] [facility], [address], [place], [place], [address], [place] tel:[phone] [place] FATOU (chief complaint) Schizophrenia, unspecified typeBipolar 1 disorderLong term current use of antipsychotic medicationHistory of cocaine abuseHypertension, unspecified typeHypercholesteremiaT ype 2 diabetes mellitus with diabetic polyneuropathy, with long-term current use of insulinLong term (current) use of insulinEssential tremorSeizureLong term (current) use of oral hypoglycemic drugsOpioid dependence, in remission 3 Robert Alex. [address] [place], [place], [id number], [place]. tel:[phone] [facility], [address] [facility] [address], [place], [place], [address], [place] tel:[phone] [place] No Information 2 Danny Hodges. [address] [place], [place], [id number], [place]. tel:[phone] [facility], [address] [facility] [address] [facility], [place], [place], [id number], [place] tel:[phone] [place] Muscle weakness (generalized) 2 Kirsten Kip. [address] [place], [address]. tel:[phone] [facility], [address], [place], [place], [address], [place] tel:[phone] [place] PHV (chief complaint) snf current use of antipsychotic medicationAspiration pneumonia, unspecified aspiration pneumonia type, unspecified laterality, unspecified part of lung 2 Os Crissy. [address] [place], [place], [id number], [place]. tel:[phone] [facility], [address] [facility] [address] [place] [address], [id number], [place] tel:[phone] [place] No Information 2 Danny Hodges. [address] [place], [place], [id number], [place]. tel:[phone] [facility], [address] [facility] [address] [facility], [place], [place], [address], [place] tel:[phone] [place] Muscle weakness (generalized) 2 Kirsten Kip. [address] [place], [address]. tel:[phone] [facility], [address] [facility] [address] [facility], [place], [place], [id number], [place] tel:[phone] [place] Muscle weakness (generalized) 2 Kirsten Kip. [address] [place], [address]. tel:[phone] [facility], [address] [facility], [place], [place], [address], [place] tel:[phone] [place] No Information 2 Os Crissy. [address] [place], [id number], [place]. tel:[phone] [facility], [address] [facility], [place], [place], [address], [place] tel:[phone] [place] Hemiplegia and hemiparesis following unspecified cerebrovascular disease affecting right non-dominant sideMuscle weakness (generalized) 2 Kirsten Kip. [address] [place], [address]. tel:[phone] [facility], [address] [facility], [place], [place], [id number], [place] tel:[phone] [place] Diabetes education, encounter forEncounter for nutritional assessmentExcessive carbohydrate intake 2 Normile Caitlin. [address] [place], [place], [address], [place]. 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 [address] [place], [place], [id number], [place]. tel:[phone] [facility], [address] [facility], [place], [place], [address], [place] tel:[phone] [place] Extraction of tooth needed 2 Os Crissy. [address] [place], [place], [id number], [place]. tel:[phone] [facility], [address] [facility] [address] [facility], [place], [place], [address], [place] tel:[phone] [place] Muscle weakness (generalized) 2 Kirsten Kip. [address] [place], [address]. tel:[phone] [facility], [address] [facility] [address] [facility], [place], [place], [address], [place] tel:[phone] [place] Muscle weakness (generalized) 2 Kirsten Kip. [address], [place], [address]. tel:[phone] [facility], [address] [facility], [place], [place], [id number], [place] tel:[phone] [place] Obstructive sleep apnea 2 Os Crissy. [address] [place], [place], [address], [place]. tel:[phone] [facility], [address] [facility] [address] [facility], [place], [place], [id number], [place] tel:[phone] [place] Difficulty in walkin g, not elsewhere classified 2 Kirsten Kip. [address] [place], [address]. tel:[phone] [facility], [address] [facility] [address] [facility], [place], [place], [address], [place] tel:[phone] [place] Other chronic pain 2 Danny Carroll. [address] [place], [address], [place]. tel:[phone] [facility], [address] [facility] [address] [facility], [place], [place], [address], [place] tel:[phone] [place] Type 2 diabetes mellitus with diabetic polyneuropathy, unspecified whether fci insulin use 2 Os Crissy. [address] [place], [address], [place]. tel:[phone] [facility], [address] [facility] [address] [facility], [place], [place], [address], [place] tel:[phone] [place] FUV (chief complaint) Edema, unspecified type 2 Os Crissy. [address] [place], [address], [place]. tel:[phone] [facility], [address] [facility], [place], [place], [address], [place] tel:[phone] [place] PHV (chief complaint) Back pain, unspecified back location, unspecified back pain laterality, unspecified chronicity 2 Os Crissy. [address] [place], [place], [address], [place]. tel:[phone] [facility], [address] [facility] [address] [facility], [place], [place], [address], [place] tel:[phone] [place] OV (chief complaint) Current use of insulinFall, initial encounterType 2 diabetes mellitus without complication, with long-term current use of insulin 2 Os Crissy. [address] [place], [place], [id number], [place]. tel:[phone] [facility], [address] [facility] [address] [facility], [place], [place], [address], [place] tel:[phone] [place] No Information 2 Os Crissy. [address] [place], [place], [address], [place]. tel:[phone] [facility], [address] [facility] [address] [facility], [place], [place], [id number], [place] tel:[phone] [place] Type 2 diabetes mellitus with diabetic polyneuropathy, unspecified whether fci insulin use 2 Os Crissy. [address] [place], [place], [address], [place]. tel:[phone] [facility], [address] [facility], [place], [place], [address], [place] tel:[phone] [place] Encounter for nutritional assessmentAbnormal weight lossDiabetes education, encounter for 2 Normile Caitlin. [address] [place], [place], [id number], [place]. 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 [address] [place], [place], [address], [place]. tel:[phone] [facility], [address] [facility] [address], [place], [place], [address], [place] tel:[phone] [place] Encounter for rehabilitation evaluation 2 Kirsten Shin. [address], [place], [address]. tel:[phone] [facility], [address] [facility] [address] [facility], [place], [place], [address], [place] tel:[phone] [place] Encounter for rehabilitation evaluationDifficulty in walking, not elsewhere classifiedAlteration in performance of activities of daily living 2 Deirdre Garcia Zenobia Leonard. [address] [place], [place], [address]. tel:[phone] [facility], [address] [facility] [address] [facility], [place], [place], [address], [place] tel:[phone] [place] Encounter for genera l adult medical examination without abnormal findings 2 Jeffrey Robins. [address], [place], [place], [id number], [place]. tel:[phone] [facility], [address] [facility] [address] [facility], [place], [place], [address], [place] tel:[phone] [place] No Information 2 Aria Chambers. [address] [place], [address], [place]. tel:[phone] Family History Family Member Type Diagnosis Age At Onset Mother Problem Diabetes mellitus Father Problem Heart disease Immunizations Vaccine Date Status Comments Zoster recombinant subunit administered S ource: New Immunization Record Flu-IIV4, p-free administered Source: Ot er Registry COVID-19 Pfizer Bivalent 12y+ administere d Source: Other Registry Fluzone Quad administered [facility] e: New Immunization Record Prevnar 13 administered Source: New Imm unization Record Fluzone Quad [id number] administered Note: Got influenza vaccine same day as COVID ; Source: Other Registry COVID-19 (Pfizer) administered Source: Ot [facility] Provider COVID-19 (Pfizer) administered Source: Ot her Provider Payers Payer name Insurance type Covered constitution party ID Keiko berman(abiel) [facility] 16 [id number] [facility] 16 [id number] [facility] 16 [id number] [facility] 16 [id number] Social History Type Description Quantity Date Captured Comments Sex Male Smoking Status No Information Chief Complaint And Reason For Visit No Information Plan Of Treatment Date Type Action Status Referral Ordered: Referrals: Neurology. Location: [facility] Appointment date/timeframe: 10/26/2023 ordered Referral Ordered: Referrals: Cardiology. Location: [facility]. Consult Appointment date/timeframe: 02/28/2024 ordered Referral Ordered: Referrals: Pain Medicine. Consult ordered Referral Ordered: Referrals: Gastroenterology Appointment date/timeframe: 03/08/2023 ordered Referral Ordered: Referrals: [facility] [place] [facility] Evaluate and treat ordered Referral Ordered: Referrals: Podiatry Appointment date/timeframe: 11/29/2022 ordered Referral Ordered: Referrals: Preparer Making Department Appointment date/timeframe: 01/18/2023 ordered Referral Referred To: [...] 2D image, spectral Doppler, color flow image ([id number]), Ordered on: Ordered Future Order: Radiology Order Po lysomnography, 4+ add'l params ([id number]), Ordered on: Ordered History Of Present Illness Encounter Date Complaint History Of Prese nt Illness cont Neuro diagnostic : polysommogram with cpap on 04/19/2022 at [facility] referred for non-restorative sleep. Found [...] pain and reported had injections monthly in [place]. He states he had injections of Toradol. Worse pain in his back and his spine does not support his upper body and he falls from side to side but no falls recently. Sister said issue with morphine and this was stopped. Moved from [place] in apr 2021 to be with son who has brain tumor. Ppt was never seen by a provider needed [place] pain [place] notes and did not offer medical management at this time. This note was written by an RN and it was just a call to the ppt. Awaiting notes from [place] pain management to go any further. Currently pain more controlled does not seem interested at this point. Neurology: 10/26/2023 Dr. Villalpando [facility] went for tremor that has [...] anything in the last 5 years at [facility]. Referral placed awaiting for colonoscopy. Dexa: Has [...] given shingles vaccines today and due for rpkc5Kr:Mind: AxOx4 can be forgetful mild cognitive impairment moca in 10/2021 not reflective of cognitive ability, very independantMeds: sister helps with meds but makes him do it while supervises so he knows how to do itMobility: independentMM: Ppt wants to move to [place] and is his main goal. ROSDenies fever [...] sometimes praveena related to not living in [place]. Does not like the cold. Does still [...] and +s2Abd soft, non tender, non distended, +fmv0Mptxij gait Skin intactFeet well taken care for, nails trimmed, +pp, no edema, reduced microfilament test, +cmsCalm and cooperative Semi-Annual Patient was seen today for their Semiannual at the office accompanied by sister who is paid healthcare corporate account director. Marquise is known for cancelling or not showing up for appts and had cancelled this appt multiple times and had to be reminded the importance of coming into appts so we can take care of him. Marquise enrolled at in 10/2021. Marquise lives with his sister/paid healthcare corporate account director and son who his sister and himself take care of in a first floor appt in [place]. The main goal of marquise and his sister is to move to [place] to the sunshine and get away from the cold and meet up with family down there. This has been a goal for some time but has not come to fruition. The family will be going to [place] for 2 weeks of vacation and the [...] have orthostasis. No falls in last month. [facility] 09/04- presented for frequent falls at home [...] rain, snow and wants to move to [place]. Intermittent chest pressure/burning and dizziness/sweating when going up or down the stairs that goes away when sitting down. Ppt being worked up by neuro and cards recent hospitalization for syncope and dizziness due to orthostasis. Worried about his tremors and worried has parkinsons saw neuro today. ADLs/services: Sister is paid healthcare corporate account director and helps with meals, drives ppt to [...] this. Mental Health: Follows with Candace Hastings [facility] for schizoaffective disorder bipolar type and [...] has his own teeth and follows with [facility] dental last seen 05/16/2023 when he had a filling done however this was not scanned in. Denies issues with chewing or swallowing. Had a prior tooth extraction in may 2022. Currently no issues will assess follow up at next semi unless issues. Op[place]mology: [place] [facility] [place]22 ordered bifocals for presbyopia, age related cataracts bilateral not yet indicated for surgical intervention. Will need follow up at next semi. Cardiology: March 19, 2022 [facility] cardiology Dr. Banda for HTN had been on lisinopril and amlodipine in past that were stopped due to renal dysfunction ? blood clot in kidney per [facility]. Ppt had swelling at time and had [...] without regional wall motion.Endocrinology: I actually saw [facility] as endo provider through [facility] last apr 2022 most recently was seen [...] no nystagmusMAE=strongLSCTA bilaterallyheart rate regular +s1 and +c9zrwnnvpwm hand tremors moderate at rest and when [...] home accompanied by sister who is paid healthcare corporate account director. We have made multiple attempts to get ppt to come into site and call but no one picked up. Discussed with paid healthcare corporate account director that she needs to be available by phone. She checked her phone to make sure there was nothing wrong. She reported she never got any calls. We verified her number along with ppt. Ppt FATOU was due a week earlier but never showed up multiple times and then there was two provider changes. This is my first time meeting [facility] as new pcp. Ppt enrolled at in 10/2021. Ppt lives with his sister/paid healthcare corporate account director and son in an first floor appt in [place]. HHN will be getting VS as not done today due to equipment errorNo recent hospitalization, SNFs or falls per ppt, collective and [facility] review in the last year.Complaints/concerns: No real concerns. Sister feels ppt is a little down however ppt reports he just wishes he was living in [place] and that is his goal. ADLs/services: Sister is paid healthcare corporate account director and helps with meals, drives ppt to [...] has his own teeth and follows with [facility] last seen 05/16/2023 when he had a filling done. Denies issues with chewing or swallowing.Ophthalmology: [place] [facility] [place] seen 12/2022 ordered bifocals for presbyopia, age related cataracts bilateral not yet indicated for surgical intervention. Cardiology: March 19, 2022 [facility] cardiology Dr. Banda for HTN had been [...] actually saw ppt as endo provider through [facility] last apr 2022 most recently was seen [...] do at end of month. 2022 labs [facility] Urine microalbumin neg, lipid panel 108/217/33/32, alc 8%, cr 1.1 and gfr 81. Olvin wnlNlaisha diagnostic: polysommogram with cpap on 04/19/2022 at [facility] referred for non-restorative sleep. Found [...] pain and reported had injections monthly in [place]. He states he had injections of Toradol. Worse pain in his back and his spine does not support his upper body and he falls from side to side but no falls recently. Sister said issue with morphine and this was stopped. Moved from [place] in apr 2021 to be with son who has brain tumor. Ppt was never seen by a provider needed [place] pain [place] notes and did not offer medical management at this time. This note was written by an RN and it was just a call to the ppt. Awaiting notes from [place] pain management to go any further. Colonoscopy: ppt is unsure. I do not see anything in the last 5 years at [facility]. Will try to find if he has [...] for shingles vaccines, tdap, and flu in kmtw3Go:Mind: AxOx4 can be forgetful mild cognitive impairment [...] sometimes praveena related [place] middle [place] [id number] intact Pt has own teeth with no concerns Moist mucous membranesNo enlarged cervical lymph nodes, thyroid inspected with no nodules palpatedBilateral hand tremor restingLSCTA bilaterally Heart regular rate +s1 and +s2Abd soft, non tender, non distended, +cxg3Pjgfai gait Skin intactFeet well taken care for, [...] - appt pending Prescriber - Candace Hastings ([facility])No questions or concerns he is doing so much better reports a family memberHX OF COCCAINE/OPIOID ABUSEDenies current useHTNMetoprololBP 104/70 todayLabs later DM w/ [id number] - 7% (04/2022)Foot exam?Metformin, lantus, HumalogDoes not [...] injections- pt cant go until records form [place] get to pain clinic-Pysch: referral in place- [...] for a PHV. Pt was brought to [facility] on 01/25 for back pain. He received [...] his 30s when he was living in [place]. He reported his ex- determined he had [...] is a good support along with his holiness. -Currently denies any type of hallucinations or delusions. Denies wanting to hurt himself or anyone else. Denies SI. Both he and his sister feel he is the best he has been and in a stable place. Reports a little depressed as he wants to move to [place] but comes and goes. Follows with Candace Hastings [facility] for schizoaffective disorder bipolar type and [...] prnSW is working on getting ppt into [facility] therapyContinue to monitor Related to Schizoaffective [...] a good support and also Jehovah witness holiness. No longer doing drugs for some time [...] the same as well as sister (in [place])denies any current useusing non opioid alternatives for chronic pain with sucess like gabapentin and cymbalta Related to Opioid dependence in remission no seizure activityN a wnl at [facility] depokote 375 bid with valporic acid level [...] saw ppt a s endo provider through [facility] last apr 2022 most recently was seen [...] diabetes mellitus with diabetic polyneuropathy, unspecified whether fci insulin use wants cpr but dni wh ich doesn't make sense but does not want to change anything. Ppt is his own person and educated.lives with sister who is hcp proxy and paid care givergoal [place] if [...] po lysommogram with cpap on 04/19/2022 at [facility] referred for non-restorative sleep. Found [...] notes from pts previous pain clinic in [facility].Pt does not want any aggressive measures nor wanting any narcotics d/t past hx of addition. Currently on cymbalta, gabapentin and voltaren, tylenol and recently went up on gabapentin. Reports pain controlled. Since pain clinic won't see him without [place] notes and unable to obtain and ppt reports controlled willl d/c referral ppt is okay with this. Related to Chronic bilateral low back pain without sciatica Chronic back pain r/ t multiple surgeries per pt. Pt has pain clinic referral though pain clinic is waiting for past notes from pts previous pain clinic in [facility].Pt does not want any aggressive measures nor wanting any narcotics d/t past hx of addition. Currently on cymbalta, gabapentin and voltaren, tylenol and recently went up on gabapentin. Reports pain controlled. Since pain clinic won't see him without [place] notes and unable to obtain and ppt reports controlled willl d/c referral ppt is okay with this. Related to Other chronic pain I have deterioratio n of my spine like my father he reported. He reports he had been getting monthly injections in his neck and spine. Last injection was in [place].Pt reports chronic pain in his back. He [...] placed but unable to get notes from [place] and wont' see him. Reports currently pain controlled and does not need referral. Related to Cervical disc disease 10/26/[address] Sanjay finley from [place] [facility] due to ongoing tremors affecting quality [...] gait and speech at times. However admitted [facility] 09/04-[facility]/08 for syncope found to have orthostasis [...] continue to follow.Saw neuro on 10/08/[address]23 Dr. Vlilalpando reported primary problem is dysautonomia causing dizziness [...] plan to do echo. Treadmill standard with [facility] on 09/2008 due to chest pain found [...] can result in this had admit [place] [facility] [place] for syncope, falls, dizziness found [...] pain and reported had injections monthly in [place]. He states he had injections of Toradol. Worse pain in his back and his spine does not support his upper body and he falls from side to side but no falls recently until today. Sister said issue with morphine and this was stopped. Moved from [place] in apr 2021 to be with son who has brain tumor. Ppt was never seen by a provider needed [place] pain [place] notes and did not offer medical management at this time. This note was written by an RN and it was just a call to the ppt. Awaiting notes from [place] pain management to go any further. on [...] po lysommogram with cpap on 04/19/2022 at [facility] referred for non-restorative sleep. Found [...] pain mangement but didn't have records from [facility] so wouldn't see him per pptneuro [...] opioids ie morphineppt enodrses the same (in [place])denies any current usewill re-eval for acute pain/surgical [...] saw ppt a s endo provider through [facility] last apr 2022 most recently was seen [...] do at end of month. 2022 labs [facility] Urine microalbumin neg, lipid panel 108/217/33/32, alc 8%, cr 1.1 and gfr 81. Lytes wnlgoal alc less than 7% and discussed microvascular and macrovascular complications of uncontrolled dm Related to Type 2 diabetes mellitus with diabetic polyneuropathy, unspecified whether fci insulin use has seen urology in past [...] notes from pts previous pain clinic in [facility].Pt does not want any aggressive measures nor [...] notes from pts previous pain clinic in [facility].Pt does not want any aggressive measures nor [...] pain and reported had injections monthly in [place]. He states he had injections of Toradol. Worse pain in his back and his spine does not support his upper body and he falls from side to side but no falls recently. Sister said issue with morphine and this was stopped. Moved from [place] in apr 2021 to be with son who has brain tumor. Ppt was never seen by a provider needed [place] pain [place] notes and did not offer medical management at this time. This note was written by an RN and it was just a call to the ppt. Awaiting notes from [place] pain management to go any further. on [...] po lysommogram with cpap on 04/19/2022 at [facility] referred for non-restorative sleep. Found [...] care givergoal [place] if not due for oneno longer needs to see endo I can manage thatcontinue to follow with pysch Related to Healthcare maintenance bipolar well control led without symptoms just some mild sadness as he wants to move to [place] but reports he is happy most days [...] his 30s when he was living in [place]. He reported his ex- determined he had [...] depressed as he wants to move to [place] but comes and goes. -Continue: seroquel 100mg [...] dependance on opioidsppt enodrses the same (in [place])denies any current usewill re-eval for acute pain/surgical [...] exam benign except for decreased sensationref to [id number] and labs todayeval ongoing Related to Type 2 diabetes mellitus with diabetic polyneuropathy, with long-term current use of insulin last a1c 7.00using C GMsugars sometimes labile - may be d/t antipsychotic use continues on humalog, lantus, metforminfoot exam benign except for decreased sensationref to [id number] and labs todayeval ongoing Related to snf (current) use of insulin continues on STATIN [...] cymbalta, seroq uel, trazodone, ziprasidone 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 He did not receive the medication nor notify [facility] until Tuesday that the pharmacy could not fill as they were out of stock . Ppt did tell SE he would be going back to [facility] for symptoms on 06/28/22 at 4:15p. Ppt [...] type, unspecified laterality, unspecified part of lung [facility] 05/29 Admitted for sepsis secondary to likely aspiration pneumonia in the setting of extrapyramidal symptoms from Antipsychotics. He was given ceftriaxone, doxycycline sepsis resolved and was discharged home on 7 more days of augmentin.Medication changes:Antipsychotics have been prescribed by Jeremias Vizcarra's office-Seroquel 100mg at bedtime-Depakote DR 375mg BID Related to snf current use of antipsychotic medication Pt reports [...] for medical records from pain clinic in [place] Related to Opioid dependence, in remission Chronic back pain r/ t multiple surgeries per pt. Pt has pain clinic referral though pain clinic is waiting for past notes from pts previous pain clinic in [facility].Pt does not want any aggressive measures nor [...] prescribed and managed by psych. Related to snf current use of antipsychotic medication Pt at [...] taking his medication from previous PCP in [place]). He had been referred to a therapist [...] and made the following recommendations -Changed: insulin [id number]> 17unitsSTARTED lantus 24units in AMCONTINUE metformin 500mg BIDNeuropathy reported in paul feet; numbness and tingling.Abnormal monofilment exam, loss of protective sensation. Diabetic foot exam education. -Continue gabapentin-Education provided on new medications and daily feet checks. Related to Type 2 diabetes mellitus with diabetic polyneuropathy, unspecified whether fci insulin use No symptoms reported at this [...] his 30s when he was living in [place]. He reported his ex- determined he had [...] and made the following recommendations -Changed: insulin [id number]> 17unitsSTARTED lantus 24units in AMCONTINUE metformin 500mg [...] diabetes mellitus with diabetic polyneuropathy, unspecified whether fci insulin use Discussed during las t visit [...] a PHV . Pt was brought to [facility] on 01/25 for back pain. He received 3 injections (1 in each arm and one in his left leg per sister). Today pt continues to complain of back pain. Pt had been going to pain clinic when he was living in [place] and reported relief w/ injections.Plan: Discussed trying [...] Current use of insulin History of T2DM [facility] age 34 being treated w/ metformin [...] diabetes mellitus with diabetic polyneuropathy, unspecified whether nutritional chemist insulin use Denied cocaine abuse early in our conversation though then discussed cocaine use for a suicide attempt. -Has attempted suicide 2x in the past: cutting and cocaine overdose. Identifies his sister is a good support. Plan: drug screen Related to History of cocaine abuse History of T2DM [facility] age 34 being treated w/ metformin [...] diabetes mellitus with diabetic polyneuropathy, unspecified whether fci insulin use I have deterieratio n of my spine like my father . He reports he had been getting monthly injections in his neck and spine. Last injection was in [place] 5 months ago. Pt reports 8/10 pain [...] tremor has been noted since living in [place]. Treated w/ primidone.He is on several psychiatric medications which could be contributing. Related to Essential tremor ED treated w/ a IPP 10 years ago. He takes testosterone injections monthly though has not taken since leaving [place] 5 months ago. Discussed referring back to urology for guidance on the need to continue injections. Plan: refer to urology Related to Erectile dysfunction, unspecified erectile dysfunction type Pt had been diagnose d w/ bipolar and schizophrenia in his 30s when he was living in [place]. He reported his ex- determined he had [...] taking his medication from previous PCP in [place]). He had been referred to a therapist [...] his 30s when he was living in [place]. He reported his ex- determined he had [...] taking his medication from previous PCP in [place]). He had been referred to a therapist [...] taking his medication from previous PCP in [place]). He had been referred to a therapist [...] taking his medication from previous PCP in [place]). -Continue: seroquel 200mg at bedtime ziprasidone 80mg at bedtime, fluoxetine 60mg daily, primodone 50mg daily, trazodone 10mg daily, and depakote 1000mg daily. -prescirbed and managed by psych; pt reports ziprasidone was increased but unsure of dose.11/10/21 EKG: normal; QT/QTC 406/418Ordered valporic acid level, primidone level Related to snf current use of antipsychotic medication Pt reports I had a seizure along time ago . No clarity on when this event took place. He is on depakote. Related to Seizure BP 114/60-Currently taking metoprolol and lisinopril Related to Hypertension, unspecified type Per preenrollment re cords. Lipid panel ordered.-Currently taking [id number] daily Related to Hypercholesteremia History of T2DM [...]
[2025-03-27 13:35] LABS: MANUAL DIFF FLAG NO
--- OUTSIDE RECORDS SUMMARY | 2025-03-27 13:52 | XMS_ITS | Data Portability ---
Author Organization [place] [facility] CL N [facility] Address [address] [place] [address] Care Team Providers Care Towboat Captain Name Role Phone MOLLY DRIVER Primary Care Provider [phone] MOLLY DRIVER Referring Provider [phone] Assessment Encounter Date Assessment Date Assessment LastModified [...] is anticipated once the fracture has healed [email or web address] Not available 03/12/2024 17:42:48 04/05/2024 04/05/2024 Impression: [...] MD, [address], [place], [address], 4 14:22:52 Procedures None recorded. Surgeries None recorded. Imaging XR, ankle, 3 or more view 2023 024 [email or web address] Sos [facility], [address], [place], [address], Ph [phone] 4 15:14:59 XR, tibia + fibula, 2 view 2023 024 [email or web address] Sos [facility], [address], [place], [address], Ph [phone] 4 15:14:59 XR, ankle, 3 or more view 2023 024 [email or web address] Sos [facility], [address], [place], [address], Ph [phone] 4 10:04:21 XR, tibia + fibula, 2 view 2023 024 [email or web address] Sos [facility], [address], [place], [address], Ph [phone] 4 10:04:04 XR, tibia + fibula, 2 view 2023 024 [email or web address] Sos [facility], [address] [facility], [place], [address], 4 16:26:57 Medication Orders None recorded. Patient [...] No observ ation record ed. eric Krishnan [facility] [address], [place], [address], 03/12/2024 14:23:30 04/05/20 24 XR, tibia + fibul a, 2 view No observ ation record ed. jose antonio [facility] [address] [place] [address] [address], [place], [address], Ph [phone] 04/05/2024 10:04:04 04/05/20 24 XR, ankle , 3 or more view No observ ation record ed. jose antonio [address], [place], [address], Ph [phone] 04/05/2024 10:04:20 06/11/20 24 XR, tibia + fibul a, 2 view No observ ation record ed. savannah [address], [place], [address], Ph [phone] 06/11/2024 15:14:53 06/11/20 24 XR, ankle , 3 or more view No observ ation record ed. savannah [address], [place], [address], Ph [phone] 06/11/2024 15:14:42 Result Notes None recorded. Medical [...] Updated DateTime 03/12/2024 172.72 cm 24.5 kg/m2 70869.37 g Rodney Bourne [facility] 03/12/2024 14:25:49 Date Recorded Body height Body mass index (BMI) Body weight Provider Name and Address Organization Details Last Updated DateTime 04/05/2024 172.72 cm 24.5 kg/m2 47085.37 g Lawrence Jackson [facility] 04/05/2024 09:39:36 Social History Question Answer Notes LastModified by Organizat ion Details LastModified Time Tobacco Smoking Status Former Smoker Rodney amezcua, [facility] 03/12/2024 14:26:10 What Was The Date Of Your Most Recent Tobacco Screening? 04/05/2024 [email or web address] Information not available 04/05/2024 Sex: Unknown Functional Status None recorded. Mental Status None recorded. Family History Nothing Reported. Medical History No medical history recorded. Past Encounters Encounter ID Performer Location Encounter Start Date Encounter Closed Date Diagnosis/Indication Diagnosis SNOMED-CT Code Diagnosis ICD10 Code Diagnosis Note [id number] Aaron Guerra MD [facility] [address] [place] [address] 03/12/2024 14:01:14 03/12/2024 15:40:30 Pain in right lower limb 953682463 M79.604 Fracture of fibula 92475 007 S82.861A Closed fra cture of medial malleolus of right distal tibia [id number] 7717858 S82.54XA [id number] Deyvi Vidal MD [facility] [address] [place], [place] [address] [place] [address] 04/05/2024 08:33:45 04/05/2024 14:02:26 Pain in right lower limb 769910904 M79.604 Pain of ri ght ankle joint 1023554429 7604736 M25.571 Closed fra cture of shaft of fibula 16714622 S82.431A Clinical and radiograph ic findings discussed [...] up in 2 weeks for reevaluati on. [id number] Deyvi Vidal MD [facility] [address] [place] [address] 06/11/2024 14:01:40 06/11/2024 16:39:20 Pain in right lower limb 682736175 M79.604 X-rays demonstrat e good overall bone alignment and progressiv e healing. Soft tissue are normal. There is otherwise no evidence of any new fracture, dislocatio n or osseous lesion. Pain of ri ght ankle joint 3863742765 3347016 M25.571 X-rays demonstrat e good overall bone alignment and progressiv e healing. Soft tissue are normal. There is otherwise no evidence of any new fracture, dislocatio n or osseous lesion. Closed fra cture of shaft of fibula 73838143 S82.431A Clinical and radiograph ic findings discussed at length with the patient. All questions were answered. I have advised the patient to initiate use of ice and NSAIDS (if tolerated) to reduce pain and swelling as needed and continue with activity modificati on. Patient ordered velocity ankle brace at today's [facility] that is medically necessary for ambulation and [...] (MEDICARE REPLACEMENT/A DVANTAGE - HMO) Dylan Navarro [id number] Dylan Navarro Notes Date Note Type Note [...] to work. Patient states he went to [facility] urgent care the day of his fall in [facility] and xrays and said he had [...] of the condition. The patient lives on [facility] [address], [place] [address] [facility], near [facility]. Aaron Guerra MD [address] [facility] [facility],[address], [place], [address], [facility] 03/12/2024 17:46:08 04/05/2024 text/html Patient presents to the clinic for right ankle new problem appointment. Patient reports current pain is severe. Patient states that 3 weeks ago he was in his kitchen, twisted around to talk to someone, and injured his right calf and ankle. Patient presents PWB with a short splint and walker. Deyvi Vidal MD [address] [facility],[address], [place], [address], [facility] 04/05/2024 10:13:02 06/11/2024 text/html Patient presents to the clinic for right ankle follow up appointment. Patient reports current pain is mild. Patient denies any new falls or traumas since last appointment. Patient denies any calf tenderness. ZOILA ARAMBULA [address] [facility] [facility],[address], [place], [address], [facility] - [facility] 06/11/2024 15:15:35
[2025-03-27 14:14] LABS: Hemoglobin A1C 184.4456 umol/L; Total Hemoglobin (HGBA1C) 3520.7009 umol/L
[2025-03-27 14:15] LABS: Hematocrit 39.1 % (42.0-52.0); Hemoglobin 13.7 g/dl (14.0-18.0); Imm Gran Abs Auto 0.02 X10*3/uL (0.00-0.03); Imm Gran Pct Auto 0.3 % (0.0-0.4); Lymphocytes Absolute Auto 1.8 X10*3/uL (1.2-4.9); Mean Corpuscular HGB Conc 35.0 g/dl (31.0-36.0); Mean Corpuscular Hemoglobin 30.3 pg (27.0-33.0); Mean Corpuscular Volume 86.5 fL (80.0-98.0); NRBC Abs Auto 0.000 X10*3/uL (0.0-0.012); NRBC Pct Auto 0.0 /100WBC (0.0-0.2); Platelet Count 253 X10*3/uL (160-400); Red Blood Count 4.52 X10*6/uL (4.60-5.80); White Blood Count 6.1 X10*3/uL (4.8-10.8)
[2025-03-27 14:41] LABS: Alanine Aminotransferase 68 U/L (0-40); Albumin Level 4.5 g/dL (3.5-5.0); Alkaline Phosphatase 88 U/L (39-117); Anion Gap 10 (12-20); Aspartate Amino Transferase 38 U/L (5-37); Blood Urea Nitrogen 19 mg/dL (9-16); Calcium 9.7 mg/dL (8.4-10.2); Carbon Dioxide 28 mmol/L (22-29); Chloride 107 mmol/L (96-108); Cholesterol 88 mg/dL (<200); Estimated Glomerular Filt Rate > 60; HDL Cholesterol 28 mg/dL (>40); Potassium 4.7 mmol/L (3.3-5.1); Sodium 140 mmol/L (135-145); Total Protein 7.9 g/dL (6.5-8.0); Triglycerides 94 mg/dL (<150)
[2025-03-27 14:55] LABS: Thyroid Stimulating Hormone 0.98 uIU/mL (0.32-4.0)
== END 2025-03-27 13:15 | disposition home or self-care (01) ==
LOC: HO.LAB 13:14
PROVIDERS: PCP Internal Medicine; Visit Provider Internal Medicine
DX: Z12.5 Encounter for screening for malignant neoplasm of prostate (principal); E11.65 Type 2 diabetes mellitus with hyperglycemia; E78.00 Pure hypercholesterolemia, unspecified; F20.1 Disorganized schizophrenia; G25.2 Other specified forms of tremor; I47.19 Other supraventricular tachycardia; N40.1 Benign prostatic hyperplasia with lower urinary tract symptoms; R55 Syncope and collapse; M84.371D Stress fracture, right ankle, subsequent encounter for fracture with routine healing; Z79.899 Other long term (current) drug therapy
CPT/HCPCS: 36415; 80053; 80061; 80164; 83036; 84153; 84443; 85025

== ENCOUNTER 2025-03-28 15:45 | Outpatient (REF) | payer MEDICARE, MEDICAID, SELFPAY ==
--- OUTSIDE RECORDS SUMMARY | 2024-03-05 05:14 | XMS_ITS | Continuity of Care Document ---
Author Organization [facility] [place] Address [address] [address] Phone Care Team Providers Care Assistant Professor Of Forestry Name Role Phone Jer FREY, Ujjwala Unavailable [...] 08/31/2023 appt with psych amrit hastings from [facility] Lantus U-100 Insulin 100 unit/mL subcutaneous solution [...] Has been filled by Psych so far Walltik Bebe 2 Mc[place]en use to read blood sugar QID - Active Advance Directives Directive Yes / No Effective Date File Name No Information Encounters Encounter Description Practice Location Reason(s) For Visit Diagnoses Date Provider [facility], [address], [place], [place], [id number], [place] tel:[phone] [place] No Information Shreyas- 0-202 4 Jer Fletcherjjjanea. [address] [place], [place], [id number], [place]. tel:[phone] [facility], [address], [place], [place], [id number], [place] tel:[phone] [place] No Information January-2 4-202 4 Coon Ashlee. [address] [place], [place], [id number], [place]. tel:[phone] [facility], [address] [facility], [place], [place], [id number], [place] tel:[phone] [place] No Information January-2 3-202 4 Coon Ashlee. [address] [place], [place], [id number], [place]. tel:[phone] [facility], [address], [place], [place], [id number], [place] tel:[phone] [place] No Information Dec-3 0-202 4 Coon Ashlee. [address] [place], [place], [id number], [place]. tel:[phone] [facility], [address] [facility], [place], [place], [id number], [place] tel:[phone] [place] No Information Dec-2 2-202 4 Coon Ashlee. [address] [place], [place], [address], [place]. tel:[phone] [facility], [address], [place], [place], [id number], [place] tel:[phone] [place] No Information Dec-1 9-202 4 Coon Ashlee. [address] [place], [place], [id number], [place]. tel:[phone] [facility], [address], [place], [place], [id number], [place] tel:[phone] [place] No Information 4 Coon Ashlee. [address] [place], [id number], [place]. tel:[phone] [facility], [address] [facility], [place], [place], [address], [place] tel:[phone] [place] No Information 4 Pitsiladis Adelina. [address] [facility] [place], [id number], [place]. tel:[phone] [facility], [address] [address], [place], [place], [id number], [place] tel:[phone] [place] No Information 4 Coon Ashlee. 101 [facility] [place], [id number], [place]. tel:[phone] [facility], [address] [facility], [place], [place], [id number], [place] tel:[phone] [place] Encounter for nutritional assessmentDiabetic nutritional counseling completed 4 Normile Caitlin. 101 [facility] [place], [id number], [place]. tel:[phone] [facility], [address] [address], [place], [place], [address], [place] tel:[phone] [place] No Information 4 Coon Ashlee. 101 [facility] [place], [id number], [place]. tel:[phone] [facility], [address] [address], [place], [place], [address], [place] tel:[phone] [place] Muscle weakness (generalized) b0 4 Brianna Leonarda. 101 [facility] [place], [address], [place]. tel:[phone] [facility], [address] [facility] [address], [place], [place], [address], [place] tel:[phone] [place] Difficulty in walkin g, not elsewhere classified 4 Court Caraballo. 101 [facility] [place], [id number], [place]. tel:[phone] [facility], [address] [facility], [place], [place], [id number], [place] tel:[phone] [place] Muscle weakness (generalized) 4 Brianna Brower. 101 [facility] [place], [address], [place]. tel:[phone] [facility], [address] [facility], [place], [place], [id number], [place] tel:[phone] [place] Encounter for rehabilitation evaluation 4 Brianna Brower. [address], [place], [place], [address], [place]. tel:[phone] [facility], [address] [address] [facility], [place], [place], [address], [place] tel:[phone] [place] Semi-Annua l (chief complaint) cont (chief complaint) Type 2 diabetes mellitus with diabetic polyneuropathy, unspecified whether long-term insulin useCurrent use of insulinSeizureOpioid dependence in remissionHistory of cocaine abusePTSD (post-traumatic stress disorder)Schizoaffectiv e disorder, bipolar typeHypercholesteremiaH ypertension, unspecified typeOrthostatic hypotensionEssential tremorCervical disc diseaseChronic bilateral low back pain without sciaticaOther chronic painObstructive sleep apneaDysautonomiaSt. Rita'S Hospital care maintenance 4 Shaggy Rosado. [address] [place], [place], [address], [place]. tel:[phone] [facility], [address] [facility], [place], [place], [id number], [place] tel:[phone] [place] No Information 4 Coonbridgett Rosado. [address] [place], [place], [id number], [place]. tel:[phone] [facility], [address], [place], [place], [id number], [place] tel:[phone] [place] No Information 4 Jake Hoffman. [address] [place], [place], [id number], [place]. tel:[phone] [facility], [address], [place], [place], [id number], [place] tel:[phone] [place] Difficulty in walkin g, not elsewhere classified [address] Caraballo. [address] [place], [place], [address], [place]. tel:[phone] [facility], [address], [place], [place], [id number], [place] tel:[phone] [place] Difficulty in walkin g, not elsewhere classified [address] Caraballo[address] [place], [place], [address], [place]. tel:[phone] [facility], [address], [place], [place], [address], [place] tel:[phone] [place] Encounter for rehabilitation evaluationDifficulty in walking, not elsewhere classified [address] Caraballo. [address], [place], [place], [address], [place]. tel:[phone] [facility], [address], [place], [place], [address], [place] tel:[phone] [place] No Information 3 Shaggy Rosado. [address] [place], [place], [address], [place]. tel:[phone] [facility], [address], [place], [place], [address], [place] tel:[phone] [place] Muscle weakness (generalized) Aug- 3 Court Caraballo. [address] [place], [place], [address], [place]. tel:[phone] [facility], [address], [place], [place], [address], [place] tel:[phone] [place] Other abnormalities of gait and mobility 3 [address] Caraballo. [address], [place], [place], [address], [place]. tel:[phone] [facility], [address], [place], [place], [address], [place] tel:[phone] [place] No Information 3 Shaggy Rosado. [address] [place], [place], [address], [place]. tel:[phone] [facility], [address], [place], [place], [address], [place] tel:[phone] [place] No Information 3 Shaggy Rosado. [address] [place], [place], [address], [place]. tel:[phone] [facility], [address], [place], [place], [address], [place] tel:[phone] [place] Difficulty in walkin g, not elsewhere classified [address] Caraballo[address] [place], [place], [address], [place]. tel:[phone] [facility], [address], [place], [place], [id number], [place] tel:[phone] [place] Difficulty in walkin g, not elsewhere classified [address] Caraballo[address] [place], [place], [address], [place]. tel:[phone] [facility], [address] [facility], [place], [place], [address], [place] tel:[phone] [place] Acute Visit (chief complaint) Essential tremorObstructive sleep apneaOrthostatic hypotensionOther chronic pain 3 Shaggy Rosado. [address] [place], [place], [id number], [place]. tel:[phone] [facility], [address] [facility], [place], [place], [address], [place] tel:[phone] [place] Difficulty in walkin g, not elsewhere classified [address] Carab[address] [place], [place], [address], [place]. tel:[phone] [facility], [address] [facility], [place], [place], [id number], [place] tel:[phone] [place] Difficulty in walkin g, not elsewhere classified [address] Rashmi[address] [place], [place], [address], [place]. tel:[phone] [facility], [address] [facility], [place], [place], [address], [place] tel:[phone] [place] Encounter for rehabilitation evaluation 3 Court Rashmi. [address] [place], [place], [id number], [place]. tel:[phone] [facility], [address] [facility], [place], [place], [address], [place] tel:[phone] [place] No Information 3 Danny Hodges. [address] [place], [place], [id number], [place]. tel:[phone] [facility], [address], [place], [place], [address], [place] tel:[phone] [place] Semi-Annua l (chief complaint) Schizophrenia, unspecified typeBipolar 1 disorderHealthcare maintenanceObstructive sleep apneaEssential tremorChronic pain syndromeCervical disc diseaseSeizureHyperchol esteremiaChronic bilateral low back pain, unspecified whether sciatica presentOther chronic painErectile dysfunction, unspecified erectile dysfunction typeUrinary incontinence, unspecified typeType 2 diabetes mellitus with diabetic polyneuropathy, unspecified whether long-term insulin useCurrent use of insulinPrimary hypertensionOpioid dependence in remissionHistory of cocaine abusePTSD (post-traumatic stress disorder) 3 Shaggy Rosado. 101 [facility] [place], [place], [place], [address], [place]. tel:[phone] [facility], [address] [facility], [place], [place], [address], [place] tel:[phone] [place] Encounter for nutritional assessmentAt risk for inadequate oral intakeDiabetic nutritional counseling completed 3 Pelon Tucker. [address] [place], [place], [id number], [place]. tel:[phone] [facility], [address] [facility] [facility] [facility], [place], [place], [address], [place] tel:[phone] [place] Dorsalgia, unspecified 3 Bhagavatula Uclaricejwala. 101 [facility] [place], [place], [place], [id number], [place]. tel:[phone] [facility], [address] [facility] [employer] [address] [facility], [place], [place], [address], [place] tel:[phone] [place] Encounter for genera l adult medical examination without abnormal findings 3 Robert Johnosn. [address] [place], [place], [id number], [place]. tel:[phone] [facility], [address], [place], [place], [address], [place] tel:[phone] [place] Type 2 diabetes mellitus with other skin complications 3 Bhagavatula Ujjwala. 101 [facility] [place], [address], [place]. tel:[phone] [facility], [address], [place], [place], [id number], [place] tel:[phone] [place] Other chest pain 3 Robert Johnson. [address] [place], [place], [address], [place]. tel:[phone] [facility], [address], [place], [place], [address], [place] tel:[phone] [place] Encounter for nutritional assessmentDiabetes education, encounter forExcessive carbohydrate intakeAt risk for inadequate oral intake 3 Pelon Tucker. 101 [facility] [place], [address], [place]. tel:[phone] [facility], [address], [place], [place], [id number], [place] tel:[phone] [place] Other chronic pain 3 Praneeth Cerna. 101 [facility], [place], [place], [address], [place]. tel:[phone] [facility], [address] [facility] [address] [facility], [place], [place], [address], [place] tel:[phone] [place] Encounter for rehabilitation evaluation 3 Praneeth Cerna. 101 [facility] [place], [address], [place]. tel:[phone] [facility], [address], [place], [place], [address], [place] tel:[phone] [place] Encounter for rehabilitation evaluation 3 Jamshid Fregoso. 101 [facility] [place], [address], [place]. tel:[phone] [facility], [address], [place], [place], [address], [place] tel:[phone] [place] FATOU (chief complaint) Schizophrenia, unspecified typeBipolar 1 disorderLong term current use of antipsychotic medicationHistory of cocaine abuseHypertension, unspecified typeHypercholesteremiaT ype 2 diabetes mellitus with diabetic polyneuropathy, with long-term current use of insulinLong term (current) use of insulinEssential tremorSeizureLong term (current) use of oral hypoglycemic drugsOpioid dependence, in remission 3 Robert Alex. [address] [place], [place], [id number], [place]. tel:[phone] [facility], [address], [place], [place], [address], [place] tel:[phone] [place] No Information 2 Danny Hodges. [address] [place], [place], [address], [place]. tel:[phone] [facility], [address] [facility], [place], [place], [address], [place] tel:[phone] [place] Muscle weakness (generalized) 2 Kirsten Kip. [address] [place], [address]. tel:[phone] [facility], [address], [place], [place], [address], [place] tel:[phone] [place] PHV (chief complaint) [facility] current use of antipsychotic medicationAspiration pneumonia, unspecified aspiration pneumonia type, unspecified laterality, unspecified part of lung 2 Os Crissy. [address] [place], [place], [address], [place]. tel:[phone] [facility], [address] [place] [address], [id number], [place] tel:[phone] [place] No Information 2 Danny Hodges. [address] [place], [place], [address], [place]. tel:[phone] [facility], [address] [facility], [place], [place], [address], [place] tel:[phone] [place] Muscle weakness (generalized) 2 Kirsten Kip. [address] [place], [address]. tel:[phone] [facility], [address] [facility] [address] [facility], [place], [place], [address], [place] tel:[phone] [place] Muscle weakness (generalized) 2 Kirsten Kip. [address] [place], [address]. tel:[phone] [facility], [address] [facility], [place], [place], [id number], [place] tel:[phone] [place] No Information 2 Os Crissy. [address] [place], [place], [address], [place]. tel:[phone] [facility], [address] [facility], [place], [place], [id number], [place] tel:[phone] [place] Hemiplegia and hemiparesis following unspecified cerebrovascular disease affecting right non-dominant sideMuscle weakness (generalized) 2 Kirsten Kip. [address] [place], [address]. tel:[phone] [facility], [address] [facility], [place], [place], [address], [place] tel:[phone] [place] Diabetes education, encounter forEncounter for nutritional assessmentExcessive carbohydrate intake 2 Normile Caitlin. [address] [place], [place], [address], [place]. tel:[phone] [facility], [address] 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 [address] [place], [place], [address], [place]. tel:[phone] [facility], [address] [facility], [place], [place], [address], [place] tel:[phone] [place] Extraction of tooth needed 2 Os Crissy. [address] [place], [place], [address], [place]. tel:[phone] [facility], [address] [facility] [address] [facility], [place], [place], [address], [place] tel:[phone] [place] Muscle weakness (generalized) 2 Kirsten Kip. [address] [place], [address]. tel:[phone] [facility], [address] [facility] [address] [facility], [place], [place], [id number], [place] tel:[phone] [place] Muscle weakness (generalized) 2 Kirsten Kip. [address], [place], [address]. tel:[phone] [facility], [address] [facility], [place], [place], [address], [place] tel:[phone] [place] Obstructive sleep apnea 2 Os Crissy. [address] [place], [place], [address], [place]. tel:[phone] [facility], [address] [facility] [address] [facility], [place], [place], [address], [place] tel:[phone] [place] Difficulty in walkin g, not elsewhere classified 2 Kirsten Kip. [address] [place], [address]. tel:[phone] [facility], [address] [facility], [place], [place], [address], [place] tel:[phone] [place] Other chronic pain 2 Danny Carroll. [address] [place], [address], [place]. tel:[phone] [facility], [address] [facility] [address] [facility], [place], [place], [address], [place] tel:[phone] [place] Type 2 diabetes mellitus with diabetic polyneuropathy, unspecified whether long-term insulin use 2 Os Crissy. [address] [place], [place], [address], [place]. tel:[phone] [facility], [address] [facility] [address] [facility], [place], [place], [address], [place] tel:[phone] [place] FUV (chief complaint) Edema, unspecified type 2 Os Crissy. [address] [place], [place], [address], [place]. tel:[phone] [facility], [address] [facility], [place], [place], [address], [place] tel:[phone] [place] PHV (chief complaint) Back pain, unspecified back location, unspecified back pain laterality, unspecified chronicity 2 Os Crissy. [address] [place], [place], [address], [place]. tel:[phone] [facility], [address] [facility], [place], [place], [address], [place] tel:[phone] [place] OV (chief complaint) Current use of insulinFall, initial encounterType 2 diabetes mellitus without complication, with long-term current use of insulin 2 Os Crissy. [address] [place], [place], [address], [place]. tel:[phone] [facility], [address] [facility], [place], [place], [address], [place] tel:[phone] [place] No Information 2 Os Crissy. [address] [place], [place], [address], [place]. tel:[phone] [facility], [address] [facility], [place], [place], [address], [place] tel:[phone] [place] Type 2 diabetes mellitus with diabetic polyneuropathy, unspecified whether long-term insulin use 2 Os Crissy. [address] [place], [place], [address], [place]. tel:[phone] [facility], [address] [facility], [place], [place], [address], [place] tel:[phone] [place] Encounter for nutritional assessmentAbnormal weight lossDiabetes education, encounter for 2 Normile Caitlin. [address] [place], [place], [address], [place]. 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 [address] [place], [place], [address], [place]. tel:[phone] [facility], [address], [place], [place], [address], [place] tel:[phone] [place] Encounter for rehabilitation evaluation 2 Kirsten Shin. [address], [place], [address]. tel:[phone] [facility], [address] [facility] [address] [facility], [place], [place], [address], [place] tel:[phone] [place] Encounter for rehabilitation evaluationDifficulty in walking, not elsewhere classifiedAlteration in performance of activities of daily living 2 Deirdre Garcia Zenobia Leonard. [address] [place], [place], [address]. tel:[phone] [facility], [address] [facility] [address] [facility], [place], [place], [address], [place] tel:[phone] [place] Encounter for genera l adult medical examination without abnormal findings 2 Jeffrey Robins. [address], [place], [place], [address], [place]. tel:[phone] [facility], [address] [facility] [address] [facility], [place], [place], [address], [place] tel:[phone] [place] No Information 2 Aria Chambers. [address] [place], [address], [place]. tel:[phone] Family History Family Member Type Diagnosis Age At Onset Mother Problem Diabetes mellitus Father Problem Heart disease Immunizations Vaccine Date Status Comments Zoster recombinant subunit administered S ource: New Immunization Record Flu-IIV4, p-free administered Source: Ot er Registry COVID-19 Pfizer Bivalent 12y+ administere d Source: Other Registry Fluzone Quad administered [facility] e: New Immunization Record Prevnar 13 administered Source: New Imm unization Record Fluzone Quad [id number] administered Note: Got influenza vaccine same day as COVID ; Source: Other Registry COVID-19 (Pfizer) administered Source: Ot [facility] Provider COVID-19 (Pfizer) administered Source: Ot her Provider Payers Payer name Insurance type Covered republican ID Keiko berman(abiel) [facility] [id number] [facility] [id number] [facility] [id number] [facility] 16 [id number] Social History Type Description Quantity Date Captured Comments Sex Male Smoking Status No Information Chief Complaint And Reason For Visit No Information Plan Of Treatment Date Type Action Status Referral Ordered: Referrals: Neurology. Location: [facility] Appointment date/timeframe: 10/26/2023 ordered Referral Ordered: Referrals: Cardiology. Location: [facility]. Consult Appointment date/timeframe: 02/28/2024 ordered Referral Ordered: Referrals: Pain Medicine. Consult ordered Referral Ordered: Referrals: Gastroenterology Appointment date/timeframe: 03/08/2023 ordered Referral Ordered: Referrals: [facility]- Podiatry Location: [facility] [place]. Evaluate and treat ordered Referral Ordered: Referrals: Podiatry Appointment date/timeframe: 11/29/2022 ordered Referral Ordered: Referrals: Credit Analyst Appointment date/timeframe: 01/18/2023 ordered Referral Referred To: [...] 2D image, spectral Doppler, color flow image ([id number]), Ordered on: Ordered Future Order: Radiology Order Po lysomnography, 4+ add'l params ([id number]), Ordered on: Ordered History Of Present Illness Encounter Date Complaint History Of Prese nt Illness cont Neuro diagnostic : polysommogram with cpap on 04/19/2022 at [facility] referred for non-restorative sleep. Found [...] pain and reported had injections monthly in [place]. He states he had injections of Toradol. Worse pain in his back and his spine does not support his upper body and he falls from side to side but no falls recently. Sister said issue with morphine and this was stopped. Moved from [place] in apr 2021 to be with son who has brain tumor. Ppt was never seen by a provider needed [place] pain management notes and did not offer medical management at this time. This note was written by an RN and it was just a call to the ppt. Awaiting notes from [place] pain management to go any further. Currently pain more controlled does not seem interested at this point. Neurology: 10/26/2023 Dr. Villalpando from [facility] went for tremor that has [...] anything in the last 5 years at [facility]. Referral placed awaiting for colonoscopy. Dexa: Has [...] given shingles vaccines today and due for otlj6Ew:Mind: AxOx4 can be forgetful mild cognitive impairment [...] and +s2Abd soft, non tender, non distended, +kaw0Kjgfjt gait Skin intactFeet well taken care for, nails trimmed, +pp, no edema, reduced microfilament test, +cmsCalm and cooperative Semi-Annual Patient was seen today for their Semiannual at the office accompanied by sister who is paid care trainer. Marquise is known for cancelling or not showing up for appts and had cancelled this appt multiple times and had to be reminded the importance of coming into appts so we can take care of him. Marquise enrolled at in 10/2021. Marquise lives with his sister/paid care trainer and son who his sister and himself take care of in a first floor appt in [place]. The main goal of marquise and his [...] have orthostasis. No falls in last month. [facility] 09/04- presented for frequent falls [...] neuro today. ADLs/services: Sister is paid care trainer and helps with meals, drives ppt to [...] this. Mental Health: Follows with Candace Hastings [facility] for schizoaffective disorder bipolar type and used [...] has his own teeth and follows with [facility] dental last seen 05/16/2023 when he had a filling done however this was not scanned in. Denies issues with chewing or swallowing. Had a prior tooth extraction in may 2022. Currently no issues will assess follow up at next semi unless issues. Ophthalmology: Follows with [facility] optometry seen 12/2022 ordered bifocals for presbyopia, age related cataracts bilateral not yet indicated for surgical intervention. Will need follow up at next semi. Cardiology: March 19, 2022 [facility] cardiology Dr. Banda for HTN had been on lisinopril and amlodipine in past that were stopped due to renal dysfunction ? blood clot in kidney per [facility]. Ppt had swelling at time [...] regional wall motion.Endocrinology: I actually saw [facility] as endo provider [facility] [place]r 2022 most recently was seen [...] no nystagmusMAE=strongLSCTA bilaterallyheart rate regular +s1 and +a9hgyqrwbxx hand tremors moderate at rest and when [...] accompanied by sister who is paid care trainer. We have made multiple attempts to get ppt to come into site and call but no one picked up. Discussed with paid care trainer that she needs to be available by phone. She checked her phone to make sure there was nothing wrong. She reported she never got any calls. We verified her number along with ppt. Ppt FATOU was due a week earlier but never showed up multiple times and then there was two provider changes. This is my first time meeting [facility] as new pcp. Ppt enrolled at in 10/2021. Ppt lives with his sister/paid care trainer and son in an first floor appt in [place]. HHN will be getting VS as not done today due to equipment errorNo recent hospitalization, SNFs or falls per ppt, collective and [facility] review in the last year.Complaints/concerns: No real concerns. Sister feels ppt is a little down however ppt reports he just wishes he was living in [place] and that is his goal. ADLs/services: Sister is paid care trainer and helps with meals, drives ppt to [...] has his own teeth and follows with [facility] dental last seen 05/16/2023 when he had a filling done. Denies issues with chewing or swallowing.Ophthalmology: Follows with [facility] optometry seen 12/2022 ordered bifocals for presbyopia, age related cataracts bilateral not yet indicated for surgical intervention. Cardiology: March 19, 2022 [facility] cardiology Dr. Banda for HTN had been [...] actually saw ppt as endo provider through [facility] [place]r 2022 most recently was seen [...] do at end of month. [address] [facility] Urine microalbumin neg, lipid panel 108/217/33/32, alc 8%, cr 1.1 and gfr 81. Olvin wnlNlaisha diagnostic: polysommogram with cpap on 04/19/2022 at [facility] referred for non-restorative sleep. Found [...] pain and reported had injections monthly in [place]. He states he had injections of Toradol. Worse pain in his back and his spine does not support his upper body and he falls from side to side but no falls recently. Sister said issue with morphine and this was stopped. Moved from [place] in apr 2021 to be with son who has brain tumor. Ppt was never seen by a provider needed [place] pain management notes and did not offer medical management at this time. This note was written by an RN and it was just a call to the ppt. Awaiting notes from [place] pain management to go any further. Colonoscopy: ppt is unsure. I do not see anything in the last 5 years at [facility]. Will try to find if he has [...] for shingles vaccines, tdap, and flu in [id number]:Mind: AxOx4 can be forgetful mild cognitive impairment [...] sometimes praveena related to [place] age [id number] intact Pt has own teeth with no concerns Moist mucous membranesNo enlarged cervical lymph nodes, thyroid inspected with no nodules palpatedBilateral hand tremor restingLSCTA bilaterally Heart regular rate +s1 and +s2Abd soft, non tender, non distended, +vsu0Yqzdwc gait Skin intactFeet well taken care for, [...] - appt pending Prescriber - Candace Hastings ([facility])No questions or concerns he is doing so much better reports a family memberHX OF COCCAINE/OPIOID ABUSEDenies current useHTNMetoprololBP 104/70 todayLabs later DM w/ [id number] - 7% (04/2022)Foot exam?Metformin, lantus, HumalogDoes not [...] for a PHV. Pt was brought to [facility] on 01/25 for back pain. He received [...] his 30s when he was living in [place]. He reported his ex- determined he had [...] is a good support along with his latter-day. -Currently denies any type of hallucinations or delusions. Denies wanting to hurt himself or anyone else. Denies SI. Both he and his sister feel he is the best he has been and in a stable place. Reports a little depressed as he wants to move to [place] but comes and goes. Follows with Candace Hastings [facility] for schizoaffective disorder bipolar type and used [...] prnSW is working on getting ppt into [facility] therapyContinue to monitor Related to Schizoaffective disorder, [...] a good support and also Jehovah witness latter-day. No longer doing drugs for some time [...] the same as well as sister (in [place])denies any current useusing non opioid alternatives for chronic pain with sucess like gabapentin and cymbalta Related to Opioid dependence in remission no seizure activityN a wnl at [facility] depokote 375 bid with valporic [...] saw ppt a s endo provider through [facility] [place]r 2022 most recently was seen [...] diabetes mellitus with diabetic polyneuropathy, unspecified whether long-term insulin use wants cpr but dni wh ich doesn't make sense but does not want to change anything. Ppt is his own person and educated.lives with sister who is hcp proxy and paid care givergoal [place] if [...] po lysommogram with cpap on 04/19/2022 at [facility] referred for non-restorative sleep. Found [...] notes from pts previous pain clinic in [facility].Pt does not want any aggressive measures nor wanting any narcotics d/t past hx of addition. Currently on cymbalta, gabapentin and voltaren, tylenol and recently went up on gabapentin. Reports pain controlled. Since pain clinic won't see him without [place] notes and unable to obtain and ppt reports controlled willl d/c referral ppt is okay with this. Related to Chronic bilateral low back pain without sciatica Chronic back pain r/ t multiple surgeries per pt. Pt has pain clinic referral though pain clinic is waiting for past notes from pts previous pain clinic in [facility].Pt does not want any aggressive measures nor wanting any narcotics d/t past hx of addition. Currently on cymbalta, gabapentin and voltaren, tylenol and recently went up on gabapentin. Reports pain controlled. Since pain clinic won't see him without [place] notes and unable to obtain and ppt [...] placed but unable to get notes from [place] and wont' see him. Reports currently pain controlled and does not need referral. Related to Cervical disc disease 10/26/[address] Sanjay finley from [facility] due to ongoing tremors affecting quality [...] gait and speech at times. However admitted [facility] 09/04-09/08 for syncope found to [...] plan to do echo. Treadmill standard with [facility] on 09/2008 due to chest pain found [...] can result in this had admit to [facility] in aug for syncope, falls, dizziness found [...] pain and reported had injections monthly in [place]. He states he had injections of Toradol. Worse pain in his back and his spine does not support his upper body and he falls from side to side but no falls recently until today. Sister said issue with morphine and this was stopped. Moved from [place] in apr 2021 to be with son who has brain tumor. Ppt was never seen by a provider needed [place] pain management notes and did not offer [...] po lysommogram with cpap on 04/19/2022 at [facility] referred for non-restorative sleep. Found [...] pain mangement but didn't have records from [facility] so wouldn't see him per pptneuro [...] opioids ie morphineppt enodrses the same (in [place])denies any current usewill re-eval for acute pain/surgical [...] saw ppt a s endo provider through [facility] [place] 2022 most recently was seen [...] do at end of month. [address] [facility] Urine microalbumin neg, lipid panel 108/217/33/32, alc 8%, cr 1.1 and gfr 81. Lytes wnlgoal alc less than 7% and discussed microvascular and macrovascular complications of uncontrolled dm Related to Type 2 diabetes mellitus with diabetic polyneuropathy, unspecified whether long-term insulin use has seen urology in past [...] notes from pts previous pain clinic in [facility].Pt does not want any aggressive [...] notes from pts previous pain clinic in [facility].Pt does not want any aggressive [...] pain and reported had injections monthly in [place]. He states he had injections of Toradol. Worse pain in his back and his spine does not support his upper body and he falls from side to side but no falls recently. Sister said issue with morphine and this was stopped. Moved from [place] in apr 2021 to be with son who has brain tumor. Ppt was never seen by a provider needed [place] pain management notes and did not offer [...] po lysommogram with cpap on 04/19/2022 at [facility] referred for non-restorative sleep. Found [...] care givergoal [place] if not due for oneno longer needs to see endo I can manage thatcontinue to follow with pysch Related to Healthcare maintenance bipolar well control led without symptoms just some mild sadness as he wants to move to [place] but reports he is happy most days [...] his 30s when he was living in [place]. He reported his ex- determined he had [...] depressed as he wants to move to [place] but comes and goes. -Continue: seroquel 100mg [...] dependance on opioidsppt enodrses the same (in [place])denies any current usewill re-eval for acute pain/surgical [...] exam benign except for decreased sensationref to [id number] and labs todayeval ongoing Related to Type 2 diabetes mellitus with diabetic polyneuropathy, with long-term current use of insulin last a1c 7.00using C GMsugars sometimes labile - may be d/t antipsychotic use continues on humalog, lantus, metforminfoot exam benign except for decreased sensationref to pgsvuzwmg8c and labs todayeval ongoing Related to [facility] (current) use of insulin continues on STATIN [...] seroq uel, trazodone, ziprasidone 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 He did not receive the medication nor notify [facility] until Tuesday that the pharmacy could not fill as they were out of stock . Ppt did tell SE he would be going back to [facility] for symptoms on 06/28/22 at 4:15p. Ppt [...] type, unspecified laterality, unspecified part of lung [facility] 05/29 Admitted for sepsis secondary to likely aspiration pneumonia in the setting of extrapyramidal symptoms from Antipsychotics. He was given ceftriaxone, doxycycline sepsis resolved and was discharged home on 7 more days of augmentin.Medication changes:Antipsychotics have been prescribed by Jeremias Vizcarra's office-Seroquel 100mg at bedtime-Depakote DR 375mg BID Related to [facility] current use of antipsychotic medication Pt reports [...] for medical records from pain clinic in [place] Related to Opioid dependence, in remission Chronic back pain r/ t multiple surgeries per pt. Pt has pain clinic referral though pain clinic is waiting for past notes from pts previous pain clinic in [facility].Pt does not want any aggressive [...] prescribed and managed by psych. Related to [facility] current use of antipsychotic medication Pt at [...] and made the following recommendations -Changed: insulin [id number]> 17unitsSTARTED lantus 24units in AMCONTINUE metformin 500mg BIDNeuropathy reported in paul feet; numbness and tingling.Abnormal monofilment exam, loss of protective sensation. Diabetic foot exam education. -Continue gabapentin-Education provided on new medications and daily feet checks. Related to Type 2 diabetes mellitus with diabetic polyneuropathy, unspecified whether long-term insulin use No symptoms reported at this [...] his 30s when he was living in [place]. He reported his ex- determined he had [...] and made the following recommendations -Changed: insulin [id number]> 17unitsSTARTED lantus 24units in AMCONTINUE metformin 500mg [...] diabetes mellitus with diabetic polyneuropathy, unspecified whether long-term insulin use Discussed during las t visit [...] a PHV . Pt was brought to [facility] on 01/25 for back pain. He received 3 injections (1 in each arm and one in his left leg per sister). Today pt continues to complain of back pain. Pt had been going to pain clinic when he was living in [place] and reported relief w/ injections.Plan: Discussed trying [...] Current use of insulin History of T2DM [facility] e age 34 being treated w/ [...] diabetes mellitus with diabetic polyneuropathy, unspecified whether oil heaterman insulin use Denied cocaine abuse early in our conversation though then discussed cocaine use for a suicide attempt. -Has attempted suicide 2x in the past: cutting and cocaine overdose. Identifies his sister is a good support. Plan: drug screen Related to History of cocaine abuse History of T2DM [facility] e age 34 being treated w/ [...] diabetes mellitus with diabetic polyneuropathy, unspecified whether long-term insulin use I have deterieratio n of [...] his 30s when he was living in [place]. He reported his ex- determined he had [...] his 30s when he was living in [place]. He reported his ex- determined he had [...] valporic acid level, primidone level Related to [facility] current use of antipsychotic medication Pt reports I had a seizure along time ago . No clarity on when this event took place. He is on depakote. Related to Seizure BP 114/60-Currently taking metoprolol and lisinopril Related to Hypertension, unspecified type Per preenrollment re cords. Lipid panel ordered.-Currently taking [id number] daily Related to Hypercholesteremia History of T2DM [...]
--- OUTSIDE RECORDS SUMMARY | 2025-03-28 15:48 | XMS_ITS | Data Portability ---
Author Organization [place] [facility] [address] [facility] Address [address] [facility] [address] [place] [address] Care Team Providers Care Paper Sales Representative Name Role Phone MOLLY DRIVER Primary Care Provider [phone] MOLLY DRIVER Referring Provider [phone] Assessment Encounter Date Assessment Date Assessment LastModified [...] is anticipated once the fracture has healed [email or web address] Not available 03/12/2024 17:42:48 04/05/2024 04/05/2024 Impression: [...] MD, [address], [place], [address], 4 14:22:52 Procedures None recorded. Surgeries None recorded. Imaging XR, ankle, 3 or more view 2023 024 [email or web address] [facility], [address], [place], [address], Ph [phone] 4 15:14:59 XR, tibia + fibula, 2 view 2023 024 [email or web address] [facility], [address], [place], [address], Ph [phone] 4 15:14:59 XR, ankle, 3 or more view 2023 024 [email or web address] [facility], [address], [place], [address], Ph [phone] 4 10:04:21 XR, tibia + fibula, 2 view 2023 024 [email or web address] [facility], [address], [place], [address], Ph [phone] 4 10:04:04 XR, tibia + fibula, 2 view 2023 024 [email or web address] Sos [facility], [address] [facility] [address], [place], [address], 4 16:26:57 Medication Orders None recorded. Patient [...] No observ ation record ed. eric Krishnan [facility] [address], [place], [address], 03/12/2024 14:23:30 04/05/20 24 XR, tibia + fibul a, 2 view No observ ation record ed. jose antonio [facility] [address] [place] [address] [address], [place], [address], Ph [phone] 04/05/2024 10:04:04 04/05/20 24 XR, ankle , 3 or more view No observ ation record ed. jose antonio [address], [place], [address], Ph [phone] 04/05/2024 10:04:20 06/11/20 24 XR, tibia + fibul a, 2 view No observ ation record ed. savannah [address], [place], [address], Ph [phone] 06/11/2024 15:14:53 06/11/20 24 XR, ankle , 3 or more view No observ ation record ed. savannah [address], [place], [address], Ph [phone] 06/11/2024 15:14:42 Result Notes None recorded. Medical [...] Updated DateTime 03/12/2024 172.72 cm 24.5 kg/m2 73851.37 g Rodney Bourne [facility] 03/12/2024 14:25:49 Date Recorded Body height Body mass index (BMI) Body weight Provider Name and Address Organization Details Last Updated DateTime 04/05/2024 172.72 cm 24.5 kg/m2 44999.37 g Lawrence Jackson [facility] 04/05/2024 09:39:36 Social History Question Answer Notes LastModified by Organizat ion Details LastModified Time Tobacco Smoking Status Former Smoker Rodney [email or web address], [facility] 03/12/2024 14:26:10 What Was The Date Of Your Most Recent Tobacco Screening? 04/05/2024 [email or web address] Information not available 04/05/2024 Sex: Unknown Functional Status None recorded. Mental Status None recorded. Family History Nothing Reported. Medical History No medical history recorded. Past Encounters Encounter ID Performer Location Encounter Start Date Encounter Closed Date Diagnosis/Indication Diagnosis SNOMED-CT Code Diagnosis ICD10 Code Diagnosis Note [id number] Aaron Guerra MD [facility] [address] [place] [address] 03/12/2024 14:01:14 03/12/2024 15:40:30 Pain in right lower limb 033125935 M79.604 Fracture of fibula 79476 007 S82.861A Closed fra cture of medial malleolus of right distal tibia [id number] 9980625 S82.54XA [id number] Deyvi Vidal MD [facility] [address] [place], [place] [address] [place] [address] 04/05/2024 08:33:45 04/05/2024 14:02:26 Pain in right lower limb 132310605 M79.604 Pain of ri ght ankle joint 0807811564 9967363 M25.571 Closed fra cture of shaft of fibula 26253255 S82.431A Clinical and radiograph ic findings discussed [...] up in 2 weeks for reevaluati on. [id number] Deyvi Vidal MD [facility] [address] [place] [address] 06/11/2024 14:01:40 06/11/2024 16:39:20 Pain in right lower limb 889681602 M79.604 X-rays demonstrat e good overall bone alignment and progressiv e healing. Soft tissue are normal. There is otherwise no evidence of any new fracture, dislocatio n or osseous lesion. Pain of ri ght ankle joint [id number] 2315570 M25.571 X-rays demonstrat e good overall bone alignment and progressiv e healing. Soft tissue are normal. There is otherwise no evidence of any new fracture, dislocatio n or osseous lesion. Closed fra cture of shaft of fibula 94889355 S82.431A Clinical and radiograph ic findings discussed at length with the patient. All questions were answered. I have advised the patient to initiate use of ice and NSAIDS (if tolerated) to reduce pain and swelling as needed and continue with activity modificati on. Patient ordered velocity ankle brace at today's [facility] that is medically necessary for ambulation and [...] (MEDICARE REPLACEMENT/A DVANTAGE - HMO) Dylan Navarro [id number] Dylan Navarro Notes Date Note Type Note [...] to work. Patient states he went to [facility] urgent care the day of his fall in [facility] and xrays and said he had a [...] of the condition. The patient lives on [address], [place] off [facility], near [facility]. Aaron Guerra MD [address], [place], [address], [facility] 03/12/2024 17:46:08 04/05/2024 text/html Patient presents to the clinic for right ankle new problem appointment. Patient reports current pain is severe. Patient states that 3 weeks ago he was in his kitchen, twisted around to talk to someone, and injured his right calf and ankle. Patient presents PWB with a short splint and walker. Deyvi Vidal MD [address], [place], [address], [facility] 04/05/2024 10:13:02 06/11/2024 text/html Patient presents to the clinic for right ankle follow up appointment. Patient reports current pain is mild. Patient denies any new falls or traumas since last appointment. Patient denies any calf tenderness. ZOILA ARAMBULA [address], [place], [address], [facility] 06/11/2024 15:15:35
[2025-03-28 17:01] LABS: Microalbum/Creatinine Ratio Ur 51.1 ug/mg cr (<30)
== END 2025-03-28 15:46 | disposition home or self-care (01) ==
LOC: HO.LNP 15:45
PROVIDERS: Visit Provider Internal Medicine
DX: E11.65 Type 2 diabetes mellitus with hyperglycemia (principal); M84.371D Stress fracture, right ankle, subsequent encounter for fracture with routine healing; E78.00 Pure hypercholesterolemia, unspecified; F20.1 Disorganized schizophrenia; G25.2 Other specified forms of tremor; I47.19 Other supraventricular tachycardia; N40.1 Benign prostatic hyperplasia with lower urinary tract symptoms; R55 Syncope and collapse
CPT/HCPCS: 82043; 82570

== ENCOUNTER 2025-05-09 08:27 | Outpatient (REF) | payer MEDICARE, MEDICAID, SELFPAY ==
--- OUTSIDE RECORDS SUMMARY | 2024-03-05 05:14 | XMS_ITS | Continuity of Care Document ---
Author Organization [facility] Address [address] [address] Phone Care Team Providers Care Lead Network Architect Name Role Phone Jer FREY, Ujjwala Unavailable [...] 08/31/2023 appt with psych amrit hastings from [facility] Lantus U-100 Insulin 100 unit/mL subcutaneous [...] Has been filled by Psych so far TouristR Bebe 2 [place] use to read blood sugar QID - Active Advance Directives Directive Yes / No Effective Date File Name No Information Encounters Encounter Description Practice Location Reason(s) For Visit Diagnoses Date Provider [facility], 1 [facility] [address], [place], [place], [id number], [place] tel:[phone] [place] No Information Shreyas- 0-202 4 Jer Fletcherjjjanea. [address] [place], [place], [id number], [place]. tel:[phone] [facility], [address], [place], [place], [id number], [place] tel:[phone] [place] No Information January-2 4-202 4 Coon Ashlee. [address] [place], [place], [id number], [place]. tel:[phone] [facility], [address] [facility], [place], [place], [id number], [place] tel:[phone] [place] No Information January-2 3-202 4 Coon Ashlee. [address] [place], [place], [id number], [place]. tel:[phone] [facility], [address], [place], [place], [id number], [place] tel:[phone] [place] No Information Dec-3 0-202 4 Coon Ashlee. [address] [place], [place], [id number], [place]. tel:[phone] [facility], [facility], [place], [place], [id number], [place] tel:[phone] [place] No Information Dec-2 2-202 4 Coon Ashlee. [address] [place], [place], [id number], [place]. tel:[phone] [facility], [address], [place], [place], [id number], [place] tel:[phone] [place] No Information Dec-1 9-202 4 Coon Ashlee. [address] [place], [place], [id number], [place]. tel:[phone] [facility], [address], [place], [place], [id number], [place] tel:[phone] [place] No Information 4 Coon Ashlee. [address] [place], [id number], [place]. tel:[phone] [facility], [facility], [place], [place], [id number], [place] tel:[phone] [place] No Information 4 Pitsiladis Adelina. [address] [facility] [place], [id number], [place]. tel:[phone] [facility], [address] [address], [place], [place], [id number], [place] tel:[phone] [place] No Information 4 Coon Ashlee. [address] [facility] [place], [id number], [place]. tel:[phone] [facility], [facility], [place], [place], [id number], [place] tel:[phone] [place] Encounter for nutritional assessmentDiabetic nutritional counseling completed 4 Normile Caitlin. [address] [facility] [place], [address], [place]. tel:[phone] [facility], [address] [address], [place], [place], [id number], [place] tel:[phone] [place] No Information 4 Coon Ashlee. [address] [facility] [place], [address], [place]. tel:[phone] [facility], [address] [address], [place], [place], [address], [place] tel:[phone] [place] Muscle weakness (generalized) b0 4 Brianna Leonarda. [address] [facility] [place], [address], [place]. tel:[phone] [facility], [address] [facility] [address], [place], [place], [id number], [place] tel:[phone] [place] Difficulty in walkin g, not elsewhere classified 4 [address] Caraballo. [address] [facility] [place], [id number], [place]. tel:[phone] [facility], [facility], [place], [place], [id number], [place] tel:[phone] [place] Muscle weakness (generalized) 4 Brianna Brower. [address] [facility] [place], [address], [place]. tel:[phone] [facility], [facility], [place], [place], [id number], [place] tel:[phone] [place] Encounter for rehabilitation evaluation 4 Brianna Brower. [address], [place], [place], [address], [place]. tel:[phone] [facility], [address] [facility] [address] [facility], [place], [place], [id number], [place] tel:[phone] [place] Semi-Annua l (chief complaint) cont (chief complaint) Type 2 diabetes mellitus with diabetic polyneuropathy, unspecified whether mcfp insulin useCurrent use of insulinSeizureOpioid dependence in remissionHistory of cocaine abusePTSD (post-traumatic stress disorder)Schizoaffectiv e disorder, bipolar typeHypercholesteremiaH ypertension, unspecified typeOrthostatic hypotensionEssential tremorCervical disc diseaseChronic bilateral low back pain without sciaticaOther chronic painObstructive sleep apneaDysautonomiaSelect Medical [facility] care maintenance 4 Shaggy Rosado. [address] [place], [place], [id number], [place]. tel:[phone] [facility], [address] [facility] [address] [facility], [place], [place], [address], [place] tel:[phone] [place] No Information 4 Coonbridgett Rosado. [address] [place], [place], [address], [place]. tel:[phone] [facility], [address], [place], [place], [address], [place] tel:[phone] [place] No Information 4 Jake Hoffman. [address] [place], [place], [id number], [place]. tel:[phone] [facility], [address], [place], [place], [id number], [place] tel:[phone] [place] Difficulty in walkin g, not elsewhere classified [address] Caraballo. [address] [place], [place], [address], [place]. tel:[phone] [facility], [address], [place], [place], [id number], [place] tel:[phone] [place] Difficulty in walkin g, not elsewhere classified [address] Caraballo. [address] [place], [place], [id number], [place]. tel:[phone] [facility], [address], [place], [place], [address], [place] tel:[phone] [place] Encounter for rehabilitation evaluationDifficulty in walking, not elsewhere classified [address] Caraballo. [address], [place], [place], [address], [place]. tel:[phone] [facility], [address], [place], [place], [address], [place] tel:[phone] [place] No Information 3 Shaggy Rosado. [address] [place], [place], [address], [place]. tel:[phone] [facility], [address], [place], [place], [address], [place] tel:[phone] [place] Muscle weakness (generalized) Aug- [address] Caraballo. [address] [place], [place], [address], [place]. tel:[phone] [facility], [address], [place], [place], [address], [place] tel:[phone] [place] Other abnormalities of gait and mobility [address] Caraballo. [address], [place], [place], [address], [place]. tel:[phone] [facility], [address], [place], [place], [id number], [place] tel:[phone] [place] No Information 3 Shaggy Rosado. [address] [place], [place], [address], [place]. tel:[phone] [facility], [address], [place], [place], [id number], [place] tel:[phone] [place] No Information 3 Shaggy Rosado. [address] [place], [place], [address], [place]. tel:[phone] [facility], [address], [place], [place], [address], [place] tel:[phone] [place] Difficulty in walkin g, not elsewhere classified [address] Carab[address] [place], [place], [address], [place]. tel:[phone] [facility], [address], [place], [place], [address], [place] tel:[phone] [place] Difficulty in walkin g, not elsewhere classified [address] Carab[address] [place], [place], [address], [place]. tel:[phone] [facility], [address] [facility], [place], [place], [address], [place] tel:[phone] [place] Acute Visit (chief complaint) Essential tremorObstructive sleep apneaOrthostatic hypotensionOther chronic pain 3 Shaggy Rosado. [address] [place], [place], [id number], [place]. tel:[phone] [facility], 1 [facility], [place], [place], [address], [place] tel:[phone] [place] Difficulty in walkin g, not elsewhere classified [address] Caraballo[address] [place], [place], [id number], [place]. tel:[phone] [facility], 1 [facility], [place], [place], [address], [place] tel:[phone] [place] Difficulty in walkin g, not elsewhere classified [address] Rashmi[address] [place], [place], [id number], [place]. tel:[phone] [facility], 1 [facility], [place], [place], [address], [place] tel:[phone] [place] Encounter for rehabilitation evaluation 3 Court Rashmi. [address] [place], [place], [id number], [place]. tel:[phone] [facility], 1 [facility], [place], [place], [address], [place] tel:[phone] [place] No Information 3 Danny Hodges. [address] [place], [place], [id number], [place]. tel:[phone] [facility], [facility], [place], [place], [address], [place] tel:[phone] [place] Semi-Annua l (chief complaint) Schizophrenia, unspecified typeBipolar 1 disorderHealthcare maintenanceObstructive sleep apneaEssential tremorChronic pain syndromeCervical disc diseaseSeizureHyperchol esteremiaChronic bilateral low back pain, unspecified whether sciatica presentOther chronic painErectile dysfunction, unspecified erectile dysfunction typeUrinary incontinence, unspecified typeType 2 diabetes mellitus with diabetic polyneuropathy, unspecified whether termite exterminator insulin useCurrent use of insulinPrimary hypertensionOpioid dependence in remissionHistory of cocaine abusePTSD (post-traumatic stress disorder) 3 Shaggy Rosado. [address] [facility] [address], [place], [place], [address], [place]. tel:[phone] [facility], [address] [facility] [address], [place], [place], [address], [place] tel:[phone] [place] Encounter for nutritional assessmentAt risk for inadequate oral intakeDiabetic nutritional counseling completed 3 Pelon Tucker. [address] [place], [place], [id number], [place]. tel:[phone] [facility], [address] [facility] [address], [place], [place], [address], [place] tel:[phone] [place] Dorsalgia, unspecified 3 Bhagavatula Uclaricejwala. [address] [facility] [place], [place], [place], [address], [place]. tel:[phone] [facility], 1 [facility], [place], [place], [address], [place] tel:[phone] [place] Encounter for genera l adult medical examination without abnormal findings 3 Robert Johnson. [address] [place], [place], [address], [place]. tel:[phone] [facility], [address] [facility], [place], [place], [address], [place] tel:[phone] [place] Type 2 diabetes mellitus with other skin complications 3 Bhagavatula Ujjwala. [address] [facility] [place], [id number], [place]. tel:[phone] [facility], [address], [place], [place], [address], [place] tel:[phone] [place] Other chest pain 3 Robert Johnson. [address] [place], [place], [address], [place]. tel:[phone] [facility], [address] [facility] [address], [place], [place], [address], [place] tel:[phone] [place] Encounter for nutritional assessmentDiabetes education, encounter forExcessive carbohydrate intakeAt risk for inadequate oral intake 3 Pelon Tucker. [address] [facility] [place], [address], [place]. tel:[phone] [facility], [address] [facility], [place], [place], [id number], [place] tel:[phone] [place] Other chronic pain 3 Praneeth Cerna. [address] [facility] [address], [place], [place], [id number], [place]. tel:[phone] [facility], [address] [facility] [address] [facility], [place], [place], [id number], [place] tel:[phone] [place] Encounter for rehabilitation evaluation 3 Praneeth Cerna. [address] [facility] [place], [address], [place]. tel:[phone] [facility], [address], [place], [place], [address], [place] tel:[phone] [place] Encounter for rehabilitation evaluation 3 Jamshid Fregoso. [address] [facility] [place], [address], [place]. tel:[phone] [facility], [address], [place], [place], [address], [place] tel:[phone] [place] FATOU (chief complaint) Schizophrenia, unspecified typeBipolar 1 disorderLong term current use of antipsychotic medicationHistory of cocaine abuseHypertension, unspecified typeHypercholesteremiaT ype 2 diabetes mellitus with diabetic polyneuropathy, with long-term current use of insulinLong term (current) use of insulinEssential tremorSeizureLong term (current) use of oral hypoglycemic drugsOpioid dependence, in remission 3 Robert Alex. [address] [place], [place], [id number], [place]. tel:[phone] [facility], [address] [facility], [place], [place], [address], [place] tel:[phone] [place] No Information 2 Danny Hodges. [address] [place], [place], [id number], [place]. tel:[phone] [facility], [address] [facility] [address], [place], [place], [id number], [place] tel:[phone] [place] Muscle weakness (generalized) 2 Kirsten Kip. [address] [place], [address]. tel:[phone] [facility], [address], [place], [place], [address], [place] tel:[phone] [place] PHV (chief complaint) alf current use of antipsychotic medicationAspiration pneumonia, unspecified aspiration pneumonia type, unspecified laterality, unspecified part of lung 2 Os Crissy. [address] [place], [place], [id number], [place]. tel:[phone] [facility], [address] [facility] [address] [place] [address], [id number], [place] tel:[phone] [place] No Information 2 Danny Hodges. [address] [place], [place], [id number], [place]. tel:[phone] [facility], [address] [facility] [address], [place], [place], [address], [place] tel:[phone] [place] Muscle weakness (generalized) 2 Kirsten Kip. [address] [place], [address]. tel:[phone] [facility], [address] [facility] [address] [facility], [place], [place], [address], [place] tel:[phone] [place] Muscle weakness (generalized) 2 Kirsten Kip. [address] [place], [address]. tel:[phone] [facility], 1 [facility], [place], [place], [address], [place] tel:[phone] [place] No Information 2 Os Crissy. [address] [place], [place], [address], [place]. tel:[phone] [facility], 1 [facility], [place], [place], [address], [place] tel:[phone] [place] Hemiplegia and hemiparesis following unspecified cerebrovascular disease affecting right non-dominant sideMuscle weakness (generalized) 2 Kirsten Kip. [address] [place], [address]. tel:[phone] [facility], 1 [facility], [place], [place], [address], [place] tel:[phone] [place] Diabetes education, encounter forEncounter for nutritional assessmentExcessive carbohydrate intake 2 Normile Caitlin. [address] [place], [place], [address], [place]. tel:[phone] [facility], 1 [facility], [place], [place], [address], [place] tel:[phone] [place] FATOU (chief complaint) Hypertension, unspecified typeHypercholesteremiaC urrent use of insulinType 2 diabetes mellitus with diabetic polyneuropathy, unspecified whether mcfp insulin useSchizophrenia, unspecified typeBipolar 1 disorderPTSD (post-traumatic stress disorder)alf current use of antipsychotic medicationBack pain, unspecified back location, unspecified back pain laterality, unspecified chronicitySeizureEssent ial tremorOpioid dependence, in remission 2 Os Crissy. [address] [place], [place], [address], [place]. tel:[phone] [facility], 1 [facility], [place], [place], [address], [place] tel:[phone] [place] Extraction of tooth needed 2 Os Crissy. [address] [place], [place], [address], [place]. tel:[phone] [facility], [address] [facility] [address], [place], [place], [address], [place] tel:[phone] [place] Muscle weakness (generalized) 2 Kirsten Kip. [address] [place], [address]. tel:[phone] [facility], [address] [facility] [address] [facility], [place], [place], [id number], [place] tel:[phone] [place] Muscle weakness (generalized) 2 Kirsten Kip. [address], [place], [address]. tel:[phone] [facility], 1 [facility], [place], [place], [id number], [place] tel:[phone] [place] Obstructive sleep apnea 2 Os Crissy. [address] [place], [place], [address], [place]. tel:[phone] [facility], [address] [facility] [address] [facility], [place], [place], [address], [place] tel:[phone] [place] Difficulty in walkin g, not elsewhere classified 2 Kirsten Kip. [address] [place], [address]. tel:[phone] [facility], [address] [facility] [address], [place], [place], [address], [place] tel:[phone] [place] Other chronic pain 2 Danny Carroll. [address] [place], [place], [address], [place]. 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 [address] [place], [place], [address], [place]. tel:[phone] [facility], [address] [facility] [address], [place], [place], [address], [place] tel:[phone] [place] FUV (chief complaint) Edema, unspecified type 2 Os Crissy. [address] [place], [place], [address], [place]. tel:[phone] [facility], 1 [facility], [place], [place], [address], [place] tel:[phone] [place] PHV (chief complaint) Back pain, unspecified back location, unspecified back pain laterality, unspecified chronicity 2 Os Crissy. [address] [place], [place], [address], [place]. tel:[phone] [facility], [address] [facility] [address], [place], [place], [address], [place] tel:[phone] [place] OV (chief complaint) Current use of insulinFall, initial encounterType 2 diabetes mellitus without complication, with long-term current use of insulin 2 Os Crissy. [address] [place], [place], [address], [place]. tel:[phone] [facility], [address] [facility] [address], [place], [place], [address], [place] tel:[phone] [place] No Information 2 Os Crissy. [address] [place], [place], [address], [place]. 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 [address] [place], [place], [address], [place]. tel:[phone] [facility], 1 [facility] [facility], [place], [place], [address], [place] tel:[phone] [place] Encounter for nutritional assessmentAbnormal weight lossDiabetes education, encounter for 2 Normile Caitlin. [address] [place], [place], [address], [place]. tel:[phone] [facility], [facility] [address], [place], [place], [address], [place] tel:[phone] [place] PEE (chief complaint) Hypertension, unspecified typeHypercholesteremiaC urrent use of insulinErectile dysfunction, unspecified erectile dysfunction typeSchizophrenia, unspecified typeBipolar 1 disorderPTSD (post-traumatic stress disorder)alf current use of antipsychotic medicationSeizureCervic al disc diseaseChronic pain syndromeEssential tremorEncounter for general adult medical examination without abnormal findingsOpioid dependence, in remissionType 2 diabetes mellitus with diabetic polyneuropathy, unspecified whether termite exterminator insulin useHistory of cocaine abuse 2 Os Crissy. [address] [place], [place], [address], [place]. tel:[phone] [facility], [facility], [place], [place], [address], [place] tel:[phone] [place] Encounter for rehabilitation evaluation 2 Kirsten Shin. [address], [place], [address]. tel:[phone] [facility], [facility], [place], [place], [id number], [place] tel:[phone] [place] Encounter for rehabilitation evaluationDifficulty in walking, not elsewhere classifiedAlteration in performance of activities of daily living 2 Deirdre Garcia Zenobia Leonard. [address] [place], [place], [address]. tel:[phone] [facility], [facility] [address], [place], [place], [address], [place] tel:[phone] [place] Encounter for genera l adult medical examination without abnormal findings 2 Jeffrey Robins. [address], [place], [place], [address], [place]. tel:[phone] [facility], [facility] [address], [place], [place], [address], [place] tel:[phone] [place] No Information 2 Aria Chambers. [address] [place], [address], [place]. tel:[phone] Family History Family Member Type Diagnosis Age At Onset Mother Problem Diabetes mellitus Father Problem Heart disease Immunizations Vaccine Date Status Comments Zoster recombinant subunit administered S ource: New Immunization Record Flu-IIV4, p-free administered Source: Ot er Registry COVID-19 Pfizer Bivalent 12y+ administere d Source: Other Registry Fluzone Quad administered [facility] e: New Immunization Record Prevnar 13 administered Source: New Imm unization Record Fluzone Quad [id number] administered Note: Got influenza vaccine same day as COVID ; Source: Other Registry COVID-19 (Pfizer) administered Source: Ot [facility] Provider COVID-19 (Pfizer) administered Source: Ot her Provider Payers Payer name Insurance type Covered libertarian ID Keiko berman(abiel) [facility] 16 [id number] [facility] 16 [id number] [facility] 16 [id number] [facility] 16 [id number] Social History Type Description Quantity Date Captured Comments Sex Male Smoking Status No Information Chief Complaint And Reason For Visit No Information Plan Of Treatment Date Type Action Status Referral Ordered: Referrals: Neurology. Location: [facility] Appointment date/timeframe: 10/26/2023 ordered Referral Ordered: Referrals: Cardiology. Location: [facility]. Consult Appointment date/timeframe: 02/28/2024 ordered Referral Ordered: Referrals: Pain Medicine. Consult ordered Referral Ordered: Referrals: Gastroenterology Appointment date/timeframe: 03/08/2023 ordered Referral Ordered: Referrals: [facility] Location: [facility]. Evaluate and treat ordered Referral Ordered: Referrals: Podiatry Appointment date/timeframe: 11/29/2022 ordered Referral Ordered: Referrals: Male Impersonator Appointment date/timeframe: 01/18/2023 ordered Referral Referred To: [...] 2D image, spectral Doppler, color flow image ([id number]), Ordered on: Ordered Future Order: Radiology Order Po lysomnography, 4+ add'l params ([id number]), Ordered on: Ordered History Of Present Illness Encounter Date Complaint History Of Prese nt Illness cont Neuro diagnostic : polysommogram with cpap on 04/19/2022 at [place] [facility] referred for non-restorative sleep. Found [...] pain and reported had injections monthly in [place]. He states he had injections of Toradol. Worse pain in his back and his spine does not support his upper body and he falls from side to side but no falls recently. Sister said issue with morphine and this was stopped. Moved from [place] in apr 2021 to be with son who has brain tumor. Ppt was never seen by a provider needed [place] pain management notes and did not offer medical management at this time. This note was written by an RN and it was just a call to the ppt. Awaiting notes from [place] pain management to go any further. Currently pain more controlled does not seem interested at this point. Neurology: 10/26/2023 Dr. Villalpando from [facility] went for tremor that has affected him [...] anything in the last 5 years at [facility]. Referral placed awaiting for colonoscopy. Dexa: Has [...] given shingles vaccines today and due for unao5Ll:Mind: AxOx4 can be forgetful mild cognitive impairment moca in 10/2021 not reflective of cognitive ability, very independantMeds: sister helps with meds but makes him do it while supervises so he knows how to do itMobility: independentMM: Ppt wants to move to [place] and is his main goal. ROSDenies fever [...] sometimes praveena related to not living in [place]. Does not like the cold. Does still [...] and +s2Abd soft, non tender, non distended, +klf4Qxxifq gait Skin intactFeet well taken care for, nails trimmed, +pp, no edema, reduced microfilament test, +cmsCalm and cooperative Semi-Annual Patient was seen today for their Semiannual at the office accompanied by sister who is paid care connector. Marquise is known for cancelling or not showing up for appts and had cancelled this appt multiple times and had to be reminded the importance of coming into appts so we can take care of him. Marquise enrolled at in 10/2021. Marquise lives with his sister/paid care connector and son who his sister and himself take care of in a first floor appt in [place]. The main goal of marquise and his sister is to move to [place] to the sunshine and get away from the cold and meet up with family down there. This has been a goal for some time but has not come to fruition. The family will be going to [place] for 2 weeks of vacation and the [...] have orthostasis. No falls in last month. [facility] 09/04- presented for frequent falls at [...] rain, snow and wants to move to [place]. Intermittent chest pressure/burning and dizziness/sweating when going up or down the stairs that goes away when sitting down. Ppt being worked up by neuro and cards recent hospitalization for syncope and dizziness due to orthostasis. Worried about his tremors and worried has parkinsons saw neuro today. ADLs/services: Sister is paid care connector and helps with meals, drives ppt to [...] this. Mental Health: Follows with Candace Hastings [facility] for schizoaffective disorder bipolar type and used [...] has his own teeth and follows with [facility] dental last seen 05/16/2023 when he had a filling done however this was not scanned in. Denies issues with chewing or swallowing. Had a prior tooth extraction in may 2022. Currently no issues will assess follow up at next semi unless issues. Ophthalmology: [place] [place] [facility] seen 12/2022 ordered bifocals for presbyopia, age related cataracts bilateral not yet indicated for surgical intervention. Will need follow up at next semi. Cardiology: March 19, 2022 [facility] [address]ology Dr. Banda for HTN had been on lisinopril and amlodipine in past that were stopped due to renal dysfunction ? blood clot in kidney per [facility]. Ppt had swelling at time and had [...] without regional wall motion.Endocrinology: I actually saw [facility] as endo provider [place] [facility] [place] 2022 most recently was seen [...] no nystagmusMAE=strongLSCTA bilaterallyheart rate regular +s1 and +u7nngetksev hand tremors moderate at rest and when [...] accompanied by sister who is paid care connector. We have made multiple attempts to get ppt to come into site and call but no one picked up. Discussed with paid care connector that she needs to be available by phone. She checked her phone to make sure there was nothing wrong. She reported she never got any calls. We verified her number along with ppt. Ppt FATOU was due a week earlier but never showed up multiple times and then there was two provider changes. This is my first time meeting [facility] as new pcp. Ppt enrolled at in 10/2021. Ppt lives with his sister/paid care connector and son in an first floor appt in [place]. HHN will be getting VS as not done today due to equipment errorNo recent hospitalization, SNFs or falls per ppt, collective and [facility] review in the last year.Complaints/concerns: No real concerns. Sister feels ppt is a little down however ppt reports he just wishes he was living in [place] and that is his goal. ADLs/services: Sister is paid care connector and helps with meals, drives ppt to [...] has his own teeth and follows with [facility] dental last seen 05/16/2023 when he had a filling done. Denies issues with chewing or swallowing.Ophthalmology: [place] [facility] seen 12/2022 ordered bifocals for presbyopia, age related cataracts bilateral not yet indicated for surgical intervention. Cardiology: March 19, 2022 [facility] cardiology Dr. Banda for HTN had been [...] actually saw ppt as endo provider through [facility] [place]r 2022 most recently was seen [...] do at end of month. 2022 labs [facility] Urine microalbumin neg, lipid panel 108/217/33/32, alc 8%, cr 1.1 and gfr 81. Olvin wnlNlaisha diagnostic: polysommogram with cpap on 04/19/2022 at [place] [facility] referred for non-restorative sleep. Found [...] pain and reported had injections monthly in [place]. He states he had injections of Toradol. Worse pain in his back and his spine does not support his upper body and he falls from side to side but no falls recently. Sister said issue with morphine and this was stopped. Moved from [place] in apr 2021 to be with son who has brain tumor. Ppt was never seen by a provider needed [place] pain management notes and did not offer medical management at this time. This note was written by an RN and it was just a call to the ppt. Awaiting notes from [place] pain management to go any further. Colonoscopy: ppt is unsure. I do not see anything in the last 5 years at [facility]. Will try to find if he has [...] for shingles vaccines, tdap, and flu in snws0Lb:Mind: AxOx4 can be forgetful mild cognitive impairment [...] sometimes praveena related to [place] age [id number] intact Pt has own teeth with no concerns Moist mucous membranesNo enlarged cervical lymph nodes, thyroid inspected with no nodules palpatedBilateral hand tremor restingLSCTA bilaterally Heart regular rate +s1 and +s2Abd soft, non tender, non distended, +lpk7Docern gait Skin intactFeet well taken care for, [...] - appt pending Prescriber - Candace Hastings ([facility])No questions or concerns he is doing so much better reports a family memberHX OF COCCAINE/OPIOID ABUSEDenies current useHTNMetoprololBP 104/70 todayLabs later DM w/ NWZGACIRLYG2g - 7% (04/2022)Foot exam?Metformin, lantus, HumalogDoes not [...] injections- pt cant go until records form [place] get to pain clinic-Pysch: referral in place- [...] for a PHV. Pt was brought to [facility] on 01/25 for back pain. [...] is a good support along with his scientologist. -Currently denies any type of hallucinations or delusions. Denies wanting to hurt himself or anyone else. Denies SI. Both he and his sister feel he is the best he has been and in a stable place. Reports a little depressed as he wants to move to [place] but comes and goes. Follows with Candace Hastings [facility] for schizoaffective disorder bipolar type and used [...] is working on getting ppt into [facility] therapyContinue to monitor Related to Schizoaffective disorder, [...] a good support and also Jehovah witness scientologist. No longer doing drugs for some time [...] the same as well as sister (in [place])denies any current useusing non opioid alternatives for chronic pain with sucess like gabapentin and cymbalta Related to Opioid dependence in remission no seizure activityN a wnl at [facility] depokote 375 bid with valporic acid level [...] saw ppt a s endo provider through [facility] [place]r 2022 most recently was seen [...] diabetes mellitus with diabetic polyneuropathy, unspecified whether mcfp insulin use wants cpr but dni wh ich doesn't make sense but does not want to change anything. Ppt is his own person and educated.lives with sister who is hcp proxy and paid care givergoal is to [place] to [place] if had colonoscopy if [...] po lysommogram with cpap on 04/19/2022 at [place] [facility] referred for non-restorative sleep. Found [...] from pts previous pain clinic in [facility].Pt does not want any aggressive measures nor wanting any narcotics d/t past hx of addition. Currently on cymbalta, gabapentin and voltaren, tylenol and recently went up on gabapentin. Reports pain controlled. Since pain clinic won't see him without [place] notes and unable to obtain and ppt reports controlled willl d/c referral ppt is okay with this. Related to Other chronic pain Chronic back pain r/ t multiple surgeries per pt. Pt has pain clinic referral though pain clinic is waiting for past notes from pts previous pain clinic in [facility].Pt does not want any aggressive measures nor wanting any narcotics d/t past hx of addition. Currently on cymbalta, gabapentin and voltaren, tylenol and recently went up on gabapentin. Reports pain controlled. Since pain clinic won't see him without [place] notes and unable to obtain and ppt reports controlled willl d/c referral ppt is okay with this. Related to Chronic bilateral low back pain without sciatica I have deterioratio n of my spine like my father he reported. He reports he had been getting monthly injections in his neck and spine. Last injection was in [place].Pt reports chronic pain in his back. He [...] placed but unable to get notes from [place] and wont' see him. Reports currently pain controlled and does not need referral. Related to Cervical disc disease 10/26/[address] [facility] to ongoing tremors affecting quality [...] gait and speech at times. However admitted [facility] 09/04-09/08 for syncope found to have orthostasis [...] to do echo. Treadmill standard with [facility] on 09/2008 due to chest pain [...] can result in this had admit [place] [facility] [place] for syncope, falls, dizziness found [...] pain and reported had injections monthly in [place]. He states he had injections of Toradol. Worse pain in his back and his spine does not support his upper body and he falls from side to side but no falls recently until today. Sister said issue with morphine and this was stopped. Moved from [place] in apr 2021 to be with son who has brain tumor. Ppt was never seen by a provider needed [place] pain management notes and did not offer medical management at this time. This note was written by an RN and it was just a call to the ppt. Awaiting notes from [place] pain management to go any further. on [...] po lysommogram with cpap on 04/19/2022 at [place] [facility] referred for non-restorative sleep. Found [...] pain mangement but didn't have records from [facility] so wouldn't see him per [...] opioids ie morphineppt enodrses the same (in [place])denies any current usewill re-eval for acute pain/surgical [...] saw ppt a s endo provider [place] [facility] [place] 2022 most recently was seen [...] do at end of month. 2022 labs [facility] Urine microalbumin neg, lipid panel 108/217/33/32, alc 8%, cr 1.1 and gfr 81. Lytes wnlgoal alc less than 7% and discussed microvascular and macrovascular complications of uncontrolled dm Related to Type 2 diabetes mellitus with diabetic polyneuropathy, unspecified whether termite exterminator insulin use has seen urology in past [...] from pts previous pain clinic in [facility].Pt does not want any aggressive measures [...] from pts previous pain clinic in [facility].Pt does not want any aggressive measures [...] pain and reported had injections monthly in [place]. He states he had injections of Toradol. Worse pain in his back and his spine does not support his upper body and he falls from side to side but no falls recently. Sister said issue with morphine and this was stopped. Moved from [place] in apr 2021 to be with son who has brain tumor. Ppt was never seen by a provider needed [place] pain management notes and did not offer medical management at this time. This note was written by an RN and it was just a call to the ppt. Awaiting notes from [place] pain management to go any further. on [...] po lysommogram with cpap on 04/19/2022 at [place] [facility] referred for non-restorative sleep. Found [...] care givergoal [place] if had colonoscopy if not due for oneno longer needs to see endo I can manage thatcontinue to follow with pysch Related to Healthcare maintenance bipolar well control led without symptoms just some mild sadness as he wants to move to [place] but reports he is happy most days [...] depressed as he wants to move to [place] but comes and goes. -Continue: seroquel 100mg at bedtime ziprasidone 80mg at bedtime, cymbalta, trazodone 10mg daily, and depakote 375 mg BID. -prescirbed and managed by psych he sees rdaha colin and missed appt on 05/16 and [...] dependance on opioidsppt enodrses the same (in [place])denies any current usewill re-eval for acute pain/surgical [...] exam benign except for decreased sensationref to [id number] and labs todayeval ongoing Related to Type 2 diabetes mellitus with diabetic polyneuropathy, with long-term current use of insulin last a1c 7.00using C GMsugars sometimes labile - may be d/t antipsychotic use continues on humalog, lantus, metforminfoot exam benign except for decreased sensationref to [id number] and labs todayeval ongoing Related to alf (current) use of insulin continues on STATIN [...] cymbalta, seroq uel, trazodone, ziprasidone 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 He did not receive the medication nor notify [facility] until Tuesday that the pharmacy could not fill as they were out of stock . Ppt did tell SE he would be going back to [facility] for symptoms on 06/28/22 at [...] type, unspecified laterality, unspecified part of lung [facility] 05/29 Admitted for sepsis secondary to likely aspiration pneumonia in the setting of extrapyramidal symptoms from Antipsychotics. He was given ceftriaxone, doxycycline sepsis resolved and was discharged home on 7 more days of augmentin.Medication changes:Antipsychotics have been prescribed by Jeremias Vizcarra's office-Seroquel 100mg at bedtime-Depakote DR 375mg BID Related to ferry terminal agent current use of antipsychotic medication Pt reports [...] for medical records from pain clinic in [place] Related to Opioid dependence, in remission He [...] prescribed and managed by psych. Related to ferry terminal agent current use of antipsychotic medication Mild tremor [...] from pts previous pain clinic in [facility].Pt does not want any aggressive measures [...] and made the following recommendations -Changed: insulin [id number]> 17unitsSTARTED lantus 24units in AMCONTINUE metformin 500mg BIDNeuropathy reported in paul feet; numbness and tingling.Abnormal monofilment exam, loss of protective sensation. Diabetic foot exam education. -Continue gabapentin-Education provided on new medications and daily feet checks. Related to Type 2 diabetes mellitus with diabetic polyneuropathy, unspecified whether termite exterminator insulin use Pt at first was brandon [...] taking his medication from previous PCP in [place]). He had been referred to a therapist [...] and made the following recommendations -Changed: insulin [id number]> 17unitsSTARTED lantus 24units in AMCONTINUE metformin 500mg [...] diabetes mellitus with diabetic polyneuropathy, unspecified whether mcfp insulin use Discussed during las t visit [...] a PHV . Pt was brought to [facility] on 01/25 for back pain. He received 3 injections (1 in each arm and one in his left leg per sister). Today pt continues to complain of back pain. Pt had been going to pain clinic when he was living in [place] and reported relief w/ injections.Plan: Discussed trying [...] Current use of insulin History of T2DM [facility] age 34 being treated w/ metformin [...] diabetes mellitus with diabetic polyneuropathy, unspecified whether termite exterminator insulin use Denied cocaine abuse early in our conversation though then discussed cocaine use for a suicide attempt. -Has attempted suicide 2x in the past: cutting and cocaine overdose. Identifies his sister is a good support. Plan: drug screen Related to History of cocaine abuse History of T2DM [facility] age 34 being treated w/ metformin [...] diabetes mellitus with diabetic polyneuropathy, unspecified whether mcfp insulin use I have deterieratio n of my spine like my father . He reports he had been getting monthly injections in his neck and spine. Last injection was in [place] 5 months ago. Pt reports 8/10 pain [...] tremor has been noted since living in [place]. Treated w/ primidone.He is on several psychiatric medications which could be contributing. Related to Essential tremor ED treated w/ a IPP 10 years ago. He takes testosterone injections monthly though has not taken since leaving [place] 5 months ago. Discussed referring back to [...] taking his medication from previous PCP in [place]). He had been referred to a therapist [...] taking his medication from previous PCP in [place]). He had been referred to a therapist [...] taking his medication from previous PCP in [place]). He had been referred to a therapist [...] taking his medication from previous PCP in [place]). -Continue: seroquel 200mg at bedtime ziprasidone 80mg at bedtime, fluoxetine 60mg daily, primodone 50mg daily, trazodone 10mg daily, and depakote 1000mg daily. -prescirbed and managed by psych; pt reports ziprasidone was increased but unsure of dose.11/10/21 EKG: normal; QT/QTC 406/418Ordered valporic acid level, primidone level Related to alf current use of antipsychotic medication Pt reports I had a seizure along time ago . No clarity on when this event took place. He is on depakote. Related to Seizure BP 114/60-Currently taking metoprolol and lisinopril Related to Hypertension, unspecified type History of T2DM bein g treated w/ metformin and insulin.-Currently taking Novolog 20-25units bidPt reports poor diabetes control (300s/400s fasting). Obtaining an A1C to further evaluate. Discussed considering a endocrine referral if A1C is poor.Appetite is not great per pt missing meals at time. Nutrition is working w/ pt. Will be ordering glucernia. Related to Current use of insulin Per preenrollment re cords. Lipid panel ordered.-Currently taking [id number] daily Related to Hypercholesteremia TB quanteferon GOLD Related to E ncounter [...]
== END 2025-05-09 08:28 | disposition home or self-care (01) ==
LOC: HO.HOSX 08:27
PROVIDERS: Visit Provider Physician Assistant
DX: Z13.89 Encounter for screening for other disorder (principal)

== ENCOUNTER 2025-05-20 11:45 | Outpatient (REF) | payer MEDICARE, MEDICAID, SELFPAY ==
--- NOTE | ~2025-05-20 | XR_ITS ---
EXAMINATION: XR ANKLE, RIGHT CLINICAL INFORMATION: M25.571 - Pain in right ankle and joints of right foot COMPARISON: March 25, 2025 TECHNIQUE: AP, lateral, and mortise views of the right ankle. FINDINGS: Persistent 1.8 mm gap between the fragments of the lateral malleolus fracture with minimal periosteal bone reaction/callus formation. No gross soft tissue contusion. No subcutaneous emphysema. XR/XR ankle RT min 3V IMPRESSION: No gross change. Electronically signed by: Noe Bolaños MD 05/20/2025 01:18 PM EDT
== END 2025-05-20 11:46 | disposition home or self-care (01) ==
LOC: HO.HOSX 11:45
PROVIDERS: Visit Provider Physician Assistant
DX: S82.61XA Displaced fracture of lateral malleolus of right fibula, initial encounter for closed fracture (principal); M25.571 Pain in right ankle and joints of right foot; X58.XXXA Exposure to other specified factors, initial encounter
CPT/HCPCS: 73610; 99212

== ENCOUNTER 2025-05-20 13:08 | Outpatient (AMB) | payer MEDICARE, MEDICAID, SELFPAY ==
--- OUTSIDE RECORDS SUMMARY | 2024-03-05 05:14 | XMS_ITS | Continuity of Care Document ---
Author Organization [facility] Address [address] [address] Phone Care Team Providers Care Cutter Aluminum Sheet Name Role Phone Jer FREY, Ujjwala Unavailable [...] 08/31/2023 appt with psych amrit hastings from [facility] Lantus U-100 Insulin 100 unit/mL subcutaneous solution [...] Has been filled by Psych so far [employer] [facility] 2 [place] use to read blood sugar QID - Active Advance Directives Directive Yes / No Effective Date File Name No Information Encounters Encounter Description Practice Location Reason(s) For Visit Diagnoses Date Provider Critical access hospital, 1 [facility] [address], [place], [place], [id number], [place] tel:[phone] [place] No Information Shreyas- 0-202 4 Jer Fletcherjjjanea. [address] [place], [place], [id number], [place]. tel:[phone] Critical access hospital, [address], [place], [place], [id number], [place] tel:[phone] [place] No Information January-2 4-202 4 Coon Ashlee. [address] [place], [place], [id number], [place]. tel:[phone] Critical access hospital, [address] [facility], [place], [place], [id number], [place] tel:[phone] [place] No Information January-2 3-202 4 Coon Ashlee. [address] [place], [place], [id number], [place]. tel:[phone] Critical access hospital, [address], [place], [place], [id number], [place] tel:[phone] [place] No Information Dec-3 0-202 4 Coon Ashlee. [address] [place], [place], [id number], [place]. tel:[phone] [facility], [place], [place], [address], [place] tel:[phone] [place] No Information Dec-2 2-202 4 Coon Ashlee. [address] [place], [place], [address], [place]. tel:[phone] Critical access hospital, [address], [place], [place], [address], [place] tel:[phone] [place] No Information Dec-1 9-202 4 Coon Ashlee. [address] [place], [place], [address], [place]. tel:[phone] Critical access hospital, [address], [place], [place], [address], [place] tel:[phone] [place] No Information 4 Coon Ashlee. [address] [place], [address], [place]. tel:[phone] [facility], 1 [facility], [place], [place], [id number], [place] tel:[phone] [place] No Information 4 Pitsiladis Adelina. [address] [facility] [place], [id number], [place]. tel:[phone] Critical access hospital, [address] [address], [place], [place], [address], [place] tel:[phone] [place] No Information 4 Coon Ashlee. [address] [facility] [place], [address], [place]. tel:[phone] Critical [facility] hospital, 1 [facility], [place], [place], [id number], [place] tel:[phone] [place] Encounter for nutritional assessmentDiabetic nutritional counseling completed 4 Normile Caitlin. [address] [facility] [place], [address], [place]. tel:[phone] Critical access hospital, [address] [address], [place], [place], [address], [place] tel:[phone] [place] No Information 4 Coon Ashlee. [address] [facility] [place], [address], [place]. tel:[phone] Critical access hospital, [address] [address], [place], [place], [id number], [place] tel:[phone] [place] Muscle weakness (generalized) b0 4 Brianna Leonarda. [address] [facility] [place], [address], [place]. tel:[phone] [facility], [address] [facility] [address], [place], [place], [id number], [place] tel:[phone] [place] Difficulty in walkin g, not elsewhere classified [address] Caraballo[address] [facility] [place], [address], [place]. tel:[phone] Critical [facility] hospital, 1 [facility], [place], [place], [address], [place] tel:[phone] [place] Muscle weakness (generalized) 4 Brianna Brower. [address] [facility] [place], [address], [place]. tel:[phone] Critical [facility] hospital, 1 [facility], [place], [place], [address], [place] tel:[phone] [place] Encounter for rehabilitation evaluation 4 Brianna Brower. [address], [place], [place], [id number], [place]. tel:[phone] Critical access hospital, [address] [facility] [address], [place], [place], [address], [place] tel:[phone] [place] Semi-Annua l (chief complaint) cont (chief complaint) Type 2 diabetes mellitus with diabetic polyneuropathy, unspecified whether fdc insulin useCurrent use of insulinSeizureOpioid dependence in remissionHistory of cocaine abusePTSD (post-traumatic stress disorder)Schizoaffectiv e disorder, bipolar typeHypercholesteremiaH ypertension, unspecified typeOrthostatic hypotensionEssential tremorCervical disc diseaseChronic bilateral low back pain without sciaticaOther chronic painObstructive sleep apneaDysautonomiaParkview Health [facility] care maintenance 4 Shaggy Rosado. [address] [place], [id number], [place]. tel:[phone] Critical access hospital, [address] [facility] [address], [place], [place], [address], [place] tel:[phone] [place] No Information 4 Coonbridgett oRsado. [address] [place], [place], [address], [place]. tel:[phone] Critical access hospital, [address], [place], [place], [id number], [place] tel:[phone] [place] No Information 4 Jake Hoffman. [address] [place], [place], [id number], [place]. tel:[phone] Critical access hospital, [address], [place], [place], [address], [place] tel:[phone] [place] Difficulty in walkin g, not elsewhere classified [address] Caraballo[address] [place], [place], [address], [place]. tel:[phone] Critical access hospital, [address], [place], [place], [id number], [place] tel:[phone] [place] Difficulty in walkin g, not elsewhere classified [address] Caraballo[address] [place], [place], [address], [place]. tel:[phone] Critical access hospital, [address], [place], [place], [address], [place] tel:[phone] [place] Encounter for rehabilitation evaluationDifficulty in walking, not elsewhere classified 3 [address] Caraballo. [address], [place], [place], [address], [place]. tel:[phone] Critical access hospital, [address], [place], [place], [address], [place] tel:[phone] [place] No Information 3 Shaggy Rosado. [address] [place], [place], [address], [place]. tel:[phone] Critical access hospital, [address], [place], [place], [address], [place] tel:[phone] [place] Muscle weakness (generalized) Aug- 3 Court Caraballo. [address] [place], [place], [address], [place]. tel:[phone] Critical access hospital, [address], [place], [place], [address], [place] tel:[phone] [place] Other abnormalities of gait and mobility 3 [address] Caraballo[address], [place], [place], [id number], [place]. tel:[phone] Critical access hospital, [address], [place], [place], [address], [place] tel:[phone] [place] No Information 3 Shaggy Rosado. [address] [place], [place], [address], [place]. tel:[phone] Critical access hospital, [address], [place], [place], [address], [place] tel:[phone] [place] No Information 3 Shaggy Rosado. [address] [place], [place], [address], [place]. tel:[phone] Critical access hospital, [address], [place], [place], [address], [place] tel:[phone] [place] Difficulty in walkin g, not elsewhere classified [address]aballo[address] [place], [place], [address], [place]. tel:[phone] Critical access hospital, [address], [place], [place], [address], [place] tel:[phone] [place] Difficulty in walkin g, not elsewhere classified [address] aCraballo[address] [place], [place], [address], [place]. tel:[phone] Critical access hospital, [address] [facility], [place], [place], [address], [place] tel:[phone] [place] Acute Visit (chief complaint) Essential tremorObstructive sleep apneaOrthostatic hypotensionOther chronic pain 3 Shaggy Rosado. [address] [place], [place], [address], [place]. tel:[phone] Critical access hospital, 1 [facility], [place], [place], [address], [place] tel:[phone] [place] Difficulty in walkin g, not elsewhere classified [address]aballo[address] [place], [place], [id number], [place]. tel:[phone] Critical access hospital, 1 [facility], [place], [place], [address], [place] tel:[phone] [place] Difficulty in walkin g, not elsewhere classified [address] Rashmi[address] [place], [place], [id number], [place]. tel:[phone] Critical access hospital, 1 [facility], [place], [place], [address], [place] tel:[phone] [place] Encounter for rehabilitation evaluation 3 [address] Rashmi[address] [place], [place], [address], [place]. tel:[phone] Critical access hospital, 1 [facility], [place], [place], [address], [place] tel:[phone] [place] No Information 3 Danny Hodges. [address] [place], [place], [address], [place]. tel:[phone] Critical access hospital, 1 [facility] [address], [place], [place], [address], [place] tel:[phone] [place] Semi-Annua l (chief complaint) Schizophrenia, unspecified typeBipolar 1 disorderHealthcare maintenanceObstructive sleep apneaEssential tremorChronic pain syndromeCervical disc diseaseSeizureHyperchol esteremiaChronic bilateral low back pain, unspecified whether sciatica presentOther chronic painErectile dysfunction, unspecified erectile dysfunction typeUrinary incontinence, unspecified typeType 2 diabetes mellitus with diabetic polyneuropathy, unspecified whether terminologist insulin useCurrent use of insulinPrimary hypertensionOpioid dependence in remissionHistory of cocaine abusePTSD (post-traumatic stress disorder) 3 Shaggy Rosado. [address] [facility] [place], [place], [place], [id number], [place]. tel:[phone] [facility], [address] [facility] [address], [place], [place], [id number], [place] tel:[phone] [place] Encounter for nutritional assessmentAt risk for inadequate oral intakeDiabetic nutritional counseling completed 3 Pelon Tucker. [address] [place], [place], [id number], [place]. tel:[phone] Critical access hospital, 1 [facility], [place], [place], [address], [place] tel:[phone] [place] Dorsalgia, unspecified 3 Bhagavatula Uclaricejwala. [address] [facility] [place], [place], [place], [address], [place]. tel:[phone] Critical access hospital, 1 [facility], [place], [place], [id number], [place] tel:[phone] [place] Encounter for genera l adult medical examination without abnormal findings 3 Robert Johnson. [address] [place], [place], [address], [place]. tel:[phone] Critical access hospital, [address] [facility] [address] [address], [place], [place], [address], [place] tel:[phone] [place] Type 2 diabetes mellitus with other skin complications 3 Bhagavatula Ujjwala. [address] [facility] [place], [address], [place]. tel:[phone] Critical access hospital, [address], [place], [place], [address], [place] tel:[phone] [place] Other chest pain 3 Robert Johnson. [address] [place], [address], [place]. tel:[phone] Critical access hospital, [address] [facility] [address] [address], [place], [place], [address], [place] tel:[phone] [place] Encounter for nutritional assessmentDiabetes education, encounter forExcessive carbohydrate intakeAt risk for inadequate oral intake 3 Pelon Tucker. [address] [facility] [place], [address], [place]. tel:[phone] Critical access hospital, [address] [facility] [address], [place], [place], [address], [place] tel:[phone] [place] Other chronic pain 3 Praneeth Cerna. [address] [facility] [address], [place], [place], [address], [place]. tel:[phone] Critical access hospital, [address] [facility] [address] [facility], [place], [place], [address], [place] tel:[phone] [place] Encounter for rehabilitation evaluation 3 Praneeth Cerna. [address] [facility] [place], [address], [place]. tel:[phone] Critical access hospital, [address], [place], [place], [address], [place] tel:[phone] [place] Encounter for rehabilitation evaluation 3 Jamshid Fregoso. [address] [facility] [place], [address], [place]. tel:[phone] Critical access hospital, [address], [place], [place], [address], [place] tel:[phone] [place] FATOU (chief complaint) Schizophrenia, unspecified typeBipolar 1 disorderLong term current use of antipsychotic medicationHistory of cocaine abuseHypertension, unspecified typeHypercholesteremiaT ype 2 diabetes mellitus with diabetic polyneuropathy, with long-term current use of insulinLong term (current) use of insulinEssential tremorSeizureLong term (current) use of oral hypoglycemic drugsOpioid dependence, in remission 3 Robert Alex. [address] [place], [place], [id number], [place]. tel:[phone] Critical access hospital, [address] [facility] [address], [place], [place], [address], [place] tel:[phone] [place] No Information 2 Danny Hodges. [address] [place], [place], [address], [place]. tel:[phone] Critical access hospital, [address] [facility], [place], [place], [address], [place] tel:[phone] [place] Muscle weakness (generalized) 2 Kirsten Kip. [address] [place], [address]. tel:[phone] Critical access hospital, [address], [place], [place], [address], [place] tel:[phone] [place] PHV (chief complaint) senior living current use of antipsychotic medicationAspiration pneumonia, unspecified aspiration pneumonia type, unspecified laterality, unspecified part of lung 2 Os Crissy. [address] [place], [place], [address], [place]. tel:[phone] Critical access hospital, [address] [facility] [address] [place] [address], [id number], [place] tel:[phone] [place] No Information 2 Danny Hodges. [address] [place], [place], [address], [place]. tel:[phone] Critical access hospital, [address] [facility], [place], [place], [address], [place] tel:[phone] [place] Muscle weakness (generalized) 2 Kirsten Kip. [address] [place], [address]. tel:[phone] Critical access hospital, [address] [facility] [address] [facility], [place], [place], [address], [place] tel:[phone] [place] Muscle weakness (generalized) 2 Kirsten Kip. [address] [place], [address]. tel:[phone] Critical access hospital, 1 [facility], [place], [place], [address], [place] tel:[phone] [place] No Information 2 Os Crissy. [address] [place], [place], [address], [place]. tel:[phone] Critical access hospital, 1 [facility], [place], [place], [address], [place] tel:[phone] [place] Hemiplegia and hemiparesis following unspecified cerebrovascular disease affecting right non-dominant sideMuscle weakness (generalized) 2 Kirsten Kip. [address] [place], [address]. tel:[phone] Critical access hospital, 1 [facility], [place], [place], [address], [place] tel:[phone] [place] Diabetes education, encounter forEncounter for nutritional assessmentExcessive carbohydrate intake 2 Normile Caitlin. [address] [place], [place], [address], [place]. tel:[phone] Critical access hospital, 1 [facility], [place], [place], [address], [place] tel:[phone] [place] FATOU (chief complaint) Hypertension, unspecified typeHypercholesteremiaC urrent use of insulinType 2 diabetes mellitus with diabetic polyneuropathy, unspecified whether fdc insulin useSchizophrenia, unspecified typeBipolar 1 disorderPTSD (post-traumatic stress disorder)senior living current use of antipsychotic medicationBack pain, unspecified back location, unspecified back pain laterality, unspecified chronicitySeizureEssent ial tremorOpioid dependence, in remission 2 Os Crissy. [address] [place], [place], [address], [place]. tel:[phone] Critical access hospital, 1 [facility], [place], [place], [id number], [place] tel:[phone] [place] Extraction of tooth needed 2 Os Crissy. [address] [place], [place], [address], [place]. tel:[phone] Critical access hospital, [address] [facility] [address] [facility], [place], [place], [address], [place] tel:[phone] [place] Muscle weakness (generalized) 2 Kirsten Kip. [address] [place], [address]. tel:[phone] Critical access hospital, [address] [facility] [address] [facility], [place], [id number], [place] tel:[phone] [place] Muscle weakness (generalized) 2 Kirsten Kip. [address], [place], [address]. tel:[phone] Critical access hospital, 1 [facility], [place], [place], [address], [place] tel:[phone] [place] Obstructive sleep apnea 2 Os Crissy. [address] [place], [place], [address], [place]. tel:[phone] Critical access hospital, [address] [facility] [address] [facility], [place], [place], [address], [place] tel:[phone] [place] Difficulty in walkin g, not elsewhere classified 2 Kirsten Kip. [address] [place], [address]. tel:[phone] Critical [facility] hospital, [address] [facility], [place], [place], [address], [place] tel:[phone] [place] Other chronic pain 2 Danny Carroll. [address] [place], [address], [place]. tel:[phone] [facility], 1 [facility] [address], [place], [place], [id number], [place] tel:[phone] [place] Type 2 diabetes mellitus with diabetic polyneuropathy, unspecified whether terminologist insulin use 2 Os Crissy. [address] [place], [address], [place]. tel:[phone] Critical access hospital, [address] [facility] [address] [facility], [place], [place], [address], [place] tel:[phone] [place] FUV (chief complaint) Edema, unspecified type 2 Os Crissy. [address] [place], [place], [address], [place]. tel:[phone] Critical access hospital, 1 [facility], [place], [place], [address], [place] tel:[phone] [place] PHV (chief complaint) Back pain, unspecified back location, unspecified back pain laterality, unspecified chronicity 2 Os Crissy. [address] [place], [place], [address], [place]. tel:[phone] [facility], [address] [facility], [place], [place], [address], [place] tel:[phone] [place] OV (chief complaint) Current use of insulinFall, initial encounterType 2 diabetes mellitus without complication, with long-term current use of insulin 2 Os Crissy. [address] [place], [place], [address], [place]. tel:[phone] Critical [facility] hospital, [address] [facility] [address], [place], [place], [address], [place] tel:[phone] [place] No Information 2 Os Crissy. [address] [place], [place], [address], [place]. tel:[phone] Critical access hospital, [address] [facility] [address], [place], [place], [address], [place] tel:[phone] [place] Type 2 diabetes mellitus with diabetic polyneuropathy, unspecified whether terminologist insulin use 2 Os Crissy. [address] [place], [place], [address], [place]. tel:[phone] Critical access hospital, 1 [facility], [place], [place], [address], [place] tel:[phone] [place] Encounter for nutritional assessmentAbnormal weight lossDiabetes education, encounter for 2 Normile Caitlin. [address] [place], [place], [address], [place]. tel:[phone] Critical access hospital, [facility] [address], [place], [place], [address], [place] tel:[phone] [place] PEE (chief complaint) Hypertension, unspecified typeHypercholesteremiaC urrent use of insulinErectile dysfunction, unspecified erectile dysfunction typeSchizophrenia, unspecified typeBipolar 1 disorderPTSD (post-traumatic stress disorder)senior living current use of antipsychotic medicationSeizureCervic al disc diseaseChronic pain syndromeEssential tremorEncounter for general adult medical examination without abnormal findingsOpioid dependence, in remissionType 2 diabetes mellitus with diabetic polyneuropathy, unspecified whether terminologist insulin useHistory of cocaine abuse 2 Os Crissy. [address] [place], [place], [address], [place]. tel:[phone] Critical [facility] hospital, 1 [facility], [place], [place], [address], [place] tel:[phone] [place] Encounter for rehabilitation evaluation 2 Kirsten Shin. [address], [place], [address]. tel:[phone] Critical access hospital, [facility] [address] [facility], [place], [place], [address], [place] tel:[phone] [place] Encounter for rehabilitation evaluationDifficulty in walking, not elsewhere classifiedAlteration in performance of activities of daily living 2 Deirdre Garcia Zenobia Leonard. [address] [place], [place], [address]. tel:[phone] Critical access hospital, [facility] [address] [facility], [place], [place], [address], [place] tel:[phone] [place] Encounter for genera l adult medical examination without abnormal findings 2 Jeffrey Robins. [address], [place], [place], [address], [place]. tel:[phone] Critical access hospital, [facility] [address] [facility], [place], [place], [address], [place] tel:[phone] [place] No Information 2 Aria Chambers. [address] [place], [address], [place]. tel:[phone] Family History Family Member Type Diagnosis Age At Onset Mother Problem Diabetes mellitus Father Problem Heart disease Immunizations Vaccine Date Status Comments Zoster recombinant subunit administered S ource: New Immunization Record Flu-IIV4, p-free administered Source: Ot er Registry COVID-19 Pfizer Bivalent 12y+ administere d Source: Other Registry Fluzone Quad administered [facility] e: New Immunization Record Prevnar 13 administered Source: New Imm unization Record Fluzone Quad [id number] administered Note: Got influenza vaccine same day as COVID ; Source: Other Registry COVID-19 (Pfizer) administered Source: Ot [facility] Provider COVID-19 (Pfizer) administered Source: Ot her Provider Payers Payer name Insurance type Covered green party ID Keiko berman(abiel) [facility] 16 [id number] [facility] 16 [id number] [facility] 16 [id number] [facility] 16 [id number] Social History Type Description Quantity Date Captured Comments Sex Male Smoking Status No Information Chief Complaint And Reason For Visit No Information Plan Of Treatment Date Type Action Status Referral Ordered: Referrals: Neurology. Location: [facility] Appointment date/timeframe: 10/26/2023 ordered Referral Ordered: Referrals: Cardiology. Location: [facility]. Consult Appointment date/timeframe: 02/28/2024 ordered Referral Ordered: Referrals: Pain Medicine. Consult ordered Referral Ordered: Referrals: Gastroenterology Appointment date/timeframe: 03/08/2023 ordered Referral Ordered: Referrals: [facility]ry Location: [facility]. Evaluate and treat ordered Referral Ordered: Referrals: Podiatry Appointment date/timeframe: 11/29/2022 ordered Referral Ordered: Referrals: [facility] Appointment date/timeframe: 01/18/2023 ordered Referral Referred To: [...] 2D image, spectral Doppler, color flow image ([id number]), Ordered on: Ordered Future Order: Radiology Order Po lysomnography, 4+ add'l params ([id number]), Ordered on: Ordered History Of Present Illness Encounter Date Complaint History Of Prese nt Illness Semi-Annual Patient was seen today for their Semiannual at the office accompanied by sister who is paid personal care aide. Marquise is known for cancelling or not showing up for appts and had cancelled this appt multiple times and had to be reminded the importance of coming into appts so we can take care of him. Marquise enrolled at in 10/2021. Marquise lives with his sister/paid personal care aide and son who his sister and himself take care of in a first floor appt in [place]. The main goal of marquise and his sister is to move to [place] to the sunine and get away from the cold and meet up with family down there. This has been a goal for some time but has not come to fruition. The family will be going to [place] for 2 weeks of vacation and the [...] have orthostasis. No falls in last month. [facility] 09/04- presented for frequent falls at [...] rain, snow and wants to move to [place]. Intermittent chest pressure/burning and dizziness/sweating when going up or down the stairs that goes away when sitting down. Ppt being worked up by neuro and cards recent hospitalization for syncope and dizziness due to orthostasis. Worried about his tremors and worried has parkinsons saw neuro today. ADLs/services: Sister is paid personal care aide and helps with meals, drives ppt to [...] this. 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 Sister helps with nails as well. No need to continue to follow with podiatry.Audiology: No issues with hearing and does not wear hearing aidsDental: Ppt has his own teeth and follows with [facility] dental last seen 05/16/2023 when he had a filling done however this was not scanned in. Denies issues with chewing or swallowing. Had a prior tooth extraction in may 2022. Currently no issues will assess follow up at next semi unless issues. Ophthalmology: Follows with [facility] optometry seen 12/2022 ordered bifocals for presbyopia, age related cataracts bilateral not yet indicated for surgical intervention. Will need follow up at next semi. Cardiology: March 19, 2022 [facility] cardiology Dr. Banda for HTN had been on lisinopril and amlodipine in past that were stopped due to renal dysfunction ? blood clot in kidney per ppt. Ppt had swelling at time and had [...] without regional wall motion.Endocrinology: I actually saw [facility] as endo provider through [facility] last apr 2022 most recently was seen [...] labs [facility] Urine microalbumin neg, lipid panel 108/217//32, and in 07/2023 alc 7.3% (not anemia at the time), cr 1.01 and gfr 86. Lytes wnl, glucose 232 cont Neuro diagnostic : polysommogram with cpap on 04/19/2022 at [facility] referred for non-restorative sleep. Found [...] pain and reported had injections monthly in [place]. He states he had injections of Toradol. Worse pain in his back and his spine does not support his upper body and he falls from side to side but no falls recently. Sister said issue with morphine and this was stopped. Moved from [place] in apr 2021 to be with son who has brain tumor. Ppt was never seen by a provider needed [place] pain management notes and did not offer medical management at this time. This note was written by an RN and it was just a call to the ppt. Awaiting notes from [place] pain management to go any further. Currently pain more controlled does not seem interested at this point. Neurology: 10/26/2023 Dr. Villalpando from [facility] went for tremor that has [...] anything in the last 5 years at [facility]. Referral placed awaiting for colonoscopy. Dexa: Has [...] given shingles vaccines today and due for blrs1Fr:Mind: AxOx4 can be forgetful mild cognitive impairment moca in 10/2021 not reflective of cognitive ability, very independantMeds: sister helps with meds but makes him do it while supervises so he knows how to do itMobility: independentMM: Ppt wants to move to [place] and is his main goal. ROSDenies fever [...] sometimes praveena related to not living in [place]. Does not like the cold. Does still [...] and +s2Abd soft, non tender, non distended, +xpz5Cakszi gait Skin intactFeet well taken care for, nails trimmed, +pp, no edema, reduced microfilament test, +cmsCalm and cooperative Acute Visit PT has been work ing [...] no nystagmusMAE=strongLSCTA bilaterallyheart rate regular +s1 and +e1cxbmdntps hand tremors moderate at rest and when [...] home accompanied by sister who is paid personal care aide. We have made multiple attempts to get ppt to come into site and call but no one picked up. Discussed with paid personal care aide that she needs to be available by phone. She checked her phone to make sure there was nothing wrong. She reported she never got any calls. We verified her number along with ppt. Ppt FATOU was due a week earlier but never showed up multiple times and then there was two provider changes. This is my first time meeting [facility] as new pcp. Ppt enrolled at in 10/2021. Ppt lives with his sister/paid personal care aide and son in an first floor appt in [place]. HHN will be getting VS as not done today due to equipment errorNo recent hospitalization, SNFs or falls per ppt, collective and [facility] review in the last year.Complaints/concerns: No real concerns. Sister feels ppt is a little down however ppt reports he just wishes he was living in [place] and that is his goal. ADLs/services: Sister is paid personal care aide and helps with meals, drives ppt to [...] has his own teeth and follows with [facility] dental last seen 05/16/2023 when he had a filling done. Denies issues with chewing or swallowing.Ophthalmology: Follows with [facility] optometry seen 12/2022 ordered bifocals for presbyopia, age related cataracts bilateral not yet indicated for surgical intervention. Cardiology: March 19, 2022 [facility] cardiology Dr. Banda for HTN had been [...] actually saw ppt as endo provider through [facility] last apr 2022 most recently was seen [...] do at end of month. 2022 labs [facility] Urine microalbumin neg, lipid panel 108/217/33/32, alc 8%, cr 1.1 and gfr 81. Olvin wnlNlaisha diagnostic: polysommogram with cpap on 04/19/2022 at [facility] referred for non-restorative sleep. Found [...] pain and reported had injections monthly in [place]. He states he had injections of Toradol. Worse pain in his back and his spine does not support his upper body and he falls from side to side but no falls recently. Sister said issue with morphine and this was stopped. Moved from [place] in apr 2021 to be with son who has brain tumor. Ppt was never seen by a provider needed [place] pain management notes and did not offer medical management at this time. This note was written by an RN and it was just a call to the ppt. Awaiting notes from [place] pain management to go any further. Colonoscopy: ppt is unsure. I do not see anything in the last 5 years at [facility]. Will try to find if he has [...] for shingles vaccines, tdap, and flu in feuz2Hf:Mind: AxOx4 can be forgetful mild cognitive impairment [...] sometimes praveena related to [place] middle age bgspLfSs9DVNDCFiwytlf intact Pt has own teeth with no concerns Moist mucous membranesNo enlarged cervical lymph nodes, thyroid inspected with no nodules palpatedBilateral hand tremor restingLSCTA bilaterally Heart regular rate +s1 and +s2Abd soft, non tender, non distended, +ytv3Pksccw gait Skin intactFeet well taken care for, [...] - appt pending Prescriber - Candace Hastings ([facility])No questions or concerns he is doing so much better reports a family memberHX OF COCCAINE/OPIOID ABUSEDenies current useHTNMetoprololBP 104/70 todayLabs later DM w/ [id number] - 7% (04/2022)Foot exam?Metformin, lantus, HumalogDoes not [...] injections- pt cant go until records form [place] get to pain clinic-Pysch: referral in place- [...] pain be managed without addictive medications FATOU FUV Comments: Rogelio mo is a 56 year [...] elevation to paul feetOrdered CBC, CMP today Comments: Rogelio mo is a 56 year old male who is being seen today for a PHV. Pt was brought to [facility] on 01/25 for back pain. He received 3 injections (1 in each arm and one in his left leg per sister). Today pt continues to complain of back pain. Plan: Discussed trying voltaren gel which he was open to. Script sent. Pain clinic order is in place. Discussed talking w/ PT per family request. PHV Comments: Rogelio mo is a 56 [...] scaleEducated on referrals in placeAll questions answered. OV Comments: Rogelio mo is a 56 [...] the past 5 months. Ordered topical lidocaine. PEE Instructions Date Instruction Additional Infor juliana Pt had been diagnose d schizoaffective disorder bipolar type in his 30s when he was living in [place]. He reported his ex- determined he had [...] is a good support along with his anabaptist. -Currently denies any type of hallucinations or delusions. Denies wanting to hurt himself or anyone else. Denies SI. Both he and his sister feel he is the best he has been and in a stable place. Reports a little depressed as he wants to move to [place] but comes and goes. Follows with Candace Hastings [facility] for schizoaffective disorder bipolar type and used to follow with Jeremias Vizcarra but ppt was not happy with him. Last visit prior to 10/12/2023- no meds changes at that time. In past tried to get off trazadone and seroquel but pysch and worse irritatbilty and issues with sleep. -Continue: seroquel 100mg at bedtime cymbalta 90 mg daily went up on this in dec, trazodone 100 mg daily at hs, and [...] prnSW is working on getting ppt into [facility] therapyContinue to monitor Related to Schizoaffective disorder, [...] a good support and also Jehovah witness anabaptist. No longer doing drugs for some time [...] the same as well as sister (in [place])denies any current useusing non opioid alternatives for chronic pain with sucess like gabapentin and cymbalta Related to Opioid dependence in remission no seizure activityN a wnl at [facility] depokote 375 bid with valporic acid level [...] saw ppt a s endo provider through [facility] last apr 2022 most recently was seen [...] diabetes mellitus with diabetic polyneuropathy, unspecified whether fdc insulin use wants cpr but dni wh ich doesn't make sense but does not want to change anything. Ppt is his own person and educated.lives with sister who is hcp proxy and paid care givergoal [place] if had colonoscopy if [...] po lysommogram with cpap on 04/19/2022 at [facility] referred for non-restorative sleep. Found [...] notes from pts previous pain clinic in [facility].Pt does not want any aggressive measures nor wanting any narcotics d/t past hx of addition. Currently on cymbalta, gabapentin and voltaren, tylenol and recently went up on gabapentin. Reports pain controlled. Since pain clinic won't see him without [place] notes and unable to obtain and ppt reports controlled willl d/c referral ppt is okay with this. Related to Chronic bilateral low back pain without sciatica Chronic back pain r/ t multiple surgeries per pt. Pt has pain clinic referral though pain clinic is waiting for past notes from pts previous pain clinic in [facility].Pt does not want any aggressive measures nor wanting any narcotics d/t past hx of addition. Currently on cymbalta, gabapentin and voltaren, tylenol and recently went up on gabapentin. Reports pain controlled. Since pain clinic won't see him without [place] notes and unable to obtain and ppt reports controlled willl d/c referral ppt is okay with this. Related to Other chronic pain I have deterioratio n of my spine like my father he reported. He reports he had been getting monthly injections in his neck and spine. Last injection was in [place].Pt reports chronic pain in his back. He [...] placed but unable to get notes from [place] and wont' see him. Reports currently pain controlled and does not need referral. Related to Cervical disc disease 10/26/[address] Sanjay finley from [facility] due to ongoing tremors affecting quality [...] gait and speech at times. However admitted [facility] 09/04-09/08 for syncope found to have orthostasis [...] plan to do echo. Treadmill standard with [facility] on 09/2008 due to chest pain [...] result in this had admit to [facility] in aug for syncope, falls, dizziness found [...] pain and reported had injections monthly in [place]. He states he had injections of Toradol. Worse pain in his back and his spine does not support his upper body and he falls from side to side but no falls recently until today. Sister said issue with morphine and this was stopped. Moved from [place] in apr 2021 to be with son who has brain tumor. Ppt was never seen by a provider needed [place] pain management notes and did not offer medical management at this time. This note was written by an RN and it was just a call to the ppt. Awaiting notes from [place] pain management to go any further. on [...] po lysommogram with cpap on 04/19/2022 at [facility] referred for non-restorative sleep. Found [...] pain mangement but didn't have records from [facility] so wouldn't see him per pptneuro [...] opioids ie morphineppt enodrses the same (in [place])denies any current usewill re-eval for acute pain/surgical [...] saw ppt a s endo provider through [facility] last apr 2022 most recently was seen [...] do at end of month. 2022 labs [facility] Urine microalbumin neg, lipid panel 108/217/33/32, alc 8%, cr 1.1 and gfr 81. Lytes wnlgoal alc less than 7% and discussed microvascular and macrovascular complications of uncontrolled dm Related to Type 2 diabetes mellitus with diabetic polyneuropathy, unspecified whether terminologist insulin use has seen urology in past [...] notes from pts previous pain clinic in [facility].Pt does not want any aggressive measures nor [...] notes from pts previous pain clinic in [facility].Pt does not want any aggressive measures nor [...] pain and reported had injections monthly in [place]. He states he had injections of Toradol. Worse pain in his back and his spine does not support his upper body and he falls from side to side but no falls recently. Sister said issue with morphine and this was stopped. Moved from [place] in apr 2021 to be with son who has brain tumor. Ppt was never seen by a provider needed [place] pain management notes and did not offer medical management at this time. This note was written by an RN and it was just a call to the ppt. Awaiting notes from [place] pain management to go any further. on [...] po lysommogram with cpap on 04/19/2022 at [facility] referred for non-restorative sleep. Found [...] care givergoal [place] if had [place] if not due for oneno longer needs to see endo I can manage thatcontinue to follow with pysch Related to Healthcare maintenance bipolar well control led without symptoms just some mild sadness as he wants to move to [place] but reports he is happy most days [...] his 30s when he was living in [place]. He reported his ex- determined he had [...] depressed as he wants to move to [place] but comes and goes. -Continue: seroquel 100mg [...] dependance on opioidsppt enodrses the same (in [place])denies any current usewill re-eval for acute pain/surgical [...] exam benign except for decreased sensationref to seshpiwym3e and labs todayeval ongoing Related to terminologist (current) use of insulin last a1c 7.00using C GMsugars sometimes labile - may be d/t antipsychotic use continues on humalog, lantus, metforminfoot exam benign except for decreased sensationref to [id number] and labs todayeval ongoing Related to Type 2 diabetes mellitus with diabetic polyneuropathy, with long-term current use of insulin continues on STATIN lipid panel today Related to Hypercholesteremia AVSS No longer takin g lisinoprilCurrently taking metoprolol Related to Hypertension, unspecified type no current useno que stions or concerns from patient or family present Related to History of cocaine abuse cont cymbalta, seroq uel, trazodone, ziprasidone Related to senior living current use of antipsychotic medication bipolar well control led without symptoms [facility]ed [facility] for prescribingwaiting on an appt for therapy/counselingfamily present report he is doing very well (see HPI)cont cymbalta, seroquel, trazodone, ziprasidone Related to Bipolar 1 disorder No symptoms reported at this time. Followed [...] 06/25 w/ script sent to his pharmacy [facility]. He did not receive the medication nor notify [facility] until Tuesday that the pharmacy could not fill as they were out of stock . Ppt did tell [facility] he would be going back to [facility] for symptoms on 06/28/22 at [...] type, unspecified laterality, unspecified part of lung [facility] 05/29 Admitted for sepsis secondary to likely aspiration pneumonia in the setting of extrapyramidal symptoms from Antipsychotics. He was given ceftriaxone, doxycycline sepsis resolved and was discharged home on 7 more days of augmentin.Medication changes:Antipsychotics have been prescribed by Jeremias Vizcarra's office-Seroquel 100mg at bedtime-Depakote DR 375mg BID Related to terminologist current use of antipsychotic medication Pt reports [...] for medical records from pain clinic in [place] Related to Opioid dependence, in remission He is being seen by Sepideh hendrix [...] prescribed and managed by psych. Related to terminologist current use of antipsychotic medication Mild tremor noted. M inimal improvement w/ primidone. Pt and sister are concerned for Parkinson's (referral to neurology in place). Pt is on several psychiatric medications that could be the cause for the tremor. They are aware. Related to Essential tremor Chronic back pain r/ t multiple surgeries per pt. Pt has pain clinic referral though pain clinic is waiting for past notes from pts previous pain clinic in [facility].Pt does not want any aggressive measures nor [...] following up w/ neuro. Related to Seizure Pt had been diagnose d w/ bipolar and schizophrenia in his 30s when he was living in [place]. He reported his ex- determined he had [...] year. He is being seen by Sepideh hendrix [...] by psych. Related to Bipolar 1 disorder No symptoms reported at this time. Feels [...] by psych. Related to Schizophrenia, unspecified type 11/10 A1C: 8.2A1C kaley Benson had seen pt on 04/28/22 and made the following recommendations -Changed: insulin [id number]> 17unitsSTARTED lantus 24units in AMCONTINUE metformin 500mg BIDNeuropathy reported in paul feet; numbness and tingling.Abnormal monofilment exam, loss of protective sensation. Diabetic foot exam education. -Continue gabapentin-Education provided on new medications and daily feet checks. Related to Type 2 diabetes mellitus with diabetic polyneuropathy, unspecified whether terminologist insulin use Pt at first was brandon walker to [...] taking his medication from previous PCP in [place]). He had been referred to a therapist [...] (post-traumatic stress disorder) 11/10 A1C: 8.2A1C ord eredEndocrine had seen pt on 04/28/22 and made the following recommendations -Changed: insulin -007 [id number]> 17unitsSTARTED lantus 24units in AMCONTINUE metformin 500mg BID-Education provided on new medications and daily feet checks. Related to Current use of insulin 10/2021: Ratio- 3.1, TC-114, HDL-37, LDL-55, TG-138Lipid panel ordered.-Currently on crestor Related to Hypercholesteremia Pts BP was 104/76. N o longer taking lisinoprilCurrently taking metoprolol Related to Hypertension, unspecified type Needs 1 tooth extracted. Related to Extraction of tooth needed Neurology recommende d in lab diagnostic polysomnography Related to Obstructive sleep apnea PT eval Related to Other chronic pain eye exam referral Related to Typ e 2 diabetes mellitus with diabetic polyneuropathy, unspecified whether fdc insulin use Discussed during las t visit [...] a PHV . Pt was brought to [facility] on 01/25 for back pain. He received 3 injections (1 in each arm and one in his left leg per sister). Today pt continues to complain of back pain. Pt had been going to pain clinic when he was living in [place] and reported relief w/ injections.Plan: Discussed trying [...] Current use of insulin History of T2DM [facility] age 34 being treated w/ [...] diabetes mellitus with diabetic polyneuropathy, unspecified whether terminologist insulin use Denied cocaine abuse early in our conversation though then discussed cocaine use for a suicide attempt. -Has attempted suicide 2x in the past: cutting and cocaine overdose. Identifies his sister is a good support. Plan: drug screen Related to History of cocaine abuse History of T2DM [facility] age 34 being treated w/ [...] diabetes mellitus with diabetic polyneuropathy, unspecified whether fdc insulin use I have deterieratio n of my spine like my father . He reports he had been getting monthly injections in his neck and spine. Last injection was in [place] 5 months ago. Pt reports 8/10 pain [...] tremor has been noted since living in [place]. Treated w/ primidone.He is on several psychiatric medications which could be contributing. Related to Essential tremor Pt had been diagnose d w/ bipolar and schizophrenia in his 30s when he was living in [place]. He reported his ex- determined he had [...] taking his medication from previous PCP in [place]). He had been referred to a therapist [...] love feels like . He had seen psychiatrjazmin Vizcarra on 11/09/21 where he will be managing his medications (he had been taking his medication from previous PCP in [place]). He had been referred to a therapist [...] (post-traumatic stress disorder) He had seen psychiat risjone Vizcarra on 11/09/21 where he will be managing his medications (he had been taking his medication from previous PCP in [place]). -Continue: seroquel 200mg at bedtime ziprasidone 80mg at bedtime, fluoxetine 60mg daily, primodone 50mg daily, trazodone 10mg daily, and depakote 1000mg daily. -prescirbed and managed by psych; pt reports ziprasidone was increased but unsure of dose.11/10/21 EKG: normal; QT/QTC 406/418Ordered valporic acid level, primidone level Related to terminologist current use of antipsychotic medication Pt reports I had a seizure along time ago . No clarity on when this event took place. He is on depakote. Related to Seizure Pt had been diagnose d w/ bipolar and schizophrenia in his 30s when he was living in [place]. He reported his ex- determined he had [...] taking his medication from previous PCP in [place]). He had been referred to a therapist [...] of dose. Related to Schizophrenia, unspecified type ED treated w/ a IPP 10 years ago. He takes testosterone injections monthly though has not taken since leaving [place] 5 months ago. Discussed referring back to urology for guidance on the need to continue injections. Plan: refer to urology Related to Erectile dysfunction, unspecified erectile dysfunction type BP 114/60-Currently taking metoprolol and lisinopril Related to Hypertension, unspecified type Per preenrollment re cords. Lipid panel ordered.-Currently taking [id number] daily Related to Hypercholesteremia History of T2DM [...]
--- NOTE | 2025-05-20 13:18 | MHC.OFFVIS ---
Vital Signs 05/20/25 13:23 Height 5 ft 8 in Weight 160 lb BMI 24.3 Intake Visit Reasons: OV- Right lateral malleolus fx DOI 02/03/25 Intake Note: Dylan is a 59 year old male who presents today for a follow up of right lateral malleolus fracture, DOI 02/03/25. At last visit patient was transitioned to a walking boot, weight bearing as tolerated. He was referred to physical therapy and instructed to follow up in 6 weeks with x-rays. Patient reports mild pain with ambulation or twisting motions. However he is looking to come out of boot today. States his physical therapy was completed. Allergies No Known Allergies Allergy (Mild, Verified 05/20/25 13:23) NONE HPI HPI OV- Right lateral malleolus fx DOI 02/03/25: Details: 60-year-old gentleman returns to the office today for a follow-up right ankle fracture date of injury 02/03/2025. He states he has been wearing the boot but he does come out when he is in the house. He has some discomfort with ambulation and certain twisting motions. [facility] Medical History Cocaine abuse History of tobacco abuse History of alcohol abuse Penile lump Urinary incontinence GERD (gastroesophageal reflux disease) Osteoarthritis Injury of right hand Syncope Tremor of both hands Chronic low back pain Type 2 diabetes mellitus Depression Bipolar 1 disorder Schizophrenia Surgical History H/O cervical spine surgery Elbow joint replacement status Family History Mother HTN (hypertension) Diabetes Alzheimer disease Father Diabetes HTN (hypertension) Schizophrenia PVD (peripheral vascular disease) CAD (coronary artery disease) Bipolar 1 disorder Social History Household Members: Family Household Members Other:: sister Housing: Apartment Do you presently have visiting nurse or other home services: Yes Patient Tobacco Use Status: Former Tobacco user Advance Directives Date on File: 09/04/23 service: No Current occupational status: unemployed Review of Systems Const All systems reviewed & are unremarkable except as noted in HPI and below Physical Exam Vital Signs: BMI result Body Mass Index 24.3 Const General: cooperative and no acute distress Orientation/consciousness: patient oriented x3 Resp Effort & Inspection: normal respiratory effort and able to speak in complete sentences Cardio Peripheral pulses: Peripheral pulses 2+ throughout Neuro General: patient oriented x3 Extrem Other: Right ankle normal to inspection no swelling. Mild tenderness over the distal fibula. No tenderness over the syndesmosis. Pulses present sensation intact. Results Reviewed Results Reviewed: X-rays of the right ankle obtained in the office today and reviewed by me show a healing minimally displaced distal fibular fracture. Ankle mortise intact. Assessment & Plan Assessment & Plan (1) Fracture of right ankle, lateral malleolus: Code(s): S82.61XA - Displaced fracture of lateral malleolus of right fibula, initial encounter for closed fracture Category: Medical Plan: Patient is still experiencing mild discomfort over the fracture site which prompted me to continue with the boot weightbearing as tolerated for the next 4 weeks. Patient is content with this decision and we will see me back in 4 weeks with x-rays sooner if needed. Orders: Orders XR ankle RT min 3V 05/09/25 M25.571 - Pain in right ankle and joints of right foot XR ankle RT min 3V Today M25.571 - Pain in right ankle and joints of right foot Coding Level of Care Code Global (08496) Diagnoses Fracture of right ankle, lateral malleolus S82.61XA
[2025-05-20 13:23] VITALS: BMI 24.3
== END 2025-05-20 14:53 | disposition home or self-care (01) ==
LOC: HO.HOS 13:08
PROVIDERS: Visit Provider Physician Assistant
DX: S82.61XA Displaced fracture of lateral malleolus of right fibula, initial encounter for closed fracture (principal)
CPT/HCPCS: 99024

== ENCOUNTER → 2025-05-20 13:09 | Outpatient (BNV) | payer MEDICARE, MEDICAID, SELFPAY | PROVIDERS: Visit Provider Radiology Diagnostic Radiology | DX: M25.571 Pain in right ankle and joints of right foot (principal) | CPT/HCPCS: 73610 ==

== ENCOUNTER 2025-05-30 15:07 | Outpatient (AMB) | payer MEDICARE, MEDICAID, SELFPAY ==
--- NOTE | 2025-05-30 15:19 | A.OFFVIS_ITS ---
Intake Visit Reasons: bph/ Hx kidney stones Intake Note: New patient presents today for initial visit for BPH/Hx of kidney stones Urology Medication:None Blood Thinner:Aspirin Antibiotic Allergies:None PVR:92ml Allergies No Known Allergies Allergy (Mild, Verified 05/30/25 15:20) NONE Medication List - Last Reconciled 05/30/25 by Rafael Mirza MD acetaminophen ER 650 mg PO TID PRN alfuzosin ER 10 mg PO DAILY aspirin 81 mg PO DAILY divalproex 500 mg PO BID dulaglutide (Trulicity) 1.5 mg subcut TU duloxetine 60 mg PO DAILY enoxaparin (Lovenox) 40 mg subcut DAILY fluticasone propionate 50 mcg/actuation 1 spray intranasal BID PRN gabapentin 600 mg PO BID insulin glargine (Lantus Solostar U-100 Insulin) 15 units (0.15 mL) subcut BEDTIME insulin lispro 0 sliding scale doses subcut TIDAC metformin 850 mg PO BIDWM metoprolol succinate ER 50 mg PO BEDTIME midodrine 2.5 mg PO BID omeprazole 40 mg PO DAILY@0630 primidone 50 mg PO BEDTIME quetiapine 100 mg PO BEDTIME HPI Comments Details: History of Present Illness The patient is a 60-year-old male presenting with lower urinary tract symptoms and a history of kidney stones. The patient has a history of Benign Prostatic Hyperplasia, previously managed with tamsulosin, which he no longer takes. He reports difficulty urinating, characterized by a weak stream and the sensation of incomplete bladder emptying. A post-void residual urine volume of 92 mL was noted, indicating incomplete bladder emptying. The patient experienced kidney stones approximately two months ago while hospitalized for a leg fracture. He describes the pain associated with passing kidney stones as severe. The patient also reports erectile dysfunction, for which he has an inflatable penile prosthesis implanted over ten years ago. The prosthesis is functioning well, and he reports no issues with its operation. Results - PSA test in March: Normal - Post-void residual urine volume: 92 mL Plan 1. Benign Prostatic Hyperplasia, obstructive lower urinary tract symptoms - Order an ultrasound to evaluate the kidneys and bladder area. - follow-up office cystoscopy - Prescribe alfuzosin to improve urinary flow. 2. Kidney Stones - Monitor for any recurrence of symptoms. 3. Erectile Dysfunction -penile implant-patient reports working well PFSH Medical History Dysautonomia orthostatic hypotension syndrome Fracture of distal end of fibula Cocaine abuse History of tobacco abuse History of alcohol abuse Penile lump Urinary incontinence GERD (gastroesophageal reflux disease) Osteoarthritis Injury of right hand Syncope Tremor of both hands Chronic low back pain Type 2 diabetes mellitus Depression Bipolar 1 disorder Schizophrenia Surgical History H/O cervical spine surgery Elbow joint replacement status Family History Mother HTN (hypertension) Diabetes Alzheimer disease Father Diabetes HTN (hypertension) Schizophrenia PVD (peripheral vascular disease) CAD (coronary artery disease) Bipolar 1 disorder Social History Household Members: Family Household Members Other:: sister Housing: Apartment Do you presently have visiting nurse or other home services: Yes Patient Tobacco Use Status: Former Tobacco user Advance Directives Date on File: 09/04/23 service: No Current occupational status: unemployed Review of Systems Const All systems reviewed & are unremarkable except as noted in HPI and below Reports no additional complaints Eyes Reports no additional complaints ENT Reports no additional complaints Card Reports no additional complaints Resp Reports no additional complaints GI Reports no additional complaints Reports as per HPI Musc Reports no additional complaints Skin/Breast Reports system reviewed and no additional complaints, except as documented Neuro Reports no additional complaints Psych Reports no additional complaints Endo Reports no additional complaints Lopez/Lymph Reports no additional complaints Aller/Immun Reports no additional complaints Physical Exam Const General: healthy appearing, no acute distress and well developed Orientation/consciousness: patient oriented x3 HEENT Head: Yes normocephalic and Yes atraumatic Eyes Conjunctivae: conjunctivae normal Neck Neck: Yes normal visual inspection Chest Chest palpation & inspection: normal inspection of the chest Resp Effort & Inspection: normal respiratory effort GI Inspection: Yes normal to inspection Neuro General: patient oriented x3 Psych Appearance: grossly normal Affect: normal affect Assessment & Plan Assessment & Plan (1) Erectile dysfunction: Code(s): N52.9 - Male erectile dysfunction, unspecified Category: Medical (2) Slowing of urinary stream: Code(s): R39.198 - Other difficulties with micturition Category: Medical (3) BPH loc w urin obs/LUTS: Code(s): N40.1 - Benign prostatic hyperplasia with lower urinary tract symptoms Category: Medical Plan Plan 1. Benign Prostatic Hyperplasia, obstructive lower urinary tract symptoms - Order an ultrasound to evaluate the kidneys and bladder area. - follow-up office cystoscopy - Prescribe alfuzosin to improve urinary flow. 2. Kidney Stones - Monitor for any recurrence of symptoms. 3. Erectile Dysfunction -penile implant-patient reports working well Orders: Orders US retroperitoneal comp Today N40.1 - Benign prostatic hyperplasia with lower urinary tract symptoms, R39.198 - Other difficulties with micturition Medications: New alfuzosin ER administer after the same meal each day 10 mg PO DAILY 30 tabs 5RF Patient Instructions: The patient had an opportunity to ask questions regarding treatment plan. The patient expressed understanding and agreement with the above treatment plan. The patient is aware they should contact our office by phone for worsening of their current condition or the appearance of new symptoms. Compliance is encouraged with any medications and followup testing that is ordered. It is a privilege to be allowed the opportunity to participate in the urologic care of your patient. If you have any questions or concerns regarding treatment for the above conditions please do not hesitate to contact me. The office telephone contact is [phone]. This note is constructed in part using voice recognition software. While every effort has been made to ensure accuracy vocal music teacher errors may have been included. Yours sincerely, Rafael Mirza MD Scribe Plan - Not visible on output: Patient was informed and verbally consented to the use of an ambient scribe for clinic note documentation during this visit. Coding Level of Care Code New Pt Level 4 (67593) Diagnoses Erectile dysfunction N52.9 Slowing of urinary stream R39.198 BPH loc w urin obs/LUTS N40.1
== END 2025-05-30 16:00 | disposition home or self-care (01) ==
LOC: HO.HUSH 15:08
PROVIDERS: Visit Provider Urology
DX: N52.9 Male erectile dysfunction, unspecified (principal); N40.1 Benign prostatic hyperplasia with lower urinary tract symptoms; R39.198 Other difficulties with micturition
CPT/HCPCS: 99204

== ENCOUNTER → 2025-05-30 15:07 | Outpatient (BNVA) | payer MEDICARE, MEDICAID, SELFPAY | PROVIDERS: Visit Provider Urology | DX: N52.9 Male erectile dysfunction, unspecified (principal); N40.1 Benign prostatic hyperplasia with lower urinary tract symptoms; R39.198 Other difficulties with micturition; Z87.442 Personal history of urinary calculi | CPT/HCPCS: 99202 ==

== ENCOUNTER 2025-06-03 12:08 | Outpatient (AMB) | payer MEDICARE, MEDICAID, SELFPAY ==
--- OUTSIDE RECORDS SUMMARY | 2024-03-05 05:14 | XMS_ITS | Continuity of Care Document ---
Author Organization [facility] Address [address] [address] Phone Care Team Providers Care Ankle Patch Molder Name Role Phone Jer FREY, Ujjwala Unavailable [...] 08/31/2023 appt with psych amrit hastings from [facility] Lantus U-100 Insulin 100 unit/mL subcutaneous [...] Has been filled by Psych so far Casual Steps Bebe 2 Empire use to read blood sugar QID - Active Advance Directives Directive Yes / No Effective Date File Name No Information Encounters Encounter Description Practice Location Reason(s) For Visit Diagnoses Date Provider Critical access hospital, 1 [facility], [place], [place], [id number], [place] tel:[phone] [place] No Information Shreyas- 0-202 4 Jer Fletcherjjjanea. [address] [place], [place], [id number], [place]. tel:[phone] Critical access hospital, [address], [place], [place], [id number], [place] tel:[phone] [place] No Information January-2 4-202 4 Coon Ashlee. [address] [place], [place], [id number], [place]. tel:[phone] Critical access hospital, [address] [facility], [place], [place], [id number], [place] tel:[phone] [place] No Information January-2 3-202 4 Coon Ashlee. [address] [place], [place], [id number], [place]. tel:[phone] Critical access hospital, [address], [place], [place], [id number], [place] tel:[phone] [place] No Information Dec-3 0-202 4 Coon Ashlee. [address] [place], [place], [id number], [place]. tel:[phone] [facility], [place], [place], [id number], [place] tel:[phone] [place] No Information Dec-2 2-202 4 Coon Ashlee. [address] [place], [place], [id number], [place]. tel:[phone] Critical access hospital, [address], [place], [place], [id number], [place] tel:[phone] [place] No Information Dec-1 9-202 4 Coon Ashlee. [address] [place], [place], [id number], [place]. tel:[phone] Critical access hospital, [address], [place], [place], [id number], [place] tel:[phone] [place] No Information 4 Coon Ashlee. [address] [place], [id number], [place]. tel:[phone] [facility], [facility], [place], [place], [id number], [place] tel:[phone] [place] No Information 4 Pitsiladis Adelina. [address] [facility] [place] [place], [id number], [place]. tel:[phone] Critical access hospital, [address] [address], [place], [place], [id number], [place] tel:[phone] [place] No Information 4 Coon Ashlee. [address] [facility] [place], [id number], [place]. tel:[phone] Critical [facility] hospital, 1 [facility], [place], [place], [id number], [place] tel:[phone] [place] Encounter for nutritional assessmentDiabetic nutritional counseling completed 4 Normile Caitlin. [address] [facility] [place], [id number], [place]. tel:[phone] Critical access hospital, [address] [address], [place], [place], [address], [place] tel:[phone] [place] No Information 4 Coon Ashlee. [address] [facility] [place], [id number], [place]. tel:[phone] Critical access hospital, [address] [address], [place], [place], [id number], [place] tel:[phone] [place] Muscle weakness (generalized) b0 4 Brianna Leonarda. [address] [facility] [place], [id number], [place]. tel:[phone] Critical [facility] hospital, 1 [facility] [address], [place], [place], [id number], [place] tel:[phone] [place] Difficulty in walkin g, not elsewhere classified 4 [address] Caraballo. [address] [facility] [place], [id number], [place]. tel:[phone] Critical access hospital, 1 [facility], [place], [place], [id number], [place] tel:[phone] [place] Muscle weakness (generalized) 4 Brianna Brower. [address] [facility] [place], [address], [place]. tel:[phone] Critical access hospital, 1 [facility], [place], [place], [id number], [place] tel:[phone] [place] Encounter for rehabilitation evaluation 4 Brianna Brower. [address], [place], [place], [address], [place]. tel:[phone] Critical access hospital, 1 [facility] [address], [place], [place], [id number], [place] tel:[phone] [place] Semi-Annua l (chief complaint) cont (chief complaint) Type 2 diabetes mellitus with diabetic polyneuropathy, unspecified whether buttermaker insulin useCurrent use of insulinSeizureOpioid dependence in remissionHistory of cocaine abusePTSD (post-traumatic stress disorder)Schizoaffectiv e disorder, bipolar typeHypercholesteremiaH ypertension, unspecified typeOrthostatic hypotensionEssential tremorCervical disc diseaseChronic bilateral low back pain without sciaticaOther chronic painObstructive sleep apneaDysautonomiaMarietta Osteopathic Clinic care maintenance 4 Shaggy Rosado. [address] [place], [place], [id number], [place]. tel:[phone] Critical access hospital, 1 [facility] [address], [place], [place], [id number], [place] tel:[phone] [place] No Information 4 Coonbridgett Rosado. [address] [place], [place], [id number], [place]. tel:[phone] Critical access hospital, [address], [place], [place], [id number], [place] tel:[phone] [place] No Information 4 Jake Hoffman. [address] [place], [place], [address], [place]. tel:[phone] Critical access hospital, [address], [place], [place], [id number], [place] tel:[phone] [place] Difficulty in walkin g, not elsewhere classified [address] Caraballo. [address] [place], [place], [id number], [place]. tel:[phone] Critical access hospital, [address], [place], [place], [id number], [place] tel:[phone] [place] Difficulty in walkin g, not elsewhere classified [address] Caraballo. [address] [place], [place], [id number], [place]. tel:[phone] Critical access hospital, [address], [place], [place], [id number], [place] tel:[phone] [place] Encounter for rehabilitation evaluationDifficulty in walking, not elsewhere classified [address] Carablalo[address], [place], [place], [address], [place]. tel:[phone] Critical access hospital, [address], [place], [place], [id number], [place] tel:[phone] [place] No Information 3 Shaggy Rosado. [address] [place], [place], [id number], [place]. tel:[phone] Critical access hospital, [address], [place], [place], [id number], [place] tel:[phone] [place] Muscle weakness (generalized) Aug- 3 Court Caraballo. [address] [place], [place], [id number], [place]. tel:[phone] Critical access hospital, [address], [place], [place], [id number], [place] tel:[phone] [place] Other abnormalities of gait and mobility 3 [address] Caraballo. [address], [place], [place], [id number], [place]. tel:[phone] Critical access hospital, [address], [place], [place], [id number], [place] tel:[phone] [place] No Information 3 Shaggy Rosado. [address] [place], [place], [address], [place]. tel:[phone] Critical access hospital, [address], [place], [place], [id number], [place] tel:[phone] [place] No Information 3 Shaggy Rosado. [address] [place], [place], [id number], [place]. tel:[phone] Critical access hospital, [address], [place], [place], [id number], [place] tel:[phone] [place] Difficulty in walkin g, not elsewhere classified [address] Caraballo[address] [place], [place], [id number], [place]. tel:[phone] Critical access hospital, [address], [place], [place], [id number], [place] tel:[phone] [place] Difficulty in walkin g, not elsewhere classified [address] Caraballo[address] [place], [place], [address], [place]. tel:[phone] Critical access hospital, [address] [facility], [place], [place], [id number], [place] tel:[phone] [place] Acute Visit (chief complaint) Essential tremorObstructive sleep apneaOrthostatic hypotensionOther chronic pain 3 Shaggy Rosado. [address] [place], [place], [id number], [place]. tel:[phone] Critical access hospital, 1 [facility], [place], [place], [id number], [place] tel:[phone] [place] Difficulty in walkin g, not elsewhere classified [address]ab[address] [place], [place], [id number], [place]. tel:[phone] Critical access hospital, 1 [facility], [place], [place], [id number], [place] tel:[phone] [place] Difficulty in walkin g, not elsewhere classified [address] Rashmi[address] [place], [place], [address], [place]. tel:[phone] Critical access hospital, 1 [facility], [place], [place], [id number], [place] tel:[phone] [place] Encounter for rehabilitation evaluation 3 Court Rashmi. [address] [place], [place], [id number], [place]. tel:[phone] Critical access hospital, 1 [facility], [place], [place], [id number], [place] tel:[phone] [place] No Information 3 Danny Hodges. [address] [place], [place], [id number], [place]. tel:[phone] Critical access hospital, 1 [facility] [address], [place], [place], [id number], [place] tel:[phone] [place] Semi-Annua l (chief complaint) Schizophrenia, unspecified typeBipolar 1 disorderHealthcare maintenanceObstructive sleep apneaEssential tremorChronic pain syndromeCervical disc diseaseSeizureHyperchol esteremiaChronic bilateral low back pain, unspecified whether sciatica presentOther chronic painErectile dysfunction, unspecified erectile dysfunction typeUrinary incontinence, unspecified typeType 2 diabetes mellitus with diabetic polyneuropathy, unspecified whether buttermaker insulin useCurrent use of insulinPrimary hypertensionOpioid dependence in remissionHistory of cocaine abusePTSD (post-traumatic stress disorder) 3 Shaggy Rosado. [address] [facility] [address], [place], [place], [id number], [place]. tel:[phone] Critical [facility] hospital, [facility] [address], [place], [place], [id number], [place] tel:[phone] [place] Encounter for nutritional assessmentAt risk for inadequate oral intakeDiabetic nutritional counseling completed 3 Pelon Tucker. [address] [place], [place], [id number], [place]. tel:[phone] Critical access hospital, 1 [facility] [address], [place], [place], [id number], [place] tel:[phone] [place] Dorsalgia, unspecified 3 Bhagavatula Uclaricejwala. [address] [facility] [place], [place], [place], [id number], [place]. tel:[phone] Critical access hospital, 1 [facility], [place], [place], [address], [place] tel:[phone] [place] Encounter for genera l adult medical examination without abnormal findings 3 Robert Johnson. [address] [place], [place], [address], [place]. tel:[phone] Critical access hospital, [facility] [address] [address], [place], [place], [id number], [place] tel:[phone] [place] Type 2 diabetes mellitus with other skin complications 3 Bhagavatula Ujjwala. [address] [facility] [place], [address], [place]. tel:[phone] Critical access hospital, [address], [place], [place], [id number], [place] tel:[phone] [place] Other chest pain 3 Robert Johnson. [address] [place], [address], [place]. tel:[phone] Critical access hospital, 1 [facility] [address] [address], [place], [place], [address], [place] tel:[phone] [place] Encounter for nutritional assessmentDiabetes education, encounter forExcessive carbohydrate intakeAt risk for inadequate oral intake 3 Pelon Tucker. [address] [facility] [place], [address], [place]. tel:[phone] Critical access hospital, 1 [facility] [address], [place], [place], [id number], [place] tel:[phone] [place] Other chronic pain 3 Praneeth Cerna. [address] [facility] [address], [place], [place], [id number], [place]. tel:[phone] Critical access hospital, 1 [facility] [address] [facility], [place], [place], [id number], [place] tel:[phone] [place] Encounter for rehabilitation evaluation 3 Praneeth Cerna. [address] [facility] [place], [address], [place]. tel:[phone] Critical access hospital, [address], [place], [place], [address], [place] tel:[phone] [place] Encounter for rehabilitation evaluation 3 Jamshid Fregoso. [address] [facility] [place], [address], [place]. tel:[phone] Critical access hospital, [address], [place], [place], [id number], [place] tel:[phone] [place] FATOU (chief complaint) Schizophrenia, unspecified typeBipolar 1 disorderLong term current use of antipsychotic medicationHistory of cocaine abuseHypertension, unspecified typeHypercholesteremiaT ype 2 diabetes mellitus with diabetic polyneuropathy, with long-term current use of insulinLong term (current) use of insulinEssential tremorSeizureLong term (current) use of oral hypoglycemic drugsOpioid dependence, in remission 3 Robert Alex. [address] [place], [place], [id number], [place]. tel:[phone] Critical access hospital, 1 [facility] [address] [address], [place], [place], [id number], [place] tel:[phone] [place] No Information 2 Danny Hodges. [address] [place], [place], [id number], [place]. tel:[phone] Critical access hospital, 1 [facility] [address], [place], [place], [address], [place] tel:[phone] [place] Muscle weakness (generalized) 2 Kirsten Kip. [address] [place], [address]. tel:[phone] Critical access hospital, [address], [place], [place], [id number], [place] tel:[phone] [place] PHV (chief complaint) MCFP current use of antipsychotic medicationAspiration pneumonia, unspecified aspiration pneumonia type, unspecified laterality, unspecified part of lung 2 Os Crissy. [address] [place], [place], [id number], [place]. tel:[phone] Critical access hospital, 1 [facility] [address] [place] [address], [id number], [place] tel:[phone] [place] No Information 2 Danny Hodges. [address] [place], [place], [address], [place]. tel:[phone] Critical access hospital, 1 [facility] [address], [place], [place], [address], [place] tel:[phone] [place] Muscle weakness (generalized) 2 Kirsten Kip. [address] [place], [address]. tel:[phone] Critical access hospital, 1 [facility] [address], [place], [place], [id number], [place] tel:[phone] [place] Muscle weakness (generalized) 2 Kirsten Kip. [address] [place], [address]. tel:[phone] Critical access hospital, 1 [facility], [place], [id number], [place] tel:[phone] [place] No Information 2 Os Crissy. [address] [place], [id number], [place]. tel:[phone] Critical access hospital, 1 [facility], [place], [id number], [place] tel:[phone] [place] Hemiplegia and hemiparesis following unspecified cerebrovascular disease affecting right non-dominant sideMuscle weakness (generalized) 2 Kirsten Kip. [address] [place], [address]. tel:[phone] Critical access hospital, 1 [facility], [place], [place], [address], [place] tel:[phone] [place] Diabetes education, encounter forEncounter for nutritional assessmentExcessive carbohydrate intake 2 Normile Caitlin. [address] [place], [place], [address], [place]. tel:[phone] Critical access hospital, 1 [facility], [place], [place], [address], [place] tel:[phone] [place] FATOU (chief complaint) Hypertension, unspecified typeHypercholesteremiaC urrent use of insulinType 2 diabetes mellitus with diabetic polyneuropathy, unspecified whether buttermaker insulin useSchizophrenia, unspecified typeBipolar 1 disorderPTSD (post-traumatic stress disorder)MCFP current use of antipsychotic medicationBack pain, unspecified back location, unspecified back pain laterality, unspecified chronicitySeizureEssent ial tremorOpioid dependence, in remission 2 Os Crissy. [address] [place], [place], [id number], [place]. tel:[phone] Critical access hospital, 1 [facility], [place], [place], [id number], [place] tel:[phone] [place] Extraction of tooth needed 2 Os Crissy. [address] [place], [place], [address], [place]. tel:[phone] Critical access hospital, 1 [facility] [address] [facility], [place], [place], [id number], [place] tel:[phone] [place] Muscle weakness (generalized) 2 Kirsten Kip. [address] [place], [address]. tel:[phone] Critical access hospital, 1 [facility] [address] [facility], [place], [place], [id number], [place] tel:[phone] [place] Muscle weakness (generalized) 2 Kirsten Kip. [address], [place], [address]. tel:[phone] Critical access hospital, 1 [facility], [place], [place], [id number], [place] tel:[phone] [place] Obstructive sleep apnea 2 Os Crissy. [address] [place], [place], [id number], [place]. tel:[phone] Critical access hospital, 1 [facility] [address] [facility], [place], [place], [id number], [place] tel:[phone] [place] Difficulty in walkin g, not elsewhere classified 2 Kirsten Kip. [address] [place], [address]. tel:[phone] Critical access hospital, [facility] [address], [place], [place], [id number], [place] tel:[phone] [place] Other chronic pain 2 Danny Carroll. [address] [place], [id number], [place]. tel:[phone] [facility], [address] [facility] [address], [place], [id number], [place] tel:[phone] [place] Type 2 diabetes mellitus with diabetic polyneuropathy, unspecified whether care home insulin use 2 Os Crissy. [address] [place], [address], [place]. tel:[phone] Critical access hospital, 1 [facility] [address] [facility], [place], [address], [place] tel:[phone] [place] FUV (chief complaint) Edema, unspecified type 2 Os Crissy. [address] [place], [address], [place]. tel:[phone] Critical access hospital, 1 [facility], [place], [place], [address], [place] tel:[phone] [place] PHV (chief complaint) Back pain, unspecified back location, unspecified back pain laterality, unspecified chronicity 2 Os Crissy. [address] [place], [place], [address], [place]. tel:[phone] Critical access hospital, 1 [facility] [address], [place], [place], [id number], [place] tel:[phone] [place] OV (chief complaint) Current use of insulinFall, initial encounterType 2 diabetes mellitus without complication, with long-term current use of insulin 2 Os Crissy. [address] [place], [place], [address], [place]. tel:[phone] Critical access hospital, 1 [facility], [place], [address], [place] tel:[phone] [place] No Information 2 Os Crissy. [address] [place], [place], [address], [place]. tel:[phone] Critical access hospital, 1 [facility] [address], [place], [address], [place] tel:[phone] [place] Type 2 diabetes mellitus with diabetic polyneuropathy, unspecified whether care home insulin use 2 Os Crissy. [address] [place], [place], [address], [place]. tel:[phone] Critical access hospital, 1 [facility], [place], [place], [address], [place] tel:[phone] [place] Encounter for nutritional assessmentAbnormal weight lossDiabetes education, encounter for 2 Normile Caitlin. [address] [place], [place], [address], [place]. tel:[phone] Critical access hospital, 1 [facility] [address], [place], [place], [address], [place] tel:[phone] [place] PEE (chief complaint) Hypertension, unspecified typeHypercholesteremiaC urrent use of insulinErectile dysfunction, unspecified erectile dysfunction typeSchizophrenia, unspecified typeBipolar 1 disorderPTSD (post-traumatic stress disorder)MCFP current use of antipsychotic medicationSeizureCervic al disc diseaseChronic pain syndromeEssential tremorEncounter for general adult medical examination without abnormal findingsOpioid dependence, in remissionType 2 diabetes mellitus with diabetic polyneuropathy, unspecified whether buttermaker insulin useHistory of cocaine abuse 2 Os Crissy. [address] [place], [place], [address], [place]. tel:[phone] Critical access hospital, 1 [facility], [place], [place], [address], [place] tel:[phone] [place] Encounter for rehabilitation evaluation 2 Kirsten Shin. [address], [place], [address]. tel:[phone] Critical access hospital, 1 [facility] [address], [place], [address], [place] tel:[phone] [place] Encounter for rehabilitation evaluationDifficulty in walking, not elsewhere classifiedAlteration in performance of activities of daily living 2 Deirdre Garcia Zenobia Leonard. [address] [place], [place], [address]. tel:[phone] Critical access hospital, 1 [facility] [address], [place], [address], [place] tel:[phone] [place] Encounter for genera l adult medical examination without abnormal findings 2 Jeffrey Robins. [address], [place], [place], [address], [place]. tel:[phone] Critical access hospital, 1 [facility] [address] [facility], [place], [place], [address], [place] tel:[phone] [place] No Information 2 Aria Chambers. [address] [place], [address], [place]. tel:[phone] Family History Family Member Type Diagnosis Age At Onset Mother Problem Diabetes mellitus Father Problem Heart disease Immunizations Vaccine Date Status Comments Zoster recombinant subunit administered S ource: New Immunization Record Flu-IIV4, p-free administered Source: Ot er Registry COVID-19 Pfizer Bivalent 12y+ administere d Source: Other Registry Fluzone Quad administered [facility] e: New Immunization Record Prevnar 13 administered Source: New Imm unization Record Fluzone Quad [id number] administered Note: Got influenza vaccine same day as COVID ; Source: Other Registry COVID-19 (Pfizer) administered Source: Ot [facility] [place] Provider COVID-19 (Pfizer) administered Source: Ot her Provider Payers Payer name Insurance type Covered democrat ID Keiko berman(abiel) [facility] [id number] [facility] [id number] [facility] [id number] [facility] 16 [id number] Social History Type Description Quantity Date Captured Comments Sex Male Smoking Status No Information Chief Complaint And Reason For Visit No Information Plan Of Treatment Date Type Action Status Referral Ordered: Referrals: Neurology. Location: [facility] Appointment date/timeframe: 10/26/2023 ordered Referral Ordered: Referrals: Cardiology. Location: [facility]. Consult Appointment date/timeframe: 02/28/2024 ordered Referral Ordered: Referrals: Pain Medicine. Consult ordered Referral Ordered: Referrals: Gastroenterology Appointment date/timeframe: 03/08/2023 ordered Referral Ordered: Referrals: [facility]- Podiatry Location: [facility]. Evaluate and treat ordered Referral Ordered: Referrals: Podiatry Appointment date/timeframe: 11/29/2022 ordered Referral Ordered: Referrals: [employer] Appointment date/timeframe: 01/18/2023 ordered Referral Referred To: [...] 2D image, spectral Doppler, color flow image ([id number]), Ordered on: Ordered Future Order: Radiology Order Po lysomnography, 4+ add'l params ([id number]), Ordered on: Ordered History Of Present Illness Encounter Date Complaint History Of Prese nt Illness Semi-Annual Patient was seen today for their Semiannual at the office accompanied by sister who is paid prompt care rn. Marquise is known for cancelling or not showing up for appts and had cancelled this appt multiple times and had to be reminded the importance of coming into appts so we can take care of him. Marquise enrolled at in 10/2021. Marquise lives with his sister/paid prompt care rn and son who his sister and himself take care of in a first floor appt in [place]. The main goal of marquise and his sister is to move to [place] to the sunine and get away from the cold and meet up with family down there. This has been a goal for some time but has not come to fruition. The family will be going to [place] for 2 weeks of vacation and the [...] have orthostasis. No falls in last month. [facility] 09/04- presented for frequent falls at [...] rain, snow and wants to move to [place]. Intermittent chest pressure/burning and dizziness/sweating when going up or down the stairs that goes away when sitting down. Ppt being worked up by neuro and cards recent hospitalization for syncope and dizziness due to orthostasis. Worried about his tremors and worried has parkinsons saw neuro today. ADLs/services: Sister is paid prompt care rn and helps with meals, drives ppt to [...] this. Mental Health: Follows with Candace Hastings [facility] for schizoaffective disorder bipolar type and [...] has his own teeth and follows with [facility] dental last seen 05/16/2023 when he had a filling done however this was not scanned in. Denies issues with chewing or swallowing. Had a prior tooth extraction in may 2022. Currently no issues will assess follow up at next semi unless issues. Ophthalmology: Follows with [facility] seen 12/2022 ordered bifocals for presbyopia, age related cataracts bilateral not yet indicated for surgical intervention. Will need follow up at next semi. Cardiology: March 19, 2022 [facility] cardiology Dr. Banda for HTN had been [...] without regional wall motion.Endocrinology: I actually saw [facility] as endo provider through [facility] last apr 2022 most recently was seen on 04/18/2023 doesn't look to be much changes. He is on lantus 24 units daily and Humalog 7-17 units TID before meals. Ebbe to scan sugars. He is on metformin [...] : polysommogram with cpap on 04/19/2022 at [facility] referred for non-restorative sleep. Found [...] pain and reported had injections monthly in [place]. He states he had injections of Toradol. Worse pain in his back and his spine does not support his upper body and he falls from side to side but no falls recently. Sister said issue with morphine and this was stopped. Moved from [place] in apr 2021 to be with son who has brain tumor. Ppt was never seen by a provider needed [place] pain management notes and did not offer medical management at this time. This note was written by an RN and it was just a call to the ppt. Awaiting notes from [place] pain management to go any further. Currently [...] anything in the last 5 years at [facility]. Referral placed awaiting for colonoscopy. Dexa: Has [...] given shingles vaccines today and due for bfjr7Eo:Mind: AxOx4 can be forgetful mild cognitive impairment moca in 10/2021 not reflective of cognitive ability, very independantMeds: sister helps with meds but makes him do it while supervises so he knows how to do itMobility: independentMM: Ppt wants to move to [place] and is his main goal. ROSDenies fever [...] sometimes praveena related to not living in [place]. Does not like the cold. Does still [...] and +s2Abd soft, non tender, non distended, +mup3Daenno gait Skin intactFeet well taken care for, [...] no nystagmusMAE=strongLSCTA bilaterallyheart rate regular +s1 and +u2auanndfhd hand tremors moderate at rest and when [...] home accompanied by sister who is paid prompt care rn. We have made multiple attempts to get ppt to come into site and call but no one picked up. Discussed with paid prompt care rn that she needs to be available by phone. She checked her phone to make sure there was nothing wrong. She reported she never got any calls. We verified her number along with ppt. Ppt FATOU was due a week earlier but never showed up multiple times and then there was two provider changes. This is my first time meeting [facility] as new pcp. Ppt enrolled at in 10/2021. Ppt lives with his sister/paid prompt care rn and son in an first floor appt in [place]. HHN will be getting VS as not done today due to equipment errorNo recent hospitalization, SNFs or falls per ppt, collective and [facility] review in the last year.Complaints/concerns: No real concerns. Sister feels ppt is a little down however ppt reports he just wishes he was living in [place] and that is his goal. ADLs/services: Sister is paid prompt care rn and helps with meals, drives ppt to [...] has his own teeth and follows with [facility] dental last seen 05/16/2023 when he had a filling done. Denies issues with chewing or swallowing.Ophthalmology: Follows with [facility] seen 12/2022 ordered bifocals for presbyopia, age related cataracts bilateral not yet indicated for surgical intervention. Cardiology: March 19, 2022 [facility] cardiology Dr. Banda for HTN had been [...] actually saw ppt as endo provider through [facility] last apr 2022 most recently was seen [...] do at end of month. 2022 labs [facility] Urine microalbumin neg, lipid panel 108/217/33/32, alc 8%, cr 1.1 and gfr 81. Olvin wnlNlaisha diagnostic: polysommogram with cpap on 04/19/2022 at [facility] referred for non-restorative sleep. Found [...] pain and reported had injections monthly in [place]. He states he had injections of Toradol. Worse pain in his back and his spine does not support his upper body and he falls from side to side but no falls recently. Sister said issue with morphine and this was stopped. Moved from [place] in apr 2021 to be with son who has brain tumor. Ppt was never seen by a provider needed [place] pain management notes and did not offer medical management at this time. This note was written by an RN and it was just a call to the ppt. Awaiting notes from [place] pain management to go any further. Colonoscopy: ppt is unsure. I do not see anything in the last 5 years at [facility]. Will try to find if he has [...] for shingles vaccines, tdap, and flu in cckx5Ge:Mind: AxOx4 can be forgetful mild cognitive impairment [...] sometimes praveena related [place] middle age [id number] intact Pt has own teeth with no concerns Moist mucous membranesNo enlarged cervical lymph nodes, thyroid inspected with no nodules palpatedBilateral hand tremor restingLSCTA bilaterally Heart regular rate +s1 and +s2Abd soft, non tender, non distended, +jlj6Nnzqfa gait Skin intactFeet well taken care for, [...] - appt pending Prescriber - Candace Hastings ([facility])No questions or concerns he is doing so much better reports a family memberHX OF COCCAINE/OPIOID ABUSEDenies current useHTNMetoprololBP 104/70 todayLabs later DM w/ [id number] - 7% (04/2022)Foot exam?Metformin, lantus, HumalogDoes not [...] injections- pt cant go until records form [place] get to pain clinic-Pysch: referral in place- [...] elevation to paul feetOrdered CBC, CMP today PHV Comments: Rogelio mo is a 56 year old male who is being seen today for a PHV. Pt was brought to [facility] on 01/25 for back pain. He [...] his 30s when he was living in [place]. He reported his ex- determined he had [...] is a good support along with his buddhist. -Currently denies any type of hallucinations or delusions. Denies wanting to hurt himself or anyone else. Denies SI. Both he and his sister feel he is the best he has been and in a stable place. Reports a little depressed as he wants to move to [place] but comes and goes. Follows with Candace Hastings [facility] for schizoaffective disorder bipolar type and used [...] prnSW is working on getting ppt into [facility] therapyContinue to monitor Related to Schizoaffective disorder, [...] a good support and also Jehovah witness buddhist. No longer doing drugs for some time [...] the same as well as sister (in [place])denies any current useusing non opioid alternatives for chronic pain with sucess like gabapentin and cymbalta Related to Opioid dependence in remission no seizure activityN a wnl at [facility] depokote 375 bid with valporic acid level [...] saw ppt a s endo provider through [facility] last apr 2022 most recently was seen [...] diabetes mellitus with diabetic polyneuropathy, unspecified whether care home insulin use wants cpr but dni wh ich doesn't make sense but does not want to change anything. Ppt is his own person and educated.lives with sister who is hcp proxy and paid care givergoal [place] to [place] to [place] if had colonoscopy if [...] po lysommogram with cpap on 04/19/2022 at [facility] referred for non-restorative sleep. Found [...] from pts previous pain clinic in [facility].Pt does not want any aggressive measures nor wanting any narcotics d/t past hx of addition. Currently on cymbalta, gabapentin and voltaren, tylenol and recently went up on gabapentin. Reports pain controlled. Since pain clinic won't see him without [place] notes and unable to obtain and ppt reports controlled willl d/c referral ppt is okay with this. Related to Chronic bilateral low back pain without sciatica Chronic back pain r/ t multiple surgeries per pt. Pt has pain clinic referral though pain clinic is waiting for past notes from pts previous pain clinic in [facility].Pt does not want any aggressive measures nor wanting any narcotics d/t past hx of addition. Currently on cymbalta, gabapentin and voltaren, tylenol and recently went up on gabapentin. Reports pain controlled. Since pain clinic won't see him without [place] notes and unable to obtain and ppt reports controlled willl d/c referral ppt is okay with this. Related to Other chronic pain I have deterioratio n of my spine like my father he reported. He reports he had been getting monthly injections in his neck and spine. Last injection was in [place].Pt reports chronic pain in his back. He [...] placed but unable to get notes from [place] and wont' see him. Reports currently pain controlled and does not need referral. Related to Cervical disc disease 10/26/[address] Sanjay finley from [facility] due to ongoing tremors affecting quality [...] gait and speech at times. However admitted [facility] 09/04-09/08 for syncope found to have orthostasis [...] plan to do echo. Treadmill standard with [facility] on 09/2008 due to chest pain [...] can result in this had admit to [facility] for syncope, falls, dizziness found [...] pain and reported had injections monthly in [place]. He states he had injections of Toradol. Worse pain in his back and his spine does not support his upper body and he falls from side to side but no falls recently until today. Sister said issue with morphine and this was stopped. Moved from [place] in apr 2021 to be with son who has brain tumor. Ppt was never seen by a provider needed [place] pain management notes and did not offer medical management at this time. This note was written by an RN and it was just a call to the ppt. Awaiting notes from [place] pain management to go any further. on [...] po lysommogram with cpap on 04/19/2022 at [facility] referred for non-restorative sleep. Found [...] pain mangement but didn't have records from [facility] so wouldn't see him per pptneuro can [...] opioids ie morphineppt enodrses the same (in [place])denies any current usewill re-eval for acute pain/surgical [...] saw ppt a s endo provider [place] [facility] [place] apr 2022 most recently was seen [...] do at end of month. 2022 labs [facility] Urine microalbumin neg, lipid panel 108/217/33/32, alc 8%, cr 1.1 and gfr 81. Lytes wnlgoal alc less than 7% and discussed microvascular and macrovascular complications of uncontrolled dm Related to Type 2 diabetes mellitus with diabetic polyneuropathy, unspecified whether care home insulin use has seen urology in past [...] from pts previous pain clinic in [facility].Pt does not want any aggressive measures nor [...] from pts previous pain clinic in [facility].Pt does not want any aggressive measures nor [...] pain and reported had injections monthly in [place]. He states he had injections of Toradol. Worse pain in his back and his spine does not support his upper body and he falls from side to side but no falls recently. Sister said issue with morphine and this was stopped. Moved from [place] in apr 2021 to be with son who has brain tumor. Ppt was never seen by a provider needed [place] pain management notes and did not offer medical management at this time. This note was written by an RN and it was just a call to the ppt. Awaiting notes from [place] pain management to go any further. on [...] po lysommogram with cpap on 04/19/2022 at [facility] referred for non-restorative sleep. Found [...] care givergoal [place] if [place] if not due for oneno longer needs to see endo I can manage thatcontinue to follow with pysch Related to Healthcare maintenance bipolar well control led without symptoms just some mild sadness as he wants to move to [place] but reports he is happy most days [...] his 30s when he was living in [place]. He reported his ex- determined he had [...] depressed as he wants to move to [place] but comes and goes. -Continue: seroquel 100mg [...] dependance on opioidsppt enodrses the same (in [place])denies any current usewill re-eval for acute pain/surgical [...] exam benign except for decreased sensationref to zopewszdk7g and labs todayeval ongoing Related to Type 2 diabetes mellitus with diabetic polyneuropathy, with long-term current use of insulin last a1c 7.00using C GMsugars sometimes labile - may be d/t antipsychotic use continues on humalog, lantus, metforminfoot exam benign except for decreased sensationref to fgtncxcrs7i and labs todayeval ongoing Related to [facility] (current) use of insulin continues on STATIN [...] cymbalta, seroq uel, trazodone, ziprasidone 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 He did not receive the medication nor notify [facility] until Tuesday that the pharmacy could not fill as they were out of stock . Ppt did tell SE he would be going back to [facility] for symptoms on 06/28/22 at 4:15p. [...] type, unspecified laterality, unspecified part of lung [facility] 05/29 Admitted for sepsis secondary to likely aspiration pneumonia in the setting of extrapyramidal symptoms from Antipsychotics. He was given ceftriaxone, doxycycline sepsis resolved and was discharged home on 7 more days of augmentin.Medication changes:Antipsychotics have been prescribed by Jeremias Vizcarra's office-Seroquel 100mg at bedtime-Depakote DR 375mg BID Related to [facility] current use of antipsychotic medication Pt reports [...] for medical records from pain clinic in [place] Related to Opioid dependence, in remission He [...] prescribed and managed by psych. Related to [facility] current use of antipsychotic medication Mild tremor [...] from pts previous pain clinic in [facility].Pt does not want any aggressive measures nor wanting any narcotics d/t past hx of addition. He is agreeable to wait for pain clinic. Related to Back pain, unspecified back location, unspecified back pain laterality, unspecified chronicity Pt had been diagnose d w/ bipolar and schizophrenia in his 30s when he was living in [place]. He reported his ex- determined he had [...] and made the following recommendations -Changed: insulin [id number]> 17unitsSTARTED lantus 24units in AMCONTINUE metformin 500mg BIDNeuropathy reported in paul feet; numbness and tingling.Abnormal monofilment exam, loss of protective sensation. Diabetic foot exam education. -Continue gabapentin-Education provided on new medications and daily feet checks. Related to Type 2 diabetes mellitus with diabetic polyneuropathy, unspecified whether buttermaker insulin use Pt at first was brandon [...] taking his medication from previous PCP in [place]). He had been referred to a therapist [...] and made the following recommendations -Changed: insulin [id number]> 17unitsSTARTED lantus 24units in AMCONTINUE metformin 500mg [...] diabetes mellitus with diabetic polyneuropathy, unspecified whether care home insulin use Discussed during las t visit [...] a PHV . Pt was brought to [facility] on 01/25 for back pain. He received 3 injections (1 in each arm and one in his left leg per sister). Today pt continues to complain of back pain. Pt had been going to pain clinic when he was living in [place] and reported relief w/ injections.Plan: Discussed trying [...] diabetes mellitus with diabetic polyneuropathy, unspecified whether care home insulin use Denied cocaine abuse early in [...] diabetes mellitus with diabetic polyneuropathy, unspecified whether buttermaker insulin use I have deterieratio n of my spine like my father . He reports he had been getting monthly injections in his neck and spine. Last injection was in [place] 5 months ago. Pt reports 8/10 pain [...] tremor has been noted since living in [place]. Treated w/ primidone.He is on several psychiatric medications which could be contributing. Related to Essential tremor ED treated w/ a IPP 10 years ago. He takes testosterone injections monthly though has not taken since leaving [place] 5 months ago. Discussed referring back to urology for guidance on the need to continue injections. Plan: refer to urology Related to Erectile dysfunction, unspecified erectile dysfunction type Pt had been diagnose d w/ bipolar and schizophrenia in his 30s when he was living in [place]. He reported his ex- determined he had [...] taking his medication from previous PCP in [place]). He had been referred to a therapist [...] his 30s when he was living in [place]. He reported his ex- determined he had [...] taking his medication from previous PCP in [place]). He had been referred to a therapist [...] taking his medication from previous PCP in [place]). He had been referred to a therapist [...] taking his medication from previous PCP in [place]). -Continue: seroquel 200mg at bedtime ziprasidone 80mg at bedtime, fluoxetine 60mg daily, primodone 50mg daily, trazodone 10mg daily, and depakote 1000mg daily. 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 No clarity on when this event took place. He is on depakote. Related to Seizure BP 114/60-Currently taking metoprolol and lisinopril Related to Hypertension, unspecified type Per preenrollment re cords. Lipid panel ordered.-Currently taking arspdsm31iq daily Related to Hypercholesteremia History of T2DM [...]
--- NOTE | 2025-06-03 12:27 | MHC.OFFVIS ---
Intake Visit Reasons: Sz and tremors Allergies No Known Allergies Allergy (Mild, Verified 05/30/25 15:20) NONE Medication List - Last Reconciled 06/03/25 by Shaka Villalpando MD acetaminophen ER 650 mg PO TID PRN alfuzosin ER 10 mg PO DAILY aspirin 81 mg PO DAILY divalproex 500 mg PO BID dulaglutide (Trulicity) 1.5 mg subcut TU duloxetine 60 mg PO DAILY enoxaparin (Lovenox) 40 mg subcut DAILY fluticasone propionate 50 mcg/actuation 1 spray intranasal BID PRN gabapentin 600 mg PO BID insulin glargine (Lantus Solostar U-100 Insulin) 15 units (0.15 mL) subcut BEDTIME insulin lispro 0 sliding scale doses subcut TIDAC metformin 850 mg PO BIDWM metoprolol succinate ER 50 mg PO BEDTIME midodrine 2.5 mg PO BID omeprazole 40 mg PO DAILY@0630 primidone 50 mg PO BEDTIME quetiapine 100 mg PO BEDTIME HPI Comments Details: 60 yo man with h/o alcoholism, depression wtih psychotic features, diabetes, dysautonomia causing dizziness and orthostatic hypotension, and multifactorial tremor. He is presenting with tremor and mood disorder. He previously received permidone for tremors without improvement and was diagnosed with Parkinsonism attributed to psychiatric medications rather than Parkinson's disease itself. The patient's mood disorder treatment includes dapacort. Insomnia is a concern, managed with quetiapine. Urinary difficulties were noted, with reports of hesitancy in urination. [facility] Medical History Dysautonomia orthostatic hypotension syndrome Fracture of distal end of fibula Cocaine abuse History of tobacco abuse History of alcohol abuse Penile lump Urinary incontinence GERD (gastroesophageal reflux disease) Osteoarthritis Injury of right hand Syncope Tremor of both hands Chronic low back pain Type 2 diabetes mellitus Depression Bipolar 1 disorder Schizophrenia Surgical History H/O cervical spine surgery Elbow joint replacement status Family History Mother HTN (hypertension) Diabetes Alzheimer disease Father Diabetes HTN (hypertension) Schizophrenia PVD (peripheral vascular disease) CAD (coronary artery disease) Bipolar 1 disorder Social History Household Members: Family Household Members Other:: sister Housing: Apartment Do you presently have visiting nurse or other home services: Yes Patient Tobacco Use Status: Former Tobacco user Advance Directives Date on File: 09/04/23 service: No Current occupational status: unemployed Review of Systems Const Details: - Neurologic: Reports tremor. - Psychiatric: Reports difficulty sleeping. - Urologic: Reports urination difficulty, including hesitancy. Assessment & Plan Assessment & Plan (1) Peripheral neuropathy: Comment: EMG/NCS LEs at off in Oct 2023: Mild to mod axonal SM PN CT brain [place] [facility] [place]: Mod diff atrophy. 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, probably iatrogenic Rec: a: Benztropine is not tried due to his urinary difficulties b: Carbidopa/levodoap 25/100 one in am and noontime Medications: New carbidopa-levodopa 25-100 mg (Sinemet) 1 tab orally am and noontime; 60 tabs 1RF carbidopa-levodopa 25-100 mg (Sinemet) 1 tab orally am and noontime; 60 tabs 1RF Coding Level of Care Code Est Pt Level 4 (17685) Diagnoses Peripheral polyneuropathy G62.9 Peripheral neuropathy type: polyneuropathy, unspecified Tremor of both hands R25.1 Secondary parkinsonism, unspecified secondary Parkinsonism type G21.9 Parkinsonism type: secondary Parkinsonism Secondary Parkinsonism type: unspecified secondary
== END 2025-06-03 12:43 | disposition home or self-care (01) ==
LOC: HO.HSM 12:08
PROVIDERS: PCP Internal Medicine; Visit Provider Psychiatry & Neurology Neurology
DX: G62.9 Polyneuropathy, unspecified (principal); G21.9 Secondary parkinsonism, unspecified
CPT/HCPCS: 99214

== ENCOUNTER → 2025-06-03 12:08 | Outpatient (BNVA) | payer MEDICARE, MEDICAID, SELFPAY | PROVIDERS: PCP Internal Medicine; Visit Provider Psychiatry & Neurology Neurology | DX: G62.9 Polyneuropathy, unspecified (principal); R25.1 Tremor, unspecified; Z79.82 Long term (current) use of aspirin; Z87.891 Personal history of nicotine dependence; F10.20 Alcohol dependence, uncomplicated | CPT/HCPCS: 99212 ==

== ENCOUNTER 2025-06-20 11:17 | Outpatient (REF) | payer MEDICARE, MEDICAID, SELFPAY ==
--- OUTSIDE RECORDS SUMMARY | 2024-03-05 05:14 | XMS_ITS | Continuity of Care Document ---
Author Organization [facility] Address [address] [address] Phone Care Team Providers Care Informatics Coordinator Name Role Phone Jer FREY, Ujjwala Unavailable Unavaila ble Allergies, Adverse Reactions, Alerts Substance Reaction Status Criticality lactose GI Intolerance(mild) Active Low Medications Medication Instructions Dosage Effective Dates (start - stop) Status Comments metformin 500 mg tablet take 1 tablet by oral route 2 times every day with morning and evening meals 500 MG - Active FREESTYLE BEBE 2 SENSOR USE TO CHECK BLOOD SUGAR CHANGE EVERY 14 DAYS - Active rosuvastatin 40 mg tablet TAKE 1 TABLET BY MOUTH EVERY NIGHT - Active 30 day supply from old pcp then establishes with new pcp Cymbalta 30 mg capsule,delayed release INCREASED BY PSYCH: take 3 capsule (90 MG) by oral route every day - Active prescribed by psych INCREASED 08/31/2023 appt with psych amrit hastings from [facility] Lantus U-100 Insulin 100 unit/mL subcutaneous solution INJECT 24 UNITS UNDER THE SKIN DAILY IN THE MORNING - Active senna 8.6 mg tablet take 2 tablet by oral route every day 17.2 MG - Active Trulicity 1.5 mg/0.5 mL subcutaneous pen injector Inject 1.5mg once weekly on the same day. - Active DICLOFENAC GEL 1% APPLY 2 GRAM BY TOPICAL ROUTE 2 TIMES EVERY DAY TO THE AFFECTED AREA(S) 2 gram Mar-11-2024 - Active primidone 50 mg tablet SCRIPT BY NEURO take 1 tablet by oral route every day - Active started by neuro 10/26/2023 for tremors BiPap machine INHALATION per recs autobipap with EAP min 10, PS 5, IPAP max 23 cm h20 to start at night or with naps. E0601, MASK A7030, TUBING A7032, HUMIDIFICATION E0562 - Active gabapentin 300 mg capsule take 2 capsule by oral route BID - Active fludrocortisone 0.1 mg tablet take 2 tablet by oral route every day in am - Active orthostasis Seroquel 100 mg tablet take 1 tablet by oral route every day 100 MG - Active aspirin 81 mg ORAL TABLET take 1 tablet by oral route every day - Active Depakote Sprinkles 125 mg capsule,delayed release take 3 capsule by oral route 2 times every day and sprinkle entire contents on a small amount (teaspoonful) of soft food and take 375 MG - Active rx-psych Humalog KwikPen (U-100) Insulin 100 unit/mL subcutaneous inject by subcutaneous route see sliding scale - Active Dose CHANGE. sliding scale per endocraine (CHANGE); 90-150 7U, 151-200 9u, 201-250 11U, 251-300 13U, 301-350 15U, greater than 351 17U Tylenol Arthritis Pain 650 mg tablet,extended release TAKE 1 TABLET BY MOUTH EVERY 8 HOURS NEEDED. SWALLOW WHOLE WITH WATER, DO NOT BREAK OR CRUSH, DISSOLVE OR CHEW 650 MG - Active pen needle, diabetic 31 gauge x 3/16 use with insulin administration - Active trazodone 100 mg tablet take 1 tablet by oral route every bedtime 100 MG - Active Has been filled by Psych so far [facility] Bebe 2 [place] use to read blood sugar QID - Active Advance Directives Directive Yes / No Effective Date File Name No Information Encounters Encounter Description Practice Location Reason(s) For Visit Diagnoses Date Provider [facility], [address] [facility] [address], [place], [place], [id number], [place] tel:[phone] [place] No Information Shreyas- 0-202 4 Jer Fletcherjjjanea. [address] [place], [place], [id number], [place]. tel:[phone] [facility], [address], [place], [place], [id number], [place] tel:[phone] [place] No Information January-2 4-202 4 Coon Ashlee. [address] [place], [place], [id number], [place]. tel:[phone] [facility], [address] [facility], [place], [place], [id number], [place] tel:[phone] [place] No Information January-2 3-202 4 Coon Ashlee. [address] [place], [place], [address], [place]. tel:[phone] [facility], [address], [place], [place], [id number], [place] tel:[phone] [place] No Information Dec-3 0-202 4 Coon Ashlee. [address] [place], [place], [id number], [place]. tel:[phone] [facility], 1 [facility], [place], [place], [id number], [place] tel:[phone] [place] No Information Dec-2 2-202 4 Coon Ashlee. [address] [place], [place], [id number], [place]. tel:[phone] [facility], [address], [place], [place], [address], [place] tel:[phone] [place] No Information Dec-1 9-202 4 Coon Ashlee. [address] [place], [place], [id number], [place]. tel:[phone] [facility], [address], [place], [place], [address], [place] tel:[phone] [place] No Information 4 Coon Ashlee. [address] [place], [id number], [place]. tel:[phone] [facility], [place], [place], [id number], [place] tel:[phone] [place] No Information 4 Pitsiladis Adelina. [address] [facility], [address], [place]. tel:[phone] [facility], [address] [address], [place], [place], [id number], [place] tel:[phone] [place] No Information 4 Coon Ashlee. 101 [facility] [place], [id number], [place]. tel:[phone] [facility], [facility], [place], [place], [address], [place] tel:[phone] [place] Encounter for nutritional assessmentDiabetic nutritional counseling completed 4 Normile Caitlin. [address] [facility] [place], [id number], [place]. tel:[phone] [facility], [address] [address], [place], [place], [address], [place] tel:[phone] [place] No Information 4 Coon Ashlee. [address] [facility] [place], [address], [place]. tel:[phone] [facility], [address] [address], [place], [place], [address], [place] tel:[phone] [place] Muscle weakness (generalized) b0 4 Brianna Leonarda. 101 [facility] [place], [address], [place]. tel:[phone] [facility], [facility] [address], [place], [place], [id number], [place] tel:[phone] [place] Difficulty in walkin g, not elsewhere classified 4 [address] Caraballo. [address] [facility] [place], [address], [place]. tel:[phone] [facility], [facility], [place], [place], [address], [place] tel:[phone] [place] Muscle weakness (generalized) 4 Brianna Brower. 101 [facility] [place], [address], [place]. tel:[phone] [facility], [facility], [place], [place], [address], [place] tel:[phone] [place] Encounter for rehabilitation evaluation 4 Brianna Brower. [address], [place], [place], [address], [place]. tel:[phone] [facility], [facility], [place], [place], [address], [place] tel:[phone] [place] Semi-Annua l (chief complaint) cont (chief complaint) Type 2 diabetes mellitus with diabetic polyneuropathy, unspecified whether senior care insulin useCurrent use of insulinSeizureOpioid dependence in remissionHistory of cocaine abusePTSD (post-traumatic stress disorder)Schizoaffectiv e disorder, bipolar typeHypercholesteremiaH ypertension, unspecified typeOrthostatic hypotensionEssential tremorCervical disc diseaseChronic bilateral low back pain without sciaticaOther chronic painObstructive sleep apneaDysautonomiaCleveland Clinic [facility] care maintenance 4 Shaggy Rosado. [address] [place], [place], [address], [place]. tel:[phone] [facility], 1 [facility], [place], [place], [address], [place] tel:[phone] [place] No Information 4 Coonbridgett Rosado. [address] [place], [place], [address], [place]. tel:[phone] [facility], [address], [place], [place], [address], [place] tel:[phone] [place] No Information 4 Jake Hoffman. [address] [place], [place], [id number], [place]. tel:[phone] [facility], [address], [place], [place], [address], [place] tel:[phone] [place] Difficulty in walkin g, not elsewhere classified [address] Court Caraballo. [address] [place], [place], [address], [place]. tel:[phone] [facility], [address], [place], [place], [id number], [place] tel:[phone] [place] Difficulty in walkin g, not elsewhere classified 4 Court Caraballo. [address] [place], [place], [address], [place]. tel:[phone] [facility], [address], [place], [place], [address], [place] tel:[phone] [place] Encounter for rehabilitation evaluationDifficulty in walking, not elsewhere classified 3 Court Caraballo. [address], [place], [place], [id number], [place]. tel:[phone] [facility], [address], [place], [place], [address], [place] tel:[phone] [place] No Information 3 Shaggy Rosado. [address] [place], [place], [id number], [place]. tel:[phone] [facility], [address], [place], [place], [address], [place] tel:[phone] [place] Muscle weakness (generalized) Aug- 3 Court Caraballo. [address] [place], [place], [id number], [place]. tel:[phone] [facility], [address], [place], [place], [address], [place] tel:[phone] [place] Other abnormalities of gait and mobility 3 Court Caraballo. [address], [place], [place], [id number], [place]. tel:[phone] [facility], [address], [place], [place], [address], [place] tel:[phone] [place] No Information 3 Shaggy Rosado. [address] [place], [place], [address], [place]. tel:[phone] [facility], [address], [place], [place], [address], [place] tel:[phone] [place] No Information 3 Shaggy Rosado. [address] [place], [place], [address], [place]. tel:[phone] [facility], [address], [place], [place], [address], [place] tel:[phone] [place] Difficulty in walkin g, not elsewhere classified [address] Caraballo. [address] [place], [place], [address], [place]. tel:[phone] [facility], [address], [place], [place], [address], [place] tel:[phone] [place] Difficulty in walkin g, not elsewhere classified [address] Caraballo. [address] [place], [place], [address], [place]. tel:[phone] [facility], [address] [facility], [place], [place], [address], [place] tel:[phone] [place] Acute Visit (chief complaint) Essential tremorObstructive sleep apneaOrthostatic hypotensionOther chronic pain 3 Shaggy Rosado. [address] [place], [place], [id number], [place]. tel:[phone] [facility], [facility], [place], [place], [id number], [place] tel:[phone] [place] Difficulty in walkin g, not elsewhere classified 3 [address] Caraballo[address] [place], [place], [id number], [place]. tel:[phone] [facility], [facility], [place], [place], [id number], [place] tel:[phone] [place] Difficulty in walkin g, not elsewhere classified [address] Rashmi[address] [place], [place], [address], [place]. tel:[phone] [facility], [facility], [place], [place], [address], [place] tel:[phone] [place] Encounter for rehabilitation evaluation 3 Court Rashmi. [address] [place], [place], [id number], [place]. tel:[phone] [facility], [facility], [place], [place], [address], [place] tel:[phone] [place] No Information 3 Danny Hodges. [address] [place], [place], [id number], [place]. tel:[phone] [facility], [facility] [address], [place], [place], [id number], [place] tel:[phone] [place] Semi-Annua l (chief complaint) Schizophrenia, unspecified typeBipolar 1 disorderHealthcare maintenanceObstructive sleep apneaEssential tremorChronic pain syndromeCervical disc diseaseSeizureHyperchol esteremiaChronic bilateral low back pain, unspecified whether sciatica presentOther chronic painErectile dysfunction, unspecified erectile dysfunction typeUrinary incontinence, unspecified typeType 2 diabetes mellitus with diabetic polyneuropathy, unspecified whether senior care insulin useCurrent use of insulinPrimary hypertensionOpioid dependence in remissionHistory of cocaine abusePTSD (post-traumatic stress disorder) 3 Shaggy Rosado. [address] [facility] [address], [place], [place], [address], [place]. tel:[phone] [facility], 1 [facility] [address], [place], [place], [id number], [place] tel:[phone] [place] Encounter for nutritional assessmentAt risk for inadequate oral intakeDiabetic nutritional counseling completed 3 Pelon Tucker. [address] [place], [place], [id number], [place]. tel:[phone] [facility], 1 [facility], [place], [place], [address], [place] tel:[phone] [place] Dorsalgia, unspecified 3 Bhagavatula Uclaricejwala. [address] [facility] [address], [place], [place], [address], [place]. tel:[phone] [facility], 1 [facility], [place], [place], [address], [place] tel:[phone] [place] Encounter for genera l adult medical examination without abnormal findings 3 Robert Johnson. [address] [place], [place], [id number], [place]. tel:[phone] [facility], 1 [facility] [address], [place], [place], [id number], [place] tel:[phone] [place] Type 2 diabetes mellitus with other skin complications 3 Bhagavatula Ujjwala. 101 [facility] [place], [address], [place]. tel:[phone] [facility], [address], [place], [place], [address], [place] tel:[phone] [place] Other chest pain 3 Robert Johnson. [address] [place], [place], [address], [place]. tel:[phone] [facility], 1 [facility] [address], [place], [place], [address], [place] tel:[phone] [place] Encounter for nutritional assessmentDiabetes education, encounter forExcessive carbohydrate intakeAt risk for inadequate oral intake 3 Pelon Tucker. 101 [facility] [place], [address], [place]. tel:[phone] [facility], 1 [facility] [address], [place], [place], [id number], [place] tel:[phone] [place] Other chronic pain 3 Praneeth Cerna. [address] [facility] [address], [place], [place], [address], [place]. tel:[phone] [facility], 1 [facility], [place], [place], [address], [place] tel:[phone] [place] Encounter for rehabilitation evaluation 3 Praneeth Cerna. 101 [facility] [place], [address], [place]. tel:[phone] [facility], [address], [place], [place], [address], [place] tel:[phone] [place] Encounter for rehabilitation evaluation 3 Jamshid Fregoso. 101 [facility] [place], [address], [place]. tel:[phone] [facility], [address], [place], [place], [address], [place] tel:[phone] [place] FATOU (chief complaint) Schizophrenia, unspecified typeBipolar 1 disorderLong term current use of antipsychotic medicationHistory of cocaine abuseHypertension, unspecified typeHypercholesteremiaT ype 2 diabetes mellitus with diabetic polyneuropathy, with long-term current use of insulinLong term (current) use of insulinEssential tremorSeizureLong term (current) use of oral hypoglycemic drugsOpioid dependence, in remission 3 Robert Alex. [address] [place], [place], [address], [place]. tel:[phone] [facility], 1 [facility] [address], [place], [place], [address], [place] tel:[phone] [place] No Information 2 Danny Hodges. [address] [place], [place], [id number], [place]. tel:[phone] [facility], 1 [facility], [place], [place], [address], [place] tel:[phone] [place] Muscle weakness (generalized) 2 Kirsten Kip. [address] [place], [address]. tel:[phone] [facility], [address], [place], [place], [address], [place] tel:[phone] [place] PHV (chief complaint) penitentiary current use of antipsychotic medicationAspiration pneumonia, unspecified aspiration pneumonia type, unspecified laterality, unspecified part of lung 2 Os Crissy. [address] [place], [place], [id number], [place]. tel:[phone] [facility], 1 [facility] [address] [place] [address], [id number], [place] tel:[phone] [place] No Information 2 Danny Hodges. [address] [place], [place], [id number], [place]. tel:[phone] [facility], 1 [facility], [place], [place], [address], [place] tel:[phone] [place] Muscle weakness (generalized) 2 Kirsten Kip. [address] [place], [address]. tel:[phone] [facility], 1 [facility], [place], [place], [id number], [place] tel:[phone] [place] Muscle weakness (generalized) 2 Kirsten Kip. [address] [place], [address]. tel:[phone] [facility], [facility], [place], [place], [address], [place] tel:[phone] [place] No Information 2 Os Crissy. [address] [place], [place], [address], [place]. tel:[phone] [facility], [facility], [place], [place], [address], [place] tel:[phone] [place] Hemiplegia and hemiparesis following unspecified cerebrovascular disease affecting right non-dominant sideMuscle weakness (generalized) 2 Kirsten Kip. [address] [place], [address]. tel:[phone] [facility], [facility], [place], [place], [address], [place] tel:[phone] [place] Diabetes education, encounter forEncounter for nutritional assessmentExcessive carbohydrate intake 2 Normile Caitlin. [address] [place], [place], [address], [place]. tel:[phone] [facility], [facility], [place], [place], [address], [place] tel:[phone] [place] FATOU (chief complaint) Hypertension, unspecified typeHypercholesteremiaC urrent use of insulinType 2 diabetes mellitus with diabetic polyneuropathy, unspecified whether tank terminal gauger insulin useSchizophrenia, unspecified typeBipolar 1 disorderPTSD (post-traumatic stress disorder)penitentiary current use of antipsychotic medicationBack pain, unspecified back location, unspecified back pain laterality, unspecified chronicitySeizureEssent ial tremorOpioid dependence, in remission 2 Os Crissy. [address] [place], [place], [address], [place]. tel:[phone] [facility], [facility], [place], [place], [address], [place] tel:[phone] [place] Extraction of tooth needed 2 Os Crissy. [address] [place], [place], [address], [place]. tel:[phone] [facility], 1 [facility], [place], [place], [address], [place] tel:[phone] [place] Muscle weakness (generalized) 2 Kirsten Kip. [address] [place], [address]. tel:[phone] [facility], 1 [facility], [place], [place], [address], [place] tel:[phone] [place] Muscle weakness (generalized) 2 Kirsten Kip. [address], [place], [address]. tel:[phone] [facility], [facility], [place], [place], [address], [place] tel:[phone] [place] Obstructive sleep apnea 2 Os Crissy. [address] [place], [place], [address], [place]. tel:[phone] [facility], 1 [facility], [place], [place], [address], [place] tel:[phone] [place] Difficulty in walkin g, not elsewhere classified 2 Kirsten Kip. [address] [place], [address]. tel:[phone] [facility], 1 [facility] [facility], [place], [place], [address], [place] tel:[phone] [place] Other chronic pain 2 Danny Carroll. [address] [place], [address], [place]. tel:[phone] [facility], 1 [facility], [place], [place], [address], [place] tel:[phone] [place] Type 2 diabetes mellitus with diabetic polyneuropathy, unspecified whether senior care insulin use 2 Os Crissy. [address] [place], [address], [place]. tel:[phone] [facility], 1 [facility], [place], [place], [address], [place] tel:[phone] [place] FUV (chief complaint) Edema, unspecified type 2 Os Crissy. [address] [place], [place], [address], [place]. tel:[phone] [facility], [facility], [place], [place], [address], [place] tel:[phone] [place] PHV (chief complaint) Back pain, unspecified back location, unspecified back pain laterality, unspecified chronicity 2 Os Crissy. [address] [place], [place], [address], [place]. tel:[phone] [facility], 1 [facility], [place], [place], [address], [place] tel:[phone] [place] OV (chief complaint) Current use of insulinFall, initial encounterType 2 diabetes mellitus without complication, with long-term current use of insulin 2 Os Crissy. [address] [place], [place], [address], [place]. tel:[phone] [facility], 1 [facility], [place], [place], [address], [place] tel:[phone] [place] No Information 2 Os Crissy. [address] [place], [place], [address], [place]. tel:[phone] [facility], 1 [facility], [place], [place], [address], [place] tel:[phone] [place] Type 2 diabetes mellitus with diabetic polyneuropathy, unspecified whether senior care insulin use 2 Os Crissy. [address] [place], [place], [id number], [place]. tel:[phone] [facility], [facility], [place], [place], [id number], [place] tel:[phone] [place] Encounter for nutritional assessmentAbnormal weight lossDiabetes education, encounter for 2 Normile Caitlin. [address] [place], [place], [id number], [place]. tel:[phone] [facility], 1 [facility] [address], [place], [place], [id number], [place] tel:[phone] [place] PEE (chief complaint) Hypertension, unspecified typeHypercholesteremiaC urrent use of insulinErectile dysfunction, unspecified erectile dysfunction typeSchizophrenia, unspecified typeBipolar 1 disorderPTSD (post-traumatic stress disorder)penitentiary current use of antipsychotic medicationSeizureCervic al disc diseaseChronic pain syndromeEssential tremorEncounter for general adult medical examination without abnormal findingsOpioid dependence, in remissionType 2 diabetes mellitus with diabetic polyneuropathy, unspecified whether tank terminal gauger insulin useHistory of cocaine abuse 2 Os Crissy. [address] [place], [place], [id number], [place]. tel:[phone] [facility], [facility] [address] [place], [place], [id number], [place] tel:[phone] [place] Encounter for rehabilitation evaluation 2 Kirsten Shin. [address], [place], [address]. tel:[phone] [facility], 1 [facility] [address] [facility], [place], [place], [id number], [place] tel:[phone] [place] Encounter for rehabilitation evaluationDifficulty in walking, not elsewhere classifiedAlteration in performance of activities of daily living 2 Deirdre Garcia Zenobia Leonard. [address] [place], [place], [id number]. tel:[phone] [facility], 1 [facility] [address] [facility], [place], [place], [id number], [place] tel:[phone] [place] Encounter for genera l adult medical examination without abnormal findings 2 Jeffrey Robins. [address], [place], [place], [id number], [place]. tel:[phone] [facility], 1 [facility] [address], [place], [place], [id number], [place] tel:[phone] [place] No Information 2 Aria Chambers. [address] [place], [address], [place]. tel:[phone] Family History Family Member Type Diagnosis Age At Onset Mother Problem Diabetes mellitus Father Problem Heart disease Immunizations Vaccine Date Status Comments Zoster recombinant subunit administered S ource: New Immunization Record Flu-IIV4, p-free administered Source: Ot er Registry COVID-19 Pfizer Bivalent 12y+ administere d Source: Other Registry Fluzone Quad administered [facility] e: New Immunization Record Prevnar 13 administered Source: New Imm unization Record Fluzone Quad [id number] administered Note: Got influenza vaccine same day as COVID ; Source: Other Registry COVID-19 (Pfizer) administered Source: Ot [facility] Provider COVID-19 (Pfizer) administered Source: Ot her Provider Payers Payer name Insurance type Covered democrat ID Keiko bemran(abiel) [facility] 16 [id number] [facility] 16 [id number] [facility] 16 [id number] [facility] 16 [id number] Social History Type Description Quantity Date Captured Comments Sex Male Smoking Status No Information Chief Complaint And Reason For Visit No Information Plan Of Treatment Date Type Action Status Referral Ordered: Referrals: Neurology. Location: [facility] Appointment date/timeframe: 10/26/2023 ordered Referral Ordered: Referrals: Cardiology. Location: [facility]. Consult Appointment date/timeframe: 02/28/2024 ordered Referral Ordered: Referrals: Pain Medicine. Consult ordered Referral Ordered: Referrals: Gastroenterology Appointment date/timeframe: 03/08/2023 ordered Referral Ordered: Referrals: [facility] Location: [facility]. Evaluate and treat ordered Referral Ordered: Referrals: Podiatry Appointment date/timeframe: 11/29/2022 ordered Referral Ordered: Referrals: Editorial Director Appointment date/timeframe: 01/18/2023 ordered Referral Referred To: Physical Therapy Ordered: Referrals: Physical Therapy ordered Referral Ordered: Referrals: Dentistry Appointment date/timeframe: 01/27/2022 ordered Referral Ordered: Referrals: Ophthalmology ordered Referral Ordered: Referrals: Endocrinology, Diabetes and Metabolism Appointment date/timeframe: 04/28/2022 ordered Referral Ordered: Referrals: Urology ordered Referral Ordered: Referrals: Neurology Appointment date/timeframe: 01/21/2023 ordered Referral Ordered: Referrals: Cardiology Appointment date/timeframe: 03/19/2022 ordered Referral Ordered: COLONOSCOPY AND BIOPSY Appointment date/timeframe: 12/21/2022 ordered Referral Ordered: Referrals: Sleep Study Appointment date/timeframe: 04/06/2022 ordered Referral Ordered: Referrals: Psychiatry ordered Referral Ordered: Referrals: Pain Medicine Appointment date/timeframe: 02/25/2022 ordered Future Order: Radiology Order EC G, 12 lead, init preventive screening, tracing only ([id number]), Ordered on: Ordered Future Order: Radiology Order TT E Combined, 2D image, spectral Doppler, color flow image ([id number]), Ordered on: Ordered Future Order: Radiology Order Po lysomnography, 4+ add'l params ([id number]), Ordered on: Ordered History Of Present Illness Encounter Date Complaint History Of Prese nt Illness cont Neuro diagnostic : polysommogram with cpap on 04/19/2022 at [facility] referred for non-restorative sleep. Found to have frequent obstructive hyponeas and obstructive apneas with mode to sometimes severe desats. Primary patho was obstructive and central apneas were not convincing. RECOMMEND that ppt be offered autobipap with eap min 10, ps 5 and ipap max 23 cm h20 to start consider abg and sleep in non supine position. Another note dfrom 05/26/2023 for criteria I have placed order for ppt to get cpap this process has taken some time.Pain clinic: chronic neck and back pain and reported had injections monthly in [place]. He states he had injections of Toradol. Worse pain in his back and his spine does not support his upper body and he falls from side to side but no falls recently. Sister said issue with morphine and this was stopped. Moved from [place] in apr 2021 to be with son who has brain tumor. Ppt was never seen by a provider needed [place] pain management notes and did not offer medical management at this time. This note was written by an RN and it was just a call to the ppt. Awaiting notes from [place] pain management to go any further. Currently pain more controlled does not seem interested at this point. Neurology: 10/26/2023 Dr. Villalpando [facility] went for tremor that has affected him for decades with dizziness and ppt wanted to know if had parkinsons. Reported primary problem dysautonomia causing dizziness and orthostasis, tremor which is multifactoral, orthostatic hypotension and peripheral neuropathy. For tremor restarted primidone 50 mg daily. Neuro reported long years of drinking has impacted his central and peripheral nervous system. Advised to abstain from etoh which he has and control dm, stay active and might need cane. For peripheral neuropathy getting ncv +emg-LE. Follow up after testing. He also has seen our PT for rehab praveena with dizziness and falls. Colonoscopy: ppt is unsure. I do not see anything in the last 5 years at [facility]. Referral placed awaiting for colonoscopy. Dexa: Has not had that I am aware of. No issues with fx. Ppt not interested currently. MOLST: Reviewed with ppt with no changes, CPR but DNI which doesn't make much sense however ppt does not want to change. Jehovah witness no blood products verified even in emergencyDiagnosis, allergies and meds reviewed with pptVaccines: Ppt was given shingles vaccines today and due for wmfn2Bk:Mind: AxOx4 can be forgetful mild cognitive impairment moca in 10/2021 not reflective of cognitive ability, very independantMeds: sister helps with meds but makes him do it while supervises so he knows how to do itMobility: independentMM: Ppt wants to move to [place] and is his main goal. ROSDenies fever and chillsReports intermittent headaches due to his underlying conditions that go away with tylenol and denies dizziness, vertigo, syncope, seizures or vision changes currently. Does endorse that he does get dizziness if he stands to fast and has had falls from this. Denies weakness but reports n/t in his feet and can't feel top of his toesReports he has glasses for reading but no issues with change of visionReports no issues with hearing does not wear hearing aidsDenies problems swallowing or chewing and has his own teeth. He has special device to hold when he has tremors. Reports bilateral hand tremor at times mild and at other times difficulty eating due to the tremors. Denies SOBDenies chest pain, chest tightness, and palpitations currently. Reports mid chest burning and pressure when walking up or down the stairs or exertion in general. He reports will also get sweaty and nauseous at times. Goes away when he sits down. Reports known his bp drops when gets up too fast. Denies abd pain, n/v, diarrhea, constipation and drinking well but reduced appetite. Denies polyuria, polydipsia or polyphagiaReports chronic back pain but seems to be more controlledReports steady gait and frequent falls last month before he went to the hospital due to dizziness or syncope and found to have big drop in BP when standing. He trys to get up slowerReports feeling happy most days of the week and sad sometimes praveena related to not living in [place]. Does not like the cold. Does still enjoy activities. Motivation is hard at times but a bit better lately as using a bike in the house to get stronger. Reports sleeping better but still odd schedule. Still napping during the day at times. No SI. No hallucinations or delusions. Feels he is not angry now but does get irritated at times. PENAD middle age maleAxOx4 but has some mild cognitive impairment not always a great historian but in the now pretty good conversations. Slow speech or response at times. Moves slow at times.PERRLHearing intact Pt has own teeth with no concerns Moist mucous membranesNo enlarged cervical lymph nodes, thyroid inspected with no nodules palpatedBilateral hand tremor restingLSCTA bilaterally Heart regular rate +s1 and +s2Abd soft, non tender, non distended, +ktd7Ipchhm gait Skin intactFeet well taken care for, nails trimmed, +pp, no edema, reduced microfilament test, +cmsCalm and cooperative Semi-Annual Patient was seen today for their Semiannual at the office accompanied by sister who is paid special needs caregiver. Marquise is known for cancelling or not showing up for appts and had cancelled this appt multiple times and had to be reminded the importance of coming into appts so we can take care of him. Marquise enrolled at in 10/2021. Marquise lives with his sister/paid special needs caregiver and son who his sister and himself take care of in a first floor appt in [place]. The main goal of marquise and his sister is to move to [place] to the sunshine and get away from the cold and meet up with family down there. This has been a goal for some time but has not come to fruition. The family will be going to [place] for 2 weeks of vacation and the hope is they find some kind of housing down there. hospitalization, SNFs or falls in the last 6 monthsMultiple falls without injury one in June, one in July and 4 in August of 2023 in which one of those resulted in hospitalization due to multiple falls and syncope secondary to orthostatic hypotension at which fludrocortisone was added and metoprolol was stopped. Majority of falls are from tripping or dizziness with known to have orthostasis. No falls in last month. [facility] 09/04- presented for frequent falls at home especially when getting up the last 2-3 months, dizziness with change in position. LOC unclear. Ppt noted to not be a great historian. Ppt reported he presented due to insistence of his sister and because todays fall was different and like a seizure. However sister denies seizure like activity. Ppt denies med changes but records show Cymbalta was recently increased from 60 to 90 mg daily on 09/02/2024 by psych provider. Of note ppt was admitted with similar complaints a year prior in 05/2022 which were attributed to side effects of anti-psychotic meds. In the ED hypertensive 160/73 and HR was 96, afebrile. Orthostatic positive SBP drop of 47 and DBP of 10 and again positive after 2L IVF and SBP drop 52 and DBP of 13. Cr was 1.3, h and h stable with electrolytes wnl. Hepatic function baseline. Trop neg. Valporic acid level slightly low at 48.5. CTH neg for acute intracranial hemorrhage. CT cervical spine neg for acute fx. EKG NSR. Admitted for further eval of syncope with positive orthostatic hypotension despite IVF resuscitation. Cortisol level came back normal. Metoprolol was stopped and fludrocortisone was added with good response along with midodrine. Given high bp d/c midodrine. Tremors evaluated by neuro who rec outpt emg. PT recommended home with PT. Consulted to Dr. Villalpando for routine EMG nerve conducted study. Stop metoprolol and start fludrocortisone. Take time with position and increase activity as deena. Outpt cards follow up for orthostatic as well however echo reported to be normal. Consider tapering off Cymbalta. Had neuro follow up today. Complaints/concerns: Ppt can't stand winter, darkness, rain, snow and wants to move to [place]. Intermittent chest pressure/burning and dizziness/sweating when going up or down the stairs that goes away when sitting down. Ppt being worked up by neuro and cards recent hospitalization for syncope and dizziness due to orthostasis. Worried about his tremors and worried has parkinsons saw neuro today. ADLs/services: Sister is paid special needs caregiver and helps with meals, drives ppt to appts, sets up appts, but mostly ppt is independent. Sister sets up the meds for ppt. She sometimes helps button his shirt. Socialization/Mental Health: Reports he has a large family and the [employer] witness juvencio is very important to him being able to spread the word and go to meetings. He has missed some due to oversleeping which bothers him. He still enjoys his juvencio, family, movies and his dog. He reports he is in a better mental health then he has ever been and is happy most days of the week but sad a times and does not want to let his medications control his life. Sister confirms this. Mental Health: Follows with [facility] for schizoaffective disorder bipolar type and used to follow with Jeremias Vizcarra but ppt was not happy with him. Last visit prior to 10/12/2023 dose of Geodon was added in am however per note sister and ppt did not follow through with this after speaking with someone at [facility]. Ppt had Cymbalta added for depression with fair clinical effect. He was on two antipsychotics was taken off Seroquel due to too much sleepiness with hopes of monotherapy but then had severe insomnia and started back on Seroquel. He still was having trouble sleeping resulting in irritability and stated he didn't have trazadone thought it was stopped and this was resumed. Ppt reported to psych he was out of geodome for 2 months that did not get refilled and was more depressed, not eating well, sleeping a lot during day with little motivation. Cymbalta was increased at this time. Pp has in person and video visits monthly with last visit 10/12/2023 at which time ppt reported loss of appetite, chronic pain and stable weight. Ongoing tremor in hands and insomnia. No therapist. Pt reports mood remains depressed with little daytime energy and sleeping 2-3 hours a night with frequent daytime naps with significant irritability. Recent increase in gabapentin due to neuropathy. He had not taken geodome for 2 months due to running out and d/c for antipsychotic monotherapy. Increased cybalta for further tx of mood symptoms. Med compliance was reinforced. At that time ppt reports not been angry, getting up earlier and not feeling so depressed. No changes to meds. Per last note on Depakote sprinkles 375 mg BID, Seroquel 100 mg daily at HS, duloxetine take 90 mg daily, trazodone 100 mg daily at bedtime, gabapentin 600 mg BID in which psych prescribes all but gabapentin. Today reports more good days then bad with improved motivation has an indoor bike and still enjoys things. Podiatry: Feet well taken care of with no dryness, open wounds, +pp, no edema, +hair growth with decreased sensation to toes has neuropathy secondary to DM and saw podiatry 11/2022 but more recently 3 no shows. Sister helps with nails as well. No need to continue to follow with podiatry.Audiology: No issues with hearing and does not wear hearing aidsDental: Ppt has his own teeth and follows with [facility] dental last seen 05/16/2023 when he had a filling done however this was not scanned in. Denies issues with chewing or swallowing. Had a prior tooth extraction in may 2022. Currently no issues will assess follow up at next semi unless issues. Ophthalmology: Follows with [facility]ometry seen 12/2022 ordered bifocals for presbyopia, age related cataracts bilateral not yet indicated for surgical intervention. Will need follow up at next semi. Cardiology: March 19, 2022 [facility] cardiology Dr. Banda for HTN had been on lisinopril and amlodipine in past that were stopped due to renal dysfunction ? blood clot in kidney per [facility]. Ppt had swelling at time and had swelling and powder and resolved. BP well controlled and no swelling, ekg NSR, plan to do echo due to prior edema, continue asa as has numerous cad risk factors. Currently only on metoprolol. VSS. Treadmill standard with nuclear imaging test on 10/05/2008 found age predicted max HR was 97%, neg stress test for revfersible eschemia by ekg criteria, borderline diastolic htn at baseline, sbp within normal limits in stress and diastolic mildly elevated. NM Myocard perf spect multi sep 08 2008 normal myocardial perfusion imaging with exercise. Overall left ventricular systolic function was normal without regional wall motion.Endocrinology: I actually saw [facility] as endo provider through [facility] last apr 2022 most recently was seen on 04/18/2023 doesn't look to be much changes. He is on lantus 24 units daily and Humalog 7-17 units TID before meals. Bebe to scan sugars. He is on metformin 500 mg BID, Trulicity 1.5 mg sq injection wkly. Hx of diabetic neuropathy on gabapentin and Cymbalta. Reported sugars better in 200s at time does not have his reader. Diet high in carbs thought his cereal cornflakes had no sugar. Sister does most of shopping and prepares meals as paid caregiving. He is on glycerna supplement followed by RD. Does not get any exercise. I can manage his sugars and will no longer follow with endo. We discussed life style choices today like reducing starches and sweets and adding more lean protein and veggies and increasing exercise as tolerated. Discussed sleep hygiene as he is waking up close to noon and going to be at like 2 in am the am. He is on statin and no mikel/arb at one point had blood clot in kidney? Worsening kidney numbers and was taken off and swelling. We have room to go up on Trulicity. 2022 labs [facility] Urine microalbumin neg, lipid panel 108/217/33/32, and in 07/2023 alc 7.3% (not anemia at the time), cr 1.01 and gfr 86. Lytes wnl, glucose 232 Acute Visit PT has been work ing with ppt and noticed orthostatis. At the time it was discussed ppt spends a lot of time in bed and doesn't hydrate which she discussed with him and she felt his orthostasiis has improved. Ppt lives in the community with his sister who is his caregiver. He is known for not always showing up for appts. However he came today with sister and his son who lives with him. He is not a great historian at times. However per sister ppt had a fall this am on the way to [place] half way getting dressed shoes on wrong feet kind of tripped hit the dresser on the way down with his body and head and lip. Reported left lower lip bled but stopped. NO neuro changes. Concern by sister for parkinsons has has essential tremor in both hands that seems to get worse, slower speech and thinking, and shuffled gait and now more falls. Ppt has been waiting to see neuro. However sister is worried about his heart as well and wants him to follow up with cards as he missed his last appt. I will also place an order for echoSister reports he had an appt last year I see in [facility] today for sleep study I can't see result sister says severe sleep apnea but they never delivered the equiptment working on getting note will have business office call to see what the hold up with equiptment is. ppt does not hydrate enough and very sedentary. Needs compression stocks, get up slow, stay hydrated for orthosiasisROSdenies fever and chillsdenies headache, reports intermittent dizziness without vertigo, generalized weakness, UE tremors getting worse hard to eat at times, shuffled gait and slow speech and slow for him to understand has to repeat twice. Denies syncopedenies vision changesdenies understanding what people say or getting words out just takes a little longer to get out what he wants to saydenies sobdenies chest pain, palpatationsdenies abd pain n/v, constiapation and diarrheadenies leg paindenies sadness currentlyreports chronic whole back painPEMiddle aged man appears faigued and tremulous bilaterallyAxOx3 but can be forgetful not a great historian, takes a little bit to get out what he wants to say, speech clear and appropriate no facial drop and no tongue deviationperrl, no nystagmusMAE=strongLSCTA bilaterallyheart rate regular +s1 and +r6ohahcslwt hand tremors moderate at rest and when elevating arms, no arm dropmild pedal edema, +pp, +cmsshuffled gaitcalm and cooperative, flat affectplanfollow up with cards and get echofollow up with neuro for back pain and mostly for ? parkinsonsfollow up with sleep study and cpapcbc, cmpPTcompression socksget up slowstay hydrated Semi-Annual Patient was seen today for their Semiannual at their home accompanied by sister who is paid special needs caregiver. We have made multiple attempts to get ppt to come into site and call but no one picked up. Discussed with paid special needs caregiver that she needs to be available by phone. She checked her phone to make sure there was nothing wrong. She reported she never got any calls. We verified her number along with ppt. Ppt FATOU was due a week earlier but never showed up multiple times and then there was two provider changes. This is my first time meeting [facility] as new pcp. Ppt enrolled at in 10/2021. Ppt lives with his sister/paid special needs caregiver and son in an first floor appt in [place]. HHN will be getting VS as not done today due to equipment errorNo recent hospitalization, SNFs or falls per ppt, collective and [facility] review in the last year.Complaints/concerns: No real concerns. Sister feels ppt is a little down however ppt reports he just wishes he was living in [place] and that is his goal. ADLs/services: Sister is paid special needs caregiver and helps with meals, drives ppt to appts, sets up appts, but mostly ppt is independent. Socialization/Mental Health: Reports he has a large family and the [employer] witness juvencio is very important to him being able to spread the word and go to meetings. He has missed some due to oversleeping which bothers him. He still enjoys his juvencio, family, movies and his dog. He reports he is in a better mental health then he has ever been and is happy most days of the week but sad a times and does not want to let his medications control his life. Sister confirms this. Podiatry: Feet well taken care of with no dryness, open wounds, +pp, no edema, +hair growth with decreased sensation to toes follows with podiatry. Ppt reports saw them recently but not scanned in. He did have many no shows. Sister helps with nails as well. Audiology: No issues with hearing and does not wear hearing aidsDental: Ppt has his own teeth and follows with [facility] dental last seen 05/16/2023 when he had a filling done. Denies issues with chewing or swallowing.Ophthalmology: Follows with [facility]ometry seen 12/2022 ordered bifocals for presbyopia, age related cataracts bilateral not yet indicated for surgical intervention. Cardiology: March 19, 2022 [facility] cardi[place] Dr. Banda for HTN had been on lisinopril and amlodipine in past that were stopped due to blood clot in kidney and swelling, at time BP well controlled and no swelling, ekg NSR, plan to do echo due to prior edema, continue asa as has numerous cad risk factors. Currently only on metoprolol. VSS. Endocrinology: I actually saw ppt as endo provider through [facility] last apr 2022 most recently was seen on 04/18/2023 doesn't look to be much changes. He is on lantus 24 units daily and Humalog 7-17 units TID before meals. Bebe to scan sugars. He is on metformin 500 mg BID, Trulicity 1.5 mg sq injection wkly. Hx of diabetic neuropathy on gabapentin and Cymbalta. Sugars ave last [address] sugar last 2 wks edwin 6 hours starting at midnight 169/167/193/220. Diet high in carbs thought his cereal cornflakes had no sugar. Sister does most of shopping and prepares meals as paid caregiving. He is on glycerna supplement followed by RD. Does not get any exercise. I can manage his sugars and will no longer follow with endo. We discussed life style choices today like reducing starches and sweets and adding more lean protein and veggies and increasing exercise as tolerated. Discussed sleep hygiene as he is waking up close to noon and going to be at like 2 in am the am. He is on statin and no mikel/arb at one point had blood clot in kidney and was taken off. We have room to go up on Trulicity which we can do at end of month. 2022 labs [facility] Urine microalbumin neg, lipid panel 108/217/33/32, alc 8%, cr 1.1 and gfr 81. Olvin wnlNlaisha diagnostic: polysommogram with cpap on 04/19/2022 at [facility] referred for non-restorative sleep. Found to have frequent obstructive hyponeas and obstructive apneas with mode to sometimes severe desats. Primary patho was obstructive and central apneas were not convincing. RECOMMEND that ppt be offered autobipap with eap min 10, ps 5 and ipap max 23 cm h20 to start consider abg and sleep in non supine position.Pain clinic: chronic neck and back pain and reported had injections monthly in [place]. He states he had injections of Toradol. Worse pain in his back and his spine does not support his upper body and he falls from side to side but no falls recently. Sister said issue with morphine and this was stopped. Moved from [place] in apr 2021 to be with son who has brain tumor. Ppt was never seen by a provider needed [place] pain management notes and did not offer medical management at this time. This note was written by an RN and it was just a call to the ppt. Awaiting notes from [place] pain management to go any further. Colonoscopy: ppt is unsure. I do not see anything in the last 5 years at [facility]. Will try to find if he has had recently if not will place orderDexa: n/a less than 65MOLST: Reviewed with ppt with no changes, cpi but dni which doesn't make much sense however ppt does not want to change. Jehovah witness no blood products verified even in emergencyDiagnosis, allergies and meds reviewed with pptVaccines: looks like might be do for shingles vaccines, tdap, and flu in dtah4Ri:Mind: AxOx4 can be forgetful mild cognitive impairment moca in 10/2021 not reflective of cognitive ability, very independantMeds: sister helps with meds but makes him do it while supervises so he knows how to do itMobility; independentMM: Not letting his medications control his lifeROSDenies fever and chillsReports intermittent headaches due to his underlying conditions and denies dizziness, vertigo or vision changesDenies weakness but reports her n/t in his feet and can't feel top of his toesReports he has glasses for reading but no issues with change of visionReports no issues with hearing does not wear hearing aidsDenies problems swallowing or chewing and has her own teethReports bilateral hand tremor at times mild and at other times can't eat due to thisDenies SOBDenies chest pain, chest tightness, and palpitations currently. Denies abd pain, n/v, diarrhea, constipation and eating well. Reports polyuria but no polydipsia or polyphagiaReports chronic back pain currently not badReports steady gait and no fallsReports feeling happy most days of the week and sad sometimes praveena related to not living [place] middle age [id number] intact Pt has own teeth with no concerns Moist mucous membranesNo enlarged cervical lymph nodes, thyroid inspected with no nodules palpatedBilateral hand tremor restingLSCTA bilaterally Heart regular rate +s1 and +s2Abd soft, non tender, non distended, +qvg6Vilsyw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
--- NOTE | ~2025-06-20 | XR_ITS ---
EXAMINATION: XR ANKLE, RIGHT CLINICAL INFORMATION: M25.571 - Pain in right ankle and joints of right foot COMPARISON: 05/20/2025, 04/24/2025, 02/22/2025. TECHNIQUE: AP, lateral, and mortise views of the right ankle. FINDINGS: Redemonstration of oblique fracture of the lateral malleolus with minimal displacement, unchanged. Fracture lines still well seen but sclerotic. Bridging bony callus noted on the lateral projection indicating healing. The mortise remains intact. The talar dome is normal. The subtalar joints and calcaneus appear intact. There is a moderate-sized dorsal calcaneal spur. Improving lateral soft tissue swelling. XR/XR ankle RT min 3V IMPRESSION: Healing fracture of the lateral malleolus, unchanged in alignment. Electronically signed by: Juan Antonio Parham MD 06/20/2025 02:36 PM EDT
== END 2025-06-20 11:18 | disposition home or self-care (01) ==
LOC: HO.HOSX 11:17
PROVIDERS: Visit Provider Physician Assistant
DX: S82.61XD Displaced fracture of lateral malleolus of right fibula, subsequent encounter for closed fracture with routine healing (principal); X58.XXXD Exposure to other specified factors, subsequent encounter
CPT/HCPCS: 73610; 99212

== ENCOUNTER 2025-06-20 14:05 | Outpatient (AMB) | payer MEDICARE, MEDICAID, SELFPAY ==
--- OUTSIDE RECORDS SUMMARY | 2024-03-05 05:14 | XMS_ITS | Continuity of Care Document ---
Author Organization [facility] [place] Address [address] [address] Phone Care Team Providers Care Basket Patcher Name Role Phone Jer FREY, Ujjwala Unavailable [...] 08/31/2023 appt with psych amrit hastings from [facility] Lantus U-100 Insulin 100 unit/mL subcutaneous [...] Has been filled by Psych so far [employer] Bebe 2 Carpio use to read blood sugar QID - Active Advance Directives Directive Yes / No Effective Date File Name No Information Encounters Encounter Description Practice Location Reason(s) For Visit Diagnoses Date Provider [facility], [address] [facility] [address], [place], [place], [id number], [place] tel:[phone] [place] No Information Shreyas- 0-202 4 Jer Fletcherjjjanea. [address] [place], [place], [id number], [place]. tel:[phone] [facility], [address], [place], [place], [id number], [place] tel:[phone] [place] No Information January-2 4-202 4 Coon Ashlee. [address] [place], [place], [id number], [place]. tel:[phone] [facility], [address] [facility], [place], [place], [id number], [place] tel:[phone] [place] No Information January-2 3-202 4 Coon Ashlee. [address] [place], [place], [id number], [place]. tel:[phone] [facility], [address], [place], [place], [id number], [place] tel:[phone] [place] No Information Dec-3 0-202 4 Coon Ashlee. [address] [place], [place], [id number], [place]. tel:[phone] [facility], [address] [facility], [place], [place], [id number], [place] tel:[phone] [place] No Information Dec-2 2-202 4 Coon Ashlee. [address] [place], [place], [address], [place]. tel:[phone] [facility], [address], [place], [place], [id number], [place] tel:[phone] [place] No Information Dec-1 9-202 4 Coon Ashlee. [address] [place], [place], [id number], [place]. tel:[phone] [facility], [address], [place], [place], [id number], [place] tel:[phone] [place] No Information 4 Coon Ashlee. [address] [place], [address], [place]. tel:[phone] [facility], [address] [facility], [place], [place], [id number], [place] tel:[phone] [place] No Information 4 Pitsiladis Adelina. [address] [facility] [place], [id number], [place]. tel:[phone] [facility], [address] [address], [place], [place], [address], [place] tel:[phone] [place] No Information 4 Coon Ashlee. [address] [facility] [place], [id number], [place]. tel:[phone] [facility], [address] [facility], [place], [place], [id number], [place] tel:[phone] [place] Encounter for nutritional assessmentDiabetic nutritional counseling completed 4 Normile Caitlin. [address] [facility] [place], [id number], [place]. tel:[phone] [facility], [address] [address], [place], [place], [address], [place] tel:[phone] [place] No Information 4 Coon Ashlee. [address] [facility] [place], [address], [place]. tel:[phone] [facility], [address] [address], [place], [place], [address], [place] tel:[phone] [place] Muscle weakness (generalized) b0 4 Brianna Leonarda. [address] [facility] [place], [id number], [place]. tel:[phone] [facility], [address] [facility] [address], [place], [place], [address], [place] tel:[phone] [place] Difficulty in walkin g, not elsewhere classified 4 [address] Caraballo. [address] [facility] [place], [address], [place]. tel:[phone] [facility], [address] [facility], [place], [place], [address], [place] tel:[phone] [place] Muscle weakness (generalized) 4 Brianna Brower. [address] [facility] [place], [id number], [place]. tel:[phone] [facility], [address] [facility], [place], [place], [id number], [place] tel:[phone] [place] Encounter for rehabilitation evaluation 4 Brianna Brower. [address], [place], [place], [id number], [place]. tel:[phone] [facility], [address] [facility] [facility], [place], [place], [id number], [place] tel:[phone] [place] Semi-Annua l (chief complaint) cont (chief complaint) Type 2 diabetes mellitus with diabetic polyneuropathy, unspecified whether chcf insulin useCurrent use of insulinSeizureOpioid dependence in remissionHistory of cocaine abusePTSD (post-traumatic stress disorder)Schizoaffectiv e disorder, bipolar typeHypercholesteremiaH ypertension, unspecified typeOrthostatic hypotensionEssential tremorCervical disc diseaseChronic bilateral low back pain without sciaticaOther chronic painObstructive sleep apneaDysautonomiaPromedica [facility] care maintenance 4 Shaggy Rosado. [address] [place], [id number], [place]. tel:[phone] [facility], [address] [facility] [facility], [place], [place], [address], [place] tel:[phone] [place] No Information 4 Coonbridgett Rosado. [address] [place], [place], [id number], [place]. tel:[phone] [facility], [address], [place], [place], [id number], [place] tel:[phone] [place] No Information 4 Jake Hoffman. [address] [place], [place], [address], [place]. tel:[phone] [facility], [address], [place], [place], [address], [place] tel:[phone] [place] Difficulty in walkin g, not elsewhere classified [address] Caraballo. [address] [place], [place], [id number], [place]. tel:[phone] [facility], [address], [place], [place], [address], [place] tel:[phone] [place] Difficulty in walkin g, not elsewhere classified [address] Caraballo. [address] [place], [place], [address], [place]. tel:[phone] [facility], [address], [place], [place], [address], [place] tel:[phone] [place] Encounter for rehabilitation evaluationDifficulty in walking, not elsewhere classified [address] Caraballo. [address], [place], [place], [address], [place]. tel:[phone] [facility], [address], [place], [place], [address], [place] tel:[phone] [place] No Information 3 Shaggy Rosado. [address] [place], [place], [address], [place]. tel:[phone] [facility], [address], [place], [place], [id number], [place] tel:[phone] [place] Muscle weakness (generalized) Aug- 3 [address] Caraballo. [address] [place], [place], [address], [place]. tel:[phone] [facility], [address], [place], [place], [address], [place] tel:[phone] [place] Other abnormalities of gait and mobility 3 [address] Caraballo. [address], [place], [place], [address], [place]. tel:[phone] [facility], [address], [place], [place], [address], [place] tel:[phone] [place] No Information 3 Shaggy Rosado. [address] [place], [place], [address], [place]. tel:[phone] [facility], [address], [place], [place], [address], [place] tel:[phone] [place] No Information 3 Shaggy Rosado. [address] [place], [place], [address], [place]. tel:[phone] [facility], [address], [place], [place], [address], [place] tel:[phone] [place] Difficulty in walkin g, not elsewhere classified [address] Caraballo[address] [place], [place], [address], [place]. tel:[phone] [facility], [address], [place], [place], [address], [place] tel:[phone] [place] Difficulty in walkin g, not elsewhere classified [address] Caraballo[address] [place], [place], [address], [place]. tel:[phone] [facility], [address] [facility], [place], [place], [address], [place] tel:[phone] [place] Acute Visit (chief complaint) Essential tremorObstructive sleep apneaOrthostatic hypotensionOther chronic pain 3 Shaggy Rosado. [address] [place], [place], [address], [place]. tel:[phone] [facility], [address] [facility], [place], [place], [address], [place] tel:[phone] [place] Difficulty in walkin g, not elsewhere classified [address] Caraballo[address] [place], [place], [address], [place]. tel:[phone] [facility], [address] [facility], [place], [place], [address], [place] tel:[phone] [place] Difficulty in walkin g, not elsewhere classified [address] Rashmi[address] [place], [place], [id number], [place]. tel:[phone] [facility], [address] [facility], [place], [place], [address], [place] tel:[phone] [place] Encounter for rehabilitation evaluation 3 Court Rashmi. [address] [place], [place], [id number], [place]. tel:[phone] [facility], [address] [facility], [place], [place], [address], [place] tel:[phone] [place] No Information 3 Danny Hodges. [address] [place], [place], [id number], [place]. tel:[phone] [facility], [address] [facility] [address], [place], [place], [address], [place] tel:[phone] [place] Semi-Annua l (chief complaint) Schizophrenia, unspecified typeBipolar 1 disorderHealthcare maintenanceObstructive sleep apneaEssential tremorChronic pain syndromeCervical disc diseaseSeizureHyperchol esteremiaChronic bilateral low back pain, unspecified whether sciatica presentOther chronic painErectile dysfunction, unspecified erectile dysfunction typeUrinary incontinence, unspecified typeType 2 diabetes mellitus with diabetic polyneuropathy, unspecified whether chcf insulin useCurrent use of insulinPrimary hypertensionOpioid dependence in remissionHistory of cocaine abusePTSD (post-traumatic stress disorder) 3 Shaggy Rosado. [address] [facility] [address], [place], [place], [address], [place]. tel:[phone] [facility], [address] [facility], [place], [place], [address], [place] tel:[phone] [place] Encounter for nutritional assessmentAt risk for inadequate oral intakeDiabetic nutritional counseling completed 3 Pelon Tucker. [address] [place], [place], [address], [place]. tel:[phone] [facility], [address] [facility], [place], [place], [address], [place] tel:[phone] [place] Dorsalgia, unspecified 3 Bhagavatula Uclaricejwala. [address] [facility] [address], [place], [place], [address], [place]. tel:[phone] [facility], [address] [facility] [address] [facility], [place], [place], [address], [place] tel:[phone] [place] Encounter for genera l adult medical examination without abnormal findings 3 Robert Johnson. [address] [place], [place], [id number], [place]. tel:[phone] [facility], [address], [place], [place], [address], [place] tel:[phone] [place] Type 2 diabetes mellitus with other skin complications 3 Bhagavatula Ujjwala. [address] [facility] [place], [address], [place]. tel:[phone] [facility], [address], [place], [place], [address], [place] tel:[phone] [place] Other chest pain 3 Robert Johnson. [address] [place], [place], [address], [place]. tel:[phone] [facility], [address], [place], [place], [address], [place] tel:[phone] [place] Encounter for nutritional assessmentDiabetes education, encounter forExcessive carbohydrate intakeAt risk for inadequate oral intake 3 Pelon Tucker. [address] [facility] [place], [address], [place]. tel:[phone] [facility], [address], [place], [place], [address], [place] tel:[phone] [place] Other chronic pain 3 Praneeth Cerna. [address] [facility] [address], [place], [place], [address], [place]. tel:[phone] [facility], [address] [facility] [facility], [place], [place], [address], [place] tel:[phone] [place] Encounter for rehabilitation evaluation 3 Parneeth Cerna. [address] [facility] [place], [address], [place]. tel:[phone] [facility], [address], [place], [place], [id number], [place] tel:[phone] [place] Encounter for rehabilitation evaluation 3 Jamshid Fregoso. [address] [facility] [place], [address], [place]. tel:[phone] [facility], [address], [place], [place], [address], [place] tel:[phone] [place] FATOU (chief complaint) Schizophrenia, unspecified typeBipolar 1 disorderLong term current use of antipsychotic medicationHistory of cocaine abuseHypertension, unspecified typeHypercholesteremiaT ype 2 diabetes mellitus with diabetic polyneuropathy, with long-term current use of insulinLong term (current) use of insulinEssential tremorSeizureLong term (current) use of oral hypoglycemic drugsOpioid dependence, in remission 3 Robert Alex. [address] [place], [place], [id number], [place]. tel:[phone] [facility], [address], [place], [place], [address], [place] tel:[phone] [place] No Information 2 Danny Hodges. [address] [place], [place], [address], [place]. tel:[phone] [facility], [address] [facility], [place], [place], [address], [place] tel:[phone] [place] Muscle weakness (generalized) 2 Kirsten Kip. [address] [place], [address]. tel:[phone] [facility], [address], [place], [place], [address], [place] tel:[phone] [place] PHV (chief complaint) longterm current use of antipsychotic medicationAspiration pneumonia, unspecified aspiration pneumonia type, unspecified laterality, unspecified part of lung 2 Os Crissy. [address] [place], [place], [id number], [place]. tel:[phone] [facility], [address] [place] [address], [id number], [place] tel:[phone] [place] No Information 2 Danny Hodges. [address] [place], [place], [id number], [place]. tel:[phone] [facility], [address] [facility], [place], [place], [address], [place] tel:[phone] [place] Muscle weakness (generalized) 2 Kirsten Kip. [address] [place], [address]. tel:[phone] [facility], [address] [facility] [facility], [place], [place], [address], [place] tel:[phone] [place] Muscle weakness (generalized) 2 Kirsten Kip. [address] [place], [address]. tel:[phone] [facility], [address] [facility], [place], [place], [address], [place] tel:[phone] [place] No Information 2 Os Crissy. [address] [place], [address], [place]. tel:[phone] [facility], [address] [facility], [place], [place], [address], [place] tel:[phone] [place] Hemiplegia and hemiparesis following unspecified cerebrovascular disease affecting right non-dominant sideMuscle weakness (generalized) 2 Kirsten Kip. [address] [place], [address]. tel:[phone] [facility], [address] [facility], [place], [place], [address], [place] tel:[phone] [place] Diabetes education, encounter forEncounter for nutritional assessmentExcessive carbohydrate intake 2 Normile Caitlin. [address] [place], [place], [address], [place]. tel:[phone] [facility], [address] [facility], [place], [place], [address], [place] tel:[phone] [place] FATOU (chief complaint) Hypertension, unspecified typeHypercholesteremiaC urrent use of insulinType 2 diabetes mellitus with diabetic polyneuropathy, unspecified whether terminal computer operator insulin useSchizophrenia, unspecified typeBipolar 1 disorderPTSD (post-traumatic stress disorder)longterm current use of antipsychotic medicationBack pain, unspecified back location, unspecified back pain laterality, unspecified chronicitySeizureEssent ial tremorOpioid dependence, in remission 2 Os Crissy. [address] [place], [place], [address], [place]. tel:[phone] [facility], [address] [facility], [place], [place], [address], [place] tel:[phone] [place] Extraction of tooth needed 2 Os Crissy. [address] [place], [place], [address], [place]. tel:[phone] [facility], [address] [facility] [facility], [place], [place], [address], [place] tel:[phone] [place] Muscle weakness (generalized) 2 Kirsten Kip. [address] [place], [address]. tel:[phone] [facility], [address] [facility] [facility], [place], [place], [address], [place] tel:[phone] [place] Muscle weakness (generalized) 2 Kirsten Kip. [address], [place], [address]. tel:[phone] [facility], [address] [facility], [place], [place], [address], [place] tel:[phone] [place] Obstructive sleep apnea 2 Os Crissy. [address] [place], [place], [address], [place]. tel:[phone] [facility], [address] [facility] [facility], [place], [place], [address], [place] tel:[phone] [place] Difficulty in walkin g, not elsewhere classified 2 Kirsten Kip. [address] [place], [address]. tel:[phone] [facility], [address] [facility], [place], [place], [address], [place] tel:[phone] [place] Other chronic pain 2 Danny Carroll. [address] [place], [address], [place]. tel:[phone] [facility], [address] [facility] [facility], [place], [place], [address], [place] tel:[phone] [place] Type 2 diabetes mellitus with diabetic polyneuropathy, unspecified whether chcf insulin use 2 Os Crissy. [address] [place], [address], [place]. tel:[phone] [facility], [address] [facility] [facility], [place], [place], [address], [place] tel:[phone] [place] FUV (chief complaint) Edema, unspecified type 2 Os Crissy. [address] [place], [place], [address], [place]. tel:[phone] [facility], [address] [facility], [place], [place], [address], [place] tel:[phone] Morris PHV (chief complaint) Back pain, unspecified back location, unspecified back pain laterality, unspecified chronicity 2 Os Crissy. [address] [place], [place], [address], [place]. tel:[phone] [facility], [address] [facility], [place], [place], [address], [place] tel:[phone] [place] OV (chief complaint) Current use of insulinFall, initial encounterType 2 diabetes mellitus without complication, with long-term current use of insulin 2 Os Crissy. [address] [place], [place], [address], [place]. tel:[phone] [facility], [address] [facility], [place], [place], [address], [place] tel:[phone] [place] No Information 2 Os Crissy. [address] [place], [place], [address], [place]. tel:[phone] [facility], [address] [facility], [place], [place], [address], [place] tel:[phone] [place] Type 2 diabetes mellitus with diabetic polyneuropathy, unspecified whether chcf insulin use 2 Os Crissy. [address] [place], [place], [address], [place]. tel:[phone] [facility], [address] [facility], [place], [place], [address], [place] tel:[phone] [place] Encounter for nutritional assessmentAbnormal weight lossDiabetes education, encounter for 2 Normile Caitlin. [address] [place], [place], [address], [place]. tel:[phone] [facility], [address] [facility] [address], [place], [place], [address], [place] tel:[phone] [place] PEE (chief complaint) Hypertension, unspecified typeHypercholesteremiaC urrent use of insulinErectile dysfunction, unspecified erectile dysfunction typeSchizophrenia, unspecified typeBipolar 1 disorderPTSD (post-traumatic stress disorder)longterm current use of antipsychotic medicationSeizureCervic al disc diseaseChronic pain syndromeEssential tremorEncounter for general adult medical examination without abnormal findingsOpioid dependence, in remissionType 2 diabetes mellitus with diabetic polyneuropathy, unspecified whether terminal computer operator insulin useHistory of cocaine abuse 2 Os Crissy. [address] [place], [place], [address], [place]. tel:[phone] [facility], [address] [facility] [address], [place], [place], [address], [place] tel:[phone] [place] Encounter for rehabilitation evaluation 2 Kirsten Shin. [address], [place], [address]. tel:[phone] [facility], [address] [facility] [address] [facility], [place], [place], [address], [place] tel:[phone] [place] Encounter for rehabilitation evaluationDifficulty in walking, not elsewhere classifiedAlteration in performance of activities of daily living 2 Deirdre Garcia Zenobia Leonard. [address] [place], [place], [address]. tel:[phone] [facility], [address] [facility] [address] [facility], [place], [place], [address], [place] tel:[phone] [place] Encounter for genera l adult medical examination without abnormal findings 2 Jeffrey Robins. [address], [place], [place], [address], [place]. tel:[phone] [facility], [address] [facility] [address] [facility], [place], [place], [address], [place] tel:[phone] [place] No Information 2 Aria Chambers. [address] [place], [address], [place]. tel:[phone] Family History Family Member Type Diagnosis Age At Onset Mother Problem Diabetes mellitus Father Problem Heart disease Immunizations Vaccine Date Status Comments Zoster recombinant subunit administered S ource: New Immunization Record Flu-IIV4, p-free administered Source: Ot er Registry COVID-19 Pfizer Bivalent 12y+ administere d Source: Other Registry Fluzone Quad administered [facility] e: New Immunization Record Prevnar 13 administered Source: New Imm unization Record Fluzone Quad [id number] administered Note: Got influenza vaccine same day as COVID ; Source: Other Registry COVID-19 (Pfizer) administered Source: Ot [facility] Provider COVID-19 (Pfizer) administered Source: Ot her Provider Payers Payer name Insurance type Covered alliance party ID eKiko berman(abiel) [facility] 16 [id number] [facility] 16 [id number] [facility] 16 [id number] [facility] 16 [id number] Social History Type Description Quantity Date Captured Comments Sex Male Smoking Status No Information Chief Complaint And Reason For Visit No Information Plan Of Treatment Date Type Action Status Referral Ordered: Referrals: Neurology. Location: [facility] Appointment date/timeframe: 10/26/2023 ordered Referral Ordered: Referrals: Cardiology. Location: [facility]. Consult Appointment date/timeframe: 02/28/2024 ordered Referral Ordered: Referrals: Pain Medicine. Consult ordered Referral Ordered: Referrals: Gastroenterology Appointment date/timeframe: 03/08/2023 ordered Referral Ordered: Referrals: [facility] [place] [facility] Evaluate and treat ordered Referral Ordered: Referrals: Podiatry Appointment date/timeframe: 11/29/2022 ordered Referral Ordered: Referrals: [facility] Appointment date/timeframe: 01/18/2023 ordered Referral Referred To: [...] 2D image, spectral Doppler, color flow image ([id number]), Ordered on: Ordered Future Order: Radiology Order Po lysomnography, 4+ add'l params ([id number]), Ordered on: Ordered History Of Present Illness Encounter Date Complaint History Of Prese nt Illness Semi-Annual Patient was seen today for their Semiannual at the office accompanied by sister who is paid care associate. Marquise is known for cancelling or not showing up for appts and had cancelled this appt multiple times and had to be reminded the importance of coming into appts so we can take care of him. Marquise enrolled at in 10/2021. Marquise lives with his sister/paid care associate and son who his sister and himself take care of in a first floor appt in [place]. The main goal of marquise and his sister is to move to [place] to the sun[place] and get away from [...] have orthostasis. No falls in last month. [facility] 09/04- presented for frequent falls at home [...] saw neuro today. ADLs/services: Sister is paid care associate and helps with meals, drives ppt to [...] this. Mental Health: Follows with Candace Hastings [facility] for schizoaffective disorder bipolar type and used [...] has his own teeth and follows with [facility] dental last seen 05/16/2023 when he had a filling done however this was not scanned in. Denies issues with chewing or swallowing. Had a prior tooth extraction in may 2022. Currently no issues will assess follow up at next semi unless issues. Ophthalmology: Follow[facility] seen 12/2022 ordered bifocals for presbyopia, age related cataracts bilateral not yet indicated for surgical intervention. Will need follow up at next semi. Cardiology: March 19, 2022 [facility] [place]. Banda for HTN had been [...] without regional wall motion.Endocrinology: I actually saw [facility] as endo provider through [facility] [place] last apr 2022 most recently was seen [...] : polysommogram with cpap on 04/19/2022 at [facility] referred for non-restorative sleep. Found [...] pain and reported had injections monthly in [place]. He states he had injections of Toradol. Worse pain in his back and his spine does not support his upper body and he falls from side to side but no falls recently. Sister said issue with morphine and this was stopped. Moved from [place] in apr 2021 to be with son who has brain tumor. Ppt was never seen by a provider needed [place] pain management notes and did not offer medical management at this time. This note was written by an RN and it was just a call to the ppt. Awaiting notes from [place] pain management to go any further. Currently pain more controlled does not seem interested at this point. Neurology: 10/26/2023 Dr. Villalpando [facility] went for tremor that has affected him [...] anything in the last 5 years at [facility]. Referral placed awaiting for colonoscopy. Dexa: Has [...] given shingles vaccines today and due for nmdo5Mn:Mind: AxOx4 can be forgetful mild cognitive impairment [...] and +s2Abd soft, non tender, non distended, +qui8Lzixfh gait Skin intactFeet well taken care for, [...] no nystagmusMAE=strongLSCTA bilaterallyheart rate regular +s1 and +a7toibnkizp hand tremors moderate at rest and when [...] home accompanied by sister who is paid care associate. We have made multiple attempts to get ppt to come into site and call but no one picked up. Discussed with paid care associate that she needs to be available by phone. She checked her phone to make sure there was nothing wrong. She reported she never got any calls. We verified her number along with ppt. Ppt FATOU was due a week earlier but never showed up multiple times and then there was two provider changes. This is my first time meeting [facility] as new pcp. Ppt enrolled at in 10/2021. Ppt lives with his sister/paid care associate and son in an first floor appt in [place]. HHN will be getting VS as not done today due to equipment errorNo recent hospitalization, SNFs or falls per ppt, collective and [facility] review in the last year.Complaints/concerns: No real concerns. Sister feels ppt is a little down however ppt reports he just wishes he was living in [place] and that is his goal. ADLs/services: Sister is paid care associate and helps with meals, drives ppt to [...] has his own teeth and follows with [facility] last seen 05/16/2023 when he had a filling done. Denies issues with chewing or swallowing.Ophthalmology: Follow[facility] seen 12/2022 ordered bifocals for presbyopia, age related cataracts bilateral not yet indicated for surgical intervention. Cardiology: March 19, 2022 [facility] [place] Dr. Banda for HTN had been [...] actually saw ppt as endo provider through [facility] [place] last apr 2022 most recently was seen [...] do at end of month. 2022 labs [facility] [place] [place] Urine microalbumin neg, lipid panel 108/217/33/32, alc 8%, cr 1.1 and gfr 81. Olvin wnlNlaisha diagnostic: polysommogram with cpap on 04/19/2022 at [facility] referred for non-restorative sleep. Found [...] pain and reported had injections monthly in [place]. He states he had injections of Toradol. Worse pain in his back and his spine does not support his upper body and he falls from side to side but no falls recently. Sister said issue with morphine and this was stopped. Moved from [place] in apr 2021 to be with son who has brain tumor. Ppt was never seen by a provider needed [place] pain management notes and did not offer medical management at this time. This note was written by an RN and it was just a call to the ppt. Awaiting notes from [place] pain management to go any further. Colonoscopy: ppt is unsure. I do not see anything in the last 5 years at [facility]. Will try to find if he has [...] for shingles vaccines, tdap, and flu in royz1Vi:Mind: AxOx4 can be forgetful mild cognitive impairment [...] sometimes praveena related to [place] living [place] age yacyWbIz7WUELAUrsvnet intact Pt has own teeth with no concerns Moist mucous membranesNo enlarged cervical lymph nodes, thyroid inspected with no nodules palpatedBilateral hand tremor restingLSCTA bilaterally Heart regular rate +s1 and +s2Abd soft, non tender, non distended, +nml9Wgylfi gait Skin intactFeet well taken care for, [...] - appt pending Prescriber - Candace Hastings ([facility])No questions or concerns he is doing so much better reports a family memberHX OF COCCAINE/OPIOID ABUSEDenies current useHTNMetoprololBP 104/70 todayLabs later DM w/ [id number] - 7% (04/2022)Foot exam?Metformin, lantus, HumalogDoes not see podiatry - will refer No other questions or concerns SEIZUREPast hx of seizure On depkaote No seizure activity in a very long time ESSENTIAL TREMORFor about 15 years Waiting on neuro referralHEALTH MAINTENANCE Dental - in place per family Vision - will refer Colonoscopy - approx. 2-3 years ago. ALLERGIES No new vs nextgen PHV FATOU Comments: Rogelio mo is a 56 [...] ect.): pain be managed without addictive medications FUV Comments: Rogelio mo is a 56 [...] for a PHV. Pt was brought to [facility] on 01/25 for back pain. He received [...] his 30s when he was living in [place]. He reported his ex- determined he had [...] is a good support along with his nondenominational. -Currently denies any type of hallucinations or delusions. Denies wanting to hurt himself or anyone else. Denies SI. Both he and his sister feel he is the best he has been and in a stable place. Reports a little depressed as he wants to move to [place] but comes and goes. Follows with Candace Hastings [facility] for schizoaffective disorder bipolar type [...] a good support and also Jehovah witness nondenominational. No longer doing drugs for some time [...] the same as well as sister (in [place])denies any current useusing non opioid alternatives for chronic pain with sucess like gabapentin and cymbalta Related to Opioid dependence in remission no seizure activityN a wnl at [facility] depokote 375 bid with valporic acid level [...] saw ppt a s endo provider through [facility] [place] last apr 2022 most recently was seen [...] diabetes mellitus with diabetic polyneuropathy, unspecified whether chcf insulin use wants cpr but dni wh ich doesn't make sense but does not want to change anything. Ppt is his own person and educated.lives with sister who is hcp proxy and paid care givergoal [place] to [place] if had colonoscopy if [...] po lysommogram with cpap on 04/19/2022 at [facility] referred for non-restorative sleep. Found [...] notes from pts previous pain clinic in [facility].Pt does not want any aggressive measures nor wanting any narcotics d/t past hx of addition. Currently on cymbalta, gabapentin and voltaren, tylenol and recently went up on gabapentin. Reports pain controlled. Since pain clinic won't see him without [place] notes and unable to obtain and ppt reports controlled willl d/c referral ppt is okay with this. Related to Chronic bilateral low back pain without sciatica Chronic back pain r/ t multiple surgeries per pt. Pt has pain clinic referral though pain clinic is waiting for past notes from pts previous pain clinic in [facility].Pt does not want any aggressive measures nor wanting any narcotics d/t past hx of addition. Currently on cymbalta, gabapentin and voltaren, tylenol and recently went up on gabapentin. Reports pain controlled. Since pain clinic won't see him without [place] notes and unable to obtain and ppt [...] placed but unable to get notes from [place] and wont' see him. Reports currently pain controlled and does not need referral. Related to Cervical disc disease 10/26/[address] Sanjay finley from [facility] due to ongoing tremors affecting quality [...] gait and speech at times. However admitted [facility] 09/04-09/08 for syncope found to have orthostasis [...] plan to do echo. Treadmill standard with [facility] on 09/2008 due to chest pain found [...] can result in this had admit to [facility] [place] for syncope, falls, dizziness found [...] pain and reported had injections monthly in [place]. He states he had injections of Toradol. Worse pain in his back and his spine does not support his upper body and he falls from side to side but no falls recently until today. Sister said issue with morphine and this was stopped. Moved from [place] in apr 2021 to be with son who has brain tumor. Ppt was never seen by a provider needed [place] pain management notes and did not offer [...] po lysommogram with cpap on 04/19/2022 at [facility] referred for non-restorative sleep. Found [...] pain mangement but didn't have records from [facility] so wouldn't see him per pptneuro [...] opioids ie morphineppt enodrses the same (in [place])denies any current usewill re-eval for acute pain/surgical [...] saw ppt a s endo provider through [facility] [place] [place] last apr 2022 most recently was seen [...] do at end of month. 2022 labs [facility] [place] [place] Urine microalbumin neg, lipid panel 108/217/33/32, alc 8%, cr 1.1 and gfr 81. Lytes wnlgoal alc less than 7% and discussed microvascular and macrovascular complications of uncontrolled dm Related to Type 2 diabetes mellitus with diabetic polyneuropathy, unspecified whether chcf insulin use has seen urology in past [...] notes from pts previous pain clinic in [facility].Pt does not want any aggressive measures nor [...] notes from pts previous pain clinic in [facility].Pt does not want any aggressive measures nor [...] pain and reported had injections monthly in [place]. He states he had injections of Toradol. Worse pain in his back and his spine does not support his upper body and he falls from side to side but no falls recently. Sister said issue with morphine and this was stopped. Moved from [place] in apr 2021 to be with son who has brain tumor. Ppt was never seen by a provider needed [place] pain management notes and did not offer [...] po lysommogram with cpap on 04/19/2022 at [facility] referred for non-restorative sleep. Found [...] care givergoal [place] if not due for oneno longer needs to see endo I can manage thatcontinue to follow with pysch Related to Healthcare maintenance bipolar well control led without symptoms just some mild sadness as he wants to move to [place] but reports he is happy most days [...] his 30s when he was living in [place]. He reported his ex- determined he had [...] depressed as he wants to move to [place] but comes and goes. -Continue: seroquel 100mg [...] dependance on opioidsppt enodrses the same (in [place])denies any current usewill re-eval for acute pain/surgical [...] exam benign except for decreased sensationref to laxmsbgqa9h and labs todayeval ongoing Related to Type 2 diabetes mellitus with diabetic polyneuropathy, with long-term current use of insulin last a1c 7.00using C GMsugars sometimes labile - may be d/t antipsychotic use continues on humalog, lantus, metforminfoot exam benign except for decreased sensationref to bcoymirqs9j and labs todayeval ongoing Related to longterm (current) use of insulin continues on STATIN lipid panel today Related to Hypercholesteremia AVSS No longer takin g lisinoprilCurrently taking metoprolol Related to Hypertension, unspecified type no current useno que stions or concerns from patient or family present Related to History of cocaine abuse cont cymbalta, seroq uel, trazodone, ziprasidone 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 He did not receive the medication nor notify [facility] until Tuesday that the pharmacy could not fill as they were out of stock . Ppt did tell [facility] he would be going back to [facility] for symptoms on 06/28/22 at 4:15p. Ppt [...] type, unspecified laterality, unspecified part of lung [facility] 05/29 Admitted for sepsis secondary to likely aspiration pneumonia in the setting of extrapyramidal symptoms from Antipsychotics. He was given ceftriaxone, doxycycline sepsis resolved and was discharged home on 7 more days of augmentin.Medication changes:Antipsychotics have been prescribed by Jeremias Vizcarra's office-Seroquel 100mg at bedtime-Depakote DR 375mg BID Related to longterm current use of antipsychotic medication Pt reports [...] for medical records from pain clinic in [place] Related to Opioid dependence, in remission He [...] prescribed and managed by psych. 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 M inimal improvement w/ primidone. Pt and sister are concerned for Parkinson's (referral to neurology in place). Pt is on several psychiatric medications that could be the cause for the tremor. They are aware. Related to Essential tremor Pt reports history o f seizures in the past. Currently on depakote which could be suppressing his seizure activity. Will be following up w/ neuro. Related to Seizure Chronic back pain r/ t multiple surgeries per pt. Pt has pain clinic referral though pain clinic is waiting for past notes from pts previous pain clinic in [facility].Pt does not want any aggressive measures nor wanting any narcotics d/t past hx of addition. He is agreeable to wait for pain clinic. Related to Back pain, unspecified back location, unspecified back pain laterality, unspecified chronicity Pt had been diagnose d w/ bipolar and schizophrenia in his 30s when he was living in [place]. He reported his ex- determined he had [...] and made the following recommendations -Changed: insulin -380 [id number] 17unitsSTARTED lantus 24units in AMCONTINUE metformin 500mg BIDNeuropathy reported in paul feet; numbness and tingling.Abnormal monofilment exam, loss of protective sensation. Diabetic foot exam education. -Continue gabapentin-Education provided on new medications and daily feet checks. Related to Type 2 diabetes mellitus with diabetic polyneuropathy, unspecified whether terminal computer operator insulin use Pt at first was brandon [...] and made the following recommendations -Changed: insulin [id number]> 17unitsSTARTED lantus 24units in AMCONTINUE metformin 500mg [...] diabetes mellitus with diabetic polyneuropathy, unspecified whether terminal computer operator insulin use Discussed during las t visit [...] a PHV . Pt was brought to [facility] on 01/25 for back pain. He received 3 injections (1 in each arm and one in his left leg per sister). Today pt continues to complain of back pain. Pt had been going to pain clinic when he was living in [place] and reported relief w/ injections.Plan: Discussed trying [...] Current use of insulin History of T2DM [facility] age 34 being treated w/ [...] diabetes mellitus with diabetic polyneuropathy, unspecified whether terminal computer operator insulin use Denied cocaine abuse early in our conversation though then discussed cocaine use for a suicide attempt. -Has attempted suicide 2x in the past: cutting and cocaine overdose. Identifies his sister is a good support. Plan: drug screen Related to History of cocaine abuse History of T2DM [facility] age 34 being treated w/ [...] diabetes mellitus with diabetic polyneuropathy, unspecified whether chcf insulin use I have deterieratio n of [...] could be contributing. Related to Essential tremor I have deterieratio n of my spine [...] clinic referral Related to Cervical disc disease Pt had been diagnose d w/ bipolar and schizophrenia in his 30s when he was living in [place]. He reported his ex- determined he had [...] his 30s when he was living in [place]. He reported his ex- determined he had [...] dose. Related to PTSD (post-traumatic stress disorder) Pt reports I had a seizure along time ago . No clarity on when this event took place. He is on depakote. Related to Seizure ED treated w/ a IPP 10 years ago. He takes testosterone injections monthly though has not taken since leaving [place] 5 months ago. Discussed referring back to urology for guidance on the need to continue injections. Plan: refer to urology Related to Erectile dysfunction, unspecified erectile dysfunction type He had seen psychiat rist Bryon Vizcarra [...] valporic acid level, primidone level Related to longterm current use of antipsychotic medication BP 114/60-Currently taking metoprolol and lisinopril Related to Hypertension, unspecified type Per preenrollment re cords. Lipid panel ordered.-Currently taking [id number] daily Related to Hypercholesteremia History of T2DM [...]
--- NOTE | 2025-06-20 14:22 | MHC.OFFVIS ---
Intake Visit Reasons: OV- Right lateral malleolus fx DOI 02/03/25 Intake Note: Dylan is a 59 year old male who presents today for a follow up of right lateral malleolus fracture, DOI 02/03/25. At his last visit he was to continue with boot wear and follow up in 4 weeks with x-rays. Today patient reports pain and a snapping sensation with movement in his ankle. No numbness or tingling. Allergies No Known Allergies Allergy (Mild, Verified 05/30/25 15:20) NONE HPI HPI OV- Right lateral malleolus fx DOI 02/03/25: Details: 60-year-old gentleman returns to the office today approximately 4-1/2 months status post right lateral malleolus fracture. Patient states he feels something clicking on the lateral side of his ankle. He does ambulate without the boot and feels it is comfortable for the most part. States he has fractured this ankle several other times. He has not done any physical therapy. [facility] Medical History Dysautonomia orthostatic hypotension syndrome Fracture of distal end of fibula Cocaine abuse History of tobacco abuse History of alcohol abuse Penile lump Urinary incontinence GERD (gastroesophageal reflux disease) Osteoarthritis Injury of right hand Syncope Tremor of both hands Chronic low back pain Type 2 diabetes mellitus Depression Bipolar 1 disorder Schizophrenia Surgical History H/O cervical spine surgery Elbow joint replacement status Family History Mother HTN (hypertension) Diabetes Alzheimer disease Father Diabetes HTN (hypertension) Schizophrenia PVD (peripheral vascular disease) CAD (coronary artery disease) Bipolar 1 disorder Social History Household Members: Family Household Members Other:: sister Housing: Apartment Do you presently have visiting nurse or other home services: Yes Patient Tobacco Use Status: Former Tobacco user Advance Directives Date on File: 09/04/23 service: No Current occupational status: unemployed Review of Systems Const All systems reviewed & are unremarkable except as noted in HPI and below Physical Exam Const General: cooperative and no acute distress Orientation/consciousness: patient oriented x3 Resp Effort & Inspection: normal respiratory effort and able to speak in complete sentences Cardio Peripheral pulses: Peripheral pulses 2+ throughout Neuro General: patient oriented x3 Extrem Other: Right ankle normal to inspection no swelling. Mild tenderness over the distal fibula. No tenderness over the syndesmosis. Pulses present sensation intact. Results Reviewed Results Reviewed: X-rays of the right ankle obtained in the office today and reviewed by me show a healing minimally displaced distal fibular fracture. Ankle mortise intact. Assessment & Plan Assessment & Plan (1) Fracture of right ankle, lateral malleolus: Code(s): S82.61XA - Displaced fracture of lateral malleolus of right fibula, initial encounter for closed fracture Category: Medical Plan: At this time because of the uncertainty whether the fracture is healed or not an a CT scan of the right ankle has been ordered to further evaluate the quality of bone in the fracture healing. The patient will continue to weightbear as tolerated in a boot. I did update the order for physical therapy and explained he needs to begin physical therapy to help with his motion and strength. The patient is content with this plan and I will reach out to him once the CT scan has been completed. Orders: Orders XR ankle RT min 3V Today M25.571 - Pain in right ankle and joints of right foot CT ankle RT wo IV con Today S82.61XA - Displaced fracture of lateral malleolus of right fibula, initial encounter for closed fracture Coding Level of Care Code Est Pt Level 3 (58483) Complex EM visit Add On G2211 Diagnoses Fracture of right ankle, lateral malleolus S82.61XA
== END 2025-06-20 14:46 | disposition home or self-care (01) ==
LOC: HO.HOS 14:06
PROVIDERS: Visit Provider Physician Assistant
DX: S82.61XA Displaced fracture of lateral malleolus of right fibula, initial encounter for closed fracture (principal)
CPT/HCPCS: 99213; G2211

== ENCOUNTER → 2025-06-20 14:11 | Outpatient (BNV) | payer MEDICARE, MEDICAID, SELFPAY | PROVIDERS: Visit Provider Radiology Diagnostic Radiology | DX: S82.64XD Nondisplaced fracture of lateral malleolus of right fibula, subsequent encounter for closed fracture with routine healing (principal) | CPT/HCPCS: 73610 ==

== ENCOUNTER 2025-07-31 13:40 | Outpatient (REF) | payer MEDICARE, MEDICAID, SELFPAY ==
--- NOTE | ~2025-07-31 | US_ITS ---
EXAMINATION: US RETROPERITONEAL COMPLETE (RENAL) CLINICAL INFORMATION: BPH. Lower urinary tract symptoms.. COMPARISON: None available. TECHNIQUE: Real-time imaging of the kidneys and bladder. FINDINGS: RIGHT KIDNEY: 11 x 5 x 5 cm (SAG x AP x TRV). Volume: 130 cc. Normal echotexture. Lobulated contour. Renal cortical thickness is normal. No hydronephrosis. Likely extrarenal pelvis. No gross solid or cystic lesion. LEFT KIDNEY: 11 x 5 x 4 cm (SAG x AP x TRV). Volume: 105 cc. Normal echotexture. No lytic contour. Renal cortical thickness is normal. No hydronephrosis. Probable extrarenal pelvis. No gross solid or cystic lesion. BLADDER: Fluid-filled there is a 5 cm anechoic abnormality contracted to the right side of the bladder. There is a 6 mm mixed crescent-shaped isoechoic structure in the posterior Bladder wall. Bilateral ureteral jets are demonstrated. Prevoid bladder volume is 218 mL. Postvoid bladder volume is 25 mL. The prostate gland measures 4 x 3 x 4 cm and volume: 25 cc. US/US retroperitoneal comp IMPRESSION: Probable bladder diverticulum. 6 mm mixed lesion in the posterior urinary bladder wall. Recommend direct inspection. Prostate volume: 25 cc. 25 cc of retained urine in a post void image. Probable extrarenal pelvises. Electronically signed by: Noe Bolaños MD 07/31/2025 03:10 PM EST
== END 2025-07-31 13:41 | disposition home or self-care (01) ==
LOC: HO.US 13:40
PROVIDERS: PCP Internal Medicine; Visit Provider Urology
DX: R39.198 Other difficulties with micturition (principal); N40.1 Benign prostatic hyperplasia with lower urinary tract symptoms
CPT/HCPCS: 76770

== ENCOUNTER → 2025-07-31 13:45 | Outpatient (BNV) | payer MEDICARE, MEDICAID, SELFPAY | PROVIDERS: PCP Internal Medicine; Visit Provider Radiology Diagnostic Radiology | DX: R93.41 Abnormal radiologic findings on diagnostic imaging of renal pelvis, ureter, or bladder (principal) | CPT/HCPCS: 76770 ==